=== PATIENT | female | born 1935 | race Caucasian/White ===

== ENCOUNTER → 2017-01-06 | Outpatient (CLI) | payer MEDICARE, BC ==
[~2017-01-06] MED LIST: ALL220TA PO; AMIO200T PO; ASPI325T PO; ASPI81CH CHEW; ASPI81TA45 PO; CITRTAB7 PO; DIGO0.12 PO; DOXY100C PO; FOSA70TA PO; LEVO50TA4 PO; NAPR220C22 PO; PANT40TA3 PO; PRAV10TA PO; PRAV20 PO; TAB-TAB PO; VENTAER INH
== END ==
LOC: CLAB 08:24
PROVIDERS: ATTEND Family Medicine
DX: E03.9 Hypothyroidism, unspecified (principal)
CPT/HCPCS: 36415; 84443

== ENCOUNTER → 2017-03-24 | Outpatient (CLI) | payer MEDICARE, BC ==
[2017-03-24 09:23] LABS: FREE T4 1.14 NG/DL (0.76-1.46)
== END ==
LOC: CLAB 08:37
PROVIDERS: ATTEND Family Medicine
DX: E03.9 Hypothyroidism, unspecified (principal)
CPT/HCPCS: 36415; 84439; 84443

== ENCOUNTER → 2017-05-06 | Outpatient (CLI) | payer MEDICARE, BC ==
[2017-05-06 08:39] LABS: ANION GAP 7 MEQ/L (5-15); AST (GOT) 26 U/L (15-37); BICARBONATE 26.5 MEQ/L (21.0-32.0); BLOOD UREA NITROGEN 24 MG/DL (7-18); CHLORIDE 108 MEQ/L (98-107); POTASSIUM 4.5 MEQ/L (3.5-5.1); SODIUM (NA) 141 MEQ/L (136-145)
[2017-05-06 08:56] LABS: ALKALINE PHOSPHATASE 98 U/L (45-117); ALT (GPT) 52 U/L (10-53); DIGOXIN 0.6 NG/ML (0.8-2.0); FREE T4 1.08 NG/DL (0.76-1.46); GLOMERULAR FILTRATION RATE 68 ML/MIN (>89); GLUCOSE,FASTING 110 MG/DL (74-99); HDL CHOLESTEROL 28.1 MG/DL (40.0-60.0); LDL CHOLESTEROL 51 MG/DL (0-99); TOTAL BILIRUBIN ADULT 0.7 MG/DL (0.2-1.0)
== END ==
LOC: CLAB 07:51
PROVIDERS: ATTEND Family Medicine
DX: E03.9 Hypothyroidism, unspecified (principal); E78.2 Mixed hyperlipidemia; I48.2 Chronic atrial fibrillation
CPT/HCPCS: 36415; 80053; 80061; 80162; 84439; 84443

== ENCOUNTER 2017-05-08 01:40 | Inpatient (IN) | payer MEDICARE, BC ==
[~2017-05-08] VITALS: Ht 162.6 cm; Wt 58.5 kg
[2017-05-08] VITALS (24 sets, daily range): BP systolic 104–150; BP diastolic 48–67; PULSE 68–108; RESP 17–24; TEMP 97.9–99.4; O2SAT 86–100
[~2017-05-08 01:40] MED LIST changes: -AMIO200T PO; -ASPI325T PO; -ASPI81CH CHEW; -DIGO0.12 PO; -DOXY100C PO; -LEVO50TA4 PO; -NAPR220C22 PO; -PANT40TA3 PO; -PRAV10TA PO; -VENTAER INH
--- NOTE | 2017-05-08 01:42 | PD ---
HPI Chief Complaint: Respiratory Symptoms Time Seen by Provider: 01:42 Travel History International Travel<30 days: No Contact w/Intl Traveler<30days: No Traveled to known affect area: No History of Present Illness HPI 82-year-old female came to the emergency room with history of progressive shortness of breath upon exertion. Patient says that this has been going on for past 2-3 months. Today she was unable to get up and go to the kitchen to get some water because of extreme weakness and shortness of breath. She called 911. No history of chest pain. 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 Upon arrival her vital signs were relatively stable. Patient was awake and answering questions appropriately. She looked extremely pale and upon asking she denied any blood in her stools or vomit. No history of abdominal pain or any other pain. Patient says she's been taking one full strength aspirin every day for past few months. [facility] Past Medical History Narrative Medical List of her past medical, surgical, social and family history is reviewed from the nursing note. Arthritis: Yes Autoimmune Disease: No Blood Disorders: No Heart Rhythm Problems: No Cancer: No Cardiovascular Problems: No High Cholesterol: Yes Chest Pain: No Congestive Heart Failure: No COPD: No Cerebrovascular Accident: No Diabetes: No Endocrine: No Genitourinary: No Hepatitis: No Hiatal Hernia: No Immune Disorder: Yes (PSORIASIS) Musculoskeletal: Yes (ARTHRITIS) Neurologic: No Psychiatric: No Reproductive: No Respiratory: No (SMOKES 1/4 PPD) Seizures: No Thyroid Disease: No Menopausal: Yes Past Surgical History Abdominal Surgery: No AICD: No Body Medical Devices: left total knee replaced Cardiac Surgery: No Ear Surgery: No Endocrine Surgery: No Eye Surgery: Yes (RT EYE CATARACT EXTRACTION) Genitourinary Surgery: No Gynecologic Surgery: No Joint Replacement: Yes (LEFT KNEE, RIGHT HIP) Oral Surgery: Yes (CAPS) Pacemaker: No Thoracic Surgery: No Social History Alcohol Use: Yes (OCCASIONALLY - TWICE PER MONTH) Tobacco Use: No (QUIT 10/21-1/ PPD PRIOR TO QUTTING) Substance Use: No Allergies-Medications (Allergen,Severity, Reaction): Coded Allergies: No Known Allergies (Verified , 05/08/17) Comments No known drug allergies. Reported Meds & Prescriptions Reported Meds & Active Scripts Active Reported Digoxin 0.125 Mg Tab 0.125 Mg PO DAILY Levothyroxine (Levothyroxine Sodium) 50 Mcg Tab 50 Mcg PO DAILY Aleve (Naproxen Sodium) 220 Mg Capsule 220 Mg PO DAILY Pravastatin 10 Mg Tab 10 Mg PO DAILY Fosamax (Alendronate Sodium) 70 Mg Tab 70 Mg PO Q7D Aspirin 325 Mg Tab 325 Mg PO DAILY Narrative Medication List of her medications reviewed from the nursing note. Review of Systems Except as stated in HPI: all other systems reviewed are Neg Physical Exam Narrative GENERAL: Awake, alert, elderly, anxious SKIN: Focused skin assessment warm/dry. Pale HEAD: Atraumatic. Normocephalic. EYES: Pupils equal and round. No scleral icterus. No injection or drainage. Pallor ENT: No nasal bleeding or discharge. Mucous membranes pink and moist. NECK: Trachea midline. No JVD. CARDIOVASCULAR: Regular rate and rhythm. No murmur appreciated. RESPIRATORY: No accessory muscle use. Clear to auscultation. Breath sounds equal bilaterally. GASTROINTESTINAL: Abdomen soft, non-tender, nondistended. Hepatic and splenic margins not palpable. MUSCULOSKELETAL: No obvious deformities. No clubbing. No cyanosis. No edema. NEUROLOGICAL: Awake and alert. No obvious cranial nerve deficits. Motor grossly within normal limits. Normal speech. PSYCHIATRIC: Appropriate mood and affect; insight and judgment normal. Data Data Last Documented VS Orders Basic Metabolic Panel (Bmp) (05/08/17 01:56) Complete Blood Count With Diff (05/08/17 01:56) Prothrombin Time / Inr (Pt) (05/08/17 01:56) Type And Screen (05/08/17 01:56) Ecg Monitoring (05/08/17 01:56) Iv Access Insert/Monitor (05/08/17 01:56) Oximetry (05/08/17 01:56) Sodium Chloride 0.9% Flush (Ns Flush) (05/08/17 02:00) Pantoprazole Inj (Protonix Inj) (05/08/17 02:00) Pantoprazole Inj (Protonix Inj) (05/08/17 02:00) Troponin I (05/08/17 01:57) Red Blood Cells (Rbc) (05/08/17 03:10) Blood Product Administration .UPON TRANSFUSION (05/08/17 03:10) Sodium Chlor 0.9% 250 Ml Inj (Ns 250 Ml (05/08/17 03:15) Platelet Pheresis (05/08/17 03:34) Admit To Inpatient (05/08/17 ) Code Status (05/08/17 03:34) Vital Signs (Adult) RALPH.Q1H (05/08/17 03:34) Activity Bed Rest (05/08/17 03:34) Elevate Head Of Bed (05/08/17 03:34) Intake + Output Q1H (05/08/17 03:34) Diet Npo (05/08/17 Breakfast) Sodium Chlor 0.9% 1000 Ml Inj (Ns 1000 M (05/08/17 03:34) Acetaminophen (Tylenol) (05/08/17 03:45) Ondansetron Inj (Zofran Inj) (05/08/17 03:45) Albuterol-Ipratropium Neb (Duoneb Neb) (05/08/17 03:45) Complete Blood Count With Diff (05/09/17 04:00) Basic Metabolic Panel (Bmp) (05/09/17 04:00) Resp Oxygen Danie C Titrat 1-4 L (05/08/17 ) Consult Gastroenterology (05/08/17 ) Special Distribution Clerk / Telemetry RALPH.Q8H (05/08/17 03:34) Scd Bilateral/Knee High RALPH.BID (05/08/17 03:34) Pharmacologic Contraindication (05/08/17 03:34) ^ Initiate Protocol (05/08/17 03:34) Instruction (05/08/17 03:34) [facility] Nursing Information (05/08/17 03:45) Chlorhexidine 2% Cloth (Chlorhexidine 2% (05/08/17 04:00) Chlorhexidine 2% Cloth (Chlorhexidine 2% (05/08/17 03:45) Mrsa Pcr Surveillance (05/08/17 03:34) Inpatient Certification (05/08/17 ) Pantoprazole Inj (Protonix Inj) (05/08/17 09:00) (Hub Use Only)Inp Phy Cons/Ref (05/08/17 ) Pantoprazole Inj (Protonix Inj) (05/08/17 04:00) Admit Order (Ed Use Only) (05/08/17 04:38) Labs Laboratory Tests Test 05/08/17 05/08/17 05/08/17 02:25 03:17 03:51 White Blood Count 8.4 TH/MM3 Red Blood Count 1.24 MIL/MM3 Hemoglobin 3.8 GM/DL Hematocrit 10.7 % Mean Corpuscular Volume 86.0 FL Mean Corpuscular Hemoglobin 30.6 PG Mean Corpuscular Hemoglobin 35.5 % Concent Red Cell Distribution Width 13.6 % Platelet Count 4 TH/MM3 Mean Platelet Volume 8.7 FL Neutrophils (%) (Auto) 56.0 % Lymphocytes (%) (Auto) 39.3 % Monocytes (%) (Auto) 3.7 % Eosinophils (%) (Auto) 1.0 % Basophils (%) (Auto) 0.0 % Neutrophils # (Auto) 4.7 TH/MM3 Lymphocytes # (Auto) 3.3 TH/MM3 Monocytes # (Auto) 0.3 TH/MM3 Eosinophils # (Auto) 0.1 TH/MM3 Basophils # (Auto) 0.0 TH/MM3 CBC Comment AUTO DIFF Differential Comment AUTO DIFF CONFIRMED Platelet Estimate RARE Platelet Morphology Comment NORMAL Reticulocyte Count 0.1 % Absolute Reticulocyte Count 1.2 MIL/L Haptoglobin 132 MG/DL Prothrombin Time 10.8 SEC Prothromb Time International 1.0 RATIO Ratio Sodium Level 142 MEQ/L Potassium Level 4.2 MEQ/L Chloride Level 108 MEQ/L Carbon Dioxide Level 23.1 MEQ/L Anion Gap 11 MEQ/L Blood Urea Nitrogen 33 MG/DL Creatinine 0.89 MG/DL Estimat Glomerular Filtration 61 ML/MIN Rate Random Glucose 122 MG/DL Calcium Level 9.0 MG/DL Iron Level 249 MCG/DL Total Iron Binding Capacity 258 MCG/DL Percent Iron Saturation 96.7 % Ferritin 459 NG/ML Lactate Dehydrogenase 241 U/L Troponin I 0.07 NG/ML Blood Type AB NEGATIVE Antibody Screen NEGATIVE Crossmatch Leukocyte-Reduced Red Blood Cells Blood Bank Comment [facility] Medical Decision Making Medical Screen Exam Complete: Yes Emergency Medical Condition: Yes Medical Record Reviewed: Yes Interpretation(s) Twelve-lead EKG was reviewed by me. Normal sinus rhythm, anterior lateral ST depressions, normal axis. The EKG is grossly changed from the last EKG that's available in our records from 2013. Heart rate of 77 bpm. Differential Diagnosis GI bleed, ACS, congestive heart failure Narrative Course 4 AM blood test results were back and it showed severe anemia and thrombocytopenia. Patient's troponin is elevated as well. Patient was given 2 units of PRBC transfusion. Given her severe anemia I have decided to admit her to the intensive care unit. [facility] accepted the patient. She is obviously not a candidate for anticoagulation given her GI bleed and thrombocytopenia. Critical Care Narrative Aggregate critical care time was 45 minutes. Time to perform other separately billable procedures was not included in the critical care time. My time did not include minutes spent treating any other patients simultaneously or on activities that did not directly contribute to the patient's treatment. The services I provided to this patient were to treat and/or prevent clinically significant deterioration that could result in: Severe symptomatic anemia, thrombocytopenia, elevated troponin, EKG changes I provided critical care services requiring my management, as noted below: Chart data review, documentation time, medication orders and management, vital sign assessments/reviewing monitor data, ordering and reviewing lab tests, ordering and interpreting/reviewing x-rays and diagnostic studies, care of the patient and discussion of the patient with the admitting physicians. Procedures EKG Prior to Arrival: Yes Physician Communication Physician Communication Dr. Ray Diagnosis Primary Impression: Symptomatic anemia Additional Impressions: Thrombocytopenia Elevated troponin I level Abnormal EKG Shortness of breath Admitting Information Admitting Physician Requests: Admit Andrade Valerio MD May 08, 2017 01:42
[2017-05-08] MEDS ORDERED: ASPI81CH CHEW (01:58)
[2017-05-08] MEDS ORDERED: PANTOPRAZOLE INJ 80 MG in SODIUM CHLORIDE 0.9% INJ 100 ML IV SCH ×2 (02:00→04:00)
[2017-05-08] MEDS ORDERED: PANTOPRAZOLE INJ 80 MG in SODIUM CHLORIDE 0.9% INJ 35 ML IV ONE (02:00)
[2017-05-08] MEDS ORDERED: SODIUM CHLORIDE 0.9% FLUSH 10 ML FLUSH IVF PRN (02:00)
[2017-05-08] MEDS ORDERED: LEVO50TA4 PO (02:01)
[2017-05-08] MEDS ORDERED: ASPI325T PO (02:01)
[2017-05-08] MEDS ORDERED: DIGO0.12 PO (02:01)
[2017-05-08] MEDS ORDERED: FOSA70TA PO (02:01)
[2017-05-08] MEDS ORDERED: NAPR220C22 PO (02:01)
[2017-05-08] MEDS ORDERED: PRAV10TA PO (02:01)
[2017-05-08 02:51] LABS: AUTOMATED NEUTROPHIL # 4.7 TH/MM3 (1.8-7.7); EOSINOPHIL # 0.1 TH/MM3 (0-0.4); LYMPH % 39.3 % (9.0-44.0); LYMPHOCYTE # 3.3 TH/MM3 (1.0-4.8); MEAN CORPUSCULAR HEMOGLOBIN 30.6 PG (27.0-34.0); MEAN CORPUSCULAR HGB CONC 35.5 % (32.0-36.0); MONO % 3.7 % (0.0-8.0); RED BLOOD COUNT 1.24 MIL/MM3 (4.00-5.30); RED CELL DISTRIBUTION WIDTH 13.6 % (11.6-17.2); WHITE BLOOD COUNT 8.4 TH/MM3 (4.0-11.0)
[2017-05-08 03:02] LABS: HEMO FLAGS AUTO DIFF
[2017-05-08 03:05] LABS: BICARBONATE 23.1 MEQ/L (21.0-32.0); HEMATOCRIT 10.7 % (35.0-46.0); PLATELET COUNT 4 TH/MM3 (150-450); POTASSIUM 4.2 MEQ/L (3.5-5.1)
[2017-05-08 03:06] LABS: PROTHROMBIN TIME - PATIENT 10.8 SEC (9.8-11.6)
[2017-05-08 03:09] LABS: PLATELET ESTIMATE SMEAR RARE (NORMAL)
[2017-05-08 03:10] LABS: PLATELET MORPHOLOGY NORMAL (NORMAL); SCAN/DIFF AUTO DIFF CONFIRMED
[2017-05-08] MEDS ORDERED: SODIUM CHLOR 0.9% 250 ML INJ 250 ML IV ONE ×2 (03:15→13:15)
[2017-05-08] MEDS ORDERED: SODIUM CHLOR 0.9% 1000 ML INJ 1,000 ML IV SCH (03:34)
[2017-05-08] MEDS ORDERED: CHLORHEXIDINE GLUCONATE 2 % 1 PACK (2 CLOTHS) TOP PRN (03:45)
[2017-05-08] MEDS ORDERED: ONDANSETRON HCL 4 MG/2 ML VIAL IV PRN (03:45)
[2017-05-08] MEDS ORDERED: MISCELLANEOUS NURSING INFORMATION XX SCH (03:45)
[2017-05-08] MEDS ORDERED: ACETAMINOPHEN 325 MG TAB PO PRN (03:45)
--- NOTE | 2017-05-08 03:53 | HHI.HP ---
[facility] Service Critical Care Medicine Primary Care Physician Roe Chairez MD Admission Diagnosis Severe anemia, thrombocytopenia Diagnosis: Chief Complaint: Fatigue Travel History International Travel<30 Days: No Contact w/Intl Traveler <30 Da: No Traveled to Known Affected Are: No History of Present Illness 82 y/o previously active woman presents with fatigue. Feels like legs weigh large amount, heavy. Hgb 3.8 and stool occult blood positive. EKG with ST-T depression. Normotensive. No chest pain. Platelet count 4 total. Excessive bruising for months now. Only change is that thyroid med was recently increased. Past Family Social History Allergies: Coded Allergies: No Known Allergies (Verified , 05/08/17) Past Medical History Past Medical History Arthritis: Yes Autoimmune Disease: No Blood Disorders: No Heart Rhythm Problems: No Cancer: No Cardiovascular Problems: No High Cholesterol: Yes Chest Pain: No Congestive Heart Failure: No COPD: No Cerebrovascular Accident: No Diabetes: No Endocrine: No Genitourinary: No Hepatitis: No Hiatal Hernia: No Immune Disorder: Yes (PSORIASIS) Musculoskeletal: Yes (ARTHRITIS) Neurologic: No Psychiatric: No Reproductive: No Respiratory: No (SMOKES 1/4 PPD) Seizures: No Thyroid Disease: No Menopausal: Yes Past Surgical History Abdominal Surgery: No AICD: No Body Medical Devices: left total knee replaced Cardiac Surgery: No Ear Surgery: No Endocrine Surgery: No Eye Surgery: Yes (RT EYE CATARACT EXTRACTION) Genitourinary Surgery: No Gynecologic Surgery: No Joint Replacement: Yes (LEFT KNEE, RIGHT HIP) Oral Surgery: Yes (CAPS) Pacemaker: No Thoracic Surgery: No Social History Alcohol Use: Yes (OCCASIONALLY - TWICE PER MONTH) Tobacco Use: No (QUIT 10/21-1/2 PPD PRIOR TO QUTTING) Substance Use: No Allergies-Medications Allergies-Medications (Allergen,Severity, Reaction): Coded Allergies: No Known Allergies (Verified , 01/22/15) Reported Meds & Prescriptions Reported Meds & Active Scripts Active Reported Aleve (Naproxen Sodium) 220 Mg Tab 220 Mg PO TID PRN Aspirin 81 mg EC Lo-Dose (Aspirin) 81 Mg Tab 81 Mg PO DAILY Citracal + D3 Maximum (Calcium Citrate/Cholecalciferol) Tab 1 Tab PO DAILY Pravastatin Sodium 20 Mg Tab 10 Mg PO HS Fosamax (Alendronate Sodium) 70 Mg Tab 70 Mg PO Q7D TAKE 30 MINUTES BEFORE THE MORNING MEAL, ONLY WATER pt normally takes on tuesday Multivitamin (Multivitamins) 1 Tab Tab 1 Tab PO DAILY Physical Exam Vital Signs Vital Signs Date Time Temp Pulse Resp B/P Pulse Ox O2 Delivery O2 Flow Rate FiO2 05/08/17 01:46 79 18 95 Nasal Cannula 2 05/08/17 01:42 98.6 82 18 122/58 96 Physical Exam Gen: Ill appearing. Head: Normal. Neck: Supple. Lungs: Clear, no wheezes or crackles. Heat: NL S1S2, 2/6 JUDITH LSB. Abdomen: Soft, no guarding or tenderness. Extremities: Warm, well perfused. Neuro: O X 3, alert, cooperative. Moves 4 limbs to command. Speech clear. Laboratory Laboratory Tests Test 05/08/17 02:25 White Blood Count 8.4 Red Blood Count 1.24 Hemoglobin 3.8 Hematocrit 10.7 Mean Corpuscular Volume 86.0 Mean Corpuscular Hemoglobin 30.6 Mean Corpuscular Hemoglobin 35.5 Concent Red Cell Distribution Width 13.6 Platelet Count 4 Mean Platelet Volume 8.7 Neutrophils (%) (Auto) 56.0 Lymphocytes (%) (Auto) 39.3 Monocytes (%) (Auto) 3.7 Eosinophils (%) (Auto) 1.0 Basophils (%) (Auto) 0.0 Neutrophils # (Auto) 4.7 Lymphocytes # (Auto) 3.3 Monocytes # (Auto) 0.3 Eosinophils # (Auto) 0.1 Basophils # (Auto) 0.0 CBC Comment AUTO DIFF Differential Comment AUTO DIFF CONFIRMED Platelet Estimate RARE Platelet Morphology Comment NORMAL Prothrombin Time 10.8 Prothromb Time International 1.0 Ratio Sodium Level 142 Potassium Level 4.2 Chloride Level 108 Carbon Dioxide Level 23.1 Anion Gap 11 Blood Urea Nitrogen 33 Creatinine 0.89 Estimat Glomerular Filtration 61 Rate Random Glucose 122 Calcium Level 9.0 Troponin I 0.07 Result Diagram: 05/08/1722405/08/17224 Assessment and Plan Assessment and Plan Assessment: 1. Anemia (Hgb 3.8) 2. Thrombocytopenia. 3. Myocardial Ischemia on EKG (not seen by me). Plan: 1. Transfuse 2 units prbcs, one pack platelets. 2. Peripheral blood smear. 3. Hold ASA. 4. Protonix iv bid. 5. No chemical DVT px. 6. SCDs. 7. GI consult after transfusion platelets. 8. NPO. 9. Hematology consult. Overall impression: Critically ill with severe anemia and ischemic changes on ECG. Looks like marrow dysfunction/suppression. Source of blood loss probably slow GI. Critical Care 38 mins Hood Ray MD May 08, 2017 03:53
[2017-05-08] MEDS: PANTOPRAZOLE SODIUM 40 MG VIAL IV PUSH SCH ×2 (10:17→20:29)
[2017-05-08] MEDS ORDERED: MAGNESIUM SULFATE INJ 4 GM in SODIUM CHLORIDE 0.9% INJ 92 ML IV PRN (11:15)
[2017-05-08] MEDS ORDERED: SODIUM PHOSPHATE INJ 30 MMOL in SODIUM CHLOR 0.9% 250 ML INJ 240 ML IV PRN (11:15)
[2017-05-08] MEDS ORDERED: POTASSIUM PHOSPHATE MONOBASIC 500 MG TAB PO/TUBE PRN (11:15)
[2017-05-08] MEDS ORDERED: POTASSIUM PHOSPHATE INJ 30 MMOL in SODIUM CHLOR 0.9% 250 ML INJ 250 ML IV PRN (11:15)
[2017-05-08] MEDS ORDERED: POTASSIUM CHLOR 20 MEQ PREMIX 100 ML IV PRN ×2 (11:15)
[2017-05-08] MEDS ORDERED: MAGNESIUM OXIDE 400 MG TAB PO PRN (11:15)
[2017-05-08] MEDS ORDERED: MAGNESIUM SULFATE INJ 2 GM in SODIUM CHLORIDE 0.9% INJ 96 ML IV PRN (11:15)
[2017-05-08] MEDS ORDERED: POTASSIUM PHOSPHATE MONOBASIC 500 MG TAB PO PRN (11:15)
[2017-05-08] MEDS ORDERED: POTASSIUM CHLOR 40 MEQ PREMIX 100 ML IV PRN ×2 (11:15)
[2017-05-08 11:49] LABS: LDH SERUM 241 U/L (84-246); TRANSFERRIN IRON PROFILE 184 MG/DL (200-360)
[2017-05-08 11:51] LABS: FERRITIN 459 NG/ML (8-252)
[2017-05-08 12:05] LABS: RETIC % 0.1 % (0.4-3.0)
[2017-05-08 12:06] LABS: REVIEW FLAG FINAL
--- NOTE | 2017-05-08 12:07 | EKG ---
Date Performed: 05/08/2017 Time Performed: 01:49:43 PTAGE: 82 years EKG: Sinus rhythm POSSIBLE RIGHT VENTRICULAR CONDUCTION DELAY NONSPECIFIC ST & T-WAVE ABNORMALITY Compared to previous tracing, diffuse ST-T wave changes are now present. BORDERLINE ECG PREVIOUS TRACING : 04/02/2014 09.22 DOCTOR: Meliton Davison Interpretating Date/Time 05/08/2017 12:06:24
[2017-05-08] MEDS: RESP: ALBUTEROL 2.5 MG/IPRATROPIUM 0.5 MG NEB (PRN) INH (17:03)
--- NOTE | 2017-05-08 17:26 | MB ---
cc: JONAH HERNANDEZ M.D. DATE OF CONSULTATION: 05/08/2017 REASON FOR CONSULTATION: Severe anemia. DATE OF : 1935. HISTORY OF PRESENT ILLNESS: Thank you for the consultation. This is an 82-year-old lady who was doing well except in the last week or so when she started having significant fatigue, general weakness, shortness of breath, dyspnea on exertion and stated that her legs felt heavy. She was found to have significant anemia with a hemoglobin of 3.8 and low platelets of 4. The patient denied any GI bleed. No nausea. No vomiting. No hematemesis. No diarrhea or black stool. She had hemoccult positive in the emergency room. The patient denied any other problem except general weakness. No abdominal pain. No change in bowel habits. PAST SURGICAL HISTORY: Significant for eye surgery, left knee and right hip replacement. SOCIAL HISTORY: Positive for occasional alcohol, maybe few times a month. No tobacco or drugs. PAST MEDICAL HISTORY: Significant for: 1. Hypercholesterolemia. 2. Psoriasis. 3. Arthritis. ALLERGIES NO KNOWN DRUG ALLERGIES. MEDICATIONS: Reviewed in the chart. REVIEW OF SYSTEMS: All 12-point negative except for the history of present illness. PHYSICAL EXAMINATION: GENERAL: Alert, oriented no acute distress. VITAL SIGNS: Stable. HEAD, EYES, EARS, NOSE, THROAT: The pupils are reactive to light. NECK: The neck is supple. CHEST: Clear to auscultation and precaution. CARDIAC: Regular rate and rhythm. ABDOMEN: The abdomen is soft, nontender and nondistended. EXTREMITIES: No cyanosis, clubbing or edema. No abnormality in range of motion. NEUROLOGIC: Neurologically intact. PSYCHIATRIC: Psychologically appropriate. LABORATORY DATA: White count 8.4, hemoglobin 3.8, platelets 4. INR 1.0. Iron studies: 249 for the iron saturation 96.7. Troponin 0.07. BUN 33, creatinine 0.89. ASSESSMENT AND PLAN; 82-year-old lady with severe anemia, hemoglobin 3.8, but also very low platelet. The low white count is most likely aplastic anemia but the patient has heme-positive stools and it could be related to bleeding from the mucosal lining because of the low platelets. I am not sure if this is ITP or just bone marrow suppression. 1. I think the patient would need an upper endoscopy and colonoscopy at some point but for now she needs supportive care. 2. Packed RBCs, platelets. 3. Hematology consult. 4. Watch for bleeding. 5. Once she is stable, she will need a colonoscopy and EGD. The patient was accompanied by her daughter and they understand the plan. MD JOSEPH Schneider/JAMES /5:07 PM /5:21 PM
[2017-05-08] MEDS: CHLORHEXIDINE GLUCONATE 2 % 1 PACK (2 CLOTHS) TOP SCH (19:21)
[2017-05-08 19:22] LABS: HEMATOCRIT 21.6 % (35.0-46.0); MEAN CELL VOLUME 85.3 FL (80.0-100.0); MEAN CORPUSCULAR HEMOGLOBIN 29.7 PG (27.0-34.0); MEAN CORPUSCULAR HGB CONC 34.9 % (32.0-36.0); PLATELET COUNT 79 TH/MM3 (150-450); RED BLOOD COUNT 2.53 MIL/MM3 (4.00-5.30); RED CELL DISTRIBUTION WIDTH 14.7 % (11.6-17.2); WHITE BLOOD COUNT 9.7 TH/MM3 (4.0-11.0)
[2017-05-08 19:36] LABS: INDIRECT BILIRUBIN 1.7 MG/DL (0.0-0.8); TOTAL BILIRUBIN ADULT 2.1 MG/DL (0.2-1.0); TOTAL PROTEIN SPE 6.8 GM/DL (6.0-7.6)
[2017-05-09] VITALS (16 sets, daily range): BP systolic 101–141; BP diastolic 55–67; PULSE 70–104; RESP 16–21; TEMP 96.7–98.5; O2SAT 92–99
[2017-05-09 01:20] LABS: HEMATOCRIT 21.6 % (35.0-46.0); MEAN CELL VOLUME 83.3 FL (80.0-100.0); MEAN CORPUSCULAR HEMOGLOBIN 28.4 PG (27.0-34.0); MEAN CORPUSCULAR HGB CONC 34.1 % (32.0-36.0); PLATELET COUNT 72 TH/MM3 (150-450); WHITE BLOOD COUNT 11.1 TH/MM3 (4.0-11.0)
[2017-05-09 01:22] LABS: REVIEW FLAG FINAL
[2017-05-09] MEDS ORDERED: FUROSEMIDE 40 MG/4 ML VIAL IV SCH (01:30)
[2017-05-09] MEDS ORDERED: DIGOXIN 0.125 MG TAB PO SCH (02:45)
[2017-05-09] MEDS: CHLORHEXIDINE GLUCONATE 2 % 1 PACK (2 CLOTHS) TOP SCH (04:11)
[2017-05-09 05:18] LABS: AUTOMATED NEUTROPHIL # 7.4 TH/MM3 (1.8-7.7); BASOPHIL % 0.1 % (0.0-2.0); EOSINOPHIL % 0.1 % (0.0-4.0); HEMATOCRIT 22.4 % (35.0-46.0); LYMPH % 12.5 % (9.0-44.0); LYMPHOCYTE # 1.1 TH/MM3 (1.0-4.8); MEAN CELL VOLUME 85.6 FL (80.0-100.0); MEAN CORPUSCULAR HEMOGLOBIN 29.8 PG (27.0-34.0); MEAN CORPUSCULAR HGB CONC 34.9 % (32.0-36.0); MONO % 5.1 % (0.0-8.0); NEUT % 82.2 % (16.0-70.0); PLATELET COUNT 59 TH/MM3 (150-450); RED BLOOD COUNT 2.62 MIL/MM3 (4.00-5.30); WHITE BLOOD COUNT 9.1 TH/MM3 (4.0-11.0)
[2017-05-09 05:20] LABS: HEMO FLAGS AUTO DIFF
[2017-05-09 05:23] LABS: APTT (PATIENT) 28.2 SEC (24.3-30.1); PROTHROMBIN TIME - PATIENT 10.7 SEC (9.8-11.6)
[2017-05-09 06:03] LABS: BICARBONATE 26.3 MEQ/L (21.0-32.0); POTASSIUM 3.3 MEQ/L (3.5-5.1)
--- NOTE | 2017-05-09 06:16 | RADRPT ---
EXAM DATE/TIME: 05/09/2017 05:26 [place] COMPARISON: CT PULMONARY ANGIOGRAM, May 21, 2014, 11:03. INDICATIONS : History of mediastinal mass, rule out thymoma mass aplastic anemia. RADIATION DOSE: 3.33 CTDIvol (mGy) MEDICAL HISTORY : None SURGICAL HISTORY : None. ENCOUNTER: Initial ACUITY: 1 day PAIN SCALE: 0/10 LOCATION: Bilateral chest TECHNIQUE: Volumetric scanning of the chest was performed. Using automated exposure control and adjustment of t he mA and/or kV according to patient size, radiation dose was kept as low as reasonably achievable to obtain optimal diagnostic quality images. DICOM format image data is available electronically for r eview and comparison. FINDINGS: LUNGS: Abnormal appearance to lungs with multifocal areas of consolidation involving almost the entire right lower lung and subsegmental left lower lobe, posterior segment both upper lobes and scattered areas in the upper lobes. There are some focal consolidative areas in the midlung on the right side. Prio r CT in 2013 demonstrated a 2 cm mass medial midlung; stable in size and PLEURAE: There are small bilateral pleural effusions, measuring up to 12 mm in thickness on both sides. The p leural effusion is similar on the left when compared to 2014 and larger on the right MEDIASTINUM: Stable appearance to the anterior mediastinal mass with some rim calcification; size 3.2 x 4.0 cm. T here is an extension of this mass superiorly which is noncalcified. The configuration and size is un changed from prior CT in May 2014. AXILLAE: Nonspecific bilateral axillary nodes, similar to prior. The largest node measures 13 mm. MUSCULOSKELETAL: Within normal limits for patient age. 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 CONCLUSION: 1. Severe bilateral partially consolidative infiltrates involving all segments of both lungs, a new f inding when compared to 2013. 2. 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 William Carrillo MD on May 09, 2017 at 6:08 Board Certified Radiologist. This report was verified electronically.
[2017-05-09 06:24] LABS: HEMATOCRIT 22.4 % (35.0-46.0); MEAN CELL VOLUME 83.3 FL (80.0-100.0); MEAN CORPUSCULAR HEMOGLOBIN 29.8 PG (27.0-34.0); MEAN CORPUSCULAR HGB CONC 35.8 % (32.0-36.0); PLATELET COUNT 62 TH/MM3 (150-450); RED BLOOD COUNT 2.69 MIL/MM3 (4.00-5.30); RED CELL DISTRIBUTION WIDTH 15.1 % (11.6-17.2); WHITE BLOOD COUNT 8.2 TH/MM3 (4.0-11.0)
[2017-05-09 06:34] LABS: REVIEW FLAG FINAL
[2017-05-09] MEDS ORDERED: FUROSEMIDE 100 MG/10 ML VIAL IV PUSH ONE (07:00)
[2017-05-09 07:02] LABS: PLATELET ESTIMATE SMEAR LOW (NORMAL); PLATELET MORPHOLOGY NORMAL (NORMAL); SCAN/DIFF AUTO DIFF CONFIRMED
--- NOTE | 2017-05-09 08:17 | MB ---
cc: ADELE MEDINA MD, RUBY ANNE E. M.D. DATE OF CONSULTATION: 05/08/2017 DATE OF [address] Bill Mckeon CHIEF COMPLAINT Dr. Mckeon requested consultation for Ms. Vargas regarding pancytopenia and low retic count. HISTORY OF PRESENT ILLNESS Mrs. Vargas is an 82-year-old woman with history of pulmonary embolism, arthritis, hypercholesterolemia, hypothyroidism, psoriasis. She is postmenopausal, has osteoporosis is taking bisphosphonate once weekly. She smokes a quarter pack per day. She has a known pulmonary nodule and mediastinal lesion dating back to 2013. She developed complications of a pulmonary embolism the right lower right middle lobe after a right hip replacement in 2013. Additional findings from that was a 4 cm anterior mediastinal mass and a 2 cm right lung mass which have been stable. 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 There were no other imaging study available. There previous CT PET scan was not available. Mrs. Vargas presents with severe shortness of breath upon exertion. She reports having increasing shortness of breath and fatigue over the last [id number] months. She denies any overt bleeding. Denies any bright red blood per rectum. She was heme positive in the emergency room. She denies any nausea or vomiting. She states her appetite is good. She is trying to maintain her weight being a [employer] lifetime membership. She takes an aspirin since her pulmonary embolism. She has had no problems with her aspirin before. On admission to the hospital her white count is 8.4, hemoglobin of 3.8, platelet count of 4000. MCV was 86. Her retic count is inappropriately low. Haptoglobin is 132. LDH is normal. Iron studies show an elevated ferritin, saturation of 96%. The LDH is 241 which was normal. PT is prolonged. She has no bruising in the skin. No PTT was available. Blood bank test shows the antibody screen is negative up. She is AB negative. She denies any fevers, chills, night sweats. No intercurrent illness. She just had progressive symptoms of shortness of breath. She had a recent increase in her thyroid medicine titrated by her primary physician. It was the same medicine but increase in dose. She noticed leg edema. PAST MEDICAL HISTORY Of: 1. Hypothyroidism. 2. Psoriasis. 3. Arthritis. 4. Chronic tobacco use. 5. Pulmonary embolism. 6. Pulmonary nodule. 7. Anterior mediastinal mass. PAST SURGICAL HISTORY 1. Left knee replacement. 2. Right hip replacement. 3. Right cataract. 4. Oral surgery. SOCIAL HISTORY She drinks alcohol occasionally. Denies any illicit drug use. FAMILY HISTORY Both parents of old age in their late 90s. ALLERGIES NO KNOWN DRUG ALLERGIES. CURRENT MEDICATIONS Include: 1. Digoxin. 2. Levaquin. 3. Aleve. 4. Pravastatin. 5. Fosamax. 6. Aspirin. PHYSICAL EXAMINATION VITAL SIGNS: Temperature 99.3, heart rate 70, respiratory rate 20, blood pressure 117/59, saturation 93%. GENERAL: Mrs. Vargas is a anxious-appearing, pale, 82-year-old woman, quite forgetful. HEENT: Her pupils are round, reactive to light and accommodation. Conjunctivae pink. Oropharynx is clear. NECK: Supple. LUNGS: Clear anteriorly. CARDIOVASCULAR: Exam reveals normal rate, rhythm. ABDOMEN: Benign. No hepatosplenomegaly. EXTREMITIES: Lower extremity with no edema. Left knee surgery scar. LABORATORY DATA As described above. IMAGING No imaging study. ASSESSMENT/PLAN Mrs. Vargas is an 82-year-old woman with multiple medical problems. She has had [id number] months history of progressive symptoms of shortness of breath. She comes in with normocytic anemia, severe and mild thrombocytopenia with evidence of GI bleeding from heme-positive stools. Lengthy discussion with Mrs. Vargas and her daughter present at the consultation and differential. Concern about the GI loss. The GI bleed would explain the decrease in hemoglobin. It is quite concerning that her platelet count is so low at 4000 and her mean platelet volume is normal at 8.7. She responded to transfusion. Her platelet count increased to 27,000. Her hemoglobin improved to 5.1. She is feeling better, additional transfusions have already been ordered. We discussed the differential to include aplastic anemia. This is concerning for that given the low retic counts. There is no evidence of hemolysis. Her LDH is likewise low. Does not appear to be related to a nutritional deficiency as her iron studies are normal. Serum B12 from 2016 was normal. We can certainly checked. She has no signs of coagulopathy. I would, however, obtain baseline PT/PTT. I anticipate that she will would need a bone marrow biopsy to rule out aplastic anemia versus a more acute process. Her peripheral smear will be reviewed. There is no indication of any blasts. Furthermore, acute leukemia would not have LDH that is low. Her questions were answered to her satisfaction. We will continue to follow and I discuss again the possibility of bone marrow biopsy tomorrow depending on the results post her transfusion. We will monitor for her overt signs of GI bleed or blood loss. MD MIGUE Byrd/KK /3:10 PM /8:18 AM MTDEleonora
[2017-05-09] MEDS: PANTOPRAZOLE SODIUM 40 MG VIAL IV PUSH SCH ×2 (08:49→21:27)
[2017-05-09] MEDS: DIGOXIN 0.125 MG TAB PO SCH (08:50)
[2017-05-09 10:09] LABS: RETIC % 0.3 % (0.4-3.0)
[2017-05-09 10:10] LABS: REVIEW FLAG FINAL
[2017-05-09] MEDS ORDERED: LIDOCAINE HCL 2% 20 ML VIAL INFIL ONE (10:15)
[2017-05-09] MEDS ORDERED: LIDOCAINE HCL 1% 20 ML VIAL INFIL ONE (10:15)
[2017-05-09] MEDS: MORPHINE SULFATE 4 MG/ML INJ IV PUSH ONE ×2 (10:30→10:53)
[2017-05-09] MEDS ORDERED: MORPHINE SULFATE 4 MG/ML INJ IV PUSH ONE (10:45)
[2017-05-09] MEDS ORDERED: LORazepam 0.5 MG TAB PO ONE (10:45)
--- NOTE | 2017-05-09 11:39 | PD.ONC.PN ---
Subjective Subjective Remarks Afebrile overnight. Patient resting in bed with daughter at bedside. Had one episode of bloody emesis this morning. Objective Data Date Time Temp Pulse Resp B/P Pulse Ox O2 Delivery O2 Flow Rate FiO2 05/09/17 11:00 94 Nasal Cannula 5.00 05/09/17 10:50 20 05/09/17 07:00 96 Venturi Mask 6.00 50 05/09/17 07:00 95 Venturi Mask 6.00 50 05/09/17 06:00 100 05/09/17 04:00 90 05/09/17 04:00 98.2 90 20 101/55 99 05/09/17 02:45 98.1 94 20 138/67 99 05/09/17 02:00 96 05/09/17 00:00 98.1 104 21 126/67 99 05/09/17 00:00 104 05/08/17 23:00 108 05/08/17 22:22 98 Partial Rebreather 12.00 05/08/17 22:00 80 05/08/17 20:30 90 Venturi Mask 7.00 50 05/08/17 20:20 86 Nasal Cannula 6.00 05/08/17 20:10 100 Partial Rebreather 12.00 05/08/17 20:00 68 05/08/17 20:00 97.9 68 21 137/64 99 05/08/17 19:00 100 Partial Non-Rebreather 05/08/17 18:00 76 05/08/17 17:40 99 Partial Non-Rebreather 05/08/17 17:15 90 Venturi Mask 6.00 50 05/08/17 16:00 80 05/08/17 16:00 98.7 80 24 138/63 92 05/08/17 14:00 71 05/08/17 12:00 99.3 70 21 117/59 93 05/08/17 12:00 70 Result Diagram: 05/09/17 0617 05/09/17 0406 Laboratory Results Laboratory Tests Test 05/08/17 05/08/17 05/08/17 05/09/17 12:40 13:14 18:30 00:51 Hemoglobin 5.1 GM/DL 7.5 GM/DL 7.4 GM/DL Hematocrit 14.8 % 21.6 % 21.6 % Platelet Count 27 TH/MM3 79 TH/MM3 72 TH/MM3 Blood Type AB NEGATIVE Crossmatch Leukocyte-Reduced Red Blood Cells Blood Bank Comment White Blood Count 9.7 TH/MM3 11.1 TH/MM3 Red Blood Count 2.53 MIL/MM3 2.60 MIL/MM3 Mean Corpuscular Volume 85.3 FL 83.3 FL Mean Corpuscular Hemoglobin 29.7 PG 28.4 PG Mean Corpuscular Hemoglobin 34.9 % 34.1 % Concent Red Cell Distribution Width 14.7 % 15.0 % Mean Platelet Volume 7.6 FL 7.6 FL Total Bilirubin 2.1 MG/DL Direct Bilirubin 0.4 MG/DL Indirect Bilirubin 1.7 MG/DL Aspartate Amino Transf 22 U/L (AST/SGOT) Alanine Aminotransferase 41 U/L (ALT/SGPT) Alkaline Phosphatase 84 U/L Troponin I 0.16 NG/ML 0.18 NG/ML Total Protein 6.8 GM/DL Albumin 3.3 GM/DL Test 05/09/17 05/09/17 05/09/17 05/09/17 01:17 04:04 04:06 05:53 Blood Type AB NEGATIVE Crossmatch Leukocyte-Reduced Leukocyte-Reduced Red Blood Red Blood Cells Cells Blood Bank Comment White Blood Count 9.1 TH/MM3 Red Blood Count 2.62 MIL/MM3 Hemoglobin 7.8 GM/DL Hematocrit 22.4 % Mean Corpuscular Volume 85.6 FL Mean Corpuscular Hemoglobin 29.8 PG Mean Corpuscular Hemoglobin 34.9 % Concent Red Cell Distribution Width 15.0 % Platelet Count 59 TH/MM3 Mean Platelet Volume 8.0 FL Neutrophils (%) (Auto) 82.2 % Lymphocytes (%) (Auto) 12.5 % Monocytes (%) (Auto) 5.1 % Eosinophils (%) (Auto) 0.1 % Basophils (%) (Auto) 0.1 % Neutrophils # (Auto) 7.4 TH/MM3 Lymphocytes # (Auto) 1.1 TH/MM3 Monocytes # (Auto) 0.5 TH/MM3 Eosinophils # (Auto) 0.0 TH/MM3 Basophils # (Auto) 0.0 TH/MM3 CBC Comment AUTO DIFF Differential Comment AUTO DIFF CONFIRMED Platelet Estimate LOW Platelet Morphology Comment NORMAL Prothrombin Time 10.7 SEC Prothromb Time International 1.0 RATIO Ratio Activated Partial 28.2 SEC Thromboplast Time Sodium Level 142 MEQ/L Potassium Level 3.3 MEQ/L Chloride Level 106 MEQ/L Carbon Dioxide Level 26.3 MEQ/L Anion Gap 10 MEQ/L Blood Urea Nitrogen 21 MG/DL Creatinine 0.68 MG/DL Estimat Glomerular Filtration 83 ML/MIN Rate Random Glucose 135 MG/DL Calcium Level 8.3 MG/DL Test 05/09/17 06:17 White Blood Count 8.2 TH/MM3 Red Blood Count 2.69 MIL/MM3 Hemoglobin 8.0 GM/DL Hematocrit 22.4 % Mean Corpuscular Volume 83.3 FL Mean Corpuscular Hemoglobin 29.8 PG Mean Corpuscular Hemoglobin 35.8 % Concent Red Cell Distribution Width 15.1 % Platelet Count 62 TH/MM3 Mean Platelet Volume 7.2 FL Reticulocyte Count 0.3 % Absolute Reticulocyte Count 6.7 MIL/L Troponin I 0.16 NG/ML Administered Medications Medications (Trade) Dose Ordered Sig/José Route PRN Reason Start Time Stop Time Status Last Admin Dose Admin Chlorhexidine Gluconate (Chlorhexidine 2% Cloth) 3 pack Taper DAILY@04 TOP 05/08/17 04:00 05/04/18 03:59 05/09/17 04:11 Pantoprazole Sodium 40 mg 40 mg Q12H IV PUSH 05/08/17 09:00 05/09/17 08:49 Potassium Chloride (KCl 20 Meq Premix Inj) 100 ml @ 50 mls/hr Q2H PRN IV For Potassium 3.3 - 3.5 mEq/L 05/08/17 11:15 05/09/17 06:19 Digoxin (Lanoxin) 0.125 mg DAILY PO 05/09/17 09:00 05/09/17 08:50 Objective Remarks GENERAL: Thin female, upright in bed in nad. 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 HEAD: Normocephalic. EYES: No injection or drainage. NECK: Supple, trachea midline. CARDIOVASCULAR: Regular rate and rhythm RESPIRATORY: Breath sounds equal bilaterally. No accessory muscle use. GASTROINTESTINAL: Abdomen soft, non-tender, nondistended. EXTREMITIES: No cyanosis NEUROLOGICAL: No obvious focal deficit. Awake, alert, and oriented x3. Assessment/Plan Problem List: (1) Bicytopenia Status: Acute Plan: s/p bone marrow biopsy on 05/09, pathology pending ++evidence of GI bleeding from heme-positive stools. --low retic count --no evidence of hemolysis. --no signs of coagulopathy. Assessment 82y/o with bicytopenia and low retic count. --history of pulmonary embolism, arthritis, hypercholesterolemia, hypothyroidism , psoriasis. --h/o pulmonary nodule and mediastinal lesion dating back to 2013. --h/o pulmonary embolism right lower right middle lobe after a right hip replacement in 2013. Plan 1. monitor CBC 2. await pathology from bone marrow biopsy Attending Statement The exam, history, and the medical decision-making described in the above note were completed with the assistance of the mid-level provider. I reviewed and agree with the findings presented. I attest that I had a [id number] encounter with the patient on the same day, and personally performed and documented my assessment and findings in the medical record. Pt seen and examined. Discussed with daughter and pt concern for aplastic anemia, low retic count. Discussed with GI heme positive stools likely a secondary problem to the thrombocytopenia. Parvo virus IgG and IgM ordered. BM biopsy performed at bedside. Procedure Note Procedure Procedure: Bone marrow Aspiration and Biopsy Performed by: Cecilia Hughes PA-C and Luna Marie MD Risks and benefits of the procedure were discussed with the patient. Consent was obtained and signed by the patient. The patient was given Morphine 2mg IV as pre-medication. The patient was placed in the right lateral decubitus position. Sterile technique was followed. The site was prepped with Betadine and sterilely draped. Approximately 10 cc 1% lidocaine was used for local anesthesia. Bone marrow aspiration and biopsy were obtained from the left posterior iliac crest. The patient tolerated the procedure without complications and with minimal pain. Cecilia Hughes May 09, 2017 11:39 Luna Marie MD May 09, 2017 23:09
[2017-05-09 11:44] LABS: BONE MARROW PROCESSING COMPLETE; IRON STAIN DONE; JENNER GIEMSA STAIN DONE
--- NOTE | 2017-05-09 13:54 | HHI.CCPN ---
Subjective Remarks/Hospital Course Hospital Course: 82 y/o previously active woman presents with fatigue. Feels like legs weigh large amount, heavy. Hgb 3.8 and stool occult blood positive. EKG with ST-T depression. Normotensive. No chest pain. Platelet count 4 total. Excessive bruising for months now. Only change is that thyroid med was recently increased. Subjective: 05/09: clinically improving. received 4 units prbc total and 3 pack platelets yesterday. hgb improves appropriately and platelets improving, although remains thrombocytopenic. denies complaints to me. early this morning, she became acutely hypoxic requiring lasix 40mg iv, then 80mg iv, now back to [place] o2. Heme saw patient and are concerned about aplastic anemia or bone marrow failure. Objective Vital Signs Date Time Temp Pulse Resp B/P Pulse Ox O2 Delivery O2 Flow Rate FiO2 05/09/17 12:00 74 05/09/17 12:00 98.5 16 107/56 96 05/09/17 11:00 Nasal Cannula 5.00 05/09/17 07:00 50 Intake and Output 05/08/17 05/08/17 05/09/17 08:00 16:00 00:00 Intake Total 1027 ml 626 ml 1268 ml Output Total 800 ml 1300 ml Balance 1027 ml -174 ml -32 ml Result Diagram: 05/09/17 0617 05/09/17 0406 Objective Remarks Gen: frail elderly female, lying in bed. Head: Normal. Neck: Supple. Lungs: bibasilar crackles Heat: normal rate, regular rhythm Abdomen: Soft, no guarding or tenderness. Extremities: Warm, well perfused. Neuro: O X 3, alert, cooperative. Moves 4 limbs to command. Speech clear. A/P Assessment and Plan Assessment: 1. Severe Anemia, either secondary to acute blood loss or from bone marrow failure 2. Thrombocytopenia likely secondary to bone marrow failure, possibly secondary to consumptive process 3. Type II demand ischemia/Elevated Troponins- stable. 4. Acute kidney injury - resolving. 5. Pulmonary edema secondary to intravascular volume overload/Transfusion associated cardiac overload Plan: 1. trend hgb, platelets on serial cbcs. 2. continue to hold ASA 3. continue bid PPI 4. SCDs 5. trend Cr 6. trend trops 7. would recommend outpatient cardiology follow-up when acute issues resolve. likely troponin elevation is secondary to severe anemia and demand ischemia secondary to poor oxygen delivery. denies chest pain. unlikely to be ACS. contra -indicated to anticoagulation given possible GI bleed. 8. appreciate GI input, scope when stable. unlikely to be active GI bleed. hgb stable. per GI, ok to transfer to floor. 9. per heme, ok to transfer to floor. now s/p bone marrow aspirate. 10. No chemical DVT px. 11. advance diet as tolerated. Overall impression: Frail elderly female, likely has bone marrow process, but could have element of GI bleeding. scope when stable. appreciate heme recs for ongoing management. from critical care standpoint, her hgb remain stable and no signs of active ongoing bleeding. will transfer to floor with hospitalist following. Jacky Chavez MD May 09, 2017 13:54
[2017-05-09 15:00] LABS: IMMUNOGLOBULIN A 174 MG/DL (96-532); IMMUNOGLOBULIN G 1430 MG/DL (650-1610)
[2017-05-09 15:10] LABS: IMMUNOGLOBULIN M 179 MG/DL (39-238)
--- NOTE | 2017-05-09 16:21 | HHI.GIFU ---
Subjective Remarks Pt OOB to recliner. Feels tired but otherwise no complaints. Objective Vitals I&O Vital Signs Date Time Temp Pulse Resp B/P Pulse Ox O2 Delivery O2 Flow Rate FiO2 05/09/17 14:00 76 05/09/17 12:00 74 05/09/17 12:00 98.5 102 16 107/56 96 05/09/17 11:00 94 Nasal Cannula 5.00 05/09/17 10:50 20 05/09/17 10:00 78 05/09/17 08:00 77 05/09/17 08:00 98.5 80 18 141/65 05/09/17 07:00 96 Venturi Mask 6.00 50 05/09/17 07:00 95 Venturi Mask 6.00 50 05/09/17 06:00 100 05/09/17 04:00 90 05/09/17 04:00 98.2 90 20 101/55 99 05/09/17 02:45 98.1 94 20 138/67 99 05/09/17 02:00 96 05/09/17 00:00 98.1 104 21 126/67 99 05/09/17 00:00 104 05/08/17 23:00 108 05/08/17 22:22 98 Partial Rebreather 12.00 05/08/17 22:00 80 05/08/17 20:30 90 Venturi Mask 7.00 50 05/08/17 20:20 86 Nasal Cannula 6.00 05/08/17 20:10 100 Partial Rebreather 12.00 05/08/17 20:00 68 05/08/17 20:00 97.9 68 21 137/64 99 05/08/17 19:00 100 Partial Non-Rebreather 05/08/17 18:00 76 05/08/17 17:40 99 Partial Non-Rebreather 05/08/17 17:15 90 Venturi Mask 6.00 50 I/O 05/08/17 05/08/17 05/08/17 05/09/17 05/09/17 05/09/17 07:00 15:00 23:00 07:00 15:00 23:00 Intake Total 300 ml 1353 ml 1268 ml 284 ml 503 ml Output Total 800 ml 1300 ml 2200 ml Balance 300 ml 553 ml -32 ml -1916 ml 503 ml Intake IV Total 552 ml 341 ml 34 ml 253 ml Packed Cells 300 ml 568 ml 500 ml 250 ml 250 ml Platelets 233 ml 427 ml Output Urine Total 800 ml 1300 ml 2200 ml # Voids 5 # Bowel Movements 0 0 Laboratory Laboratory Tests Test 05/08/17 05/09/17 05/09/17 05/09/17 18:30 00:51 01:17 04:04 White Blood Count 9.7 11.1 9.1 Red Blood Count 2.53 2.60 2.62 Hemoglobin 7.5 7.4 7.8 Hematocrit 21.6 21.6 22.4 Mean Corpuscular Volume 85.3 83.3 85.6 Mean Corpuscular Hemoglobin 29.7 28.4 29.8 Mean Corpuscular Hemoglobin 34.9 34.1 34.9 Concent Red Cell Distribution Width 14.7 15.0 15.0 Platelet Count 79 72 59 Mean Platelet Volume 7.6 7.6 8.0 Total Bilirubin 2.1 Direct Bilirubin 0.4 Indirect Bilirubin 1.7 Aspartate Amino Transf 22 (AST/SGOT) Alanine Aminotransferase 41 (ALT/SGPT) Alkaline Phosphatase 84 Troponin I 0.16 0.18 Total Protein 6.8 Albumin 3.3 Blood Type AB NEGATIVE Crossmatch Leukocyte-Reduced Red Blood Cells Blood Bank Comment Neutrophils (%) (Auto) 82.2 Lymphocytes (%) (Auto) 12.5 Monocytes (%) (Auto) 5.1 Eosinophils (%) (Auto) 0.1 Basophils (%) (Auto) 0.1 Neutrophils # (Auto) 7.4 Lymphocytes # (Auto) 1.1 Monocytes # (Auto) 0.5 Eosinophils # (Auto) 0.0 Basophils # (Auto) 0.0 CBC Comment AUTO DIFF Differential Comment AUTO DIFF CONFIRMED Platelet Estimate LOW Platelet Morphology Comment NORMAL Test 05/09/17 05/09/17 05/09/17 05/09/17 04:06 05:53 06:17 14:10 Prothrombin Time 10.7 Prothromb Time International 1.0 Ratio Activated Partial 28.2 Thromboplast Time Sodium Level 142 Potassium Level 3.3 Chloride Level 106 Carbon Dioxide Level 26.3 Anion Gap 10 Blood Urea Nitrogen 21 Creatinine 0.68 Estimat Glomerular Filtration 83 Rate Random Glucose 135 Calcium Level 8.3 Crossmatch Leukocyte-Reduced Red Blood Cells Blood Bank Comment White Blood Count 8.2 Red Blood Count 2.69 Hemoglobin 8.0 Hematocrit 22.4 Mean Corpuscular Volume 83.3 Mean Corpuscular Hemoglobin 29.8 Mean Corpuscular Hemoglobin 35.8 Concent Red Cell Distribution Width 15.1 Platelet Count 62 Mean Platelet Volume 7.2 Reticulocyte Count 0.3 Absolute Reticulocyte Count 6.7 Troponin I 0.16 Total Protein 7.7 Immunoglobulin G Total 1430 Immunoglobulin A 174 Immunoglobulin M 179 Imaging Last Impressions Chest CT 05/08/17 0000 Signed Impressions: Service Date/Time: Tuesday, May 09, 2017 05:26 - CONCLUSION: 1. Severe bilateral partially consolidative infiltrates involving all segments of both lungs, a new finding when compared to 2013. 2. 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 William Carrillo MD Physical Exam HEENT: PERRL; normocephalic; atraumatic; no jaundice. CHEST: rhonchi, wheezes CARDIAC: RRR ABDOMEN: Soft, nondistended, nontender; no hepatosplenomegaly; bowel sounds are present in all four quadrants. EXTREMITIES: No clubbing, cyanosis, or edema. SKIN: Normal; no rash; no jaundice. FLIGHT SERVICE SPECIALIST: No focal deficits; alert and oriented times three. Assessment and Plan Plan ASSESSMENT - anemia - 3.8 on admission, now 8.0. s/p 2 x RBC. heme pos stool. no hematemesis, black stool, diarrhea. - thrombocytopenia - PLT 4 on admission, now 62 s/p 3 x PLT PLAN - EGD/colonoscopy tomorrow - obtain consents - clears today - NPO after midnight - miralax/gatorade prep, with bisacodyl - monitor HH - supportive care - further recommendations to follow This pt seen by myself and Dr Pretty and this note is written on his behalf Vero Macias May 09, 2017 16:21
[2017-05-09] MEDS ORDERED: POLYETHYLENE GLYCOL POWDER 255 GM BTL PO ONE (18:30)
[2017-05-09] MEDS ORDERED: POLYETHYLENE GLYCOL 17 GM PKG PO ONE (20:15)
[2017-05-09] MEDS ORDERED: BISACODYL EC 5 MG TABEC PO ONE (22:00)
[2017-05-10] VITALS (37 sets, daily range): BP systolic 93–148; BP diastolic 50–67; PULSE 62–108; RESP 15–31; TEMP 96.4–98.7; O2SAT 88–97
[2017-05-10] MEDS: CHLORHEXIDINE GLUCONATE 2 % 1 PACK (2 CLOTHS) TOP SCH (04:00)
[2017-05-10 04:49] LABS: HEMATOCRIT 26.7 % (35.0-46.0); MEAN CELL VOLUME 85.1 FL (80.0-100.0); MEAN CORPUSCULAR HEMOGLOBIN 30.2 PG (27.0-34.0); MEAN CORPUSCULAR HGB CONC 35.5 % (32.0-36.0); PLATELET COUNT 59 TH/MM3 (150-450); RED BLOOD COUNT 3.14 MIL/MM3 (4.00-5.30); RED CELL DISTRIBUTION WIDTH 15.1 % (11.6-17.2); WHITE BLOOD COUNT 5.6 TH/MM3 (4.0-11.0)
[2017-05-10 04:58] LABS: REVIEW FLAG FINAL
[2017-05-10 05:32] LABS: BICARBONATE 30.7 MEQ/L (21.0-32.0)
[2017-05-10 05:33] LABS: POTASSIUM 3.6 MEQ/L (3.5-5.1)
--- NOTE | 2017-05-10 07:48 | EKG ---
Date Performed: 05/08/2017 Time Performed: 22:49:54 PTAGE: 82 years EKG: Atrial fibrillation with rapid ventricular response with PVC(s) Extensive ST-T changes may be due to myocardial ischemia Abnormal ECG NO PREVIOUS TRACING DOCTOR: Mega Deluna Interpretating Date/Time 05/10/2017 07:44:20
[2017-05-10] MEDS: DIGOXIN 0.125 MG TAB PO SCH (07:58)
[2017-05-10] MEDS: PANTOPRAZOLE SODIUM 40 MG VIAL IV PUSH SCH ×2 (07:58→23:30)
[2017-05-10 09:19] LABS: ALBUMIN SPE 3.79 GM/DL (3.50-5.00); ALPHA 1 GLOBULIN 0.24 GM/DL (0.11-0.29); ALPHA 2 GLOBULIN 0.64 GM/DL (0.22-1.00); BETA GLOBULINS (SPE) 0.69 GM/DL (0.53-1.03)
--- NOTE | 2017-05-10 11:51 | HHI.PR ---
Subjective Remarks The patient was resting comfortably in bed. She was slightly agitated that the procedure got put on hold secondary to her atrial fibrillation. Her family was at the bedside and their questions were answered. Objective Vitals Vital Signs Date Time Temp Pulse Resp B/P Pulse Ox O2 Delivery O2 Flow Rate FiO2 05/10/17 10:06 Nasal Cannula 05/10/17 09:55 Nasal Cannula 4.00 50 05/10/17 08:00 97.6 74 20 105/53 96 05/10/17 04:00 96.4 83 18 148/67 95 05/10/17 03:39 93 Nasal Cannula 3.50 05/10/17 00:00 97.0 76 18 111/55 93 05/09/17 21:27 Nasal Cannula 4.00 05/09/17 20:02 70 05/09/17 20:00 97.2 74 17 117/58 92 05/09/17 18:30 96.7 71 18 138/66 92 05/09/17 18:19 71 05/09/17 16:00 73 05/09/17 16:00 97.7 74 20 123/61 99 05/09/17 14:00 76 05/09/17 12:00 74 05/09/17 12:00 98.5 102 16 107/56 96 I/O 05/09/17 05/09/17 05/09/17 05/10/17 05/10/17 05/10/17 07:00 15:00 23:00 07:00 15:00 23:00 Intake Total 284 ml 503 ml Output Total 2200 ml Balance -1916 ml 503 ml Intake IV Total 34 ml 253 ml Packed Cells 250 ml 250 ml Output Urine Total 2200 ml # Voids 5 1 2 # Bowel Movements 0 2 Result Diagram: 05/10/17 0437 05/10/17 0437 Imaging Last Impressions Chest CT 05/08/17 0000 Signed Impressions: Service Date/Time: Tuesday, May 09, 2017 05:26 - CONCLUSION: 1. Severe bilateral partially consolidative infiltrates involving all segments of both lungs, a new finding when compared to 2013. 2. 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 William Carrillo MD Objective Remarks Gen: frail elderly female, lying in bed, NAD. Head: Normal. Neck: Supple. Lungs: Bibasilar crackles Heart: Irregularly irregular Abdomen: Soft, no guarding or tenderness. Extremities: Warm, well perfused. Neuro: O X 3, alert, cooperative. Moves 4 limbs to command. Speech clear. Psych: Mood and affect appropriate Medications and IVs Current Medications Medications (Trade) Dose Ordered Sig/José Route Start Time Stop Time Status Last Admin (NS Flush) 2 ml UNSCH PRN IVF 05/08/17 02:00 (Tylenol) 650 mg Q6H PRN PO 05/08/17 03:45 (Zofran Inj) 4 mg Q6H PRN IV 05/08/17 03:45 Miscellaneous Information 1 Q361D XX 05/08/17 03:45 (Chlorhexidine 2% Cloth) 3 pack Taper DAILY@04 TOP 05/08/17 04:00 05/04/18 03:59 05/09/17 04:11 (Chlorhexidine 2% Cloth) 3 pack UNSCH PRN TOP 05/08/17 03:45 (Protonix Inj) 40 mg Q12H IV PUSH 05/08/17 09:00 05/10/17 07:58 Magnesium Oxide 800 mg 800 mg UNSCH PRN PO 05/08/17 11:15 Magnesium Sulfate 4 gm/Sodium Chloride 100 ml @ 50 mls/hr UNSCH PRN IV 05/08/17 11:15 Magnesium Sulfate 2 gm/Sodium Chloride 100 ml @ 50 mls/hr UNSCH PRN IV 05/08/17 11:15 Potassium Chloride 100 ml @ 50 mls/hr Q2H PRN IV 05/08/17 11:15 Potassium Chloride 100 ml @ 50 mls/hr Q2H PRN IV 05/08/17 11:15 05/09/17 06:19 Potassium Chloride 100 ml @ 50 mls/hr Q2H PRN IV 05/08/17 11:15 (KCl 40 Meq Premix Inj) 100 ml @ 25 mls/hr UNSCH PRN IV 05/08/17 11:15 (K-Phos) 2,000 mg Q4H PRN PO 05/08/17 11:15 Potassium Phosphate 2000 mg 2,000 mg UNSCH PRN PO/TUBE 05/08/17 11:15 Potassium Phosphate 30 mmol/ Sodium Chloride 260 ml @ 42 mls/hr UNSCH PRN IV 05/08/17 11:15 (Sodium Phosphate Inj/NS 250 ml Inj) 250 ml @ 42 mls/hr UNSCH PRN IV 05/08/17 11:15 (Lanoxin) 0.125 mg DAILY PO 05/09/17 09:00 05/10/17 07:58 A/P Assessment and Plan Severe anemia/ Thrombocytopenia Secondary to acute blood loss or from bone marrow failure. GI and oncology consults appreciated. S/p multiple transfusions. - EGD/ colonoscopy per GI. - bone marrow biopsy results pending. - follow CBC and transfuse as needed. - PPI BID. Type II demand ischemia/ Elevated Troponins/ A fib Cardiology consult was requested by GI prior to endoscopic procedures. A fib is chronic. - cardiology eval pending. - telemetry. - ASA on hold. Pulmonary edema/ PNA Secondary to intravascular volume overload/ Transfusion associated cardiac overload. S/p NRB. Doing well on nasal cannula. 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 - oxygen and nebs as needed. - diurese as needed. - start doxycycline IV to cover for CAP. PPx: SCDs Discharge Planning Awaiting further evaluation Greg Cid DO May 10, 2017 11:51
[2017-05-10] MEDS ORDERED: AMIODARONE INJ 900 MG in D5W 500 ML (EXCEL BAG) 482 ML IV SCH (12:00)
--- NOTE | 2017-05-10 12:26 | HHI.GIFU ---
Subjective Remarks Went for endoscopy, but developed atrial fibrillation with HR 140's and therefore it was cancelled and she was sent back to room/cardiology consulted. She is now resting in bed in no distress. No shortness of breath, chest pain, nausea, vomiting, or hunger pain "other than hunger pain." Objective Vitals I&O Vital Signs Date Time Temp Pulse Resp B/P Pulse Ox O2 Delivery O2 Flow Rate FiO2 05/10/17 10:06 Nasal Cannula 05/10/17 09:55 Nasal Cannula 4.00 50 05/10/17 08:00 97.6 74 20 105/53 96 05/10/17 04:00 96.4 83 18 148/67 95 05/10/17 03:39 93 Nasal Cannula 3.50 05/10/17 00:00 97.0 76 18 111/55 93 05/09/17 21:27 Nasal Cannula 4.00 05/09/17 20:02 70 05/09/17 20:00 97.2 74 17 117/58 92 05/09/17 18:30 96.7 71 18 138/66 92 05/09/17 18:19 71 05/09/17 16:00 73 05/09/17 16:00 97.7 74 20 123/61 99 05/09/17 14:00 76 I/O 05/09/17 05/09/17 05/09/17 05/10/17 05/10/17 05/10/17 07:00 15:00 23:00 07:00 15:00 23:00 Intake Total 284 ml 503 ml Output Total 2200 ml Balance -1916 ml 503 ml Intake IV Total 34 ml 253 ml Packed Cells 250 ml 250 ml Output Urine Total 2200 ml # Voids 5 1 2 # Bowel Movements 0 2 Laboratory Laboratory Tests Test 05/09/17 05/10/17 14:10 04:37 Troponin I 0.16 Immunoglobulin G Total 1430 Immunoglobulin A 174 Immunoglobulin M 179 White Blood Count 5.6 Red Blood Count 3.14 Hemoglobin 9.5 Hematocrit 26.7 Mean Corpuscular Volume 85.1 Mean Corpuscular Hemoglobin 30.2 Mean Corpuscular Hemoglobin 35.5 Concent Red Cell Distribution Width 15.1 Platelet Count 59 Mean Platelet Volume 8.1 Sodium Level 134 Potassium Level 3.6 Chloride Level 97 Carbon Dioxide Level 30.7 Anion Gap 6 Blood Urea Nitrogen 21 Creatinine 0.75 Estimat Glomerular Filtration 74 Rate Random Glucose 115 Calcium Level 8.4 Imaging Last Impressions Chest CT 05/08/17 0000 Signed Impressions: Service Date/Time: Tuesday, May 09, 2017 05:26 - CONCLUSION: 1. Severe bilateral partially consolidative infiltrates involving all segments of both lungs, a new finding when compared to 2013. 2. 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 William Carrillo MD Physical Exam HEENT: Normocephalic; atraumatic; no jaundice. CHEST: Resp. even/unlabored CARDIAC: RRR ABDOMEN: Soft, nondistended, nontender; no hepatosplenomegaly; bowel sounds are present in all four quadrants. EXTREMITIES: No clubbing, cyanosis, or edema. SKIN: Normal; no rash; no jaundice. 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 Assessment and Plan Plan ASSESSMENT - Severe anemia with H/H of 3.8/10.7 on admission. Hemoccult (+) Stool. S/P 6 units PRBC, 2 units of platelets, 1 unit pooled platelets. HH now 9.5/26.7. Hematology following, s/p bone marrow biopsy (05/09/17), pathology pending. Plan was for EGD/Colonoscopy today, pt went down, but developed afib with rvr, HR 140's and sent back to floor for cardiology evaluation. She now has controlled rate. S/P cardiology evaluation- okay for procedure as long as hr remains controlled- currently 105-110. - Hemoccult (+) Stool. No GI symptoms. EGD/Colonoscopy today. - Thrombocytopenia. Plt of 4 on admission, S/P PLT 4 on admission, s/p 2 units of platelets, 1 unit pooled platelets. Now 59. S/P Bone marrow biopsy. Hematology following. - Afib with RVR in 140's, now rate is controlled at 105-110. S/P Cardiology evaluation, started on amiodarone, cleared for procedure. - Pulmonary edema, PNA. Chest CT (05/08/17)----> 1. Severe bilateral partially consolidative infiltrates involving all segments of both lungs, a new finding when compared to 2013. 2. 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 Improved. Doxycycline PLAN - EGD/Colonoscopy later today - Obtain consents - NPO - Monitor HH - Transfusions per hematology - Await bone marrow biopsy results - Supportive care - Further recommendations to follow - This pt seen by myself and Dr Pretty and this note is written on his behalf Michelle Murrieta May 10, 2017 12:26
[2017-05-10] MEDS ORDERED: AMIODARONE INJ 150 MG in DEXTROSE 5% IN WATER 100ML INJ 97 ML IV ONE ×2 (13:00)
--- NOTE | 2017-05-10 14:31 | ECHRPT ---
Indication: Persistent atrial fibrillation CONCLUSIONS Normal left ventricular size. Wall thickness is normal. The left ventricular systolic function is grossly normal on limited imaging. Ejection fraction is estimated at 60%. No definite wall motion abnormalities. Aortic valve poorly visualized. There is mild tricuspid valve regurgitation. The estimated pulmonary arterial pressure is 38 mmHg. BP: 105 / 53 HR: 74 Rhythm: Atrial fibrillation MEASUREMENTS (Male / Female) Normal Values Technical Quality:Poor 2D ECHO LV Diastolic Diameter PLAX 3.7 cm 4.2 - 5.9 / 3.9 - 5.3 cm LV Systolic Diameter PLAX 3.0 cm IVS Diastolic Thickness 0.9 cm 0.6 - 1.0 / 0.6 - 0.9 cm LVPW Diastolic Thickness 0.9 cm 0.6 - 1.0 / 0.6 - 0.9 cm LV Relative Wall Thickness 0.5 LVOT Diameter 2.0 cm M-MODE Aortic Root Diameter MM 3.1 cm LA Systolic Diameter MM 2.8 cm LA Ao Ratio MM 0.9 AV Cusp Separation MM 1.3 cm DOPPLER AV Peak Velocity 143.0 cm/s AV Peak Gradient 8.2 mmHg LVOT Peak Velocity 135.0 cm/s LVOT Peak Gradient 7.3 mmHg AV Area Cont Eq pk 3.0 cm TR Peak Velocity 265.0 cm/s TR Peak Gradient 28.1 mmHg PV Peak Velocity 136.0 cm/s PV Peak Gradient 7.4 mmHg FINDINGS LEFT VENTRICLE Normal left ventricular size. Wall thickness is normal. The left ventricular systolic function is grossly normal on limited imaging. Ejection fraction is estimated at 60%. No definite wall motion abnormalities. RIGHT VENTRICLE Normal right ventricular size and systolic function. LEFT ATRIUM The left atrial size is normal. RIGHT ATRIUM The right atrial size is normal. ATRIAL SEPTUM Normal atrial septal thickness without atrial level shunting by limited color doppler interrogation. AORTA The aortic root and proximal ascending aorta are normal in size on limited imaging. MITRAL VALVE Structurally normal mitral valve. No mitral valve stenosis or regurgitation. AORTIC VALVE Aortic valve poorly visualized. TRICUSPID VALVE There is mild tricuspid valve regurgitation. The estimated pulmonary arterial pressure is 38 mmHg. PULMONARY VALVE The pulmonary valve is not well visualized. VESSELS The inferior vena cava is normal in size. PERICARDIUM No pericardial effusion. Laron Black MD (Electronically Signed) Final Date:10 May 2017 14:30
[2017-05-10] MEDS: AMIODARONE INJ 450 MG in D5W (EXCEL BAG) 241 ML IV SCH ×2 (16:10→23:33)
[2017-05-10] MEDS: DOXYCYCLINE INJ 100 MG in SODIUM CHLORIDE 0.9% INJ 100 ML IV SCH ×2 (17:15→23:30)
--- NOTE | 2017-05-10 17:23 | MB ---
cc: JENNY NGUYEN DATE OF CONSULTATION 05/10/17 REASON FOR CONSULTATION Atrial fibrillation. HISTORY OF PRESENT ILLNESS The patient is an 82-year-old white female with a history of hyperlipidemia, psoriasis, diverticulosis, pulmonary embolism, paroxysmal atrial fibrillation apparently diagnosed about a year ago who presented to the hospital with a three-month history of increasing shortness of breath. She was found to be severely anemic and is undergoing further evaluation. Last night, she developed atrial fibrillation with a mildly rapid ventricular response. The patient denies palpitations, dizziness, syncope, near-syncope, chest pain, paroxysmal nocturnal dyspnea, orthopnea. In the last several months, she has had intermittent minimal pedal edema. The patient states her primary care physician started her on digoxin about a year ago for paroxysmal atrial fibrillation and recommended daily aspirin at that time as well. PAST MEDICAL HISTORY 1. Hyperlipidemia. 2. Gastroesophageal reflux disease. 3. Allergic rhinitis. 4. Psoriasis. 5. Diverticulosis. 6. Pulmonary embolism 05/21/2014 demonstrated in the right lower and right middle lobes. 7. 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 PAST SURGICAL HISTORY 1. Bunionectomies 2. Left total knee arthroplasty 04/04/2007. 3. Trochanteric nail placement for right femur fracture 04/30/2009 with subsequent removal of the nail 04/09/2014. 4. Right total hip arthroplasty 05/18/2014. 5. Right cataract surgery 12/18/2014. 6, Left cataract surgery 01/22/2015 MEDICATIONS Cardiac medications at home 1. Digoxin 0.125 mg daily. 2. Pravastatin 10 mg q.h.s. 3. Aspirin 325 mg daily. ALLERGIES NO KNOWN DRUG ALLERGIES. FAMILY HISTORY Noncontributory. SOCIAL HISTORY The patient smokes about three cigarettes per day, although she has not smoked in two weeks. She denies alcohol abuse. REVIEW OF SYSTEMS As in the history of present illness, otherwise, negative or noncontributory. She also denies headache, visual changes, unilateral weakness or numbness, abdominal pain, melena, dyspepsia, bright red blood per rectum. PHYSICAL EXAMINATION VITAL SIGNS: Blood pressure 105/53 with a pulse of 115, respirations 20. GENERAL: She is a well-developed, well-nourished white female in no acute distress. HEENT: Jugular venous pressure is normal. Carotid pulses are 2+ bilaterally and without bruits. LUNGS: Examination of the chest reveals diffusely diminished breath sounds. CARDIAC: She has a mildly tachycardic irregular rhythm without S3 or murmur. ABDOMEN: She has a soft, nontender abdomen. Bowel sounds are present. There is no definite hepatosplenomegaly. EXTREMITIES: No clubbing, cyanosis or edema. LABORATORY DATA Hemoglobin on admission of 5.1, today 9.5, WBC 5.6, platelets 59. Potassium 3.6, BUN 21, creatinine 0.75, AST 22, ALT 41, total bilirubin 2.1, INR 1.0. CARDIOLOGY STUDIES EKG from 05/08/2017 at 10:49 p.m. shows atrial fibrillation with a rapid ventricular response, ST abnormality, consider anterolateral ischemia. EKG from 05/08/2017 at 1:49 a.m. shows sinus rhythm, inferior and anterolateral ST and T-wave abnormalities, consider ischemia. IMPRESSION Recurrent paroxysmal atrial fibrillation in this 82-year-old white female with a history of paroxysmal atrial fibrillation apparently diagnosed about a year ago, history of pulmonary embolism 2003, gastroesophageal reflux disease, psoriasis, hyperlipidemia, now admitted with severe anemia. At this time, she remains in atrial fibrillation with mildly increased heart rates. For the most part, she has been asymptomatic. Echocardiogram is pending. There is no definite evidence for acute coronary syndrome, although her EKGs do show dynamic ST-segment and T-wave changes in the inferior and anterolateral leads suggesting ischemia. At this time with her severe thrombocytopenia and severe anemia, she is obviously not a candidate for anticoagulation therapy. Her thromboembolic risk with the atrial fibrillation is mild to moderately increased with her advanced age. She denies any history of hypertension or CVA. RECOMMENDATIONS 1. We will start her on intravenous amiodarone to attempt to restore sinus rhythm. 2. When/if possible would try to resume her daily aspirin. 3. Await her 2-D echo. 4. Consider nuclear stress test in the future as an outpatient. 5. Can proceed with her GI endoscopic procedures later today if her heart rates remain below 100 after initiation of intravenous amiodarone. MD TIFFANIE Rivera/ /12:00 PM /5:16 PM [email or web address]
[2017-05-11] VITALS (36 sets, daily range): BP systolic 98–146; BP diastolic 50–70; PULSE 58–71; RESP 14–33; TEMP 97.8–98.3; O2SAT 87–99
[2017-05-11] MEDS: CHLORHEXIDINE GLUCONATE 2 % 1 PACK (2 CLOTHS) TOP SCH (04:00)
[2017-05-11 05:37] LABS: MEAN CELL VOLUME 84.5 FL (80.0-100.0); MEAN CORPUSCULAR HEMOGLOBIN 29.4 PG (27.0-34.0); MEAN CORPUSCULAR HGB CONC 34.7 % (32.0-36.0); PLATELET COUNT 32 TH/MM3 (150-450); RED BLOOD COUNT 2.96 MIL/MM3 (4.00-5.30); WHITE BLOOD COUNT 5.2 TH/MM3 (4.0-11.0)
[2017-05-11 05:58] LABS: BICARBONATE 29.5 MEQ/L (21.0-32.0); MAGNESIUM 2.5 MG/DL (1.5-2.5)
[2017-05-11 06:51] LABS: REVIEW FLAG FINAL
[2017-05-11] MEDS ORDERED: POTASSIUM CHLORIDE 20 MEQ CONTROLLED RELEASE TAB PO ONE ×2 (07:00→11:00)
--- NOTE | 2017-05-11 07:48 | PD.CARD.PN ---
Subjective Subjective Remarks Resting comfortably. Denies CP, abdominal pain, dizziness, palpitations, nausea. Slept well. Objective Medications Item Value Date Time Amiodarone HCl 250 ml @ 0 mls/hr 05/10/17 1215 450 mg/Dextrose CONTINUOUS/IV 05/10/17 2333 Digoxin 0.125 mg 05/09/17 0900 (Lanoxin) DAILY/PO 05/10/17 0758 Vital Signs / I&O Vital Signs Date Time Temp Pulse Resp B/P Pulse Ox O2 Delivery O2 Flow Rate FiO2 05/11/17 06:00 59 05/11/17 05:45 59 05/11/17 05:30 60 05/11/17 05:15 63 05/11/17 05:00 60 05/11/17 04:45 59 05/11/17 04:45 59 19 107/53 90 05/11/17 04:30 62 05/11/17 04:30 62 33 98/50 92 05/11/17 04:15 63 05/11/17 04:15 63 21 109/54 91 05/11/17 04:00 98.0 62 27 113/52 87 05/11/17 04:00 62 05/11/17 03:45 58 15 112/53 99 05/11/17 03:45 58 05/11/17 03:30 60 15 105/53 99 05/11/17 03:30 60 05/11/17 03:15 59 17 98/51 97 05/11/17 03:15 59 05/11/17 03:10 96 Simple Mask 6.00 05/11/17 03:00 62 25 115/57 98 05/11/17 03:00 62 05/11/17 02:45 62 24 102/52 96 05/11/17 02:45 62 05/11/17 02:30 66 05/11/17 02:30 66 30 98/51 92 05/11/17 02:15 61 18 110/57 94 05/11/17 02:15 61 05/11/17 02:00 62 05/11/17 02:00 62 22 113/55 94 05/11/17 01:45 60 24 102/55 95 05/11/17 01:45 60 05/11/17 01:30 61 05/11/17 01:30 61 18 103/56 94 05/11/17 01:15 63 05/11/17 01:15 63 21 109/59 91 05/11/17 01:00 62 05/11/17 01:00 62 16 106/58 92 05/11/17 00:45 63 05/11/17 00:45 63 16 103/54 92 05/11/17 00:30 62 05/11/17 00:30 62 16 105/56 94 05/11/17 00:15 63 17 104/55 95 05/11/17 00:15 63 05/11/17 00:00 62 05/11/17 00:00 98.0 62 14 103/54 93 05/10/17 23:45 62 15 105/54 95 05/10/17 23:45 62 05/10/17 23:30 63 26 115/56 94 05/10/17 23:30 63 05/10/17 23:15 62 15 108/57 97 05/10/17 23:15 62 05/10/17 23:00 63 05/10/17 23:00 63 15 104/55 96 05/10/17 22:45 62 05/10/17 22:45 62 18 99/50 96 05/10/17 22:30 64 05/10/17 22:30 64 28 107/59 94 05/10/17 22:15 64 16 100/52 94 05/10/17 22:15 64 05/10/17 22:00 65 05/10/17 22:00 65 31 103/57 93 05/10/17 21:45 66 05/10/17 21:30 68 19 102/56 93 05/10/17 21:30 68 05/10/17 21:15 68 05/10/17 21:15 68 20 96/55 93 05/10/17 21:00 67 05/10/17 21:00 67 20 102/55 92 05/10/17 20:45 69 25 96/50 92 05/10/17 20:45 69 05/10/17 20:30 73 24 106/54 93 05/10/17 20:30 73 05/10/17 20:16 82 05/10/17 20:16 82 27 128/58 93 05/10/17 20:00 100 05/10/17 20:00 98.1 100 24 101/54 91 05/10/17 19:45 67 05/10/17 19:45 67 98/54 88 05/10/17 19:30 81 97/52 90 05/10/17 19:30 81 05/10/17 19:22 94 Nasal Cannula 4.00 05/10/17 19:15 101 95/53 91 05/10/17 19:15 101 05/10/17 19:00 91 Nasal Cannula 6.00 05/10/17 19:00 92 110/55 91 05/10/17 19:00 92 05/10/17 18:45 90 106/51 91 05/10/17 18:30 101 108/57 93 05/10/17 18:15 108 98/54 96 05/10/17 18:00 98 05/10/17 18:00 98 103/55 96 05/10/17 17:45 90 94/63 95 05/10/17 17:30 94 93/50 95 05/10/17 17:15 93 105/57 96 05/10/17 17:01 94 107/60 95 05/10/17 17:00 91 93 05/10/17 16:22 96 Nasal Cannula 4.00 05/10/17 16:00 98.5 97 20 108/54 93 05/10/17 16:00 87 05/10/17 12:00 98.7 108 18 101/55 95 05/10/17 10:06 Nasal Cannula 05/10/17 09:55 Nasal Cannula 4.00 50 05/10/17 08:00 97.6 74 20 105/53 96 I/O 05/10/17 05/10/17 05/10/17 05/11/17 05/11/17 05/11/17 07:00 15:00 23:00 07:00 15:00 23:00 Intake Total 423 ml 208 ml Balance 423 ml 208 ml Intake IV Total 423 ml 208 ml # Voids 2 1 # Bowel Movements 2 1 Physical Exam GENERAL: Well developed, well nourished. No acute distress. HEENT: Jugular venous pressure is normal. CHEST: Lungs clear to auscultation anteriorly. CARDIAC: Regular rate and rhythm without S3, S4. II/ JUDITH RUSB. Normal S2. ABDOMEN: Soft, nontender, no hepatosplenomegaly. Bowel sounds present. EXTREMITIES: No clubbing, cyanosis, or edema. Laboratory Laboratory Tests Test 05/10/17 05/11/17 14:30 05:12 Nasal Screen MRSA (PCR) MRSA NOT DETECTED White Blood Count 5.2 TH/MM3 Red Blood Count 2.96 MIL/MM3 Hemoglobin 8.7 GM/DL Hematocrit 25.0 % Mean Corpuscular Volume 84.5 FL Mean Corpuscular Hemoglobin 29.4 PG Mean Corpuscular Hemoglobin 34.7 % Concent Red Cell Distribution Width 15.0 % Platelet Count 32 TH/MM3 Mean Platelet Volume 7.9 FL Sodium Level 139 MEQ/L Potassium Level 3.0 MEQ/L Chloride Level 104 MEQ/L Carbon Dioxide Level 29.5 MEQ/L Anion Gap 6 MEQ/L Blood Urea Nitrogen 17 MG/DL Creatinine 0.59 MG/DL Estimat Glomerular Filtration 98 ML/MIN Rate Random Glucose 105 MG/DL Calcium Level 8.1 MG/DL Magnesium Level 2.5 MG/DL Assessment and Plan Problem List: (1) Paroxysmal atrial fibrillation Assessment and Plan: Back in NSR. Tolerating Amiodarone so far. Echo overall unremarkable. REC continue IV Amiodarone through today stop digoxin resume aspirin if/when possible (2) Elevated troponin I level Assessment and Plan: Minimally elevated troponin levels, possibly from the atrial fibrillation with increased HR's though EKG's with evidence for ischemic ST/T changes. Echo unremarkable. Patient poor candidate at present for invasive cardiac evaluation. REC nuclear stress test as outpatient resume aspirin if/when possible (3) Hyperlipidemia Assessment and Plan: Rec check lipid profile, consider statin. Code Status full code Discussed Condition With patient Problem Qualifiers (1) Hyperlipidemia: Qualified Code: E78.5 - Hyperlipidemia, unspecified hyperlipidemia type Laron Black MD May 11, 2017 07:48
[2017-05-11] MEDS: PANTOPRAZOLE SODIUM 40 MG VIAL IV PUSH SCH ×2 (08:34→21:00)
--- NOTE | 2017-05-11 11:24 | HHI.PR ---
Subjective Remarks The patient was resting in bed comfortably. Her family was at the bedside. She wanted to get for the procedure seen. She didn't want to wear her SCDs. She had no acute complaints. Her questions were answered. Discussed with nursing. Objective Vitals Vital Signs Date Time Temp Pulse Resp B/P Pulse Ox O2 Delivery O2 Flow Rate FiO2 05/11/17 10:00 62 05/11/17 08:18 94 Nasal Cannula 4.00 05/11/17 08:00 63 05/11/17 08:00 98.1 63 30 126/63 96 05/11/17 07:00 95 Nasal Cannula 4.00 05/11/17 06:00 59 05/11/17 05:45 59 05/11/17 05:30 60 05/11/17 05:15 63 05/11/17 05:00 60 05/11/17 04:45 59 05/11/17 04:45 59 19 107/53 90 05/11/17 04:30 62 05/11/17 04:30 62 33 98/50 92 05/11/17 04:15 63 05/11/17 04:15 63 21 109/54 91 05/11/17 04:00 98.0 62 27 113/52 87 05/11/17 04:00 62 05/11/17 03:45 58 15 112/53 99 05/11/17 03:45 58 05/11/17 03:30 60 15 105/53 99 05/11/17 03:30 60 05/11/17 03:15 59 17 98/51 97 05/11/17 03:15 59 05/11/17 03:10 96 Simple Mask 6.00 05/11/17 03:00 62 25 115/57 98 05/11/17 03:00 62 05/11/17 02:45 62 24 102/52 96 05/11/17 02:45 62 05/11/17 02:30 66 05/11/17 02:30 66 30 98/51 92 05/11/17 02:15 61 18 110/57 94 05/11/17 02:15 61 05/11/17 02:00 62 05/11/17 02:00 62 22 113/55 94 05/11/17 01:45 60 24 102/55 95 05/11/17 01:45 60 05/11/17 01:30 61 05/11/17 01:30 61 18 103/56 94 05/11/17 01:15 63 05/11/17 01:15 63 21 109/59 91 05/11/17 01:00 62 05/11/17 01:00 62 16 106/58 92 05/11/17 00:45 63 05/11/17 00:45 63 16 103/54 92 05/11/17 00:30 62 05/11/17 00:30 62 16 105/56 94 05/11/17 00:15 63 17 104/55 95 05/11/17 00:15 63 05/11/17 00:00 62 05/11/17 00:00 98.0 62 14 103/54 93 05/10/17 23:45 62 15 105/54 95 05/10/17 23:45 62 05/10/17 23:30 63 26 115/56 94 05/10/17 23:30 63 05/10/17 23:15 62 15 108/57 97 05/10/17 23:15 62 05/10/17 23:00 63 05/10/17 23:00 63 15 104/55 96 05/10/17 22:45 62 05/10/17 22:45 62 18 99/50 96 05/10/17 22:30 64 05/10/17 22:30 64 28 107/59 94 05/10/17 22:15 64 16 100/52 94 05/10/17 22:15 64 05/10/17 22:00 65 05/10/17 22:00 65 31 103/57 93 05/10/17 21:45 66 05/10/17 21:30 68 19 102/56 93 05/10/17 21:30 68 05/10/17 21:15 68 05/10/17 21:15 68 20 96/55 93 05/10/17 21:00 67 05/10/17 21:00 67 20 102/55 92 05/10/17 20:45 69 25 96/50 92 05/10/17 20:45 69 05/10/17 20:30 73 24 106/54 93 05/10/17 20:30 73 05/10/17 20:16 82 05/10/17 20:16 82 27 128/58 93 05/10/17 20:00 100 05/10/17 20:00 98.1 100 24 101/54 91 05/10/17 19:45 67 05/10/17 19:45 67 98/54 88 05/10/17 19:30 81 97/52 90 05/10/17 19:30 81 05/10/17 19:22 94 Nasal Cannula 4.00 05/10/17 19:15 101 95/53 91 05/10/17 19:15 101 05/10/17 19:00 91 Nasal Cannula 6.00 05/10/17 19:00 92 110/55 91 05/10/17 19:00 92 05/10/17 18:45 90 106/51 91 05/10/17 18:30 101 108/57 93 05/10/17 18:15 108 98/54 96 05/10/17 18:00 98 05/10/17 18:00 98 103/55 96 05/10/17 17:45 90 94/63 95 05/10/17 17:30 94 93/50 95 05/10/17 17:15 93 105/57 96 05/10/17 17:01 94 107/60 95 05/10/17 17:00 91 93 05/10/17 16:22 96 Nasal Cannula 4.00 05/10/17 16:00 98.5 97 20 108/54 93 05/10/17 16:00 87 05/10/17 12:00 98.7 108 18 101/55 95 I/O 05/10/17 05/10/17 05/10/17 05/11/17 05/11/17 05/11/17 07:00 15:00 23:00 07:00 15:00 23:00 Intake Total 423 ml 208 ml Balance 423 ml 208 ml Intake IV Total 423 ml 208 ml # Voids 2 1 # Bowel Movements 2 1 Result Diagram: 05/11/17 0512 05/11/17 0512 Imaging Last Impressions Chest CT 05/08/17 0000 Signed Impressions: Service Date/Time: Tuesday, May 09, 2017 05:26 - CONCLUSION: 1. Severe bilateral partially consolidative infiltrates involving all segments of both lungs, a new finding when compared to 2013. 2. 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 William Carrillo MD Objective Remarks Gen: NAD, resting comfortably. Head: Normal. Neck: Supple. Lungs: Clear to auscultation Heart: Regular rate and rhythm Abdomen: Soft, no guarding or tenderness. Extremities: Warm, well perfused. Neuro: O X 3, alert, cooperative. Moves 4 limbs to command. Speech clear. Psych: Mood and affect appropriate Medications and IVs Current Medications Medications (Trade) Dose Ordered Sig/José Route Start Time Stop Time Status Last Admin (NS Flush) 2 ml UNSCH PRN IVF 05/08/17 02:00 (Tylenol) 650 mg Q6H PRN PO 05/08/17 03:45 (Zofran Inj) 4 mg Q6H PRN IV 05/08/17 03:45 Miscellaneous Information 1 Q361D XX 05/08/17 03:45 (Chlorhexidine 2% Cloth) 3 pack Taper DAILY@04 TOP 05/08/17 04:00 05/04/18 03:59 05/11/17 04:00 (Chlorhexidine 2% Cloth) 3 pack UNSCH PRN TOP 05/08/17 03:45 Pantoprazole Sodium 40 mg 40 mg Q12H IV PUSH 05/08/17 09:00 05/11/17 08:34 Doxycycline Hyclate 100 mg/ Sodium Chloride 100 ml @ 100 mls/hr Q12H IV 05/10/17 13:00 05/10/17 23:30 (Cordarone Inj/ D5W ([place]) Inj) 250 ml @ 0 mls/hr CONTINUOUS IV 05/10/17 12:15 05/12/17 08:00 05/10/17 23:33 A/P Assessment and Plan Severe anemia/ Thrombocytopenia Secondary to acute blood loss or from bone marrow failure. GI and oncology consults appreciated. S/p multiple transfusions. Hemoglobin stable at this time. - EGD/ colonoscopy per GI. - bone marrow biopsy results pending. - follow CBC and transfuse as needed. - PPI BID. Type II demand ischemia/ Elevated Troponins/ A fib Cardiology consult was requested by GI prior to endoscopic procedures. A fib is chronic. Converted to normal sinus rhythm on amiodarone drip. - Follow up with cardiology. Continue amiodarone. - telemetry. - ASA on hold. Pulmonary edema/ PNA Secondary to intravascular volume overload/ Transfusion associated cardiac overload. S/p NRB. Doing well on nasal cannula. 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 - oxygen and nebs as needed. - diurese as needed. - start doxycycline IV to cover for CAP. PPx: SCDs Discharge Planning Awaiting further evaluation Greg Cid DO May 11, 2017 11:24
[2017-05-11] MEDS ORDERED: ePHEDrine/NS 25 MG/5 ML SYR IV ONE (12:00)
[2017-05-11] MEDS ORDERED: PROPOFOL 200 MG/20 ML AMP IV ONE (12:30)
--- NOTE | 2017-05-11 12:32 | PD.ONC.PN ---
Subjective Subjective Remarks Afebrile overnight. Patient resting in bed in nad. Daughter at bedside. Denies pain. EGD today. Objective Data Date Time Temp Pulse Resp B/P Pulse Ox O2 Delivery O2 Flow Rate FiO2 05/11/17 12:00 98.0 65 22 123/66 96 05/11/17 12:00 65 05/11/17 10:00 62 05/11/17 08:18 94 Nasal Cannula 4.00 05/11/17 08:00 63 05/11/17 08:00 98.1 63 30 126/63 96 05/11/17 07:00 95 Nasal Cannula 4.00 05/11/17 06:00 59 05/11/17 05:45 59 05/11/17 05:30 60 05/11/17 05:15 63 05/11/17 05:00 60 05/11/17 04:45 59 05/11/17 04:45 59 19 107/53 90 05/11/17 04:30 62 05/11/17 04:30 62 33 98/50 92 05/11/17 04:15 63 05/11/17 04:15 63 21 109/54 91 05/11/17 04:00 98.0 62 27 113/52 87 05/11/17 04:00 62 05/11/17 03:45 58 15 112/53 99 05/11/17 03:45 58 05/11/17 03:30 60 15 105/53 99 05/11/17 03:30 60 05/11/17 03:15 59 17 98/51 97 05/11/17 03:15 59 05/11/17 03:10 96 Simple Mask 6.00 05/11/17 03:00 62 25 115/57 98 05/11/17 03:00 62 05/11/17 02:45 62 24 102/52 96 05/11/17 02:45 62 05/11/17 02:30 66 05/11/17 02:30 66 30 98/51 92 05/11/17 02:15 61 18 110/57 94 05/11/17 02:15 61 05/11/17 02:00 62 05/11/17 02:00 62 22 113/55 94 05/11/17 01:45 60 24 102/55 95 05/11/17 01:45 60 05/11/17 01:30 61 05/11/17 01:30 61 18 103/56 94 05/11/17 01:15 63 05/11/17 01:15 63 21 109/59 91 05/11/17 01:00 62 05/11/17 01:00 62 16 106/58 92 05/11/17 00:45 63 05/11/17 00:45 63 16 103/54 92 05/11/17 00:30 62 05/11/17 00:30 62 16 105/56 94 05/11/17 00:15 63 17 104/55 95 05/11/17 00:15 63 05/11/17 00:00 62 05/11/17 00:00 98.0 62 14 103/54 93 05/10/17 23:45 62 15 105/54 95 05/10/17 23:45 62 05/10/17 23:30 63 26 115/56 94 05/10/17 23:30 63 05/10/17 23:15 62 15 108/57 97 05/10/17 23:15 62 05/10/17 23:00 63 05/10/17 23:00 63 15 104/55 96 05/10/17 22:45 62 05/10/17 22:45 62 18 99/50 96 05/10/17 22:30 64 05/10/17 22:30 64 28 107/59 94 05/10/17 22:15 64 16 100/52 94 05/10/17 22:15 64 05/10/17 22:00 65 05/10/17 22:00 65 31 103/57 93 05/10/17 21:45 66 05/10/17 21:30 68 19 102/56 93 05/10/17 21:30 68 05/10/17 21:15 68 05/10/17 21:15 68 20 96/55 93 05/10/17 21:00 67 05/10/17 21:00 67 20 102/55 92 05/10/17 20:45 69 25 96/50 92 05/10/17 20:45 69 05/10/17 20:30 73 24 106/54 93 05/10/17 20:30 73 05/10/17 20:16 82 05/10/17 20:16 82 27 128/58 93 05/10/17 20:00 100 05/10/17 20:00 98.1 100 24 101/54 91 05/10/17 19:45 67 05/10/17 19:45 67 98/54 88 05/10/17 19:30 81 97/52 90 05/10/17 19:30 81 05/10/17 19:22 94 Nasal Cannula 4.00 05/10/17 19:15 101 95/53 91 05/10/17 19:15 101 05/10/17 19:00 91 Nasal Cannula 6.00 05/10/17 19:00 92 110/55 91 05/10/17 19:00 92 05/10/17 18:45 90 106/51 91 05/10/17 18:30 101 108/57 93 05/10/17 18:15 108 98/54 96 05/10/17 18:00 98 05/10/17 18:00 98 103/55 96 05/10/17 17:45 90 94/63 95 05/10/17 17:30 94 93/50 95 05/10/17 17:15 93 105/57 96 05/10/17 17:01 94 107/60 95 05/10/17 17:00 91 93 05/10/17 16:22 96 Nasal Cannula 4.00 05/10/17 16:00 98.5 97 20 108/54 93 05/10/17 16:00 87 Result Diagram: 05/11/17 0512 05/11/17 0512 Laboratory Results Laboratory Tests Test 05/10/17 05/11/17 14:30 05:12 Nasal Screen MRSA (PCR) MRSA NOT DETECTED White Blood Count 5.2 TH/MM3 Red Blood Count 2.96 MIL/MM3 Hemoglobin 8.7 GM/DL Hematocrit 25.0 % Mean Corpuscular Volume 84.5 FL Mean Corpuscular Hemoglobin 29.4 PG Mean Corpuscular Hemoglobin 34.7 % Concent Red Cell Distribution Width 15.0 % Platelet Count 32 TH/MM3 Mean Platelet Volume 7.9 FL Sodium Level 139 MEQ/L Potassium Level 3.0 MEQ/L Chloride Level 104 MEQ/L Carbon Dioxide Level 29.5 MEQ/L Anion Gap 6 MEQ/L Blood Urea Nitrogen 17 MG/DL Creatinine 0.59 MG/DL Estimat Glomerular Filtration 98 ML/MIN Rate Random Glucose 105 MG/DL Calcium Level 8.1 MG/DL Magnesium Level 2.5 MG/DL Administered Medications Medications (Trade) Dose Ordered Sig/José Route PRN Reason Start Time Stop Time Status Last Admin Dose Admin Chlorhexidine Gluconate (Chlorhexidine 2% Cloth) 3 pack Taper DAILY@04 TOP 05/08/17 04:00 05/04/18 03:59 05/11/17 04:00 Pantoprazole Sodium 40 mg 40 mg Q12H IV PUSH 05/08/17 09:00 05/11/17 08:34 Doxycycline Hyclate 100 mg/ Sodium Chloride 100 ml @ 100 mls/hr Q12H IV 05/10/17 13:00 05/10/17 23:30 Amiodarone HCl/ Dextrose (Cordarone Inj/ D5W ([place]) Inj) 250 ml @ 0 mls/hr CONTINUOUS IV 05/10/17 12:15 05/12/17 08:00 05/10/17 23:33 Objective Remarks GENERAL: Elderly female, upright in bed in [facility]. 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 1mm puncture wound, left hip, no bruising or bleeding. no erythema or sign of infection. HEAD: Normocephalic. EYES: No injection or drainage. NECK: Supple, trachea midline. CARDIOVASCULAR: Regular rate and rhythm RESPIRATORY: Breath sounds equal bilaterally. No accessory muscle use. GASTROINTESTINAL: Abdomen soft, non-tender, nondistended. EXTREMITIES: No cyanosis NEUROLOGICAL: awake and alert, normal speech. moving all extremities. Assessment/Plan Problem List: (1) Bicytopenia Status: Acute Plan: s/p bone marrow biopsy on 05/09, flow non-diagnostic, awaiting pathology ++evidence of GI bleeding from heme-positive stools. --low retic count --no evidence of hemolysis. --no signs of coagulopathy. Assessment 82y/o with bicytopenia and low retic count. --history of pulmonary embolism, arthritis, hypercholesterolemia, hypothyroidism , psoriasis. --h/o pulmonary nodule and mediastinal lesion dating back to 2013. --h/o pulmonary embolism right lower right middle lobe after a right hip replacement in 2013. Plan 1. await pathology 2. supportive care 3. monitor CBC Attending Statement The exam, history, and the medical decision-making described in the above note were completed with the assistance of the mid-level provider. I reviewed and agree with the findings presented. I attest that I had a [id number] encounter with the patient on the same day, and personally performed and documented my assessment and findings in the medical record. Pt seen and examined. Tolerated Endoscopy. No overt bleeding. Hgb and platelets low but stable, retic inappropriately low. Noted BM biopsy results, hypocellular (not aplastic) however no signs of MDS. Discussed support possible DC and follow in clinic to see if additional transfusion needed. Repeat BM biopsy maybe needed if continue to have cytopenia. Diff dx aplastic anemia versus hypoplastic MDS. Flow cytometry neg for malignant cells. Cytogenetics still pending. 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 No signs of parvo virus infection in BM. Cecilia Hughes May 11, 2017 12:32 Luna Marie MD May 12, 2017 08:43
[2017-05-11] MEDS ORDERED: GLUCAGON 1 MG/ML VIAL IV ONE ×2 (12:47→12:57)
[2017-05-11] MEDS: DOXYCYCLINE INJ 100 MG in SODIUM CHLORIDE 0.9% INJ 100 ML IV SCH (13:00)
--- NOTE | 2017-05-11 13:47 | HHI.GIFU ---
Subjective Remarks Immediate postop note: EGD with biopsy and colonoscopy Indication: severe anemia Meds: MAC Findings: Esophagus normal Stomach: moderate erosive gastritis and duodenitis Duodenum: otherwise normal. Cecum: normal Colon: normal Sigmoid colon severe diverticulosis Rectum: normal Objective Vitals I&O Vital Signs Date Time Temp Pulse Resp B/P Pulse Ox O2 Delivery O2 Flow Rate FiO2 05/11/17 12:00 98.0 65 22 123/66 96 05/11/17 12:00 65 05/11/17 10:00 62 05/11/17 08:18 94 Nasal Cannula 4.00 05/11/17 08:00 63 05/11/17 08:00 98.1 63 30 126/63 96 05/11/17 07:00 95 Nasal Cannula 4.00 05/11/17 06:00 59 05/11/17 05:45 59 05/11/17 05:30 60 05/11/17 05:15 63 05/11/17 05:00 60 05/11/17 04:45 59 05/11/17 04:45 59 19 107/53 90 05/11/17 04:30 62 05/11/17 04:30 62 33 98/50 92 05/11/17 04:15 63 05/11/17 04:15 63 21 109/54 91 05/11/17 04:00 98.0 62 27 113/52 87 05/11/17 04:00 62 05/11/17 03:45 58 15 112/53 99 05/11/17 03:45 58 05/11/17 03:30 60 15 105/53 99 05/11/17 03:30 60 05/11/17 03:15 59 17 98/51 97 05/11/17 03:15 59 05/11/17 03:10 96 Simple Mask 6.00 05/11/17 03:00 62 25 115/57 98 05/11/17 03:00 62 05/11/17 02:45 62 24 102/52 96 05/11/17 02:45 62 05/11/17 02:30 66 05/11/17 02:30 66 30 98/51 92 05/11/17 02:15 61 18 110/57 94 05/11/17 02:15 61 05/11/17 02:00 62 05/11/17 02:00 62 22 113/55 94 05/11/17 01:45 60 24 102/55 95 05/11/17 01:45 60 05/11/17 01:30 61 05/11/17 01:30 61 18 103/56 94 05/11/17 01:15 63 05/11/17 01:15 63 21 109/59 91 05/11/17 01:00 62 05/11/17 01:00 62 16 106/58 92 05/11/17 00:45 63 05/11/17 00:45 63 16 103/54 92 05/11/17 00:30 62 05/11/17 00:30 62 16 105/56 94 05/11/17 00:15 63 17 104/55 95 05/11/17 00:15 63 05/11/17 00:00 62 05/11/17 00:00 98.0 62 14 103/54 93 05/10/17 23:45 62 15 105/54 95 05/10/17 23:45 62 05/10/17 23:30 63 26 115/56 94 05/10/17 23:30 63 05/10/17 23:15 62 15 108/57 97 05/10/17 23:15 62 05/10/17 23:00 63 05/10/17 23:00 63 15 104/55 96 05/10/17 22:45 62 05/10/17 22:45 62 18 99/50 96 05/10/17 22:30 64 05/10/17 22:30 64 28 107/59 94 05/10/17 22:15 64 16 100/52 94 05/10/17 22:15 64 05/10/17 22:00 65 05/10/17 22:00 65 31 103/57 93 05/10/17 21:45 66 05/10/17 21:30 68 19 102/56 93 05/10/17 21:30 68 05/10/17 21:15 68 05/10/17 21:15 68 20 96/55 93 05/10/17 21:00 67 05/10/17 21:00 67 20 102/55 92 05/10/17 20:45 69 25 96/50 92 05/10/17 20:45 69 05/10/17 20:30 73 24 106/54 93 05/10/17 20:30 73 05/10/17 20:16 82 05/10/17 20:16 82 27 128/58 93 05/10/17 20:00 100 05/10/17 20:00 98.1 100 24 101/54 91 05/10/17 19:45 67 05/10/17 19:45 67 98/54 88 05/10/17 19:30 81 97/52 90 05/10/17 19:30 81 05/10/17 19:22 94 Nasal Cannula 4.00 05/10/17 19:15 101 95/53 91 05/10/17 19:15 101 05/10/17 19:00 91 Nasal Cannula 6.00 05/10/17 19:00 92 110/55 91 05/10/17 19:00 92 05/10/17 18:45 90 106/51 91 05/10/17 18:30 101 108/57 93 05/10/17 18:15 108 98/54 96 05/10/17 18:00 98 05/10/17 18:00 98 103/55 96 05/10/17 17:45 90 94/63 95 05/10/17 17:30 94 93/50 95 05/10/17 17:15 93 105/57 96 05/10/17 17:01 94 107/60 95 05/10/17 17:00 91 93 05/10/17 16:22 96 Nasal Cannula 4.00 05/10/17 16:00 98.5 97 20 108/54 93 05/10/17 16:00 87 I/O 05/10/17 05/10/17 05/10/17 05/11/17 05/11/17 05/11/17 07:00 15:00 23:00 07:00 15:00 23:00 Intake Total 423 ml 208 ml Balance 423 ml 208 ml Intake IV Total 423 ml 208 ml # Voids 2 1 # Bowel Movements 2 1 Laboratory Laboratory Tests Test 05/10/17 05/11/17 14:30 05:12 Nasal Screen MRSA (PCR) MRSA NOT DETECTED White Blood Count 5.2 Red Blood Count 2.96 Hemoglobin 8.7 Hematocrit 25.0 Mean Corpuscular Volume 84.5 Mean Corpuscular Hemoglobin 29.4 Mean Corpuscular Hemoglobin 34.7 Concent Red Cell Distribution Width 15.0 Platelet Count 32 Mean Platelet Volume 7.9 Sodium Level 139 Potassium Level 3.0 Chloride Level 104 Carbon Dioxide Level 29.5 Anion Gap 6 Blood Urea Nitrogen 17 Creatinine 0.59 Estimat Glomerular Filtration 98 Rate Random Glucose 105 Calcium Level 8.1 Magnesium Level 2.5 Physical Exam HEENT: Normocephalic; atraumatic; no jaundice. CHEST: Resp. even/unlabored CARDIAC: RRR ABDOMEN: Soft, nondistended, nontender; no hepatosplenomegaly; bowel sounds are present in all four quadrants. EXTREMITIES: No clubbing, cyanosis, or edema. SKIN: Normal; no rash; no jaundice. SINGING MESSENGER: No focal deficits; alert and oriented times three. Assessment and Plan Plan ASSESSMENT - Severe anemia with H/H of 3.8/10.7 on admission. Hemoccult (+) Stool. S/P 6 units PRBC, 2 units of platelets, 1 unit pooled platelets. HH now 9.5/26.7. Hematology following, s/p bone marrow biopsy (05/09/17), pathology pending. Plan was for EGD/Colonoscopy today, pt went down, but developed afib with rvr, HR 140's and sent back to floor for cardiology evaluation. She now has controlled rate. S/P cardiology evaluation- okay for procedure as long as hr remains controlled- currently 105-110. - Hemoccult (+) Stool. No GI symptoms. EGD/Colonoscopy today. - Thrombocytopenia. Plt of 4 on admission, S/P PLT 4 on admission, s/p 2 units of platelets, 1 unit pooled platelets. Now 59. S/P Bone marrow biopsy. Hematology following. - Afib with RVR in 140's, now rate is controlled at 105-110. S/P Cardiology evaluation, started on amiodarone, cleared for procedure. - Pulmonary edema, PNA. Chest CT (05/08/17)----> 1. Severe bilateral partially consolidative infiltrates involving all segments of both lungs, a new finding when compared to 2014. 2. 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 Improved. Doxycycline - EGD and colonoscopy today with biopsy of stomach. Erosive gastritis and diverticulosis. Otherwise normal. No polyps or cancer seen. PLAN - Regular diet - PPI bid - Await biopsy result but OK for discharge if otherwise OK - Monitor HH - Transfusions per hematology - Await bone marrow biopsy results - Supportive care Jai Pretty MD May 11, 2017 13:47
[2017-05-11 19:54] LABS: PARVOVIRUS B19 IGG 7.3 (())
[2017-05-11] MEDS: RESP: ALBUTEROL 2.5 MG/IPRATROPIUM 0.5 MG NEB (PRN) INH (19:57)
[2017-05-11 20:26] LABS: HEMATOCRIT 24.2 % (35.0-46.0); MEAN CELL VOLUME 86.1 FL (80.0-100.0); MEAN CORPUSCULAR HEMOGLOBIN 29.4 PG (27.0-34.0); MEAN CORPUSCULAR HGB CONC 34.1 % (32.0-36.0); PLATELET COUNT 25 TH/MM3 (150-450); RED BLOOD COUNT 2.82 MIL/MM3 (4.00-5.30); RED CELL DISTRIBUTION WIDTH 14.9 % (11.6-17.2); WHITE BLOOD COUNT 3.8 TH/MM3 (4.0-11.0)
[2017-05-11 20:34] LABS: REVIEW FLAG FINAL
[2017-05-11 20:50] LABS: BICARBONATE 26.4 MEQ/L (21.0-32.0); POTASSIUM 3.5 MEQ/L (3.5-5.1)
--- NOTE | 2017-05-11 23:01 | EKG ---
Date Performed: 05/11/2017 Time Performed: 06:41:46 PTAGE: 82 years EKG: Sinus bradycardia. Anterolateral ST changes are nonspecific Borderline ECG NO PREVIOUS TRACING DOCTOR: Jackie Odom Interpretating Date/Time 05/11/2017 22:59:31
[2017-05-12] VITALS (20 sets, daily range): BP systolic 98–153; BP diastolic 53–73; PULSE 62–70; RESP 18–37; TEMP 97.4–98.4; O2SAT 89–96
[2017-05-12] MEDS: DOXYCYCLINE INJ 100 MG in SODIUM CHLORIDE 0.9% INJ 100 ML IV SCH ×3 (02:00→23:01)
[2017-05-12] MEDS: CHLORHEXIDINE GLUCONATE 2 % 1 PACK (2 CLOTHS) TOP SCH ×2 (04:00→19:23)
[2017-05-12] MEDS: PANTOPRAZOLE SODIUM 40 MG VIAL IV PUSH SCH ×2 (07:47→19:28)
[2017-05-12] MEDS: AMIODARONE INJ 450 MG in D5W (EXCEL BAG) 241 ML IV SCH (08:09)
--- NOTE | 2017-05-12 08:59 | PD.CARD.PN ---
Subjective Subjective Remarks Denies CP, dyspnea, dizziness, palpitations, nausea, abdominal pain. Objective Medications Amiodarone drip Vital Signs / I&O Vital Signs Date Time Temp Pulse Resp B/P Pulse Ox O2 Delivery O2 Flow Rate FiO2 05/12/17 06:00 62 05/12/17 04:00 97.4 67 24 112/56 96 05/12/17 04:00 67 05/12/17 02:00 66 05/12/17 00:00 98.4 64 18 112/56 93 05/12/17 00:00 64 05/11/17 22:00 70 05/11/17 20:00 68 05/11/17 20:00 98.3 68 21 131/62 95 05/11/17 19:50 96 Nasal Cannula 2.00 05/11/17 19:00 95 Nasal Cannula 2.00 05/11/17 18:00 71 05/11/17 16:00 66 05/11/17 16:00 97.8 66 26 146/70 95 05/11/17 14:00 65 05/11/17 13:38 97.8 68 16 117/58 96 Nasal Cannula 2 05/11/17 12:00 98.0 65 22 123/66 96 05/11/17 12:00 65 05/11/17 10:00 62 I/O 05/11/17 05/11/17 05/11/17 05/12/17 05/12/17 05/12/17 07:00 15:00 23:00 07:00 15:00 23:00 Intake Total 208 ml 468 ml 268 ml 237 ml Balance 208 ml 468 ml 268 ml 237 ml Intake Oral 250 ml IV Total 208 ml 218 ml 268 ml 237 ml # Voids 1 1 0 # Bowel Movements 0 0 Physical Exam GENERAL: Well developed, well nourished. No acute distress. HEENT: Jugular venous pressure is normal. CHEST: Lungs clear to auscultation anteriorly. CARDIAC: Regular rate and rhythm without S3, S4. II/ JUDITH RUSB. II/ systolic murmur LLSB and apex. Normal S2. ABDOMEN: Soft, nontender, no hepatosplenomegaly. Bowel sounds present. EXTREMITIES: No clubbing, cyanosis, or edema. Laboratory Laboratory Tests Test 05/11/17 20:09 White Blood Count 3.8 TH/MM3 Red Blood Count 2.82 MIL/MM3 Hemoglobin 8.3 GM/DL Hematocrit 24.2 % Mean Corpuscular Volume 86.1 FL Mean Corpuscular Hemoglobin 29.4 PG Mean Corpuscular Hemoglobin 34.1 % Concent Red Cell Distribution Width 14.9 % Platelet Count 25 TH/MM3 Mean Platelet Volume 7.7 FL Sodium Level 140 MEQ/L Potassium Level 3.5 MEQ/L Chloride Level 107 MEQ/L Carbon Dioxide Level 26.4 MEQ/L Anion Gap 7 MEQ/L Blood Urea Nitrogen 18 MG/DL Creatinine 0.59 MG/DL Estimat Glomerular Filtration 98 ML/MIN Rate Random Glucose 113 MG/DL Calcium Level 8.4 MG/DL Assessment and Plan Problem List: (1) Paroxysmal atrial fibrillation Assessment and Plan: Remains in NSR. Tolerating Amiodarone so far. Echo overall unremarkable. REC change to oral Amiodarone 200 mg qd resume aspirin if/when possible OK for discharge from a cardiac standpoint; will f/u patient in the office in about 3 weeks (2) Elevated troponin I level Assessment and Plan: Minimally elevated troponin levels, possibly from the atrial fibrillation with increased HR's though EKG's with evidence for ischemic ST/T changes. Patient denies any recent angina-like symptoms. Echo unremarkable. Patient poor candidate at present for invasive cardiac evaluation. REC nuclear stress test as outpatient resume aspirin if/when possible (3) Hyperlipidemia Assessment and Plan: Awaiting lipid profile, consider statin. Code Status full code Discussed Condition With patient Problem Qualifiers (1) Hyperlipidemia: Qualified Code: E78.5 - Hyperlipidemia, unspecified hyperlipidemia type Laron Black MD May 12, 2017 08:59
[2017-05-12] MEDS ORDERED: diphenhydrAMINE HCL 25 MG CAP PO PRN (09:30)
[2017-05-12] MEDS ORDERED: ACETAMINOPHEN 325 MG TAB PO PRN (09:30)
[2017-05-12] MEDS: AMIODARONE 200 MG TAB PO SCH (10:54)
[2017-05-12] MEDS: LEVOTHYROXINE SODIUM 50 MCG TAB PO SCH (10:54)
--- NOTE | 2017-05-12 11:40 | HHI.DCPOC ---
Discharge Care Plan Diagnosis: (1) Symptomatic anemia (2) Pneumonia (3) Hypoxemia (4) Shortness of breath (5) Elevated troponin I level (6) Paroxysmal atrial fibrillation (7) Bicytopenia Goals to Promote Your Health * To prevent worsening of your condition and complications * To maintain your health at the optimal level Directions to Meet Your Goals Take your medications as prescribed Follow your dietary instruction Follow activity as directed Keep your appointments as scheduled Take your immunizations and boosters as scheduled If your symptoms worsen call your PCP, if no PCP go to Urgent Care Center or Emergency Room Smoking is Dangerous to Your Health. Avoid second hand smoke Call the 24-hour hour crisis hotline for domestic abuse at Greg Cid DO May 12, 2017 11:40
--- NOTE | 2017-05-12 11:40 | HHI.FF ---
Face to Face Verification Diagnosis: (1) Elevated troponin I level (2) Paroxysmal atrial fibrillation (3) Bicytopenia (4) Symptomatic anemia (5) Shortness of breath (6) Pneumonia (7) Hypoxemia Home Health Nursing Order: Medical education Signs/symptoms of disease process Oxygen administration education Medication education-adverse effect Nursing assessment with vital signs I have seen patient Mariza Vargas on 05/12/17. My clinical findings support the need for the requested home health care services because: Ltd mobility - disease progression Patient has SOB Deconditioned w/ increased weakness I certify that my clinical findings support that this patient is homebound because: Unsafe to leave home unassisted Greg Cid DO May 12, 2017 11:40
[2017-05-12] MEDS ORDERED: PANT40TA3 PO ×2 (11:43→11:47)
[2017-05-12] MEDS ORDERED: DOXY100C PO (11:43)
[2017-05-12] MEDS ORDERED: VENTAER INH (11:43)
[2017-05-12] MEDS ORDERED: AMIO200T PO (11:43)
[2017-05-12] MEDS ORDERED: RESP: ALBUTEROL 2.5 MG/IPRATROPIUM 0.5 MG NEB (SCH) NEB ONE (11:45)
--- NOTE | 2017-05-12 11:51 | HHI.PR ---
Subjective Remarks The patient was resting in bed comfortably. She was anxious to go home. Her family was at the bedside. The patient has been having some shortness of breath and wheezing. Apparently she has chronic wheezing. Discussed with nursing. Objective Vitals Vital Signs Date Time Temp Pulse Resp B/P Pulse Ox O2 Delivery O2 Flow Rate FiO2 05/12/17 10:00 66 05/12/17 09:27 96 Nasal Cannula 4.00 05/12/17 09:00 67 37 121/58 95 05/12/17 08:00 64 05/12/17 08:00 97.9 64 22 116/59 92 05/12/17 07:00 92 Nasal Cannula 2.00 05/12/17 07:00 67 28 143/73 94 05/12/17 06:00 62 05/12/17 04:00 97.4 67 24 112/56 96 05/12/17 04:00 67 05/12/17 02:00 66 05/12/17 00:00 98.4 64 18 112/56 93 05/12/17 00:00 64 05/11/17 22:00 70 05/11/17 20:00 68 05/11/17 20:00 98.3 68 21 131/62 95 05/11/17 19:50 96 Nasal Cannula 2.00 05/11/17 19:00 95 Nasal Cannula 2.00 05/11/17 18:00 71 05/11/17 16:00 66 05/11/17 16:00 97.8 66 26 146/70 95 05/11/17 14:00 65 05/11/17 13:38 97.8 68 16 117/58 96 Nasal Cannula 2 05/11/17 12:00 98.0 65 22 123/66 96 05/11/17 12:00 65 I/O 05/11/17 05/11/17 05/11/17 05/12/17 05/12/17 05/12/17 07:00 15:00 23:00 07:00 15:00 23:00 Intake Total 208 ml 468 ml 268 ml 237 ml Balance 208 ml 468 ml 268 ml 237 ml Intake Oral 250 ml IV Total 208 ml 218 ml 268 ml 237 ml # Voids 1 1 0 # Bowel Movements 0 0 Result Diagram: 05/11/17200805/11/172008 Imaging Last Impressions Chest CT 05/08/17 0000 Signed Impressions: Service Date/Time: Tuesday, May 09, 2017 05:26 - CONCLUSION: 1. Severe bilateral partially consolidative infiltrates involving all segments of both lungs, a new finding when compared to 2013. 2. 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 William Carrillo MD Objective Remarks Gen: NAD, resting comfortably. Head: Normal. Neck: Supple. Lungs: Bilateral wheezing and crackles noted Heart: Regular rate and rhythm Abdomen: Soft, no guarding or tenderness. Extremities: Warm, well perfused. Neuro: O X 3, alert, cooperative. Moves 4 limbs to command. Speech clear. Psych: Mood and affect appropriate Medications and IVs Current Medications Medications (Trade) Dose Ordered Sig/José Route Start Time Stop Time Status Last Admin (NS Flush) 2 ml UNSCH PRN IVF 05/08/17 02:00 (Tylenol) 650 mg Q6H PRN PO 05/08/17 03:45 (Zofran Inj) 4 mg Q6H PRN IV 05/08/17 03:45 Miscellaneous Information 1 Q361D XX 05/08/17 03:45 (Chlorhexidine 2% Cloth) 3 pack Taper DAILY@04 TOP 05/08/17 04:00 05/04/18 03:59 05/11/17 04:00 (Chlorhexidine 2% Cloth) 3 pack UNSCH PRN TOP 05/08/17 03:45 Pantoprazole Sodium 40 mg 40 mg Q12H IV PUSH 05/08/17 09:00 05/12/17 07:47 (Vibramycin Inj/ NS Inj) 100 ml @ 100 mls/hr Q12H IV 05/10/17 13:00 05/12/17 02:00 (Cordarone) 200 mg DAILY PO 05/12/17 10:00 05/12/17 10:54 (Synthroid) 50 mcg DAILY@0600 PO 05/12/17 09:30 05/12/17 10:54 (Tylenol) 650 mg Q4H PRN PO 05/12/17 09:30 05/12/17 13:31 (Benadryl) 25 mg Q4H PRN PO 05/12/17 09:30 05/12/17 13:31 A/P Assessment and Plan Pancytopenia GI and oncology consults appreciated. S/p multiple transfusions. Bone marrow biopsy revealed hypocellular marrow. EGD/ colonoscopy per GI with erosive gastritis and diverticulosis. - bone marrow biopsy results pending. - follow CBC and transfuse as needed. Additional transfusion ordered by hematology 05/12. - PPI BID. Type II demand ischemia/ Elevated Troponins/ A fib Cardiology consult was requested by GI prior to endoscopic procedures. A fib is chronic. Converted to normal sinus rhythm on amiodarone drip. - Follow up with cardiology. Continue PO amiodarone. - telemetry. - ASA on hold. Pulmonary edema/ PNA Secondary to intravascular volume overload/ Transfusion associated cardiac overload. S/p NRB. Doing well on nasal cannula. 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 She requires home oxygen per the walk test. - oxygen and nebs as needed. Home oxygen to be arranged. - diurese as needed. - started doxycycline IV to cover for CAP. - pulmonology consult requested. - incentive spirometry. PPx: SCDs Discharge Planning Anticipate d/c following pulmonology evaluation Greg Cid DO May 12, 2017 11:51
[2017-05-12 12:00] LABS: BICARBONATE 27.4 MEQ/L (21.0-32.0); POTASSIUM 3.8 MEQ/L (3.5-5.1)
[2017-05-12 12:03] LABS: HDL CHOLESTEROL 29.7 MG/DL (40.0-60.0)
[2017-05-12 12:56] LABS: HEMATOCRIT 23.3 % (35.0-46.0); MEAN CELL VOLUME 85.9 FL (80.0-100.0); MEAN CORPUSCULAR HEMOGLOBIN 30.1 PG (27.0-34.0); RED BLOOD COUNT 2.71 MIL/MM3 (4.00-5.30); RED CELL DISTRIBUTION WIDTH 15.1 % (11.6-17.2); WHITE BLOOD COUNT 3.5 TH/MM3 (4.0-11.0)
[2017-05-12 13:01] LABS: REVIEW FLAG FINAL
[2017-05-12 13:05] LABS: PLATELET COUNT 18 TH/MM3 (150-450)
--- NOTE | 2017-05-12 13:42 | RADRPT ---
EXAM DATE/TIME: 05/12/2017 12:45 [facility] COMPARISON: No previous studies available for comparison. INDICATIONS : Difficulty breathing. MEDICAL HISTORY : None. SURGICAL HISTORY : None. ENCOUNTER: Subsequent ACUITY: 1 day PAIN SCORE: 0/10 LOCATION: Bilateral chest FINDINGS: Mild increased interstitial markings bilaterally consistent with pulmonary vascular congestion versus pneumonia. Clinical correlation is recommended. The heart is top normal in size. Degenerative thakkar es and scoliosis of the thoracolumbar spine are noted. CONCLUSION: 1. Mild diffuse increased interstitial markings consistent with pulmonary vascular congestion versus pneumonia. Clinical correlation is recommended. 2. Degenerative changes and scoliosis of the thoracolumbar spine. Vaibhav Mendes MD on May 12, 2017 at 13:25 Board Certified Radiologist. This report was verified electronically.
--- NOTE | 2017-05-12 14:57 | PD.ONC.PN ---
Subjective Subjective Remarks Afebrile overnight. Patient resting in bed in nad. Son at bedside. She is eager to go home. Objective Data Date Time Temp Pulse Resp B/P Pulse Ox O2 Delivery O2 Flow Rate FiO2 05/12/17 12:00 66 05/12/17 12:00 98.2 66 24 98/53 91 05/12/17 11:00 68 30 126/61 94 05/12/17 10:15 70 25 112/57 89 05/12/17 10:00 66 05/12/17 10:00 66 26 104/58 92 05/12/17 09:27 96 Nasal Cannula 4.00 05/12/17 09:00 67 37 121/58 95 05/12/17 08:00 64 05/12/17 08:00 97.9 64 22 116/59 92 05/12/17 07:00 92 Nasal Cannula 2.00 05/12/17 07:00 67 28 143/73 94 05/12/17 06:00 62 05/12/17 04:00 97.4 67 24 112/56 96 05/12/17 04:00 67 05/12/17 02:00 66 05/12/17 00:00 98.4 64 18 112/56 93 05/12/17 00:00 64 05/11/17 22:00 70 05/11/17 20:00 68 05/11/17 20:00 98.3 68 21 131/62 95 05/11/17 19:50 96 Nasal Cannula 2.00 05/11/17 19:00 95 Nasal Cannula 2.00 05/11/17 18:00 71 05/11/17 16:00 66 05/11/17 16:00 97.8 66 26 146/70 95 05/12/17 05/12/17 05/12/17 07:00 15:00 23:00 Intake Total 237 ml Balance 237 ml Result Diagram: 05/12/17 1220 05/12/17 1102 Laboratory Results Laboratory Tests Test 05/11/17 05/12/17 05/12/17 05/12/17 20:09 11:02 12:20 13:10 White Blood Count 3.8 TH/MM3 3.5 TH/MM3 Red Blood Count 2.82 MIL/MM3 2.71 MIL/MM3 Hemoglobin 8.3 GM/DL 8.2 GM/DL Hematocrit 24.2 % 23.3 % Mean Corpuscular Volume 86.1 FL 85.9 FL Mean Corpuscular Hemoglobin 29.4 PG 30.1 PG Mean Corpuscular Hemoglobin 34.1 % 35.0 % Concent Red Cell Distribution Width 14.9 % 15.1 % Platelet Count 25 TH/MM3 18 TH/MM3 Mean Platelet Volume 7.7 FL 7.5 FL Sodium Level 140 MEQ/L 141 MEQ/L Potassium Level 3.5 MEQ/L 3.8 MEQ/L Chloride Level 107 MEQ/L 108 MEQ/L Carbon Dioxide Level 26.4 MEQ/L 27.4 MEQ/L Anion Gap 7 MEQ/L 6 MEQ/L Blood Urea Nitrogen 18 MG/DL 17 MG/DL Creatinine 0.59 MG/DL 0.61 MG/DL Estimat Glomerular Filtration 98 ML/MIN 94 ML/MIN Rate Random Glucose 113 MG/DL 111 MG/DL Calcium Level 8.4 MG/DL 8.6 MG/DL Triglycerides Level 138 MG/DL Cholesterol Level 140 MG/DL LDL Cholesterol 83 MG/DL HDL Cholesterol 29.7 MG/DL Cholesterol/HDL Ratio 4.71 RATIO Thyroid Stimulating Hormone 5.700 uIU/ML 3rd Gen Blood Type AB NEGATIVE Antibody Screen NEGATIVE Crossmatch Leukocyte-Reduced Red Blood Cells Blood Bank Comment Administered Medications Medications (Trade) Dose Ordered Sig/José Route PRN Reason Start Time Stop Time Status Last Admin Dose Admin Chlorhexidine Gluconate (Chlorhexidine 2% Cloth) 3 pack Taper DAILY@04 TOP 05/08/17 04:00 05/04/18 03:59 05/11/17 04:00 Pantoprazole Sodium 40 mg 40 mg Q12H IV PUSH 05/08/17 09:00 05/12/17 07:47 Doxycycline Hyclate/Sodium Chloride (Vibramycin Inj/ NS Inj) 100 ml @ 100 mls/hr Q12H IV 05/10/17 13:00 05/12/17 02:00 Amiodarone HCl (Cordarone) 200 mg DAILY PO 05/12/17 10:00 05/12/17 10:54 Levothyroxine Sodium (Synthroid) 50 mcg DAILY@0600 PO 05/12/17 09:30 05/12/17 10:54 Objective Remarks GENERAL: Elderly female, sitting up in bed in [facility]. 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 HEAD: Normocephalic. EYES: No injection or drainage. NECK: Supple, trachea midline. CARDIOVASCULAR: +S1/S2 RESPIRATORY: diminished at bases. scattered rhonchi. On 4L O2 via NC GASTROINTESTINAL: Abdomen soft, non-tender, nondistended. EXTREMITIES: No cyanosis NEUROLOGICAL: awake and alert, normal speech. moving all extremities. Assessment/Plan Problem List: (1) Bicytopenia Status: Acute Plan: s/p bone marrow biopsy on 05/09, +hypocellular bone marrow ++evidence of GI bleeding from heme-positive stools. --low retic count --no evidence of hemolysis. --no signs of coagulopathy. Assessment 82y/o with bicytopenia and low retic count. --history of pulmonary embolism, arthritis, hypercholesterolemia, hypothyroidism , psoriasis. --h/o pulmonary nodule and mediastinal lesion dating back to 2013. --h/o pulmonary embolism right lower right middle lobe after a right hip replacement in 2013. Plan 1. clear for discharge 2. give 1 unit pRBC 3. follow up in clinic within a week Attending Statement The exam, history, and the medical decision-making described in the above note were completed with the assistance of the mid-level provider. I reviewed and agree with the findings presented. I attest that I had a [id number] encounter with the patient on the same day, and personally performed and documented my assessment and findings in the medical record. Pt seen and examined. Reviewed BM biopsy results. Noted differential include MDS in evolution or aplastic anemia. Noted cellularity 15-20%. Discuss preparing to transfuse and f/u in clinic. Await cytogenetic results. May need repeat BM Bx evaluation. Supportive transfusion for now. Cecilia Hughes May 12, 2017 14:57 Luna Marie MD May 12, 2017 16:29
--- NOTE | 2017-05-12 15:31 | HHI.GIFU ---
Subjective Remarks Resting in bed. No obvious active bleeding. States she feels "well" Objective Vitals I&O Vital Signs Date Time Temp Pulse Resp B/P Pulse Ox O2 Delivery O2 Flow Rate FiO2 05/12/17 12:00 66 05/12/17 12:00 98.2 66 24 98/53 91 05/12/17 11:00 68 30 126/61 94 05/12/17 10:15 70 25 112/57 89 05/12/17 10:00 66 05/12/17 10:00 66 26 104/58 92 05/12/17 09:27 96 Nasal Cannula 4.00 05/12/17 09:00 67 37 121/58 95 05/12/17 08:00 64 05/12/17 08:00 97.9 64 22 116/59 92 05/12/17 07:00 92 Nasal Cannula 2.00 05/12/17 07:00 67 28 143/73 94 05/12/17 06:00 62 05/12/17 04:00 97.4 67 24 112/56 96 05/12/17 04:00 67 05/12/17 02:00 66 05/12/17 00:00 98.4 64 18 112/56 93 05/12/17 00:00 64 05/11/17 22:00 70 05/11/17 20:00 68 05/11/17 20:00 98.3 68 21 131/62 95 05/11/17 19:50 96 Nasal Cannula 2.00 05/11/17 19:00 95 Nasal Cannula 2.00 05/11/17 18:00 71 05/11/17 16:00 66 05/11/17 16:00 97.8 66 26 146/70 95 I/O 05/11/17 05/11/17 05/11/17 05/12/17 05/12/17 05/12/17 07:00 15:00 23:00 07:00 15:00 23:00 Intake Total 208 ml 468 ml 268 ml 237 ml Balance 208 ml 468 ml 268 ml 237 ml Intake Oral 250 ml IV Total 208 ml 218 ml 268 ml 237 ml # Voids 1 1 0 # Bowel Movements 0 0 Laboratory Laboratory Tests Test 05/11/17 05/12/17 05/12/17 05/12/17 20:09 11:02 12:20 13:10 White Blood Count 3.8 3.5 Red Blood Count 2.82 2.71 Hemoglobin 8.3 8.2 Hematocrit 24.2 23.3 Mean Corpuscular Volume 86.1 85.9 Mean Corpuscular Hemoglobin 29.4 30.1 Mean Corpuscular Hemoglobin 34.1 35.0 Concent Red Cell Distribution Width 14.9 15.1 Platelet Count 25 18 Mean Platelet Volume 7.7 7.5 Sodium Level 140 141 Potassium Level 3.5 3.8 Chloride Level 107 108 Carbon Dioxide Level 26.4 27.4 Anion Gap 7 6 Blood Urea Nitrogen 18 17 Creatinine 0.59 0.61 Estimat Glomerular Filtration 98 94 Rate Random Glucose 113 111 Calcium Level 8.4 8.6 Triglycerides Level 138 Cholesterol Level 140 LDL Cholesterol 83 HDL Cholesterol 29.7 Cholesterol/HDL Ratio 4.71 Thyroid Stimulating Hormone 5.700 3rd Gen Blood Type AB NEGATIVE Antibody Screen NEGATIVE Crossmatch Leukocyte-Reduced Red Blood Cells Blood Bank Comment Imaging Last Impressions Chest CT 05/08/17 0000 Signed Impressions: Service Date/Time: Tuesday, May 09, 2017 05:26 - CONCLUSION: 1. Severe bilateral partially consolidative infiltrates involving all segments of both lungs, a new finding when compared to 2013. 2. 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 William Carrillo MD Physical Exam HEENT: Normocephalic; atraumatic; no jaundice. CHEST: Resp. even/unlabored CARDIAC: Irregular, rate 65 ABDOMEN: Soft, nondistended, nontender; no hepatosplenomegaly; bowel sounds are present in all four quadrants. EXTREMITIES: No clubbing, cyanosis, or edema. SKIN: Normal; no rash; no jaundice. PRINCIPAL QUALITY ENGINEER: No focal deficits; alert and oriented times three. Assessment and Plan Plan ASSESSMENT - Severe anemia with H/H of 3.8/10.7 on admission. Hemoccult (+) Stool. S/P 7 units PRBC, 2 units of platelets, 1 unit pooled platelets. HH 8.2/23.3, prior to unit of blood. 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 Peripheral blood smear with normochromic normocytic anemia and thrombocytopenia. S/P EGD/Colonoscopy (05/11/17)----> Esophagus normal, moderate erosive gastritis and duodenitis, duodenum otherwise normal, normal cecum, normal colon, sigmoid colon with severe diverticulosis , normal rectum. Pathology pending. PPI - Hemoccult (+) Stool. No GI symptoms. S/P EGD/Colonoscopy as above. - Erosive gastritis and duodenitis. Pathology pending. PPI. - Thrombocytopenia. Plt of 4 on admission, S/P PLT 4 on admission, s/p 2 units of platelets, 1 unit pooled platelets. Have been trending down, Plt 18 today. S/P bone marrow biopsy (05/09/17), pathology moderate hypocellular bone marrow with erythroid and megakaryocytic hypoplasia, stainable iron is present. Peripheral blood smear with normochromic normocytic anemia and thrombocytopenia. Hematology following. - Afib with RVR in 140's, now rate is controlled at 65. S/P Cardiology evaluation, started on amiodarone - Pulmonary edema, PNA. Chest CT (05/08/17)----> 1. Severe bilateral partially consolidative infiltrates involving all segments of both lungs, a new finding when compared to 2014. 2. 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 Improved. Doxycycline PLAN - Regular diet - Await pathology - PPI bid - Monitor HH - Transfusions per hematology - Supportive care - Pt seen and examined by Dr. Pretty and myself and this note is written on his behalf Michelle Murrieta May 12, 2017 15:31
[2017-05-12 19:15] LABS: HEMATOCRIT 25.9 % (35.0-46.0)
[2017-05-12 19:17] LABS: REVIEW FLAG FINAL
[2017-05-12 19:18] LABS: PLATELET COUNT 15 TH/MM3 (150-450)
[2017-05-13] VITALS (7 sets, daily range): BP systolic 121–139; BP diastolic 59–63; PULSE 63–66; RESP 18–19; TEMP 97.6–97.9; O2SAT 91–95
[2017-05-13] MEDS: LEVOTHYROXINE SODIUM 50 MCG TAB PO SCH (05:06)
[2017-05-13] MEDS: PANTOPRAZOLE SODIUM 40 MG VIAL IV PUSH SCH (07:48)
[2017-05-13] MEDS: AMIODARONE 200 MG TAB PO SCH (07:48)
--- NOTE | 2017-05-13 08:44 | MR ---
cc: FARAZ NINO,JAI Kelley JR., MD DATE: 05/11/2017 PROCEDURE 1. Esophagogastroduodenoscopy with biopsy. 2. Colonoscopy. INDICATION Severe anemia. DETAILS OF PROCEDURE After informed consent was obtained, the patient was placed in the left side down position. She was sedated by the Anesthesia service. After adequate sedation was achieved, the Pentax videoscope was inserted in the oropharynx and advanced through the esophagus, stomach and duodenum. It was then slowly withdrawn examining the mucosal surfaces carefully. Biopsies were obtained in the gastric antrum. The scope was retroflexed in the fundus and cardia. The scope was then straightened and pulled through the esophagus and the procedure was terminated. A colonoscopy was then performed. Digital rectal examination was normal. The Pentax videoscope was inserted in the anal canal and advanced through the colon reaching the base of the cecum. There was significant difficulty advancing the scope and she was turned first onto her right side and then back onto her left side to reach the cecum. Once the cecum was reached, the scope was then slowly withdrawn examining the mucosal surfaces carefully. No polypoid lesions or bleeding lesions were seen. A retroflex exam was performed in the rectum. The scope was then straightened and pulled through the anal canal. The procedure was terminated. She tolerated the procedures well and was returned to the recovery area in good condition. FINDINGS 1. The esophagus was normal. 2. In the stomach there was moderate erosive gastritis and also some duodenitis. 3. The duodenum was otherwise normal. 4. The cecum was normal. 5. The colon was normal. 6. In the sigmoid colon there was severe diverticulosis. 7. The rectum was normal. IMPRESSION 1. Erosive gastritis and duodenitis. 2. Severe diverticulosis. 3. No tumors or other significant bleeding lesions were seen. However, the erosive gastritis could certainly account for some anemia. RECOMMENDATIONS 1. The patient should take a proton pump inhibitor b.i.d. 2. Will await the biopsy result. 3. The patient should take Metamucil one tablespoon daily in a glass of water to help manage her diverticulosis. Jai Pretty MD [facility]/ /2:05 PM /8:33 AM
--- NOTE | 2017-05-13 09:33 | HHI.GIFU ---
Subjective Remarks Resting in bed. No obvious active bleeding. She is refusing any further lab work or transfusions and states that she is going to leave against medical advice. D/W patient that her platelets were very low yesterday and if she leaves, that she could have significant bleeding, and even possible . She states she understands this, but has made up her mind and will not have any further treatment at this facility. Objective Vitals I&O Vital Signs Date Time Temp Pulse Resp B/P Pulse Ox O2 Delivery O2 Flow Rate FiO2 05/13/17 08:58 95 Nasal Cannula 2.00 05/13/17 06:00 63 05/13/17 04:00 65 05/13/17 04:00 97.9 64 19 128/60 92 05/13/17 03:00 65 18 121/60 92 05/13/17 02:00 65 05/13/17 02:00 65 19 126/59 92 05/13/17 01:00 66 18 139/63 92 05/13/17 00:00 65 05/13/17 00:00 66 18 136/63 91 05/13/17 00:00 65 05/13/17 00:00 97.6 65 18 136/63 91 05/12/17 22:00 69 05/12/17 20:00 97.8 66 25 150/65 94 05/12/17 20:00 69 05/12/17 20:00 95 Nasal Cannula 2.00 05/12/17 19:56 93 Nasal Cannula 2.00 05/12/17 18:00 69 05/12/17 16:00 65 05/12/17 16:00 97.8 65 25 138/66 94 05/12/17 15:00 66 25 121/55 94 05/12/17 14:00 69 20 113/55 93 05/12/17 13:00 70 28 153/67 91 05/12/17 12:00 66 05/12/17 12:00 98.2 66 24 98/53 91 05/12/17 11:00 68 30 126/61 94 05/12/17 10:15 70 25 112/57 89 05/12/17 10:00 66 05/12/17 10:00 66 26 104/58 92 I/O 05/12/17 05/12/17 05/12/17 05/13/17 05/13/1705/13/17 07:00 15:00 23:00 07:00 15:00 23:00 Intake Total 237 ml 1334 ml Balance 237 ml 1334 ml Intake Oral 500 ml IV Total 237 ml 334 ml Packed Cells 250 ml Platelets 250 ml # Voids 0 2 1 # Bowel Movements 0 1 1 Laboratory Laboratory Tests Test 05/12/17 05/12/17 05/12/17 05/12/17 11:02 12:20 13:10 19:00 Sodium Level 141 Potassium Level 3.8 Chloride Level 108 Carbon Dioxide Level 27.4 Anion Gap 6 Blood Urea Nitrogen 17 Creatinine 0.61 Estimat Glomerular Filtration 94 Rate Random Glucose 111 Calcium Level 8.6 Triglycerides Level 138 Cholesterol Level 140 LDL Cholesterol 83 HDL Cholesterol 29.7 Cholesterol/HDL Ratio 4.71 Thyroid Stimulating Hormone 5.700 3rd Gen Blood Type AB NEGATIVE Antibody Screen NEGATIVE Crossmatch Leukocyte-Reduced Red Blood Cells Blood Bank Comment White Blood Count 3.5 Red Blood Count 2.71 Hemoglobin 8.2 8.7 Hematocrit 23.3 25.9 Mean Corpuscular Volume 85.9 Mean Corpuscular Hemoglobin 30.1 Mean Corpuscular Hemoglobin 35.0 Concent Red Cell Distribution Width 15.1 Platelet Count 18 15 Mean Platelet Volume 7.5 Imaging Last Impressions Chest X-Ray 05/12/17 0000 Signed Impressions: Service Date/Time: April 12:45 - CONCLUSION: 1. Mild diffuse increased interstitial markings consistent with pulmonary vascular congestion versus pneumonia. Clinical correlation is recommended. 2. Degenerative changes and scoliosis of the thoracolumbar spine. Vaibhav Mendes MD Chest CT 05/08/17 0000 Signed Impressions: Service Date/Time: Tuesday, May 09, 2017 05:26 - CONCLUSION: 1. Severe bilateral partially consolidative infiltrates involving all segments of both lungs, a new finding when compared to 2013. 2. 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 William Carrillo MD Physical Exam HEENT: Normocephalic; atraumatic; no jaundice. CHEST: Resp. even/unlabored CARDIAC: Irregular, rate controlled ABDOMEN: Soft, nondistended, nontender; no hepatosplenomegaly; bowel sounds are present in all four quadrants. EXTREMITIES: RUE edematous SKIN: Ecchymosis SHIFT SUPERINTENDENT: No focal deficits; alert and oriented times three. Assessment and Plan Plan ASSESSMENT - Severe anemia with H/H of 3.8/10.7 on admission. Hemoccult (+) Stool. S/P 7 units PRBC, 2 units of platelets, 1 unit pooled platelets. HH 8.2/23.3, prior to unit of blood. 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 Peripheral blood smear with normochromic normocytic anemia and thrombocytopenia. S/P EGD/Colonoscopy (05/11/17)----> Esophagus normal, moderate erosive gastritis and duodenitis, duodenum otherwise normal, normal cecum, normal colon, sigmoid colon with severe diverticulosis , normal rectum. Pathology pending. PPI. No labs from today, patient refusing further blood work/transfusions/treatment. States she will leave AMA. - Hemoccult (+) Stool. No GI symptoms. S/P EGD/Colonoscopy as above. - Erosive gastritis and duodenitis. Pathology pending. PPI. - Thrombocytopenia. Plt of 4 on admission, S/P PLT 4 on admission, s/p 2 units of platelets, 1 unit pooled platelets. Have been trending down, Plt 18 today. S/P bone marrow biopsy (05/09/17), pathology moderate hypocellular bone marrow with erythroid and megakaryocytic hypoplasia, stainable iron is present. Peripheral blood smear with normochromic normocytic anemia and thrombocytopenia. Hematology following. - Afib with RVR in 140's, now rate is controlled at 65. S/P Cardiology evaluation, started on amiodarone - Pulmonary edema, PNA. Chest CT (05/08/17)----> 1. Severe bilateral partially consolidative infiltrates involving all segments of both lungs, a new finding when compared to 2013. 2. 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 Improved. Doxycycline PLAN - Regular diet - Await pathology - PPI bid - Monitor HH - Transfusions per hematology - Pt refusing further evaluation and treatment and is leaving AMA - GI will sign off, please reconsult as needed - Pt seen and examined by Dr. Pretty and myself and this note is written on his behalf Michelle Murrieta May 13, 2017 09:33
--- NOTE | 2017-05-13 10:06 | MB ---
cc: CLAUDIO PRATER DATE OF CONSULTATION 05/12/[address] Greg Cid REASON FOR CONSULTATION Evaluation for lung disease. HISTORY OF PRESENT ILLNESS Ms. Vargas is a pleasant 82 year old female with a history of pulmonary embolism and lung nodule in the past. The patient came to the hospital with weakness which has been getting worse. She says she has been having weakness for the last three months or so, but it was getting much worse. She woke up in the night with dry mouth and could not even get up. She was feeling bad. She came to the emergency room. She had evaluation done. Her hemoglobin was hemoglobin 3.8, hematocrit 10.7. The patient had a blood transfusion done. Her last hemoglobin 8.2, hematocrit 23.3, platelet count today was low at 18 and she had a platelet transfusion done today. She had a CT scan of the chest done which shows severe bilateral partial consolidative infiltrate involving multisegment of both lungs. Repeat chest x-ray today shows mild diffuse increased interstitial infiltrates. CBC showed WBC count 3.5, hemoglobin 8.2, hematocrit 23.3, MCV 85. Platelet count 18. INR is 1.0. Sodium is 141, potassium 3.8, chloride 108, CO2 27, BUN 17, creatinine 0.61. PAST MEDICAL HISTORY 1. Pulmonary embolism. 2. Gastroesophageal reflux disease 3. Hyperlipidemia 4. Lung nodules 5. Bunion surgery 6. History of cataract surgery. 7. History of recurrent paroxysmal atrial fibrillation MEDICATIONS She is currently taking 2. Levothyroxine 50 mcg a day 4. Protonix 40 mg a day. 5. Albuterol/Atrovent nebulizer treatment. ALLERGIES NO KNOWN DRUG ALLERGIES. SOCIAL HISTORY She is a and lives alone. She has a history of smoking 3-5 cigarettes a day most of her life, drinks occasionally. FAMILY HISTORY She has two children . REVIEW OF SYSTEMS Denies any weight loss, feels weak, has fatigue. No headache or dizziness, no known malignancy. PHYSICAL EXAMINATION GENERAL: Elderly female not in acute distress. Anxious to go home. Her son is at the bedside. VITAL SIGNS: Blood pressure 134/66, heart rate 65, respirations 20, temperature 97.8, heart rate 65 HEENT: Pupils are equal and reactive to light. She had bilateral cataract surgery done. Oral mucosa, nasal mucosa normal. NECK: Supple. JVP not raised. CHEST: Equal bilaterally. She has bibasilar rales. CARDIOVASCULAR: S1, S2 normal. ABDOMEN: Soft, nondistended. Bowel sounds are present EXTREMITIES: No edema. IMPRESSION 1. Bibasilar lung infiltrate, possible fluid overload. Lung infiltrate seems to be improving. 2. Leukopenia 3. Thrombocytopenia 4. History of pulmonary embolism. 5. Lung nodule 6. Paroxysmal atrial fibrillation. PLAN I will repeat her chest x-ray in the morning. Supplement her oxygen then we will evaluate for home oxygen therapy. She is on amiodarone. Continue doxycycline. Monitor her platelet count and CBC. Further treatment will depend on the course in the hospital. I discussed the patient's condition with the patient and her son at the bedside. Thank you Dr. Greg Cid for this consultation. MD SARITHA Eddy/ /5:50 PM /9:45 AM CHAIM
--- NOTE | 2017-05-13 10:30 | PD.AMA ---
Against Medical Advice Note Discharge Disposition: Against Medical Advice Pt Condition on Discharge: Guarded Recommended Treatment Course Repeat CBC and transfuse platelets or red cells as needed. Pulmonology consult for pneumonia, continue antibiotics. Set-up home oxygen. The pt understood the risks of leaving and had capacity to make the decision to leave against medical advice. AMA Statement Patient Mariza Vargas has decided to leave the hospital against medical advice. This patient has the capacity to refuse care and understands the risks of leaving, including permanent disability and/or , and has had an opportunity to ask questions about her condition. The patient has been informed that she may return for care at any time, and follow up has been arranged/ advised. Greg Cid DO May 13, 2017 10:29
--- NOTE | 2017-05-13 10:35 | HHI.DS ---
Discharge Summary Admission Date May 08, 2017 at 04:39 Discharge Date: May 13, 2017 Admitting Diagnosis Severe anemia, thrombocytopenia (1) Pancytopenia ICD Code: D61.818 Diagnosis: Principal (2) Pneumonia ICD Code: J18.9 Diagnosis: Principal (3) Hypoxemia ICD Code: R09.02 (4) Elevated troponin I level ICD Code: R74.8 Diagnosis: Principal (5) Paroxysmal atrial fibrillation ICD Code: I48.0 Procedures Bone marrow biopsy EGD/ Colonoscopy Brief History - From Admission 82 y/o previously active woman presents with fatigue. Feels like legs weigh large amount, heavy. Hgb 3.8 and stool occult blood positive. EKG with ST-T depression. Normotensive. No chest pain. Platelet count 4 total. Excessive bruising for months now. Only change is that thyroid med was recently increased. CBC/BMP: 05/12/17 1900 05/12/17 1102 Significant Findings Laboratory Tests Test 05/11/17 05/11/17 05/12/17 05/12/17 05:12 20:09 11:02 12:20 Red Blood Count 2.96 MIL/MM3 2.82 MIL/MM3 2.71 MIL/MM3 (4.00-5.30) (4.00-5.30) (4.00-5.30) Hemoglobin 8.7 GM/DL 8.3 GM/DL 8.2 GM/DL (11.6-15.3) (11.6-15.3) (11.6-15.3) Hematocrit 25.0 % 24.2 % 23.3 % (35.0-46.0) (35.0-46.0) (35.0-46.0) Platelet Count 32 TH/MM3 25 TH/MM3 18 TH/MM3 (150-450) (150-450) (150-450) Potassium Level 3.0 MEQ/L (3.5-5.1) Calcium Level 8.1 MG/DL 8.4 MG/DL (8.5-10.1) (8.5-10.1) White Blood Count 3.8 TH/MM3 3.5 TH/MM3 (4.0-11.0) (4.0-11.0) Random Glucose 113 MG/DL 111 MG/DL (74-106) (74-106) Chloride Level 108 MEQ/L (98-107) HDL Cholesterol 29.7 MG/DL (40.0-60.0) Thyroid Stimulating Hormone 5.700 uIU/ML 3rd Gen (0.358-3.740) Test 05/12/17 19:00 Hemoglobin 8.7 GM/DL (11.6-15.3) Hematocrit 25.9 % (35.0-46.0) Platelet Count 15 TH/MM3 (150-450) Imaging Last Impressions Chest X-Ray 05/12/17 0000 Signed Impressions: Service Date/Time: April 12:45 - CONCLUSION: 1. Mild diffuse increased interstitial markings consistent with pulmonary vascular congestion versus pneumonia. Clinical correlation is recommended. 2. Degenerative changes and scoliosis of the thoracolumbar spine. Vaibhav Mendes MD Chest CT 05/08/17 0000 Signed Impressions: Service Date/Time: Tuesday, May 09, 2017 05:26 - CONCLUSION: 1. Severe bilateral partially consolidative infiltrates involving all segments of both lungs, a new finding when compared to 2013. 2. 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 William Carrillo MD PE at Discharge Gen: NAD, resting comfortably. Head: Normal. Neck: Supple. Lungs: Bilateral wheezing and crackles noted Heart: Regular rate and rhythm Abdomen: Soft, no guarding or tenderness. Extremities: Warm, well perfused. Neuro: O X 3, alert, cooperative. Moves 4 limbs to command. Speech clear. Psych: Slightly agitated. Pt update on day of discharge The patient did not want to stay in the hospital. She said her arm was swollen more the platelets were transfused. She said that she did not want any further blood tests or treatment. She wanted to leave the hospital AGAINST MEDICAL ADVICE. Discussed with nursing. Hospital Course Pancytopenia GI and oncology were consulted. S/p multiple transfusions of red cells and platelets. Bone marrow biopsy revealed a hypocellular marrow. EGD/ colonoscopy per GI with erosive gastritis and diverticulosis. She received a PPI BID. Her platelet count decreased and another unit of platelets were ordered. The unit of platelets infiltrated and the pt had a swollen arm. She did not want any further transfusions or lab work. She demanded to leave the hospital against medical advice. She understood the risks of leaving the hospital at this time and was willing to leave despite the risks. Type II demand ischemia/ Elevated Troponins/ A fib Cardiology was consulted. She converted to normal sinus rhythm on an amiodarone drip. She was continued on PO amiodarone. She was monitored on telemetry. ASA on hold for anemia. Pulmonary edema/ PNA S/p NRB. Doing well on nasal cannula. 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 She requires home oxygen per the walk test. Pulmonology was consulted. She received oxygen and nebs as needed. She was started on doxycycline IV to cover for CAP. She received incentive spirometry. Pt Condition on Discharge: Guarded Discharge Disposition: Discharge Home Discharge Time: > 30 minutes Discharge Instructions DIET: Follow Instructions for: Heart Healthy Diet Follow up Referrals: Gastroenterology - 2 Weeks with Jai Pretty MD Oncology - [address] Marie PCP Follow-up - 1 Week New Orders: CBC WITH DIFF - 2-3 Days New Medications: Albuterol 18 GM Inh (Ventolin Hfa 18 GM Inh) 90 Mcg/Act Aer 2 PUFF INH Q4H PRN SHORTNESS OF BREATH #1 Ref 0 INHALER Doxycycline Hyclate (Doxycycline Hyclate) 100 Mg Cap 100 MG PO BID Infection #10 Ref 0 CAP Pantoprazole (Pantoprazole) 40 Mg Tab 40 MG PO BID Reflux #60 Ref 0 TAB Amiodarone (Amiodarone) 200 Mg Tab 200 MG PO DAILY A fib #30 TAB Continued Medications: Alendronate (Fosamax) 70 Mg Tab 70 MG PO Q7D Osteoporosis Treatment #4 Ref 0 TAB Digoxin (Digoxin) 0.125 Mg Tab 0.125 MG PO DAILY Regulate Heart Beat #30 Ref 0 TAB Levothyroxine (Levothyroxine) 50 Mcg Tab 50 MCG PO DAILY Thyroid #30 Ref 0 TAB Pravastatin (Pravastatin) 10 Mg Tab 10 MG PO DAILY Cholesterol Management #30 Ref 0 TAB Discontinued Medications: Aspirin (Aspirin) 325 Mg Tab 325 MG PO DAILY #30 Ref 0 TAB Naproxen Sodium (Aleve) 220 Mg Capsule 220 MG PO DAILY Greg Cid DO May 13, 2017 10:35 325 MG PO DAILY #30 Ref 0 TAB Naproxen Sodium (Aleve) 220 Mg Capsule 220 MG PO DAILY Greg Cid DO May 13, 2017 10:35
== END 2017-05-13 09:45 | disposition left against medical advice (07) | DRG 808 ==
LOC: NEPE 01:40 → NEDA 04:39 → N03B 07:47 → HOCA 05-09 18:27 → HIMN 05-10 14:45
PROVIDERS: ADMIT Hospitalist; ATTEND Hospitalist
PROC: 07DR3ZX Extraction of Iliac Bone Marrow, Percutaneous Approach, Diagnostic (ICD-10-PCS; 2017-05-09)
PROC: 30233R1 Transfusion of Nonautologous Platelets into Peripheral Vein, Percutaneous Approach (ICD-10-PCS; 2017-05-09)
PROC: 30233N1 Transfusion of Nonautologous Red Blood Cells into Peripheral Vein, Percutaneous Approach (ICD-10-PCS; 2017-05-09)
PROC: 0DB68ZX Excision of Stomach, Via Natural or Artificial Opening Endoscopic, Diagnostic (ICD-10-PCS; principal; 2017-05-11 12:20)
PROC: 0DJD8ZZ Inspection of Lower Intestinal Tract, Via Natural or Artificial Opening Endoscopic (ICD-10-PCS; 2017-05-11 12:20)
DX: D61.818 Other pancytopenia (principal); J18.9 Pneumonia, unspecified organism; I48.0 Paroxysmal atrial fibrillation; I24.8 Other forms of acute ischemic heart disease; E87.71 Transfusion associated circulatory overload; D62 Acute posthemorrhagic anemia; L40.9 Psoriasis, unspecified; R09.02 Hypoxemia; M81.0 Age-related osteoporosis without current pathological fracture; K29.70 Gastritis, unspecified, without bleeding; K29.80 Duodenitis without bleeding; K57.30 Diverticulosis of large intestine without perforation or abscess without bleeding; E78.00 Pure hypercholesterolemia, unspecified; E03.9 Hypothyroidism, unspecified; F17.210 Nicotine dependence, cigarettes, uncomplicated; E78.5 Hyperlipidemia, unspecified; K21.9 Gastro-esophageal reflux disease without esophagitis; Z86.711 Personal history of pulmonary embolism
CPT/HCPCS: 36430; 71010; 71250; 76937; 80048; 80061; 80076; 82728; 82784; 83010; 83540; 83550; 83615; 83735; 84165; 84443; 84484; 85014; 85018; 85025; 85027; 85044; 85049; 85097; 85610; 85730; 86747; 86850; 86900; 86901; 86920; 87641; 88184; 88185; 88237; 88264; 88305; 88311; 88312; 88313; 93005; 93306; 94150; 94620; 94640; 94664; 96374; 96376; C9113; G0364; J0282; J1610; J1940; J2270; J3480; J7030; J7050; J7060; P9016; P9031; P9035

== ENCOUNTER 2017-05-16 20:59 | Inpatient (IN) | payer MEDICARE, BC ==
[~2017-05-16] VITALS: Ht 170.2 cm; Wt 65.6 kg
[~2017-05-16 20:59] MED LIST changes: -ALL220TA PO; +AMIO200T PO; -ASPI81TA45 PO; -CITRTAB7 PO; +DIGO0.12 PO; +DOXY100C PO; +LEVO50TA4 PO; +PANT40TA3 PO; +PRAV10TA PO; -PRAV20 PO; -TAB-TAB PO; +VENTAER INH
[2017-05-18] VITALS (14 sets, daily range): BP systolic 97–130; BP diastolic 50–62; PULSE 64–70; RESP 15–22; TEMP 97–100.4; O2SAT 93–98
[2017-05-18] MEDS ORDERED: NALOXONE HCL 0.4 MG/ML AMP IV PRN (10:15)
[2017-05-18] MEDS ORDERED: SODIUM CHLORIDE 0.9% FLUSH 10 ML FLUSH IV FLUSH PRN (10:15)
[2017-05-18] MEDS ORDERED: MAGNESIUM HYDROXIDE SUSP 30 ML CUP PO PRN (10:15)
[2017-05-18] MEDS ORDERED: SENNOSIDES 8.6 MG TAB PO PRN (10:15)
[2017-05-18] MEDS ORDERED: ALBUTEROL SULFATE 90 MCG/ACT HFA 18 GM INHALER INH PRN (10:15)
[2017-05-18] MEDS ORDERED: LACTULOSE SYRUP 20 GM/30 ML CUP PO PRN (10:15)
[2017-05-18] MEDS ORDERED: BISACODYL 10 MG SUPP RECTAL PRN (10:15)
--- NOTE | 2017-05-18 12:35 | HHI.HP ---
[facility] Roe Chairez MD Admission Diagnosis Diagnoses: Travel History International Travel<30 Days: No Contact w/Intl Traveler <30 Da: No History of Present Illness This is a 52-year-old female who recently had diagnosis of aplastic anemia made. She's been complaining of progressive generalized weakness. Shortness of breath on minimal exertion. Very easy bruising. She is now being admitted for the management of the above. Her platelet count was found yesterday to be 2. She was seen by the undersigned in room 711 in the presence of her daughter. She is alert and oriented. She is complaining of the above. She her daughter are frustrated with her present condition. The patient recently had the diagnosis of atrial fibrillation made and she was started on amiodarone. Clearly with her thrombocytopenia and aplastic anemia she was not considered to be a good candidate for anticoagulation. She was recently evaluated by cardiology. She went home AGAINST MEDICAL ADVICE last week. The reason is unclear. Of note that the patient was recommended to be on telemetry especially with her recent diagnosis of atrial fibrillation at which point she expressed her dislike of the idea of telemetry monitoring. Review of Systems Other as detailed above, 10 systems reviewed otherwise negative Past Family Social History Past Medical History Aplastic anemia Hyperlipidemia Atrial fibrillation Hypothyroidism Gastric erosion Severe diverticulosis Past Surgical History Left total knee replacement Right total hip replacement Allergies: Coded Allergies: No Known Allergies (Verified , 05/08/17) Family History Reviewed but not contributory Social History she is a former smoker, no current smoking, no excessive alcohol or illicit use Physical Exam Vital Signs Vital Signs Date Time Temp Pulse Resp B/P Pulse Ox O2 Delivery O2 Flow Rate FiO2 05/18/17 12:27 97.0 69 21 127/60 95 05/18/17 09:45 97.6 70 21 103/57 94 Physical Exam GENERAL: This is a well-nourished, ill-looking, pale, well-developed patient, anxious but otherwise in no apparent distress. SKIN: Extensive ecchymoses. Skin Cool and dry. She does have what appears to be ecchymosis versus cold sore over her right upper lip HEAD: Atraumatic. Normocephalic. No temporal or scalp tenderness. EYES: Pupils equal round and reactive. Extraocular motions intact. No scleral icterus. No injection or drainage. ENT: Nose without bleeding, purulent drainage or septal hematoma. Throat without erythema, tonsillar hypertrophy or exudate. Uvula midline. Airway patent. NECK: Trachea midline. No JVD or lymphadenopathy. Supple, nontender, no meningeal signs. CARDIOVASCULAR: Regular rate and rhythm without murmurs, gallops, or rubs. RESPIRATORY: Clear to auscultation. Breath sounds equal bilaterally. No wheezes , rales, or rhonchi. GASTROINTESTINAL: Abdomen soft, non-tender, nondistended. No hepato-splenomegaly , or palpable masses. No guarding. MUSCULOSKELETAL: Extremities without clubbing, cyanosis, or edema. No joint tenderness, effusion, or edema noted. No calf tenderness. Negative Homans sign bilaterally. NEUROLOGICAL: Awake and alert. Cranial nerves II through XII intact. Normal speech. Laboratory Laboratory Tests Test 05/18/17 05/18/17 12:42 18:00 Blood Bank Comment White Blood Count 2.5 TH/MM3 Red Blood Count 2.13 MIL/MM3 Hemoglobin 6.2 GM/DL Hematocrit 18.6 % Mean Corpuscular Volume 87.6 FL Mean Corpuscular Hemoglobin 29.1 PG Mean Corpuscular Hemoglobin 33.2 % Concent Red Cell Distribution Width 14.4 % Platelet Count 23 TH/MM3 Mean Platelet Volume 7.8 FL Neutrophils (%) (Auto) % Lymphocytes (%) (Auto) % Monocytes (%) (Auto) % Eosinophils (%) (Auto) % Basophils (%) (Auto) % Neutrophils # (Auto) TH/MM3 Lymphocytes # (Auto) TH/MM3 Monocytes # (Auto) TH/MM3 Eosinophils # (Auto) TH/MM3 Basophils # (Auto) TH/MM3 CBC Comment AUTO DIFF Differential Total Cells 100 Counted Neutrophils % (Manual) 2 % Lymphocytes % 97 % Monocytes % 1 % Neutrophils # (Manual) 0.1 TH/MM3 Differential Comment FINAL DIFF MANUAL Atypical Lymphocytes % Platelet Estimate LOW Platelet Morphology Comment NORMAL Red Cell Morphology Comment Sodium Level 138 MEQ/L Potassium Level 3.8 MEQ/L Chloride Level 105 MEQ/L Carbon Dioxide Level 26.3 MEQ/L Anion Gap 7 MEQ/L Blood Urea Nitrogen 19 MG/DL Creatinine 0.72 MG/DL Estimat Glomerular Filtration 78 ML/MIN Rate Random Glucose 138 MG/DL Calcium Level 8.7 MG/DL Imaging Last 24 hours Impressions Bone Biopsy CT 05/18/17 7573 Signed Impressions: Service Date/Time: Thursday, May 18, 2017 15:21 - CONCLUSION: 1. Uncomplicated CT guided bone marrow aspirate. 2. Uncomplicated CT guided bone marrow biopsy. Robert Cruz MD FACR Assessment and Plan Assessment and Plan Assessment Symptomatic anemia Severe profound symptomatic thrombocytopenia Uncontrolled aplastic anemia Recent diagnosis of atrial fibrillation Recent diagnosis of gastric erosions Management The patient is to continue home medications Telemetry ordered Case discussed with surface room shop optician Dr. Real Bone marrow biopsy is needed It has already been done today The patient needs to be started soon on chemotherapy Platelet transfusion is also ordered Follow complete blood count Follow electrolytes and replace as needed Continue proton pump inhibitor Discussed with patient and her daughter Discussed with nurse 40 minutes spent Discussed With: Nurse, Family Elan Espinoza MD May 18, 2017 12:35
[2017-05-18] MEDS ORDERED: LIDOCAINE 1%/EPINEPHrine 1:100,000 SOLN 20 ML VIAL ONE (14:47)
[2017-05-18] MEDS ORDERED: LIDOCAINE HCL 1% 20 ML VIAL ONE (14:47)
[2017-05-18] MEDS ORDERED: BUPIVACAINE HCL PF 0.75% 10 ML VIAL ONE (15:27)
[2017-05-18 16:04] LABS: BONE MARROW PROCESSING COMPLETE; IRON STAIN DONE; JENNER GIEMSA STAIN DONE
--- NOTE | 2017-05-18 16:05 | RADRPT ---
EXAM DATE/TIME: 05/18/2017 15:21 [place] COMPARISON: No previous studies available for comparison. INDICATIONS : Aplastic anemia BIOPSY SITE: Right ilium MEDICATION(S): 1.) 50 mcg fentanyl (Sublimaze) IV DEVICE(S): 1.) 12 gauge On-Control needle MEDICAL HISTORY : None. SURGICAL HISTORY : None. ENCOUNTER: Initial ACUITY: 1 day PAIN SCORE: 0/10 LOCATION: [facility] A total of one core specimen(s) were obtained and sent to the laboratory for pathologic evaluation. PROCEDURE: 1. CT guided bone marrow biopsy. Prior to the procedure informed consent was obtained. Any appropriate prior imaging studies were rev iewed. Using automated exposure control and adjustment of the mA and/or kV according to patient size , radiation dose was kept as low as reasonably achievable to obtain optimal diagnostic quality images . DICOM format image data is available electronically for review and comparison. The site was prepped in a sterile fashion. Full sterile technique was used, including cap, mask, stefania rile gloves and gown and a large sterile sheet. Hand hygiene and 2% chlorhexidine and/or betadine/al cohol prep was utilized per protocol for cutaneous antisepsis. The skin and subcutaneous tissues wer e infiltrated with local anesthetic solution. With CT guidance the previously identified target was localized. Biopsy was performed using the presc ribed needle as above. Following biopsy marrow aspiration was performed with repeat puncture. Adequa te hemostasis was obtained with compression at the puncture site. Follow-up CT scan reveals no hemorrhage. Conscious sedation was performed with the prescribed dosages and duration as above in the presence of an independent trained radiology nurse to assist in the monitoring of the patient. EKG and oximetry remained stable throughout the procedure. The patient tolerated the procedure well and there were no complications. The patient was sent to Radiology Outpatient Unit in stable condition. CONCLUSION: 1. Uncomplicated CT guided bone marrow aspirate. 2. Uncomplicated CT guided bone marrow biopsy. Robert Cruz MD FACR on May 18, 2017 at 16:02 Board Certified Radiologist. This report was verified electronically.
[2017-05-18 18:12] LABS: MEAN CELL VOLUME 87.6 FL (80.0-100.0); MEAN CORPUSCULAR HEMOGLOBIN 29.1 PG (27.0-34.0); MEAN CORPUSCULAR HGB CONC 33.2 % (32.0-36.0); PLATELET COUNT 23 TH/MM3 (150-450); RED BLOOD COUNT 2.13 MIL/MM3 (4.00-5.30); RED CELL DISTRIBUTION WIDTH 14.4 % (11.6-17.2); WHITE BLOOD COUNT 2.5 TH/MM3 (4.0-11.0)
[2017-05-18 18:25] LABS: HEMO FLAGS AUTO DIFF
[2017-05-18 18:26] LABS: HEMATOCRIT 18.6 % (35.0-46.0)
[2017-05-18 18:35] LABS: BICARBONATE 26.3 MEQ/L (21.0-32.0); POTASSIUM 3.8 MEQ/L (3.5-5.1)
[2017-05-18 19:22] LABS: WBC DIFF SAMPLE 100
[2017-05-18 19:25] LABS: NEUTROPHIL # MANUAL DIFF 0.1 TH/MM3 (1.8-7.7); POLYS (SEG NEUTROPHILS) 2 % (16-70)
[2017-05-18 19:27] LABS: PLATELET ESTIMATE SMEAR LOW (NORMAL); PLATELET MORPHOLOGY NORMAL (NORMAL); SCAN/DIFF FINAL DIFF MANUAL
--- NOTE | 2017-05-18 20:25 | MB ---
cc: ELAN KESSLER MD, RUBY ANNE E. M.D. DATE OF CONSULTATION 05/18/2017 Oncology new patient consultative summary DATE OF [address] Elan Kessler CHIEF COMPLAINT Dr. Kessler requested consultation for Mrs. 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 HISTORY OF PRESENT ILLNESS Mrs. Vargas is an 82-year-old woman with history of arthritis, hypercholesterolemia, psoriasis, previously active, presents with fatigue. She was found to have a hemoglobin of 3.8 and a platelet count 4000. She had heme-positive stools and bruising. She was admitted to hospital on 05/08/2017. She was seen in consultation on 05/09/2017. Bone marrow failure syndrome was considered. Bone marrow biopsy was performed May 09, 2017. The final pathology showed a hypocellular marrow with cellularity of 15-20%. Flow cytometric analysis was negative. Cytogenetics is still pending. 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 She had extensive GI evaluation, because of her heme positive stools. It was not clear if the bleeding caused the cytopenia versus the cytopenia caused the GI bleed, particularly the significant and severe thrombocytopenia. She initially responded to platelet transfusions. Her last platelet transfusion was complicated by extravasation and this prompted her to leave the hospital AMA. She was seen in the outpatient clinic on Tuesday May 16, 2017. She allowed us to do a CBC which came back with pancytopenia, white blood cell count of 2.9, hemoglobin 8.4, platelet count of 2000. ANC is 100. She was afebrile but was having bruising, petechia and recurrent epistaxis. She was agreeable to receive 1 unit of single donor platelets. Admission was deferred and coordinated with Dr. Kessler on May 18, 2017 after the holiday. She is presumed to have worsening cytopenias. She is still has bruising. The infiltration of the platelets in the right arm is improved. She is however very disappointed in the peripheral access team and declined the peripheral access and would only accept a PICC line from the interventional radiologist. She is suspected to have a diagnosis of aplastic anemia with the development of the significant cytopenias. We discussed the need for admission and for treatment with ATG and cyclosporin for treatment. This was coordinated through Dr. Kessler. Hematology/Oncology is consulted to coordinate treatment of the acquired aplastic anemia. Review of the electronic medical record showed a very normal CBC in October of 2016. The rest of her review of systems is negative. She denies any gum bleeding. Epistaxis has resolved. PAST MEDICAL HISTORY 1. Hypothyroidism. 2. Psoriasis. 3. Arthritis. 4. Chronic tobacco use. 5. History of pulmonary embolism. 6. Pulmonary nodule. 7. Anterior mediastinal mass. PAST SURGICAL HISTORY 1. Left knee replacement. 2. Right hip replacement. 3. Left posterior iliac crest bone marrow biopsy. 4. Right cataract surgery. 5. Oral surgery. SOCIAL HISTORY She drinks alcohol occasionally. Denies any illicit drug use. She was an active smoker. FAMILY HISTORY Both parents of old age in their 90s. ALLERGIES NO KNOWN DRUG ALLERGIES. CURRENT MEDICATIONS 1. Cordarone. 2. Lanoxin. 3. Pravachol. 4. Synthroid. 5. Rosalinda-Colace. 6. Doxycycline. 7. Protonix. PHYSICAL EXAMINATION VITAL SIGNS: Temperature 97.6, heart rate 67, respiratory rate 22, blood pressure 130/62, saturation 97%. GENERAL: Mrs. Vargas is a well-developed, well-nourished woman, elderly, looks her stated age. She has a scab over the right upper lip. She has extensive petechiae of lower extremity, bruising in the left antecubital area where her IV site was right forearm with induration which is improved from two days ago. She has no epistaxis. There is dry clot soft purpura is noted. LUNGS: Clear to auscultation. CARDIOVASCULAR: Exam reveals a rate-controlled rhythm. ABDOMEN: Benign. EXTREMITIES: Lower extremity with no edema. NEUROLOGIC: Exam is nonfocal. LABORATORY DATA Labs from 05/16/2017 white blood cell count 2.9, hemoglobin 8.4, platelet count of 2000. ASSESSMENT/PLAN Mrs. Vargas is an 82-year-old woman with multiple medical problems. 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 For this we will coordinate repeat bone marrow biopsy. I suspect that the 15-20% cellularity is a sampling issue. Flow cytometry is negative. Cytogenetics is still pending. If the bone marrow is consistent with aplastic anemia or hypoplastic myelodysplastic syndrome we discussed the risks and benefits of immunosuppression with ATG and cyclosporin. We discussed common toxicity associated with these medications and the support that she will need. We discussed a clinical trial showing that the addition of eltrombopag has been helpful with the platelet recovery. This is an oral agent that we will get approved on an outpatient basis. It would not be available during inpatient stay. Laboratory evaluation including a CBC, CMP will be obtained. She will be transfused for symptomatic anemia and thrombocytopenia. We can consider getting HLA type platelets. Platelets were ordered for bone marrow biopsy procedure. It is not likely that she was going to need platelets for a PICC line. We discussed the risk and benefit of PICC line placement. We discussed the difficulty in considering a port placement in light of her cytopenias at present, particularly she is also neutropenic. Neutropenic precaution is taken. She is fortunately afebrile. Treatment will commence as soon as a bone marrow biopsy is reviewed by our pathology. Supportive treatment continues. She is going to be given information on ATG and cyclosporin. Workup cardiology ibrahim is coordinated by Dr. Kessler including her heart murmur. Her course was complicated by atrial fibrillation. She is unable to tolerate an aspirin in light of her bleeding associated with significant thrombocytopenia which is unlikely to recover. Amicar is continued to enhance the effect of the platelets. It prevents and decreases the bleeding from mucosal areas. Her and her daughter's questions were answered to their satisfaction. MD MIGUE Byrd/REBEL /5:08 PM /8:06 PM
[2017-05-18] MEDS ORDERED: diphenhydrAMINE HCL 25 MG CAP PO PRN (20:45)
[2017-05-18] MEDS ORDERED: ACETAMINOPHEN 325 MG TAB PO PRN (20:45)
[2017-05-18] MEDS: DOCUSATE SODIUM 50 MG/SENNA 8.6 MG TAB PO SCH (21:00)
[2017-05-18] MEDS: DOXYCYCLINE HYCLATE 100 MG CAP PO SCH (21:00)
[2017-05-18] MEDS: SODIUM CHLORIDE 0.9% FLUSH 10 ML FLUSH IV FLUSH SCH (21:00)
[2017-05-18] MEDS: PANTOPRAZOLE SOD 40 MG DELAYED RELEASE TAB PO SCH (21:00)
[2017-05-19] VITALS (11 sets, daily range): BP systolic 85–119; BP diastolic 44–58; PULSE 54–71; RESP 16–18; TEMP 96.9–100.3; O2SAT 94–98
[2017-05-19] MEDS: diphenhydrAMINE HCL 25 MG CAP PO PRN (02:07)
[2017-05-19] MEDS: ACETAMINOPHEN 325 MG TAB PO PRN (02:08)
[2017-05-19] MEDS: LEVOTHYROXINE SODIUM 50 MCG TAB PO SCH (04:55)
[2017-05-19 08:46] LABS: LYMPH % 99.2 % (9.0-44.0); LYMPHOCYTE # 3.6 TH/MM3 (1.0-4.8); MEAN CELL VOLUME 89.2 FL (80.0-100.0); MEAN CORPUSCULAR HEMOGLOBIN 29.6 PG (27.0-34.0); MEAN CORPUSCULAR HGB CONC 33.2 % (32.0-36.0); MONO % 0.4 % (0.0-8.0); NEUT % 0.4 % (16.0-70.0); PLATELET COUNT 21 TH/MM3 (150-450); RED BLOOD COUNT 3.03 MIL/MM3 (4.00-5.30); RED CELL DISTRIBUTION WIDTH 14.3 % (11.6-17.2); WHITE BLOOD COUNT 3.6 TH/MM3 (4.0-11.0)
[2017-05-19 08:50] LABS: HEMO FLAGS AUTO DIFF
[2017-05-19 09:01] LABS: BICARBONATE 26.3 MEQ/L (21.0-32.0)
[2017-05-19] MEDS: SODIUM CHLORIDE 0.9% FLUSH 10 ML FLUSH IV FLUSH SCH ×2 (09:02→22:14)
[2017-05-19] MEDS: DOXYCYCLINE HYCLATE 100 MG CAP PO SCH ×2 (09:04→22:13)
[2017-05-19] MEDS: PANTOPRAZOLE SOD 40 MG DELAYED RELEASE TAB PO SCH ×2 (09:04→21:00)
[2017-05-19] MEDS: DOCUSATE SODIUM 50 MG/SENNA 8.6 MG TAB PO SCH ×2 (09:10→21:00)
[2017-05-19] MEDS: AMIODARONE 200 MG TAB PO SCH (09:11)
[2017-05-19] MEDS: PRAVASTATIN SOD 10 MG TAB PO SCH (09:12)
[2017-05-19] MEDS: DIGOXIN 0.125 MG TAB PO SCH (09:13)
[2017-05-19 09:52] LABS: POLYS (SEG NEUTROPHILS) 1 % (16-70); WBC DIFF SAMPLE 100
[2017-05-19 10:05] LABS: PLATELET ESTIMATE SMEAR LOW (NORMAL); PLATELET MORPHOLOGY NORMAL (NORMAL); SCAN/DIFF FINAL DIFF MANUAL
[2017-05-19] MEDS ORDERED: [UNRECOGNIZED DRUG - REMARK] OTHER ONE (11:00)
--- NOTE | 2017-05-19 13:41 | PD.ONC.PN ---
Subjective Subjective Remarks Afebrile overnight Resting comfortably No acute complaints Objective Data Date Time Temp Pulse Resp B/P Pulse Ox O2 Delivery O2 Flow Rate FiO2 05/19/17 08:46 63 05/19/17 08:00 98.6 62 16 114/55 96 05/19/17 04:52 97.7 66 16 105/55 95 05/19/17 04:00 54 05/19/17 02:08 96.9 66 16 110/56 97 05/19/17 01:44 97.8 61 16 106/58 98 05/19/17 01:12 97.9 59 16 96/50 95 05/19/17 00:00 60 05/18/17 23:27 98.4 66 16 107/52 94 05/18/17 23:04 99.5 66 16 97/60 93 05/18/17 22:44 99.5 66 15 100/50 93 05/18/17 21:25 65 05/18/17 20:00 100.4 67 16 114/57 95 05/18/17 17:05 97.6 67 22 130/62 97 05/18/17 16:43 67 17 124/58 98 05/18/17 16:13 64 19 124/54 97 05/18/17 15:58 98.3 68 18 127/58 96 05/18/17 15:16 98.3 68 16 120/60 96 05/18/17 15:16 98.3 68 16 120/60 96 05/18/17 14:45 98.1 65 18 106/56 97 05/18/17 14:30 98.6 66 18 103/55 96 Result Diagram: 05/19/17 0655 05/19/17 0655 Laboratory Results Laboratory Tests Test 05/18/17 05/18/17 05/19/17 18:00 20:50 06:55 White Blood Count 2.5 TH/MM3 3.6 TH/MM3 Red Blood Count 2.13 MIL/MM3 3.03 MIL/MM3 Hemoglobin 6.2 GM/DL 9.0 GM/DL Hematocrit 18.6 % 27.0 % Mean Corpuscular Volume 87.6 FL 89.2 FL Mean Corpuscular Hemoglobin 29.1 PG 29.6 PG Mean Corpuscular Hemoglobin 33.2 % 33.2 % Concent Red Cell Distribution Width 14.4 % 14.3 % Platelet Count 23 TH/MM3 21 TH/MM3 Mean Platelet Volume 7.8 FL 8.5 FL Neutrophils (%) (Auto) % 0.4 % Lymphocytes (%) (Auto) % 99.2 % Monocytes (%) (Auto) % 0.4 % Eosinophils (%) (Auto) % 0.0 % Basophils (%) (Auto) % 0.0 % Neutrophils # (Auto) TH/MM3 0.0 TH/MM3 Lymphocytes # (Auto) TH/MM3 3.6 TH/MM3 Monocytes # (Auto) TH/MM3 0.0 TH/MM3 Eosinophils # (Auto) TH/MM3 0.0 TH/MM3 Basophils # (Auto) TH/MM3 0.0 TH/MM3 CBC Comment AUTO DIFF AUTO DIFF Differential Total Cells 100 100 Counted Neutrophils % (Manual) 2 % 1 % Lymphocytes % 97 % 98 % Monocytes % 1 % 1 % Neutrophils # (Manual) 0.1 TH/MM3 0.0 TH/MM3 Differential Comment FINAL DIFF FINAL DIFF MANUAL MANUAL Atypical Lymphocytes % Platelet Estimate LOW LOW Platelet Morphology Comment NORMAL NORMAL Red Cell Morphology Comment Sodium Level 138 MEQ/L 140 MEQ/L Potassium Level 3.8 MEQ/L 4.0 MEQ/L Chloride Level 105 MEQ/L 108 MEQ/L Carbon Dioxide Level 26.3 MEQ/L 26.3 MEQ/L Anion Gap 7 MEQ/L 6 MEQ/L Blood Urea Nitrogen 19 MG/DL 19 MG/DL Creatinine 0.72 MG/DL 0.66 MG/DL Estimat Glomerular Filtration 78 ML/MIN 86 ML/MIN Rate Random Glucose 138 MG/DL 108 MG/DL Calcium Level 8.7 MG/DL 9.0 MG/DL Blood Type AB NEGATIVE Antibody Screen NEGATIVE Crossmatch Leukocyte-Reduced Red Blood Cells Blood Bank Comment Imaging Studies Last 24 hours Impressions Bone Biopsy CT 05/18/17 1456 Signed Impressions: Service Date/Time: Thursday, May 18, 2017 15:21 - CONCLUSION: 1. Uncomplicated CT guided bone marrow aspirate. 2. Uncomplicated CT guided bone marrow biopsy. Robert Cruz MD FACR Administered Medications Medications (Trade) Dose Ordered Sig/José Route PRN Reason Start Time Stop Time Status Last Admin Dose Admin Sodium Chloride (NS Flush) 2 ml BID IV FLUSH 05/18/17 21:00 05/19/17 09:02 Amiodarone HCl (Cordarone) 200 mg DAILY PO 05/19/17 09:00 05/19/17 09:11 Doxycycline Hyclate (Vibramycin) 100 mg BID PO 05/18/17 21:00 05/19/17 09:04 Levothyroxine Sodium (Synthroid) 50 mcg DAILY@0600 PO 05/19/17 06:00 05/19/17 04:55 Pantoprazole Sodium (Protonix) 40 mg BID PO 05/18/17 21:00 05/19/17 09:04 Diphenhydramine HCl (Benadryl) 25 mg Q4H PRN PO FOR BLOOD PRODUCTS 05/19/17 01:30 05/19/17 02:07 Acetaminophen (Tylenol) 650 mg Q4H PRN PO FOR BLOOD PRODUCTS 05/19/17 01:30 05/19/17 02:08 Objective Remarks GENERAL: Elderly female resting in bed in no distress SKIN: Warm and dry. HEAD: Normocephalic. EYES: No injection or drainage. NECK: Supple, trachea midline. CARDIOVASCULAR: + S1/S2 RESPIRATORY: Clear anteriorly. Breathing unlabored. GASTROINTESTINAL: Abdomen soft, non-tender, nondistended. EXTREMITIES: No cyanosis, or edema. Scattered mild bruising to bilateral upper and lower extremities NEUROLOGICAL: No obvious focal deficit. Awake, alert, and oriented x3. Assessment/Plan Problem List: (1) Pancytopenia Status: Acute Plan: -- She is suspected to have a diagnosis of aplastic anemia -- Await bone marrow biopsy results -- Begin immunosuppression therapy with ATG and cyclosporine Hx/Workup: This is an 82-year-old female who has been having bruising, petechiae and recurrent epistaxis. She was seen in our clinic on May 16 and was noted to have pancytopenia. She is having worsening cytopenias. She was admitted for a plan of treatment with ATG and cyclosporine. CBC in October 2016 was quite normal. Assessment 82-year-old female with anemia brought in for immunosuppressive treatment Plan 1. Begin immunosuppressive treatment tomorrow with ATG and cyclosporine 2. Will likely give ATG on days 1 through 4. 3. Monitor patient for serum sickness after treatment begins 4. Monitor CBC. Merry Hebert May 19, 2017 13:41
--- NOTE | 2017-05-19 14:22 | HHI.PR ---
Subjective Interval History Alert, oriented, feels better today, general weakness but no pain, no evidence of bleeding Review of Systems Constitutional Constitutional Remarks 10 systems reviewed otherwise negative Vitals/Results Intake & Output 05/18/17 05/18/17 05/19/17 15:00 23:00 07:00 Intake Total 240 ml 300 ml Balance 240 ml 300 ml Intake Oral 240 ml 300 ml # Voids 2 1 # Bowel Movements 0 Vital Signs Vital Signs Date Time Temp Pulse Resp B/P Pulse Ox O2 Delivery O2 Flow Rate FiO2 05/19/17 12:00 99.3 65 18 110/53 95 05/19/17 08:46 63 05/19/17 08:00 98.6 62 16 114/55 96 05/19/17 04:52 97.7 66 16 105/55 95 05/19/17 04:00 54 05/19/17 02:08 96.9 66 16 110/56 97 05/19/17 01:44 97.8 61 16 106/58 98 05/19/17 01:12 97.9 59 16 96/50 95 05/19/17 00:00 60 05/18/17 23:27 98.4 66 16 107/52 94 05/18/17 23:04 99.5 66 16 97/60 93 05/18/17 22:44 99.5 66 15 100/50 93 05/18/17 21:25 65 05/18/17 20:00 100.4 67 16 114/57 95 05/18/17 17:05 97.6 67 22 130/62 97 05/18/17 16:43 67 17 124/58 98 05/18/17 16:13 64 19 124/54 97 05/18/17 15:58 98.3 68 18 127/58 96 05/18/17 15:16 98.3 68 16 120/60 96 05/18/17 15:16 98.3 68 16 120/60 96 05/18/17 14:45 98.1 65 18 106/56 97 05/18/17 14:30 98.6 66 18 103/55 96 CBC/BMP: 05/19/17 0655 05/19/17 0655 Lab Results Laboratory Tests Test 05/18/17 05/18/17 05/19/17 18:00 20:50 06:55 White Blood Count 2.5 TH/MM3 3.6 TH/MM3 Red Blood Count 2.13 MIL/MM3 3.03 MIL/MM3 Hemoglobin 6.2 GM/DL 9.0 GM/DL Hematocrit 18.6 % 27.0 % Mean Corpuscular Volume 87.6 FL 89.2 FL Mean Corpuscular Hemoglobin 29.1 PG 29.6 PG Mean Corpuscular Hemoglobin 33.2 % 33.2 % Concent Red Cell Distribution Width 14.4 % 14.3 % Platelet Count 23 TH/MM3 21 TH/MM3 Mean Platelet Volume 7.8 FL 8.5 FL Neutrophils (%) (Auto) % 0.4 % Lymphocytes (%) (Auto) % 99.2 % Monocytes (%) (Auto) % 0.4 % Eosinophils (%) (Auto) % 0.0 % Basophils (%) (Auto) % 0.0 % Neutrophils # (Auto) TH/MM3 0.0 TH/MM3 Lymphocytes # (Auto) TH/MM3 3.6 TH/MM3 Monocytes # (Auto) TH/MM3 0.0 TH/MM3 Eosinophils # (Auto) TH/MM3 0.0 TH/MM3 Basophils # (Auto) TH/MM3 0.0 TH/MM3 CBC Comment AUTO DIFF AUTO DIFF Differential Total Cells 100 100 Counted Neutrophils % (Manual) 2 % 1 % Lymphocytes % 97 % 98 % Monocytes % 1 % 1 % Neutrophils # (Manual) 0.1 TH/MM3 0.0 TH/MM3 Differential Comment FINAL DIFF FINAL DIFF MANUAL MANUAL Atypical Lymphocytes % Platelet Estimate LOW LOW Platelet Morphology Comment NORMAL NORMAL Red Cell Morphology Comment Sodium Level 138 MEQ/L 140 MEQ/L Potassium Level 3.8 MEQ/L 4.0 MEQ/L Chloride Level 105 MEQ/L 108 MEQ/L Carbon Dioxide Level 26.3 MEQ/L 26.3 MEQ/L Anion Gap 7 MEQ/L 6 MEQ/L Blood Urea Nitrogen 19 MG/DL 19 MG/DL Creatinine 0.72 MG/DL 0.66 MG/DL Estimat Glomerular Filtration 78 ML/MIN 86 ML/MIN Rate Random Glucose 138 MG/DL 108 MG/DL Calcium Level 8.7 MG/DL 9.0 MG/DL Blood Type AB NEGATIVE Antibody Screen NEGATIVE Crossmatch Leukocyte-Reduced Red Blood Cells Blood Bank Comment Physical Exam General General Appearance: Well Developed, Comfortable Eyes Eye Exam: Pupils Reactive Ears & Nose Ears & Nose Exam: Nasal Mucosa [place] Throat Throat Exam: Oral Mucosa [place] & Moist Neck Neck Exam: Trachea Midline Pulmonary Resp Exam: Clear Bilaterally, Breath Sounds Equal, No Distress Cardiology CV Exam: Good Perfusion, Irregular Gastrointestinal/Abdomen GI Exam: Soft, Non-Tender, Bowel Sounds Present Musculoskeletal MS Exam: Normal Tone Integumentary Skin Exam: Warm, Dry (is a) Neurologic Neuro Exam: Alert, Awake, Oriented, Speech Clear, 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, Whiskey Filterer Equal, 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 Psychiatric Psych Exam: Appropriate Responses VTE Prophylaxis VTE Remarks And currently she is contraindicated, both chemical (because of risk of bleeding )and mechanical (because of risk of bruising/ecchymoses/bleeding ) PUD Prophylasis PUD Prophylaxis: Protonix Assessment/Plan Assessment/Plan Assessment Symptomatic anemia, Improved after transfusion Severe profound symptomatic thrombocytopenia, Improved after transfusion Uncontrolled aplastic anemia Status post bone marrow biopsy 05/18/17 Recent diagnosis of atrial fibrillation Recent diagnosis of gastric erosions Management Telemetry Follow Bone marrow biopsy report It has already been done today The patient needs to be started tomorrow on chemotherapy Follow complete blood count Follow electrolytes and replace as needed Continue proton pump inhibitor Discussed with patient Discussed with nurse 40 minutes spent Elan Espinoza MD May 19, 2017 14:22
[2017-05-20] VITALS (16 sets, daily range): BP systolic 111–200; BP diastolic 56–93; PULSE 60–71; RESP 16–20; TEMP 97.6–99.7; O2SAT 93–99
[2017-05-20] MEDS: LEVOTHYROXINE SODIUM 50 MCG TAB PO SCH (05:43)
[2017-05-20] MEDS: cycloSPORINE 25 MG CAP PO SCH ×2 (05:43→17:03)
[2017-05-20] MEDS: cycloSPORINE 100 MG CAP PO SCH ×2 (05:43→17:03)
[2017-05-20 08:04] LABS: MEAN CELL VOLUME 86.8 FL (80.0-100.0); MEAN CORPUSCULAR HEMOGLOBIN 29.4 PG (27.0-34.0); MEAN CORPUSCULAR HGB CONC 33.9 % (32.0-36.0); RED BLOOD COUNT 2.76 MIL/MM3 (4.00-5.30); RED CELL DISTRIBUTION WIDTH 14.2 % (11.6-17.2); WHITE BLOOD COUNT 2.9 TH/MM3 (4.0-11.0)
[2017-05-20 08:10] LABS: HEMO FLAGS AUTO DIFF
[2017-05-20 08:12] LABS: PLATELET COUNT 14 TH/MM3 (150-450)
[2017-05-20 08:16] LABS: BICARBONATE 28.5 MEQ/L (21.0-32.0); POTASSIUM 3.8 MEQ/L (3.5-5.1)
[2017-05-20 08:43] LABS: WBC DIFF SAMPLE 100
[2017-05-20 08:44] LABS: PLATELET ESTIMATE SMEAR RARE (NORMAL); PLATELET MORPHOLOGY NORMAL (NORMAL); SCAN/DIFF FINAL DIFF MANUAL
[2017-05-20] MEDS: DIGOXIN 0.125 MG TAB PO SCH (09:00)
[2017-05-20] MEDS: DOCUSATE SODIUM 50 MG/SENNA 8.6 MG TAB PO SCH ×2 (09:00→21:00)
[2017-05-20] MEDS: SODIUM CHLORIDE 0.9% FLUSH 10 ML FLUSH IV FLUSH SCH ×2 (09:00→21:00)
[2017-05-20] MEDS ORDERED: SODIUM CHLOR 0.9% 250 ML INJ 250 ML IV ONE (09:15)
[2017-05-20] MEDS: AMIODARONE 200 MG TAB PO SCH (09:22)
[2017-05-20] MEDS: PRAVASTATIN SOD 10 MG TAB PO SCH (09:22)
[2017-05-20] MEDS: DOXYCYCLINE HYCLATE 100 MG CAP PO SCH ×2 (09:22→22:35)
[2017-05-20] MEDS: PANTOPRAZOLE SOD 40 MG DELAYED RELEASE TAB PO SCH ×2 (09:22→21:00)
[2017-05-20] MEDS: SODIUM CHLOR 0.9% 1000 ML INJ 1,000 ML IV SCH (10:00)
[2017-05-20] MEDS ORDERED: [UNRECOGNIZED DRUG - REMARK] OTHER ONE (11:00)
[2017-05-20] MEDS ORDERED: methylPREDNISolone SOD SUCC 40 MG/1 ML VIAL IV SCH (11:00)
[2017-05-20] MEDS ORDERED: SODIUM CHLORIDE 0.9% 10 ML VIAL OTHER ONE (11:00)
[2017-05-20] MEDS ORDERED: ACETAMINOPHEN 325 MG TAB PO SCH (11:00)
[2017-05-20] MEDS ORDERED: diphenhydrAMINE HCL 50 MG CAP PO SCH (11:00)
--- NOTE | 2017-05-20 11:03 | RADRPT ---
EXAM DATE/TIME: 05/18/2017 13:31 [place] COMPARISON: No previous studies available for comparison. INDICATIONS : Patient is in need of placement of a left sided PICC line for medication administration. MEDICAL HISTORY : History of severe anemia, thrombocytopenia, PE, OR, hyperlipidemia, recurrent AFIB. SURGICAL HISTORY : History of bunion surgery, cataract removal. ENCOUNTER: Initial ACUITY: 2 weeks PAIN SCORE: 0/10 FLUORO TIME: 0.5 minutes IMAGE SERIES: 1 ACCESS: Left basilic vein DEVICE(S): 1.) 5 Lao dual lumen 45 cm Xcela Power PICC PROCEDURE : 1. Ultrasound guidance for venous catheterization. 2. Fluoroscopic guidance. 3. Ultrasound & fluoroscopic guided central venous Power PICC line placement. The risks, benefits and alternatives to the procedure were explained and verbal and written consent w as obtained. The site was prepped in sterile fashion. Full sterile technique was used, including ca p, mask, sterile gloves and gown and a large sterile sheet. Hand hygiene and 2% chlorhexidine prep w as utilized per protocol for cutaneous antisepsis with appropriate dry time for site. The skin and s ubcutaneous tissues were infiltrated with local anesthetic solution. Under direct ultrasound guidance, a suitable vein was accessed and a measuring guidewire was introduc ed and positioned in the central venous system. The ultrasound images depicting access guidance were saved and stored to PACS for permanent record. A Power Injectable PICC line was cut to prescribed length and introduced, positioned with tip at the cavoatrial junction level. The line was flushed and secured per protocol. CONCLUSION: 1. Uncomplicated central venous Power PICC line placement. 2. The PICC line can be used immediately. Meliton Lerma MD on May 20, 2017 at 10:49 Board Certified Radiologist. This report was verified electronically.
--- NOTE | 2017-05-20 13:07 | PD.ONC.PN ---
Subjective Subjective Remarks Afebrile overnight. Patient noticed some redness and tenderness about her right pinna today. She said the ear had been bothering her for a few days and then today she noticed some redness. NO other symptoms. Objective Data Date Time Temp Pulse Resp B/P Pulse Ox O2 Delivery O2 Flow Rate FiO2 05/20/17 12:03 98.8 62 20 118/56 99 05/20/17 12:00 64 05/20/17 08:15 67 05/20/17 08:00 97.9 67 20 119/69 96 05/20/17 04:00 98.3 70 17 112/57 94 05/20/17 00:05 70 05/20/17 00:00 99.7 69 17 111/93 93 05/19/17 20:00 100.1 71 18 85/44 94 05/19/17 20:00 71 05/19/17 16:00 100.3 67 18 119/56 94 Result Diagram: 05/20/17 0555 05/20/17 0555 Laboratory Results Laboratory Tests Test 05/20/17 05/20/17 05:55 09:09 White Blood Count 2.9 TH/MM3 Red Blood Count 2.76 MIL/MM3 Hemoglobin 8.1 GM/DL Hematocrit 24.0 % Mean Corpuscular Volume 86.8 FL Mean Corpuscular Hemoglobin 29.4 PG Mean Corpuscular Hemoglobin 33.9 % Concent Red Cell Distribution Width 14.2 % Platelet Count 14 TH/MM3 Mean Platelet Volume 8.4 FL Neutrophils (%) (Auto) % Lymphocytes (%) (Auto) % Monocytes (%) (Auto) % Eosinophils (%) (Auto) % Basophils (%) (Auto) % Neutrophils # (Auto) TH/MM3 Lymphocytes # (Auto) TH/MM3 Monocytes # (Auto) TH/MM3 Eosinophils # (Auto) TH/MM3 Basophils # (Auto) TH/MM3 CBC Comment AUTO DIFF Differential Total Cells 100 Counted Lymphocytes % 100 % Neutrophils # (Manual) 0.0 TH/MM3 Differential Comment FINAL DIFF MANUAL Platelet Estimate RARE Platelet Morphology Comment NORMAL Sodium Level 141 MEQ/L Potassium Level 3.8 MEQ/L Chloride Level 106 MEQ/L Carbon Dioxide Level 28.5 MEQ/L Anion Gap 7 MEQ/L Blood Urea Nitrogen 16 MG/DL Creatinine 0.63 MG/DL Estimat Glomerular Filtration 90 ML/MIN Rate Random Glucose 99 MG/DL Calcium Level 8.7 MG/DL Hepatitis A IgM Antibody NEGATIVE Hepatitis B Surface Antigen NEGATIVE Hepatitis B Core IgM Antibody NEGATIVE Hepatitis C Antibody NEGATIVE HIV (1&2) Antibody NEGATIVE Blood Bank Comment Administered Medications Medications (Trade) Dose Ordered Sig/José Route PRN Reason Start Time Stop Time Status Last Admin Dose Admin Sodium Chloride (NS Flush) 2 ml BID IV FLUSH 05/18/17 21:00 05/19/17 22:14 Amiodarone HCl (Cordarone) 200 mg DAILY PO 05/19/17 09:00 05/20/17 09:22 Doxycycline Hyclate (Vibramycin) 100 mg BID PO 05/18/17 21:00 05/20/17 09:22 Levothyroxine Sodium (Synthroid) 50 mcg DAILY@0600 PO 05/19/17 06:00 05/20/17 05:43 Pantoprazole Sodium (Protonix) 40 mg BID PO 05/18/17 21:00 05/20/17 09:22 Pravastatin Sodium (Pravachol) 10 mg DAILY PO 05/19/17 09:00 05/20/17 09:22 Diphenhydramine HCl (Benadryl) 25 mg Q4H PRN PO FOR BLOOD PRODUCTS 05/19/17 01:30 05/19/17 02:07 Acetaminophen (Tylenol) 650 mg Q4H PRN PO FOR BLOOD PRODUCTS 05/19/17 01:30 05/19/17 02:08 Diphenhydramine HCl (Benadryl) 50 mg Q24H PO 05/20/17 11:00 05/23/17 11:01 05/20/17 11:48 Acetaminophen (Tylenol) 650 mg Q24H PO 05/20/17 11:00 05/23/17 11:01 05/20/17 11:48 Cyclosporine (SandIMMUNE) 300 mg BID@,18 PO 05/20/17 06:00 06/02/17 18:01 05/20/17 05:43 Cyclosporine (SandIMMUNE) 50 mg BID@,18 PO 05/20/17 06:00 06/02/17 18:01 05/20/17 05:43 Objective Remarks GENERAL: Elderly female upright in bed in nad SKIN: Warm and dry. right pinna erythematous and tender HEAD: Normocephalic. EYES: No injection or drainage. NECK: Supple, trachea midline. CARDIOVASCULAR: Regular rate and rhythm RESPIRATORY: Breath sounds equal bilaterally. No accessory muscle use. GASTROINTESTINAL: Abdomen soft, non-tender, nondistended. EXTREMITIES: No cyanosis NEUROLOGICAL: No obvious focal deficit. Awake, alert, and oriented x3. Assessment/Plan Problem List: (1) Pancytopenia Status: Acute Plan: -- aplastic anemia suspected -- bone marrow biopsy results pending -- Begin immunosuppression therapy with ATG and cyclosporine Hx/Workup: This is an 82-year-old female who has been having bruising, petechiae and recurrent epistaxis. She was seen in our clinic on May 16 and was noted to have pancytopenia. She is having worsening cytopenias. She was admitted for a plan of treatment with ATG and cyclosporine. CBC in October 2016 was normal. (2) Cellulitis of ear Status: Acute Plan: --start Vanco and Cefepime --consult ID d/t severe neutropenia Assessment 82-year-old female with anemia brought in for immunosuppressive treatment Plan 1. start ATG and cyclosporine 2. monitor CBC 3. start Vanco and Cefepime 4. consult infectious disease 5. 1 unit platelets Attending Statement The exam, history, and the medical decision-making described in the above note were completed with the assistance of the mid-level provider. I reviewed and agree with the findings presented. I attest that I had a [id number] encounter with the patient on the same day, and personally performed and documented my assessment and findings in the medical record. Pt seen and examined. Discussed with nursing and pharmacy the protocol and test dose and dose adjustments, round to nearest vial. Tolerating ATG/CSA, discussed risks and benefits of treatment with Promacta. Sample obtained, pt to start Promacta 50mg daily on Day 1. Monitor for toxicity. Discussed w/ pathology, second bone marrow aplastic. Without dysplasia, negative cytogenetics and neg flow complement dx Aplastic anemia. Pt with symptoms of fatigue over 3 months, bruising several weeks ago. Discussed w/ Dr. Ana mcdonald. Cecilia Hughes May 20, 2017 13:07 Luna Marie MD May 20, 2017 17:39
[2017-05-20] MEDS ORDERED: VANCOMYCIN INJ 1,000 MG in SODIUM CHLOR 0.9% 250 ML INJ 250 ML IV ONE (13:15)
[2017-05-20] MEDS ORDERED: Vancomycin Consult Pharmacy 1 EA OTHER SCH (13:15)
[2017-05-20] MEDS ORDERED: VANCOMYCIN 1,000 MG/NS 250 ML IV SCH ×2 (15:00)
[2017-05-20] MEDS: [UNRECOGNIZED DRUG - REMARK] IV SCH ×3 (16:00→22:37)
--- NOTE | 2017-05-20 16:38 | HHI.PR ---
Subjective Interval History Alert, oriented, feels well, denies pain, denies fever, no trouble breathing Review of Systems Constitutional Constitutional Remarks 10 systems reviewed otherwise negative Vitals/Results Intake & Output 05/19/17 05/19/17 05/20/17 15:00 23:00 07:00 Intake Total 960 ml Balance 960 ml Intake Oral 960 ml # Voids 4 1 # Bowel Movements 1 Vital Signs Vital Signs Date Time Temp Pulse Resp B/P Pulse Ox O2 Delivery O2 Flow Rate FiO2 05/20/17 16:25 97.9 61 20 141/67 95 05/20/17 16:16 98.6 62 20 143/70 96 05/20/17 12:03 98.8 62 20 118/56 99 05/20/17 12:00 64 05/20/17 08:15 67 05/20/17 08:00 97.9 67 20 119/69 96 05/20/17 04:00 98.3 70 17 112/57 94 05/20/17 00:05 70 05/20/17 00:00 99.7 69 17 111/93 93 05/19/17 20:00 100.1 71 18 85/44 94 05/19/17 20:00 71 CBC/BMP: 05/20/17 0555 05/20/17 0555 Lab Results Laboratory Tests Test 05/20/17 05/20/17 05:55 09:09 White Blood Count 2.9 TH/MM3 Red Blood Count 2.76 MIL/MM3 Hemoglobin 8.1 GM/DL Hematocrit 24.0 % Mean Corpuscular Volume 86.8 FL Mean Corpuscular Hemoglobin 29.4 PG Mean Corpuscular Hemoglobin 33.9 % Concent Red Cell Distribution Width 14.2 % Platelet Count 14 TH/MM3 Mean Platelet Volume 8.4 FL Neutrophils (%) (Auto) % Lymphocytes (%) (Auto) % Monocytes (%) (Auto) % Eosinophils (%) (Auto) % Basophils (%) (Auto) % Neutrophils # (Auto) TH/MM3 Lymphocytes # (Auto) TH/MM3 Monocytes # (Auto) TH/MM3 Eosinophils # (Auto) TH/MM3 Basophils # (Auto) TH/MM3 CBC Comment AUTO DIFF Differential Total Cells 100 Counted Lymphocytes % 100 % Neutrophils # (Manual) 0.0 TH/MM3 Differential Comment FINAL DIFF MANUAL Platelet Estimate RARE Platelet Morphology Comment NORMAL Sodium Level 141 MEQ/L Potassium Level 3.8 MEQ/L Chloride Level 106 MEQ/L Carbon Dioxide Level 28.5 MEQ/L Anion Gap 7 MEQ/L Blood Urea Nitrogen 16 MG/DL Creatinine 0.63 MG/DL Estimat Glomerular Filtration 90 ML/MIN Rate Random Glucose 99 MG/DL Calcium Level 8.7 MG/DL Hepatitis A IgM Antibody NEGATIVE Hepatitis B Surface Antigen NEGATIVE Hepatitis B Core IgM Antibody NEGATIVE Hepatitis C Antibody NEGATIVE HIV (1&2) Antibody NEGATIVE Blood Bank Comment Physical Exam General General Appearance: Well Developed, Comfortable Eyes Eye Exam: Pupils Reactive Ears & Nose Ears & Nose Exam: Nasal Mucosa [place] Throat Throat Exam: Oral Mucosa [place] & Moist Neck Neck Exam: Trachea Midline Pulmonary Resp Exam: Clear Bilaterally, Breath Sounds Equal, No Distress Cardiology CV Exam: Good Perfusion, Irregular Gastrointestinal/Abdomen GI Exam: Soft, Non-Tender, Bowel Sounds Present Musculoskeletal MS Exam: Normal Tone Integumentary Skin Exam: Warm, Dry (is a) Skin Remarks Extensive ecchymoses Neurologic Neuro Exam: Alert, Awake, Oriented, Speech Clear, 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, All Around Patternmaker Equal, 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 Psychiatric Psych Exam: Appropriate Responses VTE Prophylaxis VTE Remarks anticoagulation is contraindicated, both chemical (because of risk of bleeding )and mechanical (because of risk of bruising/ecchymoses/bleeding ) PUD Prophylasis PUD Prophylaxis: Protonix Assessment/Plan Assessment/Plan Assessment Symptomatic anemia, Improved after transfusion Severe profound symptomatic thrombocytopenia, given platelets again today Uncontrolled aplastic anemia Status post bone marrow biopsy 05/18/17 Recent diagnosis of atrial fibrillation Recent diagnosis of gastric erosions Management ATG and cyclosporine starting today Telemetry Follow Bone marrow biopsy report Follow complete blood count Follow electrolytes and replace as needed Continue proton pump inhibitor Discussed with patient Discussed with nurse 40 minutes spent Elan Espinoza MD May 20, 2017 16:38
[2017-05-20] MEDS ORDERED: MEPERIDINE HCL 25 MG/ML VIAL IV PUSH STA (18:11)
[2017-05-20] MEDS ORDERED: HYDROCORTISONE SOD SUCCINATE 100 MG VIAL IV PUSH ONE (18:15)
[2017-05-20] MEDS: CEFEPIME INJ 2,000 MG in SODIUM CHLORIDE 0.9% INJ 100 ML IV SCH (18:24)
[2017-05-20] MEDS ORDERED: cloNIDine HCL 0.1 MG TAB PO PRN (18:30)
[2017-05-20] MEDS: PATIENT OWN MEDICATION PO SCH (22:36)
[2017-05-21] VITALS (8 sets, daily range): BP systolic 112–145; BP diastolic 65–74; PULSE 61–101; RESP 16–20; TEMP 96.3–98.4; O2SAT 93–96
[2017-05-21] MEDS: CEFEPIME INJ 2,000 MG in SODIUM CHLORIDE 0.9% INJ 100 ML IV SCH ×2 (03:00→14:05)
[2017-05-21] MEDS: SODIUM CHLOR 0.9% 1000 ML INJ 1,000 ML IV SCH (06:00)
[2017-05-21] MEDS: cycloSPORINE 100 MG CAP PO SCH ×2 (06:32→17:55)
[2017-05-21] MEDS: cycloSPORINE 25 MG CAP PO SCH ×2 (06:32→17:56)
[2017-05-21] MEDS: LEVOTHYROXINE SODIUM 50 MCG TAB PO SCH (06:32)
[2017-05-21 07:16] LABS: HEMATOCRIT 23.4 % (35.0-46.0); MEAN CELL VOLUME 85.3 FL (80.0-100.0); MEAN CORPUSCULAR HEMOGLOBIN 29.5 PG (27.0-34.0); MEAN CORPUSCULAR HGB CONC 34.6 % (32.0-36.0); PLATELET COUNT 47 TH/MM3 (150-450); RED BLOOD COUNT 2.75 MIL/MM3 (4.00-5.30); RED CELL DISTRIBUTION WIDTH 13.5 % (11.6-17.2); WHITE BLOOD COUNT 0.3 TH/MM3 (4.0-11.0)
[2017-05-21 07:19] LABS: HEMO FLAGS AUTO DIFF
[2017-05-21 07:41] LABS: BICARBONATE 26.9 MEQ/L (21.0-32.0); POTASSIUM 4.1 MEQ/L (3.5-5.1)
[2017-05-21 07:44] LABS: INDIRECT BILIRUBIN 0.6 MG/DL (0.0-0.8); TOTAL BILIRUBIN ADULT 1.2 MG/DL (0.2-1.0)
[2017-05-21 08:30] LABS: PLATELET ESTIMATE SMEAR LOW (NORMAL); PLATELET MORPHOLOGY NORMAL (NORMAL); SCAN/DIFF FINAL DIFF MANUAL; WBC DIFF SAMPLE 25
[2017-05-21] MEDS: PANTOPRAZOLE SOD 40 MG DELAYED RELEASE TAB PO SCH ×2 (09:00→19:48)
[2017-05-21] MEDS: DOCUSATE SODIUM 50 MG/SENNA 8.6 MG TAB PO SCH ×2 (09:00→19:50)
[2017-05-21] MEDS ORDERED: MEPERIDINE HCL 25 MG/ML VIAL IV PUSH SCH (09:00)
[2017-05-21] MEDS: DIGOXIN 0.125 MG TAB PO SCH (09:00)
[2017-05-21] MEDS: PRAVASTATIN SOD 10 MG TAB PO SCH (10:04)
[2017-05-21] MEDS: AMIODARONE 200 MG TAB PO SCH (10:04)
[2017-05-21] MEDS: DOXYCYCLINE HYCLATE 100 MG CAP PO SCH (10:05)
[2017-05-21] MEDS: PATIENT OWN MEDICATION PO SCH (10:07)
[2017-05-21] MEDS: SODIUM CHLORIDE 0.9% FLUSH 10 ML FLUSH IV FLUSH SCH ×2 (10:08→19:51)
--- NOTE | 2017-05-21 10:52 | PD.ONC.PN ---
Subjective Subjective Remarks Afebrile overnight. Patient states right ear redness is improving. She is concerned about an abrasion that developed on her lip last week while at rehab. While at rehab her lips became chapped while she was on supplemental O2 and she developed an abrasion to her lip. Tolerated her first ATGAM infusion yesterday. She had some rigors during the infusion which improved with demerol. Objective Data Date Time Temp Pulse Resp B/P Pulse Ox O2 Delivery O2 Flow Rate FiO2 05/21/17 07:30 97.5 65 20 141/72 96 05/21/17 04:00 96.3 64 16 113/66 95 05/21/17 04:00 61 05/21/17 01:21 65 05/21/17 00:00 96.3 62 16 137/74 93 05/20/17 20:11 65 05/20/17 20:00 98.0 69 16 138/74 94 05/20/17 19:15 97.6 69 20 138/62 99 05/20/17 18:34 99.5 71 20 161/79 99 05/20/17 16:39 97.6 60 20 141/67 96 05/20/17 16:25 97.9 61 20 141/67 95 05/20/17 16:16 98.6 62 20 143/70 96 05/20/17 16:00 60 05/20/17 12:03 98.8 62 20 118/56 99 05/20/17 12:00 64 05/21/17 05/21/17 05/21/17 07:00 15:00 23:00 Intake Total 240 ml Output Total 250 ml Balance -10 ml Result Diagram: 05/21/1740 05/21/17 0640 Laboratory Results Laboratory Tests Test 05/21/17 06:40 White Blood Count 0.3 TH/MM3 Red Blood Count 2.75 MIL/MM3 Hemoglobin 8.1 GM/DL Hematocrit 23.4 % Mean Corpuscular Volume 85.3 FL Mean Corpuscular Hemoglobin 29.5 PG Mean Corpuscular Hemoglobin 34.6 % Concent Red Cell Distribution Width 13.5 % Platelet Count 47 TH/MM3 Mean Platelet Volume 8.2 FL Neutrophils (%) (Auto) % Lymphocytes (%) (Auto) % Monocytes (%) (Auto) % Eosinophils (%) (Auto) % Basophils (%) (Auto) % Neutrophils # (Auto) TH/MM3 Lymphocytes # (Auto) TH/MM3 Monocytes # (Auto) TH/MM3 Eosinophils # (Auto) TH/MM3 Basophils # (Auto) TH/MM3 CBC Comment AUTO DIFF Differential Total Cells 25 Counted Lymphocytes % 100 % Neutrophils # (Manual) 0.0 TH/MM3 Differential Comment FINAL DIFF MANUAL Platelet Estimate LOW Platelet Morphology Comment NORMAL Red Cell Morphology Comment NORMAL Sodium Level 141 MEQ/L Potassium Level 4.1 MEQ/L Chloride Level 108 MEQ/L Carbon Dioxide Level 26.9 MEQ/L Anion Gap 6 MEQ/L Blood Urea Nitrogen 23 MG/DL Creatinine 0.75 MG/DL Estimat Glomerular Filtration 74 ML/MIN Rate Random Glucose 128 MG/DL Calcium Level 8.8 MG/DL Total Bilirubin 1.2 MG/DL Direct Bilirubin 0.6 MG/DL Indirect Bilirubin 0.6 MG/DL Aspartate Amino Transf 34 U/L (AST/SGOT) Alanine Aminotransferase 53 U/L (ALT/SGPT) Alkaline Phosphatase 103 U/L Total Protein 7.3 GM/DL Albumin 2.6 GM/DL Administered Medications Medications (Trade) Dose Ordered Sig/José Route PRN Reason Start Time Stop Time Status Last Admin Dose Admin Sodium Chloride (NS Flush) 2 ml BID IV FLUSH 05/18/17 21:00 05/21/17 10:08 Amiodarone HCl (Cordarone) 200 mg DAILY PO 05/19/17 09:00 05/21/17 10:04 Doxycycline Hyclate (Vibramycin) 100 mg BID PO 05/18/17 21:00 05/21/17 10:05 Levothyroxine Sodium (Synthroid) 50 mcg DAILY@0600 PO 05/19/17 06:00 05/21/17 06:32 Pantoprazole Sodium (Protonix) 40 mg BID PO 05/18/17 21:00 05/21/17 09:00 Pravastatin Sodium (Pravachol) 10 mg DAILY PO 05/19/17 09:00 05/21/17 10:04 Diphenhydramine HCl (Benadryl) 25 mg Q4H PRN PO FOR BLOOD PRODUCTS 05/19/17 01:30 05/19/17 02:07 Acetaminophen (Tylenol) 650 mg Q4H PRN PO FOR BLOOD PRODUCTS 05/19/17 01:30 05/19/17 02:08 Diphenhydramine HCl (Benadryl) 50 mg Q24H PO 05/20/17 11:00 05/23/17 11:01 05/20/17 11:48 Acetaminophen (Tylenol) 650 mg Q24H PO 05/20/17 11:00 05/23/17 11:01 05/20/17 11:48 Methylprednisolone Sodium Succinate (SoluMEDROL INJ) 40 mg Q24H IV 05/20/17 11:00 05/23/17 11:01 05/20/17 13:48 Cyclosporine (SandIMMUNE) 300 mg BID@06,18 PO 05/20/17 06:00 06/02/17 18:01 05/21/17 06:32 Cyclosporine (SandIMMUNE) 50 mg BID@,18 PO 05/20/17 06:00 06/02/17 18:01 05/21/17 06:32 Non-Formulary Medication ATGAM 2500 MG DILUTED IN 500... Q24H IV 05/20/17 12:00 05/23/17 12:01 05/20/17 22:37 Cefepime HCl/ Sodium Chloride (Maxipime Inj/NS Inj) 100 ml @ 200 mls/hr Q12H IV 05/20/17 14:00 05/21/17 03:00 Patient Own Medication Promacta 50mg PO Da... DAILY PO 05/20/17 20:00 05/21/17 10:07 Objective Remarks GENERAL: Elderly female upright in bed in nad SKIN: Warm and dry. right pinna redness improved. light bruising noted on extremities. HEAD: Normocephalic. EYES: No injection or drainage. NECK: Supple, trachea midline. CARDIOVASCULAR: +S1/S2 RESPIRATORY: Breath sounds equal bilaterally. No accessory muscle use. GASTROINTESTINAL: Abdomen soft, non-tender, nondistended. EXTREMITIES: No cyanosis NEUROLOGICAL: awake and alert, normal speech. moving all extremities. Assessment/Plan Problem List: (1) Pancytopenia Status: Acute Plan: -- +aplastic anemia -- bone marrow biopsy results pending --05/21/17: ATG and cyclosporine Day 1, had some rigors during ATG which resolved with demerol. Promacta started --05/22/17: continue ATG and cyclosporine. continue Promacta (2) Cellulitis of ear Status: Acute Plan: -on Vanco and Cefepime --ID consulted Assessment 82-year-old female with anemia brought in for immunosuppressive treatment Plan 1. continue ATG and cyclosporine 2. monitor CBC 3. continue Vanco and Cefepime 4. continue Promacta Attending Statement The exam, history, and the medical decision-making described in the above note were completed with the assistance of the mid-level provider. I reviewed and agree with the findings presented. I attest that I had a [id number] encounter with the patient on the same day, and personally performed and documented my assessment and findings in the medical record. Patient seen and examined, vital signs, labs, medications, treatment history reviewed. 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 Moon to have aplastic anemia and was initiated on ATG. ATG was initiated last night at about 10, the patient developed chills and right gutters and was treated with Demerol after that tolerated the treatment reasonably well at a slower than recommended infusion rate. The plan is to treat with a total of 4 daily infusions of ATG and await response. Subjectively patient denies acute complaints, she denies fevers, chills, night sweats or overt bleeding. She does have an active area of cellulitis involving the pinna of the right ear and underwent an area of ulceration overlying her upper lip. She is on empiric antibiotic therapy and receives transfusional support as needed. I did talk to the nursing staff about moving up the ATG dosing from 10:00 PM start time to about 6 PM start time today and then to move up an additional 4 hours tomorrow so she gets the ATG during the daytime hours eventually. Cecilia Hughes May 21, 2017 10:52 Estiven Perez MD May 21, 2017 14:50
--- NOTE | 2017-05-21 14:20 | HHI.PR ---
Subjective Interval History Alert, oriented, denies complaints at rest Review of Systems Constitutional Constitutional Remarks 10 systems reviewed otherwise negative Vitals/Results Intake & Output 05/20/17 05/20/17 05/21/17 15:00 23:00 07:00 Intake Total 1920 ml 240 ml Output Total 450 ml 250 ml Balance 1470 ml -10 ml Intake Oral 1920 ml 240 ml Output Urine Total 450 ml 250 ml # Voids 5 Vital Signs Vital Signs Date Time Temp Pulse Resp B/P Pulse Ox O2 Delivery O2 Flow Rate FiO2 05/21/17 11:50 97.1 64 20 137/67 96 05/21/17 07:30 97.5 65 20 141/72 96 05/21/17 04:00 96.3 64 16 113/66 95 05/21/17 04:00 61 05/21/17 01:21 65 05/21/17 00:00 96.3 62 16 137/74 93 05/20/17 20:11 65 05/20/17 20:00 98.0 69 16 138/74 94 05/20/17 19:15 97.6 69 20 138/62 99 05/20/17 18:34 99.5 71 20 161/79 99 05/20/17 16:39 97.6 60 20 141/67 96 05/20/17 16:25 97.9 61 20 141/67 95 05/20/17 16:16 98.6 62 20 143/70 96 05/20/17 16:00 60 CBC/BMP: 05/21/17 0640 05/21/17 0640 Lab Results Laboratory Tests Test 05/21/17 06:40 White Blood Count 0.3 TH/MM3 Red Blood Count 2.75 MIL/MM3 Hemoglobin 8.1 GM/DL Hematocrit 23.4 % Mean Corpuscular Volume 85.3 FL Mean Corpuscular Hemoglobin 29.5 PG Mean Corpuscular Hemoglobin 34.6 % Concent Red Cell Distribution Width 13.5 % Platelet Count 47 TH/MM3 Mean Platelet Volume 8.2 FL Neutrophils (%) (Auto) % Lymphocytes (%) (Auto) % Monocytes (%) (Auto) % Eosinophils (%) (Auto) % Basophils (%) (Auto) % Neutrophils # (Auto) TH/MM3 Lymphocytes # (Auto) TH/MM3 Monocytes # (Auto) TH/MM3 Eosinophils # (Auto) TH/MM3 Basophils # (Auto) TH/MM3 CBC Comment AUTO DIFF Differential Total Cells 25 Counted Lymphocytes % 100 % Neutrophils # (Manual) 0.0 TH/MM3 Differential Comment FINAL DIFF MANUAL Platelet Estimate LOW Platelet Morphology Comment NORMAL Red Cell Morphology Comment NORMAL Sodium Level 141 MEQ/L Potassium Level 4.1 MEQ/L Chloride Level 108 MEQ/L Carbon Dioxide Level 26.9 MEQ/L Anion Gap 6 MEQ/L Blood Urea Nitrogen 23 MG/DL Creatinine 0.75 MG/DL Estimat Glomerular Filtration 74 ML/MIN Rate Random Glucose 128 MG/DL Calcium Level 8.8 MG/DL Total Bilirubin 1.2 MG/DL Direct Bilirubin 0.6 MG/DL Indirect Bilirubin 0.6 MG/DL Aspartate Amino Transf 34 U/L (AST/SGOT) Alanine Aminotransferase 53 U/L (ALT/SGPT) Alkaline Phosphatase 103 U/L Total Protein 7.3 GM/DL Albumin 2.6 GM/DL Physical Exam General General Appearance: Well Developed, Comfortable Eyes Eye Exam: Pupils Reactive Ears & Nose Ears & Nose Exam: Nasal Mucosa [place] Throat Throat Exam: Oral Mucosa [place] & Moist Neck Neck Exam: Trachea Midline Pulmonary Resp Exam: Clear Bilaterally, Breath Sounds Equal, No Distress Cardiology CV Exam: Good Perfusion, Irregular Gastrointestinal/Abdomen GI Exam: Soft, Non-Tender, Bowel Sounds Present Musculoskeletal MS Exam: Normal Tone Integumentary Skin Exam: Warm, Dry (is a) Skin Remarks Extensive ecchymoses Neurologic Neuro Exam: Alert, Awake, Oriented, Speech Clear, 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, Community Health Worker Equal, 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 Psychiatric Psych Exam: Appropriate Responses VTE Prophylaxis VTE Remarks anticoagulation is contraindicated, both chemical (because of risk of bleeding )and mechanical (because of risk of bruising/ecchymoses/bleeding ) PUD Prophylasis PUD Prophylaxis: Protonix Assessment/Plan Assessment/Plan Assessment Leukopenia, absolute neutrophil count now is 0 Symptomatic anemia, Improved after transfusion Severe profound symptomatic thrombocytopenia, given platelets again today Uncontrolled aplastic anemia Status post bone marrow biopsy 05/18/17 Recent diagnosis of atrial fibrillation Recent diagnosis of gastric erosions Management ATG and cyclosporine Telemetry Follow Bone marrow biopsy report Follow complete blood count Follow electrolytes and replace as needed Continue proton pump inhibitor Discussed with patient Discussed with nurse Discontinue digoxin 40 minutes spent Elan Espinoza MD May 21, 2017 14:20
--- NOTE | 2017-05-21 15:19 | PD.ID.CON ---
History of Present Illness Service ID Consult Requested By Milagro Hughes Reason for Consult ear cellulitis, neutropenia Primary Care Physician Roe Chairez MD Diagnoses: History of Present Illness 82 yo female recently diagnosed with aplastic anemia/MDS when presented with pancytopnia last month She apparently left AMA and came back she co bruising and also tender red swollen R pinna She was found to have ANC 0 SHe was started on cefepime, vancomycin and she thinks her ear pain and swelling improved AT presentation she had fevr up to 100.4 , she remains afbrile in the last 48 hrs Her ANC reamains 0 Review of Systems Constitutional: COMPLAINS OF: Fever, Chills Ears, nose, mouth, throat: COMPLAINS OF: Ear Pain (R pinna) Hematologic/lymphatic: COMPLAINS OF: Bruising Except as stated in HPI: all other systems reviewed are Neg Past Family Social History Allergies: Coded Allergies: No Known Allergies (Verified , 05/08/17) Past Medical History Aplastic anemia Hyperlipidemia Atrial fibrillation Hypothyroidism Gastric erosion Severe diverticulosis Past Surgical History Left total knee replacement Right total hip replacement Active Ordered Medications Medications where reviewed in EMR Antibiotics Include: cefepime 2 gm q12 vancomycin Family History Reviewed, not contributory to current condition Social History she is a former smoker, no current smoking, no excessive alcohol or illicit use Physical Exam Vital Signs Vital Signs Date Time Temp Pulse Resp B/P Pulse Ox O2 Delivery O2 Flow Rate FiO2 05/21/17 11:50 97.1 64 20 137/67 96 05/21/17 07:30 97.5 65 20 141/72 96 05/21/17 04:00 96.3 64 16 113/66 95 05/21/17 04:00 61 05/21/17 01:21 65 05/21/17 00:00 96.3 62 16 137/74 93 05/20/17 20:11 65 05/20/17 20:00 98.0 69 16 138/74 94 05/20/17 19:15 97.6 69 20 138/62 99 05/20/17 18:34 99.5 71 20 161/79 99 05/20/17 16:39 97.6 60 20 141/67 96 05/20/17 16:25 97.9 61 20 141/67 95 05/20/17 16:16 98.6 62 20 143/70 96 05/20/17 16:00 60 Physical Exam CONSTITUTIONAL/GENERAL: This is an adequately nourished patient, in no apparent distress. TUBES/LINES/DRAINS: SKIN: No jaundice, or dissufe rash . Ecchymoses on upper extremities. No wounds seen anteriorly. Skin temperature appropriate. Not diaphoretic. HEAD: Atraumatic. Normocephalic. EYES: Pupils equal and round and reactive. Extraocular motions intact. No scleral icterus. No injection or drainage. Fundi not examined. ENT: Hearing grossly normal. Nose without bleeding or purulent drainage. Oral mucosae without visible erythema, exudates, masses, or lesions. Crusted lesions on upper lip R pinna is erythematou mildly edematous and tender to palpation, crusted lesdion on the egde of the pinna, no fluctuance, tender to palpation NECK: Trachea midline. Supple, nontender. CARDIOVASCULAR: Regular rate and rhythm without murmurs, gallops, or rubs. No JVD. Peripheral pulses symmetric. RESPIRATORY/CHEST: Symmetric, unlabored respirations. Clear to auscultation. Breath sounds equal bilaterally. No wheezes, rales, or rhonchi. GASTROINTESTINAL: Abdomen soft, non-tender, nondistended. No hepato-splenomegaly , or palpable masses. Bowel sounds present. GENITOURINARY: Without palpable bladder distension. MUSCULOSKELETAL: Extremities without clubbing, cyanosis, or edema. No calf tenderness. No mottling or clubbing. LYMPHATICS: No palpable cervical or supraclavicular adenopathy. NEUROLOGICAL: Awake and alert. Motor and sensory grossly within normal limits. Follows commands. Clear speech. Moves all extremities. PSYCHIATRIC: No obvious anxiety/depression. no apparent hallucinations or other psychotic thought process. Laboratory Laboratory Tests Test 05/21/17 06:40 White Blood Count 0.3 Red Blood Count 2.75 Hemoglobin 8.1 Hematocrit 23.4 Mean Corpuscular Volume 85.3 Mean Corpuscular Hemoglobin 29.5 Mean Corpuscular Hemoglobin 34.6 Concent Red Cell Distribution Width 13.5 Platelet Count 47 Mean Platelet Volume 8.2 Neutrophils (%) (Auto) Lymphocytes (%) (Auto) Monocytes (%) (Auto) Eosinophils (%) (Auto) Basophils (%) (Auto) Neutrophils # (Auto) Lymphocytes # (Auto) Monocytes # (Auto) Eosinophils # (Auto) Basophils # (Auto) CBC Comment AUTO DIFF Differential Total Cells 25 Counted Lymphocytes % 100 Neutrophils # (Manual) 0.0 Differential Comment FINAL DIFF MANUAL Platelet Estimate LOW Platelet Morphology Comment NORMAL Red Cell Morphology Comment NORMAL Sodium Level 141 Potassium Level 4.1 Chloride Level 108 Carbon Dioxide Level 26.9 Anion Gap 6 Blood Urea Nitrogen 23 Creatinine 0.75 Estimat Glomerular Filtration 74 Rate Random Glucose 128 Calcium Level 8.8 Total Bilirubin 1.2 Direct Bilirubin 0.6 Indirect Bilirubin 0.6 Aspartate Amino Transf 34 (AST/SGOT) Alanine Aminotransferase 53 (ALT/SGPT) Alkaline Phosphatase 103 Total Protein 7.3 Albumin 2.6 Result Diagram: 05/21/17 0640 05/21/17 0640 Imaging Last Impressions Bone Biopsy CT 05/18/17 1456 Signed Impressions: Service Date/Time: Thursday, May 18, 2017 15:21 - CONCLUSION: 1. Uncomplicated CT guided bone marrow aspirate. 2. Uncomplicated CT guided bone marrow biopsy. Robert Cruz MD FACR PICC Line Insertion 05/18/17 0000 Signed Impressions: Service Date/Time: Thursday, May 18, 2017 13:31 - CONCLUSION: 1. Uncomplicated central venous Power PICC line placement. 2. The PICC line can be used immediately. Meliton Lerma MD Assessment and Plan Assessment and Plan Aplazstic anemia, pancytopenia Severe neutropenia, ANC of 0 R pinna cellilits responding to current empiric abx Fever - resolved bl clx not obtained REC's: cont vanco, cefepime for now plan to switch to po medx on tuesday if cont to improve (likley to levaquine, doxycyline) anticipate at least 14 days of total abx treatment (longer if no resolution by completing tx) Discussed Condition With pt Roseann Ham MD May 21, 2017 15:19
[2017-05-21] MEDS: VANCOMYCIN 1,000 MG/NS 250 ML IV SCH ×2 (17:48)
[2017-05-21] MEDS: ACETAMINOPHEN 325 MG TAB PO SCH (19:46)
[2017-05-21] MEDS: diphenhydrAMINE HCL 50 MG CAP PO SCH (19:46)
[2017-05-21] MEDS: methylPREDNISolone SOD SUCC 40 MG/1 ML VIAL IV SCH (19:47)
[2017-05-21] MEDS: [UNRECOGNIZED DRUG - REMARK] IV SCH (21:12)
[2017-05-22] VITALS (8 sets, daily range): BP systolic 133–150; BP diastolic 64–92; PULSE 59–66; RESP 16–20; TEMP 97–97.9; O2SAT 95–98
[2017-05-22] MEDS: CEFEPIME INJ 2,000 MG in SODIUM CHLORIDE 0.9% INJ 100 ML IV SCH ×2 (02:15→13:32)
[2017-05-22] MEDS: cycloSPORINE 25 MG CAP PO SCH ×2 (06:04→17:35)
[2017-05-22] MEDS: LEVOTHYROXINE SODIUM 50 MCG TAB PO SCH (06:04)
[2017-05-22] MEDS: cycloSPORINE 100 MG CAP PO SCH ×2 (06:04→17:36)
[2017-05-22] MEDS: SODIUM CHLOR 0.9% 1000 ML INJ 1,000 ML IV SCH ×2 (06:17→21:33)
[2017-05-22 07:04] LABS: HEMATOCRIT 23.4 % (35.0-46.0); MEAN CELL VOLUME 85.9 FL (80.0-100.0); MEAN CORPUSCULAR HEMOGLOBIN 30.1 PG (27.0-34.0); PLATELET COUNT 29 TH/MM3 (150-450); RED BLOOD COUNT 2.72 MIL/MM3 (4.00-5.30); RED CELL DISTRIBUTION WIDTH 13.6 % (11.6-17.2); WHITE BLOOD COUNT 0.2 TH/MM3 (4.0-11.0)
[2017-05-22 07:09] LABS: HEMO FLAGS AUTO DIFF
[2017-05-22 07:16] LABS: BICARBONATE 27.5 MEQ/L (21.0-32.0); POTASSIUM 4.5 MEQ/L (3.5-5.1)
[2017-05-22 08:05] LABS: PLATELET ESTIMATE SMEAR LOW (NORMAL); PLATELET MORPHOLOGY NORMAL (NORMAL); SCAN/DIFF FINAL DIFF MANUAL; WBC DIFF SAMPLE 20
[2017-05-22] MEDS: AMIODARONE 200 MG TAB PO SCH (08:22)
[2017-05-22] MEDS: SODIUM CHLORIDE 0.9% FLUSH 10 ML FLUSH IV FLUSH SCH ×2 (08:22→21:00)
[2017-05-22] MEDS: PRAVASTATIN SOD 10 MG TAB PO SCH (08:23)
[2017-05-22] MEDS: PANTOPRAZOLE SOD 40 MG DELAYED RELEASE TAB PO SCH ×2 (08:23→21:31)
[2017-05-22] MEDS: PATIENT OWN MEDICATION PO SCH (08:24)
[2017-05-22] MEDS: DOCUSATE SODIUM 50 MG/SENNA 8.6 MG TAB PO SCH ×2 (08:27→21:00)
--- NOTE | 2017-05-22 10:03 | PD.ONC.PN ---
Subjective Subjective Remarks Afebrile overnight. Patient resting in bed. Tolerated ATG yesterday without incident. Lip improving. right ear improving. No complaints. Objective Data Date Time Temp Pulse Resp B/P Pulse Ox O2 Delivery O2 Flow Rate FiO2 05/22/17 08:18 95 Room Air 05/22/17 08:17 97.0 64 18 144/68 95 05/22/17 04:00 97.2 64 16 138/92 97 05/22/17 00:15 59 05/22/17 00:00 97.7 65 16 141/65 96 05/21/17 21:14 98.4 64 20 145/67 05/21/17 20:00 64 05/21/17 20:00 98.1 101 17 112/74 96 05/21/17 15:30 98.3 67 20 116/65 96 05/21/17 11:50 97.1 64 20 137/67 96 05/22/17 05/22/17 05/22/17 07:00 15:00 23:00 Intake Total 240 ml Output Total 350 ml Balance -110 ml Result Diagram: 05/22/17 0600 05/22/17 0600 Laboratory Results Laboratory Tests Test 05/22/17 06:00 White Blood Count 0.2 TH/MM3 Red Blood Count 2.72 MIL/MM3 Hemoglobin 8.2 GM/DL Hematocrit 23.4 % Mean Corpuscular Volume 85.9 FL Mean Corpuscular Hemoglobin 30.1 PG Mean Corpuscular Hemoglobin 35.0 % Concent Red Cell Distribution Width 13.6 % Platelet Count 29 TH/MM3 Mean Platelet Volume 8.5 FL Neutrophils (%) (Auto) % Lymphocytes (%) (Auto) % Monocytes (%) (Auto) % Eosinophils (%) (Auto) % Basophils (%) (Auto) % Neutrophils # (Auto) TH/MM3 Lymphocytes # (Auto) TH/MM3 Monocytes # (Auto) TH/MM3 Eosinophils # (Auto) TH/MM3 Basophils # (Auto) TH/MM3 CBC Comment AUTO DIFF Differential Total Cells 20 Counted Lymphocytes % 100 % Neutrophils # (Manual) 0.0 TH/MM3 Differential Comment FINAL DIFF MANUAL Platelet Estimate LOW Platelet Morphology Comment NORMAL Sodium Level 143 MEQ/L Potassium Level 4.5 MEQ/L Chloride Level 111 MEQ/L Carbon Dioxide Level 27.5 MEQ/L Anion Gap 5 MEQ/L Blood Urea Nitrogen 26 MG/DL Creatinine 0.74 MG/DL Estimat Glomerular Filtration 75 ML/MIN Rate Random Glucose 142 MG/DL Calcium Level 8.6 MG/DL Administered Medications Medications (Trade) Dose Ordered Sig/José Route PRN Reason Start Time Stop Time Status Last Admin Dose Admin Sodium Chloride (NS Flush) 2 ml BID IV FLUSH 05/18/17 21:00 05/21/17 19:51 Amiodarone HCl (Cordarone) 200 mg DAILY PO 05/19/17 09:00 05/22/17 08:22 Levothyroxine Sodium (Synthroid) 50 mcg DAILY@0600 PO 05/19/17 06:00 05/22/17 06:04 Pantoprazole Sodium (Protonix) 40 mg BID PO 05/18/17 21:00 05/22/17 08:23 Pravastatin Sodium (Pravachol) 10 mg DAILY PO 05/19/17 09:00 05/22/17 08:23 Diphenhydramine HCl (Benadryl) 25 mg Q4H PRN PO FOR BLOOD PRODUCTS 05/19/17 01:30 05/19/17 02:07 Acetaminophen 650 mg 650 mg Q4H PRN PO FOR BLOOD PRODUCTS 05/19/17 01:30 05/19/17 02:08 Sodium Chloride (NS 1000 ml Inj) 1,000 ml @ 50 mls/hr Q20H IV 05/20/17 10:00 05/23/17 09:59 05/22/17 06:17 Cyclosporine (SandIMMUNE) 300 mg BID@ PO 05/20/17 06:00 06/02/17 18:01 05/22/17 06:04 Cyclosporine 50 mg 50 mg BID@ PO 05/20/17 06:00 06/02/17 18:01 05/22/17 06:04 Cefepime HCl 2000 mg/Sodium Chloride 100 ml @ 200 mls/hr Q12H IV 05/20/17 14:00 05/22/17 02:15 Vancomycin HCl/ Sodium Chloride (Vancomycin Inj/ NS 250 ml Inj) 250 ml @ 250 mls/hr Q24H IV 05/21/17 16:00 05/21/17 17:48 Patient Own Medication Promacta 50mg PO Da... DAILY PO 05/20/17 20:00 05/22/17 08:24 Non-Formulary Medication ATGAM 2500 MG DILUTED IN 500... Q24H IV 05/21/17 19:00 05/24/17 19:01 05/21/17 21:12 Acetaminophen (Tylenol) 650 mg Q24H PO 05/21/17 18:00 05/24/17 18:01 05/21/17 19:46 Diphenhydramine HCl (Benadryl) 50 mg Q24H PO 05/21/17 18:00 05/24/17 18:01 05/21/17 19:46 Methylprednisolone Sodium Succinate (SoluMEDROL INJ) 40 mg Q24H IV 05/21/17 18:00 05/24/17 18:01 05/21/17 19:47 Objective Remarks GENERAL: Pleasant female upright in bed in nad. 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 right pinna redness continuing to improve. HEAD: Normocephalic. lips with scabbing on upper lip--improving. EYES: No injection or drainage. NECK: Supple, trachea midline. CARDIOVASCULAR: +S1/S2 RESPIRATORY: Breath sounds equal bilaterally. No accessory muscle use. GASTROINTESTINAL: Abdomen soft, non-tender, nondistended. EXTREMITIES: No cyanosis NEUROLOGICAL: awake and alert, normal speech. moving all extremities. Assessment/Plan Problem List: (1) Pancytopenia Status: Acute Plan: -- +aplastic anemia -- bone marrow biopsy results show aplastic anemia --05/21/17: ATG and cyclosporine Day 1, had some rigors during ATG which resolved with demerol. Promacta started --05/22/17: continue ATG and cyclosporine. continue Promacta --05/23/17: continue ATG and cyclosporine Day 3. continue Promacta. (2) Cellulitis of ear Status: Acute Plan: -on Vanco and Cefepime --ID following. Assessment 82-year-old female with anemia brought in for immunosuppressive treatment Plan 1. continue ATG and cyclosporine 2. monitor CBC--no transfusion today 3. continue Vanco and Cefepime 4. continue Promacta Attending Statement The exam, history, and the medical decision-making described in the above note were completed with the assistance of the mid-level provider. I reviewed and agree with the findings presented. I attest that I had a [id number] encounter with the patient on the same day, and personally performed and documented my assessment and findings in the medical record. Patient seen and examined. She reports tolerating Atgam without difficulties yesterday specifically without chills or rigors. She denies febrile illness, overt bleeding, nausea vomiting or diarrhea. Agree with physical examination as documented above. Recommendations: Aplastic anemia: Continue Atgam for total of 4 doses. Monitor blood counts and this continue supportive transfusions. Continue empiric antibiotics for cellulitis of the right ear. Cecilia Hughes May 22, 2017 10:03 Estiven Perez MD May 22, 2017 10:44
--- NOTE | 2017-05-22 14:36 | HHI.PR ---
Subjective Interval History Alert, oriented, no pain from the right ear, no fever Review of Systems Constitutional Constitutional Remarks 10 systems reviewed otherwise negative Vitals/Results Intake & Output 05/21/17 05/21/17 05/22/17 15:00 23:00 07:00 Intake Total 941 ml 352 ml 240 ml Output Total 300 ml 350 ml Balance 941 ml 52 ml -110 ml Intake Oral 941 ml 240 ml 240 ml IV Total 112 ml Output Urine Total 300 ml 350 ml # Voids 1 # Bowel Movements 1 Vital Signs Vital Signs Date Time Temp Pulse Resp B/P Pulse Ox O2 Delivery O2 Flow Rate FiO2 05/22/17 12:58 97.5 66 20 133/64 97 05/22/17 08:18 95 Room Air 05/22/17 08:17 97.0 64 18 144/68 95 05/22/17 04:00 97.2 64 16 138/92 97 05/22/17 00:15 59 05/22/17 00:00 97.7 65 16 141/65 96 05/21/17 21:14 98.4 64 20 145/67 05/21/17 20:00 64 05/21/17 20:00 98.1 101 17 112/74 96 05/21/17 15:30 98.3 67 20 116/65 96 CBC/BMP: 05/22/17 0600 05/22/17 0600 Lab Results Laboratory Tests Test 05/22/17 06:00 White Blood Count 0.2 TH/MM3 Red Blood Count 2.72 MIL/MM3 Hemoglobin 8.2 GM/DL Hematocrit 23.4 % Mean Corpuscular Volume 85.9 FL Mean Corpuscular Hemoglobin 30.1 PG Mean Corpuscular Hemoglobin 35.0 % Concent Red Cell Distribution Width 13.6 % Platelet Count 29 TH/MM3 Mean Platelet Volume 8.5 FL Neutrophils (%) (Auto) % Lymphocytes (%) (Auto) % Monocytes (%) (Auto) % Eosinophils (%) (Auto) % Basophils (%) (Auto) % Neutrophils # (Auto) TH/MM3 Lymphocytes # (Auto) TH/MM3 Monocytes # (Auto) TH/MM3 Eosinophils # (Auto) TH/MM3 Basophils # (Auto) TH/MM3 CBC Comment AUTO DIFF Differential Total Cells 20 Counted Lymphocytes % 100 % Neutrophils # (Manual) 0.0 TH/MM3 Differential Comment FINAL DIFF MANUAL Platelet Estimate LOW Platelet Morphology Comment NORMAL Sodium Level 143 MEQ/L Potassium Level 4.5 MEQ/L Chloride Level 111 MEQ/L Carbon Dioxide Level 27.5 MEQ/L Anion Gap 5 MEQ/L Blood Urea Nitrogen 26 MG/DL Creatinine 0.74 MG/DL Estimat Glomerular Filtration 75 ML/MIN Rate Random Glucose 142 MG/DL Calcium Level 8.6 MG/DL Physical Exam General General Appearance: Well Developed, Comfortable Eyes Eye Exam: Pupils Reactive Ears & Nose Ears & Nose Exam: Nasal Mucosa [place] Throat Throat Exam: Oral Mucosa [place] & Moist Neck Neck Exam: Trachea Midline Pulmonary Resp Exam: Clear Bilaterally, Breath Sounds Equal, No Distress Cardiology CV Exam: Good Perfusion, Irregular Gastrointestinal/Abdomen GI Exam: Soft, Non-Tender, Bowel Sounds Present Musculoskeletal MS Exam: Normal Tone Integumentary Skin Exam: Warm, Dry (is a) Skin Remarks Extensive ecchymoses Neurologic Neuro Exam: Alert, Awake, Oriented, Speech Clear, 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, Rubber Turner Equal, 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 Psychiatric Psych Exam: Appropriate Responses VTE Prophylaxis VTE Remarks anticoagulation is contraindicated, both chemical (because of risk of bleeding )and mechanical (because of risk of bruising/ecchymoses/bleeding ) PUD Prophylasis PUD Prophylaxis: Protonix Assessment/Plan Assessment/Plan Assessment Right external ear cellulitis Leukopenia, absolute neutrophil count now is 0 Symptomatic anemia, Improved after transfusion Severe profound symptomatic thrombocytopenia, given platelets again today Uncontrolled aplastic anemia Acellular bone marrow per biopsy report Status post bone marrow biopsy 05/18/17 Recent diagnosis of atrial fibrillation Recent diagnosis of gastric erosions Management Antibiotics ATG and cyclosporine Telemetry Follow complete blood count Follow electrolytes and replace as needed Continue proton pump inhibitor Discussed with patient Discussed with nurse Infectious disease and oncology following 40 minutes spent Elan Espinoza MD May 22, 2017 14:36
[2017-05-22] MEDS: diphenhydrAMINE HCL 50 MG CAP PO SCH (17:33)
[2017-05-22] MEDS: VANCOMYCIN 1,000 MG/NS 250 ML IV SCH ×2 (17:33)
[2017-05-22] MEDS: ACETAMINOPHEN 325 MG TAB PO SCH (17:34)
[2017-05-22] MEDS: methylPREDNISolone SOD SUCC 40 MG/1 ML VIAL IV SCH (17:35)
[2017-05-22] MEDS: [UNRECOGNIZED DRUG - REMARK] IV SCH (18:28)
[2017-05-23] VITALS (8 sets, daily range): BP systolic 122–169; BP diastolic 62–78; PULSE 61–69; RESP 16–17; TEMP 96.8–98.5; O2SAT 94–97
[2017-05-23] MEDS: CEFEPIME INJ 2,000 MG in SODIUM CHLORIDE 0.9% INJ 100 ML IV SCH ×2 (02:06→13:08)
[2017-05-23] MEDS: cycloSPORINE 25 MG CAP PO SCH ×2 (06:08→17:10)
[2017-05-23] MEDS: cycloSPORINE 100 MG CAP PO SCH ×2 (06:08→17:10)
[2017-05-23] MEDS: LEVOTHYROXINE SODIUM 50 MCG TAB PO SCH (06:09)
[2017-05-23] MEDS: AMIODARONE 200 MG TAB PO SCH (08:40)
[2017-05-23] MEDS: PRAVASTATIN SOD 10 MG TAB PO SCH (08:41)
[2017-05-23] MEDS: PANTOPRAZOLE SOD 40 MG DELAYED RELEASE TAB PO SCH ×2 (08:41→20:32)
[2017-05-23] MEDS: PATIENT OWN MEDICATION PO SCH (08:42)
[2017-05-23] MEDS: DOCUSATE SODIUM 50 MG/SENNA 8.6 MG TAB PO SCH ×2 (08:59→20:32)
[2017-05-23] MEDS: SODIUM CHLORIDE 0.9% FLUSH 10 ML FLUSH IV FLUSH SCH ×2 (09:00→20:34)
[2017-05-23 09:57] LABS: HEMATOCRIT 22.7 % (35.0-46.0); MEAN CELL VOLUME 84.6 FL (80.0-100.0); MEAN CORPUSCULAR HEMOGLOBIN 29.1 PG (27.0-34.0); MEAN CORPUSCULAR HGB CONC 34.5 % (32.0-36.0); RED BLOOD COUNT 2.69 MIL/MM3 (4.00-5.30); RED CELL DISTRIBUTION WIDTH 13.7 % (11.6-17.2); WHITE BLOOD COUNT 0.3 TH/MM3 (4.0-11.0)
[2017-05-23 10:12] LABS: HEMO FLAGS AUTO DIFF
[2017-05-23 10:14] LABS: PLATELET COUNT 19 TH/MM3 (150-450)
[2017-05-23 10:26] LABS: BICARBONATE 25.7 MEQ/L (21.0-32.0); POTASSIUM 4.3 MEQ/L (3.5-5.1)
[2017-05-23 10:39] LABS: PLATELET ESTIMATE SMEAR RARE (NORMAL); PLATELET MORPHOLOGY NORMAL (NORMAL); SCAN/DIFF FINAL DIFF MANUAL; WBC DIFF SAMPLE 35
--- NOTE | 2017-05-23 11:45 | PD.ONC.PN ---
Subjective Subjective Remarks Afebrile overnight. Tolerated ATG infusion last night. No rigors or reaction. Feeling well today. Right ear cellulitis improving. She has noticed a few bruises on her extremities, but otherwise has no complaints. Objective Data Date Time Temp Pulse Resp B/P Pulse Ox O2 Delivery O2 Flow Rate FiO2 05/23/17 08:00 97.7 64 16 169/78 95 05/23/17 04:00 96.8 62 16 148/63 96 05/23/17 00:05 61 05/23/17 00:00 96.8 65 17 149/72 95 05/22/17 20:06 61 05/22/17 20:00 97.9 63 16 150/74 95 05/22/17 16:00 97.8 66 20 148/70 98 05/22/17 12:58 97.5 66 20 133/64 97 05/23/17 05/23/17 05/23/17 07:00 15:00 23:00 Intake Total 480 ml Output Total 850 ml 400 ml Balance -370 ml -400 ml Result Diagram: 05/23/17 0613 05/23/17 0613 Laboratory Results Laboratory Tests Test 05/23/17 06:13 White Blood Count 0.3 TH/MM3 Red Blood Count 2.69 MIL/MM3 Hemoglobin 7.8 GM/DL Hematocrit 22.7 % Mean Corpuscular Volume 84.6 FL Mean Corpuscular Hemoglobin 29.1 PG Mean Corpuscular Hemoglobin 34.5 % Concent Red Cell Distribution Width 13.7 % Platelet Count 19 TH/MM3 Mean Platelet Volume 8.6 FL Neutrophils (%) (Auto) % Lymphocytes (%) (Auto) % Monocytes (%) (Auto) % Eosinophils (%) (Auto) % Basophils (%) (Auto) % Neutrophils # (Auto) TH/MM3 Lymphocytes # (Auto) TH/MM3 Monocytes # (Auto) TH/MM3 Eosinophils # (Auto) TH/MM3 Basophils # (Auto) TH/MM3 CBC Comment AUTO DIFF Differential Total Cells 35 Counted Lymphocytes % 97 % Monocytes % 3 % Neutrophils # (Manual) 0.0 TH/MM3 Differential Comment FINAL DIFF MANUAL Platelet Estimate RARE Platelet Morphology Comment NORMAL Red Cell Morphology Comment NORMAL Sodium Level 143 MEQ/L Potassium Level 4.3 MEQ/L Chloride Level 110 MEQ/L Carbon Dioxide Level 25.7 MEQ/L Anion Gap 7 MEQ/L Blood Urea Nitrogen 22 MG/DL Creatinine 0.63 MG/DL Estimat Glomerular Filtration 90 ML/MIN Rate Random Glucose 126 MG/DL Calcium Level 8.5 MG/DL Administered Medications Medications (Trade) Dose Ordered Sig/José Route PRN Reason Start Time Stop Time Status Last Admin Dose Admin Sodium Chloride (NS Flush) 2 ml BID IV FLUSH 05/18/17 21:00 05/21/17 19:51 Amiodarone HCl (Cordarone) 200 mg DAILY PO 05/19/17 09:00 05/23/17 08:40 Levothyroxine Sodium (Synthroid) 50 mcg DAILY@0600 PO 05/19/17 06:00 05/23/17 06:09 Pantoprazole Sodium (Protonix) 40 mg BID PO 05/18/17 21:00 05/23/17 08:41 Pravastatin Sodium (Pravachol) 10 mg DAILY PO 05/19/17 09:00 05/23/17 08:41 Diphenhydramine HCl (Benadryl) 25 mg Q4H PRN PO FOR BLOOD PRODUCTS 05/19/17 01:30 05/19/17 02:07 Acetaminophen (Tylenol) 650 mg Q4H PRN PO FOR BLOOD PRODUCTS 05/19/17 01:30 05/19/17 02:08 Cyclosporine (SandIMMUNE) 300 mg BID@ PO 05/20/17 06:00 06/02/17 18:01 05/23/17 06:08 Cyclosporine 50 mg 50 mg BID@,18 PO 05/20/17 06:00 06/02/17 18:01 05/23/17 06:08 Cefepime HCl 2000 mg/Sodium Chloride 100 ml @ 200 mls/hr Q12H IV 05/20/17 14:00 05/23/17 02:06 Vancomycin HCl/ Sodium Chloride (Vancomycin Inj/ NS 250 ml Inj) 250 ml @ 250 mls/hr Q24H IV 05/21/17 16:00 05/22/17 17:33 Patient Own Medication Promacta 50mg PO Da... DAILY PO 05/20/17 20:00 05/23/17 08:42 Non-Formulary Medication ATGAM 2500 MG DILUTED IN 500... Q24H IV 05/21/17 19:00 05/24/17 19:01 05/22/17 18:28 Acetaminophen (Tylenol) 650 mg Q24H PO 05/21/17 18:00 05/24/17 18:01 05/22/17 17:34 Diphenhydramine HCl (Benadryl) 50 mg Q24H PO 05/21/17 18:00 05/24/17 18:01 05/22/17 17:33 Methylprednisolone Sodium Succinate (SoluMEDROL INJ) 40 mg Q24H IV 05/21/17 18:00 05/24/17 18:01 05/22/17 17:35 Objective Remarks GENERAL: Pleasant, bright and sharp female upright in bed in nad. 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 right pinna with light erythema and scab at superior portion. HEAD: Normocephalic. improving scab on lip. EYES: No injection or drainage. NECK: Supple, trachea midline. CARDIOVASCULAR: +S1/S2 RESPIRATORY: Breath sounds equal bilaterally. No accessory muscle use. GASTROINTESTINAL: Abdomen soft, non-tender, nondistended. EXTREMITIES: No cyanosis NEUROLOGICAL: aox3, normal speech. moving all extremities. Assessment/Plan Problem List: (1) Pancytopenia Status: Acute Plan: -- +aplastic anemia -- bone marrow biopsy results show aplastic anemia --05/21/17: ATG and cyclosporine Day 1, had some rigors during ATG which resolved with demerol. Promacta started --05/22/17: continue ATG and cyclosporine. continue Promacta --05/23/17: continue ATG and cyclosporine Day 3. continue Promacta. (2) Cellulitis of ear Status: Acute Plan: -on Vanco and Cefepime --ID following and may switch to PO abx today. Assessment 82-year-old female with anemia brought in for immunosuppressive treatment Plan 1. last day of ATG and cyclosporine tomorrow 2. monitor CBC--no transfusion today 3. continue abx per ID 4. continue Promacta Attending Statement The exam, history, and the medical decision-making described in the above note were completed with the assistance of the mid-level provider. I reviewed and agree with the findings presented. I attest that I had a [id number] encounter with the patient on the same day, and personally performed and documented my assessment and findings in the medical record. Pt seen and examined. Noted infusion time longer in light of pt's reaction on Day 1. Tolerated treatment well. Still pancytopenic, afebrile, tolerating Promacta. R ear still dusky color, abx continue. Cecilia Hughes May 23, 2017 11:45 Luna Marie MD May 23, 2017 17:53 Luna Marie MD May 23, 2017 17:53
[2017-05-23] MEDS ORDERED: PHARMACY ORDERED LAB ONE (15:45)
--- NOTE | 2017-05-23 15:55 | HHI.PR ---
Subjective Interval History Alert, oriented, patient denied any complaints, blood pressure has been elevated earlier, patient received clonidine Review of Systems Constitutional Constitutional Remarks 10 systems reviewed otherwise negative Vitals/Results Intake & Output 05/22/17 05/22/17 05/23/17 15:00 23:00 07:00 Intake Total 240 ml 1047 ml 480 ml Output Total 300 ml 650 ml 850 ml Balance -60 ml 397 ml -370 ml Intake Oral 240 ml 480 ml 480 ml IV Total 567 ml Output Urine Total 300 ml 650 ml 850 ml # Voids 2 # Bowel Movements 1 Vital Signs Vital Signs Date Time Temp Pulse Resp B/P Pulse Ox O2 Delivery O2 Flow Rate FiO2 05/23/17 12:00 98.3 68 16 149/68 95 05/23/17 08:00 97.7 64 16 169/78 95 05/23/17 04:00 96.8 62 16 148/63 96 05/23/17 00:05 61 05/23/17 00:00 96.8 65 17 149/72 95 05/22/17 20:06 61 05/22/17 20:00 97.9 63 16 150/74 95 05/22/17 16:00 97.8 66 20 148/70 98 CBC/BMP: 05/23/17 0613 05/23/17 0613 Lab Results Laboratory Tests Test 05/23/17 06:13 White Blood Count 0.3 TH/MM3 Red Blood Count 2.69 MIL/MM3 Hemoglobin 7.8 GM/DL Hematocrit 22.7 % Mean Corpuscular Volume 84.6 FL Mean Corpuscular Hemoglobin 29.1 PG Mean Corpuscular Hemoglobin 34.5 % Concent Red Cell Distribution Width 13.7 % Platelet Count 19 TH/MM3 Mean Platelet Volume 8.6 FL Neutrophils (%) (Auto) % Lymphocytes (%) (Auto) % Monocytes (%) (Auto) % Eosinophils (%) (Auto) % Basophils (%) (Auto) % Neutrophils # (Auto) TH/MM3 Lymphocytes # (Auto) TH/MM3 Monocytes # (Auto) TH/MM3 Eosinophils # (Auto) TH/MM3 Basophils # (Auto) TH/MM3 CBC Comment AUTO DIFF Differential Total Cells 35 Counted Lymphocytes % 97 % Monocytes % 3 % Neutrophils # (Manual) 0.0 TH/MM3 Differential Comment FINAL DIFF MANUAL Platelet Estimate RARE Platelet Morphology Comment NORMAL Red Cell Morphology Comment NORMAL Sodium Level 143 MEQ/L Potassium Level 4.3 MEQ/L Chloride Level 110 MEQ/L Carbon Dioxide Level 25.7 MEQ/L Anion Gap 7 MEQ/L Blood Urea Nitrogen 22 MG/DL Creatinine 0.63 MG/DL Estimat Glomerular Filtration 90 ML/MIN Rate Random Glucose 126 MG/DL Calcium Level 8.5 MG/DL Physical Exam General General Appearance: Well Developed, Comfortable Eyes Eye Exam: Pupils Reactive Ears & Nose Ears & Nose Exam: Nasal Mucosa [place] Ears & Nose Remarks Right external ear cellulitis Throat Throat Exam: Oral Mucosa [place] & Moist Neck Neck Exam: Trachea Midline Pulmonary Resp Exam: Clear Bilaterally, Breath Sounds Equal, No Distress Cardiology CV Exam: Good Perfusion, Irregular Gastrointestinal/Abdomen GI Exam: Soft, Non-Tender, Bowel Sounds Present Musculoskeletal MS Exam: Normal Tone Integumentary Skin Exam: Warm, Dry (is a) Skin Remarks Extensive ecchymoses Neurologic Neuro Exam: Alert, Awake, Oriented, Speech Clear, 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, Customs [employer] Immigration Officer Equal, 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 Psychiatric Psych Exam: Appropriate Responses VTE Prophylaxis VTE Remarks anticoagulation is contraindicated, both chemical (because of risk of bleeding )and mechanical (because of risk of bruising/ecchymoses/bleeding ) PUD Prophylasis PUD Prophylaxis: Protonix Assessment/Plan Assessment/Plan Assessment Suboptimal blood pressure, a little too high Borderline hypokalemia Right external ear cellulitis Leukopenia, absolute neutrophil count now is 0 Symptomatic anemia, Improved after transfusion Severe profound symptomatic thrombocytopenia, given platelets again today Uncontrolled aplastic anemia Acellular bone marrow per biopsy report Status post bone marrow biopsy 05/18/17 Recent diagnosis of atrial fibrillation Recent diagnosis of gastric erosions Management Lasix 20 mg twice a day Replace potassium Antibiotics ATG and cyclosporine Telemetry Follow complete blood count Follow electrolytes and replace as needed Continue proton pump inhibitor Discussed with patient Discussed with nurse Infectious disease and oncology following 40 minutes spent Elan Espinoza MD May 23, 2017 15:55
[2017-05-23] MEDS: diphenhydrAMINE HCL 50 MG CAP PO SCH (17:09)
[2017-05-23] MEDS: ACETAMINOPHEN 325 MG TAB PO SCH (17:09)
[2017-05-23] MEDS: FUROSEMIDE 20 MG TAB PO SCH (17:10)
[2017-05-23] MEDS: VANCOMYCIN 1,000 MG/NS 250 ML IV SCH ×2 (17:12)
[2017-05-23] MEDS: methylPREDNISolone SOD SUCC 40 MG/1 ML VIAL IV SCH (17:12)
[2017-05-23] MEDS: [UNRECOGNIZED DRUG - REMARK] IV SCH (18:21)
[2017-05-24] VITALS (8 sets, daily range): BP systolic 118–163; BP diastolic 59–88; PULSE 61–75; RESP 16–20; TEMP 93.7–98.7; O2SAT 94–96
[2017-05-24] MEDS: CEFEPIME INJ 2,000 MG in SODIUM CHLORIDE 0.9% INJ 100 ML IV SCH ×2 (01:54→13:47)
[2017-05-24] MEDS: LEVOTHYROXINE SODIUM 50 MCG TAB PO SCH (05:33)
[2017-05-24] MEDS: cycloSPORINE 100 MG CAP PO SCH ×2 (05:33→17:42)
[2017-05-24] MEDS: cycloSPORINE 25 MG CAP PO SCH ×2 (05:34→17:41)
[2017-05-24] MEDS: VANCOMYCIN 1,000 MG/NS 250 ML IV SCH ×4 (05:38→16:39)
[2017-05-24] MEDS: PANTOPRAZOLE SOD 40 MG DELAYED RELEASE TAB PO SCH ×2 (09:00→22:10)
[2017-05-24] MEDS: AMIODARONE 200 MG TAB PO SCH (09:37)
[2017-05-24] MEDS: DOCUSATE SODIUM 50 MG/SENNA 8.6 MG TAB PO SCH ×2 (09:37→22:10)
[2017-05-24] MEDS: PRAVASTATIN SOD 10 MG TAB PO SCH (09:37)
[2017-05-24] MEDS: FUROSEMIDE 20 MG TAB PO SCH ×2 (09:38→17:40)
[2017-05-24] MEDS: PATIENT OWN MEDICATION PO SCH (09:40)
[2017-05-24] MEDS ORDERED: PILL SPLITTER OTHER PRN (10:00)
[2017-05-24] MEDS: SODIUM CHLORIDE 0.9% FLUSH 10 ML FLUSH IV FLUSH SCH ×2 (10:56→22:10)
[2017-05-24 13:06] LABS: HEMATOCRIT 23.3 % (35.0-46.0); MEAN CELL VOLUME 84.4 FL (80.0-100.0); MEAN CORPUSCULAR HEMOGLOBIN 28.6 PG (27.0-34.0); MEAN CORPUSCULAR HGB CONC 33.9 % (32.0-36.0); RED BLOOD COUNT 2.76 MIL/MM3 (4.00-5.30); RED CELL DISTRIBUTION WIDTH 13.6 % (11.6-17.2); WHITE BLOOD COUNT 0.5 TH/MM3 (4.0-11.0)
[2017-05-24 13:08] LABS: HEMO FLAGS AUTO DIFF
[2017-05-24 13:09] LABS: PLATELET COUNT 12 TH/MM3 (150-450)
--- NOTE | 2017-05-24 13:21 | PD.ONC.PN ---
Subjective Subjective Remarks Afebrile overnight. No complaints. No nausea or vomiting. Wants to know how much longer she will need to be in the hospital. Objective Data Date Time Temp Pulse Resp B/P Pulse Ox O2 Delivery O2 Flow Rate FiO2 05/24/17 12:00 93.7 70 18 155/74 94 05/24/17 08:00 98.3 68 18 163/88 94 05/24/17 04:45 97.9 67 18 154/74 95 05/24/17 04:09 61 05/24/17 00:13 62 05/24/17 00:00 96.8 62 16 118/59 96 05/23/17 20:30 97.4 69 16 122/62 94 05/23/17 20:06 62 05/23/17 16:00 98.5 65 16 130/64 97 05/24/17 05/24/17 05/24/17 07:00 15:00 23:00 Intake Total 240 ml Output Total 500 ml Balance -260 ml Result Diagram: 05/24/17 1225 05/24/17 0545 Laboratory Results Laboratory Tests Test 05/23/17 05/24/17 05/24/17 15:51 05:45 12:25 Vancomycin Level Trough 5.4 MCG/ML Creatinine 0.63 MG/DL Estimat Glomerular Filtration 90 ML/MIN Rate White Blood Count 0.5 TH/MM3 Red Blood Count 2.76 MIL/MM3 Hemoglobin 7.9 GM/DL Hematocrit 23.3 % Mean Corpuscular Volume 84.4 FL Mean Corpuscular Hemoglobin 28.6 PG Mean Corpuscular Hemoglobin 33.9 % Concent Red Cell Distribution Width 13.6 % Platelet Count 12 TH/MM3 Mean Platelet Volume 8.2 FL Neutrophils (%) (Auto) % Lymphocytes (%) (Auto) % Monocytes (%) (Auto) % Eosinophils (%) (Auto) % Basophils (%) (Auto) % Neutrophils # (Auto) TH/MM3 Lymphocytes # (Auto) TH/MM3 Monocytes # (Auto) TH/MM3 Eosinophils # (Auto) TH/MM3 Basophils # (Auto) TH/MM3 CBC Comment AUTO DIFF Administered Medications Medications (Trade) Dose Ordered Sig/José Route PRN Reason Start Time Stop Time Status Last Admin Dose Admin Sodium Chloride (NS Flush) 2 ml BID IV FLUSH 05/18/17 21:00 05/24/17 10:56 Senna/Docusate Sodium (Rosalinda-Colace) 1 tab BID PO 05/18/17 21:00 05/24/17 09:37 Amiodarone HCl (Cordarone) 200 mg DAILY PO 05/19/17 09:00 05/24/17 09:37 Levothyroxine Sodium (Synthroid) 50 mcg DAILY@0600 PO 05/19/17 06:00 05/24/17 05:33 Pantoprazole Sodium (Protonix) 40 mg BID PO 05/18/17 21:00 05/24/17 09:00 Pravastatin Sodium (Pravachol) 10 mg DAILY PO 05/19/17 09:00 05/24/17 09:37 Diphenhydramine HCl (Benadryl) 25 mg Q4H PRN PO FOR BLOOD PRODUCTS 05/19/17 01:30 05/19/17 02:07 Acetaminophen (Tylenol) 650 mg Q4H PRN PO FOR BLOOD PRODUCTS 05/19/17 01:30 05/19/17 02:08 Cyclosporine (SandIMMUNE) 300 mg BID@ PO 05/20/17 06:00 06/02/17 18:01 05/24/17 05:33 Cyclosporine (SandIMMUNE) 50 mg BID@,18 PO 05/20/17 06:00 06/02/17 18:01 05/24/17 05:34 Methylprednisolone 40 mg 40 mg DAILY PO 05/24/17 09:00 06/01/17 09:01 05/24/17 10:55 Cefepime HCl/ Sodium Chloride (Maxipime Inj/NS Inj) 100 ml @ 200 mls/hr Q12H IV 05/20/17 14:00 05/24/17 01:54 Patient Own Medication Promacta 50mg PO Da... DAILY PO 05/20/17 20:00 05/24/17 09:40 Non-Formulary Medication ATGAM 2500 MG DILUTED IN 500... Q24H IV 05/21/17 19:00 05/24/17 19:01 05/23/17 18:21 Acetaminophen (Tylenol) 650 mg Q24H PO 05/21/17 18:00 05/24/17 18:01 05/23/17 17:09 Diphenhydramine HCl (Benadryl) 50 mg Q24H PO 05/21/17 18:00 05/24/17 18:01 05/23/17 17:09 Methylprednisolone Sodium Succinate (SoluMEDROL INJ) 40 mg Q24H IV 05/21/17 18:00 05/24/17 18:01 05/23/17 17:12 Furosemide 20 mg 20 mg BID@09,18 PO 05/23/17 18:00 05/24/17 09:38 Vancomycin HCl/ Sodium Chloride (Vancomycin Inj/ NS 250 ml Inj) 250 ml @ 250 mls/hr Q12H IV 05/24/17 05:00 05/24/17 05:38 Objective Remarks GENERAL: Pleasant female upright in bed in nad. 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 right pinna with persistent erythema and scabbing. HEAD: Normocephalic. improving scab on lip. EYES: No injection or drainage. NECK: Supple, trachea midline. CARDIOVASCULAR: +S1/S2 RESPIRATORY: Breath sounds equal bilaterally. No accessory muscle use. GASTROINTESTINAL: Abdomen soft, non-tender, nondistended. EXTREMITIES: No cyanosis NEUROLOGICAL: awake and alert. normal speech. moving all extremities. Assessment/Plan Problem List: (1) Pancytopenia Status: Acute Plan: -- +aplastic anemia -- bone marrow biopsy results show aplastic anemia --05/21/17: ATG and cyclosporine Day 1, had some rigors during ATG which resolved with demerol. Promacta started --05/22/17: continue ATG and cyclosporine. continue Promacta --05/23/17: continue ATG and cyclosporine Day 3. continue Promacta. --05/24/17: last day of ATG tonight. continue Promacta (2) Cellulitis of ear Status: Acute Plan: -on Vanco and Cefepime --ID following Assessment 82-year-old female with anemia brought in for immunosuppressive treatment Plan 1. monitor CBC 2. continue ATG and cyclosporine. 3. continue antibiotics. Attending Statement The exam, history, and the medical decision-making described in the above note were completed with the assistance of the mid-level provider. I reviewed and agree with the findings presented. I attest that I had a [id number] encounter with the patient on the same day, and personally performed and documented my assessment and findings in the medical record. Pt seen and examined. Continue to have R ear lobe erythema, area of ulceration, already on abx. R upper lip with ulceration. Multiple wet purpuric lesion in mouth. Discussed GCSF- start because pt has infection despite abx therapy, ANC =0. Promacta samples available, 3 additional bottles, plan to optimize dose per clinical trial to Promacta 150mg daily. Continue supportive tx. Methylprednisolone oral and cyclosporine BID continue. Monitor for serum sickness rash. Discussed plan to provide support until signs of recovery of bone marrow, ANC > 1500, transfusion for hgb <8.0 or symptoms and platelet <15K or symptoms. Cecilia Hughes May 24, 2017 13:21 Luna Marie MD May 24, 2017 19:04
[2017-05-24 13:35] LABS: WBC DIFF SAMPLE 25
[2017-05-24 13:36] LABS: PLATELET ESTIMATE SMEAR NORMAL (NORMAL); PLATELET MORPHOLOGY NORMAL (NORMAL); SCAN/DIFF FINAL DIFF MANUAL
--- NOTE | 2017-05-24 16:20 | HHI.PR ---
Subjective Interval History Alert, oriented, pain in the right ear has improved, no complaints otherwise Review of Systems Constitutional Constitutional Remarks 10 systems reviewed otherwise negative Vitals/Results Intake & Output 05/23/17 05/23/17 05/24/17 15:00 23:00 07:00 Intake Total 960 ml 818 ml Output Total 400 ml 400 ml Balance 560 ml 418 ml Intake Oral 960 ml IV Total 818 ml Output Urine Total 400 ml 400 ml # Voids 3 # Bowel Movements 1 Vital Signs Vital Signs Date Time Temp Pulse Resp B/P Pulse Ox O2 Delivery O2 Flow Rate FiO2 05/24/17 12:00 93.7 70 18 155/74 94 05/24/17 08:00 98.3 68 18 163/88 94 05/24/17 04:45 97.9 67 18 154/74 95 05/24/17 04:09 61 05/24/17 00:13 62 05/24/17 00:00 96.8 62 16 118/59 96 05/23/17 20:30 97.4 69 16 122/62 94 05/23/17 20:06 62 CBC/BMP: 05/24/17 1225 05/24/17 0545 Lab Results Laboratory Tests Test 05/24/17 05/24/17 05:45 12:25 Creatinine 0.63 MG/DL Estimat Glomerular Filtration 90 ML/MIN Rate White Blood Count 0.5 TH/MM3 Red Blood Count 2.76 MIL/MM3 Hemoglobin 7.9 GM/DL Hematocrit 23.3 % Mean Corpuscular Volume 84.4 FL Mean Corpuscular Hemoglobin 28.6 PG Mean Corpuscular Hemoglobin 33.9 % Concent Red Cell Distribution Width 13.6 % Platelet Count 12 TH/MM3 Mean Platelet Volume 8.2 FL Neutrophils (%) (Auto) % Lymphocytes (%) (Auto) % Monocytes (%) (Auto) % Eosinophils (%) (Auto) % Basophils (%) (Auto) % Neutrophils # (Auto) TH/MM3 Lymphocytes # (Auto) TH/MM3 Monocytes # (Auto) TH/MM3 Eosinophils # (Auto) TH/MM3 Basophils # (Auto) TH/MM3 CBC Comment AUTO DIFF Differential Total Cells 25 Counted Lymphocytes % 100 % Differential Comment FINAL DIFF MANUAL Platelet Estimate NORMAL Platelet Morphology Comment NORMAL Red Cell Morphology Comment NORMAL Physical Exam General General Appearance: Well Developed, Comfortable Eyes Eye Exam: Pupils Reactive Ears & Nose Ears & Nose Exam: Nasal Mucosa [place] Ears & Nose Remarks Right external ear cellulitis Throat Throat Exam: Oral Mucosa [place] & Moist Neck Neck Exam: Trachea Midline Pulmonary Resp Exam: Clear Bilaterally, Breath Sounds Equal, No Distress Cardiology CV Exam: Good Perfusion, Irregular Gastrointestinal/Abdomen GI Exam: Soft, Non-Tender, Bowel Sounds Present Musculoskeletal MS Exam: Normal Tone Integumentary Skin Exam: Warm, Dry (is a) Skin Remarks Extensive ecchymoses Neurologic Neuro Exam: Alert, Awake, Oriented, Speech Clear, 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, Metal Reed Tuner Equal, 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 Psychiatric Psych Exam: Appropriate Responses VTE Prophylaxis VTE Remarks anticoagulation is contraindicated, both chemical (because of risk of bleeding )and mechanical (because of risk of bruising/ecchymoses/bleeding ) PUD Prophylasis PUD Prophylaxis: Protonix Assessment/Plan Assessment/Plan Assessment Elevated blood pressure, Right external ear cellulitis, improving Leukopenia, absolute neutrophil count is still 0 Symptomatic anemia, Improved after transfusion Severe profound symptomatic thrombocytopenia, given platelets again today Uncontrolled aplastic anemia Acellular bone marrow per biopsy report Status post bone marrow biopsy 05/18/17 Recent diagnosis of atrial fibrillation Recent diagnosis of gastric erosions Management Lisinopril for blood pressure control Lasix 20 mg twice a day Replace potassium as needed Antibiotics ATG and cyclosporine Telemetry Follow complete blood count Follow electrolytes and replace as needed Continue proton pump inhibitor Discussed with patient Discussed with nurse Infectious disease and oncology following 40 minutes spent Elan Espinoza MD May 24, 2017 16:20
[2017-05-24] MEDS: ACETAMINOPHEN 325 MG TAB PO SCH (17:41)
[2017-05-24] MEDS: diphenhydrAMINE HCL 50 MG CAP PO SCH (17:41)
[2017-05-24] MEDS: FILGRASTIM INJ 300 MCG in DEXTROSE 5% IN WATER INJ 24 ML IV SCH ×2 (22:12)
[2017-05-25] VITALS (10 sets, daily range): BP systolic 123–164; BP diastolic 58–84; PULSE 60–80; RESP 16–20; TEMP 96.9–98.8; O2SAT 94–96
[2017-05-25] MEDS: CEFEPIME INJ 2,000 MG in SODIUM CHLORIDE 0.9% INJ 100 ML IV SCH ×2 (02:12→15:36)
[2017-05-25] MEDS ORDERED: PHARMACY ORDERED LAB ONE (04:45)
[2017-05-25] MEDS: VANCOMYCIN 1,000 MG/NS 250 ML IV SCH ×4 (04:54→18:52)
[2017-05-25] MEDS: LEVOTHYROXINE SODIUM 50 MCG TAB PO SCH (04:57)
[2017-05-25] MEDS: cycloSPORINE 25 MG CAP PO SCH ×2 (04:57→18:52)
[2017-05-25] MEDS: cycloSPORINE 100 MG CAP PO SCH ×2 (04:57→18:52)
[2017-05-25 07:21] LABS: LYMPH % 98.4 % (9.0-44.0); LYMPHOCYTE # 1.3 TH/MM3 (1.0-4.8); MEAN CELL VOLUME 84.3 FL (80.0-100.0); MEAN CORPUSCULAR HEMOGLOBIN 28.7 PG (27.0-34.0); MONO % 0.7 % (0.0-8.0); NEUT % 0.9 % (16.0-70.0); RED BLOOD COUNT 2.49 MIL/MM3 (4.00-5.30); RED CELL DISTRIBUTION WIDTH 13.7 % (11.6-17.2); WHITE BLOOD COUNT 1.3 TH/MM3 (4.0-11.0)
[2017-05-25 07:27] LABS: HEMO FLAGS AUTO DIFF
[2017-05-25 07:29] LABS: PLATELET COUNT 7 TH/MM3 (150-450)
[2017-05-25 07:49] LABS: BICARBONATE 30.3 MEQ/L (21.0-32.0); POTASSIUM 3.6 MEQ/L (3.5-5.1)
[2017-05-25] MEDS ORDERED: diphenhydrAMINE HCL 25 MG CAP PO PRN (08:15)
[2017-05-25] MEDS ORDERED: SODIUM CHLOR 0.9% 250 ML INJ 250 ML IV ONE (08:15)
[2017-05-25] MEDS ORDERED: ACETAMINOPHEN 325 MG TAB PO PRN (08:15)
[2017-05-25] MEDS ORDERED: PROMACTA 50 MG PO SCH ×2 (09:00)
[2017-05-25 10:00] LABS: PLATELET ESTIMATE SMEAR RARE (NORMAL); PLATELET MORPHOLOGY NORMAL (NORMAL); SCAN/DIFF FINAL DIFF MANUAL; WBC DIFF SAMPLE 100
[2017-05-25] MEDS: PANTOPRAZOLE SOD 40 MG DELAYED RELEASE TAB PO SCH ×2 (10:03→20:10)
[2017-05-25] MEDS: PRAVASTATIN SOD 10 MG TAB PO SCH (10:03)
[2017-05-25] MEDS: AMIODARONE 200 MG TAB PO SCH (10:03)
[2017-05-25] MEDS: DOCUSATE SODIUM 50 MG/SENNA 8.6 MG TAB PO SCH ×2 (10:03→20:10)
[2017-05-25] MEDS: FUROSEMIDE 20 MG TAB PO SCH ×2 (10:04→18:56)
[2017-05-25] MEDS: SODIUM CHLORIDE 0.9% FLUSH 10 ML FLUSH IV FLUSH SCH ×2 (10:09→20:10)
[2017-05-25] MEDS: ACETAMINOPHEN 325 MG TAB PO PRN ×2 (11:10→15:36)
[2017-05-25] MEDS: diphenhydrAMINE HCL 25 MG CAP PO PRN ×2 (11:10→15:36)
--- NOTE | 2017-05-25 11:58 | HHI.PR ---
Subjective Interval History Alert, oriented, has a swelling in the upper lip, also right ear has not improved Review of Systems Constitutional Constitutional Remarks 10 systems reviewed otherwise negative Vitals/Results Intake & Output 05/24/17 05/24/17 05/25/17 15:00 23:00 07:00 Intake Total 240 ml 730 ml 650 ml Output Total 500 ml Balance -260 ml 730 ml 650 ml Intake Oral 240 ml 730 ml 250 ml IV Total 400 ml Output Urine Total 500 ml # Voids 5 1 # Bowel Movements 1 0 Vital Signs Vital Signs Date Time Temp Pulse Resp B/P Pulse Ox O2 Delivery O2 Flow Rate FiO2 05/25/17 08:00 67 05/25/17 08:00 97.9 69 16 160/84 94 05/25/17 04:00 97.8 64 16 154/62 96 05/25/17 04:00 62 05/25/17 00:00 60 05/25/17 00:00 97.8 62 16 151/67 96 05/24/17 20:00 61 05/24/17 20:00 97.2 65 16 161/74 95 05/24/17 16:00 98.7 75 20 124/61 95 05/24/17 12:00 93.7 70 18 155/74 94 CBC/BMP: 05/25/17 0600 05/25/17 0600 Lab Results Laboratory Tests Test 05/24/17 05/25/17 05/25/17 12:25 04:55 06:00 White Blood Count 0.5 TH/MM3 1.3 TH/MM3 Red Blood Count 2.76 MIL/MM3 2.49 MIL/MM3 Hemoglobin 7.9 GM/DL 7.1 GM/DL Hematocrit 23.3 % 21.0 % Mean Corpuscular Volume 84.4 FL 84.3 FL Mean Corpuscular Hemoglobin 28.6 PG 28.7 PG Mean Corpuscular Hemoglobin 33.9 % 34.0 % Concent Red Cell Distribution Width 13.6 % 13.7 % Platelet Count 12 TH/MM3 7 TH/MM3 Mean Platelet Volume 8.2 FL 8.4 FL Neutrophils (%) (Auto) % 0.9 % Lymphocytes (%) (Auto) % 98.4 % Monocytes (%) (Auto) % 0.7 % Eosinophils (%) (Auto) % 0.0 % Basophils (%) (Auto) % 0.0 % Neutrophils # (Auto) TH/MM3 0.0 TH/MM3 Lymphocytes # (Auto) TH/MM3 1.3 TH/MM3 Monocytes # (Auto) TH/MM3 0.0 TH/MM3 Eosinophils # (Auto) TH/MM3 0.0 TH/MM3 Basophils # (Auto) TH/MM3 0.0 TH/MM3 CBC Comment AUTO DIFF AUTO DIFF Differential Total Cells 25 100 Counted Lymphocytes % 100 % 99 % Differential Comment FINAL DIFF FINAL DIFF MANUAL MANUAL Platelet Estimate NORMAL RARE Platelet Morphology Comment NORMAL NORMAL Red Cell Morphology Comment NORMAL Vancomycin Level Trough 13.8 MCG/ML Monocytes % 1 % Neutrophils # (Manual) 0.0 TH/MM3 Sodium Level 141 MEQ/L Potassium Level 3.6 MEQ/L Chloride Level 106 MEQ/L Carbon Dioxide Level 30.3 MEQ/L Anion Gap 5 MEQ/L Blood Urea Nitrogen 19 MG/DL Creatinine 0.62 MG/DL Estimat Glomerular Filtration 92 ML/MIN Rate Random Glucose 89 MG/DL Calcium Level 8.6 MG/DL Physical Exam General General Appearance: Well Developed, Comfortable Eyes Eye Exam: Pupils Reactive Ears & Nose Ears & Nose Exam: Nasal Mucosa [place] Ears & Nose Remarks Right external ear cellulitis, swollen upper lip Throat Throat Exam: Oral Mucosa [place] & Moist Neck Neck Exam: Trachea Midline Pulmonary Resp Exam: Clear Bilaterally, Breath Sounds Equal, No Distress Cardiology CV Exam: Good Perfusion, Irregular Gastrointestinal/Abdomen GI Exam: Soft, Non-Tender, Bowel Sounds Present Musculoskeletal MS Exam: Normal Tone Integumentary Skin Exam: Warm, Dry (is a) Skin Remarks Extensive ecchymoses Neurologic Neuro Exam: Alert, Awake, Oriented, Speech Clear, 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, Photography Instructor Equal, 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 Psychiatric Psych Exam: Appropriate Responses VTE Prophylaxis VTE Remarks anticoagulation is contraindicated, both chemical (because of risk of bleeding )and mechanical (because of risk of bruising/ecchymoses/bleeding ) PUD Prophylasis PUD Prophylaxis: Protonix Assessment/Plan Assessment/Plan Assessment Edema to his upper lip, with ulceration Right external ear cellulitis, Leukopenia, absolute neutrophil count is still 0 Symptomatic anemia, Improved after transfusion Severe profound symptomatic thrombocytopenia, given platelets again today Uncontrolled aplastic anemia Acellular bone marrow per biopsy report Status post bone marrow biopsy 05/18/17 Recent diagnosis of atrial fibrillation Recent diagnosis of gastric erosions Management Intravenous Ganciclovir ordered Lisinopril for blood pressure control Lasix 20 mg twice a day Replace potassium as needed Antibiotics ATG and cyclosporine Telemetry Follow complete blood count Follow electrolytes and replace as needed Continue proton pump inhibitor Discussed with patient Discussed with nurse Infectious disease and oncology following Discussed with oncology team 35 minutes spent Elan Espinoza MD May 25, 2017 11:58
--- NOTE | 2017-05-25 12:08 | PD.ONC.PN ---
Subjective Subjective Remarks Afebrile overnight. Patient resting in bed in nad. States lip is bigger today. Ear was hurting bit last night. Objective Data Date Time Temp Pulse Resp B/P Pulse Ox O2 Delivery O2 Flow Rate FiO2 05/25/17 08:00 67 05/25/17 08:00 97.9 69 16 160/84 94 05/25/17 04:00 97.8 64 16 154/62 96 05/25/17 04:00 62 05/25/17 00:00 60 05/25/17 00:00 97.8 62 16 151/67 96 05/24/17 20:00 61 05/24/17 20:00 97.2 65 16 161/74 95 05/24/17 16:00 98.7 75 20 124/61 95 05/25/17 05/25/17 05/25/17 07:00 15:00 23:00 Intake Total 650 ml Balance 650 ml Result Diagram: 05/25/17 0600 05/25/17 0600 Laboratory Results Laboratory Tests Test 05/24/17 05/25/17 05/25/17 12:25 04:55 06:00 White Blood Count 0.5 TH/MM3 1.3 TH/MM3 Red Blood Count 2.76 MIL/MM3 2.49 MIL/MM3 Hemoglobin 7.9 GM/DL 7.1 GM/DL Hematocrit 23.3 % 21.0 % Mean Corpuscular Volume 84.4 FL 84.3 FL Mean Corpuscular Hemoglobin 28.6 PG 28.7 PG Mean Corpuscular Hemoglobin 33.9 % 34.0 % Concent Red Cell Distribution Width 13.6 % 13.7 % Platelet Count 12 TH/MM3 7 TH/MM3 Mean Platelet Volume 8.2 FL 8.4 FL Neutrophils (%) (Auto) % 0.9 % Lymphocytes (%) (Auto) % 98.4 % Monocytes (%) (Auto) % 0.7 % Eosinophils (%) (Auto) % 0.0 % Basophils (%) (Auto) % 0.0 % Neutrophils # (Auto) TH/MM3 0.0 TH/MM3 Lymphocytes # (Auto) TH/MM3 1.3 TH/MM3 Monocytes # (Auto) TH/MM3 0.0 TH/MM3 Eosinophils # (Auto) TH/MM3 0.0 TH/MM3 Basophils # (Auto) TH/MM3 0.0 TH/MM3 CBC Comment AUTO DIFF AUTO DIFF Differential Total Cells 25 100 Counted Lymphocytes % 100 % 99 % Differential Comment FINAL DIFF FINAL DIFF MANUAL MANUAL Platelet Estimate NORMAL RARE Platelet Morphology Comment NORMAL NORMAL Red Cell Morphology Comment NORMAL Vancomycin Level Trough 13.8 MCG/ML Monocytes % 1 % Neutrophils # (Manual) 0.0 TH/MM3 Sodium Level 141 MEQ/L Potassium Level 3.6 MEQ/L Chloride Level 106 MEQ/L Carbon Dioxide Level 30.3 MEQ/L Anion Gap 5 MEQ/L Blood Urea Nitrogen 19 MG/DL Creatinine 0.62 MG/DL Estimat Glomerular Filtration 92 ML/MIN Rate Random Glucose 89 MG/DL Calcium Level 8.6 MG/DL Administered Medications Medications (Trade) Dose Ordered Sig/José Route PRN Reason Start Time Stop Time Status Last Admin Dose Admin Sodium Chloride (NS Flush) 2 ml BID IV FLUSH 05/18/17 21:00 05/25/17 10:09 Senna/Docusate Sodium (Rosalinda-Colace) 1 tab BID PO 05/18/17 21:00 05/25/17 10:03 Amiodarone HCl (Cordarone) 200 mg DAILY PO 05/19/17 09:00 05/25/17 10:03 Levothyroxine Sodium (Synthroid) 50 mcg DAILY@0600 PO 05/19/17 06:00 05/25/17 04:57 Pantoprazole Sodium (Protonix) 40 mg BID PO 05/18/17 21:00 05/25/17 10:03 Pravastatin Sodium (Pravachol) 10 mg DAILY PO 05/19/17 09:00 05/25/17 10:03 Diphenhydramine HCl (Benadryl) 25 mg Q4H PRN PO FOR BLOOD PRODUCTS 05/19/17 01:30 05/25/17 11:10 Acetaminophen (Tylenol) 650 mg Q4H PRN PO FOR BLOOD PRODUCTS 05/19/17 01:30 05/25/17 11:10 Cyclosporine (SandIMMUNE) 300 mg BID@, PO 05/20/17 06:00 06/02/17 18:01 05/25/17 04:57 Cyclosporine (SandIMMUNE) 50 mg BID@,18 PO 05/20/17 06:00 06/02/17 18:01 05/25/17 04:57 Methylprednisolone 40 mg 40 mg DAILY PO 05/24/17 09:00 06/01/17 09:01 05/25/17 10:03 Cefepime HCl/ Sodium Chloride (Maxipime Inj/NS Inj) 100 ml @ 200 mls/hr Q12H IV 05/20/17 14:00 05/25/17 02:12 Furosemide 20 mg 20 mg BID@09,18 PO 05/23/17 18:00 05/25/17 10:04 Vancomycin HCl 1000 mg/Sodium Chloride 250 ml @ 250 mls/hr Q12H IV 05/24/17 05:00 05/25/17 04:54 Filgrastim/ Dextrose (Neupogen Inj/ D5W Inj) 25 ml @ 100 mls/hr DAILY@14 IV 05/24/17 20:00 05/24/17 22:12 Patient Own Medication PT OWN MED: Proma... DAILY PO 05/25/17 09:00 05/25/17 10:05 Objective Remarks GENERAL: Pleasant female upright in bed. She is bright and happy. in nad. 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 right pinna with erythema and scabbing HEAD: Normocephalic. swelling with scabbing lesion on lip EYES: No injection or drainage. NECK: Supple, trachea midline. CARDIOVASCULAR: +S1/S2 RESPIRATORY: Breath sounds equal bilaterally. No accessory muscle use. GASTROINTESTINAL: Abdomen soft, non-tender, nondistended. EXTREMITIES: No cyanosis NEUROLOGICAL: awake and alert. normal speech. moving all extremities. Assessment/Plan Problem List: (1) Pancytopenia Status: Acute Plan: -- +aplastic anemia -- bone marrow biopsy results show aplastic anemia --05/21/17: ATG and cyclosporine Day 1, had some rigors during ATG which resolved with demerol. Promacta started --05/22/17: continue ATG and cyclosporine. continue Promacta --05/23/17: continue ATG and cyclosporine Day 3. continue Promacta. --05/24/17: last day of ATG and cyclosporine. Neupogen started --05/25: give 1 unit pRBC and 1 unit platelets (2) Cellulitis of ear Status: Acute Plan: --on Vanco and Cefepime --start antiviral therapy 05/25 for worsening lip Assessment 82-year-old female with anemia brought in for immunosuppressive treatment Plan 1. give 1 unit pRBC and 1 unit platelets today 2. continue Promacta 3. start antiviral therapy for worsening lip infection 4. ask nurse to call infectious disease for further recommendations as right ear cellulitis not improving, lip is worsening. Attending Statement The exam, history, and the medical decision-making described in the above note were completed with the assistance of the mid-level provider. I reviewed and agree with the findings presented. I attest that I had a [id number] encounter with the patient on the same day, and personally performed and documented my assessment and findings in the medical record. Pt seen and examined. Discussed need for transfusion. R ear lobe looks the same as does the upper lip. Noted more thrush, agree to mycelex. Discussed w/ pharmacy and nursing, optimal dosing of Promacta away from food. Information on Promacta provided to pt and staff. Cecilia Hughes May 25, 2017 12:08 Luna Marie MD May 25, 2017 22:03
[2017-05-25] MEDS ORDERED: GANCICLOVIR IV SCH (15:00)
[2017-05-25] MEDS ORDERED: SODIUM CHLORIDE 0.9% IV SCH (15:00)
[2017-05-25] MEDS: FILGRASTIM INJ 300 MCG in DEXTROSE 5% IN WATER INJ 24 ML IV SCH ×2 (16:25)
[2017-05-25] MEDS: SODIUM CHLORIDE 0.9% IV SCH ×2 (17:50→23:43)
[2017-05-25] MEDS: ACYCLOVIR IV SCH ×2 (17:50→23:43)
--- NOTE | 2017-05-25 22:30 | HHI.IDPN ---
Subjective Subjective Remarks ANC remain @ 0, plts of 7 thinks her lip ulcer is bigger , denies pain Ear is better, less pain pt is afebrile Antibiotics vanco cefpeime acyclovir stareted Allergies: Coded Allergies: No Known Allergies (Verified , 05/08/17) Objective . Vital Signs Date Time Temp Pulse Resp B/P Pulse Ox O2 Delivery O2 Flow Rate FiO2 05/25/17 20:00 97.0 63 16 164/79 95 05/25/17 17:30 98.2 80 18 138/82 96 05/25/17 16:55 98.8 69 18 95 05/25/17 16:00 98.1 71 18 123/58 94 05/25/17 13:45 96.9 71 20 139/65 96 05/25/17 12:52 70 129/71 05/25/17 12:00 97.9 69 16 160/84 94 05/25/17 08:00 67 05/25/17 08:00 97.9 69 16 160/84 94 05/25/17 04:00 97.8 64 16 154/62 96 05/25/17 04:00 62 05/25/17 00:00 60 05/25/17 00:00 97.8 62 16 151/67 96 05/24/17 05/24/17 05/25/17 15:00 23:00 07:00 Intake Total 240 ml 730 ml 650 ml Output Total 500 ml Balance -260 ml 730 ml 650 ml Intake Oral 240 ml 730 ml 250 ml IV Total 400 ml Output Urine Total 500 ml # Voids 5 1 # Bowel Movements 1 0 . Laboratory Tests Test 05/24/17 05/25/17 12:25 06:00 White Blood Count 0.5 TH/MM3 1.3 TH/MM3 Red Blood Count 2.76 MIL/MM3 2.49 MIL/MM3 Hemoglobin 7.9 GM/DL 7.1 GM/DL Hematocrit 23.3 % 21.0 % Mean Corpuscular Volume 84.4 FL 84.3 FL Mean Corpuscular Hemoglobin 28.6 PG 28.7 PG Mean Corpuscular Hemoglobin 33.9 % 34.0 % Concent Red Cell Distribution Width 13.6 % 13.7 % Platelet Count 12 TH/MM3 7 TH/MM3 Mean Platelet Volume 8.2 FL 8.4 FL Neutrophils (%) (Auto) % 0.9 % Lymphocytes (%) (Auto) % 98.4 % Monocytes (%) (Auto) % 0.7 % Eosinophils (%) (Auto) % 0.0 % Basophils (%) (Auto) % 0.0 % Neutrophils # (Auto) TH/MM3 0.0 TH/MM3 Lymphocytes # (Auto) TH/MM3 1.3 TH/MM3 Monocytes # (Auto) TH/MM3 0.0 TH/MM3 Eosinophils # (Auto) TH/MM3 0.0 TH/MM3 Basophils # (Auto) TH/MM3 0.0 TH/MM3 CBC Comment AUTO DIFF AUTO DIFF Differential Total Cells 25 100 Counted Lymphocytes % 100 % 99 % Differential Comment FINAL DIFF FINAL DIFF MANUAL MANUAL Platelet Estimate NORMAL RARE Platelet Morphology Comment NORMAL NORMAL Red Cell Morphology Comment NORMAL Monocytes % 1 % Neutrophils # (Manual) 0.0 TH/MM3 Laboratory Tests Test 05/24/17 05/25/17 05:45 06:00 Creatinine 0.63 MG/DL 0.62 MG/DL Estimat Glomerular Filtration 90 ML/MIN 92 ML/MIN Rate Sodium Level 141 MEQ/L Potassium Level 3.6 MEQ/L Chloride Level 106 MEQ/L Carbon Dioxide Level 30.3 MEQ/L Anion Gap 5 MEQ/L Blood Urea Nitrogen 19 MG/DL Random Glucose 89 MG/DL Calcium Level 8.6 MG/DL Imaging Last Impressions Bone Biopsy CT 05/18/17 1456 Signed Impressions: Service Date/Time: Thursday, May 18, 2017 15:21 - CONCLUSION: 1. Uncomplicated CT guided bone marrow aspirate. 2. Uncomplicated CT guided bone marrow biopsy. Robert Cruz MD FACR PICC Line Insertion 05/18/17 0000 Signed Impressions: Service Date/Time: Thursday, May 18, 2017 13:31 - CONCLUSION: 1. Uncomplicated central venous Power PICC line placement. 2. The PICC line can be used immediately. Meliton Lerma MD Physical Exam CONSTITUTIONAL/GENERAL: This is an adequately nourished patient, in no apparent distress. TUBES/LINES/DRAINS: SKIN: No jaundice, or dissufe rash . Ecchymoses on upper extremities. No wounds seen anteriorly. Skin temperature appropriate. Not diaphoretic. EYES: Pupils equal and round and reactive. Extraocular motions intact. No scleral icterus. No injection or drainage. Fundi not examined. ENT: Hearing grossly normal. Nose without bleeding or purulent drainage. Oral mucosae without visible erythema, exudates, masses, or lesions. Crusted lesions on upper lip seems bigger, mildly edematous, minimallyt tender R pinna is much improved, with resolving edema and erythema , not tender to palpation, crusted lesdion on the egde of the pinna nearly healed, no fluctuance, minimally tender to palpation CARDIOVASCULAR: Regular rate and rhythm without murmurs, gallops, or rubs. No JVD. Peripheral pulses symmetric. RESPIRATORY/CHEST: Symmetric, unlabored respirations. Clear to auscultation. Breath sounds equal bilaterally. No wheezes, rales, or rhonchi. GASTROINTESTINAL: Abdomen soft, non-tender, nondistended. No hepato-splenomegaly , or palpable masses. Bowel sounds present. MUSCULOSKELETAL: Extremities without clubbing, cyanosis, or edema. No calf tenderness. No mottling or clubbing. NEUROLOGICAL: Awake and alert. Motor and sensory grossly within normal limits. Follows commands. Clear speech. Moves all extremities. PSYCHIATRIC: No obvious anxiety/depression. no apparent hallucinations or other psychotic thought process. Assessment & Plan Remarks Aplastic anemia, pancytopenia Severe neutropenia, ANC of 0, refractory Severe thrombocytopenia R pinna cellilits responding to current empiric abx Upper lip crusted lesion - not improving, somewhat worse - acyclovitr started Fever - resolved bl clx not obtained REC's: cont vanco, cefepime for now cont acyclovir get HSV PCR from the lesion Roseann Ham MD May 25, 2017 22:30
[2017-05-25] MEDS: CLOTRIMAZOLE 10 MG TROCHE BUCCAL SCH (23:43)
[2017-05-26] VITALS: BP 145/66; PULSE 63; RESP 16; TEMP 98.2; O2SAT 96
[2017-05-26] MEDS: CEFEPIME INJ 2,000 MG in SODIUM CHLORIDE 0.9% INJ 100 ML IV SCH ×2 (01:50→14:41)
[2017-05-26 04:00] VITALS: BP 146/71; PULSE 63; RESP 16; TEMP 98.2; O2SAT 94
[2017-05-26] MEDS: VANCOMYCIN 1,000 MG/NS 250 ML IV SCH ×4 (05:19→17:22)
[2017-05-26] MEDS: cycloSPORINE 25 MG CAP PO SCH ×2 (05:20→17:22)
[2017-05-26] MEDS: cycloSPORINE 100 MG CAP PO SCH ×2 (05:20→17:22)
[2017-05-26] MEDS: CLOTRIMAZOLE 10 MG TROCHE BUCCAL SCH ×5 (05:21→21:11)
[2017-05-26] MEDS: LEVOTHYROXINE SODIUM 50 MCG TAB PO SCH (05:22)
[2017-05-26] MEDS: PROMACTA 50 MG PO SCH (05:26)
[2017-05-26 05:57] LABS: HEMATOCRIT 23.1 % (35.0-46.0); MEAN CORPUSCULAR HEMOGLOBIN 29.3 PG (27.0-34.0); MEAN CORPUSCULAR HGB CONC 35.3 % (32.0-36.0); PLATELET COUNT 38 TH/MM3 (150-450); RED BLOOD COUNT 2.79 MIL/MM3 (4.00-5.30); RED CELL DISTRIBUTION WIDTH 13.3 % (11.6-17.2); WHITE BLOOD COUNT 1.9 TH/MM3 (4.0-11.0)
[2017-05-26 06:14] LABS: HEMO FLAGS AUTO DIFF
[2017-05-26] MEDS: SODIUM CHLORIDE 0.9% IV SCH ×3 (07:51→23:19)
[2017-05-26] MEDS: ACYCLOVIR IV SCH ×3 (07:51→23:19)
[2017-05-26 08:00] VITALS: BP 157/69; PULSE 67; RESP 18; TEMP 98.1; O2SAT 95
[2017-05-26 08:44] LABS: SCAN/DIFF FINAL DIFF MANUAL; WBC DIFF SAMPLE 100
[2017-05-26 08:45] LABS: PLATELET ESTIMATE SMEAR LOW (NORMAL); PLATELET MORPHOLOGY NORMAL (NORMAL)
[2017-05-26] MEDS: DOCUSATE SODIUM 50 MG/SENNA 8.6 MG TAB PO SCH ×2 (09:07→19:41)
[2017-05-26] MEDS: FUROSEMIDE 20 MG TAB PO SCH ×2 (09:07→17:22)
[2017-05-26] MEDS: PRAVASTATIN SOD 10 MG TAB PO SCH (09:07)
[2017-05-26] MEDS: PANTOPRAZOLE SOD 40 MG DELAYED RELEASE TAB PO SCH ×2 (09:07→19:41)
[2017-05-26] MEDS: AMIODARONE 200 MG TAB PO SCH (09:07)
[2017-05-26] MEDS: SODIUM CHLORIDE 0.9% FLUSH 10 ML FLUSH IV FLUSH SCH ×2 (09:08→19:42)
[2017-05-26 12:00] VITALS: BP 140/67; PULSE 71; RESP 18; TEMP 99.4; O2SAT 94
--- NOTE | 2017-05-26 13:58 | PD.ONC.PN ---
Subjective Subjective Remarks Afebrile overnight. Patient resting in bed in nad. Notes that her lip has started to itch. Objective Data Date Time Temp Pulse Resp B/P Pulse Ox O2 Delivery O2 Flow Rate FiO2 05/26/17 12:00 99.4 71 18 140/67 94 05/26/17 08:00 98.1 67 18 157/69 95 05/26/17 04:00 98.2 63 16 146/71 94 05/26/17 00:00 98.2 63 16 145/66 96 05/25/17 20:00 97.0 63 16 164/79 95 05/25/17 17:30 98.2 80 18 138/82 96 05/25/17 16:55 98.8 69 18 95 05/25/17 16:00 98.1 71 18 123/58 94 05/26/17 05/26/17 05/26/17 07:00 15:00 23:00 Intake Total 650 ml 120 ml Output Total 600 ml 2 ml Balance 50 ml 118 ml Result Diagram: 05/26/17 0500 05/25/17 0600 Laboratory Results Laboratory Tests Test 05/26/17 05:00 White Blood Count 1.9 TH/MM3 Red Blood Count 2.79 MIL/MM3 Hemoglobin 8.2 GM/DL Hematocrit 23.1 % Mean Corpuscular Volume 83.0 FL Mean Corpuscular Hemoglobin 29.3 PG Mean Corpuscular Hemoglobin 35.3 % Concent Red Cell Distribution Width 13.3 % Platelet Count 38 TH/MM3 Mean Platelet Volume 8.0 FL Neutrophils (%) (Auto) % Lymphocytes (%) (Auto) % Monocytes (%) (Auto) % Eosinophils (%) (Auto) % Basophils (%) (Auto) % Neutrophils # (Auto) TH/MM3 Lymphocytes # (Auto) TH/MM3 Monocytes # (Auto) TH/MM3 Eosinophils # (Auto) TH/MM3 Basophils # (Auto) TH/MM3 CBC Comment AUTO DIFF Differential Total Cells 100 Counted Lymphocytes % 100 % Neutrophils # (Manual) 0.0 TH/MM3 Differential Comment FINAL DIFF MANUAL Platelet Estimate LOW Platelet Morphology Comment NORMAL Administered Medications Medications (Trade) Dose Ordered Sig/José Route PRN Reason Start Time Stop Time Status Last Admin Dose Admin Sodium Chloride (NS Flush) 2 ml BID IV FLUSH 05/18/17 21:00 05/26/17 09:08 Senna/Docusate Sodium (Rosalinda-Colace) 1 tab BID PO 05/18/17 21:00 05/26/17 09:07 Amiodarone HCl (Cordarone) 200 mg DAILY PO 05/19/17 09:00 05/26/17 09:07 Levothyroxine Sodium (Synthroid) 50 mcg DAILY@0600 PO 05/19/17 06:00 05/26/17 05:22 Pantoprazole Sodium (Protonix) 40 mg BID PO 05/18/17 21:00 05/26/17 09:07 Pravastatin Sodium (Pravachol) 10 mg DAILY PO 05/19/17 09:00 05/26/17 09:07 Diphenhydramine HCl (Benadryl) 25 mg Q4H PRN PO FOR BLOOD PRODUCTS 05/19/17 01:30 05/25/17 15:36 Acetaminophen (Tylenol) 650 mg Q4H PRN PO FOR BLOOD PRODUCTS 05/19/17 01:30 05/25/17 15:36 Cyclosporine (SandIMMUNE) 300 mg BID@ PO 05/20/17 06:00 06/02/17 18:01 05/26/17 05:20 Cyclosporine (SandIMMUNE) 50 mg BID@ PO 05/20/17 06:00 06/02/17 18:01 05/26/17 05:20 Methylprednisolone 40 mg 40 mg DAILY PO 05/24/17 09:00 06/01/17 09:01 05/26/17 09:07 Cefepime HCl/ Sodium Chloride (Maxipime Inj/NS Inj) 100 ml @ 200 mls/hr Q12H IV 05/20/17 14:00 05/26/17 01:50 Furosemide 20 mg 20 mg BID@ PO 05/23/17 18:00 05/26/17 09:07 Vancomycin HCl 1000 mg/Sodium Chloride 250 ml @ 250 mls/hr Q12H IV 05/24/17 05:00 05/26/17 05:19 Filgrastim 300 mcg/Dextrose 25 ml @ 100 mls/hr DAILY@14 IV 05/24/17 20:00 05/25/17 16:25 Acyclovir Sodium/ Sodium Chloride (Zovirax Inj/NS Inj) 50 ml @ 50 mls/hr Q8H IV 05/25/17 16:00 05/26/17 07:51 Patient Own Medication PT OWN MED: Proma... DAILY@06 PO 05/26/17 06:00 05/26/17 05:26 Objective Remarks GENERAL: Pleasant female upright in bed in nad. 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 right pinna erythema, swelling and scabbing noted. HEAD: Normocephalic. scabbed lesion on lip EYES: No injection or drainage. NECK: Supple, trachea midline. CARDIOVASCULAR: +S1/S2 RESPIRATORY: Breath sounds equal bilaterally. No accessory muscle use. GASTROINTESTINAL: Abdomen soft, non-tender, nondistended. EXTREMITIES: No cyanosis NEUROLOGICAL: awake and alert. normal speech. moving all extremities. Assessment/Plan Problem List: (1) Pancytopenia Status: Acute Plan: -- +aplastic anemia -- bone marrow biopsy results show aplastic anemia --05/21/17: ATG and cyclosporine Day 1, had some rigors during ATG which resolved with demerol. Promacta started --05/22/17: continue ATG and cyclosporine. continue Promacta --05/23/17: continue ATG and cyclosporine Day 3. continue Promacta. --05/24/17: last day of ATG and cyclosporine. Neupogen started --05/25: give 1 unit pRBC and 1 unit platelets --05/26: no transfusion today. (2) Cellulitis of ear Status: Acute Plan: --on Vanco and Cefepime (3) Lip lesion Status: Acute Plan: --suspect herpetic lesion --on Acyclovir Assessment 82-year-old female with anemia brought in for immunosuppressive treatment Plan 1. continue Promacta 2. continue IV antibiotics and antiviral 3. monitor CBC. once ANC>1K could be discharged. 4. continue Neupogen Attending Statement The exam, history, and the medical decision-making described in the above note were completed with the assistance of the mid-level provider. I reviewed and agree with the findings presented. I attest that I had a [id number] encounter with the patient on the same day, and personally performed and documented my assessment and findings in the medical record. PT seen and examined in AM. Amused that her food is in plastic wrap including her bottled water. No change in R ear or upper lip. No significant improvement, worrisome as pt as no neutrophils. No transfusions needed today. Looks like recovery of WBC with GCSF- used because of ear infection. No bleeding. Cecilia Hughes May 26, 2017 13:58 Luna Marie MD May 27, 2017 00:17
[2017-05-26] MEDS: FILGRASTIM INJ 300 MCG in DEXTROSE 5% IN WATER INJ 24 ML IV SCH ×2 (15:17)
--- NOTE | 2017-05-26 16:04 | HHI.PR ---
Subjective Interval History alert, oriented, she feels better today, the lip is less swollen, the right pinna started to produce tiny amounts of yellow discharge Review of Systems Constitutional Constitutional Remarks 10 systems reviewed otherwise negative Vitals/Results Intake & Output 05/25/17 05/25/17 05/26/17 15:00 23:00 07:00 Intake Total 720 ml 680 ml 650 ml Output Total 600 ml Balance 720 ml 680 ml 50 ml Intake Oral 720 ml 300 ml 300 ml IV Total 80 ml 350 ml Packed Cells 300 ml Output Urine Total 600 ml # Voids 4 2 # Bowel Movements 0 0 0 Vital Signs Vital Signs Date Time Temp Pulse Resp B/P Pulse Ox O2 Delivery O2 Flow Rate FiO2 05/26/17 12:00 99.4 71 18 140/67 94 05/26/17 08:00 98.1 67 18 157/69 95 05/26/17 04:00 98.2 63 16 146/71 94 05/26/17 00:00 98.2 63 16 145/66 96 05/25/17 20:00 97.0 63 16 164/79 95 05/25/17 17:30 98.2 80 18 138/82 96 05/25/17 16:55 98.8 69 18 95 CBC/BMP: 05/26/17 0500 05/25/17 0600 Lab Results Laboratory Tests Test 05/26/17 05:00 White Blood Count 1.9 TH/MM3 Red Blood Count 2.79 MIL/MM3 Hemoglobin 8.2 GM/DL Hematocrit 23.1 % Mean Corpuscular Volume 83.0 FL Mean Corpuscular Hemoglobin 29.3 PG Mean Corpuscular Hemoglobin 35.3 % Concent Red Cell Distribution Width 13.3 % Platelet Count 38 TH/MM3 Mean Platelet Volume 8.0 FL Neutrophils (%) (Auto) % Lymphocytes (%) (Auto) % Monocytes (%) (Auto) % Eosinophils (%) (Auto) % Basophils (%) (Auto) % Neutrophils # (Auto) TH/MM3 Lymphocytes # (Auto) TH/MM3 Monocytes # (Auto) TH/MM3 Eosinophils # (Auto) TH/MM3 Basophils # (Auto) TH/MM3 CBC Comment AUTO DIFF Differential Total Cells 100 Counted Lymphocytes % 100 % Neutrophils # (Manual) 0.0 TH/MM3 Differential Comment FINAL DIFF MANUAL Platelet Estimate LOW Platelet Morphology Comment NORMAL Physical Exam General General Appearance: Well Developed, Comfortable Eyes Eye Exam: Pupils Reactive Ears & Nose Ears & Nose Exam: Nasal Mucosa [place] Ears & Nose Remarks Right external ear cellulitis, swollen upper lip Throat Throat Exam: Oral Mucosa [place] & Moist Neck Neck Exam: Trachea Midline Pulmonary Resp Exam: Clear Bilaterally, Breath Sounds Equal, No Distress Cardiology CV Exam: Good Perfusion, Irregular Gastrointestinal/Abdomen GI Exam: Soft, Non-Tender, Bowel Sounds Present Musculoskeletal MS Exam: Normal Tone Integumentary Skin Exam: Warm, Dry (is a) Skin Remarks Extensive ecchymoses Neurologic Neuro Exam: Alert, Awake, Oriented, Speech Clear, 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, Travel Pt Equal, 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 Psychiatric Psych Exam: Appropriate Responses VTE Prophylaxis VTE Remarks anticoagulation is contraindicated, both chemical (because of risk of bleeding )and mechanical (because of risk of bruising/ecchymoses/bleeding ) PUD Prophylasis PUD Prophylaxis: Protonix Assessment/Plan Assessment/Plan Assessment Edema to his upper lip, improved Right external ear cellulitis, Leukopenia, absolute neutrophil count is still 0 Symptomatic anemia, Improved after transfusion Severe profound symptomatic thrombocytopenia, given platelets again today Uncontrolled aplastic anemia Acellular bone marrow per biopsy report Status post bone marrow biopsy 05/18/17 Recent diagnosis of atrial fibrillation Recent diagnosis of gastric erosions Management Acyclovir Vancomycin Cefepime Lisinopril for blood pressure control Lasix 20 mg twice a day Replace potassium as needed Antibiotics per ID Chemotherapy Telemetry Follow complete blood count Follow electrolytes and replace as needed Continue proton pump inhibitor Discussed with patient Discussed with nurse Infectious disease and oncology following Discussed with oncology team 35 minutes spent Elan Espinoza MD May 26, 2017 16:04
[2017-05-26 16:47] VITALS: BP 154/75; PULSE 71; RESP 18; TEMP 99; O2SAT 96
[2017-05-26 20:00] VITALS: BP 154/74; PULSE 70; RESP 16; TEMP 98.1; O2SAT 94
[2017-05-27] VITALS: BP 173/80; PULSE 70; RESP 16; TEMP 98; O2SAT 93
[2017-05-27] MEDS: CEFEPIME INJ 2,000 MG in SODIUM CHLORIDE 0.9% INJ 100 ML IV SCH ×2 (01:14→14:22)
[2017-05-27] MEDS: VANCOMYCIN 1,000 MG/NS 250 ML IV SCH ×4 (04:56→17:36)
[2017-05-27 05:03] VITALS: BP 164/78; PULSE 68; RESP 16; TEMP 98; O2SAT 93
[2017-05-27 05:43] LABS: HEMATOCRIT 24.9 % (35.0-46.0); MEAN CELL VOLUME 83.5 FL (80.0-100.0); MEAN CORPUSCULAR HEMOGLOBIN 28.7 PG (27.0-34.0); MEAN CORPUSCULAR HGB CONC 34.4 % (32.0-36.0); PLATELET COUNT 27 TH/MM3 (150-450); RED BLOOD COUNT 2.98 MIL/MM3 (4.00-5.30); RED CELL DISTRIBUTION WIDTH 13.6 % (11.6-17.2); WHITE BLOOD COUNT 2.5 TH/MM3 (4.0-11.0)
[2017-05-27] MEDS: PROMACTA 50 MG PO SCH (06:00)
[2017-05-27 06:01] LABS: HEMO FLAGS AUTO DIFF
[2017-05-27 06:07] LABS: BICARBONATE 30.4 MEQ/L (21.0-32.0); POTASSIUM 3.3 MEQ/L (3.5-5.1)
[2017-05-27] MEDS: CLOTRIMAZOLE 10 MG TROCHE BUCCAL SCH ×5 (06:43→23:18)
[2017-05-27] MEDS: cycloSPORINE 25 MG CAP PO SCH ×2 (06:44→17:36)
[2017-05-27] MEDS: cycloSPORINE 100 MG CAP PO SCH ×2 (06:44→17:36)
[2017-05-27] MEDS: LEVOTHYROXINE SODIUM 50 MCG TAB PO SCH (06:44)
[2017-05-27 07:13] LABS: PLATELET ESTIMATE SMEAR LOW (NORMAL); PLATELET MORPHOLOGY NORMAL (NORMAL); WBC DIFF SAMPLE 100
[2017-05-27 07:14] LABS: SCAN/DIFF FINAL DIFF MANUAL
[2017-05-27] MEDS: SODIUM CHLORIDE 0.9% FLUSH 10 ML FLUSH IV FLUSH SCH ×2 (07:58→19:50)
[2017-05-27] MEDS: ACYCLOVIR IV SCH ×3 (07:59→23:18)
[2017-05-27] MEDS: SODIUM CHLORIDE 0.9% IV SCH ×3 (07:59→23:18)
[2017-05-27 08:00] VITALS: BP 135/64; PULSE 76; RESP 20; TEMP 99.1; O2SAT 94
[2017-05-27] MEDS: DOCUSATE SODIUM 50 MG/SENNA 8.6 MG TAB PO SCH ×2 (09:21→19:50)
[2017-05-27] MEDS: AMIODARONE 200 MG TAB PO SCH (09:21)
[2017-05-27] MEDS: PANTOPRAZOLE SOD 40 MG DELAYED RELEASE TAB PO SCH ×2 (09:21→19:51)
[2017-05-27] MEDS: PRAVASTATIN SOD 10 MG TAB PO SCH (09:21)
[2017-05-27] MEDS: FUROSEMIDE 20 MG TAB PO SCH ×2 (09:21→17:36)
[2017-05-27 10:15] LABS: HSV 1,PCR Positive (Negative)
[2017-05-27 12:00] VITALS: BP 116/59; PULSE 76; RESP 19; TEMP 98.8; O2SAT 94
--- NOTE | 2017-05-27 12:43 | PD.ONC.PN ---
Subjective Subjective Remarks Afebrile overnight. Patient resting in bed. Still with pain in lip. States ear feels better. Objective Data Date Time Temp Pulse Resp B/P Pulse Ox O2 Delivery O2 Flow Rate FiO2 05/27/17 08:00 99.1 76 20 135/64 94 05/27/17 05:03 98.0 68 16 164/78 93 05/27/17 00:00 98.0 70 16 173/80 93 05/26/17 20:00 98.1 70 16 154/74 94 05/26/17 16:47 99.0 71 18 154/75 96 Result Diagram: 05/27/17 0505 05/27/17 0505 Laboratory Results Laboratory Tests Test 05/27/17 05:05 White Blood Count 2.5 TH/MM3 Red Blood Count 2.98 MIL/MM3 Hemoglobin 8.6 GM/DL Hematocrit 24.9 % Mean Corpuscular Volume 83.5 FL Mean Corpuscular Hemoglobin 28.7 PG Mean Corpuscular Hemoglobin 34.4 % Concent Red Cell Distribution Width 13.6 % Platelet Count 27 TH/MM3 Mean Platelet Volume 8.2 FL Neutrophils (%) (Auto) % Lymphocytes (%) (Auto) % Monocytes (%) (Auto) % Eosinophils (%) (Auto) % Basophils (%) (Auto) % Neutrophils # (Auto) TH/MM3 Lymphocytes # (Auto) TH/MM3 Monocytes # (Auto) TH/MM3 Eosinophils # (Auto) TH/MM3 Basophils # (Auto) TH/MM3 CBC Comment AUTO DIFF Differential Total Cells 100 Counted Lymphocytes % 100 % Neutrophils # (Manual) 0.0 TH/MM3 Differential Comment FINAL DIFF MANUAL Platelet Estimate LOW Platelet Morphology Comment NORMAL Red Cell Morphology Comment NORMAL Sodium Level 141 MEQ/L Potassium Level 3.3 MEQ/L Chloride Level 102 MEQ/L Carbon Dioxide Level 30.4 MEQ/L Anion Gap 9 MEQ/L Blood Urea Nitrogen 20 MG/DL Creatinine 0.58 MG/DL Estimat Glomerular Filtration 100 ML/MIN Rate Random Glucose 96 MG/DL Calcium Level 8.3 MG/DL Administered Medications Medications (Trade) Dose Ordered Sig/José Route PRN Reason Start Time Stop Time Status Last Admin Dose Admin Sodium Chloride (NS Flush) 2 ml BID IV FLUSH 05/18/17 21:00 05/27/17 07:58 Senna/Docusate Sodium (Rosalinda-Colace) 1 tab BID PO 05/18/17 21:00 05/27/17 09:21 Amiodarone HCl (Cordarone) 200 mg DAILY PO 05/19/17 09:00 05/27/17 09:21 Levothyroxine Sodium (Synthroid) 50 mcg DAILY@0600 PO 05/19/17 06:00 05/27/17 06:44 Pantoprazole Sodium (Protonix) 40 mg BID PO 05/18/17 21:00 05/27/17 09:21 Pravastatin Sodium (Pravachol) 10 mg DAILY PO 05/19/17 09:00 05/27/17 09:21 Diphenhydramine HCl (Benadryl) 25 mg Q4H PRN PO FOR BLOOD PRODUCTS 05/19/17 01:30 05/25/17 15:36 Acetaminophen (Tylenol) 650 mg Q4H PRN PO FOR BLOOD PRODUCTS 05/19/17 01:30 05/25/17 15:36 Cyclosporine (SandIMMUNE) 300 mg BID@ PO 05/20/17 06:00 06/02/17 18:01 05/27/17 06:44 Cyclosporine (SandIMMUNE) 50 mg BID@ PO 05/20/17 06:00 06/02/17 18:01 05/27/17 06:44 Methylprednisolone 40 mg 40 mg DAILY PO 05/24/17 09:00 06/01/17 09:01 05/27/17 09:21 Cefepime HCl/ Sodium Chloride (Maxipime Inj/NS Inj) 100 ml @ 200 mls/hr Q12H IV 05/20/17 14:00 05/27/17 01:14 Furosemide 20 mg 20 mg BID@ PO 05/23/17 18:00 05/27/17 09:21 Vancomycin HCl 1000 mg/Sodium Chloride 250 ml @ 250 mls/hr Q12H IV 05/24/17 05:00 05/27/17 04:56 Filgrastim 300 mcg/Dextrose 25 ml @ 100 mls/hr DAILY@14 IV 05/24/17 20:00 05/26/17 15:17 Acyclovir Sodium/ Sodium Chloride (Zovirax Inj/NS Inj) 50 ml @ 50 mls/hr Q8H IV 05/25/17 16:00 05/27/17 07:59 Patient Own Medication PT OWN MED: Proma... DAILY@06 PO 05/26/17 06:00 05/27/17 06:00 Objective Remarks GENERAL: Pleasant female lying in bed in nad. 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 black and yellow scabbing lesion on lip EYES: No injection or drainage. NECK: Supple, trachea midline. CARDIOVASCULAR: +S1/S2 RESPIRATORY: Breath sounds equal bilaterally. No accessory muscle use. GASTROINTESTINAL: Abdomen soft, non-tender, nondistended. EXTREMITIES: No cyanosis NEUROLOGICAL: aox3. normal speech. moving extremities. upright in room. Assessment/Plan Problem List: (1) Pancytopenia Status: Acute Plan: -- +aplastic anemia -- bone marrow biopsy results show aplastic anemia --05/21/17: ATG and cyclosporine Day 1, had some rigors during ATG which resolved with demerol. Promacta started --05/22/17: continue ATG and cyclosporine. continue Promacta --05/23/17: continue ATG and cyclosporine Day 3. continue Promacta. --05/24/17: last day of ATG and cyclosporine. Neupogen started --05/25: give 1 unit pRBC and 1 unit platelets --05/26: no transfusion today. --05/27: counts stable. WBC improving. neutrophils remain 0 (2) Cellulitis of ear Status: Acute Plan: --on Vanco and Cefepime (3) Lip lesion Status: Acute Plan: --suspect herpetic lesion --on Acyclovir Assessment 82-year-old female with anemia brought in for immunosuppressive treatment Plan 1. once ANC>1K could be discharged. 2. will need a disposition from infectious disease regarding antibiotics 3. for now will continue IV Cefepime and Vanco as well as IV acyclovir 4. continue Neupogen Attending Statement The exam, history, and the medical decision-making described in the above note were completed with the assistance of the mid-level provider. I reviewed and agree with the findings presented. I attest that I had a [id number] encounter with the patient on the same day, and personally performed and documented my assessment and findings in the medical record. Interesting that blood counts increase. Still ANC 0 however R ear looks better. No RBC or platelet transfusion. Upper lip unchanged but thrush resolved. No sign of serum sickness. Continue support. Cecilia Hughes May 27, 2017 12:43 Luna Marie MD May 27, 2017 19:07
[2017-05-27] MEDS ORDERED: ALTEPLASE RECOMBINANT 2 MG VIAL ONE (12:45)
[2017-05-27] MEDS: FILGRASTIM INJ 300 MCG in DEXTROSE 5% IN WATER INJ 24 ML IV SCH ×2 (15:03)
[2017-05-27 16:00] VITALS: BP 142/74; PULSE 107; RESP 16; TEMP 97.3; O2SAT 95
--- NOTE | 2017-05-27 17:31 | HHI.PR ---
Subjective Interval History Alert, oriented, feeling better, less swelling in the upper lip, no pain in the right ear Review of Systems Constitutional Constitutional Remarks 10 systems reviewed otherwise negative Vitals/Results Intake & Output 05/26/17 05/26/17 05/27/17 15:00 23:00 07:00 Intake Total 120 ml 350 ml 250 ml Output Total 2 ml 400 ml 400 ml Balance 118 ml -50 ml -150 ml Intake Oral 120 ml 350 ml 250 ml Output Urine Total 400 ml 400 ml Stool Total 2 ml # Voids 2 # Bowel Movements 0 0 Vital Signs Vital Signs Date Time Temp Pulse Resp B/P Pulse Ox O2 Delivery O2 Flow Rate FiO2 05/27/17 16:00 97.3 107 16 142/74 95 05/27/17 12:00 98.8 76 19 116/59 94 05/27/17 08:00 99.1 76 20 135/64 94 05/27/17 05:03 98.0 68 16 164/78 93 05/27/17 00:00 98.0 70 16 173/80 93 05/26/17 20:00 98.1 70 16 154/74 94 CBC/BMP: 05/27/17 0505 05/27/17 0505 Lab Results Laboratory Tests Test 05/27/17 05:05 White Blood Count 2.5 TH/MM3 Red Blood Count 2.98 MIL/MM3 Hemoglobin 8.6 GM/DL Hematocrit 24.9 % Mean Corpuscular Volume 83.5 FL Mean Corpuscular Hemoglobin 28.7 PG Mean Corpuscular Hemoglobin 34.4 % Concent Red Cell Distribution Width 13.6 % Platelet Count 27 TH/MM3 Mean Platelet Volume 8.2 FL Neutrophils (%) (Auto) % Lymphocytes (%) (Auto) % Monocytes (%) (Auto) % Eosinophils (%) (Auto) % Basophils (%) (Auto) % Neutrophils # (Auto) TH/MM3 Lymphocytes # (Auto) TH/MM3 Monocytes # (Auto) TH/MM3 Eosinophils # (Auto) TH/MM3 Basophils # (Auto) TH/MM3 CBC Comment AUTO DIFF Differential Total Cells 100 Counted Lymphocytes % 100 % Neutrophils # (Manual) 0.0 TH/MM3 Differential Comment FINAL DIFF MANUAL Platelet Estimate LOW Platelet Morphology Comment NORMAL Red Cell Morphology Comment NORMAL Sodium Level 141 MEQ/L Potassium Level 3.3 MEQ/L Chloride Level 102 MEQ/L Carbon Dioxide Level 30.4 MEQ/L Anion Gap 9 MEQ/L Blood Urea Nitrogen 20 MG/DL Creatinine 0.58 MG/DL Estimat Glomerular Filtration 100 ML/MIN Rate Random Glucose 96 MG/DL Calcium Level 8.3 MG/DL Physical Exam General General Appearance: Well Developed, Comfortable Eyes Eye Exam: Pupils Reactive Ears & Nose Ears & Nose Exam: Nasal Mucosa [place] Ears & Nose Remarks Right external ear cellulitis, swollen upper lip Throat Throat Exam: Oral Mucosa [place] & Moist Neck Neck Exam: Trachea Midline Pulmonary Resp Exam: Clear Bilaterally, Breath Sounds Equal, No Distress Cardiology CV Exam: Good Perfusion, Irregular Gastrointestinal/Abdomen GI Exam: Soft, Non-Tender, Bowel Sounds Present Musculoskeletal MS Exam: Normal Tone Integumentary Skin Exam: Warm, Dry (is a) Skin Remarks Extensive ecchymoses Neurologic Neuro Exam: Alert, Awake, Oriented, Speech Clear, 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, Disability Examiner Equal, 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 Psychiatric Psych Exam: Appropriate Responses VTE Prophylaxis VTE Remarks anticoagulation is contraindicated, both chemical (because of risk of bleeding )and mechanical (because of risk of bruising/ecchymoses/bleeding ) PUD Prophylasis PUD Prophylaxis: Protonix Assessment/Plan Assessment/Plan Assessment Hypokalemia Edema to his upper lip, improved Right external ear cellulitis, Leukopenia, absolute neutrophil count is still 0 Symptomatic anemia, Improved after transfusion Severe profound symptomatic thrombocytopenia, given platelets again today Uncontrolled aplastic anemia Acellular bone marrow per biopsy report Status post bone marrow biopsy 05/18/17 Recent diagnosis of atrial fibrillation Recent diagnosis of gastric erosions Management Replace potassium Acyclovir Vancomycin Cefepime Lisinopril for blood pressure control Lasix 20 mg twice a day Replace potassium as needed Antibiotics per ID Chemotherapy Telemetry Follow complete blood count Follow electrolytes and replace as needed Continue proton pump inhibitor Discussed with patient Discussed with nurse Infectious disease and oncology following Discussed with oncology team 35 minutes spent Elan Espinoza MD May 27, 2017 17:30
--- NOTE | 2017-05-27 19:13 | HHI.IDPN ---
Subjective Subjective Remarks ANC remain @ 0, plts improved thinks her lip ulcer is bigger , + painful; lip + HSV 1 PCR Ear is better,no pain pt is afebrile Antibiotics vanco cefpeime acyclovir Allergies: Coded Allergies: No Known Allergies (Verified , 05/08/17) Objective . Vital Signs Date Time Temp Pulse Resp B/P Pulse Ox O2 Delivery O2 Flow Rate FiO2 05/27/17 16:00 97.3 107 16 142/74 95 05/27/17 12:00 98.8 76 19 116/59 94 05/27/17 08:00 99.1 76 20 135/64 94 05/27/17 05:03 98.0 68 16 164/78 93 05/27/17 00:00 98.0 70 16 173/80 93 05/26/17 20:00 98.1 70 16 154/74 94 05/26/17 05/26/17 05/27/17 15:00 23:00 07:00 Intake Total 120 ml 350 ml 250 ml Output Total 2 ml 400 ml 400 ml Balance 118 ml -50 ml -150 ml Intake Oral 120 ml 350 ml 250 ml Output Urine Total 400 ml 400 ml Stool Total 2 ml # Voids 2 # Bowel Movements 0 0 . Laboratory Tests Test 05/26/17 05/27/17 05:00 05:05 White Blood Count 1.9 TH/MM3 2.5 TH/MM3 Red Blood Count 2.79 MIL/MM3 2.98 MIL/MM3 Hemoglobin 8.2 GM/DL 8.6 GM/DL Hematocrit 23.1 % 24.9 % Mean Corpuscular Volume 83.0 FL 83.5 FL Mean Corpuscular Hemoglobin 29.3 PG 28.7 PG Mean Corpuscular Hemoglobin 35.3 % 34.4 % Concent Red Cell Distribution Width 13.3 % 13.6 % Platelet Count 38 TH/MM3 27 TH/MM3 Mean Platelet Volume 8.0 FL 8.2 FL Neutrophils (%) (Auto) % % Lymphocytes (%) (Auto) % % Monocytes (%) (Auto) % % Eosinophils (%) (Auto) % % Basophils (%) (Auto) % % Neutrophils # (Auto) TH/MM3 TH/MM3 Lymphocytes # (Auto) TH/MM3 TH/MM3 Monocytes # (Auto) TH/MM3 TH/MM3 Eosinophils # (Auto) TH/MM3 TH/MM3 Basophils # (Auto) TH/MM3 TH/MM3 CBC Comment AUTO DIFF AUTO DIFF Differential Total Cells 100 100 Counted Lymphocytes % 100 % 100 % Neutrophils # (Manual) 0.0 TH/MM3 0.0 TH/MM3 Differential Comment FINAL DIFF FINAL DIFF MANUAL MANUAL Platelet Estimate LOW LOW Platelet Morphology Comment NORMAL NORMAL Red Cell Morphology Comment NORMAL Laboratory Tests Test 05/27/17 05:05 Sodium Level 141 MEQ/L Potassium Level 3.3 MEQ/L Chloride Level 102 MEQ/L Carbon Dioxide Level 30.4 MEQ/L Anion Gap 9 MEQ/L Blood Urea Nitrogen 20 MG/DL Creatinine 0.58 MG/DL Estimat Glomerular Filtration 100 ML/MIN Rate Random Glucose 96 MG/DL Calcium Level 8.3 MG/DL Imaging Last Impressions Bone Biopsy CT 05/18/17 1456 Signed Impressions: Service Date/Time: Thursday, May 18, 2017 15:21 - CONCLUSION: 1. Uncomplicated CT guided bone marrow aspirate. 2. Uncomplicated CT guided bone marrow biopsy. Robert Cruz MD FACR PICC Line Insertion 05/18/17 0000 Signed Impressions: Service Date/Time: Thursday, May 18, 2017 13:31 - CONCLUSION: 1. Uncomplicated central venous Power PICC line placement. 2. The PICC line can be used immediately. Meliton Lerma MD Physical Exam CONSTITUTIONAL/GENERAL: This is an adequately nourished patient, in no apparent distress. TUBES/LINES/DRAINS: SKIN: No jaundice, or dissufe rash . Ecchymoses on upper extremities. No wounds seen anteriorly. Skin temperature appropriate. Not diaphoretic. EYES: Pupils equal and round and reactive. Extraocular motions intact. No scleral icterus. No injection or drainage. Fundi not examined. ENT: Hearing grossly normal. Nose without bleeding or purulent drainage. Oral mucosae without visible erythema, exudates, masses, or lesions. Crusted lesions on upper lip seems bigger, mildly edematous, minimallyt tender with black eschar R pinna is with residual edema and erythema , not tender to palpation, crusted lesdion on the egde of the pinna nearly healed, no fluctuance, minimally tender to palpation CARDIOVASCULAR: Regular rate and rhythm without murmurs, gallops, or rubs. No JVD. Peripheral pulses symmetric. RESPIRATORY/CHEST: Symmetric, unlabored respirations. Clear to auscultation. Breath sounds equal bilaterally. No wheezes, rales, or rhonchi. GASTROINTESTINAL: Abdomen soft, non-tender, nondistended. No hepato-splenomegaly , or palpable masses. Bowel sounds present. MUSCULOSKELETAL: Extremities without clubbing, cyanosis, or edema. No calf tenderness. No mottling or clubbing. NEUROLOGICAL: Awake and alert. Motor and sensory grossly within normal limits. Follows commands. Clear speech. Moves all extremities. PSYCHIATRIC: calm and cooperative Assessment & Plan Remarks Aplastic anemia, pancytopenia Severe neutropenia, ANC of 0, refractory Severe thrombocytopenia R pinna cellilits responding to current empiric abx Upper lip crusted lesion - not improving, somewhat worse - acyclovitr started - HSV1+ Fever - resolved bl clx not obtained REC's: patrick childers, cont cefepime for now - will lela nguyen if remains afbbrile cont acyclovir Roseann Ham MD May 27, 2017 19:12
[2017-05-27] MEDS: POTASSIUM CHLORIDE 20 MEQ CONTROLLED RELEASE TAB PO SCH (19:49)
[2017-05-27 20:00] VITALS: BP 141/65; PULSE 73; RESP 16; TEMP 98; O2SAT 95
[2017-05-27] MEDS ORDERED: ALTEPLASE RECOMBINANT 2 MG VIAL IV FLUSH ONE (23:29)
[2017-05-28] VITALS (7 sets, daily range): BP systolic 101–157; BP diastolic 56–72; PULSE 69–78; RESP 16–18; TEMP 97.3–99.3; O2SAT 93–95
[2017-05-28] MEDS: CEFEPIME INJ 2,000 MG in SODIUM CHLORIDE 0.9% INJ 100 ML IV SCH ×2 (00:46→14:04)
[2017-05-28] MEDS: PROMACTA 50 MG PO SCH (05:07)
[2017-05-28] MEDS: LEVOTHYROXINE SODIUM 50 MCG TAB PO SCH (05:09)
[2017-05-28] MEDS: CLOTRIMAZOLE 10 MG TROCHE BUCCAL SCH ×5 (05:09→21:46)
[2017-05-28] MEDS: cycloSPORINE 100 MG CAP PO SCH ×2 (05:09→17:15)
[2017-05-28] MEDS: cycloSPORINE 25 MG CAP PO SCH ×2 (05:09→17:13)
[2017-05-28] MEDS: ACYCLOVIR IV SCH ×2 (08:13→15:20)
[2017-05-28] MEDS: PRAVASTATIN SOD 10 MG TAB PO SCH (08:13)
[2017-05-28] MEDS: DOCUSATE SODIUM 50 MG/SENNA 8.6 MG TAB PO SCH ×2 (08:13→21:46)
[2017-05-28] MEDS: SODIUM CHLORIDE 0.9% IV SCH ×2 (08:13→15:20)
[2017-05-28] MEDS: POTASSIUM CHLORIDE 20 MEQ CONTROLLED RELEASE TAB PO SCH ×2 (08:13→21:46)
[2017-05-28] MEDS: PANTOPRAZOLE SOD 40 MG DELAYED RELEASE TAB PO SCH ×2 (08:13→21:46)
[2017-05-28] MEDS: SODIUM CHLORIDE 0.9% FLUSH 10 ML FLUSH IV FLUSH SCH ×2 (08:14→21:46)
[2017-05-28] MEDS: AMIODARONE 200 MG TAB PO SCH (08:14)
[2017-05-28] MEDS: FUROSEMIDE 20 MG TAB PO SCH ×2 (08:14→18:00)
[2017-05-28 08:15] LABS: MEAN CORPUSCULAR HGB CONC 36.1 % (32.0-36.0)
--- NOTE | 2017-05-28 08:47 | PD.ONC.PN ---
Subjective Subjective Remarks Afebrile overnight Denies any acute complaints In good spirits Objective Data Date Time Temp Pulse Resp B/P Pulse Ox O2 Delivery O2 Flow Rate FiO2 05/28/17 04:00 97.9 70 16 150/70 94 05/28/17 00:00 97.9 69 17 157/72 94 05/27/17 20:00 98.0 73 16 141/65 95 05/27/17 16:00 97.3 107 16 142/74 95 05/27/17 12:00 98.8 76 19 116/59 94 05/28/17 05/28/17 05/28/17 07:00 15:00 23:00 Intake Total 240 ml Balance 240 ml Result Diagram: 05/27/17 0505 05/27/17 0505 Administered Medications Medications (Trade) Dose Ordered Sig/José Route PRN Reason Start Time Stop Time Status Last Admin Dose Admin Sodium Chloride (NS Flush) 2 ml BID IV FLUSH 05/18/17 21:00 05/28/17 08:14 Senna/Docusate Sodium (Rosalinda-Colace) 1 tab BID PO 05/18/17 21:00 05/28/17 08:13 Amiodarone HCl (Cordarone) 200 mg DAILY PO 05/19/17 09:00 05/28/17 08:14 Levothyroxine Sodium (Synthroid) 50 mcg DAILY@0600 PO 05/19/17 06:00 05/28/17 05:09 Pantoprazole Sodium (Protonix) 40 mg BID PO 05/18/17 21:00 05/28/17 08:13 Pravastatin Sodium (Pravachol) 10 mg DAILY PO 05/19/17 09:00 05/28/17 08:13 Diphenhydramine HCl (Benadryl) 25 mg Q4H PRN PO FOR BLOOD PRODUCTS 05/19/17 01:30 05/25/17 15:36 Acetaminophen (Tylenol) 650 mg Q4H PRN PO FOR BLOOD PRODUCTS 05/19/17 01:30 05/25/17 15:36 Cyclosporine (SandIMMUNE) 300 mg BID@ PO 05/20/17 06:00 06/02/17 18:01 05/28/17 05:09 Cyclosporine (SandIMMUNE) 50 mg BID@ PO 05/20/17 06:00 06/02/17 18:01 05/28/17 05:09 Methylprednisolone 40 mg 40 mg DAILY PO 05/24/17 09:00 06/01/17 09:01 05/28/17 08:14 Cefepime HCl/ Sodium Chloride (Maxipime Inj/NS Inj) 100 ml @ 200 mls/hr Q12H IV 05/20/17 14:00 05/28/17 00:46 Furosemide 20 mg 20 mg BID@,18 PO 05/23/17 18:00 05/28/17 08:14 Filgrastim 300 mcg/Dextrose 25 ml @ 100 mls/hr DAILY@14 IV 05/24/17 20:00 05/27/17 15:03 Acyclovir Sodium/ Sodium Chloride (Zovirax Inj/NS Inj) 50 ml @ 50 mls/hr Q8H IV 05/25/17 16:00 05/28/17 08:13 Patient Own Medication PT OWN MED: Proma... DAILY@06 PO 05/26/17 06:00 05/28/17 05:07 Potassium Chloride (KCl) 20 meq DAILY PO 05/27/17 20:00 05/28/17 08:13 Objective Remarks GENERAL: Pleasant female lying in bed in nad. 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 HEAD: Normocephalic. Scab on right upper lip. EYES: No injection or drainage. NECK: Supple, trachea midline. CARDIOVASCULAR: +S1/S2. No murmur noted. RESPIRATORY: Breath sounds equal bilaterally. No accessory muscle use. GASTROINTESTINAL: Abdomen soft, non-tender, nondistended. EXTREMITIES: No cyanosis. No edema. NEUROLOGICAL: Normal speech. Moving all extremities. No obvious focal deficit. Assessment/Plan Problem List: (1) Pancytopenia Status: Acute Plan: -- +aplastic anemia -- bone marrow biopsy results show aplastic anemia --05/21/17: ATG and cyclosporine Day 1, had some rigors during ATG which resolved with demerol. Promacta started --05/22/17: continue ATG and cyclosporine. continue Promacta --05/23/17: continue ATG and cyclosporine Day 3. continue Promacta. --05/24/17: last day of ATG and cyclosporine. Neupogen started --05/25: give 1 unit pRBC and 1 unit platelets --05/26: no transfusion today. --05/27: counts stable. WBC improving. neutrophils remain 0 --05/28: (2) Cellulitis of ear Status: Acute Plan: --on Vanco and Cefepime (3) Lip lesion Status: Acute Plan: --suspect herpetic lesion --on Acyclovir Assessment 82-year-old female with anemia brought in for immunosuppressive treatment Plan 1. No evidence of serum sickness 2. Transfuse irradiated platelets today for level of 18K. 3. Daily CBC 4. Can be discharged once ANC greater than 1000. 5. Appreciate infectious disease input on home medications once ready for discharge. Attending Statement The exam, history, and the medical decision-making described in the above note were completed with the assistance of the mid-level provider. I reviewed and agree with the findings presented. I attest that I had a [id number] encounter with the patient on the same day, and personally performed and documented my assessment and findings in the medical record. aplastic anemia s/p ATG-on cyclosporine severely neutropenic afebrile transfuse 1 unit of platelets continue Neupogen and IV antibiotics d/w Merry Shine May 28, 2017 08:47 Pritesh Gordon MD May 29, 2017 00:24
[2017-05-28 11:42] LABS: HEMATOCRIT 25.1 % (35.0-46.0); MEAN CELL VOLUME 83.7 FL (80.0-100.0); MEAN CORPUSCULAR HEMOGLOBIN 30.2 PG (27.0-34.0); RED CELL DISTRIBUTION WIDTH 13.6 % (11.6-17.2)
[2017-05-28 11:44] LABS: HEMO FLAGS AUTO DIFF
[2017-05-28 11:55] LABS: PLATELET COUNT 18 TH/MM3 (150-450)
[2017-05-28 12:14] LABS: PLATELET ESTIMATE SMEAR RARE (NORMAL); PLATELET MORPHOLOGY NORMAL (NORMAL); SCAN/DIFF FINAL DIFF MANUAL; WBC DIFF SAMPLE 100
[2017-05-28] MEDS ORDERED: SODIUM CHLOR 0.9% 250 ML INJ 250 ML IV ONE (12:30)
[2017-05-28] MEDS ORDERED: ACETAMINOPHEN 325 MG TAB PO PRN (12:30)
[2017-05-28] MEDS ORDERED: diphenhydrAMINE HCL 25 MG CAP PO PRN (12:30)
[2017-05-28] MEDS: FILGRASTIM INJ 300 MCG in DEXTROSE 5% IN WATER INJ 24 ML IV SCH ×2 (14:47)
[2017-05-28] MEDS: diphenhydrAMINE HCL 25 MG CAP PO PRN (15:18)
[2017-05-28] MEDS: ACETAMINOPHEN 325 MG TAB PO PRN (15:19)
--- NOTE | 2017-05-28 17:22 | HHI.PR ---
Subjective Interval History Alert, oriented, feels well, less right ear pain, less upper lip swelling Review of Systems Constitutional Constitutional Remarks 10 systems reviewed otherwise negative Vitals/Results Intake & Output 05/27/17 05/27/17 05/28/17 14:59 22:59 06:59 Intake Total 614 ml 240 ml Balance 614 ml 240 ml Intake Oral 480 ml 240 ml IV Total 134 ml # Voids 4 4 # Bowel Movements 1 Vital Signs Vital Signs Date Time Temp Pulse Resp B/P Pulse Ox O2 Delivery O2 Flow Rate FiO2 05/28/17 16:58 97.3 71 16 101/56 95 05/28/17 12:00 99.3 76 18 140/71 94 05/28/17 08:00 97.7 75 18 150/65 95 05/28/17 04:00 97.9 70 16 150/70 94 05/28/17 00:00 97.9 69 17 157/72 94 05/27/17 20:00 98.0 73 16 141/65 95 CBC/BMP: 05/28/17 1045 05/27/17 0505 Lab Results Laboratory Tests Test 05/28/17 05/28/17 10:45 13:38 White Blood Count 2.0 TH/MM3 Red Blood Count 3.00 MIL/MM3 Hemoglobin 9.0 GM/DL Hematocrit 25.1 % Mean Corpuscular Volume 83.7 FL Mean Corpuscular Hemoglobin 30.2 PG Mean Corpuscular Hemoglobin 36.1 % Concent Red Cell Distribution Width 13.6 % Platelet Count 18 TH/MM3 Mean Platelet Volume 8.1 FL Neutrophils (%) (Auto) % Lymphocytes (%) (Auto) % Monocytes (%) (Auto) % Eosinophils (%) (Auto) % Basophils (%) (Auto) % Neutrophils # (Auto) TH/MM3 Lymphocytes # (Auto) TH/MM3 Monocytes # (Auto) TH/MM3 Eosinophils # (Auto) TH/MM3 Basophils # (Auto) TH/MM3 CBC Comment AUTO DIFF Differential Total Cells 100 Counted Lymphocytes % 98 % Monocytes % 2 % Neutrophils # (Manual) 0.0 TH/MM3 Differential Comment FINAL DIFF MANUAL Platelet Estimate RARE Platelet Morphology Comment NORMAL Blood Bank Comment Physical Exam General General Appearance: Well Developed, Comfortable Eyes Eye Exam: Pupils Reactive Ears & Nose Ears & Nose Exam: Nasal Mucosa [place] Ears & Nose Remarks Right external ear cellulitis, swollen upper lip Throat Throat Exam: Oral Mucosa [place] & Moist Neck Neck Exam: Trachea Midline Pulmonary Resp Exam: Clear Bilaterally, Breath Sounds Equal, No Distress Cardiology CV Exam: Good Perfusion, Irregular Gastrointestinal/Abdomen GI Exam: Soft, Non-Tender, Bowel Sounds Present Musculoskeletal MS Exam: Normal Tone Integumentary Skin Exam: Warm, Dry (is a) Skin Remarks Extensive ecchymoses Neurologic Neuro Exam: Alert, Awake, Oriented, Speech Clear, 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, 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, 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 Psychiatric Psych Exam: Appropriate Responses VTE Prophylaxis VTE Remarks anticoagulation is contraindicated, both chemical (because of risk of bleeding )and mechanical (because of risk of bruising/ecchymoses/bleeding ) PUD Prophylasis PUD Prophylaxis: Protonix Assessment/Plan Assessment/Plan Assessment Hypokalemia Edema to his upper lip, improved Right external ear cellulitis, Leukopenia, absolute neutrophil count is still 0 Symptomatic anemia, Improved after transfusion Severe profound symptomatic thrombocytopenia, given platelets again today Uncontrolled aplastic anemia Acellular bone marrow per biopsy report Status post bone marrow biopsy 05/18/17 Recent diagnosis of atrial fibrillation Recent diagnosis of gastric erosions Management Replace potassium Acyclovir Vancomycin Cefepime Lisinopril for blood pressure control Lasix 20 mg twice a day Replace potassium as needed Antibiotics per ID Chemotherapy Telemetry discontinued Follow complete blood count Follow electrolytes and replace as needed Continue proton pump inhibitor Discussed with patient Discussed with nurse Infectious disease and oncology following 35 minutes spent Elan Espinoza MD May 28, 2017 17:22
[2017-05-29] VITALS: BP 130/60; PULSE 71; RESP 16; TEMP 96.9; O2SAT 96
[2017-05-29] MEDS: SODIUM CHLORIDE 0.9% IV SCH ×3 (00:21→16:13)
[2017-05-29] MEDS: ACYCLOVIR IV SCH ×3 (00:21→16:13)
[2017-05-29] MEDS: CEFEPIME INJ 2,000 MG in SODIUM CHLORIDE 0.9% INJ 100 ML IV SCH ×2 (01:58→14:18)
[2017-05-29 04:00] VITALS: BP 150/66; PULSE 74; RESP 16; TEMP 97.9; O2SAT 96
[2017-05-29] MEDS: LEVOTHYROXINE SODIUM 50 MCG TAB PO SCH (05:38)
[2017-05-29] MEDS: CLOTRIMAZOLE 10 MG TROCHE BUCCAL SCH ×5 (05:38→21:39)
[2017-05-29] MEDS: cycloSPORINE 25 MG CAP PO SCH ×2 (05:39→18:02)
[2017-05-29] MEDS: PROMACTA 50 MG PO SCH (05:40)
[2017-05-29] MEDS: cycloSPORINE 100 MG CAP PO SCH ×2 (05:45→18:02)
[2017-05-29 07:41] LABS: HEMATOCRIT 23.9 % (35.0-46.0); MEAN CELL VOLUME 84.4 FL (80.0-100.0); MEAN CORPUSCULAR HEMOGLOBIN 29.4 PG (27.0-34.0); MEAN CORPUSCULAR HGB CONC 34.8 % (32.0-36.0); PLATELET COUNT 42 TH/MM3 (150-450); RED BLOOD COUNT 2.83 MIL/MM3 (4.00-5.30); RED CELL DISTRIBUTION WIDTH 13.5 % (11.6-17.2); WHITE BLOOD COUNT 2.8 TH/MM3 (4.0-11.0)
[2017-05-29 07:55] LABS: HEMO FLAGS AUTO DIFF
[2017-05-29 08:00] VITALS: BP 142/66; PULSE 75; RESP 18; TEMP 99.5; O2SAT 95
[2017-05-29 08:00] LABS: BICARBONATE 31.1 MEQ/L (21.0-32.0); POTASSIUM 3.8 MEQ/L (3.5-5.1)
[2017-05-29 08:24] LABS: WBC DIFF SAMPLE 100
[2017-05-29 08:26] LABS: PLATELET ESTIMATE SMEAR LOW (NORMAL); PLATELET MORPHOLOGY NORMAL (NORMAL); SCAN/DIFF FINAL DIFF MANUAL
[2017-05-29] MEDS: PANTOPRAZOLE SOD 40 MG DELAYED RELEASE TAB PO SCH ×2 (09:23→21:39)
[2017-05-29] MEDS: FUROSEMIDE 20 MG TAB PO SCH ×2 (09:23→18:03)
[2017-05-29] MEDS: DOCUSATE SODIUM 50 MG/SENNA 8.6 MG TAB PO SCH ×2 (09:24→21:39)
[2017-05-29] MEDS: SODIUM CHLORIDE 0.9% FLUSH 10 ML FLUSH IV FLUSH SCH ×2 (09:24→21:39)
[2017-05-29] MEDS: POTASSIUM CHLORIDE 20 MEQ CONTROLLED RELEASE TAB PO SCH ×2 (09:24→21:39)
[2017-05-29] MEDS: AMIODARONE 200 MG TAB PO SCH (09:24)
[2017-05-29] MEDS: PRAVASTATIN SOD 10 MG TAB PO SCH (09:24)
--- NOTE | 2017-05-29 10:15 | PD.ONC.PN ---
Subjective Subjective Remarks Afebrile overnight Pt c/o "boredom" No new bruising or bleeding. Objective Data Date Time Temp Pulse Resp B/P Pulse Ox O2 Delivery O2 Flow Rate FiO2 05/29/17 08:00 99.5 75 18 142/66 95 05/29/17 04:00 97.9 74 16 150/66 96 05/29/17 00:00 96.9 71 16 130/60 96 05/28/17 20:00 97.4 74 16 119/59 93 05/28/17 16:58 97.3 71 16 101/56 95 05/28/17 16:00 98.6 78 18 106/56 94 05/28/17 12:00 99.3 76 18 140/71 94 05/29/17 05/29/17 05/29/17 07:00 15:00 23:00 Intake Total 415 ml Output Total 450 ml Balance -35 ml Result Diagram: 05/29/17 0525 05/29/17 0525 Laboratory Results Laboratory Tests Test 05/28/17 05/28/17 05/29/17 10:45 13:38 05:25 White Blood Count 2.0 TH/MM3 2.8 TH/MM3 Red Blood Count 3.00 MIL/MM3 2.83 MIL/MM3 Hemoglobin 9.0 GM/DL 8.3 GM/DL Hematocrit 25.1 % 23.9 % Mean Corpuscular Volume 83.7 FL 84.4 FL Mean Corpuscular Hemoglobin 30.2 PG 29.4 PG Mean Corpuscular Hemoglobin 36.1 % 34.8 % Concent Red Cell Distribution Width 13.6 % 13.5 % Platelet Count 18 TH/MM3 42 TH/MM3 Mean Platelet Volume 8.1 FL 7.6 FL Neutrophils (%) (Auto) % % Lymphocytes (%) (Auto) % % Monocytes (%) (Auto) % % Eosinophils (%) (Auto) % % Basophils (%) (Auto) % % Neutrophils # (Auto) TH/MM3 TH/MM3 Lymphocytes # (Auto) TH/MM3 TH/MM3 Monocytes # (Auto) TH/MM3 TH/MM3 Eosinophils # (Auto) TH/MM3 TH/MM3 Basophils # (Auto) TH/MM3 TH/MM3 CBC Comment AUTO DIFF AUTO DIFF Differential Total Cells 100 100 Counted Lymphocytes % 98 % 100 % Monocytes % 2 % Neutrophils # (Manual) 0.0 TH/MM3 0.0 TH/MM3 Differential Comment FINAL DIFF FINAL DIFF MANUAL MANUAL Platelet Estimate RARE LOW Platelet Morphology Comment NORMAL NORMAL Blood Bank Comment Sodium Level 141 MEQ/L Potassium Level 3.8 MEQ/L Chloride Level 103 MEQ/L Carbon Dioxide Level 31.1 MEQ/L Anion Gap 7 MEQ/L Blood Urea Nitrogen 28 MG/DL Creatinine 0.51 MG/DL Estimat Glomerular Filtration 115 ML/MIN Rate Random Glucose 87 MG/DL Calcium Level 8.5 MG/DL Administered Medications Medications (Trade) Dose Ordered Sig/José Route PRN Reason Start Time Stop Time Status Last Admin Dose Admin Sodium Chloride (NS Flush) 2 ml BID IV FLUSH 05/18/17 21:00 05/29/17 09:24 Senna/Docusate Sodium (Rosalinda-Colace) 1 tab BID PO 05/18/17 21:00 05/29/17 09:24 Amiodarone HCl (Cordarone) 200 mg DAILY PO 05/19/17 09:00 05/29/17 09:24 Levothyroxine Sodium (Synthroid) 50 mcg DAILY@0600 PO 05/19/17 06:00 05/29/17 05:38 Pantoprazole Sodium (Protonix) 40 mg BID PO 05/18/17 21:00 05/29/17 09:23 Pravastatin Sodium (Pravachol) 10 mg DAILY PO 05/19/17 09:00 05/29/17 09:24 Diphenhydramine HCl (Benadryl) 25 mg Q4H PRN PO FOR BLOOD PRODUCTS 05/19/17 01:30 05/28/17 15:18 Acetaminophen (Tylenol) 650 mg Q4H PRN PO FOR BLOOD PRODUCTS 05/19/17 01:30 05/28/17 15:19 Cyclosporine (SandIMMUNE) 300 mg BID@ PO 05/20/17 06:00 06/02/17 18:01 05/29/17 05:45 Cyclosporine (SandIMMUNE) 50 mg BID@,18 PO 05/20/17 06:00 06/02/17 18:01 05/29/17 05:39 Methylprednisolone 40 mg 40 mg DAILY PO 05/24/17 09:00 06/01/17 09:01 05/29/17 09:23 Cefepime HCl/ Sodium Chloride (Maxipime Inj/NS Inj) 100 ml @ 200 mls/hr Q12H IV 05/20/17 14:00 05/29/17 01:58 Furosemide 20 mg 20 mg BID@,18 PO 05/23/17 18:00 05/29/17 09:23 Filgrastim 300 mcg/Dextrose 25 ml @ 100 mls/hr DAILY@14 IV 05/24/17 20:00 05/28/17 14:47 Acyclovir Sodium/ Sodium Chloride (Zovirax Inj/NS Inj) 50 ml @ 50 mls/hr Q8H IV 05/25/17 16:00 05/29/17 09:23 Patient Own Medication PT OWN MED: Proma... DAILY@06 PO 05/26/17 06:00 05/29/17 05:40 Potassium Chloride (KCl) 20 meq BID PO 05/28/17 21:00 05/29/17 09:24 Objective Remarks GENERAL: Pleasant female lying in bed watching TV in no distress. 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 HEAD: Normocephalic. Scab on right upper lip. EYES: No injection or drainage. NECK: Supple, trachea midline. CARDIOVASCULAR: +S1/S2. No murmur noted. RESPIRATORY: Breath sounds equal bilaterally. No accessory muscle use. GASTROINTESTINAL: Abdomen soft, non-tender, nondistended. EXTREMITIES: No cyanosis. No edema. Scattered ecchymoses to extremities. NEUROLOGICAL: Normal speech. Moving all extremities. No obvious focal deficit. Assessment/Plan Problem List: (1) Pancytopenia Status: Acute Plan: -- +aplastic anemia -- bone marrow biopsy results show aplastic anemia --05/21/17: ATG and cyclosporine Day 1, had some rigors during ATG which resolved with demerol. Promacta started --05/22/17: continue ATG and cyclosporine. continue Promacta --05/23/17: continue ATG and cyclosporine Day 3. continue Promacta. --05/24/17: last day of ATG and cyclosporine. Neupogen started --05/25: give 1 unit pRBC and 1 unit platelets --05/26: no transfusion today. --05/27: counts stable. WBC improving. neutrophils remain 0 --05/28: Transfuse 1 unit Platelets for count of 18k. --05/29: Counts stable. No transfusion. 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 No transfusions today 2. Continue Acyclovir for HSV1+ lip lesion. 3. Daily CBC 4. Continue Neupogen. Can be d/c'd once ANC > 1000. 5. Supportive care. Attending Statement The exam, history, and the medical decision-making described in the above note were completed with the assistance of the mid-level provider. I reviewed and agree with the findings presented. I attest that I had a [id number] encounter with the patient on the same day, and personally performed and documented my assessment and findings in the medical record. Merry Hebert May 29, 2017 10:15 Pritesh Gordon MD May 29, 2017 16:41
[2017-05-29 12:00] VITALS: BP 121/59; PULSE 78; RESP 18; TEMP 97.7; O2SAT 94
[2017-05-29] MEDS: FILGRASTIM INJ 300 MCG in DEXTROSE 5% IN WATER INJ 24 ML IV SCH ×2 (14:55)
[2017-05-29 16:00] VITALS: BP 145/78; PULSE 76; RESP 18; TEMP 99.5; O2SAT 94
--- NOTE | 2017-05-29 16:12 | HHI.PR ---
Subjective Interval History Alert, oriented, denies complaints, upper lip and right ear feel much better Review of Systems Constitutional Constitutional Remarks 10 systems reviewed otherwise negative Vitals/Results Intake & Output 05/28/17 05/28/17 05/29/17 14:59 22:59 06:59 Intake Total 840 ml 770 ml 415 ml Output Total 450 ml Balance 840 ml 770 ml -35 ml Intake Oral 840 ml 480 ml 240 ml IV Total 175 ml Platelets 290 ml Output Urine Total 450 ml # Voids 3 4 # Bowel Movements 1 Vital Signs Vital Signs Date Time Temp Pulse Resp B/P Pulse Ox O2 Delivery O2 Flow Rate FiO2 05/29/17 12:00 97.7 78 18 121/59 94 05/29/17 08:00 99.5 75 18 142/66 95 05/29/17 04:00 97.9 74 16 150/66 96 05/29/17 00:00 96.9 71 16 130/60 96 05/28/17 20:00 97.4 74 16 119/59 93 05/28/17 16:58 97.3 71 16 101/56 95 CBC/BMP: 05/29/17 0525 05/29/17 0525 Lab Results Laboratory Tests Test 05/29/17 05:25 White Blood Count 2.8 TH/MM3 Red Blood Count 2.83 MIL/MM3 Hemoglobin 8.3 GM/DL Hematocrit 23.9 % Mean Corpuscular Volume 84.4 FL Mean Corpuscular Hemoglobin 29.4 PG Mean Corpuscular Hemoglobin 34.8 % Concent Red Cell Distribution Width 13.5 % Platelet Count 42 TH/MM3 Mean Platelet Volume 7.6 FL Neutrophils (%) (Auto) % Lymphocytes (%) (Auto) % Monocytes (%) (Auto) % Eosinophils (%) (Auto) % Basophils (%) (Auto) % Neutrophils # (Auto) TH/MM3 Lymphocytes # (Auto) TH/MM3 Monocytes # (Auto) TH/MM3 Eosinophils # (Auto) TH/MM3 Basophils # (Auto) TH/MM3 CBC Comment AUTO DIFF Differential Total Cells 100 Counted Lymphocytes % 100 % Neutrophils # (Manual) 0.0 TH/MM3 Differential Comment FINAL DIFF MANUAL Platelet Estimate LOW Platelet Morphology Comment NORMAL Sodium Level 141 MEQ/L Potassium Level 3.8 MEQ/L Chloride Level 103 MEQ/L Carbon Dioxide Level 31.1 MEQ/L Anion Gap 7 MEQ/L Blood Urea Nitrogen 28 MG/DL Creatinine 0.51 MG/DL Estimat Glomerular Filtration 115 ML/MIN Rate Random Glucose 87 MG/DL Calcium Level 8.5 MG/DL Physical Exam General General Appearance: Well Developed, Comfortable Eyes Eye Exam: Pupils Reactive Ears & Nose Ears & Nose Exam: Nasal Mucosa [place] Ears & Nose Remarks Right external ear cellulitis, looks better, swollen upper lip also looks better Throat Throat Exam: Oral Mucosa [place] & Moist Neck Neck Exam: Trachea Midline Pulmonary Resp Exam: Clear Bilaterally, Breath Sounds Equal, No Distress Cardiology CV Exam: Good Perfusion, Irregular Gastrointestinal/Abdomen GI Exam: Soft, Non-Tender, Bowel Sounds Present Musculoskeletal MS Exam: Normal Tone Integumentary Skin Exam: Warm, Dry (is a) Skin Remarks Extensive ecchymoses Neurologic Neuro Exam: Alert, Awake, Oriented, Speech Clear, 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, Deskidding Machine Operator Equal, 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 Psychiatric Psych Exam: Appropriate Responses VTE Prophylaxis VTE Remarks anticoagulation is contraindicated, both chemical (because of risk of bleeding )and mechanical (because of risk of bruising/ecchymoses/bleeding ) PUD Prophylasis PUD Prophylaxis: Protonix Assessment/Plan Assessment/Plan Assessment Still has 0 absolute neutrophils 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, secondary to herpes simplex type I, improved Right external ear cellulitis, Leukopenia, Symptomatic anemia, Improved after transfusion Severe profound symptomatic thrombocytopenia, given platelets again today Uncontrolled aplastic anemia Acellular bone marrow per biopsy report Status post bone marrow biopsy 05/18/17 Recent diagnosis of atrial fibrillation Recent diagnosis of gastric erosions Management Replace potassium as needed Acyclovir Vancomycin Cefepime Leukocyte stimulating agent Lisinopril for blood pressure control Lasix 20 mg twice a day Replace potassium as needed Antibiotics per ID Chemotherapy Follow complete blood count Follow electrolytes and replace as needed Continue proton pump inhibitor Discussed with patient Discussed with nurse Infectious disease and oncology following 35 minutes spent Elan Espinoza MD May 29, 2017 16:12
[2017-05-29 20:00] VITALS: BP 121/63; PULSE 70; RESP 16; TEMP 98.1; O2SAT 94
[2017-05-30] VITALS: BP 157/75; PULSE 68; RESP 17; TEMP 97; O2SAT 95
[2017-05-30] MEDS: ACYCLOVIR IV SCH ×3 (00:13→17:21)
[2017-05-30] MEDS: SODIUM CHLORIDE 0.9% IV SCH ×3 (00:13→17:21)
[2017-05-30] MEDS: CEFEPIME INJ 2,000 MG in SODIUM CHLORIDE 0.9% INJ 100 ML IV SCH ×2 (01:50→14:00)
[2017-05-30 04:00] VITALS: BP 133/63; PULSE 68; RESP 16; TEMP 98.4; O2SAT 97
[2017-05-30] MEDS: LEVOTHYROXINE SODIUM 50 MCG TAB PO SCH (05:44)
[2017-05-30] MEDS: cycloSPORINE 25 MG CAP PO SCH ×2 (05:44→18:44)
[2017-05-30] MEDS: CLOTRIMAZOLE 10 MG TROCHE BUCCAL SCH ×5 (05:44→20:36)
[2017-05-30] MEDS: cycloSPORINE 100 MG CAP PO SCH ×3 (05:44→20:37)
[2017-05-30] MEDS: PROMACTA 50 MG PO SCH (05:45)
[2017-05-30 06:46] LABS: HEMATOCRIT 22.9 % (35.0-46.0); LYMPH % 98.9 % (9.0-44.0); LYMPHOCYTE # 2.8 TH/MM3 (1.0-4.8); MEAN CELL VOLUME 83.9 FL (80.0-100.0); MEAN CORPUSCULAR HEMOGLOBIN 29.5 PG (27.0-34.0); MEAN CORPUSCULAR HGB CONC 35.2 % (32.0-36.0); MONO % 0.9 % (0.0-8.0); NEUT % 0.2 % (16.0-70.0); PLATELET COUNT 24 TH/MM3 (150-450); RED BLOOD COUNT 2.73 MIL/MM3 (4.00-5.30); RED CELL DISTRIBUTION WIDTH 13.6 % (11.6-17.2); WHITE BLOOD COUNT 2.9 TH/MM3 (4.0-11.0)
[2017-05-30 06:47] LABS: HEMO FLAGS AUTO DIFF
[2017-05-30 07:33] LABS: WBC DIFF SAMPLE 100
[2017-05-30 07:34] LABS: PLATELET ESTIMATE SMEAR LOW (NORMAL); PLATELET MORPHOLOGY NORMAL (NORMAL); SCAN/DIFF FINAL DIFF MANUAL
[2017-05-30 08:35] VITALS: BP 139/72; PULSE 80; RESP 18; TEMP 100.1; O2SAT 93
[2017-05-30] MEDS: DOCUSATE SODIUM 50 MG/SENNA 8.6 MG TAB PO SCH ×2 (09:00→20:37)
[2017-05-30] MEDS: PANTOPRAZOLE SOD 40 MG DELAYED RELEASE TAB PO SCH ×2 (10:13→20:36)
[2017-05-30] MEDS: FUROSEMIDE 20 MG TAB PO SCH ×2 (10:13→18:44)
[2017-05-30] MEDS: POTASSIUM CHLORIDE 20 MEQ CONTROLLED RELEASE TAB PO SCH ×2 (10:13→20:37)
[2017-05-30] MEDS: AMIODARONE 200 MG TAB PO SCH (10:13)
[2017-05-30] MEDS: PRAVASTATIN SOD 10 MG TAB PO SCH (10:14)
[2017-05-30] MEDS: SODIUM CHLORIDE 0.9% FLUSH 10 ML FLUSH IV FLUSH SCH ×2 (10:15→20:39)
--- NOTE | 2017-05-30 12:52 | PD.ONC.PN ---
Subjective Subjective Remarks Tmax 102.4 this afternoon. Patient says she feels bored. No chills. Tolerating antibiotics. Objective Data Date Time Temp Pulse Resp B/P Pulse Ox O2 Delivery O2 Flow Rate FiO2 05/30/17 08:35 100.1 80 18 139/72 93 05/30/17 04:00 98.4 68 16 133/63 97 05/30/17 00:00 97.0 68 17 157/75 95 05/29/17 20:00 98.1 70 16 121/63 94 05/29/17 16:00 99.5 76 18 145/78 94 05/30/17 05/30/17 05/30/17 06:59 14:59 22:59 Intake Total 440 ml Balance 440 ml Result Diagram: 05/30/17 0540 05/29/17 0525 Laboratory Results Laboratory Tests Test 05/30/17 05:40 White Blood Count 2.9 TH/MM3 Red Blood Count 2.73 MIL/MM3 Hemoglobin 8.1 GM/DL Hematocrit 22.9 % Mean Corpuscular Volume 83.9 FL Mean Corpuscular Hemoglobin 29.5 PG Mean Corpuscular Hemoglobin 35.2 % Concent Red Cell Distribution Width 13.6 % Platelet Count 24 TH/MM3 Mean Platelet Volume 7.8 FL Neutrophils (%) (Auto) 0.2 % Lymphocytes (%) (Auto) 98.9 % Monocytes (%) (Auto) 0.9 % Eosinophils (%) (Auto) 0.0 % Basophils (%) (Auto) 0.0 % Neutrophils # (Auto) 0.0 TH/MM3 Lymphocytes # (Auto) 2.8 TH/MM3 Monocytes # (Auto) 0.0 TH/MM3 Eosinophils # (Auto) 0.0 TH/MM3 Basophils # (Auto) 0.0 TH/MM3 CBC Comment AUTO DIFF Differential Total Cells 100 Counted Lymphocytes % 100 % Differential Comment FINAL DIFF MANUAL Platelet Estimate LOW Platelet Morphology Comment NORMAL Red Cell Morphology Comment NORMAL Administered Medications Medications (Trade) Dose Ordered Sig/José Route PRN Reason Start Time Stop Time Status Last Admin Dose Admin Sodium Chloride (NS Flush) 2 ml UNSCH PRN IV FLUSH FLUSH AFTER USING IV ACCESS 05/18/17 10:15 05/30/17 10:15 Sodium Chloride (NS Flush) 2 ml BID IV FLUSH 05/18/17 21:00 05/30/17 10:15 Senna/Docusate Sodium (Rosalinda-Colace) 1 tab BID PO 05/18/17 21:00 05/29/17 09:24 Amiodarone HCl (Cordarone) 200 mg DAILY PO 05/19/17 09:00 05/30/17 10:13 Levothyroxine Sodium (Synthroid) 50 mcg DAILY@0600 PO 05/19/17 06:00 05/30/17 05:44 Pantoprazole Sodium (Protonix) 40 mg BID PO 05/18/17 21:00 05/30/17 10:13 Pravastatin Sodium (Pravachol) 10 mg DAILY PO 05/19/17 09:00 05/30/17 10:14 Diphenhydramine HCl (Benadryl) 25 mg Q4H PRN PO FOR BLOOD PRODUCTS 05/19/17 01:30 05/28/17 15:18 Acetaminophen (Tylenol) 650 mg Q4H PRN PO FOR BLOOD PRODUCTS 05/19/17 01:30 05/28/17 15:19 Cyclosporine (SandIMMUNE) 300 mg BID@ PO 05/20/17 06:00 06/02/17 18:01 05/30/17 05:44 Cyclosporine (SandIMMUNE) 50 mg BID@ PO 05/20/17 06:00 06/02/17 18:01 05/30/17 05:44 Methylprednisolone 40 mg 40 mg DAILY PO 05/24/17 09:00 06/01/17 09:01 05/30/17 10:13 Cefepime HCl/ Sodium Chloride (Maxipime Inj/NS Inj) 100 ml @ 200 mls/hr Q12H IV 05/20/17 14:00 05/30/17 01:50 Furosemide 20 mg 20 mg BID@ PO 05/23/17 18:00 05/30/17 10:13 Filgrastim 300 mcg/Dextrose 25 ml @ 100 mls/hr DAILY@14 IV 05/24/17 20:00 05/29/17 14:55 Acyclovir Sodium/ Sodium Chloride (Zovirax Inj/NS Inj) 50 ml @ 50 mls/hr Q8H IV 05/25/17 16:00 05/30/17 10:14 Patient Own Medication PT OWN MED: Proma... DAILY@06 PO 05/26/17 06:00 05/30/17 05:45 Potassium Chloride (KCl) 20 meq BID PO 05/28/17 21:00 05/30/17 10:13 Objective Remarks GENERAL: Pleasant female sitting up in bed in nad. 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 right ear with crusting and erythema HEAD: Normocephalic. scabbing lesion on lip persists EYES: No injection or drainage. NECK: Supple, trachea midline. CARDIOVASCULAR: +S1/S2 RESPIRATORY: Breath sounds equal bilaterally. No accessory muscle use. GASTROINTESTINAL: Abdomen soft, non-tender, nondistended. EXTREMITIES: No cyanosis NEUROLOGICAL: awake and alert, normal speech. moving all extremities. Assessment/Plan Problem List: (1) Pancytopenia Status: Acute Plan: -- +aplastic anemia -- bone marrow biopsy results show aplastic anemia --05/21/17: ATG and cyclosporine Day 1, had some rigors during ATG which resolved with demerol. Promacta started --05/22/17: continue ATG and cyclosporine. continue Promacta --05/23/17: continue ATG and cyclosporine Day 3. continue Promacta. --05/24/17: last day of ATG and cyclosporine. Neupogen started --05/25: give 1 unit pRBC and 1 unit platelets --05/26: no transfusion today. --05/27: counts stable. WBC improving. neutrophils remain 0 --05/28: Transfuse 1 unit Platelets for count of 18k. --05/29: Counts stable. No transfusion. --05/30: platelet count falling. no transfusion unless bleeding. 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 Ham--she will see patient today, recommends resuming Vancomycin --continue Cefepime and Acyclovir. Assessment 82-year-old female with anemia brought in for immunosuppressive treatment Plan 1. STAT blood cultures 2. continue Cefepime, Acyclovir, resume Vancomycin Attending Statement The exam, history, and the medical decision-making described in the above note were completed with the assistance of the mid-level provider. I reviewed and agree with the findings presented. I attest that I had a [id number] encounter with the patient on the same day, and personally performed and documented my assessment and findings in the medical record. Pt seen and examined. Looks tired. R ear lobe developed ulcer. Upper lip crusted, no change. Fevers noted, blood cultures still pending. Abx initiated and followed by ID, pt Neutrophils 0. Noted some recovery with stable hgb, stable platelet- no transfusion needed. WBC increase, GCSF continue in light of fever. Decrease methylprednisolone, no sign of serum sickness. Cont Promacta 150mg daily and Cyclosporine 350mg BID. Cecilia Hughes May 30, 2017 12:52 Luna Marie MD May 30, 2017 19:26
[2017-05-30 12:54] VITALS: BP 139/68; PULSE 82; RESP 18; TEMP 102.5; O2SAT 93
[2017-05-30] MEDS ORDERED: VANCOMYCIN INJ 1,000 MG in SODIUM CHLOR 0.9% 250 ML INJ 250 ML IV ONE (13:00)
[2017-05-30] MEDS ORDERED: Vancomycin Consult Pharmacy 1 EA OTHER SCH (13:00)
[2017-05-30] MEDS: ONDANSETRON HCL 4 MG/2 ML VIAL IVP PRN (13:58)
[2017-05-30] MEDS: ACETAMINOPHEN 325 MG TAB PO PRN (13:59)
[2017-05-30] MEDS: FILGRASTIM INJ 300 MCG in DEXTROSE 5% IN WATER INJ 24 ML IV SCH ×2 (14:00)
--- NOTE | 2017-05-30 14:50 | HHI.PR ---
Subjective Interval History Alert, oriented, complaining of right hallux pain and heat also complaining of a very mild bilateral nosebleed, vomited one time this morning after taking her pills Review of Systems Constitutional Constitutional Remarks 10 systems reviewed otherwise negative Vitals/Results Intake & Output 05/29/17 05/29/17 05/30/17 15:00 23:00 07:00 Intake Total 689 ml 440 ml Balance 689 ml 440 ml Intake Oral 480 ml 240 ml IV Total 209 ml 200 ml # Voids 5 3 Vital Signs Vital Signs Date Time Temp Pulse Resp B/P Pulse Ox O2 Delivery O2 Flow Rate FiO2 05/30/17 12:54 102.5 82 18 139/68 93 05/30/17 08:35 100.1 80 18 139/72 93 05/30/17 04:00 98.4 68 16 133/63 97 05/30/17 00:00 97.0 68 17 157/75 95 05/29/17 20:00 98.1 70 16 121/63 94 05/29/17 16:00 99.5 76 18 145/78 94 CBC/BMP: 05/30/17 0540 05/29/17 0525 Lab Results Laboratory Tests Test 05/30/17 05:40 White Blood Count 2.9 TH/MM3 Red Blood Count 2.73 MIL/MM3 Hemoglobin 8.1 GM/DL Hematocrit 22.9 % Mean Corpuscular Volume 83.9 FL Mean Corpuscular Hemoglobin 29.5 PG Mean Corpuscular Hemoglobin 35.2 % Concent Red Cell Distribution Width 13.6 % Platelet Count 24 TH/MM3 Mean Platelet Volume 7.8 FL Neutrophils (%) (Auto) 0.2 % Lymphocytes (%) (Auto) 98.9 % Monocytes (%) (Auto) 0.9 % Eosinophils (%) (Auto) 0.0 % Basophils (%) (Auto) 0.0 % Neutrophils # (Auto) 0.0 TH/MM3 Lymphocytes # (Auto) 2.8 TH/MM3 Monocytes # (Auto) 0.0 TH/MM3 Eosinophils # (Auto) 0.0 TH/MM3 Basophils # (Auto) 0.0 TH/MM3 CBC Comment AUTO DIFF Differential Total Cells 100 Counted Lymphocytes % 100 % Differential Comment FINAL DIFF MANUAL Platelet Estimate LOW Platelet Morphology Comment NORMAL Red Cell Morphology Comment NORMAL Physical Exam General General Appearance: Well Developed, Comfortable Eyes Eye Exam: Pupils Reactive Ears & Nose Ears & Nose Exam: Nasal Mucosa [place] Ears & Nose Remarks Right external ear cellulitis, looks better, swollen upper lip also looks better Throat Throat Exam: Oral Mucosa [place] & Moist Neck Neck Exam: Trachea Midline Pulmonary Resp Exam: Clear Bilaterally, Breath Sounds Equal, No Distress Cardiology CV Exam: Good Perfusion, Irregular Gastrointestinal/Abdomen GI Exam: Soft, Non-Tender, Bowel Sounds Present Musculoskeletal MS Exam: Normal Tone Integumentary Skin Exam: Warm, Dry (is a) Skin Remarks Extensive ecchymoses Extremeties Extremeties Remarks Tender right first metatarsal phalangeal joint with local heat Neurologic Neuro Exam: Alert, Awake, Oriented, Speech Clear, 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, Oral And Maxillofacial Pathologist Equal, 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 Psychiatric Psych Exam: Appropriate Responses VTE Prophylaxis VTE Remarks anticoagulation is contraindicated, both chemical (because of risk of bleeding )and mechanical (because of risk of bruising/ecchymoses/bleeding ) PUD Prophylasis PUD Prophylaxis: Protonix Assessment/Plan Assessment/Plan Assessment Mild epistaxis, likely secondary to thrombocytopenia Right great toe pain, rule out gout Still has 0 absolute neutrophils 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, secondary to herpes simplex type I, improved Right external ear cellulitis, Leukopenia, Symptomatic anemia, Improved after transfusion Severe profound symptomatic thrombocytopenia, given platelets again today Uncontrolled aplastic anemia Acellular bone marrow per biopsy report Status post bone marrow biopsy 05/18/17 Recent diagnosis of atrial fibrillation Recent diagnosis of gastric erosions Management Stat uric acid level Mupirocin cream for both nostrils Replace potassium as needed Acyclovir Vancomycin Cefepime Leukocyte stimulating agent Lisinopril for blood pressure control Lasix 20 mg twice a day Replace potassium as needed Antibiotics per ID Chemotherapy Follow complete blood count Follow electrolytes and replace as needed Continue proton pump inhibitor Discussed with patient Discussed with nurse Infectious disease and oncology following 35 minutes spent Elan Espinoza MD May 30, 2017 14:50
[2017-05-30 16:00] VITALS: BP 98/52; PULSE 75; RESP 18; TEMP 99.2; O2SAT 94
[2017-05-30] MEDS: MUPIROCIN 2% OINT 1 APPLIC/GM SYR EACH NARE SCH ×2 (17:23→20:40)
[2017-05-30] MEDS: VANCOMYCIN 1,000 MG/NS 250 ML IV SCH ×2 (18:43)
[2017-05-30 21:05] VITALS: BP 109/70; PULSE 94; RESP 20; TEMP 97.7; O2SAT 94
--- NOTE | 2017-05-30 21:36 | HHI.IDPN ---
Subjective Subjective Remarks ask by hem onc to see pt 2/2 new fever Pt spiked x1 to 102.5 ow no new complains ear is not hurting upper lip is healing vanco was resumed by hem/onc Antibiotics vanco cefpeime acyclovir Allergies: Coded Allergies: No Known Allergies (Verified , 05/08/17) Objective . Vital Signs Date Time Temp Pulse Resp B/P Pulse Ox O2 Delivery O2 Flow Rate FiO2 05/30/17 21:05 97.7 94 20 109/70 94 05/30/17 16:00 99.2 75 18 98/52 94 05/30/17 12:54 102.5 82 18 139/68 93 05/30/17 08:35 100.1 80 18 139/72 93 05/30/17 04:00 98.4 68 16 133/63 97 05/30/17 00:00 97.0 68 17 157/75 95 05/29/17 05/29/17 05/30/17 15:00 23:00 07:00 Intake Total 689 ml 440 ml Balance 689 ml 440 ml Intake Oral 480 ml 240 ml IV Total 209 ml 200 ml # Voids 5 3 . Laboratory Tests Test 05/29/17 05/30/17 05:25 05:40 White Blood Count 2.8 TH/MM3 2.9 TH/MM3 Red Blood Count 2.83 MIL/MM3 2.73 MIL/MM3 Hemoglobin 8.3 GM/DL 8.1 GM/DL Hematocrit 23.9 % 22.9 % Mean Corpuscular Volume 84.4 FL 83.9 FL Mean Corpuscular Hemoglobin 29.4 PG 29.5 PG Mean Corpuscular Hemoglobin 34.8 % 35.2 % Concent Red Cell Distribution Width 13.5 % 13.6 % Platelet Count 42 TH/MM3 24 TH/MM3 Mean Platelet Volume 7.6 FL 7.8 FL Neutrophils (%) (Auto) % 0.2 % Lymphocytes (%) (Auto) % 98.9 % Monocytes (%) (Auto) % 0.9 % Eosinophils (%) (Auto) % 0.0 % Basophils (%) (Auto) % 0.0 % Neutrophils # (Auto) TH/MM3 0.0 TH/MM3 Lymphocytes # (Auto) TH/MM3 2.8 TH/MM3 Monocytes # (Auto) TH/MM3 0.0 TH/MM3 Eosinophils # (Auto) TH/MM3 0.0 TH/MM3 Basophils # (Auto) TH/MM3 0.0 TH/MM3 CBC Comment AUTO DIFF AUTO DIFF Differential Total Cells 100 100 Counted Lymphocytes % 100 % 100 % Neutrophils # (Manual) 0.0 TH/MM3 Differential Comment FINAL DIFF FINAL DIFF MANUAL MANUAL Platelet Estimate LOW LOW Platelet Morphology Comment NORMAL NORMAL Red Cell Morphology Comment NORMAL Laboratory Tests Test 05/29/17 05:25 Sodium Level 141 MEQ/L Potassium Level 3.8 MEQ/L Chloride Level 103 MEQ/L Carbon Dioxide Level 31.1 MEQ/L Anion Gap 7 MEQ/L Blood Urea Nitrogen 28 MG/DL Creatinine 0.51 MG/DL Estimat Glomerular Filtration 115 ML/MIN Rate Random Glucose 87 MG/DL Calcium Level 8.5 MG/DL Microbiology Date/Time Procedure Status Source Growth 05/30/17 15:10 Aerobic Blood Culture Received Blood Line Pending 05/30/17 15:10 Anaerobic Blood Culture Received Blood Line Pending 05/30/17 15:10 Aerobic Blood Culture Received Blood Peripheral Pending 05/30/17 15:10 Anaerobic Blood Culture Received Blood Peripheral Pending Imaging Last Impressions Bone Biopsy CT 05/18/17 1456 Signed Impressions: Service Date/Time: Thursday, May 18, 2017 15:21 - CONCLUSION: 1. Uncomplicated CT guided bone marrow aspirate. 2. Uncomplicated CT guided bone marrow biopsy. Robert Cruz MD FACR PICC Line Insertion 05/18/17 0000 Signed Impressions: Service Date/Time: Thursday, May 18, 2017 13:31 - CONCLUSION: 1. Uncomplicated central venous Power PICC line placement. 2. The PICC line can be used immediately. Meliton Lerma MD Physical Exam CONSTITUTIONAL/GENERAL: This is an adequately nourished patient, in no apparent distress. TUBES/LINES/DRAINS: SKIN: No jaundice, or dissufe rash . Ecchymoses on upper extremities. No wounds seen anteriorly. Skin temperature appropriate. Not diaphoretic. EYES: Pupils equal and round and reactive. Extraocular motions intact. No scleral icterus. No injection or drainage. Fundi not examined. ENT: Hearing grossly normal. Nose without bleeding or purulent drainage. Oral mucosae without visible erythema, exudates, masses, or lesions. Crusted lesions on upper lip healing R pinna is with minimal residual scab, complete resolution of erythema and edema CARDIOVASCULAR: Regular rate and rhythm without murmurs, gallops, or rubs. No JVD. Peripheral pulses symmetric. RESPIRATORY/CHEST: Symmetric, unlabored respirations. Clear to auscultation. Breath sounds equal bilaterally. No wheezes, rales, or rhonchi. GASTROINTESTINAL: Abdomen soft, non-tender, nondistended. No hepato-splenomegaly , or palpable masses. Bowel sounds present. MUSCULOSKELETAL: Extremities without clubbing, cyanosis, or edema. No calf tenderness. No mottling or clubbing. NEUROLOGICAL: Awake and alert. Motor and sensory grossly within normal limits. Follows commands. Clear speech. Moves all extremities. PSYCHIATRIC: calm and cooperative Assessment & Plan Remarks Aplastic anemia, pancytopenia Severe neutropenia, ANC of 0, refractory Severe thrombocytopenia R pinna cellilits - resolved Upper lip crusted lesion - slowly improving on acyclovi - HSV1+ Fever -new bl clx obtained REC's: cont vanco, cont cefepime for now add micafungin if cont to spike again fu blood clx cont acyclovir chk CXR in am andf urine dw Hem /onc team Roseann Ham MD May 30, 2017 21:36
[2017-05-31] VITALS (7 sets, daily range): BP systolic 98–157; BP diastolic 51–68; PULSE 66–79; RESP 16–20; TEMP 96.9–100.9; O2SAT 93–97
[2017-05-31] MEDS: SODIUM CHLORIDE 0.9% IV SCH ×3 (00:26→16:00)
[2017-05-31] MEDS: ACYCLOVIR IV SCH ×3 (00:26→16:00)
[2017-05-31] MEDS: CEFEPIME INJ 2,000 MG in SODIUM CHLORIDE 0.9% INJ 100 ML IV SCH ×2 (01:39→14:46)
[2017-05-31 05:11] LABS: BLOOD, URINE SMALL (NEG); COMMENT (UR) CULT NOT INDICATED; CULTURE IF INDICATED CULT NOT INDICATED; GLUCOSE,URINE NEG (NEG); GRANULAR CAST, URINE 17 /lpf; KETONE, URINE NEG (NEG); MUCUS URINE FEW /lpf (OCC); NITRITE,URINE NEG (NEG); PH, URINE 5.5 (5.0-8.5); SQUAMOUS EPITHELIAL CELL URINE <1 /hpf (0-5); URINE COLOR YELLOW (YELLW/STRAW)
[2017-05-31] MEDS: cycloSPORINE 25 MG CAP PO SCH ×2 (05:28→17:57)
[2017-05-31] MEDS: cycloSPORINE 100 MG CAP PO SCH ×2 (05:28→17:57)
[2017-05-31] MEDS: CLOTRIMAZOLE 10 MG TROCHE BUCCAL SCH ×5 (05:31→22:44)
[2017-05-31] MEDS: LEVOTHYROXINE SODIUM 50 MCG TAB PO SCH (05:31)
[2017-05-31] MEDS: PROMACTA 50 MG PO SCH (05:32)
[2017-05-31] MEDS: VANCOMYCIN 1,000 MG/NS 250 ML IV SCH ×4 (05:40→17:58)
[2017-05-31 06:35] LABS: HEMATOCRIT 23.3 % (35.0-46.0); MEAN CELL VOLUME 84.8 FL (80.0-100.0); MEAN CORPUSCULAR HEMOGLOBIN 29.3 PG (27.0-34.0); MEAN CORPUSCULAR HGB CONC 34.6 % (32.0-36.0); RED BLOOD COUNT 2.75 MIL/MM3 (4.00-5.30); RED CELL DISTRIBUTION WIDTH 13.6 % (11.6-17.2); WHITE BLOOD COUNT 1.6 TH/MM3 (4.0-11.0)
[2017-05-31 06:44] LABS: HEMO FLAGS AUTO DIFF
--- NOTE | 2017-05-31 06:44 | RADRPT ---
EXAM DATE/TIME: 05/31/2017 05:54 [place] COMPARISON: CHEST SINGLE AP, May 12, 2017, 12:45. INDICATIONS : Short of breath, no chest pain MEDICAL HISTORY : aplastic anemia SURGICAL HISTORY : None. ENCOUNTER: Subsequent ACUITY: 2 weeks PAIN SCORE: 0/10 LOCATION: Bilateral chest FINDINGS: A single view of the chest demonstrates chronic interstitial changes bilaterally. No new or acute pul monary infiltrates are demonstrated. There is eventration of the right hemidiaphragm. No definite ple ural effusions. The heart size is stable. There is a left PICC line in place. There is no pneumothora x.. CONCLUSION: 1. Chronic interstitial lung disease. 2. No new focal pulmonary infiltrates are demonstrated. Maurice Jean Baptiste MD on May 31, 2017 at 6:40 Board Certified Radiologist. This report was verified electronically.
[2017-05-31 06:45] LABS: PLATELET COUNT 14 TH/MM3 (150-450)
[2017-05-31 07:21] LABS: WBC DIFF SAMPLE 100
[2017-05-31 07:22] LABS: OVALOCYTES 1+ (NORMAL); PLATELET ESTIMATE SMEAR LOW (NORMAL); PLATELET MORPHOLOGY NORMAL (NORMAL); SCAN/DIFF FINAL DIFF MANUAL
[2017-05-31] MEDS: DOCUSATE SODIUM 50 MG/SENNA 8.6 MG TAB PO SCH ×2 (09:00→22:45)
[2017-05-31] MEDS: MUPIROCIN 2% OINT 1 APPLIC/GM SYR EACH NARE SCH ×2 (09:16→22:46)
[2017-05-31] MEDS: POTASSIUM CHLORIDE 20 MEQ CONTROLLED RELEASE TAB PO SCH ×2 (09:18→22:45)
[2017-05-31] MEDS: PRAVASTATIN SOD 10 MG TAB PO SCH (09:18)
[2017-05-31] MEDS: AMIODARONE 200 MG TAB PO SCH (09:18)
[2017-05-31] MEDS: PANTOPRAZOLE SOD 40 MG DELAYED RELEASE TAB PO SCH ×2 (09:18→22:45)
[2017-05-31] MEDS: FUROSEMIDE 20 MG TAB PO SCH ×2 (09:18→17:57)
[2017-05-31] MEDS: SODIUM CHLORIDE 0.9% FLUSH 10 ML FLUSH IV FLUSH SCH ×2 (09:19→22:46)
[2017-05-31] MEDS ORDERED: diphenhydrAMINE HCL 25 MG CAP PO PRN (11:30)
[2017-05-31] MEDS ORDERED: SODIUM CHLOR 0.9% 250 ML INJ 250 ML IV ONE (11:30)
[2017-05-31] MEDS ORDERED: ACETAMINOPHEN 325 MG TAB PO PRN (11:30)
--- NOTE | 2017-05-31 11:42 | PD.ONC.PN ---
Subjective Subjective Remarks Afebrile overnight. Patient feeling okay. Tired of being inpatient. right ear improving. Objective Data Date Time Temp Pulse Resp B/P Pulse Ox O2 Delivery O2 Flow Rate FiO2 05/31/17 07:50 97.9 78 20 134/61 97 05/31/17 05:33 99.6 68 18 157/68 95 05/31/17 00:32 97.8 66 18 119/62 95 05/30/17 21:05 97.7 94 20 109/70 94 05/30/17 16:00 99.2 75 18 98/52 94 05/30/17 12:54 102.5 82 18 139/68 93 Result Diagram: 05/31/17 0540 05/29/17 0525 Laboratory Results Laboratory Tests Test 05/31/17 05/31/17 00:15 05:40 Urine Color YELLOW Urine Turbidity HAZY Urine pH 5.5 Urine Specific [place] 1.015 Urine Protein TRACE mg/dL Urine Glucose (UA) NEG mg/dL Urine Ketones NEG mg/dL Urine Occult Blood SMALL Urine Nitrite NEG Urine Bilirubin NEG Urine Urobilinogen LESS THAN 2.0 MG/DL Urine Leukocyte Esterase NEG Urine RBC 3 /hpf Urine WBC LESS THAN 1 /hpf Urine Squamous Epithelial <1 /hpf Cells Urine Granular Casts 17 /lpf Urine Mucus FEW /lpf Microscopic Urinalysis Comment CULT NOT INDICATED White Blood Count 1.6 TH/MM3 Red Blood Count 2.75 MIL/MM3 Hemoglobin 8.1 GM/DL Hematocrit 23.3 % Mean Corpuscular Volume 84.8 FL Mean Corpuscular Hemoglobin 29.3 PG Mean Corpuscular Hemoglobin 34.6 % Concent Red Cell Distribution Width 13.6 % Platelet Count 14 TH/MM3 Mean Platelet Volume 7.4 FL Neutrophils (%) (Auto) % Lymphocytes (%) (Auto) % Monocytes (%) (Auto) % Eosinophils (%) (Auto) % Basophils (%) (Auto) % Neutrophils # (Auto) TH/MM3 Lymphocytes # (Auto) TH/MM3 Monocytes # (Auto) TH/MM3 Eosinophils # (Auto) TH/MM3 Basophils # (Auto) TH/MM3 CBC Comment AUTO DIFF Differential Total Cells 100 Counted Lymphocytes % 100 % Differential Comment FINAL DIFF MANUAL Platelet Estimate LOW Platelet Morphology Comment NORMAL Ovalocytes 1+ Culture Results Microbiology Date/Time Procedure Status Source Growth 05/30/17 15:10 Aerobic Blood Culture - Preliminary Resulted Blood Line NO GROWTH IN 1 DAY 05/30/17 15:10 Anaerobic Blood Culture - Preliminary Resulted Blood Line NO GROWTH IN 1 DAY 05/30/17 15:10 Aerobic Blood Culture - Preliminary Resulted Blood Peripheral NO GROWTH IN 1 DAY 05/30/17 15:10 Anaerobic Blood Culture - Preliminary Resulted Blood Peripheral NO GROWTH IN 1 DAY Imaging Studies Last 24 hours Impressions Chest X-Ray 05/31/17 0600 Signed Impressions: Service Date/Time: Wednesday, May 31, 2017 05:54 - CONCLUSION: 1. Chronic interstitial lung disease. 2. No new focal pulmonary infiltrates are demonstrated. Maurice Jean Baptiste MD Administered Medications Medications (Trade) Dose Ordered Sig/José Route PRN Reason Start Time Stop Time Status Last Admin Dose Admin Sodium Chloride (NS Flush) 2 ml UNSCH PRN IV FLUSH FLUSH AFTER USING IV ACCESS 05/18/17 10:15 05/30/17 10:15 Sodium Chloride (NS Flush) 2 ml BID IV FLUSH 05/18/17 21:00 05/31/17 09:19 Ondansetron HCl (Zofran Inj) 4 mg Q6H PRN IVP NAUSEA OR VOMITING 05/18/17 10:15 05/30/17 13:58 Senna/Docusate Sodium (Rosalinda-Colace) 1 tab BID PO 05/18/17 21:00 05/30/17 20:37 Amiodarone HCl (Cordarone) 200 mg DAILY PO 05/19/17 09:00 05/31/17 09:18 Levothyroxine Sodium (Synthroid) 50 mcg DAILY@0600 PO 05/19/17 06:00 05/31/17 05:31 Pantoprazole Sodium (Protonix) 40 mg BID PO 05/18/17 21:00 05/31/17 09:18 Pravastatin Sodium (Pravachol) 10 mg DAILY PO 05/19/17 09:00 05/31/17 09:18 Diphenhydramine HCl (Benadryl) 25 mg Q4H PRN PO FOR BLOOD PRODUCTS 05/19/17 01:30 05/28/17 15:18 Acetaminophen (Tylenol) 650 mg Q4H PRN PO BLOOD PRODUCTS OR FEVER>100.4 05/19/17 01:30 05/30/17 13:59 Cyclosporine (SandIMMUNE) 300 mg BID@,18 PO 05/20/17 06:00 06/02/17 18:01 05/31/17 05:28 Cyclosporine 50 mg 50 mg BID@,18 PO 05/20/17 06:00 06/02/17 18:01 05/31/17 05:28 Cefepime HCl/ Sodium Chloride (Maxipime Inj/NS Inj) 100 ml @ 200 mls/hr Q12H IV 05/20/17 14:00 05/31/17 01:39 Furosemide 20 mg 20 mg BID@ PO 05/23/17 18:00 05/31/17 09:18 Acyclovir Sodium/ Sodium Chloride (Zovirax Inj/NS Inj) 50 ml @ 50 mls/hr Q8H IV 05/25/17 16:00 05/31/17 09:15 Patient Own Medication PT OWN MED: Prom[facility]... DAILY@06 PO 05/26/17 06:00 05/31/17 05:32 Potassium Chloride 20 meq 20 meq BID PO 05/28/17 21:00 05/31/17 09:18 Vancomycin HCl/ Sodium Chloride (Vancomycin Inj/ NS 250 ml Inj) 250 ml @ 250 mls/hr Q12H IV 05/30/17 17:00 05/31/17 05:40 Mupirocin (Bactroban Nasal 2% Oint) 1 applic BID EACH NARE 05/30/17 15:00 05/31/17 09:16 Objective Remarks GENERAL: Pleasant female upright in bed in [place] SKIN: Warm and dry. right ear with crusting and erythema, swelling improved HEAD: Normocephalic. scabbed black and yellow lesion on lip. EYES: No injection or drainage. NECK: Supple, trachea midline. CARDIOVASCULAR: +S1/S2 RESPIRATORY: Breath sounds equal bilaterally. No accessory muscle use. GASTROINTESTINAL: Abdomen soft, non-tender, nondistended. EXTREMITIES: No cyanosis NEUROLOGICAL: awake and alert, normal speech. moving all extremities. Assessment/Plan Problem List: (1) Pancytopenia Status: Acute Plan: -- +aplastic anemia -- bone marrow biopsy results show aplastic anemia --05/21/17: ATG and cyclosporine Day 1, had some rigors during ATG which resolved with demerol. Promacta started --05/22/17: continue ATG and cyclosporine. continue Promacta --05/23/17: continue ATG and cyclosporine Day 3. continue Promacta. --05/24/17: last day of ATG and cyclosporine. Neupogen started --05/25: give 1 unit pRBC and 1 unit platelets --05/26: no transfusion today. --05/27: counts stable. WBC improving. neutrophils remain 0 --05/28: Transfuse 1 unit Platelets for count of 18k. --05/29: Counts stable. No transfusion. --05/30: platelet count falling. no transfusion. solu-medrol decreased to 20mg --05/31: give one unit platelets (2) Neutropenic fever Status: Acute Plan: --BC, 05/30, no growth --continue Cefepime, Acyclovir and Vancomycin --has cellulitis of right ear and herpetic appearing lip lesion --CXR and U/A from 05/30 show no acute infection Assessment 82-year-old female with anemia brought in for immunosuppressive treatment Plan 1.continue Cefepime, Acyclovir, Vancomycin 2. give 1 unit platelets 3. increase Neupogen to 480mcg Attending Statement The exam, history, and the medical decision-making described in the above note were completed with the assistance of the mid-level provider. I reviewed and agree with the findings presented. I attest that I had a [id number] encounter with the patient on the same day, and personally performed and documented my assessment and findings in the medical record. Pt seen and examined. Son from [place] at bedside visiting. Reviewed pt's labs and recent progress, platelet and red cell transfusion requirement are mild However, pt is completely neutropenic ANC 0 and febrile. She is requiring antibiotic support in anticipation of WBC recovery. 2 weeks post ATG. Promacta continues 150mg daily (~14 days supply available) Cecilia Hughes May 31, 2017 11:42 Luna Marie MD May 31, 2017 19:11
[2017-05-31] MEDS: methylPREDNISolone 4 MG TAB PO SCH (12:23)
[2017-05-31] MEDS: ACETAMINOPHEN 325 MG TAB PO PRN (12:23)
[2017-05-31] MEDS: diphenhydrAMINE HCL 25 MG CAP PO PRN (12:23)
[2017-05-31] MEDS: FILGRASTIM INJ 480 MCG in DEXTROSE 5% IN WATER INJ 25 ML IV SCH ×2 (15:57)
--- NOTE | 2017-05-31 16:52 | HHI.PR ---
Addendum to Inpatient Note Additional Information fever low grade add micafungin fu P blood clx Roseann Ham MD May 31, 2017 16:52
--- NOTE | 2017-05-31 17:30 | HHI.PR ---
Subjective Interval History Alert, oriented, fever last night up to 102.5, blood cultures drawn, the patient herself denies any new complaints, no cough, no shortness of breath, no abdominal pain, no diarrhea Review of Systems Constitutional Constitutional Remarks 10 systems reviewed otherwise negative Vitals/Results Intake & Output 05/30/17 05/30/17 05/31/17 14:59 22:59 06:59 Intake Total 840 ml Balance 840 ml Intake Oral 840 ml # Voids 2 Vital Signs Vital Signs Date Time Temp Pulse Resp B/P Pulse Ox O2 Delivery O2 Flow Rate FiO2 05/31/17 15:50 98.3 69 20 113/56 93 05/31/17 14:05 98.5 77 20 98/51 05/31/17 11:30 100.9 79 20 113/59 94 05/31/17 07:50 97.9 78 20 134/61 97 05/31/17 05:33 99.6 68 18 157/68 95 05/31/17 00:32 97.8 66 18 119/62 95 05/30/17 21:05 97.7 94 20 109/70 94 CBC/BMP: 05/31/17 0540 05/29/17 0525 Lab Results Laboratory Tests Test 05/31/17 05/31/17 05/31/17 05/31/17 00:15 05:40 11:09 11:19 Urine Color YELLOW Urine Turbidity HAZY Urine pH 5.5 Urine Specific [place] 1.015 Urine Protein TRACE mg/dL Urine Glucose (UA) NEG mg/dL Urine Ketones NEG mg/dL Urine Occult Blood SMALL Urine Nitrite NEG Urine Bilirubin NEG Urine Urobilinogen LESS THAN 2.0 MG/DL Urine Leukocyte Esterase NEG Urine RBC 3 /hpf Urine WBC LESS THAN 1 /hpf Urine Squamous Epithelial <1 /hpf Cells Urine Granular Casts 17 /lpf Urine Mucus FEW /lpf Microscopic Urinalysis Comment CULT NOT INDICATED White Blood Count 1.6 TH/MM3 Red Blood Count 2.75 MIL/MM3 Hemoglobin 8.1 GM/DL Hematocrit 23.3 % Mean Corpuscular Volume 84.8 FL Mean Corpuscular Hemoglobin 29.3 PG Mean Corpuscular Hemoglobin 34.6 % Concent Red Cell Distribution Width 13.6 % Platelet Count 14 TH/MM3 Mean Platelet Volume 7.4 FL Neutrophils (%) (Auto) % Lymphocytes (%) (Auto) % Monocytes (%) (Auto) % Eosinophils (%) (Auto) % Basophils (%) (Auto) % Neutrophils # (Auto) TH/MM3 Lymphocytes # (Auto) TH/MM3 Monocytes # (Auto) TH/MM3 Eosinophils # (Auto) TH/MM3 Basophils # (Auto) TH/MM3 CBC Comment AUTO DIFF Differential Total Cells 100 Counted Lymphocytes % 100 % Differential Comment FINAL DIFF MANUAL Platelet Estimate LOW Platelet Morphology Comment NORMAL Ovalocytes 1+ Uric Acid 1.1 MG/DL Blood Bank Comment Physical Exam General General Appearance: Well Developed, Comfortable Eyes Eye Exam: Pupils Reactive Ears & Nose Ears & Nose Exam: Nasal Mucosa [place] Ears & Nose Remarks Right external ear cellulitis, looks better, swollen upper lip also looks better Throat Throat Exam: Oral Mucosa [place] & Moist Neck Neck Exam: Trachea Midline Pulmonary Resp Exam: Clear Bilaterally, Breath Sounds Equal, No Distress Cardiology CV Exam: Good Perfusion, Irregular Gastrointestinal/Abdomen GI Exam: Soft, Non-Tender, Bowel Sounds Present Musculoskeletal MS Exam: Normal Tone Integumentary Skin Exam: Warm, Dry (is a) Skin Remarks Extensive ecchymoses Extremeties Extremeties Remarks Tender right first metatarsal phalangeal joint with local heat Neurologic Neuro Exam: Alert, Awake, Oriented, Speech Clear, 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, 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, 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 Psychiatric Psych Exam: Appropriate Responses VTE Prophylaxis VTE Remarks anticoagulation is contraindicated, both chemical (because of risk of bleeding )and mechanical (because of risk of bruising/ecchymoses/bleeding ) PUD Prophylasis PUD Prophylaxis: Protonix Assessment/Plan Assessment/Plan Assessment Fever Still has 0 absolute neutrophils 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, secondary to herpes simplex type I, improved Right external ear cellulitis, Leukopenia, No evidence of gout Symptomatic anemia, Improved after transfusion Severe profound symptomatic thrombocytopenia, given platelets again today Uncontrolled aplastic anemia Acellular bone marrow per biopsy report Status post bone marrow biopsy 05/18/17 Recent diagnosis of atrial fibrillation Recent diagnosis of gastric erosions Management Follow blood culture reports Mupirocin cream for both nostrils Replace potassium as needed Acyclovir Vancomycin Cefepime Leukocyte stimulating agent Lisinopril for blood pressure control Lasix 20 mg twice a day Replace potassium as needed Antibiotics per ID Chemotherapy Follow complete blood count Follow electrolytes and replace as needed Continue proton pump inhibitor Discussed with patient Discussed with nurse Infectious disease and oncology following 35 minutes spent Discussed Condition with: Patient Elan Espinoza MD May 31, 2017 17:30
[2017-05-31] MEDS: MICAFUNGIN INJ 150 MG in SODIUM CHLORIDE 0.9% INJ 100 ML IV SCH (19:13)
[2017-06-01] VITALS: BP 141/65; PULSE 70; RESP 16; TEMP 98.5; O2SAT 93
[2017-06-01] MEDS: SODIUM CHLORIDE 0.9% IV SCH ×3 (00:24→15:54)
[2017-06-01] MEDS: ACYCLOVIR IV SCH ×3 (00:24→15:54)
[2017-06-01] MEDS: ACETAMINOPHEN 325 MG TAB PO PRN ×2 (02:38→10:05)
[2017-06-01] MEDS: CEFEPIME INJ 2,000 MG in SODIUM CHLORIDE 0.9% INJ 100 ML IV SCH ×2 (02:41→15:19)
[2017-06-01 04:00] VITALS: BP 146/66; PULSE 70; RESP 16; TEMP 97.2; O2SAT 93
[2017-06-01] MEDS: CLOTRIMAZOLE 10 MG TROCHE BUCCAL SCH ×5 (05:46→20:37)
[2017-06-01] MEDS: VANCOMYCIN 1,000 MG/NS 250 ML IV SCH ×4 (05:46→18:14)
[2017-06-01] MEDS: cycloSPORINE 25 MG CAP PO SCH ×2 (05:46→18:15)
[2017-06-01] MEDS: LEVOTHYROXINE SODIUM 50 MCG TAB PO SCH (05:50)
[2017-06-01] MEDS: PROMACTA 50 MG PO SCH (05:55)
[2017-06-01] MEDS: cycloSPORINE 100 MG CAP PO SCH ×2 (06:00→18:15)
[2017-06-01 06:59] LABS: MEAN CELL VOLUME 85.3 FL (80.0-100.0); MEAN CORPUSCULAR HGB CONC 35.2 % (32.0-36.0); PLATELET COUNT 29 TH/MM3 (150-450); RED BLOOD COUNT 2.32 MIL/MM3 (4.00-5.30); RED CELL DISTRIBUTION WIDTH 13.3 % (11.6-17.2); WHITE BLOOD COUNT 2.2 TH/MM3 (4.0-11.0)
[2017-06-01 07:37] LABS: HEMO FLAGS AUTO DIFF
[2017-06-01 07:42] LABS: HEMATOCRIT 19.8 % (35.0-46.0)
[2017-06-01 07:50] VITALS: BP 162/71; PULSE 66; RESP 20; TEMP 96.8; O2SAT 94
[2017-06-01] MEDS: MUPIROCIN 2% OINT 1 APPLIC/GM SYR EACH NARE SCH ×2 (08:44→20:40)
[2017-06-01] MEDS: methylPREDNISolone 4 MG TAB PO SCH (08:44)
[2017-06-01] MEDS: DOCUSATE SODIUM 50 MG/SENNA 8.6 MG TAB PO SCH ×2 (08:45→20:36)
[2017-06-01] MEDS: PRAVASTATIN SOD 10 MG TAB PO SCH (08:45)
[2017-06-01] MEDS: POTASSIUM CHLORIDE 20 MEQ CONTROLLED RELEASE TAB PO SCH ×2 (08:45→20:36)
[2017-06-01] MEDS: FUROSEMIDE 20 MG TAB PO SCH ×2 (08:45→18:15)
[2017-06-01] MEDS: AMIODARONE 200 MG TAB PO SCH (08:45)
[2017-06-01] MEDS: PANTOPRAZOLE SOD 40 MG DELAYED RELEASE TAB PO SCH ×2 (08:45→20:36)
[2017-06-01] MEDS: SODIUM CHLORIDE 0.9% FLUSH 10 ML FLUSH IV FLUSH SCH ×2 (08:46→20:37)
[2017-06-01] MEDS: diphenhydrAMINE HCL 25 MG CAP PO PRN (10:05)
[2017-06-01 10:28] LABS: BANDS 1 % (0-6); WBC DIFF SAMPLE 100
[2017-06-01 10:29] LABS: PLATELET ESTIMATE SMEAR LOW (NORMAL); PLATELET MORPHOLOGY NORMAL (NORMAL); SCAN/DIFF FINAL DIFF MANUAL; SMUDGE CELLS PRESENT PRESENT
[2017-06-01 11:32] VITALS: BP 94/50; PULSE 70; RESP 18; TEMP 98.3
[2017-06-01 11:52] VITALS: BP 99/58; PULSE 67; RESP 18; TEMP 98.8; O2SAT 93
--- NOTE | 2017-06-01 13:51 | HHI.PR ---
Subjective Interval History Alert, oriented, denies complaints, hemoglobin was 7 this morning, she is being transfused this time, some difficulty with poor return on her IV line Review of Systems Constitutional Constitutional Remarks 10 systems reviewed otherwise negative Vitals/Results Intake & Output 05/31/17 05/31/17 06/01/17 14:59 22:59 06:59 Intake Total 480 ml 300 ml 350 ml Output Total 900 ml 400 ml Balance 480 ml -600 ml -50 ml Intake Oral 480 ml 300 ml 350 ml Output Urine Total 900 ml 400 ml # Voids 3 # Bowel Movements 0 0 0 Vital Signs Vital Signs Date Time Temp Pulse Resp B/P Pulse Ox O2 Delivery O2 Flow Rate FiO2 06/01/17 11:52 98.8 67 18 99/58 93 06/01/17 11:32 98.3 70 18 94/50 06/01/17 07:50 96.8 66 20 162/71 94 06/01/17 04:00 97.2 70 16 146/66 93 06/01/17 00:00 98.5 70 16 141/65 93 05/31/17 20:00 96.9 74 16 130/61 93 05/31/17 15:50 98.3 69 20 113/56 93 05/31/17 14:05 98.5 77 20 98/51 CBC/BMP: 06/01/17 0545 06/01/17 0545 Lab Results Laboratory Tests Test 06/01/17 06/01/17 05:45 08:55 White Blood Count 2.2 TH/MM3 Red Blood Count 2.32 MIL/MM3 Hemoglobin 7.0 GM/DL Hematocrit 19.8 % Mean Corpuscular Volume 85.3 FL Mean Corpuscular Hemoglobin 30.0 PG Mean Corpuscular Hemoglobin 35.2 % Concent Red Cell Distribution Width 13.3 % Platelet Count 29 TH/MM3 Mean Platelet Volume 7.2 FL Neutrophils (%) (Auto) % Lymphocytes (%) (Auto) % Monocytes (%) (Auto) % Eosinophils (%) (Auto) % Basophils (%) (Auto) % Neutrophils # (Auto) TH/MM3 Lymphocytes # (Auto) TH/MM3 Monocytes # (Auto) TH/MM3 Eosinophils # (Auto) TH/MM3 Basophils # (Auto) TH/MM3 CBC Comment AUTO DIFF Differential Total Cells 100 Counted Band Neutrophils % 1 % Lymphocytes % 99 % Neutrophils # (Manual) 0.0 TH/MM3 Differential Comment FINAL DIFF MANUAL Smudge Cells PRESENT Platelet Estimate LOW Platelet Morphology Comment NORMAL Creatinine 0.72 MG/DL Estimat Glomerular Filtration 78 ML/MIN Rate Blood Type AB NEGATIVE Antibody Screen NEGATIVE Crossmatch Irradiated/Leukocyte-Reduced RBC Blood Bank Comment Physical Exam General General Appearance: Well Developed, Comfortable Eyes Eye Exam: Pupils Reactive Ears & Nose Ears & Nose Exam: Nasal Mucosa [place] Ears & Nose Remarks Right external ear cellulitis, looks better, swollen upper lip also looks better Throat Throat Exam: Oral Mucosa [place] & Moist Neck Neck Exam: Trachea Midline Pulmonary Resp Exam: Clear Bilaterally, Breath Sounds Equal, No Distress Cardiology CV Exam: Good Perfusion, Irregular Gastrointestinal/Abdomen GI Exam: Soft, Non-Tender, Bowel Sounds Present Musculoskeletal MS Exam: Normal Tone Integumentary Skin Exam: Warm, Dry (is a) Skin Remarks Extensive ecchymoses Extremeties Extremeties Remarks Tender right first metatarsal phalangeal joint with local heat Neurologic Neuro Exam: Alert, Awake, Oriented, Speech Clear, 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, Spring Up Supervisor Equal, 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 Psychiatric Psych Exam: Appropriate Responses VTE Prophylaxis VTE Remarks anticoagulation is contraindicated, both chemical (because of risk of bleeding )and mechanical (because of risk of bruising/ecchymoses/bleeding ) PUD Prophylasis PUD Prophylaxis: Protonix Assessment/Plan Assessment/Plan Assessment Fever has improved Still has 0 absolute neutrophils 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, secondary to herpes simplex type I, improved Right external ear cellulitis, Leukopenia, No evidence of gout Symptomatic anemia, Improved after transfusion Severe profound symptomatic thrombocytopenia, given platelets again today Uncontrolled aplastic anemia Acellular bone marrow per biopsy report Status post bone marrow biopsy 05/18/17 Recent diagnosis of atrial fibrillation Recent diagnosis of gastric erosions Management Topical Zovirax to upper lip Follow blood culture reports Mupirocin cream for both nostrils Replace potassium as needed Acyclovir Vancomycin Cefepime Leukocyte stimulating agent Lisinopril for blood pressure control Lasix 20 mg twice a day Replace potassium as needed Antibiotics per ID Chemotherapy Follow complete blood count Follow electrolytes and replace as needed Continue proton pump inhibitor Discussed with patient Discussed with nurse Infectious disease and oncology following 35 minutes spent Elan Espinoza MD Jun 01, 2017 13:51
[2017-06-01] MEDS ORDERED: ACYCLOVIR 5% OINT 5 APPLIC/5 GM TUBE TOPICAL SCH (14:00)
[2017-06-01] MEDS: FILGRASTIM INJ 480 MCG in DEXTROSE 5% IN WATER INJ 25 ML IV SCH ×2 (15:27)
[2017-06-01] MEDS: MICAFUNGIN INJ 150 MG in SODIUM CHLORIDE 0.9% INJ 100 ML IV SCH (15:51)
[2017-06-01] MEDS ORDERED: PHARMACY ORDERED LAB ONE (16:45)
[2017-06-01] MEDS: ACYCLOVIR 5% OINT 15 APPLIC/15 GM TUBE TOPICAL SCH ×2 (18:18→20:37)
--- NOTE | 2017-06-01 18:22 | PD.ONC.PN ---
Subjective Subjective Remarks Son and daughter at bedside. No complaints but noted hgb low. Answered pt and family's questions. Objective Data Date Time Temp Pulse Resp B/P Pulse Ox O2 Delivery O2 Flow Rate FiO2 06/01/17 11:52 98.8 67 18 99/58 93 06/01/17 11:32 98.3 70 18 94/50 06/01/17 07:50 96.8 66 20 162/71 94 06/01/17 04:00 97.2 70 16 146/66 93 06/01/17 00:00 98.5 70 16 141/65 93 05/31/17 20:00 96.9 74 16 130/61 93 06/01/17 06/01/17 06/01/17 06:59 14:59 22:59 Intake Total 350 ml 300 ml Output Total 400 ml Balance -50 ml 300 ml Result Diagram: 06/01/17 0545 06/01/17 0545 Laboratory Results Laboratory Tests Test 06/01/17 06/01/17 05:45 08:55 White Blood Count 2.2 TH/MM3 Red Blood Count 2.32 MIL/MM3 Hemoglobin 7.0 GM/DL Hematocrit 19.8 % Mean Corpuscular Volume 85.3 FL Mean Corpuscular Hemoglobin 30.0 PG Mean Corpuscular Hemoglobin 35.2 % Concent Red Cell Distribution Width 13.3 % Platelet Count 29 TH/MM3 Mean Platelet Volume 7.2 FL Neutrophils (%) (Auto) % Lymphocytes (%) (Auto) % Monocytes (%) (Auto) % Eosinophils (%) (Auto) % Basophils (%) (Auto) % Neutrophils # (Auto) TH/MM3 Lymphocytes # (Auto) TH/MM3 Monocytes # (Auto) TH/MM3 Eosinophils # (Auto) TH/MM3 Basophils # (Auto) TH/MM3 CBC Comment AUTO DIFF Differential Total Cells 100 Counted Band Neutrophils % 1 % Lymphocytes % 99 % Neutrophils # (Manual) 0.0 TH/MM3 Differential Comment FINAL DIFF MANUAL Smudge Cells PRESENT Platelet Estimate LOW Platelet Morphology Comment NORMAL Creatinine 0.72 MG/DL Estimat Glomerular Filtration 78 ML/MIN Rate Blood Type AB NEGATIVE Antibody Screen NEGATIVE Crossmatch Irradiated/Leukocyte-Reduced RBC Blood Bank Comment Culture Results Microbiology Date/Time Procedure Status Source Growth 05/30/17 15:10 Aerobic Blood Culture - Preliminary Resulted Blood Line NO GROWTH IN 2 DAYS 05/30/17 15:10 Anaerobic Blood Culture - Preliminary Resulted Blood Line NO GROWTH IN 2 DAYS 05/30/17 15:10 Aerobic Blood Culture - Preliminary Resulted Blood Peripheral NO GROWTH IN 2 DAYS 05/30/17 15:10 Anaerobic Blood Culture - Preliminary Resulted Blood Peripheral NO GROWTH IN 2 DAYS Administered Medications Medications (Trade) Dose Ordered Sig/José Route PRN Reason Start Time Stop Time Status Last Admin Dose Admin Sodium Chloride (NS Flush) 2 ml UNSCH PRN IV FLUSH FLUSH AFTER USING IV ACCESS 05/18/17 10:15 05/30/17 10:15 Sodium Chloride (NS Flush) 2 ml BID IV FLUSH 05/18/17 21:00 06/01/17 08:46 Ondansetron HCl (Zofran Inj) 4 mg Q6H PRN IVP NAUSEA OR VOMITING 05/18/17 10:15 05/30/17 13:58 Senna/Docusate Sodium (Rosalinda-Colace) 1 tab BID PO 05/18/17 21:00 06/01/17 08:45 Amiodarone HCl (Cordarone) 200 mg DAILY PO 05/19/17 09:00 06/01/17 08:45 Levothyroxine Sodium (Synthroid) 50 mcg DAILY@0600 PO 05/19/17 06:00 06/01/17 05:50 Pantoprazole Sodium (Protonix) 40 mg BID PO 05/18/17 21:00 06/01/17 08:45 Pravastatin Sodium (Pravachol) 10 mg DAILY PO 05/19/17 09:00 06/01/17 08:45 Diphenhydramine HCl (Benadryl) 25 mg Q4H PRN PO FOR BLOOD PRODUCTS 05/19/17 01:30 06/01/17 10:05 Acetaminophen (Tylenol) 650 mg Q4H PRN PO BLOOD PRODUCTS OR FEVER>100.4 05/19/17 01:30 06/01/17 10:05 Cyclosporine (SandIMMUNE) 300 mg BID@ PO 05/20/17 06:00 06/02/17 18:01 06/01/17 06:00 Cyclosporine 50 mg 50 mg BID@,18 PO 05/20/17 06:00 06/02/17 18:01 06/01/17 05:46 Cefepime HCl/ Sodium Chloride (Maxipime Inj/NS Inj) 100 ml @ 200 mls/hr Q12H IV 05/20/17 14:00 06/01/17 15:19 Furosemide 20 mg 20 mg BID@09,18 PO 05/23/17 18:00 06/01/17 08:45 Acyclovir Sodium/ Sodium Chloride (Zovirax Inj/NS Inj) 50 ml @ 50 mls/hr Q8H IV 05/25/17 16:00 06/01/17 15:54 Patient Own Medication PT OWN MED: Proma... DAILY@06 PO 05/26/17 06:00 06/01/17 05:55 Potassium Chloride 20 meq 20 meq BID PO 05/28/17 21:00 06/01/17 08:45 Vancomycin HCl/ Sodium Chloride (Vancomycin Inj/ NS 250 ml Inj) 250 ml @ 250 mls/hr Q12H IV 05/30/17 17:00 06/01/17 05:46 Mupirocin (Bactroban Nasal 2% Oint) 1 applic BID EACH NARE 05/30/17 15:00 06/01/17 08:44 Methylprednisolone 20 mg 20 mg DAILY PO 05/31/17 09:00 06/01/17 08:44 Filgrastim 480 mcg/Dextrose 26.6 ml @ 106.4 mls/ hr DAILY@14 IV 05/31/17 14:00 06/01/17 15:27 Micafungin Sodium/ Sodium Chloride (Mycamine Inj/NS Inj) 100 ml @ 100 mls/hr Q24H IV 05/31/17 15:00 06/01/17 15:51 Objective Remarks GENERAL: Pleasant female upright in bed in [facility] SKIN: Warm and dry. right ear with crusting and erythema, swelling improved HEAD: Normocephalic. scabbed black upper lip. EYES: No injection or drainage. Mouth with wet purpura. Tongue coated. NECK: Supple, trachea midline. CARDIOVASCULAR: +S1/S2 RESPIRATORY: Breath sounds equal bilaterally. No accessory muscle use. GASTROINTESTINAL: Abdomen soft, non-tender, nondistended. EXTREMITIES: No cyanosis NEUROLOGICAL: awake and alert, normal speech. moving all extremities. Assessment/Plan Problem List: (1) Pancytopenia Status: Acute Plan: -- +aplastic anemia -- bone marrow biopsy results show aplastic anemia --05/21/17: ATG and cyclosporine Day 1, had some rigors during ATG which resolved with demerol. Promacta started --05/22/17: continue ATG and cyclosporine. continue Promacta --05/23/17: continue ATG and cyclosporine Day 3. continue Promacta. --05/24/17: last day of ATG and cyclosporine. Neupogen started --05/25: give 1 unit pRBC and 1 unit platelets --05/26: no transfusion today. --05/27: counts stable. WBC improving. neutrophils remain 0 --05/28: Transfuse 1 unit Platelets for count of 18k. --05/29: Counts stable. No transfusion. --05/30: platelet count falling. no transfusion. solu-medrol decreased to 20mg --05/31: give one unit platelets --06/01: give one unit PRBC, continue antibiotic support, Promacta per protocol, cyclosporine and methylprednisolone No sign of serum sickness. (2) Neutropenic fever Status: Acute Plan: --BC, 05/30, no growth --continue Cefepime, Acyclovir and Vancomycin --has cellulitis of right ear and herpetic appearing lip lesion --CXR and U/A from 05/30 show no acute infection Assessment 82-year-old female with anemia brought in for immunosuppressive treatment Plan 1.continue Abx per ID, discussed with ID 2. give 1 unit PRBC 3. increase Neupogen to 480mcg Luna Marie MD Jun 01, 2017 18:22
[2017-06-01 20:00] VITALS: BP 131/63; PULSE 68; RESP 18; TEMP 97; O2SAT 94
[2017-06-02] VITALS (8 sets, daily range): BP systolic 127–165; BP diastolic 63–76; PULSE 65–76; RESP 16–20; TEMP 97.1–99.1; O2SAT 94–96
[2017-06-02] MEDS: ACYCLOVIR IV SCH ×3 (00:46→14:40)
[2017-06-02] MEDS: SODIUM CHLORIDE 0.9% IV SCH ×3 (00:46→14:40)
[2017-06-02] MEDS: CEFEPIME INJ 2,000 MG in SODIUM CHLORIDE 0.9% INJ 100 ML IV SCH ×2 (01:36→14:05)
[2017-06-02] MEDS: VANCOMYCIN 1,000 MG/NS 250 ML IV SCH ×4 (05:00→15:57)
[2017-06-02] MEDS: LEVOTHYROXINE SODIUM 50 MCG TAB PO SCH (06:23)
[2017-06-02] MEDS: cycloSPORINE 25 MG CAP PO SCH ×2 (06:24→17:34)
[2017-06-02] MEDS: PROMACTA 50 MG PO SCH (06:24)
[2017-06-02] MEDS: CLOTRIMAZOLE 10 MG TROCHE BUCCAL SCH ×4 (06:24→17:34)
[2017-06-02] MEDS: cycloSPORINE 100 MG CAP PO SCH ×2 (07:22→17:34)
[2017-06-02 07:23] LABS: MEAN CELL VOLUME 82.1 FL (80.0-100.0); MEAN CORPUSCULAR HEMOGLOBIN 29.2 PG (27.0-34.0); MEAN CORPUSCULAR HGB CONC 35.5 % (32.0-36.0); RED BLOOD COUNT 2.93 MIL/MM3 (4.00-5.30); RED CELL DISTRIBUTION WIDTH 14.2 % (11.6-17.2); WHITE BLOOD COUNT 3.2 TH/MM3 (4.0-11.0)
[2017-06-02 07:36] LABS: HEMO FLAGS AUTO DIFF
[2017-06-02 07:38] LABS: PLATELET COUNT 14 TH/MM3 (150-450)
[2017-06-02] MEDS: MUPIROCIN 2% OINT 1 APPLIC/GM SYR EACH NARE SCH ×2 (08:00→20:17)
[2017-06-02] MEDS: PANTOPRAZOLE SOD 40 MG DELAYED RELEASE TAB PO SCH ×2 (08:01→20:17)
[2017-06-02] MEDS: POTASSIUM CHLORIDE 20 MEQ CONTROLLED RELEASE TAB PO SCH ×2 (08:01→20:17)
[2017-06-02] MEDS: PRAVASTATIN SOD 10 MG TAB PO SCH (08:01)
[2017-06-02] MEDS: FUROSEMIDE 20 MG TAB PO SCH ×2 (08:01→17:40)
[2017-06-02] MEDS: AMIODARONE 200 MG TAB PO SCH (08:02)
[2017-06-02] MEDS: methylPREDNISolone 4 MG TAB PO SCH (08:02)
[2017-06-02] MEDS: SODIUM CHLORIDE 0.9% FLUSH 10 ML FLUSH IV FLUSH SCH ×2 (08:02→20:21)
[2017-06-02] MEDS: ACYCLOVIR 5% OINT 15 APPLIC/15 GM TUBE TOPICAL SCH ×2 (08:03→20:22)
[2017-06-02] MEDS: DOCUSATE SODIUM 50 MG/SENNA 8.6 MG TAB PO SCH ×2 (08:03→20:17)
[2017-06-02 08:25] LABS: WBC DIFF SAMPLE 100
[2017-06-02 08:26] LABS: PLATELET ESTIMATE SMEAR RARE (NORMAL); PLATELET MORPHOLOGY NORMAL (NORMAL); SCAN/DIFF FINAL DIFF MANUAL
[2017-06-02] MEDS: FILGRASTIM INJ 480 MCG in DEXTROSE 5% IN WATER INJ 25 ML IV SCH ×2 (14:06)
[2017-06-02] MEDS: MICAFUNGIN INJ 150 MG in SODIUM CHLORIDE 0.9% INJ 100 ML IV SCH (14:40)
[2017-06-02] MEDS ORDERED: PHARMACY ORDERED LAB ONE (16:45)
--- NOTE | 2017-06-02 16:48 | PD.ONC.PN ---
Subjective Subjective Remarks My toe hurts. Objective Data Date Time Temp Pulse Resp B/P Pulse Ox O2 Delivery O2 Flow Rate FiO2 06/02/17 11:50 97.3 74 20 134/65 94 06/02/17 07:50 97.6 76 20 127/63 96 06/02/17 04:00 97.5 67 18 148/71 95 06/02/17 00:00 97.1 65 18 165/76 94 06/01/17 20:00 97.0 68 18 131/63 94 06/02/17 06/02/17 06/02/17 07:00 15:00 23:00 Output Total 700 ml Balance -700 ml Result Diagram: 06/02/17 0630 06/01/17 0545 Laboratory Results Laboratory Tests Test 06/01/17 06/02/17 06/02/17 18:00 06:30 07:55 Vancomycin Level Trough 16.9 MCG/ML White Blood Count 3.2 TH/MM3 Red Blood Count 2.93 MIL/MM3 Hemoglobin 8.5 GM/DL Hematocrit 24.0 % Mean Corpuscular Volume 82.1 FL Mean Corpuscular Hemoglobin 29.2 PG Mean Corpuscular Hemoglobin 35.5 % Concent Red Cell Distribution Width 14.2 % Platelet Count 14 TH/MM3 Mean Platelet Volume 7.4 FL Neutrophils (%) (Auto) % Lymphocytes (%) (Auto) % Monocytes (%) (Auto) % Eosinophils (%) (Auto) % Basophils (%) (Auto) % Neutrophils # (Auto) TH/MM3 Lymphocytes # (Auto) TH/MM3 Monocytes # (Auto) TH/MM3 Eosinophils # (Auto) TH/MM3 Basophils # (Auto) TH/MM3 CBC Comment AUTO DIFF Differential Total Cells 100 Counted Lymphocytes % 100 % Differential Comment FINAL DIFF MANUAL Platelet Estimate RARE Platelet Morphology Comment NORMAL Red Cell Morphology Comment NORMAL Blood Bank Comment Administered Medications Medications (Trade) Dose Ordered Sig/José Route PRN Reason Start Time Stop Time Status Last Admin Dose Admin Sodium Chloride (NS Flush) 2 ml UNSCH PRN IV FLUSH FLUSH AFTER USING IV ACCESS 05/18/17 10:15 05/30/17 10:15 Sodium Chloride (NS Flush) 2 ml BID IV FLUSH 05/18/17 21:00 06/02/17 08:02 Ondansetron HCl (Zofran Inj) 4 mg Q6H PRN IVP NAUSEA OR VOMITING 05/18/17 10:15 05/30/17 13:58 Senna/Docusate Sodium (Rosalinda-Colace) 1 tab BID PO 05/18/17 21:00 06/02/17 08:03 Amiodarone HCl (Cordarone) 200 mg DAILY PO 05/19/17 09:00 06/02/17 08:02 Levothyroxine Sodium (Synthroid) 50 mcg DAILY@0600 PO 05/19/17 06:00 06/02/17 06:23 Pantoprazole Sodium (Protonix) 40 mg BID PO 05/18/17 21:00 06/02/17 08:01 Pravastatin Sodium (Pravachol) 10 mg DAILY PO 05/19/17 09:00 06/02/17 08:01 Diphenhydramine HCl (Benadryl) 25 mg Q4H PRN PO FOR BLOOD PRODUCTS 05/19/17 01:30 06/01/17 10:05 Acetaminophen (Tylenol) 650 mg Q4H PRN PO BLOOD PRODUCTS OR FEVER>100.4 05/19/17 01:30 06/01/17 10:05 Cyclosporine (SandIMMUNE) 300 mg BID@ PO 05/20/17 06:00 06/02/17 18:01 06/02/17 07:22 Cyclosporine 50 mg 50 mg BID@ PO 05/20/17 06:00 06/02/17 18:01 06/02/17 06:24 Cefepime HCl/ Sodium Chloride (Maxipime Inj/NS Inj) 100 ml @ 200 mls/hr Q12H IV 05/20/17 14:00 06/02/17 14:05 Furosemide 20 mg 20 mg BID@ PO 05/23/17 18:00 06/02/17 08:01 Acyclovir Sodium/ Sodium Chloride (Zovirax Inj/NS Inj) 50 ml @ 50 mls/hr Q8H IV 05/25/17 16:00 06/02/17 14:40 Patient Own Medication PT OWN MED: [facility]... DAILY@06 PO 05/26/17 06:00 06/02/17 06:24 Potassium Chloride 20 meq 20 meq BID PO 05/28/17 21:00 06/02/17 08:01 Vancomycin HCl/ Sodium Chloride (Vancomycin Inj/ NS 250 ml Inj) 250 ml @ 250 mls/hr Q12H IV 05/30/17 17:00 06/02/17 15:57 Mupirocin (Bactroban Nasal 2% Oint) 1 applic BID EACH NARE 05/30/17 15:00 06/02/17 08:00 Methylprednisolone 20 mg 20 mg DAILY PO 05/31/17 09:00 06/02/17 08:02 Filgrastim 480 mcg/Dextrose 26.6 ml @ 106.4 mls/ hr DAILY@14 IV 05/31/17 14:00 06/02/17 14:06 Micafungin Sodium/ Sodium Chloride (Mycamine Inj/NS Inj) 100 ml @ 100 mls/hr Q24H IV 05/31/17 15:00 06/02/17 14:40 Acyclovir (Zovirax 5% Oint (15 Gm)) 1 applic BID TOPICAL 06/01/17 15:00 06/02/17 08:03 Miscellaneous Information SPECIFIC LAB TO BE KELLY... ONCE ONCE .XX 06/02/17 16:45 06/02/17 16:46 06/02/17 15:57 Objective Remarks GENERAL: Pleasant female upright in bed in nad SKIN: Warm and dry. right ear with erythema- crust resolved swelling improved HEAD: Normocephalic. scabbed black upper lip unchanged. EYES: No injection or drainage. Tongue coating resolved. NECK: Supple, trachea midline. CARDIOVASCULAR: +S1/S2 RESPIRATORY: Breath sounds equal bilaterally. No accessory muscle use. GASTROINTESTINAL: Abdomen soft, non-tender, nondistended. EXTREMITIES: Erythema and swelling R great toe, tracking erythema over dorsum foot, slight swelling R foot. NEUROLOGICAL: awake and alert, normal speech. moving all extremities. Assessment/Plan Problem List: (1) Pancytopenia Status: Acute Plan: -- +aplastic anemia -- bone marrow biopsy results show aplastic anemia --05/21/17: ATG and cyclosporine Day 1, had some rigors during ATG which resolved with demerol. Promacta started --05/22/17: continue ATG and cyclosporine. continue Promacta --05/23/17: continue ATG and cyclosporine Day 3. continue Promacta. --05/24/17: last day of ATG and cyclosporine. Neupogen started --05/25: give 1 unit pRBC and 1 unit platelets --05/26: no transfusion today. --05/27: counts stable. WBC improving. neutrophils remain 0 --05/28: Transfuse 1 unit Platelets for count of 18k. --05/29: Counts stable. No transfusion. --05/30: platelet count falling. no transfusion. solu-medrol decreased to 20mg --05/31: give one unit platelets --06/01: give one unit PRBC, continue antibiotic support, Promacta per protocol, cyclosporine and methylprednisolone No sign of serum sickness. --06/02: Erythema R great toe despite broad spectrum Abx. Podiatry consulted. Platelet transfusion delayed until podiatry procedure. Promacta/cyclosporine continue. (2) Neutropenic fever Status: Acute Plan: 05/23/17. Afebrile but still severely neutropenic. Possible new source of infection. R great toe, pending podiatry evaluation. Discussed with podiatry, plan transfuse platelet in evening. Discussed with Dr. Ham, pending ID recommendations for abx therapy support. --BC, 05/30, no growth --continue Cefepime, Acyclovir and Vancomycin --has cellulitis of right ear and herpetic appearing lip lesion --CXR and U/A from 05/30 show no acute infection Assessment 82-year-old female with anemia brought in for immunosuppressive treatment Plan 1.continue Abx per ID, discussed with ID 2. give 1 unit platelet 3. increase Neupogen to 480mcg 4. Podiatry pending Luna Marie MD Jun 02, 2017 16:47
[2017-06-02] MEDS ORDERED: diphenhydrAMINE HCL 25 MG CAP PO PRN (17:00)
[2017-06-02] MEDS ORDERED: ACETAMINOPHEN 325 MG TAB PO PRN (17:00)
[2017-06-02] MEDS: ACETAMINOPHEN 325 MG TAB PO PRN (17:34)
[2017-06-02] MEDS ORDERED: LIDOCAINE HCL 1% 30 ML VIAL OTHER ONE (18:30)
--- NOTE | 2017-06-02 18:30 | HHI.PR ---
Subjective Interval History Alert, oriented, denies complaints at this time except for right hallux pain and swelling Review of Systems Constitutional Constitutional Remarks 10 systems reviewed otherwise negative Vitals/Results Intake & Output 06/01/17 06/01/17 06/02/17 15:00 23:00 07:00 Intake Total 600 ml Output Total 200 ml 700 ml Balance 400 ml -700 ml Intake Oral 300 ml Packed Cells 300 ml Output Urine Total 200 ml 700 ml # Voids 1 # Bowel Movements 0 Vital Signs Vital Signs Date Time Temp Pulse Resp B/P Pulse Ox O2 Delivery O2 Flow Rate FiO2 06/02/17 18:13 99.1 65 18 141/67 95 06/02/17 15:50 97.9 70 20 140/69 95 06/02/17 11:50 97.3 74 20 134/65 94 06/02/17 07:50 97.6 76 20 127/63 96 06/02/17 04:00 97.5 67 18 148/71 95 06/02/17 00:00 97.1 65 18 165/76 94 06/01/17 20:00 97.0 68 18 131/63 94 CBC/BMP: 06/02/17 0630 06/01/17 0545 Lab Results Laboratory Tests Test 06/02/17 06/02/17 06/02/17 06:30 07:55 17:00 White Blood Count 3.2 TH/MM3 Red Blood Count 2.93 MIL/MM3 Hemoglobin 8.5 GM/DL Hematocrit 24.0 % Mean Corpuscular Volume 82.1 FL Mean Corpuscular Hemoglobin 29.2 PG Mean Corpuscular Hemoglobin 35.5 % Concent Red Cell Distribution Width 14.2 % Platelet Count 14 TH/MM3 Mean Platelet Volume 7.4 FL Neutrophils (%) (Auto) % Lymphocytes (%) (Auto) % Monocytes (%) (Auto) % Eosinophils (%) (Auto) % Basophils (%) (Auto) % Neutrophils # (Auto) TH/MM3 Lymphocytes # (Auto) TH/MM3 Monocytes # (Auto) TH/MM3 Eosinophils # (Auto) TH/MM3 Basophils # (Auto) TH/MM3 CBC Comment AUTO DIFF Differential Total Cells 100 Counted Lymphocytes % 100 % Differential Comment FINAL DIFF MANUAL Platelet Estimate RARE Platelet Morphology Comment NORMAL Red Cell Morphology Comment NORMAL Blood Bank Comment Physical Exam General General Appearance: Well Developed, Comfortable Eyes Eye Exam: Pupils Reactive Ears & Nose Ears & Nose Exam: Nasal Mucosa Birdseye Ears & Nose Remarks Right external ear cellulitis, looks better, swollen upper lip also looks better Throat Throat Exam: Oral Mucosa [place] & Moist Neck Neck Exam: Trachea Midline Pulmonary Resp Exam: Clear Bilaterally, Breath Sounds Equal, No Distress Cardiology CV Exam: Good Perfusion, Irregular Gastrointestinal/Abdomen GI Exam: Soft, Non-Tender, Bowel Sounds Present Musculoskeletal MS Exam: Normal Tone MS Remarks Bruising and tenderness over the right hallux Integumentary Skin Exam: Warm, Dry (is a) Skin Remarks Extensive ecchymoses Extremeties Extremeties Remarks Tender right first metatarsal phalangeal joint with local heat Neurologic Neuro Exam: Alert, Awake, Oriented, Speech Clear, 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, Exercise Rider Equal, 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 Psychiatric Psych Exam: Appropriate Responses VTE Prophylaxis VTE Remarks anticoagulation is contraindicated, both chemical (because of risk of bleeding )and mechanical (because of risk of bruising/ecchymoses/bleeding ) PUD Prophylasis PUD Prophylaxis: Protonix Assessment/Plan Assessment/Plan Assessment Right hallux pain/ecchymosis/swelling Still has 0 absolute neutrophils 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, secondary to herpes simplex type I, improved Right external ear cellulitis, Leukopenia, No evidence of gout Symptomatic anemia, Improved after transfusion Severe profound symptomatic thrombocytopenia, given platelets again today Uncontrolled aplastic anemia Acellular bone marrow per biopsy report Status post bone marrow biopsy 05/18/17 Recent diagnosis of atrial fibrillation Recent diagnosis of gastric erosions Management Podiatry following Topical Zovirax to upper lip Follow blood culture reports Mupirocin cream for both nostrils Replace potassium as needed Acyclovir Vancomycin Cefepime Micafungin Leukocyte stimulating agent Lisinopril for blood pressure control Lasix 20 mg twice a day Replace potassium as needed Antibiotics per ID Chemotherapy Follow complete blood count Follow electrolytes and replace as needed Continue proton pump inhibitor Discussed with patient Discussed with nurse Infectious disease and oncology following 35 minutes spent Elan Espinoza MD Jun 02, 2017 18:30
--- NOTE | 2017-06-02 19:41 | HHI.IDPN ---
Subjective Subjective Remarks co R toe swel;ling redness, tenderness seen by Dr Webster partial nail plate removal no fever chi;lls remains afebrile blood clx neg @ 3 days Antibiotics vanco cefpeime acyclovir micafungin Allergies: Coded Allergies: No Known Allergies (Verified , 05/08/17) Objective . Vital Signs Date Time Temp Pulse Resp B/P Pulse Ox O2 Delivery O2 Flow Rate FiO2 06/02/17 18:35 98.1 65 20 132/63 95 06/02/17 18:13 99.1 65 18 141/67 95 06/02/17 15:50 97.9 70 20 140/69 95 06/02/17 11:50 97.3 74 20 134/65 94 06/02/17 07:50 97.6 76 20 127/63 96 06/02/17 04:00 97.5 67 18 148/71 95 06/02/17 00:00 97.1 65 18 165/76 94 06/01/17 20:00 97.0 68 18 131/63 94 06/01/17 06/01/17 06/02/17 15:00 23:00 07:00 Intake Total 600 ml Output Total 200 ml 700 ml Balance 400 ml -700 ml Intake Oral 300 ml Packed Cells 300 ml Output Urine Total 200 ml 700 ml # Voids 1 # Bowel Movements 0 . Laboratory Tests Test 06/01/17 06/02/17 05:45 06:30 White Blood Count 2.2 TH/MM3 3.2 TH/MM3 Red Blood Count 2.32 MIL/MM3 2.93 MIL/MM3 Hemoglobin 7.0 GM/DL 8.5 GM/DL Hematocrit 19.8 % 24.0 % Mean Corpuscular Volume 85.3 FL 82.1 FL Mean Corpuscular Hemoglobin 30.0 PG 29.2 PG Mean Corpuscular Hemoglobin 35.2 % 35.5 % Concent Red Cell Distribution Width 13.3 % 14.2 % Platelet Count 29 TH/MM3 14 TH/MM3 Mean Platelet Volume 7.2 FL 7.4 FL Neutrophils (%) (Auto) % % Lymphocytes (%) (Auto) % % Monocytes (%) (Auto) % % Eosinophils (%) (Auto) % % Basophils (%) (Auto) % % Neutrophils # (Auto) TH/MM3 TH/MM3 Lymphocytes # (Auto) TH/MM3 TH/MM3 Monocytes # (Auto) TH/MM3 TH/MM3 Eosinophils # (Auto) TH/MM3 TH/MM3 Basophils # (Auto) TH/MM3 TH/MM3 CBC Comment AUTO DIFF AUTO DIFF Differential Total Cells 100 100 Counted Band Neutrophils % 1 % Lymphocytes % 99 % 100 % Neutrophils # (Manual) 0.0 TH/MM3 Differential Comment FINAL DIFF FINAL DIFF MANUAL MANUAL Smudge Cells PRESENT Platelet Estimate LOW RARE Platelet Morphology Comment NORMAL NORMAL Red Cell Morphology Comment NORMAL Laboratory Tests Test 06/01/17 05:45 Creatinine 0.72 MG/DL Estimat Glomerular Filtration 78 ML/MIN Rate Imaging Last Impressions Chest X-Ray 05/31/17 0600 Signed Impressions: Service Date/Time: Wednesday, May 31, 2017 05:54 - CONCLUSION: 1. Chronic interstitial lung disease. 2. No new focal pulmonary infiltrates are demonstrated. Maurice Jean Baptiste MD Bone Biopsy CT 05/18/17 1456 Signed Impressions: Service Date/Time: Thursday, May 18, 2017 15:21 - CONCLUSION: 1. Uncomplicated CT guided bone marrow aspirate. 2. Uncomplicated CT guided bone marrow biopsy. Robert Cruz MD FACR PICC Line Insertion 05/18/17 0000 Signed Impressions: Service Date/Time: Thursday, May 18, 2017 13:31 - CONCLUSION: 1. Uncomplicated central venous Power PICC line placement. 2. The PICC line can be used immediately. Meliton Lerma MD Physical Exam CONSTITUTIONAL/GENERAL: This is an adequately nourished patient, in no apparent distress. TUBES/LINES/DRAINS: SKIN: No jaundice, or dissufe rash . Ecchymoses on upper extremities. No wounds seen anteriorly. Skin temperature appropriate. Not diaphoretic. EYES: Pupils equal and round and reactive. Extraocular motions intact. No scleral icterus. No injection or drainage. Fundi not examined. ENT: Hearing grossly normal. Nose without bleeding or purulent drainage. Oral mucosae without visible erythema, exudates, masses, or lesions. Crusted lesions on upper lip healing R pinna is with minimal residual scab, complete resolution of erythema and edema CARDIOVASCULAR: Regular rate and rhythm without murmurs, gallops, or rubs. No JVD. Peripheral pulses symmetric. RESPIRATORY/CHEST: Symmetric, unlabored respirations. Clear to auscultation. Breath sounds equal bilaterally. No wheezes, rales, or rhonchi. GASTROINTESTINAL: Abdomen soft, non-tender, nondistended. No hepato-splenomegaly , or palpable masses. Bowel sounds present. MUSCULOSKELETAL: Extremities without clubbing, cyanosis, or edema. No calf tenderness. No mottling or clubbing. R hallux with post op dressing in place and mild streaking erythema ixtending to 1st metatarsal NEUROLOGICAL: Awake and alert. Motor and sensory grossly within normal limits. Follows commands. Clear speech. Moves all extremities. PSYCHIATRIC: calm and cooperative Assessment & Plan Remarks Aplastic anemia, pancytopenia Severe neutropenia, ANC of 0, refractory Severe thrombocytopenia R pinna cellilits - resolved Upper lip crusted lesion - slowly improving on acyclovi - HSV1+ Fever -new bl clx negative @ 3 days fever seem to resolved after broad spectrum abx startes will de-escalate abx if remains afebrile and with neg blood clx REC's: cont vanco, cont cefepime for now cont micafungin if cont to spike again fu blood clx cont acyclovir fu R hallux clx dw Roseann Griggs RN, MD Jun 02, 2017 19:41
--- NOTE | 2017-06-02 23:28 | MB ---
cc: ABDI OVALLEM DATE OF CONSULTATION 06/02/17 REASON FOR CONSULTATION Right hallux infection. HISTORY OF PRESENT ILLNESS This is an 82-year-old female who carries a diagnosis of aplastic anemia. Currently, I am seen the patient bedside for possibly progressive infection. I was contacted by the patient's financial aid advisor for possible worsening infection and the urgent nature of a paronychia. The patient denies any obvious incident or injury. It has been a slow progression at this point. PAST MEDICAL HISTORY As above in combination with hyperlipidemia, atrial fibrillation, hypothyroidism, gastric erosion, severe diverticulitis. 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 ALLERGIES NO KNOWN DRUG ALLERGIES. FAMILY HISTORY Noncontributory. SOCIAL HISTORY She is a former smoker. No current smoking. No excessive alcohol or illicit use. MEDICATIONS The patient is currently receivin. Platelets. 2. She is on acyclovir. 3. Micafungin. 4. Filgrastim. 5. Methylprednisolone. 6. Vancomycin. 7. Mupirocin topical. 8. Clotrimazole. 9. Cefepime. 10. Amiodarone. 11. Pravastatin. 12. Benadryl. 13. P.r.n. meds. PHYSICAL EXAMINATION VITAL SIGNS: Temperature is 97.9, pulse rate is 70, respiratory rate is 20, blood pressure is 140/69. She is satting 94% on room air. GENERAL: This is an alert and oriented female seen bedside. She appears to be slightly frail but she is verbal appropriate. DIRECTED EXAMINATION: She is capable of moving all her extremities. The right lower extremity is examined. There is noted to be highly incurvated right lateral nail border with evidence of perinail labia inflammation but no obvious deep fluctuance. This appears not to be coming from the IPJ or the MPJ. No signs of clinical septic arthritis. Pedal pulses are palpable. Sensation intact. There is good capillary refill time to the digit. The left lower extremity appears to be free from pathology. LABORATORY FINDINGS White blood cell 3.2, hemoglobin/hematocrit 8.5 and 24. Platelet count is 14. Chem-7, sodium is 141, potassium 3.8, chloride 103, CO2 31.1, BUN is 28, uric acid 1.1. 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 The patient was educated on the need for decompression of the nail and the nail space to prevent further continuation of the infection, however, due to the patient's chronic illness she may have a difficult time healing this, she understood. Under 1% lidocaine anesthesia a partial nail avulsion was performed with the lateral corner of her nail released, take subungual contents and minimal purulence. A culture was taken at this area. A bandage applied. I am recommending daily bandage change and observation. Of course, will continue to monitor the culture swab from the procedure. Thank you for this consultation. EZEQUIEL Moe /6:13 PM /11:16 PM CHAIM
[2017-06-03] VITALS (8 sets, daily range): BP systolic 95–166; BP diastolic 50–67; PULSE 62–79; RESP 16; TEMP 97.2–99.8; O2SAT 94–95
[2017-06-03] MEDS: ACYCLOVIR IV SCH ×4 (00:13→23:17)
[2017-06-03] MEDS: SODIUM CHLORIDE 0.9% IV SCH ×4 (00:13→23:17)
[2017-06-03] MEDS: CLOTRIMAZOLE 10 MG TROCHE BUCCAL SCH ×6 (00:16→23:15)
[2017-06-03] MEDS: ACETAMINOPHEN 325 MG TAB PO PRN ×2 (00:20→18:23)
[2017-06-03] MEDS: CEFEPIME INJ 2,000 MG in SODIUM CHLORIDE 0.9% INJ 100 ML IV SCH ×2 (01:49→13:21)
[2017-06-03] MEDS: PROMACTA 50 MG PO SCH (05:54)
[2017-06-03] MEDS: LEVOTHYROXINE SODIUM 50 MCG TAB PO SCH (05:55)
[2017-06-03 07:22] LABS: HEMATOCRIT 22.4 % (35.0-46.0); MEAN CELL VOLUME 82.1 FL (80.0-100.0); MEAN CORPUSCULAR HEMOGLOBIN 28.6 PG (27.0-34.0); MEAN CORPUSCULAR HGB CONC 34.8 % (32.0-36.0); MONO % 0.8 % (0.0-8.0); NEUT % 0.2 % (16.0-70.0); PLATELET COUNT 37 TH/MM3 (150-450); RED BLOOD COUNT 2.73 MIL/MM3 (4.00-5.30); RED CELL DISTRIBUTION WIDTH 14.1 % (11.6-17.2); WHITE BLOOD COUNT 3.1 TH/MM3 (4.0-11.0)
[2017-06-03 07:26] LABS: HEMO FLAGS AUTO DIFF
[2017-06-03] MEDS: MUPIROCIN 2% OINT 1 APPLIC/GM SYR EACH NARE SCH ×2 (09:49→20:07)
[2017-06-03] MEDS: VANCOMYCIN 1,000 MG/NS 250 ML IV SCH ×2 (09:49)
[2017-06-03] MEDS: POTASSIUM CHLORIDE 20 MEQ CONTROLLED RELEASE TAB PO SCH ×2 (09:50→20:06)
[2017-06-03] MEDS: AMIODARONE 200 MG TAB PO SCH (09:50)
[2017-06-03] MEDS: PRAVASTATIN SOD 10 MG TAB PO SCH (09:50)
[2017-06-03] MEDS: DOCUSATE SODIUM 50 MG/SENNA 8.6 MG TAB PO SCH ×2 (09:50→20:06)
[2017-06-03] MEDS: FUROSEMIDE 20 MG TAB PO SCH ×2 (09:50→17:18)
[2017-06-03] MEDS: SODIUM CHLORIDE 0.9% FLUSH 10 ML FLUSH IV FLUSH SCH ×2 (09:50→20:07)
[2017-06-03] MEDS: methylPREDNISolone 4 MG TAB PO SCH (09:50)
[2017-06-03] MEDS: PANTOPRAZOLE SOD 40 MG DELAYED RELEASE TAB PO SCH ×2 (09:50→20:06)
[2017-06-03 09:54] LABS: PLATELET ESTIMATE SMEAR LOW (NORMAL); PLATELET MORPHOLOGY NORMAL (NORMAL); SCAN/DIFF FINAL DIFF MANUAL; WBC DIFF SAMPLE 100
[2017-06-03 09:55] LABS: SMUDGE CELLS PRESENT PRESENT
[2017-06-03] MEDS: ACYCLOVIR 5% OINT 15 APPLIC/15 GM TUBE TOPICAL SCH ×2 (10:06→23:14)
[2017-06-03] MEDS ORDERED: SODIUM CHLOR 0.9% 250 ML INJ 250 ML IV ONE (11:45)
[2017-06-03] MEDS ORDERED: diphenhydrAMINE HCL 25 MG CAP PO PRN (11:45)
[2017-06-03] MEDS ORDERED: ACETAMINOPHEN 325 MG TAB PO PRN (11:45)
--- NOTE | 2017-06-03 12:20 | PD.ONC.PN ---
Subjective Subjective Remarks Afebrile overnight. patient resting in bed in nad. Has a mouth sore in left soft palate. Hoping her counts improve soon. Objective Data Date Time Temp Pulse Resp B/P Pulse Ox O2 Delivery O2 Flow Rate FiO2 06/03/17 08:00 98.8 73 16 141/64 94 06/03/17 04:00 97.6 62 16 166/67 95 06/03/17 01:56 20 06/03/17 00:00 97.2 65 16 152/64 95 06/02/17 22:00 98.0 67 16 136/65 94 06/02/17 18:35 98.1 65 20 132/63 95 06/02/17 18:13 99.1 65 18 141/67 95 06/02/17 15:50 97.9 70 20 140/69 95 06/03/17 06/03/17 06/03/17 07:00 15:00 23:00 Intake Total 562 ml Output Total 250 ml Balance 312 ml Result Diagram: 06/03/17 0632 06/03/17 0632 Laboratory Results Laboratory Tests Test 06/02/17 06/02/17 06/03/17 16:00 17:00 06:32 Vancomycin Level Trough 19.0 MCG/ML Blood Bank Comment White Blood Count 3.1 TH/MM3 Red Blood Count 2.73 MIL/MM3 Hemoglobin 7.8 GM/DL Hematocrit 22.4 % Mean Corpuscular Volume 82.1 FL Mean Corpuscular Hemoglobin 28.6 PG Mean Corpuscular Hemoglobin 34.8 % Concent Red Cell Distribution Width 14.1 % Platelet Count 37 TH/MM3 Mean Platelet Volume 8.5 FL Neutrophils (%) (Auto) 0.2 % Lymphocytes (%) (Auto) 99.0 % Monocytes (%) (Auto) 0.8 % Eosinophils (%) (Auto) 0.0 % Basophils (%) (Auto) 0.0 % Neutrophils # (Auto) 0.0 TH/MM3 Lymphocytes # (Auto) 3.0 TH/MM3 Monocytes # (Auto) 0.0 TH/MM3 Eosinophils # (Auto) 0.0 TH/MM3 Basophils # (Auto) 0.0 TH/MM3 CBC Comment AUTO DIFF Differential Total Cells 100 Counted Lymphocytes % 100 % Neutrophils # (Manual) 0.0 TH/MM3 Differential Comment FINAL DIFF MANUAL Smudge Cells PRESENT Platelet Estimate LOW Platelet Morphology Comment NORMAL Red Cell Morphology Comment NORMAL Creatinine 0.78 MG/DL Estimat Glomerular Filtration 71 ML/MIN Rate Culture Results Microbiology Date/Time Procedure Status Source Growth 06/02/17 19:00 Gram Stain Received Wound Foot Pending 06/02/17 19:00 Wound Culture Received Wound Foot Pending 06/02/17 19:00 Acid Fast Stain Received Wound Foot Pending 06/02/17 19:00 Mycobacterial Culture Received Wound Foot Pending 06/02/17 19:00 Fungal Smear Received Wound Foot Pending 06/02/17 19:00 Fungal Culture Received Wound Foot Pending Administered Medications Medications (Trade) Dose Ordered Sig/José Route PRN Reason Start Time Stop Time Status Last Admin Dose Admin Sodium Chloride (NS Flush) 2 ml UNSCH PRN IV FLUSH FLUSH AFTER USING IV ACCESS 05/18/17 10:15 05/30/17 10:15 Sodium Chloride (NS Flush) 2 ml BID IV FLUSH 05/18/17 21:00 06/03/17 09:50 Ondansetron HCl (Zofran Inj) 4 mg Q6H PRN IVP NAUSEA OR VOMITING 05/18/17 10:15 05/30/17 13:58 Senna/Docusate Sodium (Rosalinda-Colace) 1 tab BID PO 05/18/17 21:00 06/03/17 09:50 Amiodarone HCl (Cordarone) 200 mg DAILY PO 05/19/17 09:00 06/03/17 09:50 Levothyroxine Sodium (Synthroid) 50 mcg DAILY@0600 PO 05/19/17 06:00 06/03/17 05:55 Pantoprazole Sodium (Protonix) 40 mg BID PO 05/18/17 21:00 06/03/17 09:50 Pravastatin Sodium (Pravachol) 10 mg DAILY PO 05/19/17 09:00 06/03/17 09:50 Diphenhydramine HCl (Benadryl) 25 mg Q4H PRN PO FOR BLOOD PRODUCTS 05/19/17 01:30 06/01/17 10:05 Acetaminophen 650 mg 650 mg Q4H PRN PO BLOOD PRODUCTS OR FEVER>100.4 05/19/17 01:30 06/03/17 00:20 Cefepime HCl/ Sodium Chloride (Maxipime Inj/NS Inj) 100 ml @ 200 mls/hr Q12H IV 05/20/17 14:00 06/03/17 01:49 Furosemide 20 mg 20 mg BID@,18 PO 05/23/17 18:00 06/03/17 09:50 Acyclovir Sodium/ Sodium Chloride (Zovirax Inj/NS Inj) 50 ml @ 50 mls/hr Q8H IV 05/25/17 16:00 06/03/17 09:48 Patient Own Medication PT OWN MED: Prom[facility]... DAILY@06 PO 05/26/17 06:00 06/03/17 05:54 Potassium Chloride (KCl) 20 meq BID PO 05/28/17 21:00 06/03/17 09:50 Mupirocin (Bactroban Nasal 2% Oint) 1 applic BID EACH NARE 05/30/17 15:00 06/03/17 09:49 Methylprednisolone 20 mg 20 mg DAILY PO 05/31/17 09:00 06/03/17 09:50 Filgrastim 480 mcg/Dextrose 26.6 ml @ 106.4 mls/ hr DAILY@14 IV 05/31/17 14:00 06/02/17 14:06 Micafungin Sodium/ Sodium Chloride (Mycamine Inj/NS Inj) 100 ml @ 100 mls/hr Q24H IV 05/31/17 15:00 06/02/17 14:40 Acyclovir 1 applic 1 applic BID TOPICAL 06/01/17 15:00 06/03/17 10:06 Vancomycin HCl/ Sodium Chloride (Vancomycin Inj/ NS 250 ml Inj) 250 ml @ 250 mls/hr Q18H IV 06/03/17 10:00 06/03/17 09:49 Objective Remarks GENERAL: Pleasant female sitting up in bed SKIN: Warm and dry. light red papular rash on back. HEAD: Normocephalic. scabbed lesion on lip, swelling improved MOUTH: oral ulcer, left soft palate. EYES: No injection or drainage. NECK: Supple, trachea midline. CARDIOVASCULAR: +S1/S2 RESPIRATORY: Breath sounds equal bilaterally. No accessory muscle use. GASTROINTESTINAL: Abdomen soft, non-tender, nondistended. EXTREMITIES: No cyanosis. right great toe with bandages in place, some dried blood seen on bandage. NEUROLOGICAL: awake and alert, normal speech. moving all extremities. Assessment/Plan Problem List: (1) Pancytopenia Status: Acute Plan: -- +aplastic anemia -- bone marrow biopsy results show aplastic anemia --05/21/17: ATG and cyclosporine Day 1, had some rigors during ATG which resolved with demerol. Promacta started --05/22/17: continue ATG and cyclosporine. continue Promacta --05/23/17: continue ATG and cyclosporine Day 3. continue Promacta. --05/24/17: last day of ATG and cyclosporine. Neupogen started --05/25: give 1 unit pRBC and 1 unit platelets --05/26: no transfusion today. --05/27: counts stable. WBC improving. neutrophils remain 0 --05/28: Transfuse 1 unit Platelets for count of 18k. --05/29: Counts stable. No transfusion. --05/30: platelet count falling. no transfusion. solu-medrol decreased to 20mg --05/31: give one unit platelets --06/01: give one unit PRBC, continue antibiotic support, Promacta per protocol, cyclosporine and methylprednisolone No sign of serum sickness. --06/02: Erythema R great toe despite broad spectrum Abx. Podiatry consulted. Platelet transfusion delayed until podiatry procedure. Promacta/cyclosporine continue. --06/03: will give 1 unit pRBC. continue abx. (2) Neutropenic fever Status: Acute Plan: --BC, 05/30, no growth x 4 days --wound culture from foot is pending --continue Cefepime, Acyclovir and Vancomycin (ID following) --has cellulitis of right ear and herpetic appearing lip lesion, right great toe infection. Assessment 82-year-old female with anemia brought in for immunosuppressive treatment Plan 1. continue Cefepime, Vanco, Acyclovir 2. continue Promacta and Neupogen 3. give 1 unit pRBC 4. start magic mouthwash for oral ulcer. Attending Statement The exam, history, and the medical decision-making described in the above note were completed with the assistance of the mid-level provider. I reviewed and agree with the findings presented. I attest that I had a [id number] encounter with the patient on the same day, and personally performed and documented my assessment and findings in the medical record. Pt seen and examined. Appreciate podiatry intervention. Continue support, anticipate cytopenia another 10days, still no significant sign of recovery. Continue to monitor transfusion requirements. WBC increase but no monocyte or neutrophils. Prophylactic antibiotic, antifungal, and antivirals in place. Cecilia Hughes Jun 03, 2017 12:20 Luna Marie MD Jun 03, 2017 19:05
[2017-06-03] MEDS: FILGRASTIM INJ 480 MCG in DEXTROSE 5% IN WATER INJ 25 ML IV SCH ×2 (13:37)
[2017-06-03] MEDS: NYSTAT/DIPHENHY/LIDO MOUTHWASH (Adult) 120ML SWISH-SWAL SCH ×3 (13:37→23:13)
[2017-06-03] MEDS: MICAFUNGIN INJ 150 MG in SODIUM CHLORIDE 0.9% INJ 100 ML IV SCH (15:16)
[2017-06-03] MEDS: diphenhydrAMINE HCL 25 MG CAP PO PRN (18:23)
--- NOTE | 2017-06-03 18:52 | HHI.PR ---
Subjective Interval History Alert, oriented, right hallux pain improved, denies complaints otherwise Review of Systems Constitutional Constitutional Remarks 10 systems reviewed otherwise negative Vitals/Results Intake & Output 06/02/17 06/02/17 06/03/17 14:59 22:59 06:59 Intake Total 240 ml 250 ml 562 ml Output Total 245 ml 400 ml 250 ml Balance -5 ml -150 ml 312 ml Intake Oral 240 ml 250 ml 360 ml IV Total 202 ml Output Urine Total 245 ml 400 ml 250 ml # Bowel Movements 4 0 Vital Signs Vital Signs Date Time Temp Pulse Resp B/P Pulse Ox O2 Delivery O2 Flow Rate FiO2 06/03/17 16:00 98.3 78 16 100/59 94 06/03/17 12:00 99.8 79 16 119/57 94 06/03/17 08:00 98.8 73 16 141/64 94 06/03/17 04:00 97.6 62 16 166/67 95 06/03/17 01:56 20 06/03/17 00:00 97.2 65 16 152/64 95 06/02/17 22:00 98.0 67 16 136/65 94 CBC/BMP: 06/03/17 0632 06/03/17 0632 Lab Results Laboratory Tests Test 06/03/17 06/03/17 06/03/17 06:32 11:40 13:26 White Blood Count 3.1 TH/MM3 Red Blood Count 2.73 MIL/MM3 Hemoglobin 7.8 GM/DL Hematocrit 22.4 % Mean Corpuscular Volume 82.1 FL Mean Corpuscular Hemoglobin 28.6 PG Mean Corpuscular Hemoglobin 34.8 % Concent Red Cell Distribution Width 14.1 % Platelet Count 37 TH/MM3 Mean Platelet Volume 8.5 FL Neutrophils (%) (Auto) 0.2 % Lymphocytes (%) (Auto) 99.0 % Monocytes (%) (Auto) 0.8 % Eosinophils (%) (Auto) 0.0 % Basophils (%) (Auto) 0.0 % Neutrophils # (Auto) 0.0 TH/MM3 Lymphocytes # (Auto) 3.0 TH/MM3 Monocytes # (Auto) 0.0 TH/MM3 Eosinophils # (Auto) 0.0 TH/MM3 Basophils # (Auto) 0.0 TH/MM3 CBC Comment AUTO DIFF Differential Total Cells 100 Counted Lymphocytes % 100 % Neutrophils # (Manual) 0.0 TH/MM3 Differential Comment FINAL DIFF MANUAL Smudge Cells PRESENT Platelet Estimate LOW Platelet Morphology Comment NORMAL Red Cell Morphology Comment NORMAL Creatinine 0.78 MG/DL Estimat Glomerular Filtration 71 ML/MIN Rate Blood Type AB NEGATIVE Direct Antiglobulin Test WEAKLY (Oumar) POSITIVE Crossmatch Irradiated/Leukocyte-Reduced RBC Blood Bank Comment Antibody Identification Anti-A1 Microbiology Microbiology 06/02/17 Gram Stain - Final, Resulted 06/02/17 Wound Culture - Preliminary, Resulted RESULTS PENDING 06/02/17 Acid Fast Stain - Final, Resulted NO ACID FAST BACILLI SEEN 06/02/17 Mycobacterial Culture, Resulted Pending 06/02/17 Fungal Smear - Final, Resulted NO FUNGAL ELEMENTS SEEN. 06/02/17 Fungal Culture, Resulted Pending Physical Exam General General Appearance: Well Developed, Comfortable Eyes Eye Exam: Pupils Reactive Ears & Nose Ears & Nose Exam: Nasal Mucosa De [place] Ears & Nose Remarks Right external ear cellulitis, looks better, swollen upper lip also looks better Throat Throat Exam: Oral Mucosa [place] & Moist Neck Neck Exam: Trachea Midline Pulmonary Resp Exam: Clear Bilaterally, Breath Sounds Equal, No Distress Cardiology CV Exam: Good Perfusion, Irregular Gastrointestinal/Abdomen GI Exam: Soft, Non-Tender, Bowel Sounds Present Musculoskeletal MS Exam: Normal Tone MS Remarks Bruising and tenderness over the right hallux Integumentary Skin Exam: Warm, Dry (is a) Skin Remarks Extensive ecchymoses Extremeties Extremeties Remarks Tender right first metatarsal phalangeal joint with local heat Neurologic Neuro Exam: Alert, Awake, Oriented, Speech Clear, 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, Mobility Specialist Equal, 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 Psychiatric Psych Exam: Appropriate Responses VTE Prophylaxis VTE Remarks anticoagulation is contraindicated, both chemical (because of risk of bleeding )and mechanical (because of risk of bruising/ecchymoses/bleeding ) PUD Prophylasis PUD Prophylaxis: Protonix Assessment/Plan Assessment/Plan Assessment Right hallux pain/ecchymosis/swelling, status post bedside procedure 11/20/2016 Still has 0 absolute neutrophils 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, secondary to herpes simplex type I, improved Right external ear cellulitis, Leukopenia, No evidence of gout Symptomatic anemia, Improved after transfusion Severe profound symptomatic thrombocytopenia, given platelets again today Uncontrolled aplastic anemia Acellular bone marrow per biopsy report Status post bone marrow biopsy 05/18/17 Recent diagnosis of atrial fibrillation Recent diagnosis of gastric erosions Management Podiatry following Topical Zovirax to upper lip Follow blood culture reports Mupirocin cream for both nostrils Replace potassium as needed Acyclovir Vancomycin Cefepime Micafungin Leukocyte stimulating agent Lisinopril for blood pressure control Lasix 20 mg twice a day Replace potassium as needed Antibiotics per ID Chemotherapy Follow complete blood count Follow electrolytes and replace as needed Continue proton pump inhibitor Discussed with patient Discussed with nurse Infectious disease and oncology following 35 minutes spent Elan Espinoza MD Jun 03, 2017 18:52
[2017-06-04] VITALS: BP 120/59; PULSE 64; RESP 16; TEMP 97.7; O2SAT 96
[2017-06-04] MEDS: CEFEPIME INJ 2,000 MG in SODIUM CHLORIDE 0.9% INJ 100 ML IV SCH (01:06)
[2017-06-04] MEDS: ACETAMINOPHEN 325 MG TAB PO PRN (02:15)
[2017-06-04] MEDS ORDERED: PHARMACY ORDERED LAB ONE (03:45)
[2017-06-04 04:00] VITALS: BP 146/65; PULSE 68; RESP 17; TEMP 96.6; O2SAT 96
[2017-06-04] MEDS: VANCOMYCIN 1,000 MG/NS 250 ML IV SCH ×2 (04:44)
[2017-06-04] MEDS: PROMACTA 50 MG PO SCH (06:00)
[2017-06-04] MEDS: LEVOTHYROXINE SODIUM 50 MCG TAB PO SCH (06:07)
[2017-06-04] MEDS: CLOTRIMAZOLE 10 MG TROCHE BUCCAL SCH ×5 (06:07→21:00)
[2017-06-04 08:00] VITALS: BP 155/70; PULSE 70; RESP 16; TEMP 99; O2SAT 95
[2017-06-04] MEDS: ACYCLOVIR 5% OINT 15 APPLIC/15 GM TUBE TOPICAL SCH ×2 (09:00→20:14)
[2017-06-04] MEDS: AMIODARONE 200 MG TAB PO SCH (09:38)
[2017-06-04] MEDS: DOCUSATE SODIUM 50 MG/SENNA 8.6 MG TAB PO SCH ×2 (09:38→20:04)
[2017-06-04] MEDS: PRAVASTATIN SOD 10 MG TAB PO SCH (09:38)
[2017-06-04] MEDS: MUPIROCIN 2% OINT 1 APPLIC/GM SYR EACH NARE SCH ×2 (09:39→20:04)
[2017-06-04] MEDS: FUROSEMIDE 20 MG TAB PO SCH ×2 (09:39→18:11)
[2017-06-04] MEDS: PANTOPRAZOLE SOD 40 MG DELAYED RELEASE TAB PO SCH ×2 (09:39→20:03)
[2017-06-04] MEDS: POTASSIUM CHLORIDE 20 MEQ CONTROLLED RELEASE TAB PO SCH ×2 (09:39→20:03)
[2017-06-04] MEDS: ACYCLOVIR IV SCH (09:45)
[2017-06-04] MEDS: SODIUM CHLORIDE 0.9% IV SCH (09:45)
[2017-06-04] MEDS: methylPREDNISolone 4 MG TAB PO SCH (09:45)
[2017-06-04] MEDS: SODIUM CHLORIDE 0.9% FLUSH 10 ML FLUSH IV FLUSH SCH ×2 (09:57→20:04)
[2017-06-04 11:18] LABS: MEAN CORPUSCULAR HGB CONC 36.3 % (32.0-36.0)
[2017-06-04 12:00] VITALS: BP 134/61; PULSE 76; RESP 18; TEMP 100.1; O2SAT 93
--- NOTE | 2017-06-04 12:07 | PD.ONC.PN ---
Subjective Subjective Remarks Afebrile overnight. Patient resting in bed in nad. Noticed the rash on torso. States it does not itch. Mouth sore is "about the same." No change with magic mouthwash. Objective Data Date Time Temp Pulse Resp B/P Pulse Ox O2 Delivery O2 Flow Rate FiO2 06/04/17 08:00 99.0 70 16 155/70 95 06/04/17 04:00 96.6 68 17 146/65 96 06/04/17 00:00 97.7 64 16 120/59 96 06/03/17 20:00 98.4 72 16 110/55 94 06/03/17 20:00 18 06/03/17 19:18 98.0 76 16 96/50 06/03/17 19:05 97.9 72 16 95/51 94 06/03/17 16:00 98.3 78 16 100/59 94 06/03/17 12:00 99.8 79 16 119/57 94 06/04/17 06/04/17 06/04/17 07:00 15:00 23:00 Intake Total 240 ml Balance 240 ml Result Diagram: 06/03/17 0632 06/03/17 0632 Laboratory Results Laboratory Tests Test 06/03/17 06/04/17 13:26 04:45 Antibody Identification Anti-A1 Vancomycin Level Trough 19.0 MCG/ML Culture Results Microbiology Date/Time Procedure Status Source Growth 06/02/17 19:00 Gram Stain - Final Resulted Wound Foot 06/02/17 19:00 Wound Culture - Preliminary Resulted Wound Foot NO GROWTH IN 24 HOURS. 06/02/17 19:00 Acid Fast Stain - Final Resulted Wound Foot NO ACID FAST BACILLI SEEN 06/02/17 19:00 Mycobacterial Culture Resulted Wound Foot Pending 06/02/17 19:00 Fungal Smear - Final Resulted Wound Foot NO FUNGAL ELEMENTS SEEN. 06/02/17 19:00 Fungal Culture Resulted Wound Foot Pending Administered Medications Medications (Trade) Dose Ordered Sig/José Route PRN Reason Start Time Stop Time Status Last Admin Dose Admin Sodium Chloride (NS Flush) 2 ml UNSCH PRN IV FLUSH FLUSH AFTER USING IV ACCESS 05/18/17 10:15 05/30/17 10:15 Sodium Chloride (NS Flush) 2 ml BID IV FLUSH 05/18/17 21:00 06/04/17 09:57 Ondansetron HCl (Zofran Inj) 4 mg Q6H PRN IVP NAUSEA OR VOMITING 05/18/17 10:15 05/30/17 13:58 Senna/Docusate Sodium (Rosalinda-Colace) 1 tab BID PO 05/18/17 21:00 06/04/17 09:38 Amiodarone HCl (Cordarone) 200 mg DAILY PO 05/19/17 09:00 06/04/17 09:38 Levothyroxine Sodium (Synthroid) 50 mcg DAILY@0600 PO 05/19/17 06:00 06/04/17 06:07 Pantoprazole Sodium (Protonix) 40 mg BID PO 05/18/17 21:00 06/04/17 09:39 Pravastatin Sodium (Pravachol) 10 mg DAILY PO 05/19/17 09:00 06/04/17 09:38 Diphenhydramine HCl (Benadryl) 25 mg Q4H PRN PO FOR BLOOD PRODUCTS 05/19/17 01:30 06/03/17 18:23 Acetaminophen 650 mg 650 mg Q4H PRN PO BLOOD PRODUCTS OR FEVER>100.4 05/19/17 01:30 06/04/17 02:15 Cefepime HCl/ Sodium Chloride (Maxipime Inj/NS Inj) 100 ml @ 200 mls/hr Q12H IV 05/20/17 14:00 06/04/17 01:06 Furosemide 20 mg 20 mg BID@09,18 PO 05/23/17 18:00 06/04/17 09:39 Acyclovir Sodium/ Sodium Chloride (Zovirax Inj/NS Inj) 50 ml @ 50 mls/hr Q8H IV 05/25/17 16:00 06/04/17 09:45 Patient Own Medication PT OWN MED: Prom[facility]... DAILY@06 PO 05/26/17 06:00 06/04/17 06:00 Potassium Chloride (KCl) 20 meq BID PO 05/28/17 21:00 06/04/17 09:39 Mupirocin (Bactroban Nasal 2% Oint) 1 applic BID EACH NARE 05/30/17 15:00 06/04/17 09:39 Methylprednisolone 20 mg 20 mg DAILY PO 05/31/17 09:00 06/04/17 09:45 Filgrastim 480 mcg/Dextrose 26.6 ml @ 106.4 mls/ hr DAILY@14 IV 05/31/17 14:00 06/03/17 13:37 Micafungin Sodium/ Sodium Chloride (Mycamine Inj/NS Inj) 100 ml @ 100 mls/hr Q24H IV 05/31/17 15:00 06/03/17 15:16 Acyclovir 1 applic 1 applic BID TOPICAL 06/01/17 15:00 06/04/17 09:00 Vancomycin HCl/ Sodium Chloride (Vancomycin Inj/ NS 250 ml Inj) 250 ml @ 250 mls/hr Q18H IV 06/03/17 10:00 06/04/17 04:44 Multi-Ingredient Mouthwash/Gargle (Magic Mouthwash Adult Liq) 5 ml QID SWISH-SWAL 06/03/17 13:00 06/03/17 23:13 Objective Remarks GENERAL: Pleasant female upright in bed in nad. 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 red papular rash on torso HEAD: Normocephalic. scabbed lesion on lip. EYES: No injection or drainage. NECK: Supple, trachea midline. CARDIOVASCULAR: +S1/S2 RESPIRATORY: Breath sounds equal bilaterally. No accessory muscle use. GASTROINTESTINAL: Abdomen soft, non-tender, nondistended. EXTREMITIES: No cyanosis. right great toe with bandages in place, some dried blood seen on bandage. NEUROLOGICAL: awake and alert, normal speech. moving all extremities. Assessment/Plan Problem List: (1) Pancytopenia Status: Acute Plan: -- +aplastic anemia -- bone marrow biopsy results show aplastic anemia --05/21/17: ATG and cyclosporine Day 1, had some rigors during ATG which resolved with demerol. Promacta started --05/22/17: continue ATG and cyclosporine. continue Promacta --05/23/17: continue ATG and cyclosporine Day 3. continue Promacta. --05/24/17: last day of ATG and cyclosporine. Neupogen started --05/25: give 1 unit pRBC and 1 unit platelets --05/26: no transfusion today. --05/27: counts stable. WBC improving. neutrophils remain 0 --05/28: Transfuse 1 unit Platelets for count of 18k. --05/29: Counts stable. No transfusion. --05/30: platelet count falling. no transfusion. solu-medrol decreased to 20mg --05/31: give one unit platelets --06/01: give one unit PRBC, continue antibiotic support, Promacta per protocol, cyclosporine and methylprednisolone No sign of serum sickness. --06/02: Erythema R great toe despite broad spectrum Abx. Podiatry consulted. Platelet transfusion delayed until podiatry procedure. Promacta/cyclosporine continue. --06/03: will give 1 unit pRBC. continue abx. --06/04: no transfusion. stop Cefepime, start Azactam. (2) Neutropenic fever Status: Acute Plan: --BC, 05/30, no growth --wound culture from foot shows no growth. --continue Acyclovir and Vancomycin, Micafungin, start Azactam. --has cellulitis of right ear and herpetic appearing lip lesion, right great toe infection. (3) Rash Status: Acute Plan: --rash on torso--, unclear etiology, ?drug eruption --I called and spoke with Dr. Ham of infectious disease who advised me to stop Cefepime and start Azactam. Assessment 82-year-old female with anemia brought in for immunosuppressive treatment Attending Statement Complaining of rash itching Denies any fever Overall feels better Awaiting her bone marrow to cover ID was consulted and change anabiotic to Azactam Reassure Answer her questions The exam, history, and the medical decision-making described in the above note were completed with the assistance of the mid-level provider. I reviewed and agree with the findings presented. I attest that I had a [id number] encounter with the patient on the same day, and personally performed and documented my assessment and findings in the medical record. Cecilia Hughes Jun 04, 2017 12:07 Tushar Shelton MD Jun 04, 2017 23:58
[2017-06-04] MEDS: NYSTAT/DIPHENHY/LIDO MOUTHWASH (Adult) 120ML SWISH-SWAL SCH ×4 (13:00→20:05)
[2017-06-04 13:17] LABS: LYMPH % 98.8 % (9.0-44.0); LYMPHOCYTE # 1.9 TH/MM3 (1.0-4.8); MEAN CELL VOLUME 80.4 FL (80.0-100.0); MEAN CORPUSCULAR HEMOGLOBIN 29.2 PG (27.0-34.0); MONO % 0.8 % (0.0-8.0); NEUT % 0.4 % (16.0-70.0); RED BLOOD COUNT 2.73 MIL/MM3 (4.00-5.30); RED CELL DISTRIBUTION WIDTH 14.8 % (11.6-17.2); WHITE BLOOD COUNT 1.9 TH/MM3 (4.0-11.0)
[2017-06-04 13:38] LABS: HEMO FLAGS AUTO DIFF; PLATELET COUNT 15 TH/MM3 (150-450)
[2017-06-04] MEDS: AZTREONAM INJ 1,000 MG in SODIUM CHLORIDE 0.9% INJ 100 ML IV SCH ×2 (13:54→20:03)
[2017-06-04] MEDS: FILGRASTIM INJ 480 MCG in DEXTROSE 5% IN WATER INJ 25 ML IV SCH ×2 (14:00)
--- NOTE | 2017-06-04 14:11 | HHI.IDPN ---
Subjective Subjective Remarks Rash noted today, non pruritic on back, torso + low grade fever up to 100.1 no new co R hallux clx - no growth Antibiotics vanco cefpeime acyclovir micafungin Allergies: Coded Allergies: No Known Allergies (Verified , 05/08/17) Objective . Vital Signs Date Time Temp Pulse Resp B/P Pulse Ox O2 Delivery O2 Flow Rate FiO2 06/04/17 12:00 100.1 76 18 134/61 93 06/04/17 08:00 99.0 70 16 155/70 95 06/04/17 04:00 96.6 68 17 146/65 96 06/04/17 00:00 97.7 64 16 120/59 96 06/03/17 20:00 98.4 72 16 110/55 94 06/03/17 20:00 18 06/03/17 19:18 98.0 76 16 96/50 06/03/17 19:05 97.9 72 16 95/51 94 06/03/17 16:00 98.3 78 16 100/59 94 06/03/17 06/03/17 06/04/17 15:00 23:00 07:00 Intake Total 480 ml 480 ml 240 ml Balance 480 ml 480 ml 240 ml Intake Oral 480 ml 480 ml 240 ml # Voids 3 4 2 # Bowel Movements 1 . Laboratory Tests Test 06/03/17 06/04/17 06:32 12:00 White Blood Count 3.1 TH/MM3 1.9 TH/MM3 Red Blood Count 2.73 MIL/MM3 2.73 MIL/MM3 Hemoglobin 7.8 GM/DL 8.0 GM/DL Hematocrit 22.4 % 22.0 % Mean Corpuscular Volume 82.1 FL 80.4 FL Mean Corpuscular Hemoglobin 28.6 PG 29.2 PG Mean Corpuscular Hemoglobin 34.8 % 36.3 % Concent Red Cell Distribution Width 14.1 % 14.8 % Platelet Count 37 TH/MM3 15 TH/MM3 Mean Platelet Volume 8.5 FL 9.2 FL Neutrophils (%) (Auto) 0.2 % 0.4 % Lymphocytes (%) (Auto) 99.0 % 98.8 % Monocytes (%) (Auto) 0.8 % 0.8 % Eosinophils (%) (Auto) 0.0 % 0.0 % Basophils (%) (Auto) 0.0 % 0.0 % Neutrophils # (Auto) 0.0 TH/MM3 0.0 TH/MM3 Lymphocytes # (Auto) 3.0 TH/MM3 1.9 TH/MM3 Monocytes # (Auto) 0.0 TH/MM3 0.0 TH/MM3 Eosinophils # (Auto) 0.0 TH/MM3 0.0 TH/MM3 Basophils # (Auto) 0.0 TH/MM3 0.0 TH/MM3 CBC Comment AUTO DIFF AUTO DIFF Differential Total Cells 100 Counted Lymphocytes % 100 % Neutrophils # (Manual) 0.0 TH/MM3 Differential Comment FINAL DIFF MANUAL Smudge Cells PRESENT Platelet Estimate LOW Platelet Morphology Comment NORMAL Red Cell Morphology Comment NORMAL Laboratory Tests Test 06/03/17 06:32 Creatinine 0.78 MG/DL Estimat Glomerular Filtration 71 ML/MIN Rate Microbiology Date/Time Procedure Status Source Growth 06/02/17 19:00 Gram Stain - Final Resulted Wound Foot 06/02/17 19:00 Wound Culture - Preliminary Resulted Wound Foot NO GROWTH IN 24 HOURS. 06/02/17 19:00 Acid Fast Stain - Final Resulted Wound Foot NO ACID FAST BACILLI SEEN 06/02/17 19:00 Mycobacterial Culture Resulted Wound Foot Pending 06/02/17 19:00 Fungal Smear - Final Resulted Wound Foot NO FUNGAL ELEMENTS SEEN. 06/02/17 19:00 Fungal Culture Resulted Wound Foot Pending Imaging Last Impressions Chest X-Ray 05/31/17 0600 Signed Impressions: Service Date/Time: Wednesday, May 31, 2017 05:54 - CONCLUSION: 1. Chronic interstitial lung disease. 2. No new focal pulmonary infiltrates are demonstrated. Maurice Jean Baptiste MD Bone Biopsy CT 05/18/17 1456 Signed Impressions: Service Date/Time: Thursday, May 18, 2017 15:21 - CONCLUSION: 1. Uncomplicated CT guided bone marrow aspirate. 2. Uncomplicated CT guided bone marrow biopsy. Robert Cruz MD FACR PICC Line Insertion 05/18/17 0000 Signed Impressions: Service Date/Time: Thursday, May 18, 2017 13:31 - CONCLUSION: 1. Uncomplicated central venous Power PICC line placement. 2. The PICC line can be used immediately. Meliton Lerma MD Physical Exam CONSTITUTIONAL/GENERAL: This is an adequately nourished patient, in no apparent distress. TUBES/LINES/DRAINS: SKIN: + new rash macula-papula on th back, torso, non pruritic Skin temperature appropriate. Not diaphoretic. EYES: Pupils equal and round and reactive. Extraocular motions intact. No scleral icterus. No injection or drainage. Fundi not examined. ENT: Hearing grossly normal. Nose without bleeding or purulent drainage. Oral mucosae without visible erythema, exudates, masses, or lesions. Crusted lesions on upper lip healing , still some induration present R pinna complete resolution of erythema and edema CARDIOVASCULAR: Regular rate and rhythm without murmurs, gallops, or rubs. No JVD. Peripheral pulses symmetric. RESPIRATORY/CHEST: Symmetric, unlabored respirations. Clear to auscultation. Breath sounds equal bilaterally. No wheezes, rales, or rhonchi. GASTROINTESTINAL: Abdomen soft, non-tender, nondistended. No hepato-splenomegaly , or palpable masses. Bowel sounds present. MUSCULOSKELETAL: Extremities without clubbing, cyanosis, or edema. No calf tenderness. No mottling or clubbing. R hallux with post op dressing in place and mild streaking erythema extending to 1st metatarsal and forefoot. NEUROLOGICAL: Awake and alert. Motor and sensory grossly within normal limits. Follows commands. Clear speech. Moves all extremities. PSYCHIATRIC: calm and cooperative Assessment & Plan Remarks Aplastic anemia, pancytopenia Severe neutropenia, ANC of 0, refractory Severe thrombocytopenia R pinna cellilits - resolved Upper lip crusted lesion - slowly improving on acyclovi - HSV1+ Fever, low grade R hallux paronichia with ascending mild cellulitis New issue: skin rash mostly cw allergic reaction REC's: cont vanco, change cefepime to azactam dc micafungin repeat blood clx cont acyclovir, change to valtrex fu R hallux clx untill final dw Roseann Johns RN, MD Jun 04, 2017 14:11
[2017-06-04] MEDS: valACYclovir HCL 500 MG TAB PO SCH ×2 (14:15→21:00)
[2017-06-04 14:20] LABS: POLYS (SEG NEUTROPHILS) 7 % (16-70); WBC DIFF SAMPLE 100
[2017-06-04 14:22] LABS: NEUTROPHIL # MANUAL DIFF 0.1 TH/MM3 (1.8-7.7)
[2017-06-04 14:25] LABS: PLATELET ESTIMATE SMEAR RARE (NORMAL); PLATELET MORPHOLOGY NORMAL (NORMAL); SCAN/DIFF FINAL DIFF MANUAL
--- NOTE | 2017-06-04 14:53 | HHI.PR ---
Subjective Subjective Remarks Maculopapular rash to abdomen and back Fever, 100.1 Appetite fair No abdominal pain no diarrhea No chest pain No shortness of breath Review of Systems Constitutional Constitutional Remarks 12 point ros completed, negative except as noted above Vitals/Results Intake & Output 06/03/17 06/03/17 06/04/17 15:00 23:00 07:00 Intake Total 480 ml 480 ml 240 ml Balance 480 ml 480 ml 240 ml Intake Oral 480 ml 480 ml 240 ml # Voids 3 4 2 # Bowel Movements 1 Vital Signs Vital Signs Date Time Temp Pulse Resp B/P Pulse Ox O2 Delivery O2 Flow Rate FiO2 06/04/17 12:00 100.1 76 18 134/61 93 06/04/17 08:00 99.0 70 16 155/70 95 06/04/17 04:00 96.6 68 17 146/65 96 06/04/17 00:00 97.7 64 16 120/59 96 06/03/17 20:00 98.4 72 16 110/55 94 06/03/17 20:00 18 06/03/17 19:18 98.0 76 16 96/50 06/03/17 19:05 97.9 72 16 95/51 94 06/03/17 16:00 98.3 78 16 100/59 94 CBC/BMP: 06/04/17 1200 06/03/17 0632 Lab Results Laboratory Tests Test 06/04/17 06/04/17 04:45 12:00 Vancomycin Level Trough 19.0 MCG/ML White Blood Count 1.9 TH/MM3 Red Blood Count 2.73 MIL/MM3 Hemoglobin 8.0 GM/DL Hematocrit 22.0 % Mean Corpuscular Volume 80.4 FL Mean Corpuscular Hemoglobin 29.2 PG Mean Corpuscular Hemoglobin 36.3 % Concent Red Cell Distribution Width 14.8 % Platelet Count 15 TH/MM3 Mean Platelet Volume 9.2 FL Neutrophils (%) (Auto) 0.4 % Lymphocytes (%) (Auto) 98.8 % Monocytes (%) (Auto) 0.8 % Eosinophils (%) (Auto) 0.0 % Basophils (%) (Auto) 0.0 % Neutrophils # (Auto) 0.0 TH/MM3 Lymphocytes # (Auto) 1.9 TH/MM3 Monocytes # (Auto) 0.0 TH/MM3 Eosinophils # (Auto) 0.0 TH/MM3 Basophils # (Auto) 0.0 TH/MM3 CBC Comment AUTO DIFF Differential Total Cells 100 Counted Neutrophils % (Manual) 7 % Lymphocytes % 88 % Monocytes % 5 % Neutrophils # (Manual) 0.1 TH/MM3 Differential Comment FINAL DIFF MANUAL Platelet Estimate RARE Platelet Morphology Comment NORMAL Physical Exam General General Appearance: Well Developed, Comfortable Eyes Eye Exam: Pupils Reactive Ears & Nose Ears & Nose Exam: Nasal Mucosa [place] Throat Throat Exam: Oral Mucosa [place] & Moist Neck Neck Exam: Trachea Midline Pulmonary Resp Exam: Clear Bilaterally, Breath Sounds Equal, No Distress Cardiology CV Exam: Good Perfusion Gastrointestinal/Abdomen GI Exam: Soft, Non-Tender, Bowel Sounds Present, Non-Distended Musculoskeletal MS Exam: Normal Tone Integumentary Skin Exam: Warm, Dry, Ulcer(s) (top lip with ulcerated area ) Skin Remarks maculopapular rash Extremeties Extremities Exam: No Edema, Pedal Pulses Palpable Neurologic Neuro Exam: Alert, Awake, Oriented, Speech Clear, 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, [place] Hand Equal, 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 Psychiatric Psych Exam: Appropriate Responses PUD Prophylasis PUD Prophylaxis: Protonix Assessment/Plan Assessment/Plan Right hallux pain/ecchymosis/swelling, status post bedside procedure 11/20/2016 Still has 0 absolute neutrophils 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, secondary to herpes simplex type I, improved Right external ear cellulitis, Leukopenia, No evidence of gout Symptomatic anemia, Improved after transfusion Severe profound symptomatic thrombocytopenia, given platelets again today Uncontrolled aplastic anemia Acellular bone marrow per biopsy report Status post bone marrow biopsy 05/18/17 Recent diagnosis of atrial fibrillation Recent diagnosis of gastric erosions Maculopapular rash, poss drug induced, Cefepime dc Management Podiatry following wound care appreciate ID input Topical Zovirax to upper lip Follow blood culture reports Mupirocin cream for both nostrils Acyclovir dc, changed to Valtrex Vancomycin Micafungin dc Cefepime dc, changed to Azactam due to rash BP control, continue home meds Lisinopril for blood pressure control Lasix 20 mg twice a day oncology following continue neupogen plat 15, HH 07/05, wbc 1.9 no transfusion today labs in am D/W RN D/W Dr. Borjas D/W pt This patient was seen by myself and Dr. Borjas, this note is written on her behalf. Sofia Morris Jun 04, 2017 14:53
[2017-06-04 16:00] VITALS: BP 125/60; PULSE 79; RESP 16; TEMP 98.5; O2SAT 93
[2017-06-04 20:00] VITALS: BP 121/61; PULSE 74; RESP 16; TEMP 98.4; O2SAT 95
[2017-06-05] VITALS (11 sets, daily range): BP systolic 90–139; BP diastolic 47–66; PULSE 65–80; RESP 16–18; TEMP 97.3–100.2; O2SAT 92–96
[2017-06-05] MEDS: AZTREONAM INJ 1,000 MG in SODIUM CHLORIDE 0.9% INJ 100 ML IV SCH ×3 (03:54→21:42)
[2017-06-05] MEDS: NYSTAT/DIPHENHY/LIDO MOUTHWASH (Adult) 120ML SWISH-SWAL SCH ×4 (04:00→21:47)
[2017-06-05 04:25] LABS: HEMATOCRIT 21.4 % (35.0-46.0); MEAN CELL VOLUME 81.3 FL (80.0-100.0); MEAN CORPUSCULAR HGB CONC 35.7 % (32.0-36.0); RED BLOOD COUNT 2.64 MIL/MM3 (4.00-5.30); RED CELL DISTRIBUTION WIDTH 14.4 % (11.6-17.2); WHITE BLOOD COUNT 2.2 TH/MM3 (4.0-11.0)
[2017-06-05 04:40] LABS: HEMO FLAGS AUTO DIFF
[2017-06-05 04:41] LABS: PLATELET COUNT 12 TH/MM3 (150-450)
[2017-06-05 04:44] LABS: ALT (GPT) 81 U/L (10-53); ANION GAP 9 MEQ/L (5-15); AST (GOT) 6 U/L (15-37); BICARBONATE 29.8 MEQ/L (21.0-32.0); BLOOD UREA NITROGEN 32 MG/DL (7-18); CHLORIDE 99 MEQ/L (98-107); GLOMERULAR FILTRATION RATE 60 ML/MIN (>89); POTASSIUM 4.4 MEQ/L (3.5-5.1); SODIUM (NA) 138 MEQ/L (136-145)
[2017-06-05 04:46] LABS: ALKALINE PHOSPHATASE 92 U/L (45-117); TOTAL BILIRUBIN ADULT 2.7 MG/DL (0.2-1.0)
[2017-06-05] MEDS: VANCOMYCIN 1,000 MG/NS 250 ML IV SCH ×2 (05:00)
[2017-06-05] MEDS: LEVOTHYROXINE SODIUM 50 MCG TAB PO SCH (05:03)
[2017-06-05] MEDS: CLOTRIMAZOLE 10 MG TROCHE BUCCAL SCH ×5 (05:03→21:45)
[2017-06-05] MEDS: PROMACTA 50 MG PO SCH (05:05)
[2017-06-05] MEDS: valACYclovir HCL 500 MG TAB PO SCH ×3 (05:05→21:45)
[2017-06-05 06:43] LABS: POLYS (SEG NEUTROPHILS) 1 % (16-70); WBC DIFF SAMPLE 100
[2017-06-05 06:44] LABS: PLATELET ESTIMATE SMEAR LOW (NORMAL); PLATELET MORPHOLOGY NORMAL (NORMAL); SCAN/DIFF FINAL DIFF MANUAL
[2017-06-05] MEDS: DOCUSATE SODIUM 50 MG/SENNA 8.6 MG TAB PO SCH ×2 (09:00→21:00)
[2017-06-05] MEDS: MUPIROCIN 2% OINT 1 APPLIC/GM SYR EACH NARE SCH ×2 (09:00→21:44)
--- NOTE | 2017-06-05 10:11 | PD.ONC.PN ---
Subjective Subjective Remarks Tmax 100.1 overnight. Continues to have rash. Denies itching. Daughter at bedside. No bleeding. States toe is improving. Objective Data Date Time Temp Pulse Resp B/P Pulse Ox O2 Delivery O2 Flow Rate FiO2 06/05/17 04:00 97.3 72 16 139/62 94 06/05/17 00:00 99.6 76 16 122/66 94 06/04/17 20:00 98.4 74 16 121/61 95 06/04/17 16:00 98.5 79 16 125/60 93 06/04/17 12:00 100.1 76 18 134/61 93 06/05/17 06/05/17 06/05/17 07:00 15:00 23:00 Intake Total 870 ml Balance 870 ml Result Diagram: 06/05/17 0355 06/05/17 0355 Laboratory Results Laboratory Tests Test 06/04/17 06/05/17 12:00 03:55 White Blood Count 1.9 TH/MM3 2.2 TH/MM3 Red Blood Count 2.73 MIL/MM3 2.64 MIL/MM3 Hemoglobin 8.0 GM/DL 7.7 GM/DL Hematocrit 22.0 % 21.4 % Mean Corpuscular Volume 80.4 FL 81.3 FL Mean Corpuscular Hemoglobin 29.2 PG 29.0 PG Mean Corpuscular Hemoglobin 36.3 % 35.7 % Concent Red Cell Distribution Width 14.8 % 14.4 % Platelet Count 15 TH/MM3 12 TH/MM3 Mean Platelet Volume 9.2 FL 8.9 FL Neutrophils (%) (Auto) 0.4 % % Lymphocytes (%) (Auto) 98.8 % % Monocytes (%) (Auto) 0.8 % % Eosinophils (%) (Auto) 0.0 % % Basophils (%) (Auto) 0.0 % % Neutrophils # (Auto) 0.0 TH/MM3 TH/MM3 Lymphocytes # (Auto) 1.9 TH/MM3 TH/MM3 Monocytes # (Auto) 0.0 TH/MM3 TH/MM3 Eosinophils # (Auto) 0.0 TH/MM3 TH/MM3 Basophils # (Auto) 0.0 TH/MM3 TH/MM3 CBC Comment AUTO DIFF AUTO DIFF Differential Total Cells 100 100 Counted Neutrophils % (Manual) 7 % 1 % Lymphocytes % 88 % 99 % Monocytes % 5 % Neutrophils # (Manual) 0.1 TH/MM3 0.0 TH/MM3 Differential Comment FINAL DIFF FINAL DIFF MANUAL MANUAL Platelet Estimate RARE LOW Platelet Morphology Comment NORMAL NORMAL Red Cell Morphology Comment NORMAL Sodium Level 138 MEQ/L Potassium Level 4.4 MEQ/L Chloride Level 99 MEQ/L Carbon Dioxide Level 29.8 MEQ/L Anion Gap 9 MEQ/L Blood Urea Nitrogen 32 MG/DL Creatinine 0.90 MG/DL Estimat Glomerular Filtration 60 ML/MIN Rate Random Glucose 84 MG/DL Calcium Level 8.7 MG/DL Total Bilirubin 2.7 MG/DL Aspartate Amino Transf 6 U/L (AST/SGOT) Alanine Aminotransferase 81 U/L (ALT/SGPT) Alkaline Phosphatase 92 U/L Total Protein 7.2 GM/DL Albumin 2.1 GM/DL Culture Results Microbiology Date/Time Procedure Status Source Growth 06/02/17 19:00 Gram Stain - Final Resulted Wound Foot 06/02/17 19:00 Wound Culture - Preliminary Resulted Wound Foot NO GROWTH IN 24 HOURS. 06/02/17 19:00 Acid Fast Stain - Final Resulted Wound Foot NO ACID FAST BACILLI SEEN 06/02/17 19:00 Mycobacterial Culture Resulted Wound Foot Pending 06/02/17 19:00 Fungal Smear - Final Resulted Wound Foot NO FUNGAL ELEMENTS SEEN. 06/02/17 19:00 Fungal Culture Resulted Wound Foot Pending 06/04/17 18:05 Aerobic Blood Culture Received Blood Peripheral Pending 06/04/17 18:05 Anaerobic Blood Culture Received Blood Peripheral Pending 06/04/17 18:11 Aerobic Blood Culture Received Blood Peripheral Pending 06/04/17 18:11 Anaerobic Blood Culture Received Blood Peripheral Pending Administered Medications Medications (Trade) Dose Ordered Sig/José Route PRN Reason Start Time Stop Time Status Last Admin Dose Admin Sodium Chloride (NS Flush) 2 ml UNSCH PRN IV FLUSH FLUSH AFTER USING IV ACCESS 05/18/17 10:15 05/30/17 10:15 Sodium Chloride (NS Flush) 2 ml BID IV FLUSH 05/18/17 21:00 06/04/17 20:04 Ondansetron HCl (Zofran Inj) 4 mg Q6H PRN IVP NAUSEA OR VOMITING 05/18/17 10:15 05/30/17 13:58 Senna/Docusate Sodium (Rosalinda-Colace) 1 tab BID PO 05/18/17 21:00 06/04/17 20:04 Amiodarone HCl (Cordarone) 200 mg DAILY PO 05/19/17 09:00 06/04/17 09:38 Levothyroxine Sodium (Synthroid) 50 mcg DAILY@0600 PO 05/19/17 06:00 06/05/17 05:03 Pantoprazole Sodium (Protonix) 40 mg BID PO 05/18/17 21:00 06/04/17 20:03 Pravastatin Sodium (Pravachol) 10 mg DAILY PO 05/19/17 09:00 06/04/17 09:38 Diphenhydramine HCl (Benadryl) 25 mg Q4H PRN PO FOR BLOOD PRODUCTS 05/19/17 01:30 06/03/17 18:23 Acetaminophen (Tylenol) 650 mg Q4H PRN PO BLOOD PRODUCTS OR FEVER>100.4 05/19/17 01:30 06/04/17 02:15 Furosemide (Lasix) 20 mg BID@09,18 PO 05/23/17 18:00 06/04/17 18:11 Patient Own Medication PT OWN MED: [facility]... DAILY@06 PO 05/26/17 06:00 06/05/17 05:05 Potassium Chloride (KCl) 20 meq BID PO 05/28/17 21:00 06/04/17 20:03 Mupirocin (Bactroban Nasal 2% Oint) 1 applic BID EACH NARE 05/30/17 15:00 06/04/17 20:04 Methylprednisolone 20 mg 20 mg DAILY PO 05/31/17 09:00 06/04/17 09:45 Filgrastim/ Dextrose (Neupogen Inj/ D5W Inj) 26.6 ml @ 106.4 mls/ hr DAILY@14 IV 05/31/17 14:00 06/04/17 14:00 Acyclovir (Zovirax 5% Oint (15 Gm)) 1 applic BID TOPICAL 06/01/17 15:00 06/04/17 20:14 Multi-Ingredient Mouthwash/Gargle 5 ml 5 ml QID SWISH-SWAL 06/03/17 13:00 06/05/17 04:00 Aztreonam 1000 mg/ Sodium Chloride 100 ml @ 200 mls/hr Q8H IV 06/04/17 12:00 06/05/17 03:54 Vancomycin HCl/ Sodium Chloride (Vancomycin Inj/ NS 250 ml Inj) 250 ml @ 250 mls/hr Q24H IV 06/05/17 05:00 06/05/17 05:00 Valacyclovir HCl (Valtrex) 1,000 mg Q8HR PO 06/04/17 14:15 06/05/17 05:05 Objective Remarks GENERAL: Pleasant female sitting up in bed SKIN: Warm and dry. persistent erythematous papular rash on torso. no lesions on extremities. HEAD: Normocephalic. scabbed lesion on lip. EYES: No injection or drainage. NECK: Supple, trachea midline. CARDIOVASCULAR: +S1/S2 RESPIRATORY: Breath sounds equal bilaterally. No accessory muscle use. GASTROINTESTINAL: Abdomen soft, non-tender, nondistended. EXTREMITIES: No cyanosis. right great toe clean bandages in place. NEUROLOGICAL: awake and alert, normal speech. moving all extremities. Assessment/Plan Problem List: (1) Pancytopenia Status: Acute Plan: -- +aplastic anemia -- bone marrow biopsy results show aplastic anemia --05/21/17: ATG and cyclosporine Day 1, had some rigors during ATG which resolved with demerol. Promacta started --05/22/17: continue ATG and cyclosporine. continue Promacta --05/23/17: continue ATG and cyclosporine Day 3. continue Promacta. --05/24/17: last day of ATG and cyclosporine. Neupogen started --05/25: give 1 unit pRBC and 1 unit platelets --05/26: no transfusion today. --05/27: counts stable. WBC improving. neutrophils remain 0 --05/28: Transfuse 1 unit Platelets for count of 18k. --05/29: Counts stable. No transfusion. --05/30: platelet count falling. no transfusion. solu-medrol decreased to 20mg --05/31: give one unit platelets --06/01: give one unit PRBC, continue antibiotic support, Promacta per protocol, cyclosporine and methylprednisolone No sign of serum sickness. --06/02: Erythema R great toe despite broad spectrum Abx. Podiatry consulted. Platelet transfusion delayed until podiatry procedure. Promacta/cyclosporine continue. --06/03: will give 1 unit pRBC. continue abx. --06/04: no transfusion. stop Cefepime, start Azactam. --06.05: give 1 unit blood and platelets. (2) Neutropenic fever Status: Acute Plan: --BC 06/04 pending --BC, 05/30, no growth --wound culture from foot shows no growth. --on Valtrex and Vancomycin, Azactam. --has cellulitis of right ear and herpetic appearing lip lesion, right great toe infection. (3) Rash Status: Acute Plan: --rash on torso--, unclear etiology, ?drug eruption 06/05: rash persistent, no itching, will monitor. Assessment 82-year-old female with anemia brought in for immunosuppressive treatment Attending Statement I'm bored. Still has Rash but not itching await bone marrow recovery The exam, history, and the medical decision-making described in the above note were completed with the assistance of the mid-level provider. I reviewed and agree with the findings presented. I attest that I had a [id number] encounter with the patient on the same day, and personally performed and documented my assessment and findings in the medical record. Cecilia Hughes Jun 05, 2017 10:11 Tushar Shelton MD Jun 05, 2017 22:24
[2017-06-05] MEDS: AMIODARONE 200 MG TAB PO SCH (11:13)
[2017-06-05] MEDS: FUROSEMIDE 20 MG TAB PO SCH ×2 (11:13→17:47)
[2017-06-05] MEDS: PRAVASTATIN SOD 10 MG TAB PO SCH (11:13)
[2017-06-05] MEDS: POTASSIUM CHLORIDE 20 MEQ CONTROLLED RELEASE TAB PO SCH ×2 (11:13→21:46)
[2017-06-05] MEDS: methylPREDNISolone 4 MG TAB PO SCH (11:13)
[2017-06-05] MEDS: PANTOPRAZOLE SOD 40 MG DELAYED RELEASE TAB PO SCH ×2 (11:13→21:46)
[2017-06-05] MEDS: ACYCLOVIR 5% OINT 15 APPLIC/15 GM TUBE TOPICAL SCH ×2 (11:16→21:44)
--- NOTE | 2017-06-05 12:27 | HHI.PR ---
Subjective Subjective Remarks Maculopapular rash to abdomen and back unchanged Fever 100.2 No chest pain Or shortness of breath No diarrhea Review of Systems Constitutional Constitutional Remarks 12 point ros completed, negative except as noted above Vitals/Results Intake & Output 06/04/17 06/04/17 06/05/17 15:00 23:00 07:00 Intake Total 240 ml 480 ml 870 ml Output Total 450 ml Balance -210 ml 480 ml 870 ml Intake Oral 240 ml 480 ml 480 ml IV Total 390 ml Output Urine Total 450 ml # Voids 4 3 # Bowel Movements 1 1 Vital Signs Vital Signs Date Time Temp Pulse Resp B/P Pulse Ox O2 Delivery O2 Flow Rate FiO2 06/05/17 08:00 97.6 80 102/59 94 06/05/17 04:00 97.3 72 16 139/62 94 06/05/17 00:00 99.6 76 16 122/66 94 06/04/17 20:00 98.4 74 16 121/61 95 06/04/17 16:00 98.5 79 16 125/60 93 CBC/BMP: 06/05/17 0355 06/05/17 0355 Lab Results Laboratory Tests Test 06/05/17 03:55 White Blood Count 2.2 TH/MM3 Red Blood Count 2.64 MIL/MM3 Hemoglobin 7.7 GM/DL Hematocrit 21.4 % Mean Corpuscular Volume 81.3 FL Mean Corpuscular Hemoglobin 29.0 PG Mean Corpuscular Hemoglobin 35.7 % Concent Red Cell Distribution Width 14.4 % Platelet Count 12 TH/MM3 Mean Platelet Volume 8.9 FL Neutrophils (%) (Auto) % Lymphocytes (%) (Auto) % Monocytes (%) (Auto) % Eosinophils (%) (Auto) % Basophils (%) (Auto) % Neutrophils # (Auto) TH/MM3 Lymphocytes # (Auto) TH/MM3 Monocytes # (Auto) TH/MM3 Eosinophils # (Auto) TH/MM3 Basophils # (Auto) TH/MM3 CBC Comment AUTO DIFF Differential Total Cells 100 Counted Neutrophils % (Manual) 1 % Lymphocytes % 99 % Neutrophils # (Manual) 0.0 TH/MM3 Differential Comment FINAL DIFF MANUAL Platelet Estimate LOW Platelet Morphology Comment NORMAL Red Cell Morphology Comment NORMAL Sodium Level 138 MEQ/L Potassium Level 4.4 MEQ/L Chloride Level 99 MEQ/L Carbon Dioxide Level 29.8 MEQ/L Anion Gap 9 MEQ/L Blood Urea Nitrogen 32 MG/DL Creatinine 0.90 MG/DL Estimat Glomerular Filtration 60 ML/MIN Rate Random Glucose 84 MG/DL Calcium Level 8.7 MG/DL Total Bilirubin 2.7 MG/DL Aspartate Amino Transf 6 U/L (AST/SGOT) Alanine Aminotransferase 81 U/L (ALT/SGPT) Alkaline Phosphatase 92 U/L Total Protein 7.2 GM/DL Albumin 2.1 GM/DL Microbiology Microbiology 06/04/17 Aerobic Blood Culture - Preliminary, Resulted NO GROWTH IN 1 DAY 06/04/17 Anaerobic Blood Culture - Preliminary, Resulted NO GROWTH IN 1 DAY 06/04/17 Aerobic Blood Culture - Preliminary, Resulted NO GROWTH IN 1 DAY 06/04/17 Anaerobic Blood Culture - Preliminary, Resulted NO GROWTH IN 1 DAY Physical Exam General General Appearance: Well Developed, Comfortable Eyes Eye Exam: Pupils Reactive Ears & Nose Ears & Nose Exam: Nasal Mucosa [place] Throat Throat Exam: Oral Mucosa [place] & Moist Neck Neck Exam: Trachea Midline Pulmonary Resp Exam: Clear Bilaterally, Breath Sounds Equal, No Distress Cardiology CV Exam: Good Perfusion Gastrointestinal/Abdomen GI Exam: Soft, Non-Tender, Bowel Sounds Present, Non-Distended Musculoskeletal MS Exam: Normal Tone Integumentary Skin Exam: Warm, Dry, Ulcer(s) (top lip with ulcerated area ) Skin Remarks maculopapular rash Extremeties Extremities Exam: No Edema, Pedal Pulses Palpable Neurologic Neuro Exam: Alert, Awake, Oriented, Speech Clear, 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, [place] Equal, 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 Psychiatric Psych Exam: Appropriate Responses PUD Prophylasis PUD Prophylaxis: Protonix Assessment/Plan Assessment/Plan Right hallux pain/ecchymosis/swelling, status post bedside procedure 11/20/2016 Still has 0 absolute neutrophils 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, secondary to herpes simplex type I, improved Right external ear cellulitis, Leukopenia, No evidence of gout Symptomatic anemia, Improved after transfusion Severe profound symptomatic thrombocytopenia, given platelets again today Uncontrolled aplastic anemia Acellular bone marrow per biopsy report Status post bone marrow biopsy 05/18/17 Recent diagnosis of atrial fibrillation Recent diagnosis of gastric erosions Maculopapular rash, poss drug induced, Cefepime dc Management Podiatry following wound care appreciate ID input Topical Zovirax to upper lip Follow blood culture reports Mupirocin cream for both nostrils Acyclovir dc, changed to Valtrex On Vancomycin Micafungin dc Cefepime dc due to rash Continue with Azactam BP control, continue home meds Lisinopril for blood pressure control Lasix 20 mg twice a day oncology following continue neupogen plat 12, HH 7.7/21.4, wbc 2.2 To receive 1 platelet and 1 unit of packed cells today Follow CBC Condition guarded Continue to monitor labs D/W RN D/W Dr. Borjas D/W pt This patient was seen by myself and Dr. Borjas, this note is written on her behalf. Sofia Morris Jun 05, 2017 12:27
[2017-06-05] MEDS: ACETAMINOPHEN 325 MG TAB PO PRN (15:01)
[2017-06-05] MEDS: diphenhydrAMINE HCL 25 MG CAP PO PRN (15:01)
[2017-06-05] MEDS: SODIUM CHLORIDE 0.9% FLUSH 10 ML FLUSH IV FLUSH SCH ×2 (15:09→21:48)
[2017-06-05] MEDS: FILGRASTIM INJ 480 MCG in DEXTROSE 5% IN WATER INJ 25 ML IV SCH ×2 (15:09)
[2017-06-06] VITALS: BP 118/60; PULSE 70; RESP 16; TEMP 97.6; O2SAT 96
[2017-06-06] MEDS: AZTREONAM INJ 1,000 MG in SODIUM CHLORIDE 0.9% INJ 100 ML IV SCH ×3 (04:28→20:49)
[2017-06-06 04:40] VITALS: BP 141/66; PULSE 71; RESP 16; TEMP 98.5; O2SAT 95
[2017-06-06 05:39] LABS: HEMATOCRIT 23.1 % (35.0-46.0); LYMPH % 97.1 % (9.0-44.0); LYMPHOCYTE # 1.4 TH/MM3 (1.0-4.8); MEAN CELL VOLUME 83.3 FL (80.0-100.0); MONO % 2.7 % (0.0-8.0); NEUT % 0.2 % (16.0-70.0); PLATELET COUNT 26 TH/MM3 (150-450); RED BLOOD COUNT 2.78 MIL/MM3 (4.00-5.30); RED CELL DISTRIBUTION WIDTH 14.3 % (11.6-17.2); WHITE BLOOD COUNT 1.4 TH/MM3 (4.0-11.0)
[2017-06-06 05:40] LABS: HEMO FLAGS AUTO DIFF
[2017-06-06] MEDS: VANCOMYCIN 1,000 MG/NS 250 ML IV SCH ×2 (05:41)
[2017-06-06] MEDS: PROMACTA 50 MG PO SCH (05:42)
[2017-06-06] MEDS: LEVOTHYROXINE SODIUM 50 MCG TAB PO SCH (05:43)
[2017-06-06] MEDS: CLOTRIMAZOLE 10 MG TROCHE BUCCAL SCH ×5 (05:43→20:48)
[2017-06-06] MEDS: valACYclovir HCL 500 MG TAB PO SCH ×3 (05:43→22:31)
[2017-06-06 06:06] LABS: BICARBONATE 28.5 MEQ/L (21.0-32.0); POTASSIUM 4.4 MEQ/L (3.5-5.1)
[2017-06-06 06:54] LABS: WBC DIFF SAMPLE 100
[2017-06-06 06:55] LABS: PLATELET ESTIMATE SMEAR LOW (NORMAL); PLATELET MORPHOLOGY NORMAL (NORMAL); SCAN/DIFF FINAL DIFF MANUAL
[2017-06-06] MEDS ORDERED: SODIUM CHLORIDE 0.9% FLUSH 10 ML FLUSH IV FLUSH PRN (07:00)
[2017-06-06] MEDS ORDERED: PICC PRN After Blood Draw NS Lock Flush IV FLUSH (07:00)
[2017-06-06 08:00] VITALS: BP 118/58; PULSE 77; RESP 18; TEMP 99.2; O2SAT 94
[2017-06-06] MEDS: NYSTAT/DIPHENHY/LIDO MOUTHWASH (Adult) 120ML SWISH-SWAL SCH ×4 (08:44→20:48)
[2017-06-06] MEDS: AMIODARONE 200 MG TAB PO SCH (08:45)
[2017-06-06] MEDS: MUPIROCIN 2% OINT 1 APPLIC/GM SYR EACH NARE SCH (08:45)
[2017-06-06] MEDS: methylPREDNISolone 4 MG TAB PO SCH (08:45)
[2017-06-06] MEDS: PRAVASTATIN SOD 10 MG TAB PO SCH (08:46)
[2017-06-06] MEDS: POTASSIUM CHLORIDE 20 MEQ CONTROLLED RELEASE TAB PO SCH ×2 (08:46→20:49)
[2017-06-06] MEDS: FUROSEMIDE 20 MG TAB PO SCH ×2 (08:46→17:29)
[2017-06-06] MEDS: SODIUM CHLORIDE 0.9% FLUSH 10 ML FLUSH IV FLUSH SCH ×2 (08:47→20:53)
[2017-06-06] MEDS: DOCUSATE SODIUM 50 MG/SENNA 8.6 MG TAB PO SCH ×2 (08:48→20:49)
[2017-06-06] MEDS: ACYCLOVIR 5% OINT 15 APPLIC/15 GM TUBE TOPICAL SCH ×2 (08:53→20:48)
[2017-06-06] MEDS: PANTOPRAZOLE SOD 40 MG DELAYED RELEASE TAB PO SCH ×2 (08:53→20:49)
[2017-06-06] MEDS: PICC Daily Heparin 100 unit/mL Lock Flush IV FLUSH SCH (09:00)
[2017-06-06 12:00] VITALS: BP 120/66; PULSE 79; RESP 18; TEMP 99.6; O2SAT 93
--- NOTE | 2017-06-06 13:04 | PD.ONC.PN ---
Subjective Subjective Remarks Afebrile overnight. Rash remains persistent. Is not causing her any pain. No blistering. Having pain in one of her teeth. Objective Data Date Time Temp Pulse Resp B/P Pulse Ox O2 Delivery O2 Flow Rate FiO2 06/06/17 08:00 99.2 77 18 118/58 94 06/06/17 04:40 98.5 71 16 141/66 95 06/06/17 00:00 97.6 70 16 118/60 96 06/05/17 21:30 97.4 65 18 108/55 06/05/17 20:00 97.6 67 16 90/52 92 06/05/17 18:06 97.7 76 16 98/50 96 06/05/17 17:42 97.7 76 16 90/51 93 06/05/17 16:00 98.5 74 16 103/52 93 06/05/17 15:35 99.9 79 16 98/53 94 06/05/17 15:15 99.0 80 16 105/53 94 06/05/17 15:15 99.0 06/06/17 06/06/17 06/06/17 07:00 15:00 23:00 Intake Total 300 ml Output Total 450 ml Balance -150 ml Result Diagram: 06/06/17 0420 06/06/17 0420 Laboratory Results Laboratory Tests Test 06/05/17 06/06/17 12:50 04:20 Blood Type AB NEGATIVE Antibody Screen NEGATIVE Crossmatch Irradiated/Leukocyte-Reduced RBC Blood Bank Comment White Blood Count 1.4 TH/MM3 Red Blood Count 2.78 MIL/MM3 Hemoglobin 8.3 GM/DL Hematocrit 23.1 % Mean Corpuscular Volume 83.3 FL Mean Corpuscular Hemoglobin 30.0 PG Mean Corpuscular Hemoglobin 36.0 % Concent Red Cell Distribution Width 14.3 % Platelet Count 26 TH/MM3 Mean Platelet Volume 9.1 FL Neutrophils (%) (Auto) 0.2 % Lymphocytes (%) (Auto) 97.1 % Monocytes (%) (Auto) 2.7 % Eosinophils (%) (Auto) 0.0 % Basophils (%) (Auto) 0.0 % Neutrophils # (Auto) 0.0 TH/MM3 Lymphocytes # (Auto) 1.4 TH/MM3 Monocytes # (Auto) 0.0 TH/MM3 Eosinophils # (Auto) 0.0 TH/MM3 Basophils # (Auto) 0.0 TH/MM3 CBC Comment AUTO DIFF Differential Total Cells 100 Counted Lymphocytes % 100 % Differential Comment FINAL DIFF MANUAL Platelet Estimate LOW Platelet Morphology Comment NORMAL Red Cell Morphology Comment NORMAL Sodium Level 136 MEQ/L Potassium Level 4.4 MEQ/L Chloride Level 100 MEQ/L Carbon Dioxide Level 28.5 MEQ/L Anion Gap 8 MEQ/L Blood Urea Nitrogen 39 MG/DL Creatinine 0.96 MG/DL Estimat Glomerular Filtration 56 ML/MIN Rate Random Glucose 84 MG/DL Calcium Level 8.6 MG/DL Culture Results Microbiology Date/Time Procedure Status Source Growth 06/04/17 18:05 Aerobic Blood Culture - Preliminary Resulted Blood Peripheral NO GROWTH IN 2 DAYS 06/04/17 18:05 Anaerobic Blood Culture - Preliminary Resulted Blood Peripheral NO GROWTH IN 2 DAYS 06/04/17 18:11 Aerobic Blood Culture - Preliminary Resulted Blood Peripheral NO GROWTH IN 2 DAYS 06/04/17 18:11 Anaerobic Blood Culture - Preliminary Resulted Blood Peripheral NO GROWTH IN 2 DAYS Administered Medications Medications (Trade) Dose Ordered Sig/José Route PRN Reason Start Time Stop Time Status Last Admin Dose Admin Sodium Chloride (NS Flush) 2 ml UNSCH PRN IV FLUSH FLUSH AFTER USING IV ACCESS 05/18/17 10:15 05/30/17 10:15 Sodium Chloride (NS Flush) 2 ml BID IV FLUSH 05/18/17 21:00 06/06/17 08:47 Ondansetron HCl (Zofran Inj) 4 mg Q6H PRN IVP NAUSEA OR VOMITING 05/18/17 10:15 05/30/17 13:58 Senna/Docusate Sodium (Rosalinda-Colace) 1 tab BID PO 05/18/17 21:00 06/04/17 20:04 Amiodarone HCl (Cordarone) 200 mg DAILY PO 05/19/17 09:00 06/06/17 08:45 Levothyroxine Sodium (Synthroid) 50 mcg DAILY@0600 PO 05/19/17 06:00 06/06/17 05:43 Pantoprazole Sodium (Protonix) 40 mg BID PO 05/18/17 21:00 06/06/17 08:53 Pravastatin Sodium (Pravachol) 10 mg DAILY PO 05/19/17 09:00 06/06/17 08:46 Diphenhydramine HCl (Benadryl) 25 mg Q4H PRN PO FOR BLOOD PRODUCTS 05/19/17 01:30 06/05/17 15:01 Acetaminophen (Tylenol) 650 mg Q4H PRN PO BLOOD PRODUCTS OR FEVER>100.4 05/19/17 01:30 06/05/17 15:01 Furosemide (Lasix) 20 mg BID@09,18 PO 05/23/17 18:00 06/06/17 08:46 Patient Own Medication PT OWN MED: [facility]... DAILY@06 PO 05/26/17 06:00 06/06/17 05:42 Potassium Chloride (KCl) 20 meq BID PO 05/28/17 21:00 06/05/17 21:46 Mupirocin (Bactroban Nasal 2% Oint) 1 applic BID EACH NARE 05/30/17 15:00 06/05/17 21:44 Methylprednisolone 20 mg 20 mg DAILY PO 05/31/17 09:00 06/06/17 08:45 Filgrastim/ Dextrose (Neupogen Inj/ D5W Inj) 26.6 ml @ 106.4 mls/ hr DAILY@14 IV 05/31/17 14:00 06/05/17 15:09 Acyclovir (Zovirax 5% Oint (15 Gm)) 1 applic BID TOPICAL 06/01/17 15:00 06/06/17 08:53 Multi-Ingredient Mouthwash/Gargle 5 ml 5 ml QID SWISH-SWAL 06/03/17 13:00 06/06/17 08:44 Aztreonam 1000 mg/ Sodium Chloride 100 ml @ 200 mls/hr Q8H IV 06/04/17 12:00 06/06/17 04:28 Vancomycin HCl/ Sodium Chloride (Vancomycin Inj/ NS 250 ml Inj) 250 ml @ 250 mls/hr Q24H IV 06/05/17 05:00 06/06/17 05:41 Valacyclovir HCl (Valtrex) 1,000 mg Q8HR PO 06/04/17 14:15 06/06/17 05:43 Objective Remarks GENERAL: Pleasant female upright in bed SKIN: Warm and dry. red papular rash on torso, no convalescing. erythematous line along dorsum of right foot. right foot bandage c/d/i. red spots on palms of hands. none on feet HEAD: Normocephalic. ++ lesion on lip. MOUTH: one ulcer, ~3mm noted on left soft palate. some gingivitis and peridontal disease noted around, right lower incisor EYES: No injection or drainage. NECK: Supple, trachea midline. CARDIOVASCULAR: +S1/S2 RESPIRATORY: Breath sounds equal bilaterally. No accessory muscle use. GASTROINTESTINAL: Abdomen soft, non-tender, nondistended. EXTREMITIES: No cyanosis. right great toe clean bandages in place. NEUROLOGICAL: aox3. normal speech. Assessment/Plan Problem List: (1) Pancytopenia Status: Acute Plan: -- +aplastic anemia -- bone marrow biopsy results show aplastic anemia --05/21/17: ATG and cyclosporine Day 1, had some rigors during ATG which resolved with demerol. Promacta started --05/22/17: continue ATG and cyclosporine. continue Promacta --05/23/17: continue ATG and cyclosporine Day 3. continue Promacta. --05/24/17: last day of ATG and cyclosporine. Neupogen started --05/25: give 1 unit pRBC and 1 unit platelets --05/26: no transfusion today. --05/27: counts stable. WBC improving. neutrophils remain 0 --05/28: Transfuse 1 unit Platelets for count of 18k. --05/29: Counts stable. No transfusion. --05/30: platelet count falling. no transfusion. solu-medrol decreased to 20mg --05/31: give one unit platelets --06/01: give one unit PRBC, continue antibiotic support, Promacta per protocol, cyclosporine and methylprednisolone No sign of serum sickness. --06/02: Erythema R great toe despite broad spectrum Abx. Podiatry consulted. Platelet transfusion delayed until podiatry procedure. Promacta/cyclosporine continue. --06/03: will give 1 unit pRBC. continue abx. --06/04: no transfusion. stop Cefepime, start Azactam. --06.05: give 1 unit blood and platelets. --06/06: no transfusion (2) Neutropenic fever Status: Acute Plan: --BC 06/04 no growth --BC, 05/30, no growth --wound culture from foot shows no growth. --on Valtrex and Vancomycin, Azactam. --has cellulitis of right ear and herpetic appearing lip lesion, right great toe infection. (3) Rash Status: Acute Plan: --rash on torso--, unclear etiology, ?drug eruption vs. hand foot mouth disease vs viral exanthem, vs. erythema multiforme 06/05: rash persistent, no itching, will monitor. 06/06: rash now involving palms of hands. I do not see any lesions on soles of feet. the rash also seems to be convalescing. I do not see any blister formation. likely serum sickness rash. Assessment 82-year-old female with anemia brought in for immunosuppressive treatment Plan 1. continue antibiotics. 2. no transfusion today 3. increase steroids to 40mg daily. Attending Statement The exam, history, and the medical decision-making described in the above note were completed with the assistance of the mid-level provider. I reviewed and agree with the findings presented. I attest that I had a [id number] encounter with the patient on the same day, and personally performed and documented my assessment and findings in the medical record. Serum sickness rash, involves palms. Need to increase steroids. Not pruritic. R great toe dressing dry but erythema tracking away from toe. Reconsult podiatry to reassess. Cecilia Hughes Jun 06, 2017 13:04 Luna Marie MD Jun 06, 2017 18:33
[2017-06-06] MEDS: FILGRASTIM INJ 480 MCG in DEXTROSE 5% IN WATER INJ 25 ML IV SCH ×2 (13:36)
--- NOTE | 2017-06-06 15:37 | HHI.PR ---
Subjective Subjective Remarks Maculopapular rash to abdomen and back unchanged rash on palmar surface now no itching no fever no cp no sob No diarrhea Review of Systems Constitutional Constitutional Remarks 12 point ros completed, negative except as noted above Vitals/Results Intake & Output 06/05/17 06/05/17 06/06/17 15:00 23:00 07:00 Intake Total 360 ml 350 ml 300 ml Output Total 550 ml 450 ml Balance 360 ml -200 ml -150 ml Intake Oral 360 ml 350 ml 300 ml Output Urine Total 550 ml 450 ml # Voids 3 # Bowel Movements 1 0 0 Vital Signs Vital Signs Date Time Temp Pulse Resp B/P Pulse Ox O2 Delivery O2 Flow Rate FiO2 06/06/17 12:00 99.6 79 18 120/66 93 06/06/17 08:00 99.2 77 18 118/58 94 06/06/17 04:40 98.5 71 16 141/66 95 06/06/17 00:00 97.6 70 16 118/60 96 06/05/17 21:30 97.4 65 18 108/55 06/05/17 20:00 97.6 67 16 90/52 92 06/05/17 18:06 97.7 76 16 98/50 96 06/05/17 17:42 97.7 76 16 90/51 93 06/05/17 16:00 98.5 74 16 103/52 93 CBC/BMP: 06/06/17 0420 06/06/17 0420 Lab Results Laboratory Tests Test 06/06/17 04:20 White Blood Count 1.4 TH/MM3 Red Blood Count 2.78 MIL/MM3 Hemoglobin 8.3 GM/DL Hematocrit 23.1 % Mean Corpuscular Volume 83.3 FL Mean Corpuscular Hemoglobin 30.0 PG Mean Corpuscular Hemoglobin 36.0 % Concent Red Cell Distribution Width 14.3 % Platelet Count 26 TH/MM3 Mean Platelet Volume 9.1 FL Neutrophils (%) (Auto) 0.2 % Lymphocytes (%) (Auto) 97.1 % Monocytes (%) (Auto) 2.7 % Eosinophils (%) (Auto) 0.0 % Basophils (%) (Auto) 0.0 % Neutrophils # (Auto) 0.0 TH/MM3 Lymphocytes # (Auto) 1.4 TH/MM3 Monocytes # (Auto) 0.0 TH/MM3 Eosinophils # (Auto) 0.0 TH/MM3 Basophils # (Auto) 0.0 TH/MM3 CBC Comment AUTO DIFF Differential Total Cells 100 Counted Lymphocytes % 100 % Differential Comment FINAL DIFF MANUAL Platelet Estimate LOW Platelet Morphology Comment NORMAL Red Cell Morphology Comment NORMAL Sodium Level 136 MEQ/L Potassium Level 4.4 MEQ/L Chloride Level 100 MEQ/L Carbon Dioxide Level 28.5 MEQ/L Anion Gap 8 MEQ/L Blood Urea Nitrogen 39 MG/DL Creatinine 0.96 MG/DL Estimat Glomerular Filtration 56 ML/MIN Rate Random Glucose 84 MG/DL Calcium Level 8.6 MG/DL Physical Exam General General Appearance: Well Developed, Comfortable Eyes Eye Exam: Pupils Reactive Ears & Nose Ears & Nose Exam: Nasal Mucosa [place] Throat Throat Exam: Oral Mucosa [place] & Moist Neck Neck Exam: Trachea Midline Pulmonary Resp Exam: Clear Bilaterally, Breath Sounds Equal, No Distress Cardiology CV Exam: Good Perfusion Gastrointestinal/Abdomen GI Exam: Soft, Non-Tender, Bowel Sounds Present, Non-Distended Musculoskeletal MS Exam: Normal Tone Integumentary Skin Exam: Warm, Dry, Ulcer(s) (top lip with ulcerated area ) Skin Remarks maculopapular rash Extremeties Extremities Exam: No Edema, Pedal Pulses Palpable Neurologic Neuro Exam: Alert, Awake, Oriented, Speech Clear, 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, Nurse Emergency Equal, 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 Psychiatric Psych Exam: Appropriate Responses PUD Prophylasis PUD Prophylaxis: Protonix Assessment/Plan Assessment/Plan Right hallux pain/ecchymosis/swelling, status post bedside procedure 11/20/2016 Still has 0 absolute neutrophils 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, secondary to herpes simplex type I, improved Right external ear cellulitis, Leukopenia, No evidence of gout Symptomatic anemia, Improved after transfusion Severe profound symptomatic thrombocytopenia, given platelets again today Uncontrolled aplastic anemia Acellular bone marrow per biopsy report Status post bone marrow biopsy 05/18/17 Recent diagnosis of atrial fibrillation Recent diagnosis of gastric erosions Maculopapular rash, poss drug induced, Cefepime dc Management Podiatry following wound care appreciate ID input Topical Zovirax to upper lip Follow blood culture reports Mupirocin cream for both nostrils Acyclovir dc, changed to Valtrex On Vancomycin Micafungin dc Cefepime dc due to rash Continue with Azactam Rash, now on hands no itching Poss drug eruption BP control, continue home meds Lisinopril for blood pressure control Lasix 20 mg twice a day oncology following continue neupogen HH stable 8.3/23.1 Plat 26 WBC 1.4 no blood products today Follow CBC Condition guarded Continue to monitor labs D/W RN D/W Dr. Borjas D/W pt This patient was seen by myself and Dr. Borjas, this note is written on her behalf. Sofia Morris Jun 06, 2017 15:37
[2017-06-06 16:00] VITALS: BP 111/55; PULSE 78; RESP 16; TEMP 98.7; O2SAT 95
[2017-06-06] MEDS ORDERED: methylPREDNISolone 4 MG TAB PO ONE (17:00)
[2017-06-06] MEDS ORDERED: SODIUM CHLORIDE 0.65% NASAL SPRAY 45 ML BTL EACH NARE PRN (19:00)
[2017-06-06 20:30] VITALS: BP 155/72; PULSE 70; RESP 18; TEMP 97.6; O2SAT 95
[2017-06-06] MEDS: PICC PRN Heparin 100 units/ml Lock Flush IV FLUSH (22:31)
[2017-06-06] MEDS: PICC HIT (ADULT) PRN NS Lock Flush IV FLUSH (22:31)
[2017-06-07] VITALS (9 sets, daily range): BP systolic 111–158; BP diastolic 56–96; PULSE 67–108; RESP 16–20; TEMP 96.7–99.9; O2SAT 94–98
[2017-06-07] MEDS: AZTREONAM INJ 1,000 MG in SODIUM CHLORIDE 0.9% INJ 100 ML IV SCH ×3 (04:52→20:46)
[2017-06-07] MEDS: PICC HIT (ADULT) PRN NS Lock Flush IV FLUSH (04:58)
[2017-06-07] MEDS: PICC HIT (ADULT) Q8H NS Lock Flush IV FLUSH PRN (04:59)
[2017-06-07 05:33] LABS: MEAN CELL VOLUME 82.8 FL (80.0-100.0); MEAN CORPUSCULAR HEMOGLOBIN 29.7 PG (27.0-34.0); MEAN CORPUSCULAR HGB CONC 35.9 % (32.0-36.0); RED BLOOD COUNT 2.47 MIL/MM3 (4.00-5.30); RED CELL DISTRIBUTION WIDTH 14.2 % (11.6-17.2); WHITE BLOOD COUNT 0.8 TH/MM3 (4.0-11.0)
[2017-06-07] MEDS: VANCOMYCIN 1,000 MG/NS 250 ML IV SCH ×2 (05:37)
[2017-06-07] MEDS: LEVOTHYROXINE SODIUM 50 MCG TAB PO SCH (05:41)
[2017-06-07] MEDS: valACYclovir HCL 500 MG TAB PO SCH ×3 (05:41→22:58)
[2017-06-07] MEDS: CLOTRIMAZOLE 10 MG TROCHE BUCCAL SCH ×5 (05:41→22:58)
[2017-06-07 05:42] LABS: HEMO FLAGS AUTO DIFF
[2017-06-07] MEDS: PROMACTA 50 MG PO SCH (05:43)
[2017-06-07 05:45] LABS: HEMATOCRIT 20.4 % (35.0-46.0); PLATELET COUNT 17 TH/MM3 (150-450)
[2017-06-07 06:04] LABS: BICARBONATE 28.5 MEQ/L (21.0-32.0); POTASSIUM 4.3 MEQ/L (3.5-5.1)
[2017-06-07 07:45] LABS: POLYS (SEG NEUTROPHILS) 1 % (16-70); WBC DIFF SAMPLE 83
[2017-06-07 07:47] LABS: PLATELET ESTIMATE SMEAR LOW (NORMAL); PLATELET MORPHOLOGY NORMAL (NORMAL); SCAN/DIFF FINAL DIFF MANUAL
[2017-06-07] MEDS: FUROSEMIDE 20 MG TAB PO SCH ×2 (08:30→16:11)
[2017-06-07] MEDS: methylPREDNISolone 4 MG TAB PO SCH (08:30)
[2017-06-07] MEDS: AMIODARONE 200 MG TAB PO SCH (08:31)
[2017-06-07] MEDS: PRAVASTATIN SOD 10 MG TAB PO SCH (08:31)
[2017-06-07] MEDS: POTASSIUM CHLORIDE 20 MEQ CONTROLLED RELEASE TAB PO SCH ×2 (08:31→22:59)
[2017-06-07] MEDS: DOCUSATE SODIUM 50 MG/SENNA 8.6 MG TAB PO SCH ×2 (08:31→23:02)
[2017-06-07] MEDS: PANTOPRAZOLE SOD 40 MG DELAYED RELEASE TAB PO SCH ×2 (08:31→22:58)
[2017-06-07] MEDS: NYSTAT/DIPHENHY/LIDO MOUTHWASH (Adult) 120ML SWISH-SWAL SCH ×4 (08:31→22:59)
[2017-06-07] MEDS: SODIUM CHLORIDE 0.9% FLUSH 10 ML FLUSH IV FLUSH SCH ×2 (08:32→20:46)
[2017-06-07] MEDS: ACYCLOVIR 5% OINT 15 APPLIC/15 GM TUBE TOPICAL SCH ×2 (08:36→23:00)
[2017-06-07] MEDS: PICC Daily Heparin 100 unit/mL Lock Flush IV FLUSH SCH (09:00)
--- NOTE | 2017-06-07 11:18 | PD.ONC.PN ---
Subjective Subjective Remarks Afebrile overnight. reports rash is improving. wants to take a shower feeling well. Objective Data Date Time Temp Pulse Resp B/P Pulse Ox O2 Delivery O2 Flow Rate FiO2 06/07/17 07:50 98.7 72 20 135/62 95 06/07/17 04:25 96.7 70 16 144/80 96 06/07/17 00:00 97.2 67 16 111/56 94 06/06/17 20:30 97.6 06/06/17 20:30 70 18 155/72 95 06/06/17 16:00 98.7 78 16 111/55 95 06/06/17 12:00 99.6 79 18 120/66 93 06/07/17 06/07/17 06/07/17 07:00 15:00 23:00 Intake Total 350 ml Balance 350 ml Result Diagram: 06/07/17 0450 06/07/17 0450 Laboratory Results Laboratory Tests Test 06/07/17 06/07/17 04:50 06:19 White Blood Count 0.8 TH/MM3 Red Blood Count 2.47 MIL/MM3 Hemoglobin 7.3 GM/DL Hematocrit 20.4 % Mean Corpuscular Volume 82.8 FL Mean Corpuscular Hemoglobin 29.7 PG Mean Corpuscular Hemoglobin 35.9 % Concent Red Cell Distribution Width 14.2 % Platelet Count 17 TH/MM3 Mean Platelet Volume 8.7 FL Neutrophils (%) (Auto) % Lymphocytes (%) (Auto) % Monocytes (%) (Auto) % Eosinophils (%) (Auto) % Basophils (%) (Auto) % Neutrophils # (Auto) TH/MM3 Lymphocytes # (Auto) TH/MM3 Monocytes # (Auto) TH/MM3 Eosinophils # (Auto) TH/MM3 Basophils # (Auto) TH/MM3 CBC Comment AUTO DIFF Differential Total Cells 83 Counted Neutrophils % (Manual) 1 % Lymphocytes % 96 % Monocytes % 2 % Neutrophils # (Manual) 0.0 TH/MM3 Differential Comment FINAL DIFF MANUAL Platelet Estimate LOW Platelet Morphology Comment NORMAL Red Cell Morphology Comment NORMAL Sodium Level 138 MEQ/L Potassium Level 4.3 MEQ/L Chloride Level 102 MEQ/L Carbon Dioxide Level 28.5 MEQ/L Anion Gap 8 MEQ/L Blood Urea Nitrogen 35 MG/DL Creatinine 0.88 MG/DL Estimat Glomerular Filtration 62 ML/MIN Rate Random Glucose 115 MG/DL Calcium Level 8.5 MG/DL Blood Type AB NEGATIVE Crossmatch Irradiated/Leukocyte-Reduced RBC Blood Bank Comment Culture Results Microbiology Date/Time Procedure Status Source Growth 06/04/17 18:05 Aerobic Blood Culture - Preliminary Resulted Blood Peripheral NO GROWTH IN 2 DAYS 06/04/17 18:05 Anaerobic Blood Culture - Preliminary Resulted Blood Peripheral NO GROWTH IN 2 DAYS 06/04/17 18:11 Aerobic Blood Culture - Preliminary Resulted Blood Peripheral NO GROWTH IN 2 DAYS 06/04/17 18:11 Anaerobic Blood Culture - Preliminary Resulted Blood Peripheral NO GROWTH IN 2 DAYS Administered Medications Medications (Trade) Dose Ordered Sig/José Route PRN Reason Start Time Stop Time Status Last Admin Dose Admin Sodium Chloride (NS Flush) 2 ml UNSCH PRN IV FLUSH FLUSH AFTER USING IV ACCESS 05/18/17 10:15 05/30/17 10:15 Sodium Chloride (NS Flush) 2 ml BID IV FLUSH 05/18/17 21:00 06/07/17 08:32 Ondansetron HCl (Zofran Inj) 4 mg Q6H PRN IVP NAUSEA OR VOMITING 05/18/17 10:15 05/30/17 13:58 Senna/Docusate Sodium (Rosalinda-Colace) 1 tab BID PO 05/18/17 21:00 06/04/17 20:04 Amiodarone HCl (Cordarone) 200 mg DAILY PO 05/19/17 09:00 06/07/17 08:31 Levothyroxine Sodium (Synthroid) 50 mcg DAILY@0600 PO 05/19/17 06:00 06/07/17 05:41 Pantoprazole Sodium (Protonix) 40 mg BID PO 05/18/17 21:00 06/07/17 08:31 Pravastatin Sodium (Pravachol) 10 mg DAILY PO 05/19/17 09:00 06/07/17 08:31 Diphenhydramine HCl (Benadryl) 25 mg Q4H PRN PO FOR BLOOD PRODUCTS 05/19/17 01:30 06/05/17 15:01 Acetaminophen (Tylenol) 650 mg Q4H PRN PO BLOOD PRODUCTS OR FEVER>100.4 05/19/17 01:30 06/05/17 15:01 Furosemide (Lasix) 20 mg BID@09,18 PO 05/23/17 18:00 06/07/17 08:30 Patient Own Medication PT OWN MED: [facility]... DAILY@06 PO 05/26/17 06:00 06/07/17 05:43 Potassium Chloride (KCl) 20 meq BID PO 05/28/17 21:00 06/07/17 08:31 Mupirocin 1 applic 1 applic BID EACH NARE 05/30/17 15:00 Hold 06/05/17 21:44 Filgrastim/ Dextrose (Neupogen Inj/ D5W Inj) 26.6 ml @ 106.4 mls/ hr DAILY@14 IV 05/31/17 14:00 06/06/17 13:36 Acyclovir (Zovirax 5% Oint (15 Gm)) 1 applic BID TOPICAL 06/01/17 15:00 06/07/17 08:36 Multi-Ingredient Mouthwash/Gargle 5 ml 5 ml QID SWISH-SWAL 06/03/17 13:00 06/07/17 08:31 Aztreonam 1000 mg/ Sodium Chloride 100 ml @ 200 mls/hr Q8H IV 06/04/17 12:00 06/07/17 04:52 Vancomycin HCl/ Sodium Chloride (Vancomycin Inj/ NS 250 ml Inj) 250 ml @ 250 mls/hr Q24H IV 06/05/17 05:00 06/07/17 05:37 Valacyclovir HCl (Valtrex) 1,000 mg Q8HR PO 06/04/17 14:15 06/07/17 05:41 Heparin Sodium (Porcine) (Heparin Central Flush) 200 units UNSCH PRN IV FLUSH SEE PROTOCOL TABLE 06/06/17 07:00 06/06/17 22:31 Sodium Chloride (NS Flush) 5 ml UNSCH PRN IV FLUSH NEEDED 06/06/17 07:00 06/07/17 04:59 Sodium Chloride (NS Flush) 5 ml UNSCH PRN IV FLUSH SEE PROTOCOL TABLE 06/06/17 07:00 06/07/17 04:58 Methylprednisolone (Medrol) 40 mg DAILY PO 06/07/17 09:00 06/07/17 08:30 Objective Remarks GENERAL: Pleasant female upright in bed SKIN: Warm and dry. HEAD: Normocephalic. EYES: No injection or drainage. NECK: Supple, trachea midline. CARDIOVASCULAR: +S1/S2 RESPIRATORY: Breath sounds equal bilaterally. No accessory muscle use. GASTROINTESTINAL: Abdomen soft, non-tender, nondistended. EXTREMITIES: No cyanosis. right great toe clean bandages in place. NEUROLOGICAL: awake and alert, normal speech. moving all extremities. Assessment/Plan Problem List: (1) Pancytopenia Status: Acute Plan: -- +aplastic anemia -- bone marrow biopsy results show aplastic anemia --05/21/17: ATG and cyclosporine Day 1, had some rigors during ATG which resolved with demerol. Promacta started --05/22/17: continue ATG and cyclosporine. continue Promacta --05/23/17: continue ATG and cyclosporine Day 3. continue Promacta. --05/24/17: last day of ATG and cyclosporine. Neupogen started --05/25: give 1 unit pRBC and 1 unit platelets --05/26: no transfusion today. --05/27: counts stable. WBC improving. neutrophils remain 0 --05/28: Transfuse 1 unit Platelets for count of 18k. --05/29: Counts stable. No transfusion. --05/30: platelet count falling. no transfusion. solu-medrol decreased to 20mg --05/31: give one unit platelets --06/01: give one unit PRBC, continue antibiotic support, Promacta per protocol, cyclosporine and methylprednisolone No sign of serum sickness. --06/02: Erythema R great toe despite broad spectrum Abx. Podiatry consulted. Platelet transfusion delayed until podiatry procedure. Promacta/cyclosporine continue. --06/03: will give 1 unit pRBC. continue abx. --06/04: no transfusion. stop Cefepime, start Azactam. --06.05: give 1 unit blood and platelets. --06/06: no transfusion. increase steroids for serum sickness rash. --06/07: 1 unit pRBC today. (2) Neutropenic fever Status: Acute Plan: --BC 06/04 no growth --BC, 05/30, no growth --wound culture from foot shows no growth. --on Valtrex and Vancomycin, Azactam. --has cellulitis of right ear and herpetic appearing lip lesion, right great toe infection. (3) serum sickness rash Status: Acute Plan: --on solu-medrol 40mg PO daily --d/t treatment for aplastic anemia Assessment 82-year-old female with anemia brought in for immunosuppressive treatment Plan 1. continue solu-medrol 40mg daily for serum sickness rash 2. continue antibiotics 3. reconsult podiatry for worsening infection in great toe. Attending Statement The exam, history, and the medical decision-making described in the above note were completed with the assistance of the mid-level provider. I reviewed and agree with the findings presented. I attest that I had a [id number] encounter with the patient on the same day, and personally performed and documented my assessment and findings in the medical record. Pt seen and examine. Rash worsen in palms and soles. Rash stops at torso, no extension to legs. Cont Solumedrol. Continue support. Noted dry dressing to R toe, progression of redness noted. Clinically doing well. Encourage to ambulate in the room. Cecilia Hughes Jun 07, 2017 11:18 Luna Marie MD Jun 07, 2017 21:31
[2017-06-07] MEDS: diphenhydrAMINE HCL 25 MG CAP PO PRN (11:27)
[2017-06-07] MEDS: ACETAMINOPHEN 325 MG TAB PO PRN (11:27)
[2017-06-07] MEDS: FILGRASTIM INJ 480 MCG in DEXTROSE 5% IN WATER INJ 25 ML IV SCH ×2 (16:11)
--- NOTE | 2017-06-07 18:32 | PD.POD ---
Subjective Podiatric Problems s/p ingrown toenail removal R lateral hallux Past Med/Surg/Social History Social History Smoking Status: Former Smoker Objective Vital Signs Vital Signs Date Time Temp Pulse Resp B/P Pulse Ox O2 Delivery O2 Flow Rate FiO2 06/07/17 15:59 99.1 68 20 125/58 94 06/07/17 12:49 98.7 69 20 133/67 94 06/07/17 12:37 99.9 70 18 129/64 94 06/07/17 11:50 98.2 78 20 122/57 95 06/07/17 07:50 98.7 72 20 135/62 95 06/07/17 04:25 96.7 70 16 144/80 96 06/07/17 00:00 97.2 67 16 111/56 94 06/06/17 20:30 97.6 06/06/17 20:30 70 18 155/72 95 Coded Allergies: No Known Allergies (Verified , 05/08/17) Physical Exam Remarks no classic erythema/edema concerning for infection noted at this time. Appears to be some type of coagulation issue in skin. No purulence to hallux, minimal tenderness. No open lesion. No fluctuance noted there, either. Assessment & Plan A/P Ingrown toenail R hallux, s/p avulsion with Dr Medrano Will continue to monitor through the week. Recommend ordering MRI R foot with and without contrast if concerned for infection in soft tissue vs deeper abscess in the area of R hallux to rule out infection Lani Chris DPM Jun 07, 2017 18:32
[2017-06-07] MEDS: PICC PRN Heparin 100 units/ml Lock Flush IV FLUSH ×2 (18:46→22:56)
--- NOTE | 2017-06-07 19:17 | HHI.PR ---
Subjective Subjective Remarks Awake and responsive resting in bed Low-grade fever 99.1 Hemoglobin low receiving 1 unit packed RBCs (Fernanda Monroy) Review of Systems Constitutional Constitutional: Fatigue, Weakness Constitutional Remarks 10 point ROS done positives noted (Fernanda Monroy) Ears and Nose Ears and Nose Remarks Generalized rash (Fernanda Monroy) Pulmonary Respiratory: Shortness of Breath (occasional low volumes) (Fernanda Monroy) GI/Abdomen GI/Abdomen Remarks Encourage by mouth fluids (Fernanda Monroy) Psychiatric Psychiatric: Normal Mood (Fernanda Monroy) Vitals/Results Intake & Output 06/06/17 06/06/17 06/07/17 15:00 23:00 07:00 Intake Total 480 ml 630 ml Output Total 350 ml Balance 130 ml 630 ml Intake Oral 480 ml 480 ml IV Total 150 ml Output Urine Total 350 ml Vital Signs Vital Signs Date Time Temp Pulse Resp B/P Pulse Ox O2 Delivery O2 Flow Rate FiO2 06/07/17 19:02 108 18 158/96 98 06/07/17 15:59 99.1 68 20 125/58 94 06/07/17 12:49 98.7 69 20 133/67 94 06/07/17 12:37 99.9 70 18 129/64 94 06/07/17 11:50 98.2 78 20 122/57 95 06/07/17 07:50 98.7 72 20 135/62 95 06/07/17 04:25 96.7 70 16 144/80 96 06/07/17 00:00 97.2 67 16 111/56 94 06/06/17 20:30 97.6 06/06/17 20:30 70 18 155/72 95 (Fernanda Monroy) CBC/BMP: 06/07/17 0450 06/07/17 0450 Lab Results Laboratory Tests Test 06/07/17 06/07/17 04:50 06:19 White Blood Count 0.8 TH/MM3 Red Blood Count 2.47 MIL/MM3 Hemoglobin 7.3 GM/DL Hematocrit 20.4 % Mean Corpuscular Volume 82.8 FL Mean Corpuscular Hemoglobin 29.7 PG Mean Corpuscular Hemoglobin 35.9 % Concent Red Cell Distribution Width 14.2 % Platelet Count 17 TH/MM3 Mean Platelet Volume 8.7 FL Neutrophils (%) (Auto) % Lymphocytes (%) (Auto) % Monocytes (%) (Auto) % Eosinophils (%) (Auto) % Basophils (%) (Auto) % Neutrophils # (Auto) TH/MM3 Lymphocytes # (Auto) TH/MM3 Monocytes # (Auto) TH/MM3 Eosinophils # (Auto) TH/MM3 Basophils # (Auto) TH/MM3 CBC Comment AUTO DIFF Differential Total Cells 83 Counted Neutrophils % (Manual) 1 % Lymphocytes % 96 % Monocytes % 2 % Neutrophils # (Manual) 0.0 TH/MM3 Differential Comment FINAL DIFF MANUAL Platelet Estimate LOW Platelet Morphology Comment NORMAL Red Cell Morphology Comment NORMAL Sodium Level 138 MEQ/L Potassium Level 4.3 MEQ/L Chloride Level 102 MEQ/L Carbon Dioxide Level 28.5 MEQ/L Anion Gap 8 MEQ/L Blood Urea Nitrogen 35 MG/DL Creatinine 0.88 MG/DL Estimat Glomerular Filtration 62 ML/MIN Rate Random Glucose 115 MG/DL Calcium Level 8.5 MG/DL Blood Type AB NEGATIVE Crossmatch Irradiated/Leukocyte-Reduced RBC Blood Bank Comment Current Medications Administered Medications Medications (Trade) Dose Ordered Sig/José Route PRN Reason Start Time Stop Time Status Last Admin Dose Admin Sodium Chloride (NS Flush) 2 ml UNSCH PRN IV FLUSH FLUSH AFTER USING IV ACCESS 05/18/17 10:15 05/30/17 10:15 Sodium Chloride (NS Flush) 2 ml BID IV FLUSH 05/18/17 21:00 06/07/17 08:32 Ondansetron HCl (Zofran Inj) 4 mg Q6H PRN IVP NAUSEA OR VOMITING 05/18/17 10:15 05/30/17 13:58 Senna/Docusate Sodium (Rosalinda-Colace) 1 tab BID PO 05/18/17 21:00 06/04/17 20:04 Amiodarone HCl (Cordarone) 200 mg DAILY PO 05/19/17 09:00 06/07/17 08:31 Levothyroxine Sodium (Synthroid) 50 mcg DAILY@0600 PO 05/19/17 06:00 06/07/17 05:41 Pantoprazole Sodium (Protonix) 40 mg BID PO 05/18/17 21:00 06/07/17 08:31 Pravastatin Sodium (Pravachol) 10 mg DAILY PO 05/19/17 09:00 06/07/17 08:31 Diphenhydramine HCl (Benadryl) 25 mg Q4H PRN PO FOR BLOOD PRODUCTS 05/19/17 01:30 06/07/17 11:27 Acetaminophen (Tylenol) 650 mg Q4H PRN PO BLOOD PRODUCTS OR FEVER>100.4 05/19/17 01:30 06/07/17 11:27 Furosemide (Lasix) 20 mg BID@18 PO 05/23/17 18:00 06/07/17 16:11 Patient Own Medication PT OWN MED: [facility]... DAILY@06 PO 05/26/17 06:00 06/07/17 05:43 Potassium Chloride (KCl) 20 meq BID PO 05/28/17 21:00 06/07/17 08:31 Mupirocin 1 applic 1 applic BID EACH NARE 05/30/17 15:00 Hold 06/05/17 21:44 Filgrastim/ Dextrose (Neupogen Inj/ D5W Inj) 26.6 ml @ 106.4 mls/ hr DAILY@14 IV 05/31/17 14:00 06/07/17 16:11 Acyclovir (Zovirax 5% Oint (15 Gm)) 1 applic BID TOPICAL 06/01/17 15:00 06/07/17 08:36 Multi-Ingredient Mouthwash/Gargle 5 ml 5 ml QID SWISH-SWAL 06/03/17 13:00 06/07/17 16:11 Aztreonam 1000 mg/ Sodium Chloride 100 ml @ 200 mls/hr Q8H IV 06/04/17 12:00 06/07/17 11:27 Vancomycin HCl/ Sodium Chloride (Vancomycin Inj/ NS 250 ml Inj) 250 ml @ 250 mls/hr Q24H IV 06/05/17 05:00 06/07/17 05:37 Valacyclovir HCl (Valtrex) 1,000 mg Q8HR PO 06/04/17 14:15 06/07/17 16:10 Heparin Sodium (Porcine) (Heparin Central Flush) 200 units UNSCH PRN IV FLUSH SEE PROTOCOL TABLE 06/06/17 07:00 06/07/17 18:46 Sodium Chloride (NS Flush) 5 ml UNSCH PRN IV FLUSH NEEDED 06/06/17 07:00 06/07/17 04:59 Sodium Chloride (NS Flush) 5 ml UNSCH PRN IV FLUSH SEE PROTOCOL TABLE 06/06/17 07:00 06/07/17 04:58 Methylprednisolone (Medrol) 40 mg DAILY PO 06/07/17 09:00 06/07/17 08:30 (Fernanda Monroy) Physical Exam General General Appearance: Well Developed, Comfortable, Pale (Fernanda MonroyP) Eyes Eye Exam: Pupils Reactive (Fernanda Monroy CASING INSPECTOR) Ears & Nose Ears & Nose Exam: Nasal Mucosa [place] (Fernanda Monroy CASING INSPECTOR) Throat Throat Exam: Oral Mucosa [place] & Moist (Fernanda Monroy CASING INSPECTOR) Neck Neck Exam: Trachea Midline (Fernanda Monroy [employer]ING INSPECTOR) Pulmonary Resp Exam: Clear Bilaterally, Breath Sounds Equal, No Distress (Fernanda MonroyP) Cardiology CV Exam: Good Perfusion (Fernanda MonroyP) Gastrointestinal/Abdomen GI Exam: Soft, Non-Tender, Bowel Sounds Present, Non-Distended (Fernanda Monroy [employer]ING INSPECTOR) Musculoskeletal MS Exam: Normal Tone (Fernanda Monroy CASING INSPECTOR) Integumentary Skin Exam: Warm, Dry, Ulcer(s) (top lip with ulcerated area ) (Fernanda MonroyP) Extremeties Extremities Exam: No Edema, Pedal Pulses Palpable Extremeties Remarks Great toe right foot wound, previous ingrown toenail, edema (Fernanda Monroy CASING INSPECTOR) Neurologic Neuro Exam: Alert, Awake, Oriented, Speech Clear, 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, [employer]lower [employer] Manager Equal, 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 (Fernanda Monroy CASING INSPECTOR) Psychiatric Psych Exam: Appropriate Responses (Fernanda MonroyP) PUD Prophylasis PUD Prophylaxis: Protonix (Fernanda MonroyP) Assessment/Plan Assessment/Plan Right hallux pain/ecchymosis/swelling, status post bedside procedure 11/20/2016 Still has 0 absolute neutrophils 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, secondary to herpes simplex type I, improved Right external ear cellulitis, Leukopenia, No evidence of gout Symptomatic anemia, Improved after transfusion Severe profound symptomatic thrombocytopenia, Uncontrolled aplastic anemia Acellular bone marrow per biopsy report Status post bone marrow biopsy 05/18/17 Recent diagnosis of atrial fibrillation Recent diagnosis of gastric erosions Maculopapular rash Management Low grade fever, 99.1 Podiatry consult and appreciate input for right great toe, bulky dressing clean dry and intact, no acute bleeding noted wound care appreciate ID input Topical Zovirax to upper lip cultures, no growth blood cultures, positive when culture Mupirocin cream for both nostrils Acyclovir dc, changed to Valtrex Antibiotic therapy Rash, generalized on trunk, facial, hands no itching , steroids begun HTN, medical mangement oncology following 1 unit packed RBCs today, anemia now decreased again to 7.3 hgb Follow CBC D/W RN D/W Dr. Borjas, seen on her behalf D/W pt (Fernanda Monroy) Assessment/Plan patient seen and examined agree with above assessment and plan continue current care d/w Fernanda MIJARES discussed with patient (Tayla Borjas MD) Fernanda Monroy Jun 07, 2017 19:17 Tayla Borjas MD Jun 07, 2017 19:31
[2017-06-08] VITALS (11 sets, daily range): BP systolic 92–169; BP diastolic 45–77; PULSE 70–110; RESP 16–20; TEMP 96.1–101.9; O2SAT 91–96
[2017-06-08] MEDS ORDERED: PHARMACY ORDERED LAB ONE (04:45)
[2017-06-08] MEDS: ONDANSETRON HCL 4 MG/2 ML VIAL IVP PRN (04:56)
[2017-06-08] MEDS: AZTREONAM INJ 1,000 MG in SODIUM CHLORIDE 0.9% INJ 100 ML IV SCH ×3 (05:03→20:29)
[2017-06-08 05:47] LABS: HEMATOCRIT 26.7 % (35.0-46.0); MEAN CELL VOLUME 84.2 FL (80.0-100.0); MEAN CORPUSCULAR HEMOGLOBIN 29.3 PG (27.0-34.0); MEAN CORPUSCULAR HGB CONC 34.8 % (32.0-36.0); RED BLOOD COUNT 3.17 MIL/MM3 (4.00-5.30); RED CELL DISTRIBUTION WIDTH 14.1 % (11.6-17.2); WHITE BLOOD COUNT 1.3 TH/MM3 (4.0-11.0)
[2017-06-08] MEDS: VANCOMYCIN 1,000 MG/NS 250 ML IV SCH ×2 (05:59)
[2017-06-08] MEDS: CLOTRIMAZOLE 10 MG TROCHE BUCCAL SCH ×5 (06:00→22:03)
[2017-06-08] MEDS: valACYclovir HCL 500 MG TAB PO SCH ×3 (06:00→21:51)
[2017-06-08] MEDS: LEVOTHYROXINE SODIUM 50 MCG TAB PO SCH (06:01)
[2017-06-08] MEDS: PROMACTA 50 MG PO SCH (06:01)
[2017-06-08 06:04] LABS: BICARBONATE 27.7 MEQ/L (21.0-32.0)
[2017-06-08 06:05] LABS: HEMO FLAGS AUTO DIFF
[2017-06-08 06:06] LABS: PLATELET COUNT 9 TH/MM3 (150-450)
[2017-06-08 06:07] LABS: VANCOMYCIN TROUGH 13.6 MCG/ML (5.0-10.0)
[2017-06-08 08:08] LABS: BANDS 1 % (0-6); POLYS (SEG NEUTROPHILS) 1 % (16-70); WBC DIFF SAMPLE 100
[2017-06-08 08:09] LABS: OVALOCYTES 1+ (NORMAL); PLATELET ESTIMATE SMEAR RARE (NORMAL); PLATELET MORPHOLOGY NORMAL (NORMAL); SCAN/DIFF FINAL DIFF MANUAL; SPHEROCYTES 1+ (NORMAL)
[2017-06-08] MEDS: NYSTAT/DIPHENHY/LIDO MOUTHWASH (Adult) 120ML SWISH-SWAL SCH ×4 (09:49→20:30)
[2017-06-08] MEDS: PANTOPRAZOLE SOD 40 MG DELAYED RELEASE TAB PO SCH ×2 (09:49→20:30)
[2017-06-08] MEDS: FUROSEMIDE 20 MG TAB PO SCH (09:49)
[2017-06-08] MEDS: PRAVASTATIN SOD 10 MG TAB PO SCH (09:49)
[2017-06-08] MEDS: AMIODARONE 200 MG TAB PO SCH (09:49)
[2017-06-08] MEDS: PICC Daily Heparin 100 unit/mL Lock Flush IV FLUSH SCH (09:49)
[2017-06-08] MEDS: methylPREDNISolone 4 MG TAB PO SCH (09:49)
[2017-06-08] MEDS: POTASSIUM CHLORIDE 20 MEQ CONTROLLED RELEASE TAB PO SCH (09:49)
[2017-06-08] MEDS: DOCUSATE SODIUM 50 MG/SENNA 8.6 MG TAB PO SCH ×2 (09:50→20:30)
[2017-06-08] MEDS: SODIUM CHLORIDE 0.9% FLUSH 10 ML FLUSH IV FLUSH SCH ×2 (09:50→20:35)
[2017-06-08] MEDS: ACETAMINOPHEN 325 MG TAB PO PRN (11:28)
[2017-06-08] MEDS: diphenhydrAMINE HCL 25 MG CAP PO PRN ×2 (11:29→22:30)
[2017-06-08] MEDS: ACYCLOVIR 5% OINT 15 APPLIC/15 GM TUBE TOPICAL SCH ×2 (11:29→20:35)
--- NOTE | 2017-06-08 12:42 | PD.ONC.PN ---
Subjective Subjective Remarks Tmax 101.9 this morning. Patient feeling very weak today and has been diaphoretic. No other symptoms. No cough or congestion. No pain. Objective Data Date Time Temp Pulse Resp B/P Pulse Ox O2 Delivery O2 Flow Rate FiO2 06/08/17 11:30 101.9 82 20 101/51 92 06/08/17 07:50 100.6 90 20 101/51 91 06/08/17 04:55 101.0 06/08/17 04:00 100.2 86 16 169/77 94 06/08/17 00:00 98.9 70 16 145/64 96 06/07/17 20:00 98.9 76 16 145/66 95 06/07/17 19:02 108 18 158/96 98 06/07/17 15:59 99.1 68 20 125/58 94 06/07/17 12:49 98.7 69 20 133/67 94 06/08/17 06/08/17 06/08/17 07:00 15:00 23:00 Intake Total 250 ml Output Total 300 ml Balance -50 ml Result Diagram: 06/08/17 0500 06/08/17 0500 Laboratory Results Laboratory Tests Test 06/08/17 06/08/17 05:00 06:48 White Blood Count 1.3 TH/MM3 Red Blood Count 3.17 MIL/MM3 Hemoglobin 9.3 GM/DL Hematocrit 26.7 % Mean Corpuscular Volume 84.2 FL Mean Corpuscular Hemoglobin 29.3 PG Mean Corpuscular Hemoglobin 34.8 % Concent Red Cell Distribution Width 14.1 % Platelet Count 9 TH/MM3 Mean Platelet Volume 9.1 FL Neutrophils (%) (Auto) % Lymphocytes (%) (Auto) % Monocytes (%) (Auto) % Eosinophils (%) (Auto) % Basophils (%) (Auto) % Neutrophils # (Auto) TH/MM3 Lymphocytes # (Auto) TH/MM3 Monocytes # (Auto) TH/MM3 Eosinophils # (Auto) TH/MM3 Basophils # (Auto) TH/MM3 CBC Comment AUTO DIFF Differential Total Cells 100 Counted Neutrophils % (Manual) 1 % Band Neutrophils % 1 % Lymphocytes % 96 % Monocytes % 2 % Neutrophils # (Manual) 0.0 TH/MM3 Differential Comment FINAL DIFF MANUAL Platelet Estimate RARE Platelet Morphology Comment NORMAL Spherocytes 1+ Ovalocytes 1+ Sodium Level 135 MEQ/L Potassium Level 4.0 MEQ/L Chloride Level 99 MEQ/L Carbon Dioxide Level 27.7 MEQ/L Anion Gap 8 MEQ/L Blood Urea Nitrogen 32 MG/DL Creatinine 0.90 MG/DL Estimat Glomerular Filtration 60 ML/MIN Rate Random Glucose 92 MG/DL Calcium Level 8.5 MG/DL Vancomycin Level Trough 13.6 MCG/ML Blood Bank Comment Culture Results Microbiology Date/Time Procedure Status Source Growth 06/08/17 05:00 Aerobic Blood Culture Received Blood Peripheral Pending 06/08/17 05:00 Anaerobic Blood Culture Received Blood Peripheral Pending Administered Medications Medications (Trade) Dose Ordered Sig/José Route PRN Reason Start Time Stop Time Status Last Admin Dose Admin Sodium Chloride (NS Flush) 2 ml UNSCH PRN IV FLUSH FLUSH AFTER USING IV ACCESS 05/18/17 10:15 05/30/17 10:15 Sodium Chloride (NS Flush) 2 ml BID IV FLUSH 05/18/17 21:00 06/08/17 09:50 Ondansetron HCl (Zofran Inj) 4 mg Q6H PRN IVP NAUSEA OR VOMITING 05/18/17 10:15 06/08/17 04:56 Senna/Docusate Sodium (Rosalinda-Colace) 1 tab BID PO 05/18/17 21:00 06/08/17 09:50 Amiodarone HCl (Cordarone) 200 mg DAILY PO 05/19/17 09:00 06/08/17 09:49 Levothyroxine Sodium (Synthroid) 50 mcg DAILY@0600 PO 05/19/17 06:00 06/08/17 06:01 Pantoprazole Sodium (Protonix) 40 mg BID PO 05/18/17 21:00 06/08/17 09:49 Pravastatin Sodium (Pravachol) 10 mg DAILY PO 05/19/17 09:00 06/08/17 09:49 Diphenhydramine HCl (Benadryl) 25 mg Q4H PRN PO FOR BLOOD PRODUCTS 05/19/17 01:30 06/08/17 11:29 Acetaminophen (Tylenol) 650 mg Q4H PRN PO BLOOD PRODUCTS OR FEVER>100.4 05/19/17 01:30 06/08/17 11:28 Furosemide (Lasix) 20 mg BID@,18 PO 05/23/17 18:00 06/08/17 09:49 Patient Own Medication PT OWN MED: [facility]... DAILY@06 PO 05/26/17 06:00 06/08/17 06:01 Potassium Chloride (KCl) 20 meq BID PO 05/28/17 21:00 06/08/17 09:49 Mupirocin 1 applic 1 applic BID EACH NARE 05/30/17 15:00 Hold 06/05/17 21:44 Filgrastim/ Dextrose (Neupogen Inj/ D5W Inj) 26.6 ml @ 106.4 mls/ hr DAILY@14 IV 05/31/17 14:00 06/07/17 16:11 Acyclovir (Zovirax 5% Oint (15 Gm)) 1 applic BID TOPICAL 06/01/17 15:00 06/08/17 11:29 Multi-Ingredient Mouthwash/Gargle 5 ml 5 ml QID SWISH-SWAL 06/03/17 13:00 06/08/17 09:49 Aztreonam 1000 mg/ Sodium Chloride 100 ml @ 200 mls/hr Q8H IV 06/04/17 12:00 06/08/17 05:03 Vancomycin HCl/ Sodium Chloride (Vancomycin Inj/ NS 250 ml Inj) 250 ml @ 250 mls/hr Q24H IV 06/05/17 05:00 06/08/17 05:59 Valacyclovir HCl (Valtrex) 1,000 mg Q8HR PO 06/04/17 14:15 06/08/17 06:00 Heparin Sodium (Porcine) (Heparin Central Flush) 200 units DAILY IV FLUSH 06/06/17 09:00 06/08/17 09:49 Sodium Chloride (NS Flush) 5 ml UNSCH PRN IV FLUSH SEE PROTOCOL TABLE 06/06/17 07:00 06/07/17 22:56 Heparin Sodium (Porcine) (Heparin Central Flush) 200 units UNSCH PRN IV FLUSH SEE PROTOCOL TABLE 06/06/17 07:00 06/07/17 22:56 Sodium Chloride (NS Flush) 5 ml UNSCH PRN IV FLUSH NEEDED 06/06/17 07:00 06/07/17 04:59 Sodium Chloride (NS Flush) 5 ml UNSCH PRN IV FLUSH SEE PROTOCOL TABLE 06/06/17 07:00 06/07/17 04:58 Methylprednisolone (Medrol) 40 mg DAILY PO 06/07/17 09:00 06/08/17 09:49 Objective Remarks GENERAL: Pleasant female sitting up in bed. appears weak and diaphoretic. 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 HEAD: Normocephalic. EYES: No injection or drainage. NECK: Supple, trachea midline. CARDIOVASCULAR: +S1/S2 RESPIRATORY: Breath sounds equal bilaterally. No accessory muscle use. GASTROINTESTINAL: Abdomen soft, non-tender, nondistended. EXTREMITIES: No cyanosis. right great toe with clean bandage. dark red stain along dorsum of foot. NEUROLOGICAL: aox3. normal speech. moving all extremities. Assessment/Plan Problem List: (1) Pancytopenia Status: Acute Plan: -- +aplastic anemia -- bone marrow biopsy results show aplastic anemia --05/21/17: ATG and cyclosporine Day 1, had some rigors during ATG which resolved with demerol. Promacta started --05/22/17: continue ATG and cyclosporine. continue Promacta --05/23/17: continue ATG and cyclosporine Day 3. continue Promacta. --05/24/17: last day of ATG and cyclosporine. Neupogen started --05/25: give 1 unit pRBC and 1 unit platelets --05/26: no transfusion today. --05/27: counts stable. WBC improving. neutrophils remain 0 --05/28: Transfuse 1 unit Platelets for count of 18k. --05/29: Counts stable. No transfusion. --05/30: platelet count falling. no transfusion. solu-medrol decreased to 20mg --05/31: give one unit platelets --06/01: give one unit PRBC, continue antibiotic support, Promacta per protocol, cyclosporine and methylprednisolone No sign of serum sickness. --06/02: Erythema R great toe despite broad spectrum Abx. Podiatry consulted. Platelet transfusion delayed until podiatry procedure. Promacta/cyclosporine continue. --06/03: will give 1 unit pRBC. continue abx. --06/04: no transfusion. stop Cefepime, start Azactam. --06.05: give 1 unit blood and platelets. --06/06: no transfusion. increase steroids for serum sickness rash. --06/07: 1 unit pRBC today. --06/08: 1 unit platelets today. (2) Neutropenic fever Status: Acute Plan: --BC 06/08: pending. --BC 06/04 no growth --BC, 05/30, no growth --wound culture from foot shows no growth. --on Valtrex and Vancomycin, Azactam. --has cellulitis of right ear and herpetic appearing lip lesion, right great toe infection. (3) serum sickness rash Status: Acute Plan: --on solu-medrol 40mg PO daily --d/t ATG/cyclosporine tx Assessment 82-year-old female with anemia brought in for immunosuppressive treatment Plan 1. continue solu-medrol 40mg daily for serum sickness rash 2. continue antibiotics 3. give 1 unit platelets today 4. podiatry note reviewed, erythema thought to be due to blood pooling rather than infection. 5. will ask ID to see again today for recurrent fevers. Attending Statement The exam, history, and the medical decision-making described in the above note were completed with the assistance of the mid-level provider. I reviewed and agree with the findings presented. I attest that I had a [id number] encounter with the patient on the same day, and personally performed and documented my assessment and findings in the medical record. Pt seen and examined. State she feels better than this morning. Noted serum sickness rash persist in palms and feet, affecting chest abdomen, back now trending to legs. R toe swollen with tracking redness, dry crust over inner side of nail. Hopeful of some recovery, seeing monocytes but in differential through still 0 ANC Continue platelet transfusion and RBC transfusion for symptoms. Monitor fever, noted Blood culture decreased. If continue low, transfer to ICU. Cecilia Hughes Jun 08, 2017 12:42 Luna Marie MD Jun 08, 2017 18:33
[2017-06-08] MEDS: FILGRASTIM INJ 480 MCG in DEXTROSE 5% IN WATER INJ 25 ML IV SCH ×2 (15:26)
[2017-06-08] MEDS: SODIUM CHLOR 0.9% 1000 ML INJ 1,000 ML IV SCH (15:27)
--- NOTE | 2017-06-08 15:46 | HHI.PR ---
Subjective Subjective Remarks Awake and responsive resting in bed Low-grade fever 99.1 Hemoglobin low receiving 1 unit packed RBCs Review of Systems Constitutional Constitutional: Fatigue, Weakness Constitutional Remarks 10 point ROS done positives noted Ears and Nose Ears and Nose Remarks Generalized rash Pulmonary Respiratory: Shortness of Breath (occasional low volumes) GI/Abdomen GI/Abdomen Remarks Encourage by mouth fluids Psychiatric Psychiatric: Normal Mood Vitals/Results Intake & Output 06/07/17 06/07/17 06/08/17 15:00 23:00 07:00 Intake Total 830 ml 460 ml 250 ml Output Total 450 ml 300 ml 300 ml Balance 380 ml 160 ml -50 ml Intake Oral 480 ml 350 ml 250 ml IV Total 350 ml 110 ml Output Urine Total 450 ml 300 ml 300 ml # Voids 2 # Bowel Movements 0 0 0 Vital Signs Vital Signs Date Time Temp Pulse Resp B/P Pulse Ox O2 Delivery O2 Flow Rate FiO2 06/08/17 14:43 98.5 71 18 99/46 93 06/08/17 13:14 99.1 70 18 97/52 94 06/08/17 12:57 99.8 71 20 101/51 94 06/08/17 12:43 99.6 73 20 99/45 94 06/08/17 11:30 101.9 82 20 101/51 92 06/08/17 07:50 100.6 90 20 101/51 91 06/08/17 04:55 101.0 06/08/17 04:00 100.2 86 16 169/77 94 06/08/17 00:00 98.9 70 16 145/64 96 06/07/17 20:00 98.9 76 16 145/66 95 06/07/17 19:02 108 18 158/96 98 06/07/17 15:59 99.1 68 20 125/58 94 CBC/BMP: 06/08/17 0500 06/08/17 0500 Lab Results Laboratory Tests Test 06/08/17 06/08/17 05:00 06:48 White Blood Count 1.3 TH/MM3 Red Blood Count 3.17 MIL/MM3 Hemoglobin 9.3 GM/DL Hematocrit 26.7 % Mean Corpuscular Volume 84.2 FL Mean Corpuscular Hemoglobin 29.3 PG Mean Corpuscular Hemoglobin 34.8 % Concent Red Cell Distribution Width 14.1 % Platelet Count 9 TH/MM3 Mean Platelet Volume 9.1 FL Neutrophils (%) (Auto) % Lymphocytes (%) (Auto) % Monocytes (%) (Auto) % Eosinophils (%) (Auto) % Basophils (%) (Auto) % Neutrophils # (Auto) TH/MM3 Lymphocytes # (Auto) TH/MM3 Monocytes # (Auto) TH/MM3 Eosinophils # (Auto) TH/MM3 Basophils # (Auto) TH/MM3 CBC Comment AUTO DIFF Differential Total Cells 100 Counted Neutrophils % (Manual) 1 % Band Neutrophils % 1 % Lymphocytes % 96 % Monocytes % 2 % Neutrophils # (Manual) 0.0 TH/MM3 Differential Comment FINAL DIFF MANUAL Platelet Estimate RARE Platelet Morphology Comment NORMAL Spherocytes 1+ Ovalocytes 1+ Sodium Level 135 MEQ/L Potassium Level 4.0 MEQ/L Chloride Level 99 MEQ/L Carbon Dioxide Level 27.7 MEQ/L Anion Gap 8 MEQ/L Blood Urea Nitrogen 32 MG/DL Creatinine 0.90 MG/DL Estimat Glomerular Filtration 60 ML/MIN Rate Random Glucose 92 MG/DL Calcium Level 8.5 MG/DL Vancomycin Level Trough 13.6 MCG/ML Blood Bank Comment Microbiology Microbiology 06/08/17 Aerobic Blood Culture, Received Pending 06/08/17 Anaerobic Blood Culture, Received Pending Physical Exam General General Appearance: Well Developed, Comfortable, Pale Eyes Eye Exam: Pupils Reactive Ears & Nose Ears & Nose Exam: Nasal Mucosa [place] Throat Throat Exam: Oral Mucosa [place] & Moist Neck Neck Exam: Trachea Midline Pulmonary Resp Exam: Clear Bilaterally, Breath Sounds Equal, No Distress Cardiology CV Exam: Good Perfusion Gastrointestinal/Abdomen GI Exam: Soft, Non-Tender, Bowel Sounds Present, Non-Distended Musculoskeletal MS Exam: Normal Tone Integumentary Skin Exam: Warm, Dry, Ulcer(s) (top lip with ulcerated area ) Extremeties Extremities Exam: No Edema, Pedal Pulses Palpable Extremeties Remarks Great toe right foot wound, previous ingrown toenail, edema Neurologic Neuro Exam: Alert, Awake, Oriented, Speech Clear, 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, Funder Equal, 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 Psychiatric Psych Exam: Appropriate Responses PUD Prophylasis PUD Prophylaxis: Protonix Assessment/Plan Assessment/Plan Assessment/Plan Right hallux pain/ecchymosis/swelling, status post bedside procedure 11/20/2016 Still has 0 absolute neutrophils 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, secondary to herpes simplex type I, improved Right external ear cellulitis, Leukopenia, Symptomatic anemia, Improved after transfusion Severe profound symptomatic thrombocytopenia, Uncontrolled aplastic anemia Acellular bone marrow per biopsy report Status post bone marrow biopsy 05/18/17 Recent diagnosis of atrial fibrillation Recent diagnosis of gastric erosions Maculopapular rash Management vital signs reviewed, new fever, 101.9, BP 99/46 labs reviewed, WBC 1.3 platelets low ,9, 1 unit platelets given, NA 135, now IVF, anemia 9.3 Podiatry consult and appreciate input for right great toe, bulky dressing clean dry and intact, no acute bleeding noted wound care, changed today with vaseline gauze applied. Thought not to be infected for now, positive staph culture on 06-02 No evidence of gout, in rt. great toe wound appreciate ID input cultures, no growth blood cultures, Mupirocin cream for both nostrils Acyclovir dc, changed to Valtrex Antibiotic therapy emperic , reconsult for new fever today, 101.9 Rash, generalized on trunk, facial, hands, no acute change no itching , steroids begun HTN, medical mangement, oncology following BP lower than her norm, 99/46 IV hydration initiated today 1 unit platelets today Follow CBC Not ready for discharge D/W RN D/W Dr. Borjas, seen on her behalf D/W pt Fernanda Monroy Jun 08, 2017 15:46
--- NOTE | 2017-06-08 20:46 | HHI.IDPN ---
Subjective Subjective Remarks I was asked to see the pt for recurretn fever Rash more prominent non pruritic on back, torso + fever last night up to 101.9 No fever today She states she is feeling well denies pain anywhre no diarrhea R hallux clx - no growth Antibiotics vanco azactam valtrex micafungin Allergies: Coded Allergies: No Known Allergies (Verified , 05/08/17) Objective . Vital Signs Date Time Temp Pulse Resp B/P Pulse Ox O2 Delivery O2 Flow Rate FiO2 06/08/17 20:00 97.2 110 16 92/54 94 06/08/17 15:50 96.1 103 20 101/53 94 06/08/17 14:43 98.5 71 18 99/46 93 06/08/17 13:14 99.1 70 18 97/52 94 06/08/17 12:57 99.8 71 20 101/51 94 06/08/17 12:43 99.6 73 20 99/45 94 06/08/17 11:30 101.9 82 20 101/51 92 06/08/17 07:50 100.6 90 20 101/51 91 06/08/17 04:55 101.0 06/08/17 04:00 100.2 86 16 169/77 94 06/08/17 00:00 98.9 70 16 145/64 96 06/07/17 06/07/17 06/08/17 15:00 23:00 07:00 Intake Total 830 ml 460 ml 250 ml Output Total 450 ml 300 ml 300 ml Balance 380 ml 160 ml -50 ml Intake Oral 480 ml 350 ml 250 ml IV Total 350 ml 110 ml Output Urine Total 450 ml 300 ml 300 ml # Voids 2 # Bowel Movements 0 0 0 . Laboratory Tests Test 06/07/17 06/08/17 04:50 05:00 White Blood Count 0.8 TH/MM3 1.3 TH/MM3 Red Blood Count 2.47 MIL/MM3 3.17 MIL/MM3 Hemoglobin 7.3 GM/DL 9.3 GM/DL Hematocrit 20.4 % 26.7 % Mean Corpuscular Volume 82.8 FL 84.2 FL Mean Corpuscular Hemoglobin 29.7 PG 29.3 PG Mean Corpuscular Hemoglobin 35.9 % 34.8 % Concent Red Cell Distribution Width 14.2 % 14.1 % Platelet Count 17 TH/MM3 9 TH/MM3 Mean Platelet Volume 8.7 FL 9.1 FL Neutrophils (%) (Auto) % % Lymphocytes (%) (Auto) % % Monocytes (%) (Auto) % % Eosinophils (%) (Auto) % % Basophils (%) (Auto) % % Neutrophils # (Auto) TH/MM3 TH/MM3 Lymphocytes # (Auto) TH/MM3 TH/MM3 Monocytes # (Auto) TH/MM3 TH/MM3 Eosinophils # (Auto) TH/MM3 TH/MM3 Basophils # (Auto) TH/MM3 TH/MM3 CBC Comment AUTO DIFF AUTO DIFF Differential Total Cells 83 100 Counted Neutrophils % (Manual) 1 % 1 % Lymphocytes % 96 % 96 % Monocytes % 2 % 2 % Neutrophils # (Manual) 0.0 TH/MM3 0.0 TH/MM3 Differential Comment FINAL DIFF FINAL DIFF MANUAL MANUAL Platelet Estimate LOW RARE Platelet Morphology Comment NORMAL NORMAL Red Cell Morphology Comment NORMAL Band Neutrophils % 1 % Spherocytes 1+ Ovalocytes 1+ Laboratory Tests Test 06/07/17 06/08/17 04:50 05:00 Sodium Level 138 MEQ/L 135 MEQ/L Potassium Level 4.3 MEQ/L 4.0 MEQ/L Chloride Level 102 MEQ/L 99 MEQ/L Carbon Dioxide Level 28.5 MEQ/L 27.7 MEQ/L Anion Gap 8 MEQ/L 8 MEQ/L Blood Urea Nitrogen 35 MG/DL 32 MG/DL Creatinine 0.88 MG/DL 0.90 MG/DL Estimat Glomerular Filtration 62 ML/MIN 60 ML/MIN Rate Random Glucose 115 MG/DL 92 MG/DL Calcium Level 8.5 MG/DL 8.5 MG/DL Microbiology Date/Time Procedure Status Source Growth 06/08/17 05:00 Aerobic Blood Culture Received Blood Peripheral Pending 06/08/17 05:00 Anaerobic Blood Culture Received Blood Peripheral Pending Imaging Last Impressions Chest X-Ray 05/31/17 0600 Signed Impressions: Service Date/Time: Wednesday, May 31, 2017 05:54 - CONCLUSION: 1. Chronic interstitial lung disease. 2. No new focal pulmonary infiltrates are demonstrated. Maurice Jean Baptiste MD Bone Biopsy CT 05/18/17 1456 Signed Impressions: Service Date/Time: Thursday, May 18, 2017 15:21 - CONCLUSION: 1. Uncomplicated CT guided bone marrow aspirate. 2. Uncomplicated CT guided bone marrow biopsy. Robert Cruz MD FACR PICC Line Insertion 05/18/17 0000 Signed Impressions: Service Date/Time: Thursday, May 18, 2017 13:31 - CONCLUSION: 1. Uncomplicated central venous Power PICC line placement. 2. The PICC line can be used immediately. Meliton Lerma MD Physical Exam CONSTITUTIONAL/GENERAL: This is an adequately nourished patient, in no apparent distress. TUBES/LINES/DRAINS: SKIN: + prominent non blanching rash macula-papula on th back, torso, non pruritic Skin temperature appropriate. Not diaphoretic. EYES: Pupils equal and round and reactive. . No scleral icterus. No injection or drainage. ENT: Hearing grossly normal. Nose without bleeding or purulent drainage. Oral mucosae without visible erythema, exudates, masses, or lesions. Crusted lesions on upper lip healing , still some induration present CARDIOVASCULAR: Regular rate and rhythm without murmurs, gallops, or rubs. No JVD. RESPIRATORY/CHEST: Symmetric, unlabored respirations. Clear to auscultation. Breath sounds equal bilaterally. No wheezes, rales, or rhonchi. GASTROINTESTINAL: Abdomen soft, non-tender, nondistended. No hepato-splenomegaly , or palpable masses. Bowel sounds present. MUSCULOSKELETAL: Extremities without clubbing, cyanosis, or edema. R hallux with p dressing in place a NEUROLOGICAL: Awake and alert. Motor and sensory grossly within normal limits. Follows commands. Clear speech. Moves all extremities. PSYCHIATRIC: calm and cooperative Assessment & Plan Remarks Aplastic anemia, pancytopenia Severe neutropenia, ANC of 0, refractory Severe thrombocytopenia R pinna cellilits - resolved Upper lip crusted lesion - slowly improving on acyclovi - HSV1+ Fever, low grade R hallux paronichia with ascending mild cellulitis - clx with Staph hominis, cw skin colonisation Skin rash mostly cw allergic reaction ? cefepime REC's: cont vanco, cont azactam will add micafungin if cont to spike cont valtrex fu repeat BC dw Roseann Owens MD Jun 08, 2017 20:46
[2017-06-09] VITALS (8 sets, daily range): BP systolic 95–127; BP diastolic 55–67; PULSE 66–109; RESP 16–20; TEMP 96.6–100.2; O2SAT 93–95
[2017-06-09] MEDS: SODIUM CHLOR 0.9% 1000 ML INJ 1,000 ML IV SCH (00:01)
[2017-06-09] MEDS: AZTREONAM INJ 1,000 MG in SODIUM CHLORIDE 0.9% INJ 100 ML IV SCH ×3 (03:46→21:29)
[2017-06-09] MEDS: VANCOMYCIN 1,000 MG/NS 250 ML IV SCH ×2 (04:41)
[2017-06-09] MEDS: LEVOTHYROXINE SODIUM 50 MCG TAB PO SCH (06:18)
[2017-06-09] MEDS: CLOTRIMAZOLE 10 MG TROCHE BUCCAL SCH ×5 (06:18→21:25)
[2017-06-09] MEDS: valACYclovir HCL 500 MG TAB PO SCH ×3 (06:18→21:24)
[2017-06-09] MEDS: PROMACTA 50 MG PO SCH (06:25)
[2017-06-09 07:16] LABS: HEMATOCRIT 21.2 % (35.0-46.0); MEAN CELL VOLUME 83.7 FL (80.0-100.0); MEAN CORPUSCULAR HEMOGLOBIN 29.6 PG (27.0-34.0); MEAN CORPUSCULAR HGB CONC 35.4 % (32.0-36.0); PLATELET COUNT 24 TH/MM3 (150-450); RED BLOOD COUNT 2.53 MIL/MM3 (4.00-5.30); WHITE BLOOD COUNT 1.4 TH/MM3 (4.0-11.0)
[2017-06-09 07:32] LABS: HEMO FLAGS AUTO DIFF
[2017-06-09 10:11] LABS: NEUTROPHIL # MANUAL DIFF 0.1 TH/MM3 (1.8-7.7); POLYS (SEG NEUTROPHILS) 4 % (16-70); WBC DIFF SAMPLE 100
[2017-06-09 10:12] LABS: PLATELET ESTIMATE SMEAR LOW (NORMAL); PLATELET MORPHOLOGY NORMAL (NORMAL); SCAN/DIFF FINAL DIFF MANUAL
[2017-06-09] MEDS: DOCUSATE SODIUM 50 MG/SENNA 8.6 MG TAB PO SCH ×2 (10:35→21:00)
[2017-06-09] MEDS: AMIODARONE 200 MG TAB PO SCH (10:42)
[2017-06-09] MEDS: PRAVASTATIN SOD 10 MG TAB PO SCH (10:42)
[2017-06-09] MEDS: NYSTAT/DIPHENHY/LIDO MOUTHWASH (Adult) 120ML SWISH-SWAL SCH ×4 (10:43→21:25)
[2017-06-09] MEDS: methylPREDNISolone 4 MG TAB PO SCH (10:43)
[2017-06-09] MEDS: PANTOPRAZOLE SOD 40 MG DELAYED RELEASE TAB PO SCH ×2 (10:43→21:25)
[2017-06-09] MEDS: ACYCLOVIR 5% OINT 15 APPLIC/15 GM TUBE TOPICAL SCH ×2 (10:44→21:25)
[2017-06-09] MEDS: SODIUM CHLORIDE 0.9% FLUSH 10 ML FLUSH IV FLUSH SCH ×2 (10:45→21:26)
[2017-06-09] MEDS: PICC Daily Heparin 100 unit/mL Lock Flush IV FLUSH SCH (10:45)
[2017-06-09] MEDS: FILGRASTIM INJ 480 MCG in DEXTROSE 5% IN WATER INJ 25 ML IV SCH ×2 (12:59)
--- NOTE | 2017-06-09 14:05 | PD.ONC.PN ---
Subjective Subjective Remarks Tmax 100.2 at noon today. Rash extending to face now. patient notes no difference in sensation. still has no itching. denies any pain. resting comfortably today. wants to take a shower. Objective Data Date Time Temp Pulse Resp B/P Pulse Ox O2 Delivery O2 Flow Rate FiO2 06/09/17 12:44 100.2 79 20 127/59 95 06/09/17 08:47 99.0 89 19 117/67 95 06/09/17 04:00 97.1 76 16 111/56 94 06/09/17 00:00 96.6 109 16 95/61 94 06/08/17 20:00 97.2 110 16 92/54 94 06/08/17 15:50 96.1 103 20 101/53 94 06/08/17 14:43 98.5 71 18 99/46 93 06/09/17 06/09/17 06/09/17 06:59 14:59 22:59 Intake Total 300 ml Output Total 400 ml Balance -100 ml Result Diagram: 06/09/1761906/09/17 06 Laboratory Results Laboratory Tests Test 06/09/17 06:20 White Blood Count 1.4 TH/MM3 Red Blood Count 2.53 MIL/MM3 Hemoglobin 7.5 GM/DL Hematocrit 21.2 % Mean Corpuscular Volume 83.7 FL Mean Corpuscular Hemoglobin 29.6 PG Mean Corpuscular Hemoglobin 35.4 % Concent Red Cell Distribution Width 14.0 % Platelet Count 24 TH/MM3 Mean Platelet Volume 8.5 FL Neutrophils (%) (Auto) % Lymphocytes (%) (Auto) % Monocytes (%) (Auto) % Eosinophils (%) (Auto) % Basophils (%) (Auto) % Neutrophils # (Auto) TH/MM3 Lymphocytes # (Auto) TH/MM3 Monocytes # (Auto) TH/MM3 Eosinophils # (Auto) TH/MM3 Basophils # (Auto) TH/MM3 CBC Comment AUTO DIFF Differential Total Cells 100 Counted Neutrophils % (Manual) 4 % Lymphocytes % 94 % Monocytes % 2 % Neutrophils # (Manual) 0.1 TH/MM3 Differential Comment FINAL DIFF MANUAL Atypical Lymphocytes % Platelet Estimate LOW Platelet Morphology Comment NORMAL Red Cell Morphology Comment NORMAL Creatinine 0.93 MG/DL Estimat Glomerular Filtration 58 ML/MIN Rate Culture Results Microbiology Date/Time Procedure Status Source Growth 06/08/17 05:00 Aerobic Blood Culture - Preliminary Resulted Blood Peripheral NO GROWTH IN 1 DAY 06/08/17 05:00 Anaerobic Blood Culture - Preliminary Resulted Blood Peripheral NO GROWTH IN 1 DAY Administered Medications Medications (Trade) Dose Ordered Sig/José Route PRN Reason Start Time Stop Time Status Last Admin Dose Admin Sodium Chloride (NS Flush) 2 ml UNSCH PRN IV FLUSH FLUSH AFTER USING IV ACCESS 05/18/17 10:15 05/30/17 10:15 Sodium Chloride (NS Flush) 2 ml BID IV FLUSH 05/18/17 21:00 06/09/17 10:45 Ondansetron HCl (Zofran Inj) 4 mg Q6H PRN IVP NAUSEA OR VOMITING 05/18/17 10:15 06/08/17 04:56 Senna/Docusate Sodium (Rosalinda-Colace) 1 tab BID PO 05/18/17 21:00 06/09/17 10:35 Amiodarone HCl (Cordarone) 200 mg DAILY PO 05/19/17 09:00 06/09/17 10:42 Levothyroxine Sodium (Synthroid) 50 mcg DAILY@0600 PO 05/19/17 06:00 06/09/17 06:18 Pantoprazole Sodium (Protonix) 40 mg BID PO 05/18/17 21:00 06/09/17 10:43 Pravastatin Sodium (Pravachol) 10 mg DAILY PO 05/19/17 09:00 06/09/17 10:42 Diphenhydramine HCl (Benadryl) 25 mg Q4H PRN PO FOR BLOOD PRODUCTS 05/19/17 01:30 06/08/17 22:30 Acetaminophen (Tylenol) 650 mg Q4H PRN PO BLOOD PRODUCTS OR FEVER>100.4 05/19/17 01:30 06/08/17 11:28 Furosemide (Lasix) 20 mg BID@0918 PO 05/23/17 18:00 Hold 06/08/17 09:49 Patient Own Medication PT OWN MED: [facility]... DAILY@06 PO 05/26/17 06:00 06/09/17 06:25 Potassium Chloride (KCl) 20 meq BID PO 05/28/17 21:00 Hold 06/08/17 09:49 Mupirocin 1 applic 1 applic BID EACH NARE 05/30/17 15:00 Hold 06/05/17 21:44 Filgrastim/ Dextrose (Neupogen Inj/ D5W Inj) 26.6 ml @ 106.4 mls/ hr DAILY@14 IV 05/31/17 14:00 06/09/17 12:59 Acyclovir (Zovirax 5% Oint (15 Gm)) 1 applic BID TOPICAL 06/01/17 15:00 06/09/17 10:44 Multi-Ingredient Mouthwash/Gargle 5 ml 5 ml QID SWISH-SWAL 06/03/17 13:00 06/09/17 12:59 Aztreonam 1000 mg/ Sodium Chloride 100 ml @ 200 mls/hr Q8H IV 06/04/17 12:00 06/09/17 10:53 Vancomycin HCl/ Sodium Chloride (Vancomycin Inj/ NS 250 ml Inj) 250 ml @ 250 mls/hr Q24H IV 06/05/17 05:00 06/09/17 04:41 Valacyclovir HCl (Valtrex) 1,000 mg Q8HR PO 06/04/17 14:15 06/09/17 12:58 Heparin Sodium (Porcine) (Heparin Central Flush) 200 units DAILY IV FLUSH 06/06/17 09:00 06/09/17 10:45 Sodium Chloride (NS Flush) 5 ml UNSCH PRN IV FLUSH SEE PROTOCOL TABLE 06/06/17 07:00 06/07/17 22:56 Heparin Sodium (Porcine) (Heparin Central Flush) 200 units UNSCH PRN IV FLUSH SEE PROTOCOL TABLE 06/06/17 07:00 06/07/17 22:56 Sodium Chloride (NS Flush) 5 ml UNSCH PRN IV FLUSH NEEDED 06/06/17 07:00 06/07/17 04:59 Sodium Chloride (NS Flush) 5 ml UNSCH PRN IV FLUSH SEE PROTOCOL TABLE 06/06/17 07:00 06/07/17 04:58 Methylprednisolone 40 mg 40 mg DAILY PO 06/07/17 09:00 06/09/17 10:43 Sodium Chloride (NS 1000 ml Inj) 1,000 ml @ 84 mls/hr [id number] IV 06/08/17 14:00 06/09/17 00:01 Objective Remarks GENERAL: Pleasant female upright in bed in [facility] SKIN: Warm and dry. erythematous confluent rash on trunk, neck face and extremities. HEAD: Normocephalic. EYES: No injection or drainage. NECK: Supple, trachea midline. CARDIOVASCULAR: +S1/S2 RESPIRATORY: Breath sounds equal bilaterally. No accessory muscle use. GASTROINTESTINAL: Abdomen soft, non-tender, nondistended. EXTREMITIES: No cyanosis. right great toe with clean bandage. NEUROLOGICAL: awake and alert, normal speech. moving all extremities. Assessment/Plan Problem List: (1) Pancytopenia Status: Acute Plan: -- +aplastic anemia -- bone marrow biopsy results show aplastic anemia --05/21/17: ATG and cyclosporine Day 1, had some rigors during ATG which resolved with demerol. Promacta started --05/22/17: continue ATG and cyclosporine. continue Promacta --05/23/17: continue ATG and cyclosporine Day 3. continue Promacta. --05/24/17: last day of ATG and cyclosporine. Neupogen started --05/25: give 1 unit pRBC and 1 unit platelets --05/26: no transfusion today. --05/27: counts stable. WBC improving. neutrophils remain 0 --05/28: Transfuse 1 unit Platelets for count of 18k. --05/29: Counts stable. No transfusion. --05/30: platelet count falling. no transfusion. solu-medrol decreased to 20mg --05/31: give one unit platelets --06/01: give one unit PRBC, continue antibiotic support, Promacta per protocol, cyclosporine and methylprednisolone No sign of serum sickness. --06/02: Erythema R great toe despite broad spectrum Abx. Podiatry consulted. Platelet transfusion delayed until podiatry procedure. Promacta/cyclosporine continue. --06/03: will give 1 unit pRBC. continue abx. --06/04: no transfusion. stop Cefepime, start Azactam. --06.05: give 1 unit blood and platelets. --06/06: no transfusion. increase steroids for serum sickness rash. --06/07: 1 unit pRBC today. --06/08: 1 unit platelets today. --06/09: continue solu-medrol for serum sickness rash. give 1 unit pRBC (2) Neutropenic fever Status: Acute Plan: --BC 06/08: no growth --BC 06/04 no growth --BC, 05/30, no growth --wound culture from foot shows no growth. --on Valtrex and Vancomycin, Azactam. --has cellulitis of right ear and herpetic appearing lip lesion, right great toe infection. (3) serum sickness rash Status: Acute Plan: --on solu-medrol 40mg PO daily --d/t ATG/cyclosporine tx Assessment 82-year-old female with anemia brought in for immunosuppressive treatment Plan 1. continue solu-medrol 2. give 1 unit pRBC today 3. continue antibiotics. 4. continue IVF today. watch blood pressure Attending Statement The exam, history, and the medical decision-making described in the above note were completed with the assistance of the mid-level provider. I reviewed and agree with the findings presented. I attest that I had a [id number] encounter with the patient on the same day, and personally performed and documented my assessment and findings in the medical record. Pt seen and examined. Noted serum sickness rash, extending to arms and face and upper thigh. Clinically feels tired, bp better but noted fevers. Abx on board. Hopeful for bone marrow recovery as noted several days findings of monocytes. Cecilia Hughes Jun 09, 2017 14:04 Luna Marie MD Jun 09, 2017 16:01
--- NOTE | 2017-06-09 15:35 | HHI.PR ---
Subjective Subjective Remarks Awake and responsive, mild itching last pm resting in bed Low-grade fever 100.2 1 unit PRBS today per ONC. bowel regimin, No BM X 3rd day (Fernanda Monroy) Review of Systems Constitutional Constitutional: Fatigue, Weakness Constitutional Remarks 10 point ROS done positives noted, fever (Fernanda Monroy) Ears and Nose Ears and Nose Remarks Generalized rash moving up on face (Fernanda Monroy) Throat Throat Remarks small sore on rt. lower lip (Fernanda Monroy) Pulmonary Respiratory: Shortness of Breath (occasional low volumes) (Fernanda Monroy) GI/Abdomen GI/Abdominal Exam: Constipation (None in 3rd day, encouraged laxative) GI/Abdomen Remarks Encourage by mouth fluids (Fernanda Monroy) Musculoskeletal MS: Weakness (Fernanda Monroy) Integumentary Skin Remarks rt. great toe (Fernanda Monroy) Psychiatric Psychiatric: Normal Mood (Fernanda Monroy) Vitals/Results Intake & Output 06/08/17 06/08/17 06/09/17 15:00 23:00 07:00 Intake Total 666 ml 360 ml 300 ml Output Total 500 ml 150 ml 400 ml Balance 166 ml 210 ml -100 ml Intake Oral 300 ml 360 ml 300 ml IV Total 366 ml Output Urine Total 500 ml 150 ml 400 ml # Bowel Movements 0 0 0 Vital Signs Vital Signs Date Time Temp Pulse Resp B/P Pulse Ox O2 Delivery O2 Flow Rate FiO2 06/09/17 12:44 100.2 79 20 127/59 95 06/09/17 08:47 99.0 89 19 117/67 95 06/09/17 04:00 97.1 76 16 111/56 94 06/09/17 00:00 96.6 109 16 95/61 94 06/08/17 20:00 97.2 110 16 92/54 94 06/08/17 15:50 96.1 103 20 101/53 94 (Fernanda Monroy) CBC/BMP: 06/09/17 0620 06/09/17 0620 Lab Results Laboratory Tests Test 06/09/17 06/09/17 06:20 13:00 White Blood Count 1.4 TH/MM3 Red Blood Count 2.53 MIL/MM3 Hemoglobin 7.5 GM/DL Hematocrit 21.2 % Mean Corpuscular Volume 83.7 FL Mean Corpuscular Hemoglobin 29.6 PG Mean Corpuscular Hemoglobin 35.4 % Concent Red Cell Distribution Width 14.0 % Platelet Count 24 TH/MM3 Mean Platelet Volume 8.5 FL Neutrophils (%) (Auto) % Lymphocytes (%) (Auto) % Monocytes (%) (Auto) % Eosinophils (%) (Auto) % Basophils (%) (Auto) % Neutrophils # (Auto) TH/MM3 Lymphocytes # (Auto) TH/MM3 Monocytes # (Auto) TH/MM3 Eosinophils # (Auto) TH/MM3 Basophils # (Auto) TH/MM3 CBC Comment AUTO DIFF Differential Total Cells 100 Counted Neutrophils % (Manual) 4 % Lymphocytes % 94 % Monocytes % 2 % Neutrophils # (Manual) 0.1 TH/MM3 Differential Comment FINAL DIFF MANUAL Atypical Lymphocytes % Platelet Estimate LOW Platelet Morphology Comment NORMAL Red Cell Morphology Comment NORMAL Creatinine 0.93 MG/DL Estimat Glomerular Filtration 58 ML/MIN Rate Blood Type AB NEGATIVE Antibody Screen NEGATIVE Crossmatch Irradiated/Leukocyte-Reduced RBC Blood Bank Comment Imaging Remarks Last Impressions Chest X-Ray 05/31/17 0600 Signed Impressions: Service Date/Time: Wednesday, May 31, 2017 05:54 - CONCLUSION: 1. Chronic interstitial lung disease. 2. No new focal pulmonary infiltrates are demonstrated. Maurice Jean Baptiste MD Bone Biopsy CT 05/18/17 1456 Signed Impressions: Service Date/Time: Thursday, May 18, 2017 15:21 - CONCLUSION: 1. Uncomplicated CT guided bone marrow aspirate. 2. Uncomplicated CT guided bone marrow biopsy. Robert Cruz MD FACR PICC Line Insertion 05/18/17 0000 Signed Impressions: Service Date/Time: Thursday, May 18, 2017 13:31 - CONCLUSION: 1. Uncomplicated central venous Power PICC line placement. 2. The PICC line can be used immediately. Meliton Lerma MD Current Medications Administered Medications Medications (Trade) Dose Ordered Sig/José Route PRN Reason Start Time Stop Time Status Last Admin Dose Admin Sodium Chloride (NS Flush) 2 ml UNSCH PRN IV FLUSH FLUSH AFTER USING IV ACCESS 05/18/17 10:15 05/30/17 10:15 Sodium Chloride (NS Flush) 2 ml BID IV FLUSH 05/18/17 21:00 06/09/17 10:45 Ondansetron HCl (Zofran Inj) 4 mg Q6H PRN IVP NAUSEA OR VOMITING 05/18/17 10:15 06/08/17 04:56 Senna/Docusate Sodium (Rosalinda-Colace) 1 tab BID PO 05/18/17 21:00 06/09/17 10:35 Amiodarone HCl (Cordarone) 200 mg DAILY PO 05/19/17 09:00 06/09/17 10:42 Levothyroxine Sodium (Synthroid) 50 mcg DAILY@0600 PO 05/19/17 06:00 06/09/17 06:18 Pantoprazole Sodium (Protonix) 40 mg BID PO 05/18/17 21:00 06/09/17 10:43 Pravastatin Sodium (Pravachol) 10 mg DAILY PO 05/19/17 09:00 06/09/17 10:42 Diphenhydramine HCl (Benadryl) 25 mg Q4H PRN PO FOR BLOOD PRODUCTS 05/19/17 01:30 06/08/17 22:30 Acetaminophen (Tylenol) 650 mg Q4H PRN PO BLOOD PRODUCTS OR FEVER>100.4 05/19/17 01:30 06/08/17 11:28 Furosemide (Lasix) 20 mg BID@09,18 PO 05/23/17 18:00 Hold 06/08/17 09:49 Patient Own Medication PT OWN MED: [facility]... DAILY@06 PO 05/26/17 06:00 06/09/17 06:25 Potassium Chloride (KCl) 20 meq BID PO 05/28/17 21:00 Hold 06/08/17 09:49 Mupirocin 1 applic 1 applic BID EACH NARE 05/30/17 15:00 Hold 06/05/17 21:44 Filgrastim/ Dextrose (Neupogen Inj/ D5W Inj) 26.6 ml @ 106.4 mls/ hr DAILY@14 IV 05/31/17 14:00 06/09/17 12:59 Acyclovir (Zovirax 5% Oint (15 Gm)) 1 applic BID TOPICAL 06/01/17 15:00 06/09/17 10:44 Multi-Ingredient Mouthwash/Gargle 5 ml 5 ml QID SWISH-SWAL 06/03/17 13:00 06/09/17 12:59 Aztreonam 1000 mg/ Sodium Chloride 100 ml @ 200 mls/hr Q8H IV 06/04/17 12:00 06/09/17 10:53 Vancomycin HCl/ Sodium Chloride (Vancomycin Inj/ NS 250 ml Inj) 250 ml @ 250 mls/hr Q24H IV 06/05/17 05:00 06/09/17 04:41 Valacyclovir HCl (Valtrex) 1,000 mg Q8HR PO 06/04/17 14:15 06/09/17 12:58 Heparin Sodium (Porcine) (Heparin Central Flush) 200 units DAILY IV FLUSH 06/06/17 09:00 06/09/17 10:45 Sodium Chloride (NS Flush) 5 ml UNSCH PRN IV FLUSH SEE PROTOCOL TABLE 06/06/17 07:00 06/07/17 22:56 Heparin Sodium (Porcine) (Heparin Central Flush) 200 units UNSCH PRN IV FLUSH SEE PROTOCOL TABLE 06/06/17 07:00 06/07/17 22:56 Sodium Chloride (NS Flush) 5 ml UNSCH PRN IV FLUSH NEEDED 06/06/17 07:00 06/07/17 04:59 Sodium Chloride (NS Flush) 5 ml UNSCH PRN IV FLUSH SEE PROTOCOL TABLE 06/06/17 07:00 06/07/17 04:58 Methylprednisolone 40 mg 40 mg DAILY PO 06/07/17 09:00 06/09/17 10:43 Sodium Chloride (NS 1000 ml Inj) 1,000 ml @ 84 mls/hr [id number] IV 06/08/17 14:00 06/09/17 00:01 (Fernanda Monroy) Physical Exam General General Appearance: Well Developed, Comfortable (doesnt complain), Pale ( Fernanda Monroy) Eyes Eye Exam: Pupils Reactive (Fernanda Monroy) Ears & Nose Ears & Nose Exam: Nasal Mucosa Tula (Fernanda Monroy) Throat Throat Exam: Oral Mucosa Tula & Moist (Fernanda Monroy) Neck Neck Exam: Trachea Midline (Fernanda MonroyP) Pulmonary Resp Exam: Clear Bilaterally, Breath Sounds Equal, No Distress (Fernanda MonroyP) Cardiology CV Exam: Good Perfusion (Fernanda MonroyP) Gastrointestinal/Abdomen GI Exam: Soft, Non-Tender, Bowel Sounds Present, Non-Distended (Fernanda MonroyP) Musculoskeletal MS Exam: Normal Tone (Fernanda MonroyP) Integumentary Skin Exam: Warm, Dry, Ulcer(s) (top lip with ulcerated area ) (Fernanda MonroyP) Extremeties Extremities Exam: No Edema, Pedal Pulses Palpable Extremeties Remarks Great toe right foot wound, previous ingrown toenail, edema (Fernanda MonroyP) Neurologic Neuro Exam: Alert, Awake, Oriented, Speech Clear, 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, Office Runner Equal, 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 (Fernanda MonroyP) Psychiatric Psych Exam: Appropriate Responses (Fernanda Monroy) PUD Prophylasis PUD Prophylaxis: Protonix (Fernanda Monroy) Assessment/Plan Assessment/Plan Assessment/Plan Right hallux pain/ecchymosis/swelling, status post bedside procedure 11/20/2016 neutropenia 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, secondary to herpes simplex type I, improved Right external ear cellulitis, Leukopenia, Symptomatic anemia, Improved after transfusion Severe profound symptomatic thrombocytopenia, Uncontrolled aplastic anemia Acellular bone marrow per biopsy report Status post bone marrow biopsy 05/18/17 Recent diagnosis of atrial fibrillation Recent diagnosis of gastric erosions Maculopapular rash Management vital signs reviewed, fever trending [id number], HR labile, 79-109 labs reviewed, WBC 1.4 platelets 24, 1 unit PRBS today given, NA 135, now IVF, anemia 7.5 trended down today Podiatry consult and appreciate input for right great toe, bulky dressing clean dry and intact, no acute bleeding noted wound care,dressing changed daily /prn. positive staph culture on 20 No evidence of gout, in rt. great toe wound appreciate ID input cultures, no growth blood cultures, Mupirocin cream for both nostrils Acyclovir dc, changed to Valtrex Antibiotic therapy emperic , fever trending down Rash, generalized on trunk, mild increase to face, not itching today, skin dry steroids begun HTN, medical mangement, oncology following, appreciate input, aplastic anemia 1 unit PRBS, hgb down today 7.5 Follow CBC No DC pending, D/W RN D/W Dr. Borjas, seen on her behalf D/W pt (Fernanda Monroy) Assessment/Plan patient seen and examined agree with above assessment and plan fever improving continue supportive care plan to transfuse PRBCs today discussed with patient and Fernanda MIJARES (Tayla Borjas MD) Fernanda Monroy Jun 09, 2017 15:34 Tayla Borjas MD Jun 09, 2017 16:35
[2017-06-09] MEDS ORDERED: AQUAPHOR OINT 50 APPLIC/50 GM TUBE TOPICAL ONE (16:15)
[2017-06-09] MEDS: diphenhydrAMINE HCL 25 MG CAP PO PRN (16:34)
[2017-06-09] MEDS: ACETAMINOPHEN 325 MG TAB PO PRN (16:34)
[2017-06-10] VITALS (8 sets, daily range): BP systolic 97–141; BP diastolic 60–75; PULSE 92–125; RESP 12–18; TEMP 97–98.7; O2SAT 93–98
[2017-06-10] MEDS: diphenhydrAMINE HCL 25 MG CAP PO PRN (00:54)
[2017-06-10] MEDS: SODIUM CHLOR 0.9% 1000 ML INJ 1,000 ML IV SCH ×2 (01:45→10:36)
[2017-06-10] MEDS: AZTREONAM INJ 1,000 MG in SODIUM CHLORIDE 0.9% INJ 100 ML IV SCH ×3 (04:13→19:43)
[2017-06-10] MEDS: VANCOMYCIN 1,000 MG/NS 250 ML IV SCH ×2 (05:45)
[2017-06-10] MEDS: PROMACTA 50 MG PO SCH (05:46)
[2017-06-10] MEDS: CLOTRIMAZOLE 10 MG TROCHE BUCCAL SCH ×5 (05:46→22:15)
[2017-06-10] MEDS: LEVOTHYROXINE SODIUM 50 MCG TAB PO SCH (05:47)
[2017-06-10] MEDS: valACYclovir HCL 500 MG TAB PO SCH ×3 (05:59→22:15)
[2017-06-10 07:55] LABS: HEMATOCRIT 24.3 % (35.0-46.0); MEAN CELL VOLUME 84.2 FL (80.0-100.0); MEAN CORPUSCULAR HEMOGLOBIN 29.2 PG (27.0-34.0); MEAN CORPUSCULAR HGB CONC 34.7 % (32.0-36.0); RED BLOOD COUNT 2.89 MIL/MM3 (4.00-5.30); RED CELL DISTRIBUTION WIDTH 14.2 % (11.6-17.2); WHITE BLOOD COUNT 1.9 TH/MM3 (4.0-11.0)
[2017-06-10 08:05] LABS: HEMO FLAGS AUTO DIFF
[2017-06-10 08:10] LABS: PLATELET COUNT 16 TH/MM3 (150-450)
[2017-06-10] MEDS: DOCUSATE SODIUM 50 MG/SENNA 8.6 MG TAB PO SCH ×2 (09:00→19:46)
[2017-06-10 09:06] LABS: BANDS 1 % (0-6); NEUTROPHIL # MANUAL DIFF 0.1 TH/MM3 (1.8-7.7); PLATELET MORPHOLOGY NORMAL (NORMAL); POLYS (SEG NEUTROPHILS) 2 % (16-70); WBC DIFF SAMPLE 100
[2017-06-10 09:07] LABS: SCAN/DIFF FINAL DIFF MANUAL
[2017-06-10 09:08] LABS: PLATELET ESTIMATE SMEAR RARE (NORMAL)
[2017-06-10] MEDS: methylPREDNISolone 4 MG TAB PO SCH (10:26)
[2017-06-10] MEDS: PICC Daily Heparin 100 unit/mL Lock Flush IV FLUSH SCH (10:33)
[2017-06-10] MEDS: PANTOPRAZOLE SOD 40 MG DELAYED RELEASE TAB PO SCH ×2 (10:33→19:47)
[2017-06-10] MEDS: SODIUM CHLORIDE 0.9% FLUSH 10 ML FLUSH IV FLUSH SCH ×2 (10:33→19:48)
[2017-06-10] MEDS: AMIODARONE 200 MG TAB PO SCH (10:33)
[2017-06-10] MEDS: NYSTAT/DIPHENHY/LIDO MOUTHWASH (Adult) 120ML SWISH-SWAL SCH ×4 (10:34→19:47)
[2017-06-10] MEDS: PRAVASTATIN SOD 10 MG TAB PO SCH (10:34)
[2017-06-10] MEDS: ACYCLOVIR 5% OINT 15 APPLIC/15 GM TUBE TOPICAL SCH ×2 (10:36→19:48)
--- NOTE | 2017-06-10 13:20 | PD.ONC.PN ---
Subjective Subjective Remarks Afebrile overnight. Patient resting in bed. Rash persistent. Scab on lip flaking off. No bleeding. Objective Data Date Time Temp Pulse Resp B/P Pulse Ox O2 Delivery O2 Flow Rate FiO2 06/10/17 11:59 98.7 125 12 141/67 97 06/10/17 08:00 98.2 109 18 125/68 95 06/10/17 04:00 97.0 97 16 121/75 95 06/10/17 00:00 97.5 103 16 115/60 94 06/09/17 20:00 97.9 66 16 114/56 94 06/09/17 17:30 98.7 69 18 108/66 95 06/09/17 17:15 99.6 68 18 110/55 93 06/09/17 16:24 99.0 78 20 121/59 95 06/10/17 06/10/17 06/10/17 07:00 15:00 23:00 Intake Total 250 ml Balance 250 ml Result Diagram: 06/10/17 0550 06/09/17 0620 Laboratory Results Laboratory Tests Test 06/10/17 05:50 White Blood Count 1.9 TH/MM3 Red Blood Count 2.89 MIL/MM3 Hemoglobin 8.4 GM/DL Hematocrit 24.3 % Mean Corpuscular Volume 84.2 FL Mean Corpuscular Hemoglobin 29.2 PG Mean Corpuscular Hemoglobin 34.7 % Concent Red Cell Distribution Width 14.2 % Platelet Count 16 TH/MM3 Mean Platelet Volume 8.0 FL Neutrophils (%) (Auto) % Lymphocytes (%) (Auto) % Monocytes (%) (Auto) % Eosinophils (%) (Auto) % Basophils (%) (Auto) % Neutrophils # (Auto) TH/MM3 Lymphocytes # (Auto) TH/MM3 Monocytes # (Auto) TH/MM3 Eosinophils # (Auto) TH/MM3 Basophils # (Auto) TH/MM3 CBC Comment AUTO DIFF Differential Total Cells 100 Counted Neutrophils % (Manual) 2 % Band Neutrophils % 1 % Lymphocytes % 96 % Monocytes % 1 % Neutrophils # (Manual) 0.1 TH/MM3 Differential Comment FINAL DIFF MANUAL Platelet Estimate RARE Platelet Morphology Comment NORMAL Red Cell Morphology Comment NORMAL Culture Results Microbiology Date/Time Procedure Status Source Growth 06/08/17 05:00 Aerobic Blood Culture - Preliminary Resulted Blood Peripheral NO GROWTH IN 2 DAYS 06/08/17 05:00 Anaerobic Blood Culture - Preliminary Resulted Blood Peripheral NO GROWTH IN 2 DAYS Administered Medications Medications (Trade) Dose Ordered Sig/José Route PRN Reason Start Time Stop Time Status Last Admin Dose Admin Sodium Chloride (NS Flush) 2 ml UNSCH PRN IV FLUSH FLUSH AFTER USING IV ACCESS 05/18/17 10:15 05/30/17 10:15 Sodium Chloride (NS Flush) 2 ml BID IV FLUSH 05/18/17 21:00 06/10/17 10:33 Ondansetron HCl (Zofran Inj) 4 mg Q6H PRN IVP NAUSEA OR VOMITING 05/18/17 10:15 06/08/17 04:56 Senna/Docusate Sodium (Rosalinda-Colace) 1 tab BID PO 05/18/17 21:00 06/10/17 09:00 Amiodarone HCl (Cordarone) 200 mg DAILY PO 05/19/17 09:00 06/10/17 10:33 Levothyroxine Sodium (Synthroid) 50 mcg DAILY@0600 PO 05/19/17 06:00 06/10/17 05:47 Pantoprazole Sodium (Protonix) 40 mg BID PO 05/18/17 21:00 06/10/17 10:33 Pravastatin Sodium (Pravachol) 10 mg DAILY PO 05/19/17 09:00 06/10/17 10:34 Diphenhydramine HCl (Benadryl) 25 mg Q4H PRN PO FOR BLOOD PRODUCTS 05/19/17 01:30 06/10/17 00:54 Acetaminophen (Tylenol) 650 mg Q4H PRN PO BLOOD PRODUCTS OR FEVER>100.4 05/19/17 01:30 06/09/17 16:34 Furosemide (Lasix) 20 mg BID@18 PO 05/23/17 18:00 Hold 06/08/17 09:49 Patient Own Medication PT OWN MED: Prom[facility]... DAILY@06 PO 05/26/17 06:00 06/10/17 05:46 Potassium Chloride (KCl) 20 meq BID PO 05/28/17 21:00 Hold 06/08/17 09:49 Mupirocin 1 applic 1 applic BID EACH NARE 05/30/17 15:00 Hold 06/05/17 21:44 Filgrastim/ Dextrose (Neupogen Inj/ D5W Inj) 26.6 ml @ 106.4 mls/ hr DAILY@14 IV 05/31/17 14:00 06/09/17 12:59 Acyclovir (Zovirax 5% Oint (15 Gm)) 1 applic BID TOPICAL 06/01/17 15:00 06/10/17 10:36 Multi-Ingredient Mouthwash/Gargle 5 ml 5 ml QID SWISH-SWAL 06/03/17 13:00 06/10/17 12:10 Aztreonam 1000 mg/ Sodium Chloride 100 ml @ 200 mls/hr Q8H IV 06/04/17 12:00 06/10/17 12:09 Vancomycin HCl/ Sodium Chloride (Vancomycin Inj/ NS 250 ml Inj) 250 ml @ 250 mls/hr Q24H IV 06/05/17 05:00 06/10/17 05:45 Valacyclovir HCl (Valtrex) 1,000 mg Q8HR PO 06/04/17 14:15 06/10/17 05:59 Heparin Sodium (Porcine) (Heparin Central Flush) 200 units DAILY IV FLUSH 06/06/17 09:00 06/10/17 10:33 Sodium Chloride (NS Flush) 5 ml UNSCH PRN IV FLUSH SEE PROTOCOL TABLE 06/06/17 07:00 06/07/17 22:56 Heparin Sodium (Porcine) (Heparin Central Flush) 200 units UNSCH PRN IV FLUSH SEE PROTOCOL TABLE 06/06/17 07:00 06/07/17 22:56 Sodium Chloride (NS Flush) 5 ml UNSCH PRN IV FLUSH NEEDED 06/06/17 07:00 06/07/17 04:59 Sodium Chloride (NS Flush) 5 ml UNSCH PRN IV FLUSH SEE PROTOCOL TABLE 06/06/17 07:00 06/07/17 04:58 Methylprednisolone (Medrol) 40 mg DAILY PO 06/07/17 09:00 06/10/17 10:26 Objective Remarks GENERAL: chronically ill female upright in bed. 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 confluent red rash on trunk, neck face and extremities. HEAD: Normocephalic. EYES: No injection or drainage. NECK: Supple, trachea midline. CARDIOVASCULAR: IRR RESPIRATORY: Breath sounds equal bilaterally. No accessory muscle use. GASTROINTESTINAL: Abdomen soft, non-tender, nondistended. EXTREMITIES: No cyanosis. right great toe with clean bandage. NEUROLOGICAL: awake and alert, normal speech. moving all extremities. Assessment/Plan Problem List: (1) Pancytopenia Status: Acute Plan: -- +aplastic anemia -- bone marrow biopsy results show aplastic anemia --05/21/17: ATG and cyclosporine Day 1, had some rigors during ATG which resolved with demerol. Promacta started --05/22/17: continue ATG and cyclosporine. continue Promacta --05/23/17: continue ATG and cyclosporine Day 3. continue Promacta. --05/24/17: last day of ATG and cyclosporine. Neupogen started --05/25: give 1 unit pRBC and 1 unit platelets --05/26: no transfusion today. --05/27: counts stable. WBC improving. neutrophils remain 0 --05/28: Transfuse 1 unit Platelets for count of 18k. --05/29: Counts stable. No transfusion. --05/30: platelet count falling. no transfusion. solu-medrol decreased to 20mg --05/31: give one unit platelets --06/01: give one unit PRBC, continue antibiotic support, Promacta per protocol, cyclosporine and methylprednisolone No sign of serum sickness. --06/02: Erythema R great toe despite broad spectrum Abx. Podiatry consulted. Platelet transfusion delayed until podiatry procedure. Promacta/cyclosporine continue. --06/03: will give 1 unit pRBC. continue abx. --06/04: no transfusion. stop Cefepime, start Azactam. --06.05: give 1 unit blood and platelets. --06/06: no transfusion. increase steroids for serum sickness rash. --06/07: 1 unit pRBC today. --06/08: 1 unit platelets today. --06/09: continue solu-medrol for serum sickness rash. give 1 unit pRBC --06/10. no transfusion today. (2) Neutropenic fever Status: Acute Plan: --BC 06/08: no growth --BC 06/04 no growth --BC, 05/30, no growth --wound culture from foot shows no growth. --on Valtrex and Vancomycin, Azactam. --has cellulitis of right ear and herpetic appearing lip lesion, right great toe infection. (3) serum sickness rash Status: Acute Plan: --on solu-medrol 40mg PO daily --d/t ATG/cyclosporine tx Assessment 82-year-old female with anemia brought in for immunosuppressive treatment Plan 1. continue solu-medrol 2. no transfusion today 3. continue antibiotics. 4. stop IVF 5. check EKG Attending Statement The exam, history, and the medical decision-making described in the above note were completed with the assistance of the mid-level provider. I reviewed and agree with the findings presented. I attest that I had a [id number] encounter with the patient on the same day, and personally performed and documented my assessment and findings in the medical record. Pt seen and examined with daughter. Still pancytopenic but no transfusion. No bleeding. Continue w/ serum sickness rash more confluent and flat, discuss use aquaphor to help the skin. Shower with assistance. Pt wants to feel human again. Encouraged by monocytosis and neutrophils/bands. Continue Promacta, Rx will be sent to out pt pharmacy, we will see if daughter can case picker. Cecilia Hughes Jun 10, 2017 13:19 Luna Marie MD Jun 10, 2017 14:38
[2017-06-10] MEDS ORDERED: DIGOXIN 0.125 MG TAB PO SCH (13:45)
--- NOTE | 2017-06-10 13:59 | HHI.PR ---
Subjective Subjective Remarks Awake resting in bed Taking by mouth fluids well Rash noted on trunk ,neck, face, and extremities, by mouth steroids started Tachycardia, a been placed on telemetry (Fernanda Monroy) Review of Systems Constitutional Constitutional: Fatigue, Weakness Constitutional Remarks 10 point ROS done positives noted, fever (Fernanda Monroy) Ears and Nose Ears and Nose Remarks Generalized rash moving up on face (Fernanda Monroy) Throat Throat Remarks Scabbed one third of lower lip sore, dry (Fenranda Monroy) Pulmonary Respiratory: Shortness of Breath (, exertional) (Fernanda Monroy) GI/Abdomen GI/Abdominal Exam: Constipation (resolved, VM yesterday) GI/Abdomen Remarks Encourage by mouth fluids (Fernanda Monroy) Musculoskeletal MS: Weakness (Fernanda Monroy) Integumentary Skin Remarks rt. great toe (Fernanda Monroy) Psychiatric Psychiatric: Normal Mood (Fernanda Monroy) Vitals/Results Intake & Output 06/09/17 06/09/17 06/10/17 15:00 23:00 07:00 Intake Total 700 ml 1090 ml 250 ml Output Total 700 ml Balance 0 ml 1090 ml 250 ml Intake Oral 700 ml 250 ml 250 ml IV Total 840 ml Output Urine Total 700 ml # Voids 1 2 # Bowel Movements 1 0 Vital Signs Vital Signs Date Time Temp Pulse Resp B/P Pulse Ox O2 Delivery O2 Flow Rate FiO2 06/10/17 11:59 98.7 125 12 141/67 97 06/10/17 08:00 98.2 109 18 125/68 95 06/10/17 04:00 97.0 97 16 121/75 95 06/10/17 00:00 97.5 103 16 115/60 94 06/09/17 20:00 97.9 66 16 114/56 94 06/09/17 17:30 98.7 69 18 108/66 95 06/09/17 17:15 99.6 68 18 110/55 93 06/09/17 16:24 99.0 78 20 121/59 95 (Fernanda Monroy) CBC/BMP: 7/28/17 0550 06/09/17 0620 Lab Results Laboratory Tests Test 06/10/17 05:50 White Blood Count 1.9 TH/MM3 Red Blood Count 2.89 MIL/MM3 Hemoglobin 8.4 GM/DL Hematocrit 24.3 % Mean Corpuscular Volume 84.2 FL Mean Corpuscular Hemoglobin 29.2 PG Mean Corpuscular Hemoglobin 34.7 % Concent Red Cell Distribution Width 14.2 % Platelet Count 16 TH/MM3 Mean Platelet Volume 8.0 FL Neutrophils (%) (Auto) % Lymphocytes (%) (Auto) % Monocytes (%) (Auto) % Eosinophils (%) (Auto) % Basophils (%) (Auto) % Neutrophils # (Auto) TH/MM3 Lymphocytes # (Auto) TH/MM3 Monocytes # (Auto) TH/MM3 Eosinophils # (Auto) TH/MM3 Basophils # (Auto) TH/MM3 CBC Comment AUTO DIFF Differential Total Cells 100 Counted Neutrophils % (Manual) 2 % Band Neutrophils % 1 % Lymphocytes % 96 % Monocytes % 1 % Neutrophils # (Manual) 0.1 TH/MM3 Differential Comment FINAL DIFF MANUAL Platelet Estimate RARE Platelet Morphology Comment NORMAL Red Cell Morphology Comment NORMAL Current Medications Administered Medications Medications (Trade) Dose Ordered Sig/José Route PRN Reason Start Time Stop Time Status Last Admin Dose Admin Sodium Chloride (NS Flush) 2 ml UNSCH PRN IV FLUSH FLUSH AFTER USING IV ACCESS 05/18/17 10:15 05/30/17 10:15 Sodium Chloride (NS Flush) 2 ml BID IV FLUSH 05/18/17 21:00 06/10/17 10:33 Ondansetron HCl (Zofran Inj) 4 mg Q6H PRN IVP NAUSEA OR VOMITING 05/18/17 10:15 06/08/17 04:56 Senna/Docusate Sodium (Rosalinda-Colace) 1 tab BID PO 05/18/17 21:00 06/10/17 09:00 Amiodarone HCl (Cordarone) 200 mg DAILY PO 05/19/17 09:00 06/10/17 10:33 Levothyroxine Sodium (Synthroid) 50 mcg DAILY@0600 PO 05/19/17 06:00 06/10/17 05:47 Pantoprazole Sodium (Protonix) 40 mg BID PO 05/18/17 21:00 06/10/17 10:33 Pravastatin Sodium (Pravachol) 10 mg DAILY PO 05/19/17 09:00 06/10/17 10:34 Diphenhydramine HCl (Benadryl) 25 mg Q4H PRN PO FOR BLOOD PRODUCTS 05/19/17 01:30 06/10/17 00:54 Acetaminophen (Tylenol) 650 mg Q4H PRN PO BLOOD PRODUCTS OR FEVER>100.4 05/19/17 01:30 06/09/17 16:34 Furosemide (Lasix) 20 mg BID@09,18 PO 05/23/17 18:00 Hold 06/08/17 09:49 Patient Own Medication PT OWN MED: Prom[facility]... DAILY@06 PO 05/26/17 06:00 06/10/17 05:46 Potassium Chloride (KCl) 20 meq BID PO 05/28/17 21:00 Hold 06/08/17 09:49 Mupirocin 1 applic 1 applic BID EACH NARE 05/30/17 15:00 Hold 06/05/17 21:44 Filgrastim/ Dextrose (Neupogen Inj/ D5W Inj) 26.6 ml @ 106.4 mls/ hr DAILY@14 IV 05/31/17 14:00 06/09/17 12:59 Acyclovir (Zovirax 5% Oint (15 Gm)) 1 applic BID TOPICAL 06/01/17 15:00 06/10/17 10:36 Multi-Ingredient Mouthwash/Gargle 5 ml 5 ml QID SWISH-SWAL 06/03/17 13:00 06/10/17 12:10 Aztreonam 1000 mg/ Sodium Chloride 100 ml @ 200 mls/hr Q8H IV 06/04/17 12:00 06/10/17 12:09 Vancomycin HCl/ Sodium Chloride (Vancomycin Inj/ NS 250 ml Inj) 250 ml @ 250 mls/hr Q24H IV 06/05/17 05:00 06/10/17 05:45 Valacyclovir HCl (Valtrex) 1,000 mg Q8HR PO 06/04/17 14:15 06/10/17 05:59 Heparin Sodium (Porcine) (Heparin Central Flush) 200 units DAILY IV FLUSH 06/06/17 09:00 06/10/17 10:33 Sodium Chloride (NS Flush) 5 ml UNSCH PRN IV FLUSH SEE PROTOCOL TABLE 06/06/17 07:00 06/07/17 22:56 Heparin Sodium (Porcine) (Heparin Central Flush) 200 units UNSCH PRN IV FLUSH SEE PROTOCOL TABLE 06/06/17 07:00 06/07/17 22:56 Sodium Chloride (NS Flush) 5 ml UNSCH PRN IV FLUSH NEEDED 06/06/17 07:00 06/07/17 04:59 Sodium Chloride (NS Flush) 5 ml UNSCH PRN IV FLUSH SEE PROTOCOL TABLE 06/06/17 07:00 06/07/17 04:58 Methylprednisolone (Medrol) 40 mg DAILY PO 06/07/17 09:00 06/10/17 10:26 (Fernanda MonroyP) Physical Exam General General Appearance: Well Developed, Comfortable (doesnt complain), Pale Appearance Remarks Macular rash (Fernanda Monroy [employer]JUNCT PS[employer]CHOLOGY INSTRUCTOR) Eyes Eye Exam: Pupils Reactive (Fernanda Monroy [employer]JUNCT PSYCHOLOGY INSTRUCTOR) Ears & Nose Ears & Nose Exam: Nasal Mucosa [place] (Fernanda Monroy ADJUNCT PSYCHOLOGY INSTRUCTOR) Throat Throat Exam: Oral Mucosa [place] & Moist (Fernanda Monroy ADJUNCT PSYCHOLOGY INSTRUCTOR) Neck Neck Exam: Trachea Midline (Fernanda MonroyP) Pulmonary Resp Exam: Clear Bilaterally, Breath Sounds Equal, No Distress (Fernanda Monroy. ADJUNCT PSYCHOLOGY INSTRUCTOR) Cardiology CV Exam: Good Perfusion (placed on telemetry today), Tachycardia (Fernanda Monroy. ADJUNCT PSYCHOLOGY INSTRUCTOR) Gastrointestinal/Abdomen GI Exam: Soft, Non-Tender, Bowel Sounds Present, Non-Distended (Fernanda Monroy. ADJUNCT PSYCHOLOGY INSTRUCTOR) Musculoskeletal MS Exam: Normal Tone (Fernanda Monroy. ADJUNCT PSYCHOLOGY INSTRUCTOR) Integumentary Skin Exam: Warm, Dry, Ulcer(s) (top lip with ulcerated area ) (Fernanda Monroy. ADJUNCT PSYCHOLOGY INSTRUCTOR) Extremeties Extremities Exam: No Edema, Pedal Pulses Palpable Extremeties Remarks Great toe right foot wound, previous ingrown toenail, edema (Fernanda Monroy. ADJUNCT PSYCHOLOGY INSTRUCTOR) Neurologic Neuro Exam: Alert, Awake, Oriented, Speech Clear, 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, Insulation Cupola Charger Equal, 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 (Fernanda Monroy. ADJUNCT PSYCHOLOGY INSTRUCTOR) Psychiatric Psych Exam: Appropriate Responses (Fernanda Monroy) PUD Prophylasis PUD Prophylaxis: Protonix (Fernanda Monroy) Assessment/Plan Assessment/Plan Vital signs reviewed, patient's afebrile, heart rate has increased over the past 24 hours from the 60s to currently 125, noted rate increase especially since 8:00 this morning. We'll put patient back on telemetry, a has a history of atrial fibrillation Labs reviewed, WBC count 1.9, hemoglobin 8.4 received packed RBCs yesterday 1, platelet count 16, BMP ordered for in the morning, patient has had mild dehydration encouraged by mouth fluids and include juice Assessment/Plan Right hallux pain/ecchymosis/swelling, status post bedside procedure 11/20/2016 neutropenia 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, secondary to herpes simplex type I, improved Right external ear cellulitis, Leukopenia, Symptomatic anemia, Improved after transfusion Severe profound symptomatic thrombocytopenia, Uncontrolled aplastic anemia Acellular bone marrow per biopsy report Status post bone marrow biopsy 05/18/17 Recent diagnosis of atrial fibrillation Recent diagnosis of gastric erosions Maculopapular rash Tachycardia possible atrial fibrillation, patient has history of Management Podiatry consult and appreciate input for right great toe, positive staph culture on 06-02 No evidence of gout, in rt. great toe wound No acute erythema, mild minimal edema, dressing clean dry and intact appreciate ID input cultures, no growth blood cultures, Mupirocin cream for both nostrils Acyclovir dc, changed to Valtrex Antibiotic therapy empiric By mouth steroids, no transfusion today, Rash, generalized on trunk, mild increase to face, not itching today, skin dry steroids begun, patient states for the most part not itching too bad but does take medication at night to help her rest HTN, medical mangement, oncology following, appreciate input, aplastic anemia Follow CBC Tachycardia, heart rate was in the 60s yesterday now 125, as trended up since midnight, but especially over the last 4 hours. Put patient on telemetry Patient has a history of atrial fibrillation, started back patient's home dose of Lanoxin 0.125 mg by mouth daily. Check EKG No DC pending, D/W RN D/W Dr. Borjas, seen on her behalf D/W pt (Fernanda Monroy) Assessment/Plan Patient seen and examined agree with above assessment and plan received Dig x1 Heart rate slowly improving monitor heart rate may need to increase Amio to 2oo bid, if tachycardia persists plan of care discussed with patient discussed with Fernanda chang in am (Tayla Borjas MD) Fernanda Monroy Jun 10, 2017 13:59 Tayla Borjas MD Jun 10, 2017 16:10
[2017-06-10] MEDS: FILGRASTIM INJ 480 MCG in DEXTROSE 5% IN WATER INJ 25 ML IV SCH ×2 (15:30)
[2017-06-11] VITALS: BP 104/53; PULSE 106; RESP 18; TEMP 96.1; O2SAT 95
[2017-06-11 04:00] VITALS: BP 134/65; PULSE 86; RESP 16; TEMP 97.4; O2SAT 98
[2017-06-11] MEDS: AZTREONAM INJ 1,000 MG in SODIUM CHLORIDE 0.9% INJ 100 ML IV SCH ×3 (04:28→19:53)
[2017-06-11] MEDS: VANCOMYCIN 1,000 MG/NS 250 ML IV SCH ×2 (05:52)
[2017-06-11] MEDS: LEVOTHYROXINE SODIUM 50 MCG TAB PO SCH (05:54)
[2017-06-11] MEDS: CLOTRIMAZOLE 10 MG TROCHE BUCCAL SCH ×5 (05:54→21:23)
[2017-06-11] MEDS: valACYclovir HCL 500 MG TAB PO SCH ×3 (05:54→21:23)
[2017-06-11] MEDS: PROMACTA 50 MG PO SCH (05:54)
[2017-06-11 06:20] LABS: BICARBONATE 26.3 MEQ/L (21.0-32.0); POTASSIUM 3.4 MEQ/L (3.5-5.1)
[2017-06-11 07:05] LABS: HEMATOCRIT 22.2 % (35.0-46.0); MEAN CELL VOLUME 83.3 FL (80.0-100.0); MEAN CORPUSCULAR HEMOGLOBIN 29.3 PG (27.0-34.0); MEAN CORPUSCULAR HGB CONC 35.2 % (32.0-36.0); RED BLOOD COUNT 2.66 MIL/MM3 (4.00-5.30); RED CELL DISTRIBUTION WIDTH 14.6 % (11.6-17.2)
[2017-06-11 07:07] LABS: HEMO FLAGS AUTO DIFF
[2017-06-11 07:08] LABS: PLATELET COUNT 10 TH/MM3 (150-450)
[2017-06-11 08:00] VITALS: BP 130/86; PULSE 124; RESP 20; TEMP 98.4; O2SAT 96
[2017-06-11] MEDS: NYSTAT/DIPHENHY/LIDO MOUTHWASH (Adult) 120ML SWISH-SWAL SCH ×4 (08:06→19:53)
[2017-06-11] MEDS: AMIODARONE 200 MG TAB PO SCH ×2 (08:06→19:51)
[2017-06-11] MEDS: PICC Daily Heparin 100 unit/mL Lock Flush IV FLUSH SCH (08:07)
[2017-06-11] MEDS: PRAVASTATIN SOD 10 MG TAB PO SCH (08:07)
[2017-06-11] MEDS: PANTOPRAZOLE SOD 40 MG DELAYED RELEASE TAB PO SCH ×2 (08:07→19:50)
[2017-06-11] MEDS: DOCUSATE SODIUM 50 MG/SENNA 8.6 MG TAB PO SCH ×2 (08:07→19:50)
[2017-06-11] MEDS: methylPREDNISolone 4 MG TAB PO SCH (08:08)
[2017-06-11] MEDS: ACYCLOVIR 5% OINT 15 APPLIC/15 GM TUBE TOPICAL SCH ×2 (08:09→21:00)
[2017-06-11] MEDS: SODIUM CHLORIDE 0.9% FLUSH 10 ML FLUSH IV FLUSH SCH ×2 (08:09→19:51)
[2017-06-11] MEDS ORDERED: SODIUM CHLOR 0.9% 250 ML INJ 250 ML IV ONE (09:15)
[2017-06-11] MEDS ORDERED: ACETAMINOPHEN 325 MG TAB PO PRN (09:15)
[2017-06-11] MEDS ORDERED: diphenhydrAMINE HCL 25 MG CAP PO PRN (09:15)
[2017-06-11 09:23] LABS: BANDS 1 % (0-6); BASOPHILS 1 % (0-2); NEUTROPHIL # MANUAL DIFF 0.1 TH/MM3 (1.8-7.7); PLATELET ESTIMATE SMEAR RARE (NORMAL); PLATELET MORPHOLOGY NORMAL (NORMAL); POLYS (SEG NEUTROPHILS) 2 % (16-70); WBC DIFF SAMPLE 100
[2017-06-11 09:24] LABS: SCAN/DIFF FINAL DIFF MANUAL
--- NOTE | 2017-06-11 11:31 | PD.ONC.PN ---
Subjective Subjective Remarks Afebrile overnight The patient is concerned about getting her Promacta She is not sure if her daughter knows to pick this up and bring it to the hospital She denies any acute complaints Objective Data Date Time Temp Pulse Resp B/P Pulse Ox O2 Delivery O2 Flow Rate FiO2 06/11/17 08:00 98.4 124 20 130/86 96 06/11/17 04:00 97.4 86 16 134/65 98 06/11/17 00:00 96.1 106 18 104/53 95 06/10/17 20:22 110 06/10/17 20:00 97.3 100 18 97/62 98 06/10/17 16:00 104 06/10/17 16:00 98.1 92 16 99/61 93 06/10/17 14:00 124 06/10/17 11:59 98.7 125 12 141/67 97 06/11/17 06/11/17 06/11/17 07:00 15:00 23:00 Intake Total 250 ml Output Total 550 ml Balance -300 ml Result Diagram: 06/11/17 0426 06/11/17 0426 Laboratory Results Laboratory Tests Test 06/11/17 06/11/17 04:26 09:02 White Blood Count 2.0 TH/MM3 Red Blood Count 2.66 MIL/MM3 Hemoglobin 7.8 GM/DL Hematocrit 22.2 % Mean Corpuscular Volume 83.3 FL Mean Corpuscular Hemoglobin 29.3 PG Mean Corpuscular Hemoglobin 35.2 % Concent Red Cell Distribution Width 14.6 % Platelet Count 10 TH/MM3 Mean Platelet Volume 8.7 FL Neutrophils (%) (Auto) % Lymphocytes (%) (Auto) % Monocytes (%) (Auto) % Eosinophils (%) (Auto) % Basophils (%) (Auto) % Neutrophils # (Auto) TH/MM3 Lymphocytes # (Auto) TH/MM3 Monocytes # (Auto) TH/MM3 Eosinophils # (Auto) TH/MM3 Basophils # (Auto) TH/MM3 CBC Comment AUTO DIFF Differential Total Cells 100 Counted Neutrophils % (Manual) 2 % Band Neutrophils % 1 % Lymphocytes % 94 % Monocytes % 2 % Basophils % 1 % Neutrophils # (Manual) 0.1 TH/MM3 Differential Comment FINAL DIFF MANUAL Platelet Estimate RARE Platelet Morphology Comment NORMAL Red Cell Morphology Comment NORMAL Sodium Level 142 MEQ/L Potassium Level 3.4 MEQ/L Chloride Level 109 MEQ/L Carbon Dioxide Level 26.3 MEQ/L Anion Gap 7 MEQ/L Blood Urea Nitrogen 22 MG/DL Creatinine 0.56 MG/DL Estimat Glomerular Filtration 104 ML/MIN Rate Random Glucose 71 MG/DL Calcium Level 7.5 MG/DL Blood Bank Comment Administered Medications Medications (Trade) Dose Ordered Sig/José Route PRN Reason Start Time Stop Time Status Last Admin Dose Admin Sodium Chloride (NS Flush) 2 ml UNSCH PRN IV FLUSH FLUSH AFTER USING IV ACCESS 05/18/17 10:15 05/30/17 10:15 Sodium Chloride (NS Flush) 2 ml BID IV FLUSH 05/18/17 21:00 06/11/17 08:09 Ondansetron HCl (Zofran Inj) 4 mg Q6H PRN IVP NAUSEA OR VOMITING 05/18/17 10:15 06/08/17 04:56 Senna/Docusate Sodium (Rosalinda-Colace) 1 tab BID PO 05/18/17 21:00 06/10/17 09:00 Amiodarone HCl (Cordarone) 200 mg DAILY PO 05/19/17 09:00 06/11/17 08:06 Levothyroxine Sodium (Synthroid) 50 mcg DAILY@0600 PO 05/19/17 06:00 06/11/17 05:54 Pantoprazole Sodium (Protonix) 40 mg BID PO 05/18/17 21:00 06/11/17 08:07 Pravastatin Sodium (Pravachol) 10 mg DAILY PO 05/19/17 09:00 06/11/17 08:07 Diphenhydramine HCl (Benadryl) 25 mg Q4H PRN PO FOR BLOOD PRODUCTS 05/19/17 01:30 06/10/17 00:54 Acetaminophen (Tylenol) 650 mg Q4H PRN PO BLOOD PRODUCTS OR FEVER>100.4 05/19/17 01:30 06/09/17 16:34 Furosemide (Lasix) 20 mg BID@ PO 05/23/17 18:00 Hold 06/08/17 09:49 Patient Own Medication PT OWN MED: Proma... DAILY@06 PO 05/26/17 06:00 06/11/17 05:54 Potassium Chloride (KCl) 20 meq BID PO 05/28/17 21:00 Hold 06/08/17 09:49 Mupirocin 1 applic 1 applic BID EACH NARE 05/30/17 15:00 Hold 06/05/17 21:44 Filgrastim/ Dextrose (Neupogen Inj/ D5W Inj) 26.6 ml @ 106.4 mls/ hr DAILY@14 IV 05/31/17 14:00 06/10/17 15:30 Acyclovir (Zovirax 5% Oint (15 Gm)) 1 applic BID TOPICAL 06/01/17 15:00 06/11/17 08:09 Multi-Ingredient Mouthwash/Gargle 5 ml 5 ml QID SWISH-SWAL 06/03/17 13:00 06/11/17 08:06 Aztreonam 1000 mg/ Sodium Chloride 100 ml @ 200 mls/hr Q8H IV 06/04/17 12:00 06/11/17 04:28 Vancomycin HCl/ Sodium Chloride (Vancomycin Inj/ NS 250 ml Inj) 250 ml @ 250 mls/hr Q24H IV 06/05/17 05:00 06/11/17 05:52 Valacyclovir HCl (Valtrex) 1,000 mg Q8HR PO 06/04/17 14:15 06/11/17 05:54 Heparin Sodium (Porcine) (Heparin Central Flush) 200 units DAILY IV FLUSH 06/06/17 09:00 06/11/17 08:07 Sodium Chloride (NS Flush) 5 ml UNSCH PRN IV FLUSH SEE PROTOCOL TABLE 06/06/17 07:00 06/07/17 22:56 Heparin Sodium (Porcine) (Heparin Central Flush) 200 units UNSCH PRN IV FLUSH SEE PROTOCOL TABLE 06/06/17 07:00 06/07/17 22:56 Sodium Chloride (NS Flush) 5 ml UNSCH PRN IV FLUSH NEEDED 06/06/17 07:00 06/07/17 04:59 Sodium Chloride (NS Flush) 5 ml UNSCH PRN IV FLUSH SEE PROTOCOL TABLE 06/06/17 07:00 06/07/17 04:58 Methylprednisolone (Medrol) 40 mg DAILY PO 06/07/17 09:00 06/11/17 08:08 Objective Remarks GENERAL: Chronically ill appearing female sitting up in bed in no distress SKIN: Warm and dry. Confluent red rash on trunk, neck face and extremities. HEAD: Normocephalic. EYES: No injection or drainage. NECK: Supple, trachea midline. CARDIOVASCULAR: + S1/S2. RESPIRATORY: Breath sounds equal bilaterally. No accessory muscle use. GASTROINTESTINAL: Abdomen soft, non-tender, nondistended. EXTREMITIES: No cyanosis. Right great toe with clean bandage. NEUROLOGICAL: Awake and alert, normal speech. moving all extremities. Assessment/Plan Problem List: (1) Pancytopenia Status: Acute Plan: -- +aplastic anemia -- bone marrow biopsy results show aplastic anemia -- s/p ATG and cyclosporine (2) Neutropenic fever Status: Acute Plan: --BC 06/08: no growth (3) serum sickness rash Status: Acute Plan: --on solu-medrol 40mg PO daily --d/t ATG/cyclosporine tx Assessment 82-year-old female with anemia brought in for immunosuppressive treatment Plan The exam, history, and the medical decision-making described in the above note were completed with the assistance of the mid-level provider. I reviewed and agree with the findings presented. I attest that I had a [id number] encounter with the patient on the same day, and personally performed and documented my assessment and findings in the medical record.1. Will give irradiated platelet transfusion today for platelets of 10,000. 2. Continue steroids for serum sickness rash. 3. Expect counts to recover some point next week 4. Will help patient to facilitate information about Promacta delivery so that her daughter can bring this important medication to the hospital. Attending Statement The exam, history, and the medical decision-making described in the above note were completed with the assistance of the mid-level provider. I reviewed and agree with the findings presented. I attest that I had a [id number] encounter with the patient on the same day, and personally performed and documented my assessment and findings in the medical record. the patient has significant ecchymoses and has received platelets today. We have contacted pharmacy today and have asked them to obtain Promacta TORI. Hopefully her shipment will arrive soon. Above discussed with patient. Merry Hebert Jun 11, 2017 11:31 Rajinder Roa MD Jun 11, 2017 17:48
[2017-06-11] MEDS: diphenhydrAMINE HCL 25 MG CAP PO PRN (11:49)
[2017-06-11] MEDS: ACETAMINOPHEN 325 MG TAB PO PRN (11:49)
--- NOTE | 2017-06-11 13:02 | HHI.PR ---
Subjective Subjective Remarks Awake resting in bed Rash continues on extremities and trunk, essentially unchanged Heart rate 125, a fib, patient denies any chest pain or palpitations Up on side of bed and in room at intervals (Fernanda Monroy) Review of Systems Constitutional Constitutional: Fatigue, Weakness Constitutional Remarks 10 point ROS done positives noted, fever (Fernanda Monroy) Eyes Eyes: Itching (occasional, especially at night) (Fernanda Monroy) Ears and Nose Ears and Nose Remarks Generalized rash moving up on face (Fernanda Monroy) Throat Throat Remarks Scabbed one third of lower lip sore, dry (Fernanda Monroy) Pulmonary Respiratory: Shortness of Breath (, exertional) (Fernanda Monroy) GI/Abdomen GI/Abdominal Exam: Constipation (resolved, VM yesterday) GI/Abdomen Remarks Encourage by mouth fluids (Fernanda Monroy) Musculoskeletal MS: Weakness (Fernanda Monroy) Integumentary Skin Remarks rt. great toe (Fernanda Monroy) Psychiatric Psychiatric: Normal Mood (Fernanda Monroy) Vitals/Results Intake & Output 06/10/17 06/10/17 06/11/17 15:00 23:00 07:00 Intake Total 374 ml 250 ml 250 ml Output Total 550 ml Balance 374 ml 250 ml -300 ml Intake Oral 374 ml 250 ml 250 ml Output Urine Total 550 ml # Voids 2 1 # Bowel Movements 1 Vital Signs Vital Signs Date Time Temp Pulse Resp B/P Pulse Ox O2 Delivery O2 Flow Rate FiO2 06/11/17 08:00 98.4 124 20 130/86 96 06/11/17 04:00 97.4 86 16 134/65 98 06/11/17 00:00 96.1 106 18 104/53 95 06/10/17 20:22 110 06/10/17 20:00 97.3 100 18 97/62 98 06/10/17 16:00 104 06/10/17 16:00 98.1 92 16 99/61 93 06/10/17 14:00 124 (Fernanda Monroy) CBC/BMP: 06/11/17 0426 06/11/17 0426 Lab Results Laboratory Tests Test 06/11/17 06/11/17 04:26 09:02 White Blood Count 2.0 TH/MM3 Red Blood Count 2.66 MIL/MM3 Hemoglobin 7.8 GM/DL Hematocrit 22.2 % Mean Corpuscular Volume 83.3 FL Mean Corpuscular Hemoglobin 29.3 PG Mean Corpuscular Hemoglobin 35.2 % Concent Red Cell Distribution Width 14.6 % Platelet Count 10 TH/MM3 Mean Platelet Volume 8.7 FL Neutrophils (%) (Auto) % Lymphocytes (%) (Auto) % Monocytes (%) (Auto) % Eosinophils (%) (Auto) % Basophils (%) (Auto) % Neutrophils # (Auto) TH/MM3 Lymphocytes # (Auto) TH/MM3 Monocytes # (Auto) TH/MM3 Eosinophils # (Auto) TH/MM3 Basophils # (Auto) TH/MM3 CBC Comment AUTO DIFF Differential Total Cells 100 Counted Neutrophils % (Manual) 2 % Band Neutrophils % 1 % Lymphocytes % 94 % Monocytes % 2 % Basophils % 1 % Neutrophils # (Manual) 0.1 TH/MM3 Differential Comment FINAL DIFF MANUAL Platelet Estimate RARE Platelet Morphology Comment NORMAL Red Cell Morphology Comment NORMAL Sodium Level 142 MEQ/L Potassium Level 3.4 MEQ/L Chloride Level 109 MEQ/L Carbon Dioxide Level 26.3 MEQ/L Anion Gap 7 MEQ/L Blood Urea Nitrogen 22 MG/DL Creatinine 0.56 MG/DL Estimat Glomerular Filtration 104 ML/MIN Rate Random Glucose 71 MG/DL Calcium Level 7.5 MG/DL Blood Bank Comment Imaging Remarks Last Impressions Chest X-Ray 05/31/17 0600 Signed Impressions: Service Date/Time: Wednesday, May 31, 2017 05:54 - CONCLUSION: 1. Chronic interstitial lung disease. 2. No new focal pulmonary infiltrates are demonstrated. Maurice Jean Baptiste MD Bone Biopsy CT 05/18/17 1456 Signed Impressions: Service Date/Time: Thursday, May 18, 2017 15:21 - CONCLUSION: 1. Uncomplicated CT guided bone marrow aspirate. 2. Uncomplicated CT guided bone marrow biopsy. Robert Cruz MD FACR PICC Line Insertion 05/18/17 0000 Signed Impressions: Service Date/Time: Thursday, May 18, 2017 13:31 - CONCLUSION: 1. Uncomplicated central venous Power PICC line placement. 2. The PICC line can be used immediately. Meliton Lerma MD Current Medications Administered Medications Medications (Trade) Dose Ordered Sig/José Route PRN Reason Start Time Stop Time Status Last Admin Dose Admin Sodium Chloride (NS Flush) 2 ml UNSCH PRN IV FLUSH FLUSH AFTER USING IV ACCESS 05/18/17 10:15 05/30/17 10:15 Sodium Chloride (NS Flush) 2 ml BID IV FLUSH 05/18/17 21:00 06/11/17 08:09 Ondansetron HCl (Zofran Inj) 4 mg Q6H PRN IVP NAUSEA OR VOMITING 05/18/17 10:15 06/08/17 04:56 Senna/Docusate Sodium (Rosalinda-Colace) 1 tab BID PO 05/18/17 21:00 06/10/17 09:00 Levothyroxine Sodium (Synthroid) 50 mcg DAILY@0600 PO 05/19/17 06:00 06/11/17 05:54 Pantoprazole Sodium (Protonix) 40 mg BID PO 05/18/17 21:00 06/11/17 08:07 Pravastatin Sodium (Pravachol) 10 mg DAILY PO 05/19/17 09:00 06/11/17 08:07 Diphenhydramine HCl (Benadryl) 25 mg Q4H PRN PO FOR BLOOD PRODUCTS 05/19/17 01:30 06/11/17 11:49 Acetaminophen (Tylenol) 650 mg Q4H PRN PO BLOOD PRODUCTS OR FEVER>100.4 05/19/17 01:30 06/11/17 11:49 Furosemide (Lasix) 20 mg BID@09,18 PO 05/23/17 18:00 Hold 06/08/17 09:49 Patient Own Medication PT OWN MED: Proma... DAILY@06 PO 05/26/17 06:00 06/11/17 05:54 Potassium Chloride (KCl) 20 meq BID PO 05/28/17 21:00 Hold 06/08/17 09:49 Mupirocin 1 applic 1 applic BID EACH NARE 05/30/17 15:00 Hold 06/05/17 21:44 Filgrastim/ Dextrose (Neupogen Inj/ D5W Inj) 26.6 ml @ 106.4 mls/ hr DAILY@14 IV 05/31/17 14:00 06/11/17 14:06 Acyclovir (Zovirax 5% Oint (15 Gm)) 1 applic BID TOPICAL 06/01/17 15:00 06/11/17 08:09 Multi-Ingredient Mouthwash/Gargle 5 ml 5 ml QID SWISH-SWAL 06/03/17 13:00 06/11/17 11:50 Aztreonam 1000 mg/ Sodium Chloride 100 ml @ 200 mls/hr Q8H IV 06/04/17 12:00 06/11/17 11:49 Vancomycin HCl/ Sodium Chloride (Vancomycin Inj/ NS 250 ml Inj) 250 ml @ 250 mls/hr Q24H IV 06/05/17 05:00 06/11/17 05:52 Valacyclovir HCl (Valtrex) 1,000 mg Q8HR PO 06/04/17 14:15 06/11/17 14:06 Heparin Sodium (Porcine) (Heparin Central Flush) 200 units DAILY IV FLUSH 06/06/17 09:00 06/11/17 08:07 Sodium Chloride (NS Flush) 5 ml UNSCH PRN IV FLUSH SEE PROTOCOL TABLE 06/06/17 07:00 06/07/17 22:56 Heparin Sodium (Porcine) (Heparin Central Flush) 200 units UNSCH PRN IV FLUSH SEE PROTOCOL TABLE 06/06/17 07:00 06/07/17 22:56 Sodium Chloride (NS Flush) 5 ml UNSCH PRN IV FLUSH NEEDED 06/06/17 07:00 06/07/17 04:59 Sodium Chloride (NS Flush) 5 ml UNSCH PRN IV FLUSH SEE PROTOCOL TABLE 06/06/17 07:00 06/07/17 04:58 Methylprednisolone 40 mg 40 mg DAILY PO 06/07/17 09:00 06/11/17 08:08 Sodium Chloride (NS 250 ml Inj) 250 ml @ 15 mls/hr ONCE ONCE IV 06/11/17 09:15 06/12/17 01:54 06/11/17 09:15 (Fernanda Monroy) Physical Exam General General Appearance: Well Developed, Comfortable (doesnt complain), Pale Appearance Remarks Macular rash (Fernanda Monroy) Eyes Eye Exam: Pupils Reactive (Ferannda Monroy. MANAGER [employer]) Ears & Nose Ears & Nose Exam: Nasal Mucosa [place] (Fernanda Monroy. MANAGER [employer]) Throat Throat Exam: Oral Mucosa [place] & Moist (Fernanda Monroy [employer]NAGER [employer]) Neck Neck Exam: Trachea Midline (Fernanda Monroy [employer]NAGER [employer]) Pulmonary Resp Exam: Clear Bilaterally, Breath Sounds Equal, No Distress (Fernanda Monroy [employer]) Cardiology CV Exam: Good Perfusion (placed on telemetry today), Tachycardia (Fernanda Monroy. MANAGER [employer]) Gastrointestinal/Abdomen GI Exam: Soft, Non-Tender, Bowel Sounds Present, Non-Distended (Fernanda Monroy. MANAGER [employer]) Musculoskeletal MS Exam: Normal Tone (Fernanda Monroy. MANAGER [employer]) Integumentary Skin Exam: Warm, Dry, Ulcer(s) (top lip with ulcerated area ) (Fernanda Monroy. MANAGER [employer]) Extremeties Extremities Exam: No Edema, Pedal Pulses Palpable Extremeties Remarks Great toe right foot wound, previous ingrown toenail, edema (Fernanda Monroy. MANAGER [employer]) Neurologic Neuro Exam: Alert, Awake, Oriented, Speech Clear, 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, Ultimate Hoops Scoreboard Operator Equal, 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 (Fernanda Monroy. MANAGER [employer]) Psychiatric Psych Exam: Appropriate Responses (Fernanda MonroyP) PUD Prophylasis PUD Prophylaxis: Protonix (Fernanda Monroy. MANAGER [employer]) Assessment/Plan Assessment/Plan Assessment/Plan Vital signs reviewed, patient's afebrile, heart rate labile 125, history of atrial fibrillation Labs reviewed, receiving platelets today Hypokalemia mild KCl by mouth 20 mEq 1, Assessment/Plan Right hallux pain/ecchymosis/swelling, status post bedside procedure 11/20/2016 neutropenia 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, secondary to herpes simplex type I, improved Right external ear cellulitis, Leukopenia, Symptomatic anemia, Improved after transfusion Severe profound symptomatic thrombocytopenia, Uncontrolled aplastic anemia Acellular bone marrow per biopsy report Status post bone marrow biopsy 05/18/17 Recent diagnosis of atrial fibrillation Recent diagnosis of gastric erosions Maculopapular rash atrial fibrillation, uncontrolled Management appreciate ID input cultures, no growth blood cultures, continue Valtrex, Mupirocin cream for both nostrils Rash, generalized on trunk, mild increase to face, not itching today, skin dry steroids begun, patient states for the most part not itching too bad but does take medication at night to help her rest HTN, medical mangement, oncology following, appreciate input, aplastic anemia Follow CBC, platelets today, continue steroids Continue steroids for serum sickness rash. Atrial fibrillation , RVR , Tachycardia, telemetry, continues tacky especially during the daytime currently a 125, increase Amniodarone to 200mg BID, Atrial fibrillation, day 2 Podiatry consult and appreciate input for right great toe, positive staph culture on 06-02, No evidence of gout, in rt. great toe wound No acute erythema, mild minimal edema, dressing clean dry and intact Discharge planning when okay with oncology D/W RN D/W Dr. Borjas, seen on her behalf D/W pt (Fernanda Monroy) Assessment/Plan patient seen and examined agree with above assessment and plan rash fading a fib with RVR, increase Amio to 200 bid patient anxious about Promacta, d./w nursing staff. Oncology trying to get the medication delivered to patient's outpatient pharmacy. platelets transfused today plan of care discussed with patient and nursing staff discussed with Fernanda MIJARES daily labs (Tayla Borjas MD) Fernanda Monroy Jun 11, 2017 13:02 Tayla Borjas MD Jun 11, 2017 15:08
[2017-06-11] MEDS: FILGRASTIM INJ 480 MCG in DEXTROSE 5% IN WATER INJ 25 ML IV SCH ×2 (14:06)
[2017-06-11] MEDS ORDERED: POTASSIUM CHLORIDE 20 MEQ CONTROLLED RELEASE TAB PO ONE (14:45)
[2017-06-11 16:00] VITALS: BP 126/84; PULSE 108; RESP 18; TEMP 97; O2SAT 94
[2017-06-11 16:13] VITALS: PULSE 157
--- NOTE | 2017-06-11 16:38 | EKG ---
Date Performed: 06/10/2017 Time Performed: 22:26:24 PTAGE: 82 years EKG: ATRIAL FIBRILLATION Small inferior Q-waves of undetermined significance Since PREVIOUS TRACING , rhythm has changed from sinus bradycardia to atrial fibrillation. ST-T changes have slightly improved. PREVIOUS TRACIN05/11/2017 06.41 DOCTOR: Rajinder Ingram Interpretating Date/Time 06/11/2017 16:37:17
--- NOTE | 2017-06-11 17:47 | PD.POD ---
Subjective Podiatric Problems s/p ingrown toenail removal R lateral hallux Past Med/Surg/Social History Social History Smoking Status: Former Smoker Objective Vital Signs Vital Signs Date Time Temp Pulse Resp B/P Pulse Ox O2 Delivery O2 Flow Rate FiO2 06/11/17 16:13 157 06/11/17 16:00 97.0 108 18 126/84 94 06/11/17 08:00 98.4 124 20 130/86 96 06/11/17 04:00 97.4 86 16 134/65 98 06/11/17 00:00 96.1 106 18 104/53 95 06/10/17 20:22 110 06/10/17 20:00 97.3 100 18 97/62 98 Coded Allergies: No Known Allergies (Verified , 05/08/17) Physical Exam Remarks R foot with slowly resolving skin reaction. Discoloration is lightening at hallux area, but still remains to dorsal foot and ankle. Same lesions also visible on anterior L ankle area in patches, which confirms that it is not cellulitis. Assessment & Plan A/P Ingrown toenail R hallux, s/p avulsion with Dr Medrano Podiatry signing off. No further treatment necessary Do not feel this is cellulitis due to lesion appearing on other leg that are identical in appearance to R foot/ankle lesions Lani Chris DPM Jun 11, 2017 17:47
--- NOTE | 2017-06-11 19:52 | HHI.IDPN ---
Subjective Subjective Remarks doing well rash is quite prominent but denies pruritis In good spirits afebrile x 2 days Antibiotics vanco azactam valtrex Allergies: Coded Allergies: No Known Allergies (Verified , 05/08/17) Objective . Vital Signs Date Time Temp Pulse Resp B/P Pulse Ox O2 Delivery O2 Flow Rate FiO2 06/11/17 16:13 157 06/11/17 16:00 97.0 108 18 126/84 94 06/11/17 08:00 98.4 124 20 130/86 96 06/11/17 04:00 97.4 86 16 134/65 98 06/11/17 00:00 96.1 106 18 104/53 95 06/10/17 20:22 110 06/10/17 20:00 97.3 100 18 97/62 98 06/10/17 06/10/17 06/11/17 15:00 23:00 07:00 Intake Total 374 ml 250 ml 250 ml Output Total 550 ml Balance 374 ml 250 ml -300 ml Intake Oral 374 ml 250 ml 250 ml Output Urine Total 550 ml # Voids 2 1 # Bowel Movements 1 . Laboratory Tests Test 06/10/17 06/11/17 05:50 04:26 White Blood Count 1.9 TH/MM3 2.0 TH/MM3 Red Blood Count 2.89 MIL/MM3 2.66 MIL/MM3 Hemoglobin 8.4 GM/DL 7.8 GM/DL Hematocrit 24.3 % 22.2 % Mean Corpuscular Volume 84.2 FL 83.3 FL Mean Corpuscular Hemoglobin 29.2 PG 29.3 PG Mean Corpuscular Hemoglobin 34.7 % 35.2 % Concent Red Cell Distribution Width 14.2 % 14.6 % Platelet Count 16 TH/MM3 10 TH/MM3 Mean Platelet Volume 8.0 FL 8.7 FL Neutrophils (%) (Auto) % % Lymphocytes (%) (Auto) % % Monocytes (%) (Auto) % % Eosinophils (%) (Auto) % % Basophils (%) (Auto) % % Neutrophils # (Auto) TH/MM3 TH/MM3 Lymphocytes # (Auto) TH/MM3 TH/MM3 Monocytes # (Auto) TH/MM3 TH/MM3 Eosinophils # (Auto) TH/MM3 TH/MM3 Basophils # (Auto) TH/MM3 TH/MM3 CBC Comment AUTO DIFF AUTO DIFF Differential Total Cells 100 100 Counted Neutrophils % (Manual) 2 % 2 % Band Neutrophils % 1 % 1 % Lymphocytes % 96 % 94 % Monocytes % 1 % 2 % Neutrophils # (Manual) 0.1 TH/MM3 0.1 TH/MM3 Differential Comment FINAL DIFF FINAL DIFF MANUAL MANUAL Platelet Estimate RARE RARE Platelet Morphology Comment NORMAL NORMAL Red Cell Morphology Comment NORMAL NORMAL Basophils % 1 % Laboratory Tests Test 06/11/17 04:26 Sodium Level 142 MEQ/L Potassium Level 3.4 MEQ/L Chloride Level 109 MEQ/L Carbon Dioxide Level 26.3 MEQ/L Anion Gap 7 MEQ/L Blood Urea Nitrogen 22 MG/DL Creatinine 0.56 MG/DL Estimat Glomerular Filtration 104 ML/MIN Rate Random Glucose 71 MG/DL Calcium Level 7.5 MG/DL Imaging Last Impressions Chest X-Ray 05/31/17 0600 Signed Impressions: Service Date/Time: Wednesday, May 31, 2017 05:54 - CONCLUSION: 1. Chronic interstitial lung disease. 2. No new focal pulmonary infiltrates are demonstrated. Maurice Jean Baptiste MD Bone Biopsy CT 05/18/17 1456 Signed Impressions: Service Date/Time: Thursday, May 18, 2017 15:21 - CONCLUSION: 1. Uncomplicated CT guided bone marrow aspirate. 2. Uncomplicated CT guided bone marrow biopsy. Robert Cruz MD FACR PICC Line Insertion 05/18/17 0000 Signed Impressions: Service Date/Time: Thursday, May 18, 2017 13:31 - CONCLUSION: 1. Uncomplicated central venous Power PICC line placement. 2. The PICC line can be used immediately. Meliton Lerma MD Physical Exam CONSTITUTIONAL/GENERAL: This is an adequately nourished patient, in no apparent distress. TUBES/LINES/DRAINS: SKIN: + prominent non blanching very diffuse rash macula-papula on th back, torso, non pruritic, extremetis hemorragic rash on abdomen and RLE Skin temperature appropriate. Not diaphoretic. EYES: Pupils equal and round and reactive. . No scleral icterus. No injection or drainage. ENT: Hearing grossly normal. Nose without bleeding or purulent drainage. Oral mucosae without visible erythema, exudates, masses, or lesions. Crusted lesions on upper lip healing , still some induration present CARDIOVASCULAR: Regular rate and rhythm without murmurs, gallops, or rubs. No JVD. RESPIRATORY/CHEST: Symmetric, unlabored respirations. Clear to auscultation. Breath sounds equal bilaterally. No wheezes, rales, or rhonchi. GASTROINTESTINAL: Abdomen soft, non-tender, nondistended. No hepato-splenomegaly , or palpable masses. Bowel sounds present. MUSCULOSKELETAL: Extremities without clubbing, cyanosis, R foot edema. R hallux with dry clean wound Hemorragic cellultic changes noted NEUROLOGICAL: Awake and alert. Motor and sensory grossly within normal limits. Follows commands. Clear speech. Moves all extremities. PSYCHIATRIC: calm and cooperative Assessment & Plan Remarks Aplastic anemia, pancytopenia Severe neutropenia, ANC of 0, refractory Severe thrombocytopenia R pinna cellilits - resolved Upper lip crusted lesion - slowly improving on acyclovi - HSV1+ Fever, low grade R hallux paronichia with ascending mild cellulitis - clx with Staph hominis, cw skin colonisation Skin rash mostly cw allergic reaction ? cefepime REC's: cont vanco x 2 weeks cont azactam x 2 weeks will add micafungin if cont to spike cont valtrex repeat BC if spikes avoid cephalosporins Roseann Salinas RN, MD Jun 11, 2017 19:52
[2017-06-11 20:00] VITALS: BP 133/77; PULSE 110; RESP 19; TEMP 97.1; O2SAT 95
[2017-06-12] VITALS (14 sets, daily range): BP systolic 109–141; BP diastolic 55–87; PULSE 67–101; RESP 16–18; TEMP 97.3–99.3; O2SAT 92–96
[2017-06-12] MEDS: AZTREONAM INJ 1,000 MG in SODIUM CHLORIDE 0.9% INJ 100 ML IV SCH ×3 (04:33→20:05)
[2017-06-12] MEDS ORDERED: PHARMACY ORDERED LAB ONE (04:45)
[2017-06-12] MEDS: valACYclovir HCL 500 MG TAB PO SCH ×3 (05:50→20:07)
[2017-06-12] MEDS: LEVOTHYROXINE SODIUM 50 MCG TAB PO SCH (05:50)
[2017-06-12] MEDS: VANCOMYCIN 1,000 MG/NS 250 ML IV SCH ×2 (05:51)
[2017-06-12] MEDS: CLOTRIMAZOLE 10 MG TROCHE BUCCAL SCH ×5 (05:56→20:04)
[2017-06-12] MEDS ORDERED: ELTROMBOPAG 50 MG TAB PO ONE (06:00)
[2017-06-12] MEDS ORDERED: NON-FORMULARY DRUG PO ONE ×2 (06:00)
[2017-06-12 06:09] LABS: HEMATOCRIT 21.4 % (35.0-46.0); MEAN CORPUSCULAR HGB CONC 34.5 % (32.0-36.0); PLATELET COUNT 28 TH/MM3 (150-450); RED BLOOD COUNT 2.55 MIL/MM3 (4.00-5.30); RED CELL DISTRIBUTION WIDTH 14.2 % (11.6-17.2); WHITE BLOOD COUNT 2.2 TH/MM3 (4.0-11.0)
[2017-06-12 06:15] LABS: HEMO FLAGS AUTO DIFF
[2017-06-12 06:37] LABS: BICARBONATE 26.1 MEQ/L (21.0-32.0); POTASSIUM 3.5 MEQ/L (3.5-5.1)
[2017-06-12 06:39] LABS: VANCOMYCIN TROUGH 12.5 MCG/ML (5.0-10.0)
[2017-06-12 08:22] LABS: POLYS (SEG NEUTROPHILS) 4 % (16-70); WBC DIFF SAMPLE 100
[2017-06-12 08:23] LABS: NEUTROPHIL # MANUAL DIFF 0.1 TH/MM3 (1.8-7.7); PLATELET ESTIMATE SMEAR LOW (NORMAL); PLATELET MORPHOLOGY NORMAL (NORMAL); SCAN/DIFF FINAL DIFF MANUAL
[2017-06-12] MEDS ORDERED: diphenhydrAMINE HCL 25 MG CAP PO PRN (08:45)
[2017-06-12] MEDS ORDERED: SODIUM CHLOR 0.9% 250 ML INJ 250 ML IV ONE (08:45)
[2017-06-12] MEDS ORDERED: ACETAMINOPHEN 325 MG TAB PO PRN (08:45)
[2017-06-12] MEDS: DOCUSATE SODIUM 50 MG/SENNA 8.6 MG TAB PO SCH ×2 (09:00→20:04)
[2017-06-12] MEDS: PICC Daily Heparin 100 unit/mL Lock Flush IV FLUSH SCH (09:00)
[2017-06-12] MEDS: NYSTAT/DIPHENHY/LIDO MOUTHWASH (Adult) 120ML SWISH-SWAL SCH ×4 (09:24→20:03)
[2017-06-12] MEDS: methylPREDNISolone 4 MG TAB PO SCH (09:25)
[2017-06-12] MEDS: PANTOPRAZOLE SOD 40 MG DELAYED RELEASE TAB PO SCH ×2 (09:25→20:04)
[2017-06-12] MEDS: AMIODARONE 200 MG TAB PO SCH ×2 (09:26→20:04)
[2017-06-12] MEDS: PRAVASTATIN SOD 10 MG TAB PO SCH (09:26)
[2017-06-12] MEDS: SODIUM CHLORIDE 0.9% FLUSH 10 ML FLUSH IV FLUSH SCH ×2 (09:27→20:04)
[2017-06-12] MEDS: ACYCLOVIR 5% OINT 15 APPLIC/15 GM TUBE TOPICAL SCH ×2 (09:27→20:11)
--- NOTE | 2017-06-12 09:38 | PD.ONC.PN ---
Subjective Subjective Remarks Afebrile overnight Patient up and about in room with her daughter at bedside Denies any acute complaints Happy to have received her medicine this morning Objective Data Date Time Temp Pulse Resp B/P Pulse Ox O2 Delivery O2 Flow Rate FiO2 06/12/17 08:58 98.5 78 18 123/63 95 06/12/17 04:00 99.3 74 18 137/64 96 06/12/17 00:21 76 06/12/17 00:00 97.3 90 17 109/55 96 06/11/17 20:00 97.1 110 19 133/77 95 06/11/17 16:13 157 06/11/17 16:00 97.0 108 18 126/84 94 06/12/17 06/12/17 06/12/17 07:00 15:00 23:00 Intake Total 0 ml Balance 0 ml Result Diagram: 06/12/17 0430 06/12/17 0445 Laboratory Results Laboratory Tests Test 06/12/17 06/12/17 04:30 04:45 White Blood Count 2.2 TH/MM3 Red Blood Count 2.55 MIL/MM3 Hemoglobin 7.4 GM/DL Hematocrit 21.4 % Mean Corpuscular Volume 84.0 FL Mean Corpuscular Hemoglobin 29.0 PG Mean Corpuscular Hemoglobin 34.5 % Concent Red Cell Distribution Width 14.2 % Platelet Count 28 TH/MM3 Mean Platelet Volume 8.5 FL Neutrophils (%) (Auto) % Lymphocytes (%) (Auto) % Monocytes (%) (Auto) % Eosinophils (%) (Auto) % Basophils (%) (Auto) % Neutrophils # (Auto) TH/MM3 Lymphocytes # (Auto) TH/MM3 Monocytes # (Auto) TH/MM3 Eosinophils # (Auto) TH/MM3 Basophils # (Auto) TH/MM3 CBC Comment AUTO DIFF Differential Total Cells 100 Counted Neutrophils % (Manual) 4 % Lymphocytes % 96 % Neutrophils # (Manual) 0.1 TH/MM3 Differential Comment FINAL DIFF MANUAL Platelet Estimate LOW Platelet Morphology Comment NORMAL Red Cell Morphology Comment NORMAL Sodium Level 143 MEQ/L Potassium Level 3.5 MEQ/L Chloride Level 109 MEQ/L Carbon Dioxide Level 26.1 MEQ/L Anion Gap 8 MEQ/L Blood Urea Nitrogen 22 MG/DL Creatinine 0.64 MG/DL Estimat Glomerular Filtration 89 ML/MIN Rate Random Glucose 70 MG/DL Calcium Level 7.9 MG/DL Vancomycin Level Trough 12.5 MCG/ML Administered Medications Medications (Trade) Dose Ordered Sig/José Route PRN Reason Start Time Stop Time Status Last Admin Dose Admin Sodium Chloride (NS Flush) 2 ml UNSCH PRN IV FLUSH FLUSH AFTER USING IV ACCESS 05/18/17 10:15 05/30/17 10:15 Sodium Chloride (NS Flush) 2 ml BID IV FLUSH 05/18/17 21:00 06/12/17 09:27 Ondansetron HCl (Zofran Inj) 4 mg Q6H PRN IVP NAUSEA OR VOMITING 05/18/17 10:15 06/08/17 04:56 Senna/Docusate Sodium (Rosalinda-Colace) 1 tab BID PO 05/18/17 21:00 06/11/17 19:50 Levothyroxine Sodium (Synthroid) 50 mcg DAILY@0600 PO 05/19/17 06:00 06/12/17 05:50 Pantoprazole Sodium (Protonix) 40 mg BID PO 05/18/17 21:00 06/12/17 09:25 Pravastatin Sodium (Pravachol) 10 mg DAILY PO 05/19/17 09:00 06/12/17 09:26 Diphenhydramine HCl (Benadryl) 25 mg Q4H PRN PO FOR BLOOD PRODUCTS 05/19/17 01:30 06/11/17 11:49 Acetaminophen (Tylenol) 650 mg Q4H PRN PO BLOOD PRODUCTS OR FEVER>100.4 05/19/17 01:30 06/11/17 11:49 Furosemide (Lasix) 20 mg BID@09,18 PO 05/23/17 18:00 Hold 06/08/17 09:49 Patient Own Medication PT OWN MED: Proma... DAILY@06 PO 05/26/17 06:00 Hold 06/11/17 05:54 Potassium Chloride (KCl) 20 meq BID PO 05/28/17 21:00 Hold 06/08/17 09:49 Mupirocin 1 applic 1 applic BID EACH NARE 05/30/17 15:00 Hold 06/05/17 21:44 Filgrastim/ Dextrose (Neupogen Inj/ D5W Inj) 26.6 ml @ 106.4 mls/ hr DAILY@14 IV 05/31/17 14:00 06/11/17 14:06 Acyclovir (Zovirax 5% Oint (15 Gm)) 1 applic BID TOPICAL 06/01/17 15:00 06/12/17 09:27 Multi-Ingredient Mouthwash/Gargle 5 ml 5 ml QID SWISH-SWAL 06/03/17 13:00 06/12/17 09:24 Aztreonam 1000 mg/ Sodium Chloride 100 ml @ 200 mls/hr Q8H IV 06/04/17 12:00 06/12/17 04:33 Vancomycin HCl/ Sodium Chloride (Vancomycin Inj/ NS 250 ml Inj) 250 ml @ 250 mls/hr Q24H IV 06/05/17 05:00 06/12/17 05:51 Valacyclovir HCl (Valtrex) 1,000 mg Q8HR PO 06/04/17 14:15 06/12/17 05:50 Heparin Sodium (Porcine) (Heparin Central Flush) 200 units DAILY IV FLUSH 06/06/17 09:00 06/11/17 08:07 Sodium Chloride (NS Flush) 5 ml UNSCH PRN IV FLUSH SEE PROTOCOL TABLE 06/06/17 07:00 06/07/17 22:56 Heparin Sodium (Porcine) (Heparin Central Flush) 200 units UNSCH PRN IV FLUSH SEE PROTOCOL TABLE 06/06/17 07:00 06/07/17 22:56 Sodium Chloride (NS Flush) 5 ml UNSCH PRN IV FLUSH NEEDED 06/06/17 07:00 06/07/17 04:59 Sodium Chloride (NS Flush) 5 ml UNSCH PRN IV FLUSH SEE PROTOCOL TABLE 06/06/17 07:00 06/07/17 04:58 Methylprednisolone (Medrol) 40 mg DAILY PO 06/07/17 09:00 06/12/17 09:25 Amiodarone HCl (Cordarone) 200 mg BID PO 06/11/17 21:00 06/12/17 09:26 Objective Remarks GENERAL: Chronically ill appearing female sitting up in bed in no distress SKIN: Warm and dry. Rash improving. HEAD: Normocephalic. EYES: No injection or drainage. NECK: Supple, trachea midline. CARDIOVASCULAR: + S1/S2. Regular rhythm. RESPIRATORY: Breath sounds equal bilaterally. No accessory muscle use. GASTROINTESTINAL: Abdomen soft, non-tender, nondistended. EXTREMITIES: No cyanosis. No edema. NEUROLOGICAL: Awake and alert, normal speech. moving all extremities. Assessment/Plan Problem List: (1) Pancytopenia Status: Acute Plan: -- +aplastic anemia -- bone marrow biopsy results show aplastic anemia -- s/p ATG and cyclosporine Assessment 82-year-old female with anemia brought in for immunosuppressive treatment Plan 1. Transfuse one unit packed red blood cells for hemoglobin of 7.4 2. We were able to get Promacta from our pharmacy, however they state there was only one dose available, which she received this morning. 3. Discussed with daughter at bedside that we would need to deliver Promacta to her house so that she would be able to sign for it. 4. Monitor CBC 5. Continue steroids for serum sickness rash Attending Statement The exam, history, and the medical decision-making described in the above note were completed with the assistance of the mid-level provider. I reviewed and agree with the findings presented. I attest that I had a [id number] encounter with the patient on the same day, and personally performed and documented my assessment and findings in the medical record. I spoke with pharmacy and we will have the Promacta 150 mg daily within the next two days. This is based on the [place] journal of medicine article- - " Eltrombopag added to standard immunosuppression for aplastic anemia" The dose is 150 mg daily . patient will receive 1 unit of packed cells today. Merry Hebert Jun 12, 2017 09:38 Rajinder Roa MD Jun 12, 2017 15:34
[2017-06-12] MEDS: diphenhydrAMINE HCL 25 MG CAP PO PRN (12:08)
[2017-06-12] MEDS: ACETAMINOPHEN 325 MG TAB PO PRN (12:08)
[2017-06-12] MEDS: FILGRASTIM INJ 480 MCG in DEXTROSE 5% IN WATER INJ 25 ML IV SCH ×2 (15:54)
--- NOTE | 2017-06-12 16:19 | HHI.PR ---
Subjective Subjective Remarks Awake resting in bed Rash continues on extremities and trunk, much improved over the past 24 hours Heart rate 78, below 100 since midnight Up on side of bed and in room at intervals Getting bored, supportive care (Fernanda Monroy) Review of Systems Constitutional Constitutional: Fatigue, Weakness Constitutional Remarks 10 point ROS done positives noted, fever (Fernanda Monroy) Eyes Eyes: Itching (occasional, especially at night) (Fernanda Monroy) Ears and Nose Ears and Nose Remarks Generalized rash moving up on face (Fernanda Monroy) Throat Throat Remarks Scabbed one third of lower lip sore, dry (Fernanda Monroy) Pulmonary Respiratory: Shortness of Breath (, exertional) (Fernanda Monroy) GI/Abdomen GI/Abdominal Exam: Constipation GI/Abdomen Remarks Encourage by mouth fluids (Fernanda Monroy) Musculoskeletal MS: Weakness (Fernanda Monroy) Integumentary Skin Remarks rt. great toe (Fernanda Monroy) Psychiatric Psychiatric: Normal Mood (Fernanda Monroy) Vitals/Results Intake & Output 06/11/17 06/11/17 06/12/17 15:00 23:00 07:00 Intake Total 1800 ml 0 ml Balance 1800 ml 0 ml Intake Oral 1800 ml 0 ml # Voids 5 1 # Bowel Movements 1 0 Vital Signs Vital Signs Date Time Temp Pulse Resp B/P Pulse Ox O2 Delivery O2 Flow Rate FiO2 06/12/17 13:33 98.4 78 16 131/65 94 06/12/17 13:08 97.5 75 16 140/65 94 06/12/17 12:57 98.6 76 18 141/62 94 06/12/17 08:58 98.5 78 18 123/63 95 06/12/17 04:00 99.3 74 18 137/64 96 06/12/17 00:21 76 06/12/17 00:00 97.3 90 17 109/55 96 06/11/17 20:00 97.1 110 19 133/77 95 (Fernanda Monroy) CBC/BMP: 06/12/17 0430 06/12/17 0445 Lab Results Laboratory Tests Test 06/12/17 06/12/17 06/12/17 04:30 04:45 09:15 White Blood Count 2.2 TH/MM3 Red Blood Count 2.55 MIL/MM3 Hemoglobin 7.4 GM/DL Hematocrit 21.4 % Mean Corpuscular Volume 84.0 FL Mean Corpuscular Hemoglobin 29.0 PG Mean Corpuscular Hemoglobin 34.5 % Concent Red Cell Distribution Width 14.2 % Platelet Count 28 TH/MM3 Mean Platelet Volume 8.5 FL Neutrophils (%) (Auto) % Lymphocytes (%) (Auto) % Monocytes (%) (Auto) % Eosinophils (%) (Auto) % Basophils (%) (Auto) % Neutrophils # (Auto) TH/MM3 Lymphocytes # (Auto) TH/MM3 Monocytes # (Auto) TH/MM3 Eosinophils # (Auto) TH/MM3 Basophils # (Auto) TH/MM3 CBC Comment AUTO DIFF Differential Total Cells 100 Counted Neutrophils % (Manual) 4 % Lymphocytes % 96 % Neutrophils # (Manual) 0.1 TH/MM3 Differential Comment FINAL DIFF MANUAL Platelet Estimate LOW Platelet Morphology Comment NORMAL Red Cell Morphology Comment NORMAL Sodium Level 143 MEQ/L Potassium Level 3.5 MEQ/L Chloride Level 109 MEQ/L Carbon Dioxide Level 26.1 MEQ/L Anion Gap 8 MEQ/L Blood Urea Nitrogen 22 MG/DL Creatinine 0.64 MG/DL Estimat Glomerular Filtration 89 ML/MIN Rate Random Glucose 70 MG/DL Calcium Level 7.9 MG/DL Vancomycin Level Trough 12.5 MCG/ML Blood Type AB NEGATIVE Antibody Screen NEGATIVE Crossmatch Irradiated/Leukocyte-Reduced RBC Blood Bank Comment Imaging Remarks Last Impressions Chest X-Ray 05/31/17 0600 Signed Impressions: Service Date/Time: Wednesday, May 31, 2017 05:54 - CONCLUSION: 1. Chronic interstitial lung disease. 2. No new focal pulmonary infiltrates are demonstrated. Maurice Jean Baptiste MD Bone Biopsy CT 05/18/17 1456 Signed Impressions: Service Date/Time: Thursday, May 18, 2017 15:21 - CONCLUSION: 1. Uncomplicated CT guided bone marrow aspirate. 2. Uncomplicated CT guided bone marrow biopsy. Robert Cruz MD FACR PICC Line Insertion 05/18/17 0000 Signed Impressions: Service Date/Time: Thursday, May 18, 2017 13:31 - CONCLUSION: 1. Uncomplicated central venous Power PICC line placement. 2. The PICC line can be used immediately. Meliton Lerma MD Current Medications Administered Medications Medications (Trade) Dose Ordered Sig/José Route PRN Reason Start Time Stop Time Status Last Admin Dose Admin Sodium Chloride (NS Flush) 2 ml UNSCH PRN IV FLUSH FLUSH AFTER USING IV ACCESS 05/18/17 10:15 05/30/17 10:15 Sodium Chloride (NS Flush) 2 ml BID IV FLUSH 05/18/17 21:00 06/12/17 09:27 Ondansetron HCl (Zofran Inj) 4 mg Q6H PRN IVP NAUSEA OR VOMITING 05/18/17 10:15 06/08/17 04:56 Senna/Docusate Sodium (Rosalinda-Colace) 1 tab BID PO 05/18/17 21:00 06/11/17 19:50 Levothyroxine Sodium (Synthroid) 50 mcg DAILY@0600 PO 05/19/17 06:00 06/12/17 05:50 Pantoprazole Sodium (Protonix) 40 mg BID PO 05/18/17 21:00 06/12/17 09:25 Pravastatin Sodium (Pravachol) 10 mg DAILY PO 05/19/17 09:00 06/12/17 09:26 Diphenhydramine HCl (Benadryl) 25 mg Q4H PRN PO FOR BLOOD PRODUCTS 05/19/17 01:30 06/12/17 12:08 Acetaminophen (Tylenol) 650 mg Q4H PRN PO BLOOD PRODUCTS OR FEVER>100.4 05/19/17 01:30 06/12/17 12:08 Furosemide (Lasix) 20 mg BID@09,18 PO 05/23/17 18:00 Hold 06/08/17 09:49 Patient Own Medication PT OWN MED: Proma... DAILY@06 PO 05/26/17 06:00 Hold 06/11/17 05:54 Potassium Chloride (KCl) 20 meq BID PO 05/28/17 21:00 Hold 06/08/17 09:49 Mupirocin 1 applic 1 applic BID EACH NARE 05/30/17 15:00 Hold 06/05/17 21:44 Filgrastim/ Dextrose (Neupogen Inj/ D5W Inj) 26.6 ml @ 106.4 mls/ hr DAILY@14 IV 05/31/17 14:00 06/12/17 15:54 Acyclovir (Zovirax 5% Oint (15 Gm)) 1 applic BID TOPICAL 06/01/17 15:00 06/12/17 09:27 Multi-Ingredient Mouthwash/Gargle 5 ml 5 ml QID SWISH-SWAL 06/03/17 13:00 06/12/17 12:07 Aztreonam 1000 mg/ Sodium Chloride 100 ml @ 200 mls/hr Q8H IV 06/04/17 12:00 06/12/17 12:07 Vancomycin HCl/ Sodium Chloride (Vancomycin Inj/ NS 250 ml Inj) 250 ml @ 250 mls/hr Q24H IV 06/05/17 05:00 06/12/17 05:51 Valacyclovir HCl (Valtrex) 1,000 mg Q8HR PO 06/04/17 14:15 06/12/17 13:31 Heparin Sodium (Porcine) (Heparin Central Flush) 200 units DAILY IV FLUSH 06/06/17 09:00 06/11/17 08:07 Sodium Chloride (NS Flush) 5 ml UNSCH PRN IV FLUSH SEE PROTOCOL TABLE 06/06/17 07:00 06/07/17 22:56 Heparin Sodium (Porcine) (Heparin Central Flush) 200 units UNSCH PRN IV FLUSH SEE PROTOCOL TABLE 06/06/17 07:00 06/07/17 22:56 Sodium Chloride (NS Flush) 5 ml UNSCH PRN IV FLUSH NEEDED 06/06/17 07:00 06/07/17 04:59 Sodium Chloride (NS Flush) 5 ml UNSCH PRN IV FLUSH SEE PROTOCOL TABLE 06/06/17 07:00 06/07/17 04:58 Methylprednisolone (Medrol) 40 mg DAILY PO 06/07/17 09:00 06/12/17 09:25 Amiodarone HCl 200 mg 200 mg BID PO 06/11/17 21:00 06/12/17 09:26 Sodium Chloride (NS 250 ml Inj) 250 ml @ 15 mls/hr ONCE ONCE IV 06/12/17 08:45 06/13/17 01:24 06/12/17 12:07 (Eliana,Fernanda M. COOK RELIEF) Physical Exam General General Appearance: Well Developed, Comfortable (doesnt complain), Pale Appearance Remarks Macular rash, major improving over the past 24 hours, not itch today (Fernanda Monroy. [employer]) Eyes Eye Exam: Pupils Reactive (Fernanda Monroy. [employer]) Ears & Nose Ears & Nose Exam: Nasal Mucosa [place] (Fernanda Monroy. [employer]) Throat Throat Exam: Oral Mucosa [place] & Moist (Fernanda Monroy [employer]) Neck Neck Exam: Trachea Midline (Fernanda Monroy. [employer]) Pulmonary Resp Exam: Clear Bilaterally, Breath Sounds Equal, No Distress (Fernanda Monroy. [employer]) Cardiology CV Exam: Good Perfusion (placed on telemetry today), Tachycardia (Fernanda Monroy. [employer]) Gastrointestinal/Abdomen GI Exam: Soft, Non-Tender, Bowel Sounds Present, Non-Distended (Fernanda Monroy. [employer]) Hematologic/Lymphatic Heme Exam: Ecchymosis, Purpura (Fernanda Monroy. [employer]) Musculoskeletal MS Exam: Normal Tone (Fernanda Monroy. [employer]) Integumentary Skin Exam: Warm, Dry, Ulcer(s) (top lip with ulcerated area ) (Fernanda Monroy. [employer]) Extremeties Extremities Exam: No Edema, Pedal Pulses Palpable Extremeties Remarks Great toe right foot wound, previous ingrown toenail, edema (Fernanda Monroy. [employer]) Neurologic Neuro Exam: Alert, Awake, Oriented, Speech Clear, 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, Half Section Ironer Equal, 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 (Fernanda Monroy. [employer]) Psychiatric Psych Exam: Appropriate Responses (Fernanda Monroy. [employer]) PUD Prophylasis PUD Prophylaxis: Protonix (Fernanda Monroy. [employer]) Assessment/Plan Assessment/Plan Right hallux pain/ecchymosis/swelling, status post bedside procedure 11/20/2016 neutropenia 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, secondary to herpes simplex type I, improved Right external ear cellulitis, Leukopenia, Symptomatic anemia, Improved after transfusion Severe profound symptomatic thrombocytopenia, Uncontrolled aplastic anemia Acellular bone marrow per biopsy report Status post bone marrow biopsy 05/18/17 Recent diagnosis of atrial fibrillation Recent diagnosis of gastric erosions Maculopapular rash atrial fibrillation, uncontrolled Management appreciate ID input cultures, no growth blood cultures, continue Valtrex, Mupirocin cream for both nostrils Rash, generalized on trunk, resolving and responding to steroids HTN, medical mangement, oncology following, appreciate input, aplastic anemia Follow CBC, packed red blood cells 1 unit today per anemia 7.4, recheck labs in the morning, platelet count 28 today, received platelets on 06-11, leukopenia continues Continue steroids for serum sickness rash. Atrial fibrillation heart rate controlled today 78 and below 100 since midnight , Amniodarone to 200mg BID, Podiatry consult and appreciate input for right great toe, positive staph culture on 06-02, No evidence of gout, in rt. great toe wound No acute erythema, mild minimal edema, dressing clean dry and intact Discharge planning when okay with oncology D/W RN D/W Dr. Borjas, seen on her behalf D/W pt (Fernanda Monroy) Assessment/Plan continue current supportive care discussed with Fernanda MIJARES (Tayla Borjas MD) Fernanda Monroy Jun 12, 2017 16:19 Tayla Borjas MD Jun 12, 2017 16:55
[2017-06-13] VITALS (8 sets, daily range): BP systolic 124–138; BP diastolic 58–80; PULSE 72–106; RESP 12–18; TEMP 96.6–98.7; O2SAT 93–96
[2017-06-13] MEDS: CLOTRIMAZOLE 10 MG TROCHE BUCCAL SCH ×5 (05:00→20:35)
[2017-06-13] MEDS: AZTREONAM INJ 1,000 MG in SODIUM CHLORIDE 0.9% INJ 100 ML IV SCH ×3 (05:00→20:34)
[2017-06-13] MEDS: ELTROMBOPAG 50 MG TAB PO SCH (05:01)
[2017-06-13] MEDS: LEVOTHYROXINE SODIUM 50 MCG TAB PO SCH (05:01)
[2017-06-13] MEDS: valACYclovir HCL 500 MG TAB PO SCH ×3 (05:01→20:35)
[2017-06-13 05:52] LABS: HEMATOCRIT 23.7 % (35.0-46.0); MEAN CELL VOLUME 84.2 FL (80.0-100.0); MEAN CORPUSCULAR HEMOGLOBIN 29.6 PG (27.0-34.0); MEAN CORPUSCULAR HGB CONC 35.1 % (32.0-36.0); RED BLOOD COUNT 2.81 MIL/MM3 (4.00-5.30); RED CELL DISTRIBUTION WIDTH 14.3 % (11.6-17.2); WHITE BLOOD COUNT 2.1 TH/MM3 (4.0-11.0)
[2017-06-13 06:06] LABS: HEMO FLAGS AUTO DIFF
[2017-06-13] MEDS: VANCOMYCIN 1,000 MG/NS 250 ML IV SCH ×2 (06:07)
[2017-06-13 06:08] LABS: PLATELET COUNT 15 TH/MM3 (150-450)
[2017-06-13 06:52] LABS: BANDS 2 % (0-6); NEUTROPHIL # MANUAL DIFF 0.1 TH/MM3 (1.8-7.7); POLYS (SEG NEUTROPHILS) 1 % (16-70); WBC DIFF SAMPLE 100
[2017-06-13 06:53] LABS: OVALOCYTES 1+ (NORMAL); PLATELET ESTIMATE SMEAR LOW (NORMAL); PLATELET MORPHOLOGY NORMAL (NORMAL); SCAN/DIFF FINAL DIFF MANUAL
[2017-06-13] MEDS: DOCUSATE SODIUM 50 MG/SENNA 8.6 MG TAB PO SCH ×2 (09:00→20:35)
[2017-06-13] MEDS: NYSTAT/DIPHENHY/LIDO MOUTHWASH (Adult) 120ML SWISH-SWAL SCH ×4 (09:00→20:34)
--- NOTE | 2017-06-13 09:27 | HHI.PR ---
Subjective Subjective Remarks rash improved no fever afib on tele, HR 130s at times, now 90s no cp no sob doesn't want tele monitor eating okay daughter at [facility]sd Review of Systems Constitutional Constitutional Remarks 12 point ros completed, negative except as noted above Vitals/Results Intake & Output 06/12/17 06/12/17 06/13/17 14:59 22:59 06:59 Intake Total 1030 ml 240 ml 60 ml Balance 1030 ml 240 ml 60 ml Intake Oral 480 ml 240 ml 60 ml IV Total 250 ml Packed Cells 300 ml # Voids 2 1 # Bowel Movements 0 0 Vital Signs Vital Signs Date Time Temp Pulse Resp B/P Pulse Ox O2 Delivery O2 Flow Rate FiO2 06/13/17 08:00 98.4 99 14 124/64 95 06/13/17 04:00 97.2 76 18 130/61 94 06/13/17 00:00 97.8 88 17 138/64 93 06/12/17 20:39 70 06/12/17 20:00 97.3 101 17 140/87 95 06/12/17 17:04 97.7 68 16 133/65 92 06/12/17 17:00 97.7 68 16 133/65 92 06/12/17 16:22 67 06/12/17 13:33 98.4 78 16 131/65 94 06/12/17 13:08 97.5 75 16 140/65 94 06/12/17 12:57 98.6 76 18 141/62 94 06/12/17 12:27 76 CBC/BMP: 06/13/17 0500 06/12/17 0445 Lab Results Laboratory Tests Test 06/13/17 05:00 White Blood Count 2.1 TH/MM3 Red Blood Count 2.81 MIL/MM3 Hemoglobin 8.3 GM/DL Hematocrit 23.7 % Mean Corpuscular Volume 84.2 FL Mean Corpuscular Hemoglobin 29.6 PG Mean Corpuscular Hemoglobin 35.1 % Concent Red Cell Distribution Width 14.3 % Platelet Count 15 TH/MM3 Mean Platelet Volume 7.8 FL Neutrophils (%) (Auto) % Lymphocytes (%) (Auto) % Monocytes (%) (Auto) % Eosinophils (%) (Auto) % Basophils (%) (Auto) % Neutrophils # (Auto) TH/MM3 Lymphocytes # (Auto) TH/MM3 Monocytes # (Auto) TH/MM3 Eosinophils # (Auto) TH/MM3 Basophils # (Auto) TH/MM3 CBC Comment AUTO DIFF Differential Total Cells 100 Counted Neutrophils % (Manual) 1 % Band Neutrophils % 2 % Lymphocytes % 97 % Neutrophils # (Manual) 0.1 TH/MM3 Differential Comment FINAL DIFF MANUAL Platelet Estimate LOW Platelet Morphology Comment NORMAL Ovalocytes 1+ Physical Exam General General Appearance: Well Developed, No Acute Distress, Comfortable, Pale Eyes Eye Exam: Pupils Equal, Pupils Reactive Ears & Nose Ears & Nose Exam: Nasal Mucosa [place] Throat Throat Exam: Oral Mucosa [place] & Moist Throat Remarks herpes lesion top lip Neck Neck Exam: Trachea Midline Pulmonary Resp Exam: Clear Bilaterally, Breath Sounds Equal, No Distress Cardiology CV Exam: Good Perfusion, Irregular, Tachycardia Gastrointestinal/Abdomen GI Exam: Soft, Non-Tender, Bowel Sounds Present, Non-Distended Hematologic/Lymphatic Heme Exam: Ecchymosis Musculoskeletal MS Exam: Normal Tone MS Remarks erythematous, discoloration both legs, mild edema Integumentary Skin Exam: Warm, Dry Skin Remarks rash markedly improved, not more brownish discoloration palmar rash improved discoloration both legs, erythematous/brownish Extremeties Extremities Exam: No Edema, Pedal Pulses Palpable Neurologic Neuro Exam: Alert, Awake, Oriented, Speech Clear, 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, Gis Analyst Equal, 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 Psychiatric Psych Exam: Appropriate Responses PUD Prophylasis PUD Prophylaxis: Protonix Assessment/Plan Assessment/Plan Right hallux pain/ecchymosis/swelling, status post bedside procedure 11/20/2016 pancytopenia 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, secondary to herpes simplex type I, improved Right external ear cellulitis, Leukopenia, No evidence of gout Symptomatic anemia, Improved after transfusion Severe profound symptomatic thrombocytopenia, given platelets again today Uncontrolled aplastic anemia Acellular bone marrow per biopsy report Status post bone marrow biopsy 05/18/17 Recent diagnosis of atrial fibrillation Recent diagnosis of gastric erosions Maculopapular rash, poss drug induced, Cefepime dc Management Podiatry following wound culture staph hominis appreciate ID input Topical Zovirax to upper lip Follow blood culture reports Mupirocin cream for both nostrils Acyclovir dc, now on Valtrex On Vancomycin Cefepime dc due to rash Continue with Azactam Rash, Poss drug eruption resolving BP control, continue home meds Lisinopril for blood pressure control Lasix 20 mg twice a day oncology following continue neupogen HH stable 8.3/23.7 Plat 15 WBC 1.4 S/P plat/PRBC May need plat, defer to hematology bone marrow biopsy results show aplastic anemia s/p ATG and cyclosporine started on Promacta 06/12 afib RVR, received dig Had Echo, EF okay continue Amiodarone 200 mg po bid occ. elevations in HR especially at night, okay this morning cardiology signed off Replace K Labs in am Condition guarded DC planning in progress. D/W RN D/W D/W pt This patient was seen by myself and Dr. Swanson, this note is written on her behalf. Sofia Morris Jun 13, 2017 09:27
[2017-06-13] MEDS ORDERED: POTASSIUM CHLORIDE 25 MEQ EFFERVESCENT TAB PO ONE (09:30)
[2017-06-13] MEDS: methylPREDNISolone 4 MG TAB PO SCH (09:44)
[2017-06-13] MEDS: PANTOPRAZOLE SOD 40 MG DELAYED RELEASE TAB PO SCH ×2 (09:44→20:34)
[2017-06-13] MEDS: PRAVASTATIN SOD 10 MG TAB PO SCH (09:44)
[2017-06-13] MEDS: AMIODARONE 200 MG TAB PO SCH ×2 (09:44→20:34)
[2017-06-13] MEDS: ACYCLOVIR 5% OINT 15 APPLIC/15 GM TUBE TOPICAL SCH ×2 (09:45→20:35)
[2017-06-13] MEDS: SODIUM CHLORIDE 0.9% FLUSH 10 ML FLUSH IV FLUSH SCH ×2 (09:53→20:41)
[2017-06-13] MEDS: PICC Daily Heparin 100 unit/mL Lock Flush IV FLUSH SCH (09:54)
--- NOTE | 2017-06-13 13:01 | PD.ONC.PN ---
Subjective Subjective Remarks Afebrile overnight. Patient resting in bed in nad. Rash significantly improved. Feeling tired. Objective Data Date Time Temp Pulse Resp B/P Pulse Ox O2 Delivery O2 Flow Rate FiO2 06/13/17 08:00 98.4 99 14 124/64 95 06/13/17 04:00 97.2 76 18 130/61 94 06/13/17 00:00 97.8 88 17 138/64 93 06/12/17 20:39 70 06/12/17 20:00 97.3 101 17 140/87 95 06/12/17 17:04 97.7 68 16 133/65 92 06/12/17 17:00 97.7 68 16 133/65 92 06/12/17 16:22 67 06/12/17 13:33 98.4 78 16 131/65 94 06/12/17 13:08 97.5 75 16 140/65 94 06/12/17 12:57 98.6 76 18 141/62 94 06/13/17 06/13/17 06/13/17 07:00 15:00 23:00 Intake Total 60 ml Balance 60 ml Result Diagram: 06/13/17 0500 06/12/17 0445 Laboratory Results Laboratory Tests Test 06/13/17 05:00 White Blood Count 2.1 TH/MM3 Red Blood Count 2.81 MIL/MM3 Hemoglobin 8.3 GM/DL Hematocrit 23.7 % Mean Corpuscular Volume 84.2 FL Mean Corpuscular Hemoglobin 29.6 PG Mean Corpuscular Hemoglobin 35.1 % Concent Red Cell Distribution Width 14.3 % Platelet Count 15 TH/MM3 Mean Platelet Volume 7.8 FL Neutrophils (%) (Auto) % Lymphocytes (%) (Auto) % Monocytes (%) (Auto) % Eosinophils (%) (Auto) % Basophils (%) (Auto) % Neutrophils # (Auto) TH/MM3 Lymphocytes # (Auto) TH/MM3 Monocytes # (Auto) TH/MM3 Eosinophils # (Auto) TH/MM3 Basophils # (Auto) TH/MM3 CBC Comment AUTO DIFF Differential Total Cells 100 Counted Neutrophils % (Manual) 1 % Band Neutrophils % 2 % Lymphocytes % 97 % Neutrophils # (Manual) 0.1 TH/MM3 Differential Comment FINAL DIFF MANUAL Platelet Estimate LOW Platelet Morphology Comment NORMAL Ovalocytes 1+ Administered Medications Medications (Trade) Dose Ordered Sig/José Route PRN Reason Start Time Stop Time Status Last Admin Dose Admin Sodium Chloride (NS Flush) 2 ml UNSCH PRN IV FLUSH FLUSH AFTER USING IV ACCESS 05/18/17 10:15 05/30/17 10:15 Sodium Chloride (NS Flush) 2 ml BID IV FLUSH 05/18/17 21:00 06/13/17 09:53 Ondansetron HCl (Zofran Inj) 4 mg Q6H PRN IVP NAUSEA OR VOMITING 05/18/17 10:15 06/08/17 04:56 Senna/Docusate Sodium (Rosalinda-Colace) 1 tab BID PO 05/18/17 21:00 06/11/17 19:50 Levothyroxine Sodium (Synthroid) 50 mcg DAILY@0600 PO 05/19/17 06:00 06/13/17 05:01 Pantoprazole Sodium (Protonix) 40 mg BID PO 05/18/17 21:00 06/13/17 09:44 Pravastatin Sodium (Pravachol) 10 mg DAILY PO 05/19/17 09:00 06/13/17 09:44 Diphenhydramine HCl (Benadryl) 25 mg Q4H PRN PO FOR BLOOD PRODUCTS 05/19/17 01:30 06/12/17 12:08 Acetaminophen (Tylenol) 650 mg Q4H PRN PO BLOOD PRODUCTS OR FEVER>100.4 05/19/17 01:30 06/12/17 12:08 Furosemide (Lasix) 20 mg BID@09,18 PO 05/23/17 18:00 Hold 06/08/17 09:49 Potassium Chloride (KCl) 20 meq BID PO 05/28/17 21:00 Hold 06/08/17 09:49 Mupirocin 1 applic 1 applic BID EACH NARE 05/30/17 15:00 Hold 06/05/17 21:44 Filgrastim/ Dextrose (Neupogen Inj/ D5W Inj) 26.6 ml @ 106.4 mls/ hr DAILY@14 IV 05/31/17 14:00 06/12/17 15:54 Acyclovir (Zovirax 5% Oint (15 Gm)) 1 applic BID TOPICAL 06/01/17 15:00 06/13/17 09:45 Multi-Ingredient Mouthwash/Gargle 5 ml 5 ml QID SWISH-SWAL 06/03/17 13:00 06/12/17 20:03 Aztreonam 1000 mg/ Sodium Chloride 100 ml @ 200 mls/hr Q8H IV 06/04/17 12:00 06/13/17 05:00 Vancomycin HCl/ Sodium Chloride (Vancomycin Inj/ NS 250 ml Inj) 250 ml @ 250 mls/hr Q24H IV 06/05/17 05:00 06/13/17 06:07 Valacyclovir HCl (Valtrex) 1,000 mg Q8HR PO 06/04/17 14:15 06/13/17 05:01 Heparin Sodium (Porcine) (Heparin Central Flush) 200 units DAILY IV FLUSH 06/06/17 09:00 06/13/17 09:54 Sodium Chloride (NS Flush) 5 ml UNSCH PRN IV FLUSH SEE PROTOCOL TABLE 06/06/17 07:00 06/07/17 22:56 Heparin Sodium (Porcine) (Heparin Central Flush) 200 units UNSCH PRN IV FLUSH SEE PROTOCOL TABLE 06/06/17 07:00 06/07/17 22:56 Sodium Chloride (NS Flush) 5 ml UNSCH PRN IV FLUSH NEEDED 06/06/17 07:00 06/07/17 04:59 Sodium Chloride (NS Flush) 5 ml UNSCH PRN IV FLUSH SEE PROTOCOL TABLE 06/06/17 07:00 06/07/17 04:58 Methylprednisolone (Medrol) 40 mg DAILY PO 06/07/17 09:00 06/13/17 09:44 Amiodarone HCl (Cordarone) 200 mg BID PO 06/11/17 21:00 06/13/17 09:44 Eltrombopag (Promacta) 150 mg DAILY@06 PO 06/13/17 06:00 06/13/17 05:01 Objective Remarks GENERAL: Pleasant female upright in bed in nad. 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 a few petechiae noted on legs. rash gone. HEAD: Normocephalic. EYES: No injection or drainage. NECK: Supple, trachea midline. CARDIOVASCULAR: +S1/S2 RESPIRATORY: Breath sounds equal bilaterally. No accessory muscle use. GASTROINTESTINAL: Abdomen soft, non-tender, nondistended. EXTREMITIES: No cyanosis. NEUROLOGICAL: aox3. normal speech Assessment/Plan Assessment 82-year-old female with aplastic anemia s/p ATG and cyclosporine. Plan 1. no need for transfusion today. monitor CBC 2. thrilled that her rash is resolving. will start to taper her steroids tomorrow. 3. awaiting Promacta delivery to daughter Lilian's house. Once Lilian receives it she will bring it in 4. continue antibiotics until bone marrow recover. Cecilia Hughes Jun 13, 2017 13:01
[2017-06-13] MEDS: FILGRASTIM INJ 480 MCG in DEXTROSE 5% IN WATER INJ 25 ML IV SCH ×2 (15:03)
[2017-06-14] VITALS (8 sets, daily range): BP systolic 107–154; BP diastolic 54–68; PULSE 53–79; RESP 16–20; TEMP 96.3–98.2; O2SAT 93–96
[2017-06-14] MEDS: AZTREONAM INJ 1,000 MG in SODIUM CHLORIDE 0.9% INJ 100 ML IV SCH ×3 (03:45→20:18)
[2017-06-14] MEDS: VANCOMYCIN 1,000 MG/NS 250 ML IV SCH ×2 (04:31)
[2017-06-14] MEDS: CLOTRIMAZOLE 10 MG TROCHE BUCCAL SCH ×5 (05:37→20:18)
[2017-06-14] MEDS: LEVOTHYROXINE SODIUM 50 MCG TAB PO SCH (05:37)
[2017-06-14] MEDS: valACYclovir HCL 500 MG TAB PO SCH ×3 (05:37→20:18)
[2017-06-14] MEDS: ELTROMBOPAG 50 MG TAB PO SCH (05:37)
[2017-06-14 07:38] LABS: HEMATOCRIT 23.4 % (35.0-46.0); MEAN CELL VOLUME 84.9 FL (80.0-100.0); MEAN CORPUSCULAR HEMOGLOBIN 29.1 PG (27.0-34.0); MEAN CORPUSCULAR HGB CONC 34.3 % (32.0-36.0); RED BLOOD COUNT 2.76 MIL/MM3 (4.00-5.30); RED CELL DISTRIBUTION WIDTH 14.4 % (11.6-17.2); WHITE BLOOD COUNT 2.2 TH/MM3 (4.0-11.0)
[2017-06-14 07:42] LABS: HEMO FLAGS AUTO DIFF
[2017-06-14 07:47] LABS: PLATELET COUNT 9 TH/MM3 (150-450)
[2017-06-14] MEDS ORDERED: SODIUM CHLOR 0.9% 250 ML INJ 250 ML IV ONE (08:00)
[2017-06-14 08:54] LABS: POLYS (SEG NEUTROPHILS) 2 % (16-70); WBC DIFF SAMPLE 100
[2017-06-14 08:55] LABS: PLATELET ESTIMATE SMEAR LOW (NORMAL); PLATELET MORPHOLOGY NORMAL (NORMAL); SCAN/DIFF FINAL DIFF MANUAL
[2017-06-14] MEDS: DOCUSATE SODIUM 50 MG/SENNA 8.6 MG TAB PO SCH ×2 (09:00→20:21)
[2017-06-14] MEDS: ACYCLOVIR 5% OINT 15 APPLIC/15 GM TUBE TOPICAL SCH ×2 (09:00→20:21)
[2017-06-14] MEDS: PANTOPRAZOLE SOD 40 MG DELAYED RELEASE TAB PO SCH ×2 (09:23→20:18)
[2017-06-14] MEDS: PRAVASTATIN SOD 10 MG TAB PO SCH (09:23)
[2017-06-14] MEDS: methylPREDNISolone 4 MG TAB PO SCH (09:25)
[2017-06-14] MEDS: AMIODARONE 200 MG TAB PO SCH ×2 (09:25→20:18)
[2017-06-14] MEDS: NYSTAT/DIPHENHY/LIDO MOUTHWASH (Adult) 120ML SWISH-SWAL SCH ×4 (09:26→20:17)
[2017-06-14] MEDS: SODIUM CHLORIDE 0.9% FLUSH 10 ML FLUSH IV FLUSH SCH ×2 (09:26→20:21)
[2017-06-14] MEDS: PICC Daily Heparin 100 unit/mL Lock Flush IV FLUSH SCH (09:28)
[2017-06-14] MEDS: ACETAMINOPHEN 325 MG TAB PO PRN (11:52)
[2017-06-14] MEDS: diphenhydrAMINE HCL 25 MG CAP PO PRN (11:52)
--- NOTE | 2017-06-14 12:10 | PD.ONC.PN ---
Subjective Subjective Remarks Afebrile overnight. Patient feeling good today. Rash improved. noticed some swelling in extremities. Objective Data Date Time Temp Pulse Resp B/P Pulse Ox O2 Delivery O2 Flow Rate FiO2 06/14/17 08:00 97.3 79 18 154/67 95 06/14/17 04:00 98.2 63 18 135/63 95 06/14/17 04:00 66 06/14/17 00:00 69 06/14/17 00:00 97.5 53 17 107/54 96 06/13/17 20:00 96.6 101 18 138/80 96 06/13/17 20:00 90 06/13/17 16:25 76 06/13/17 16:00 98.7 72 12 124/58 94 06/13/17 12:32 80 Result Diagram: 06/14/17 0539 06/12/17 0445 Laboratory Results Laboratory Tests Test 06/14/17 06/14/17 05:39 08:12 White Blood Count 2.2 TH/MM3 Red Blood Count 2.76 MIL/MM3 Hemoglobin 8.0 GM/DL Hematocrit 23.4 % Mean Corpuscular Volume 84.9 FL Mean Corpuscular Hemoglobin 29.1 PG Mean Corpuscular Hemoglobin 34.3 % Concent Red Cell Distribution Width 14.4 % Platelet Count 9 TH/MM3 Mean Platelet Volume 8.4 FL Neutrophils (%) (Auto) % Lymphocytes (%) (Auto) % Monocytes (%) (Auto) % Eosinophils (%) (Auto) % Basophils (%) (Auto) % Neutrophils # (Auto) TH/MM3 Lymphocytes # (Auto) TH/MM3 Monocytes # (Auto) TH/MM3 Eosinophils # (Auto) TH/MM3 Basophils # (Auto) TH/MM3 CBC Comment AUTO DIFF Differential Total Cells 100 Counted Neutrophils % (Manual) 2 % Lymphocytes % 98 % Neutrophils # (Manual) 0.0 TH/MM3 Differential Comment FINAL DIFF MANUAL Platelet Estimate LOW Platelet Morphology Comment NORMAL Red Cell Morphology Comment NORMAL Blood Bank Comment Administered Medications Medications (Trade) Dose Ordered Sig/José Route PRN Reason Start Time Stop Time Status Last Admin Dose Admin Sodium Chloride (NS Flush) 2 ml UNSCH PRN IV FLUSH FLUSH AFTER USING IV ACCESS 05/18/17 10:15 05/30/17 10:15 Sodium Chloride (NS Flush) 2 ml BID IV FLUSH 05/18/17 21:00 06/14/17 09:26 Ondansetron HCl (Zofran Inj) 4 mg Q6H PRN IVP NAUSEA OR VOMITING 05/18/17 10:15 06/08/17 04:56 Senna/Docusate Sodium (Rosalinda-Colace) 1 tab BID PO 05/18/17 21:00 06/11/17 19:50 Levothyroxine Sodium (Synthroid) 50 mcg DAILY@0600 PO 05/19/17 06:00 06/14/17 05:37 Pantoprazole Sodium (Protonix) 40 mg BID PO 05/18/17 21:00 06/14/17 09:23 Pravastatin Sodium (Pravachol) 10 mg DAILY PO 05/19/17 09:00 06/14/17 09:23 Diphenhydramine HCl (Benadryl) 25 mg Q4H PRN PO FOR BLOOD PRODUCTS 05/19/17 01:30 06/14/17 11:52 Acetaminophen (Tylenol) 650 mg Q4H PRN PO BLOOD PRODUCTS OR FEVER>100.4 05/19/17 01:30 06/14/17 11:52 Furosemide (Lasix) 20 mg BID@09,18 PO 05/23/17 18:00 Hold 06/08/17 09:49 Potassium Chloride (KCl) 20 meq BID PO 05/28/17 21:00 Hold 06/08/17 09:49 Mupirocin 1 applic 1 applic BID EACH NARE 05/30/17 15:00 Hold 06/05/17 21:44 Filgrastim/ Dextrose (Neupogen Inj/ D5W Inj) 26.6 ml @ 106.4 mls/ hr DAILY@14 IV 05/31/17 14:00 06/13/17 15:03 Acyclovir (Zovirax 5% Oint (15 Gm)) 1 applic BID TOPICAL 06/01/17 15:00 06/13/17 09:45 Multi-Ingredient Mouthwash/Gargle 5 ml 5 ml QID SWISH-SWAL 06/03/17 13:00 06/14/17 09:26 Aztreonam 1000 mg/ Sodium Chloride 100 ml @ 200 mls/hr Q8H IV 06/04/17 12:00 06/14/17 03:45 Vancomycin HCl/ Sodium Chloride (Vancomycin Inj/ NS 250 ml Inj) 250 ml @ 250 mls/hr Q24H IV 06/05/17 05:00 06/14/17 04:31 Valacyclovir HCl (Valtrex) 1,000 mg Q8HR PO 06/04/17 14:15 06/14/17 05:37 Heparin Sodium (Porcine) (Heparin Central Flush) 200 units DAILY IV FLUSH 06/06/17 09:00 06/14/17 09:28 Sodium Chloride (NS Flush) 5 ml UNSCH PRN IV FLUSH SEE PROTOCOL TABLE 06/06/17 07:00 06/07/17 22:56 Heparin Sodium (Porcine) (Heparin Central Flush) 200 units UNSCH PRN IV FLUSH SEE PROTOCOL TABLE 06/06/17 07:00 06/07/17 22:56 Sodium Chloride (NS Flush) 5 ml UNSCH PRN IV FLUSH NEEDED 06/06/17 07:00 06/07/17 04:59 Sodium Chloride (NS Flush) 5 ml UNSCH PRN IV FLUSH SEE PROTOCOL TABLE 06/06/17 07:00 06/07/17 04:58 Amiodarone HCl (Cordarone) 200 mg BID PO 06/11/17 21:00 06/14/17 09:25 Eltrombopag 150 mg 150 mg DAILY@06 PO 06/13/17 06:00 06/14/17 05:37 Sodium Chloride (NS 250 ml Inj) 250 ml @ 15 mls/hr ONCE ONCE IV 06/14/17 08:00 06/15/17 00:39 06/14/17 09:28 Objective Remarks GENERAL: Pleasant female sitting up in bed in nad. 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 HEAD: Normocephalic. EYES: No injection or drainage. NECK: Supple, trachea midline. CARDIOVASCULAR: +S1/S2 RESPIRATORY: Breath sounds equal bilaterally. No accessory muscle use. GASTROINTESTINAL: Abdomen soft, non-tender, nondistended. EXTREMITIES: No cyanosis. mild edema, ble NEUROLOGICAL: awake and alert, normal speech. moving extremities. Assessment/Plan Assessment 82-year-old female with aplastic anemia s/p ATG and cyclosporine. Plan 1. give 1 unit irradiated platelets 2. reduce methylprednisolone to 20mg PO daily 3. continue Promacta 4. hopefully her bone marrow will recover soon. 5. continue abx until bone marrow recovery Cecilia Hughes Jun 14, 2017 12:10
--- NOTE | 2017-06-14 13:29 | HHI.IDPN ---
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 Vital Signs Date Time Temp Pulse Resp B/P Pulse Ox O2 Delivery O2 Flow Rate FiO2 06/14/17 12:45 96.4 68 18 127/59 95 06/14/17 12:19 97.9 68 20 144/68 93 06/14/17 08:00 97.3 79 18 154/67 95 06/14/17 04:00 98.2 63 18 135/63 95 06/14/17 04:00 66 06/14/17 00:00 69 06/14/17 00:00 97.5 53 17 107/54 96 06/13/17 20:00 96.6 101 18 138/80 96 06/13/17 20:00 90 06/13/17 16:25 76 06/13/17 16:00 98.7 72 12 124/58 94 06/13/17 06/13/17 06/14/17 15:00 23:00 07:00 Intake Total 747 ml Balance 747 ml Intake Oral 582 ml IV Total 165 ml # Voids 4 2 # Bowel Movements 0 . Laboratory Tests Test 06/13/17 06/14/17 05:00 05:39 White Blood Count 2.1 TH/MM3 2.2 TH/MM3 Red Blood Count 2.81 MIL/MM3 2.76 MIL/MM3 Hemoglobin 8.3 GM/DL 8.0 GM/DL Hematocrit 23.7 % 23.4 % Mean Corpuscular Volume 84.2 FL 84.9 FL Mean Corpuscular Hemoglobin 29.6 PG 29.1 PG Mean Corpuscular Hemoglobin 35.1 % 34.3 % Concent Red Cell Distribution Width 14.3 % 14.4 % Platelet Count 15 TH/MM3 9 TH/MM3 Mean Platelet Volume 7.8 FL 8.4 FL Neutrophils (%) (Auto) % % Lymphocytes (%) (Auto) % % Monocytes (%) (Auto) % % Eosinophils (%) (Auto) % % Basophils (%) (Auto) % % Neutrophils # (Auto) TH/MM3 TH/MM3 Lymphocytes # (Auto) TH/MM3 TH/MM3 Monocytes # (Auto) TH/MM3 TH/MM3 Eosinophils # (Auto) TH/MM3 TH/MM3 Basophils # (Auto) TH/MM3 TH/MM3 CBC Comment AUTO DIFF AUTO DIFF Differential Total Cells 100 100 Counted Neutrophils % (Manual) 1 % 2 % Band Neutrophils % 2 % Lymphocytes % 97 % 98 % Neutrophils # (Manual) 0.1 TH/MM3 0.0 TH/MM3 Differential Comment FINAL DIFF FINAL DIFF MANUAL MANUAL Platelet Estimate LOW LOW Platelet Morphology Comment NORMAL NORMAL Ovalocytes 1+ Red Cell Morphology Comment NORMAL Imaging Chest X-Ray 05/31/17 0600 Signed Impressions: Service Date/Time: Wednesday, May 31, 2017 05:54 - CONCLUSION: 1. Chronic interstitial lung disease. 2. No new focal pulmonary infiltrates are demonstrated. Maurice Jean aBptiste MD Bone Biopsy CT 05/18/17 1456 Signed Impressions: Service Date/Time: Thursday, May 18, 2017 15:21 - CONCLUSION: 1. Uncomplicated CT guided bone marrow aspirate. 2. Uncomplicated CT guided bone marrow biopsy. Robert Cruz MD FACR PICC Line Insertion 05/18/17 0000 Signed Impressions: Service Date/Time: Thursday, May 18, 2017 13:31 - CONCLUSION: 1. Uncomplicated central venous Power PICC line placement. 2. The PICC line can be used immediately. Meliton Lerma MD Physical Exam CONSTITUTIONAL/GENERAL: Awake and alert, NAD SKIN: Rash is better, has blanching macules now mostly in UE and LE, improving EYES: Pupils equal and round and reactive. . No scleral icterus. No injection or drainage. ENT: Nose without bleeding or purulent drainage. Oral mucosae without visible erythema, exudates, masses, or lesions. Lesion lip better CARDIOVASCULAR: Regular rate and rhythm without murmurs, gallops, or rubs. No JVD. RESPIRATORY/CHEST: Clear to auscultation. Breath sounds equal bilaterally. No wheezes, rales, or rhonchi. GASTROINTESTINAL: Abdomen soft, non-tender, nondistended. No hepato-splenomegaly , or palpable masses. Bowel sounds present. MUSCULOSKELETAL: Extremities without clubbing, cyanosis, R foot edema. R hallux with dry clean wound NEUROLOGICAL: Awake and alert. Motor and sensory grossly within normal limits. Follows commands. Clear speech. Moves all extremities. PSYCHIATRIC: calm and cooperative Assessment & Plan Remarks Aplastic anemia, pancytopenia Severe neutropenia, ANC of 0, refractory Severe thrombocytopenia R pinna cellulits - resolved Upper lip crusted lesion - slowly improving on acyclovir - HSV1+ Fever, low grade, resolved R hallux paronychia with ascending mild cellulitis - clx with Staph hominis, cw skin colonization Skin rash mostly cw allergic reaction ? cefepime, improving REC's: cont vanco x 2 weeks cont azactam x 2 weeks cont valtrex repeat BC if spikes avoid cephalosporins D/W Lynn More MD Jun 14, 2017 13:29
--- NOTE | 2017-06-14 13:31 | HHI.PR ---
Subjective Subjective Remarks rash improved no fever Heart rate better control, 80s 90s Chest pain Or shortness of breath Eating well No Diarrhea Review of Systems Constitutional Constitutional Remarks 12 point ros completed, negative except as noted above Hematologic/Lymphatic Heme/Lymph: Ecchymosis Vitals/Results Intake & Output 06/13/17 06/13/17 06/14/17 15:00 23:00 07:00 Intake Total 747 ml Balance 747 ml Intake Oral 582 ml IV Total 165 ml # Voids 4 2 # Bowel Movements 0 Vital Signs Vital Signs Date Time Temp Pulse Resp B/P Pulse Ox O2 Delivery O2 Flow Rate FiO2 06/14/17 12:45 96.4 68 18 127/59 95 06/14/17 12:19 97.9 68 20 144/68 93 06/14/17 08:00 97.3 79 18 154/67 95 06/14/17 04:00 98.2 63 18 135/63 95 06/14/17 04:00 66 06/14/17 00:00 69 06/14/17 00:00 97.5 53 17 107/54 96 06/13/17 20:00 96.6 101 18 138/80 96 06/13/17 20:00 90 06/13/17 16:25 76 06/13/17 16:00 98.7 72 12 124/58 94 CBC/BMP: 06/14/17 0539 06/12/17 0445 Lab Results Laboratory Tests Test 06/14/17 06/14/17 05:39 08:12 White Blood Count 2.2 TH/MM3 Red Blood Count 2.76 MIL/MM3 Hemoglobin 8.0 GM/DL Hematocrit 23.4 % Mean Corpuscular Volume 84.9 FL Mean Corpuscular Hemoglobin 29.1 PG Mean Corpuscular Hemoglobin 34.3 % Concent Red Cell Distribution Width 14.4 % Platelet Count 9 TH/MM3 Mean Platelet Volume 8.4 FL Neutrophils (%) (Auto) % Lymphocytes (%) (Auto) % Monocytes (%) (Auto) % Eosinophils (%) (Auto) % Basophils (%) (Auto) % Neutrophils # (Auto) TH/MM3 Lymphocytes # (Auto) TH/MM3 Monocytes # (Auto) TH/MM3 Eosinophils # (Auto) TH/MM3 Basophils # (Auto) TH/MM3 CBC Comment AUTO DIFF Differential Total Cells 100 Counted Neutrophils % (Manual) 2 % Lymphocytes % 98 % Neutrophils # (Manual) 0.0 TH/MM3 Differential Comment FINAL DIFF MANUAL Platelet Estimate LOW Platelet Morphology Comment NORMAL Red Cell Morphology Comment NORMAL Blood Bank Comment Physical Exam General General Appearance: Well Developed, No Acute Distress, Comfortable, Pale Eyes Eye Exam: Pupils Equal, Pupils Reactive Ears & Nose Ears & Nose Exam: Nasal Mucosa Amenia Throat Throat Exam: Oral Mucosa Amenia & Moist Throat Remarks herpes lesion top lip Neck Neck Exam: Trachea Midline Pulmonary Resp Exam: Clear Bilaterally, Breath Sounds Equal, No Distress Cardiology CV Exam: Good Perfusion, Irregular, Tachycardia Gastrointestinal/Abdomen GI Exam: Soft, Non-Tender, Bowel Sounds Present, Non-Distended Hematologic/Lymphatic Heme Exam: Ecchymosis Musculoskeletal MS Exam: Normal Tone MS Remarks erythematous, discoloration both legs, mild edema Integumentary Skin Exam: Warm, Dry Skin Remarks rash markedly improved, not more brownish discoloration palmar rash improved discoloration both legs, erythematous/brownish Extremeties Extremities Exam: No Edema, Pedal Pulses Palpable Neurologic Neuro Exam: Alert, Awake, Oriented, Speech Clear, 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, Physical Chemist Equal, 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 Psychiatric Psych Exam: Appropriate Responses PUD Prophylasis PUD Prophylaxis: Protonix Assessment/Plan Assessment/Plan Right hallux pain/ecchymosis/swelling, status post bedside procedure 11/20/2016 pancytopenia 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, secondary to herpes simplex type I, improved Right external ear cellulitis, Leukopenia, No evidence of gout Symptomatic anemia, Improved after transfusion Severe profound symptomatic thrombocytopenia, given platelets again today Uncontrolled aplastic anemia Acellular bone marrow per biopsy report Status post bone marrow biopsy 05/18/17 Recent diagnosis of atrial fibrillation Recent diagnosis of gastric erosions Maculopapular rash, poss drug induced, Cefepime dc Management Podiatry input appreciated, signed off wound culture staph hominis appreciate ID input Topical Zovirax to upper lip Follow blood culture reports Mupirocin cream for both nostrils Acyclovir dc, now on Valtrex On Vancomycin Cefepime dc'd due to rash Continue with Azactam Rash, Poss drug eruption resolving Steroids being weaned off BP control, continue home meds Lisinopril for blood pressure control Lasix 20 mg twice a day oncology following continue neupogen HH stable 07/06.4 Plat 9 Will receive platelets today bone marrow biopsy results show aplastic anemia s/p ATG and cyclosporine started on Promacta 06/12 Continue treatment as above, patient not ready for discharge until bone marrow recovery afib RVR, received dig Had Echo, EF okay continue Amiodarone 200 mg po bid Rate better controlled Was evaluated by cardiology during most previous admission Stable, will DC telemetry monitoring. Labs in am Condition guarded DC planning in progress. D/W RN D/W D/W pt This patient was seen by myself and Dr. Swanson, this note is written on her behalf. Sofia Morris Jun 14, 2017 13:31
[2017-06-14] MEDS: FILGRASTIM INJ 480 MCG in DEXTROSE 5% IN WATER INJ 25 ML IV SCH ×2 (15:04)
[2017-06-15] VITALS (7 sets, daily range): BP systolic 111–159; BP diastolic 59–82; PULSE 66–108; RESP 14–20; TEMP 96–98.6; O2SAT 93–98
[2017-06-15] MEDS: AZTREONAM INJ 1,000 MG in SODIUM CHLORIDE 0.9% INJ 100 ML IV SCH ×3 (04:59→20:22)
[2017-06-15] MEDS: CLOTRIMAZOLE 10 MG TROCHE BUCCAL SCH ×5 (05:01→20:21)
[2017-06-15] MEDS: valACYclovir HCL 500 MG TAB PO SCH ×3 (05:01→20:21)
[2017-06-15] MEDS: ELTROMBOPAG 50 MG TAB PO SCH (05:01)
[2017-06-15] MEDS: LEVOTHYROXINE SODIUM 50 MCG TAB PO SCH (05:01)
[2017-06-15] MEDS: VANCOMYCIN 1,000 MG/NS 250 ML IV SCH ×2 (05:29)
[2017-06-15 07:26] LABS: HEMATOCRIT 21.4 % (35.0-46.0); MEAN CELL VOLUME 83.6 FL (80.0-100.0); MEAN CORPUSCULAR HEMOGLOBIN 29.8 PG (27.0-34.0); MEAN CORPUSCULAR HGB CONC 35.6 % (32.0-36.0); RED BLOOD COUNT 2.56 MIL/MM3 (4.00-5.30); RED CELL DISTRIBUTION WIDTH 14.5 % (11.6-17.2); WHITE BLOOD COUNT 2.1 TH/MM3 (4.0-11.0)
[2017-06-15 07:30] LABS: HEMO FLAGS AUTO DIFF
[2017-06-15 07:33] LABS: PLATELET COUNT 17 TH/MM3 (150-450)
[2017-06-15] MEDS: AMIODARONE 200 MG TAB PO SCH ×2 (08:28→20:22)
[2017-06-15] MEDS: PANTOPRAZOLE SOD 40 MG DELAYED RELEASE TAB PO SCH ×2 (08:29→20:21)
[2017-06-15] MEDS: PRAVASTATIN SOD 10 MG TAB PO SCH (08:29)
[2017-06-15] MEDS: methylPREDNISolone 4 MG TAB PO SCH (08:29)
[2017-06-15] MEDS: NYSTAT/DIPHENHY/LIDO MOUTHWASH (Adult) 120ML SWISH-SWAL SCH ×4 (08:29→20:22)
[2017-06-15] MEDS: ACYCLOVIR 5% OINT 15 APPLIC/15 GM TUBE TOPICAL SCH ×2 (09:00→20:23)
[2017-06-15] MEDS: DOCUSATE SODIUM 50 MG/SENNA 8.6 MG TAB PO SCH ×2 (09:00→20:22)
[2017-06-15] MEDS: SODIUM CHLORIDE 0.9% FLUSH 10 ML FLUSH IV FLUSH SCH ×2 (09:00→20:23)
[2017-06-15 09:11] LABS: BANDS 1 % (0-6); POLYS (SEG NEUTROPHILS) 1 % (16-70); WBC DIFF SAMPLE 100
[2017-06-15 09:12] LABS: PLATELET ESTIMATE SMEAR LOW (NORMAL); PLATELET MORPHOLOGY NORMAL (NORMAL); SCAN/DIFF FINAL DIFF MANUAL
--- NOTE | 2017-06-15 10:54 | PD.ONC.PN ---
Subjective Subjective Remarks Afebrile overnight. Patient has no acute complaints. She is asking how much longer until her bone marrow recovers Rash much improved Objective Data Date Time Temp Pulse Resp B/P Pulse Ox O2 Delivery O2 Flow Rate FiO2 06/15/17 07:50 96.8 72 20 157/72 94 06/15/17 05:47 97.3 68 16 142/67 95 06/15/17 00:00 97.1 66 18 159/75 93 06/14/17 20:16 96.4 66 16 141/63 94 06/14/17 16:00 96.3 71 18 138/65 95 06/14/17 12:45 96.4 68 18 127/59 95 06/14/17 12:19 97.9 68 20 144/68 93 06/14/17 12:00 97.3 69 18 140/65 94 Result Diagram: 06/15/17 0534 06/15/17 0534 Laboratory Results Laboratory Tests Test 06/15/17 05:34 White Blood Count 2.1 TH/MM3 Red Blood Count 2.56 MIL/MM3 Hemoglobin 7.6 GM/DL Hematocrit 21.4 % Mean Corpuscular Volume 83.6 FL Mean Corpuscular Hemoglobin 29.8 PG Mean Corpuscular Hemoglobin 35.6 % Concent Red Cell Distribution Width 14.5 % Platelet Count 17 TH/MM3 Mean Platelet Volume 8.4 FL Neutrophils (%) (Auto) % Lymphocytes (%) (Auto) % Monocytes (%) (Auto) % Eosinophils (%) (Auto) % Basophils (%) (Auto) % Neutrophils # (Auto) TH/MM3 Lymphocytes # (Auto) TH/MM3 Monocytes # (Auto) TH/MM3 Eosinophils # (Auto) TH/MM3 Basophils # (Auto) TH/MM3 CBC Comment AUTO DIFF Differential Total Cells 100 Counted Neutrophils % (Manual) 1 % Band Neutrophils % 1 % Lymphocytes % 98 % Neutrophils # (Manual) 0.0 TH/MM3 Differential Comment FINAL DIFF MANUAL Platelet Estimate LOW Platelet Morphology Comment NORMAL Creatinine 0.51 MG/DL Estimat Glomerular Filtration 115 ML/MIN Rate Administered Medications Medications (Trade) Dose Ordered Sig/José Route PRN Reason Start Time Stop Time Status Last Admin Dose Admin Sodium Chloride (NS Flush) 2 ml UNSCH PRN IV FLUSH FLUSH AFTER USING IV ACCESS 05/18/17 10:15 05/30/17 10:15 Sodium Chloride (NS Flush) 2 ml BID IV FLUSH 05/18/17 21:00 06/14/17 20:21 Ondansetron HCl (Zofran Inj) 4 mg Q6H PRN IVP NAUSEA OR VOMITING 05/18/17 10:15 06/08/17 04:56 Senna/Docusate Sodium (Rosalinda-Colace) 1 tab BID PO 05/18/17 21:00 06/11/17 19:50 Levothyroxine Sodium (Synthroid) 50 mcg DAILY@0600 PO 05/19/17 06:00 06/15/17 05:01 Pantoprazole Sodium (Protonix) 40 mg BID PO 05/18/17 21:00 06/15/17 08:29 Pravastatin Sodium (Pravachol) 10 mg DAILY PO 05/19/17 09:00 06/15/17 08:29 Diphenhydramine HCl (Benadryl) 25 mg Q4H PRN PO FOR BLOOD PRODUCTS 05/19/17 01:30 06/14/17 11:52 Acetaminophen (Tylenol) 650 mg Q4H PRN PO BLOOD PRODUCTS OR FEVER>100.4 05/19/17 01:30 06/14/17 11:52 Furosemide (Lasix) 20 mg BID@09,18 PO 05/23/17 18:00 Hold 06/08/17 09:49 Potassium Chloride (KCl) 20 meq BID PO 05/28/17 21:00 Hold 06/08/17 09:49 Mupirocin 1 applic 1 applic BID EACH NARE 05/30/17 15:00 Hold 06/05/17 21:44 Filgrastim/ Dextrose (Neupogen Inj/ D5W Inj) 26.6 ml @ 106.4 mls/ hr DAILY@14 IV 05/31/17 14:00 06/14/17 15:04 Acyclovir (Zovirax 5% Oint (15 Gm)) 1 applic BID TOPICAL 06/01/17 15:00 06/13/17 09:45 Multi-Ingredient Mouthwash/Gargle 5 ml 5 ml QID SWISH-SWAL 06/03/17 13:00 06/15/17 08:29 Aztreonam 1000 mg/ Sodium Chloride 100 ml @ 200 mls/hr Q8H IV 06/04/17 12:00 06/15/17 04:59 Vancomycin HCl/ Sodium Chloride (Vancomycin Inj/ NS 250 ml Inj) 250 ml @ 250 mls/hr Q24H IV 06/05/17 05:00 06/15/17 05:29 Valacyclovir HCl (Valtrex) 1,000 mg Q8HR PO 06/04/17 14:15 06/15/17 05:01 Heparin Sodium (Porcine) (Heparin Central Flush) 200 units DAILY IV FLUSH 06/06/17 09:00 06/14/17 09:28 Sodium Chloride (NS Flush) 5 ml UNSCH PRN IV FLUSH SEE PROTOCOL TABLE 06/06/17 07:00 06/07/17 22:56 Heparin Sodium (Porcine) (Heparin Central Flush) 200 units UNSCH PRN IV FLUSH SEE PROTOCOL TABLE 06/06/17 07:00 06/07/17 22:56 Sodium Chloride (NS Flush) 5 ml UNSCH PRN IV FLUSH NEEDED 06/06/17 07:00 06/07/17 04:59 Sodium Chloride (NS Flush) 5 ml UNSCH PRN IV FLUSH SEE PROTOCOL TABLE 06/06/17 07:00 06/07/17 04:58 Amiodarone HCl (Cordarone) 200 mg BID PO 06/11/17 21:00 06/15/17 08:28 Eltrombopag (Promacta) 150 mg DAILY@06 PO 06/13/17 06:00 06/15/17 05:01 Methylprednisolone (Medrol) 20 mg DAILY PO 06/15/17 09:00 06/15/17 08:29 Objective Remarks GENERAL: Pleasant female sitting up in bed in no distress with daughter present. 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 HEAD: Normocephalic. EYES: No injection or drainage. NECK: Supple, trachea midline. CARDIOVASCULAR: +S1/S2 RESPIRATORY: Clear posteriorly. Breathing unlabored. GASTROINTESTINAL: Abdomen soft, non-tender, nondistended. EXTREMITIES: No cyanosis. Trace edema bilateral lower extremities NEUROLOGICAL: Moving all extremities, normal speech. No obvious focal deficit. Assessment/Plan Problem List: (1) Pancytopenia Status: Acute Plan: -- +aplastic anemia -- bone marrow biopsy results show aplastic anemia -- s/p ATG and cyclosporine Assessment 82-year-old female with aplastic anemia s/p ATG and cyclosporine. Plan 1. Transfuse one unit irradiated packed red blood cells. 2. Continue to wean steroids. Decrease to 10 mg tomorrow. 3. Continue antibiotics until counts recover 4. Monitor CBC. We will continue to transfuse as needed Attending Statement The exam, history, and the medical decision-making described in the above note were completed with the assistance of the mid-level provider. I reviewed and agree with the findings presented. I attest that I had a [id number] encounter with the patient on the same day, and personally performed and documented my assessment and findings in the medical record. remains stable and rash almost resolved. will decrease prednisone tomorrow and continue antibiotics until recovery of counts. Merry Hebert Jun 15, 2017 10:54 Rajinder Roa MD Jun 15, 2017 17:12
--- NOTE | 2017-06-15 11:02 | HHI.PR ---
Subjective Subjective Remarks rash improved no fever no Chest pain Or shortness of breath Eating well No Diarrhea daughter at bsd Review of Systems Constitutional Constitutional Remarks 12 point ros completed, negative except as noted above Hematologic/Lymphatic Heme/Lymph: Ecchymosis Vitals/Results Intake & Output 06/14/17 06/14/17 06/15/17 15:00 23:00 07:00 Intake Total 736 ml 206 ml Balance 736 ml 206 ml Intake Oral 720 ml IV Total 16 ml 206 ml # Voids 3 Vital Signs Vital Signs Date Time Temp Pulse Resp B/P Pulse Ox O2 Delivery O2 Flow Rate FiO2 06/15/17 07:50 96.8 72 20 157/72 94 06/15/17 05:47 97.3 68 16 142/67 95 06/15/17 00:00 97.1 66 18 159/75 93 06/14/17 20:16 96.4 66 16 141/63 94 06/14/17 16:00 96.3 71 18 138/65 95 06/14/17 12:45 96.4 68 18 127/59 95 06/14/17 12:19 97.9 68 20 144/68 93 06/14/17 12:00 97.3 69 18 140/65 94 CBC/BMP: 06/15/17 0534 06/15/17 0534 Lab Results Laboratory Tests Test 06/15/17 05:34 White Blood Count 2.1 TH/MM3 Red Blood Count 2.56 MIL/MM3 Hemoglobin 7.6 GM/DL Hematocrit 21.4 % Mean Corpuscular Volume 83.6 FL Mean Corpuscular Hemoglobin 29.8 PG Mean Corpuscular Hemoglobin 35.6 % Concent Red Cell Distribution Width 14.5 % Platelet Count 17 TH/MM3 Mean Platelet Volume 8.4 FL Neutrophils (%) (Auto) % Lymphocytes (%) (Auto) % Monocytes (%) (Auto) % Eosinophils (%) (Auto) % Basophils (%) (Auto) % Neutrophils # (Auto) TH/MM3 Lymphocytes # (Auto) TH/MM3 Monocytes # (Auto) TH/MM3 Eosinophils # (Auto) TH/MM3 Basophils # (Auto) TH/MM3 CBC Comment AUTO DIFF Differential Total Cells 100 Counted Neutrophils % (Manual) 1 % Band Neutrophils % 1 % Lymphocytes % 98 % Neutrophils # (Manual) 0.0 TH/MM3 Differential Comment FINAL DIFF MANUAL Platelet Estimate LOW Platelet Morphology Comment NORMAL Creatinine 0.51 MG/DL Estimat Glomerular Filtration 115 ML/MIN Rate Physical Exam General General Appearance: Well Developed, No Acute Distress, Comfortable, Pale Eyes Eye Exam: Pupils Equal, Pupils Reactive Ears & Nose Ears & Nose Exam: Nasal Mucosa Alvin Throat Throat Exam: Oral Mucosa Alvin & Moist Throat Remarks herpes lesion top lip now off Neck Neck Exam: Trachea Midline Pulmonary Resp Exam: Clear Bilaterally, Breath Sounds Equal, No Distress Cardiology CV Exam: Regular, Good Perfusion, Murmur Gastrointestinal/Abdomen GI Exam: Soft, Non-Tender, Bowel Sounds Present, Non-Distended Hematologic/Lymphatic Heme Exam: Ecchymosis Musculoskeletal MS Exam: Normal Tone MS Remarks erythematous, discoloration both legs, mild edema Integumentary Skin Exam: Warm, Dry Skin Remarks rash markedly improved, not more brownish discoloration palmar rash improved discoloration both legs, erythematous/brownish Extremeties Extremities Exam: No Edema, Pedal Pulses Palpable Neurologic Neuro Exam: Alert, Awake, Oriented, Speech Clear, 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, Professional Nursing Assistant Equal, 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 Psychiatric Psych Exam: Appropriate Responses PUD Prophylasis PUD Prophylaxis: Protonix Assessment/Plan Assessment/Plan Right hallux pain/ecchymosis/swelling, status post bedside procedure 11/20/2016 pancytopenia 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, secondary to herpes simplex type I, improved Right external ear cellulitis, Leukopenia, No evidence of gout Symptomatic anemia, Improved after transfusion Severe profound symptomatic thrombocytopenia, given platelets again today Uncontrolled aplastic anemia Acellular bone marrow per biopsy report Status post bone marrow biopsy 05/18/17 Recent diagnosis of atrial fibrillation Recent diagnosis of gastric erosions Maculopapular rash, poss drug induced, Cefepime dc Management Podiatry input appreciated, signed off wound culture staph hominis appreciate ID input Topical Zovirax to upper lip Follow blood culture reports Mupirocin cream for both nostrils Acyclovir dc, now on Valtrex On Vancomycin Cefepime dc'd due to rash Continue with Azactam Rash, Poss drug eruption resolving Steroids being weaned off BP control, continue home meds Lisinopril for blood pressure control Lasix 20 mg twice a day oncology following continue neupogen HH 7.6/21.4, will receive 1 unit PRBC today Plat 17, no plat tx today bone marrow biopsy results show aplastic anemia s/p ATG and cyclosporine started on Promacta 06/12 Continue treatment as above, patient not ready for discharge until bone marrow recovery afib RVR, received dig Had Echo, EF okay continue Amiodarone 200 mg po bid Rate better controlled Was evaluated by cardiology during most previous admission stable Labs in am Condition guarded DC planning in progress. D/W RN D/W D/W pt This patient was seen by myself and Dr. Swanson, this note is written on her behalf. Sofia Morris Jun 15, 2017 11:02
[2017-06-15] MEDS: diphenhydrAMINE HCL 25 MG CAP PO PRN (12:59)
[2017-06-15] MEDS: ACETAMINOPHEN 325 MG TAB PO PRN (12:59)
[2017-06-15] MEDS: FILGRASTIM INJ 480 MCG in DEXTROSE 5% IN WATER INJ 25 ML IV SCH ×2 (13:08)
[2017-06-15] MEDS: PICC Daily Heparin 100 unit/mL Lock Flush IV FLUSH SCH (17:15)
[2017-06-15] MEDS ORDERED: ACETAMINOPHEN 325 MG TAB PO PRN (22:00)
[2017-06-16] VITALS (8 sets, daily range): BP systolic 120–169; BP diastolic 58–73; PULSE 58–73; RESP 16–20; TEMP 96.9–99.9; O2SAT 92–96
[2017-06-16] MEDS: AZTREONAM INJ 1,000 MG in SODIUM CHLORIDE 0.9% INJ 100 ML IV SCH ×3 (05:01→22:31)
[2017-06-16] MEDS: valACYclovir HCL 500 MG TAB PO SCH ×3 (05:05→22:30)
[2017-06-16] MEDS: CLOTRIMAZOLE 10 MG TROCHE BUCCAL SCH ×5 (05:06→22:32)
[2017-06-16] MEDS: LEVOTHYROXINE SODIUM 50 MCG TAB PO SCH (05:06)
[2017-06-16] MEDS: ELTROMBOPAG 50 MG TAB PO SCH (05:06)
[2017-06-16] MEDS: VANCOMYCIN 1,000 MG/NS 250 ML IV SCH ×2 (06:18)
[2017-06-16] MEDS: AMIODARONE 200 MG TAB PO SCH ×2 (08:25→22:30)
[2017-06-16] MEDS: PANTOPRAZOLE SOD 40 MG DELAYED RELEASE TAB PO SCH (08:25)
[2017-06-16] MEDS: PRAVASTATIN SOD 10 MG TAB PO SCH (08:25)
[2017-06-16] MEDS: DOCUSATE SODIUM 50 MG/SENNA 8.6 MG TAB PO SCH ×2 (08:26→21:00)
[2017-06-16] MEDS: methylPREDNISolone 4 MG TAB PO SCH (08:26)
[2017-06-16] MEDS: ACYCLOVIR 5% OINT 15 APPLIC/15 GM TUBE TOPICAL SCH ×2 (08:26→21:00)
[2017-06-16] MEDS: SODIUM CHLORIDE 0.9% FLUSH 10 ML FLUSH IV FLUSH SCH ×2 (08:26→22:31)
[2017-06-16] MEDS: NYSTAT/DIPHENHY/LIDO MOUTHWASH (Adult) 120ML SWISH-SWAL SCH ×4 (09:00→22:32)
[2017-06-16] MEDS: PICC Daily Heparin 100 unit/mL Lock Flush IV FLUSH SCH (09:00)
[2017-06-16 09:17] LABS: HEMATOCRIT 25.6 % (35.0-46.0); MEAN CORPUSCULAR HEMOGLOBIN 28.9 PG (27.0-34.0); MEAN CORPUSCULAR HGB CONC 34.3 % (32.0-36.0); RED BLOOD COUNT 3.05 MIL/MM3 (4.00-5.30); RED CELL DISTRIBUTION WIDTH 14.2 % (11.6-17.2); WHITE BLOOD COUNT 2.1 TH/MM3 (4.0-11.0)
[2017-06-16 09:21] LABS: HEMO FLAGS AUTO DIFF
[2017-06-16 09:24] LABS: PLATELET COUNT 11 TH/MM3 (150-450)
[2017-06-16 11:36] LABS: POLYS (SEG NEUTROPHILS) 2 % (16-70); WBC DIFF SAMPLE 100
[2017-06-16 11:37] LABS: PLATELET ESTIMATE SMEAR RARE (NORMAL); PLATELET MORPHOLOGY NORMAL (NORMAL); SCAN/DIFF FINAL DIFF MANUAL
[2017-06-16 11:39] LABS: SMUDGE CELLS PRESENT PRESENT
--- NOTE | 2017-06-16 14:23 | HHI.PR ---
Subjective Remarks no fever no Chest pain Or shortness of breath Eating well No Diarrhea daughter at bsd Review of Systems 1o point ros completed, negative except as noted above Objective Objective Results - Vital Signs Date Time Temp Pulse Resp B/P Pulse Ox O2 Delivery O2 Flow Rate FiO2 06/16/17 11:30 98.8 66 20 161/70 94 06/16/17 07:50 99.9 71 20 154/67 93 06/16/17 04:00 96.9 73 17 159/73 93 06/16/17 00:00 98.2 67 18 120/58 92 06/15/17 20:00 96.0 91 18 122/78 95 06/15/17 15:00 97.4 94 18 111/67 96 06/15/17 15:00 96.6 95 20 113/72 95 I/O 06/15/17 06/15/17 06/15/17 06/16/17 06/16/17 06/16/17 06:59 14:59 22:59 06:59 14:59 22:59 Intake Total 240 ml 250 ml Output Total 450 ml Balance -210 ml 250 ml Intake Oral 240 ml Packed Cells 250 ml Output Urine Total 450 ml # Voids 3 2 # Bowel Movements 1 Result Diagram: 06/16/17 0830 06/15/17 0534 Imaging Last 24 hours Impressions Bone Biopsy CT 05/18/17 1456 Signed Impressions: Service Date/Time: Thursday, May 18, 2017 15:21 - CONCLUSION: 1. Uncomplicated CT guided bone marrow aspirate. 2. Uncomplicated CT guided bone marrow biopsy. Robert Cruz MD FACR Other Results Laboratory Tests Test 06/16/17 06/16/17 08:30 12:54 White Blood Count 2.1 Red Blood Count 3.05 Hemoglobin 8.8 Hematocrit 25.6 Mean Corpuscular Volume 84.0 Mean Corpuscular Hemoglobin 28.9 Mean Corpuscular Hemoglobin 34.3 Concent Red Cell Distribution Width 14.2 Platelet Count 11 Mean Platelet Volume 8.0 Neutrophils (%) (Auto) Lymphocytes (%) (Auto) Monocytes (%) (Auto) Eosinophils (%) (Auto) Basophils (%) (Auto) Neutrophils # (Auto) Lymphocytes # (Auto) Monocytes # (Auto) Eosinophils # (Auto) Basophils # (Auto) CBC Comment AUTO DIFF Differential Total Cells 100 Counted Neutrophils % (Manual) 2 Lymphocytes % 96 Monocytes % 2 Neutrophils # (Manual) 0.0 Differential Comment FINAL DIFF MANUAL Smudge Cells PRESENT Platelet Estimate RARE Platelet Morphology Comment NORMAL Red Cell Morphology Comment NORMAL Blood Bank Comment Physical Exam Physical Exam General General Appearance: Well Developed, No Acute Distress, Comfortable, Pale Eyes Eye Exam: Pupils Equal, Pupils Reactive Ears & Nose Ears & Nose Exam: Nasal Mucosa [place] Throat Throat Exam: Oral Mucosa [place] & Moist Throat Remarks herpes lesion top lip now off Neck Neck Exam: Trachea Midline Pulmonary Resp Exam: Clear Bilaterally, Breath Sounds Equal, No Distress Cardiology CV Exam: Regular, Good Perfusion, Murmur Gastrointestinal/Abdomen GI Exam: Soft, Non-Tender, Bowel Sounds Present, Non-Distended Hematologic/Lymphatic Heme Exam: Ecchymosis Musculoskeletal MS Exam: Normal Tone MS Remarks erythematous, discoloration both legs, mild edema Integumentary Skin Exam: Warm, Dry Skin Remarks rash markedly improved, not more brownish discoloration palmar rash improved discoloration both legs, erythematous/brownish Extremeties Extremities Exam: No Edema, Pedal Pulses Palpable Neurologic Neuro Exam: Alert, Awake, Oriented, Speech Clear, 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, Potato Grader Equal, 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 Psychiatric Psych Exam: Appropriate Responses PUD Prophylasis PUD Prophylaxis: Protonix A/P Assessment and Plan Right hallux pain/ecchymosis/swelling, status post bedside procedure 11/20/2016 pancytopenia 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, secondary to herpes simplex type I, improved Right external ear cellulitis, Leukopenia, No evidence of gout Symptomatic anemia, Improved after transfusion Severe profound symptomatic thrombocytopenia, given platelets again today Uncontrolled aplastic anemia Acellular bone marrow per biopsy report Status post bone marrow biopsy 05/18/17 Recent diagnosis of atrial fibrillation Recent diagnosis of gastric erosions Maculopapular rash, poss drug induced, Cefepime dc Management Podiatry input appreciated, signed off wound culture staph hominis appreciate ID input Topical Zovirax to upper lip Follow blood culture reports Mupirocin cream for both nostrils Acyclovir dc, now on Valtrex On Vancomycin Cefepime dc'd due to rash Continue with Azactam Rash, Poss drug eruption better Steroids being weaned off BP control, continue home meds Lisinopril for blood pressure control Lasix 20 mg twice a day oncology following continue neupogen 06/21, had 1 unit PRBC 06/15 Plat 11, for plat tx today bone marrow biopsy results show aplastic anemia s/p ATG and cyclosporine started on Promacta 06/12 Continue treatment as above, patient not ready for discharge until bone marrow recovery afib RVR, received dig Had Echo, EF okay continue Amiodarone 200 mg po bid Rate better controlled Was evaluated by cardiology during most previous admission stable Labs in am Condition guarded dw pt D/W RN Discussed With: Nurse, Family Zaina Swanson MD Jun 16, 2017 14:23
[2017-06-16] MEDS: ACETAMINOPHEN 325 MG TAB PO PRN (14:29)
[2017-06-16] MEDS: diphenhydrAMINE HCL 25 MG CAP PO PRN (14:32)
[2017-06-16] MEDS: FILGRASTIM INJ 480 MCG in DEXTROSE 5% IN WATER INJ 25 ML IV SCH ×2 (14:33)
--- NOTE | 2017-06-16 18:02 | PD.ONC.PN ---
Subjective Subjective Remarks Patient resting in bed in no distress Asking when her counts will recover Denies any acute complaints Objective Data Date Time Temp Pulse Resp B/P Pulse Ox O2 Delivery O2 Flow Rate FiO2 06/16/17 15:39 98.0 62 16 129/69 96 06/16/17 15:04 98.4 65 16 134/65 95 06/16/17 11:30 98.8 66 20 161/70 94 06/16/17 07:50 99.9 71 20 154/67 93 06/16/17 04:00 96.9 73 17 159/73 93 06/16/17 00:00 98.2 67 18 120/58 92 06/15/17 20:00 96.0 91 18 122/78 95 06/16/17 06/16/17 06/16/17 07:00 15:00 23:00 Intake Total 397 ml Balance 397 ml Result Diagram: 06/16/17 0830 06/15/17 0534 Laboratory Results Laboratory Tests Test 06/16/17 06/16/17 08:30 12:54 White Blood Count 2.1 TH/MM3 Red Blood Count 3.05 MIL/MM3 Hemoglobin 8.8 GM/DL Hematocrit 25.6 % Mean Corpuscular Volume 84.0 FL Mean Corpuscular Hemoglobin 28.9 PG Mean Corpuscular Hemoglobin 34.3 % Concent Red Cell Distribution Width 14.2 % Platelet Count 11 TH/MM3 Mean Platelet Volume 8.0 FL Neutrophils (%) (Auto) % Lymphocytes (%) (Auto) % Monocytes (%) (Auto) % Eosinophils (%) (Auto) % Basophils (%) (Auto) % Neutrophils # (Auto) TH/MM3 Lymphocytes # (Auto) TH/MM3 Monocytes # (Auto) TH/MM3 Eosinophils # (Auto) TH/MM3 Basophils # (Auto) TH/MM3 CBC Comment AUTO DIFF Differential Total Cells 100 Counted Neutrophils % (Manual) 2 % Lymphocytes % 96 % Monocytes % 2 % Neutrophils # (Manual) 0.0 TH/MM3 Differential Comment FINAL DIFF MANUAL Smudge Cells PRESENT Platelet Estimate RARE Platelet Morphology Comment NORMAL Red Cell Morphology Comment NORMAL Blood Bank Comment Administered Medications Medications (Trade) Dose Ordered Sig/José Route PRN Reason Start Time Stop Time Status Last Admin Dose Admin Sodium Chloride (NS Flush) 2 ml UNSCH PRN IV FLUSH FLUSH AFTER USING IV ACCESS 05/18/17 10:15 05/30/17 10:15 Sodium Chloride (NS Flush) 2 ml BID IV FLUSH 05/18/17 21:00 06/16/17 08:26 Ondansetron HCl (Zofran Inj) 4 mg Q6H PRN IVP NAUSEA OR VOMITING 05/18/17 10:15 06/08/17 04:56 Senna/Docusate Sodium (Rosalinda-Colace) 1 tab BID PO 05/18/17 21:00 06/15/17 20:22 Levothyroxine Sodium (Synthroid) 50 mcg DAILY@0600 PO 05/19/17 06:00 06/16/17 05:06 Pantoprazole Sodium (Protonix) 40 mg BID PO 05/18/17 21:00 06/16/17 08:25 Pravastatin Sodium (Pravachol) 10 mg DAILY PO 05/19/17 09:00 06/16/17 08:25 Diphenhydramine HCl (Benadryl) 25 mg Q4H PRN PO FOR BLOOD PRODUCTS 05/19/17 01:30 06/16/17 14:32 Acetaminophen (Tylenol) 650 mg Q4H PRN PO BLOOD PRODUCTS 05/19/17 01:30 06/16/17 14:29 Furosemide (Lasix) 20 mg BID@09,18 PO 05/23/17 18:00 Hold 06/08/17 09:49 Potassium Chloride (KCl) 20 meq BID PO 05/28/17 21:00 Hold 06/08/17 09:49 Mupirocin 1 applic 1 applic BID EACH NARE 05/30/17 15:00 Hold 06/05/17 21:44 Filgrastim/ Dextrose (Neupogen Inj/ D5W Inj) 26.6 ml @ 106.4 mls/ hr DAILY@14 IV 05/31/17 14:00 06/16/17 14:33 Acyclovir (Zovirax 5% Oint (15 Gm)) 1 applic BID TOPICAL 06/01/17 15:00 06/13/17 09:45 Multi-Ingredient Mouthwash/Gargle 5 ml 5 ml QID SWISH-SWAL 06/03/17 13:00 06/16/17 17:49 Aztreonam 1000 mg/ Sodium Chloride 100 ml @ 200 mls/hr Q8H IV 06/04/17 12:00 06/16/17 13:20 Vancomycin HCl/ Sodium Chloride (Vancomycin Inj/ NS 250 ml Inj) 250 ml @ 250 mls/hr Q24H IV 06/05/17 05:00 06/16/17 06:18 Valacyclovir HCl (Valtrex) 1,000 mg Q8HR PO 06/04/17 14:15 06/16/17 13:19 Heparin Sodium (Porcine) (Heparin Central Flush) 200 units DAILY IV FLUSH 06/06/17 09:00 06/15/17 17:15 Sodium Chloride (NS Flush) 5 ml UNSCH PRN IV FLUSH SEE PROTOCOL TABLE 06/06/17 07:00 06/07/17 22:56 Heparin Sodium (Porcine) (Heparin Central Flush) 200 units UNSCH PRN IV FLUSH SEE PROTOCOL TABLE 06/06/17 07:00 06/07/17 22:56 Sodium Chloride (NS Flush) 5 ml UNSCH PRN IV FLUSH NEEDED 06/06/17 07:00 06/07/17 04:59 Sodium Chloride (NS Flush) 5 ml UNSCH PRN IV FLUSH SEE PROTOCOL TABLE 06/06/17 07:00 06/07/17 04:58 Amiodarone HCl (Cordarone) 200 mg BID PO 06/11/17 21:00 06/16/17 08:25 Eltrombopag (Promacta) 150 mg DAILY@06 PO 06/13/17 06:00 06/16/17 05:06 Methylprednisolone (Medrol) 20 mg DAILY PO 06/15/17 09:00 06/16/17 08:26 Objective Remarks GENERAL: Pleasant female sitting up in bed in no distress with daughter present. 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 HEAD: Normocephalic. EYES: No injection or drainage. NECK: Supple, trachea midline. CARDIOVASCULAR: +S1/S2 RESPIRATORY: Clear posteriorly. Breathing unlabored. GASTROINTESTINAL: Abdomen soft, non-tender, nondistended. EXTREMITIES: No cyanosis. Trace edema bilateral lower extremities NEUROLOGICAL: Moving all extremities, normal speech. No obvious focal deficit. Assessment/Plan Problem List: (1) Pancytopenia Status: Acute Plan: -- +aplastic anemia -- bone marrow biopsy results show aplastic anemia -- s/p ATG and cyclosporine Assessment 82-year-old female with aplastic anemia s/p ATG and cyclosporine. Plan 1. Transfuse one unit irradiated platelets 2. Decrease Medrol to 10 mg daily 3. Continue antibiotics until counts recover 4. Monitor CBC. We will continue to transfuse as needed Merry Hebert Jun 16, 2017 18:02
[2017-06-17] VITALS (7 sets, daily range): BP systolic 93–151; BP diastolic 56–72; PULSE 61–111; RESP 15–18; TEMP 98–100.2; O2SAT 92–96
[2017-06-17] MEDS: ELTROMBOPAG 50 MG TAB PO SCH (04:57)
[2017-06-17] MEDS: AZTREONAM INJ 1,000 MG in SODIUM CHLORIDE 0.9% INJ 100 ML IV SCH ×3 (04:57→19:54)
[2017-06-17] MEDS: LEVOTHYROXINE SODIUM 50 MCG TAB PO SCH (04:57)
[2017-06-17] MEDS: valACYclovir HCL 500 MG TAB PO SCH ×3 (04:57→19:51)
[2017-06-17] MEDS: CLOTRIMAZOLE 10 MG TROCHE BUCCAL SCH ×5 (04:57→19:50)
[2017-06-17] MEDS: VANCOMYCIN 1,000 MG/NS 250 ML IV SCH ×2 (05:56)
[2017-06-17 06:21] LABS: HEMATOCRIT 24.7 % (35.0-46.0); MEAN CELL VOLUME 83.7 FL (80.0-100.0); MEAN CORPUSCULAR HEMOGLOBIN 28.9 PG (27.0-34.0); MEAN CORPUSCULAR HGB CONC 34.5 % (32.0-36.0); PLATELET COUNT 28 TH/MM3 (150-450); RED BLOOD COUNT 2.95 MIL/MM3 (4.00-5.30); RED CELL DISTRIBUTION WIDTH 14.3 % (11.6-17.2)
[2017-06-17 06:23] LABS: HEMO FLAGS AUTO DIFF
[2017-06-17 06:50] LABS: BICARBONATE 32.2 MEQ/L (21.0-32.0)
[2017-06-17 07:02] LABS: POTASSIUM 2.5 MEQ/L (3.5-5.1)
[2017-06-17 07:05] LABS: NEUTROPHIL # MANUAL DIFF 0.1 TH/MM3 (1.8-7.7); PLATELET ESTIMATE SMEAR LOW (NORMAL); PLATELET MORPHOLOGY NORMAL (NORMAL); POLYS (SEG NEUTROPHILS) 3 % (16-70); SCAN/DIFF FINAL DIFF MANUAL; WBC DIFF SAMPLE 100
[2017-06-17 07:09] LABS: SMUDGE CELLS PRESENT PRESENT
[2017-06-17] MEDS: NYSTAT/DIPHENHY/LIDO MOUTHWASH (Adult) 120ML SWISH-SWAL SCH ×4 (09:31→19:51)
[2017-06-17] MEDS: AMIODARONE 200 MG TAB PO SCH ×2 (09:32→19:51)
[2017-06-17] MEDS: methylPREDNISolone 4 MG TAB PO SCH (09:32)
[2017-06-17] MEDS: PRAVASTATIN SOD 10 MG TAB PO SCH (09:32)
[2017-06-17] MEDS: DOCUSATE SODIUM 50 MG/SENNA 8.6 MG TAB PO SCH ×2 (09:33→19:51)
[2017-06-17] MEDS: PICC HIT (ADULT) PRN NS Lock Flush IV FLUSH (09:33)
[2017-06-17] MEDS: SODIUM CHLORIDE 0.9% FLUSH 10 ML FLUSH IV FLUSH SCH ×2 (09:33→19:54)
[2017-06-17] MEDS: PANTOPRAZOLE SOD 40 MG DELAYED RELEASE TAB PO SCH (09:33)
[2017-06-17] MEDS: ACYCLOVIR 5% OINT 15 APPLIC/15 GM TUBE TOPICAL SCH ×2 (09:39→19:54)
--- NOTE | 2017-06-17 10:45 | PD.ONC.PN ---
Subjective Subjective Remarks Tmax 99.7 overnight. Patient resting in bed in nad. Has little to no appetite. Tired of hospital food. Objective Data Date Time Temp Pulse Resp B/P Pulse Ox O2 Delivery O2 Flow Rate FiO2 06/17/17 08:00 99.3 70 18 138/72 93 06/17/17 04:00 99.7 63 17 151/67 92 06/17/17 00:00 98.7 61 17 144/66 93 06/16/17 20:00 97.4 58 18 149/70 94 06/16/17 15:39 98.0 62 16 129/69 96 06/16/17 15:04 98.4 65 16 134/65 95 06/16/17 15:00 97.9 62 20 169/72 94 06/16/17 11:30 98.8 66 20 161/70 94 Result Diagram: 06/17/17 0450 06/17/17 0450 Laboratory Results Laboratory Tests Test 06/16/17 06/17/17 12:54 04:50 Blood Bank Comment White Blood Count 2.0 TH/MM3 Red Blood Count 2.95 MIL/MM3 Hemoglobin 8.5 GM/DL Hematocrit 24.7 % Mean Corpuscular Volume 83.7 FL Mean Corpuscular Hemoglobin 28.9 PG Mean Corpuscular Hemoglobin 34.5 % Concent Red Cell Distribution Width 14.3 % Platelet Count 28 TH/MM3 Mean Platelet Volume 7.9 FL Neutrophils (%) (Auto) % Lymphocytes (%) (Auto) % Monocytes (%) (Auto) % Eosinophils (%) (Auto) % Basophils (%) (Auto) % Neutrophils # (Auto) TH/MM3 Lymphocytes # (Auto) TH/MM3 Monocytes # (Auto) TH/MM3 Eosinophils # (Auto) TH/MM3 Basophils # (Auto) TH/MM3 CBC Comment AUTO DIFF Differential Total Cells 100 Counted Neutrophils % (Manual) 3 % Lymphocytes % 96 % Monocytes % 1 % Neutrophils # (Manual) 0.1 TH/MM3 Differential Comment FINAL DIFF MANUAL Smudge Cells PRESENT Platelet Estimate LOW Platelet Morphology Comment NORMAL Red Cell Morphology Comment NORMAL Sodium Level 141 MEQ/L Potassium Level 2.5 MEQ/L Chloride Level 102 MEQ/L Carbon Dioxide Level 32.2 MEQ/L Anion Gap 7 MEQ/L Blood Urea Nitrogen 16 MG/DL Creatinine 0.52 MG/DL Estimat Glomerular Filtration 113 ML/MIN Rate Random Glucose 75 MG/DL Calcium Level 7.9 MG/DL Administered Medications Medications (Trade) Dose Ordered Sig/José Route PRN Reason Start Time Stop Time Status Last Admin Dose Admin Sodium Chloride (NS Flush) 2 ml UNSCH PRN IV FLUSH FLUSH AFTER USING IV ACCESS 05/18/17 10:15 05/30/17 10:15 Sodium Chloride (NS Flush) 2 ml BID IV FLUSH 05/18/17 21:00 06/17/17 09:33 Ondansetron HCl (Zofran Inj) 4 mg Q6H PRN IVP NAUSEA OR VOMITING 05/18/17 10:15 06/08/17 04:56 Senna/Docusate Sodium (Rosalinda-Colace) 1 tab BID PO 05/18/17 21:00 06/15/17 20:22 Levothyroxine Sodium (Synthroid) 50 mcg DAILY@0600 PO 05/19/17 06:00 06/17/17 04:57 Pravastatin Sodium (Pravachol) 10 mg DAILY PO 05/19/17 09:00 06/17/17 09:32 Diphenhydramine HCl (Benadryl) 25 mg Q4H PRN PO FOR BLOOD PRODUCTS 05/19/17 01:30 06/16/17 14:32 Acetaminophen (Tylenol) 650 mg Q4H PRN PO BLOOD PRODUCTS 05/19/17 01:30 06/16/17 14:29 Furosemide (Lasix) 20 mg BID@09,18 PO 05/23/17 18:00 Hold 06/08/17 09:49 Potassium Chloride (KCl) 20 meq BID PO 05/28/17 21:00 Hold 06/08/17 09:49 Mupirocin 1 applic 1 applic BID EACH NARE 05/30/17 15:00 Hold 06/05/17 21:44 Filgrastim/ Dextrose (Neupogen Inj/ D5W Inj) 26.6 ml @ 106.4 mls/ hr DAILY@14 IV 05/31/17 14:00 06/16/17 14:33 Acyclovir (Zovirax 5% Oint (15 Gm)) 1 applic BID TOPICAL 06/01/17 15:00 06/13/17 09:45 Multi-Ingredient Mouthwash/Gargle 5 ml 5 ml QID SWISH-SWAL 06/03/17 13:00 06/17/17 09:31 Aztreonam 1000 mg/ Sodium Chloride 100 ml @ 200 mls/hr Q8H IV 06/04/17 12:00 06/17/17 04:57 Vancomycin HCl/ Sodium Chloride (Vancomycin Inj/ NS 250 ml Inj) 250 ml @ 250 mls/hr Q24H IV 06/05/17 05:00 06/17/17 05:56 Valacyclovir HCl (Valtrex) 1,000 mg Q8HR PO 06/04/17 14:15 06/17/17 04:57 Heparin Sodium (Porcine) (Heparin Central Flush) 200 units DAILY IV FLUSH 06/06/17 09:00 06/15/17 17:15 Sodium Chloride (NS Flush) 5 ml UNSCH PRN IV FLUSH SEE PROTOCOL TABLE 06/06/17 07:00 06/07/17 22:56 Heparin Sodium (Porcine) (Heparin Central Flush) 200 units UNSCH PRN IV FLUSH SEE PROTOCOL TABLE 06/06/17 07:00 06/07/17 22:56 Sodium Chloride (NS Flush) 5 ml UNSCH PRN IV FLUSH NEEDED 06/06/17 07:00 06/07/17 04:59 Sodium Chloride (NS Flush) 5 ml UNSCH PRN IV FLUSH SEE PROTOCOL TABLE 06/06/17 07:00 06/17/17 09:33 Amiodarone HCl (Cordarone) 200 mg BID PO 06/11/17 21:00 06/17/17 09:32 Eltrombopag (Promacta) 150 mg DAILY@06 PO 06/13/17 06:00 06/17/17 04:57 Methylprednisolone (Medrol) 10 mg DAILY PO 06/17/17 09:00 06/17/17 09:32 Pantoprazole Sodium (Protonix) 40 mg DAILY PO 06/17/17 09:00 06/17/17 09:33 Objective Remarks GENERAL: Elderly female upright in bed in nad. 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 HEAD: Normocephalic. EYES: No injection or drainage. NECK: Supple, trachea midline. CARDIOVASCULAR: +S1/S2 RESPIRATORY: Breath sounds equal bilaterally. No accessory muscle use. GASTROINTESTINAL: Abdomen soft, non-tender, nondistended. EXTREMITIES: No cyanosis. mild edema, ble NEUROLOGICAL: awake and alert, normal speech. moving extremities. Assessment/Plan Assessment 82-year-old female with aplastic anemia s/p ATG and cyclosporine. Plan 1. no transfusion today 2. continue Medrol at 10mg PO daily 3. continue antibiotics 4. hopefully her counts will recover soon. we expect them to recover sometime during the month of June. Ceiclia Hughes Jun 17, 2017 10:45
[2017-06-17] MEDS ORDERED: POTASSIUM CHLOR 40 MEQ PREMIX 100 ML IV ONE (11:00)
[2017-06-17] MEDS ORDERED: POTASSIUM CHLORIDE 10 MEQ CONTROLLED RELEASE TAB PO ONE (11:00)
[2017-06-17] MEDS: FILGRASTIM INJ 480 MCG in DEXTROSE 5% IN WATER INJ 25 ML IV SCH ×2 (13:32)
[2017-06-17] MEDS: PICC Daily Heparin 100 unit/mL Lock Flush IV FLUSH SCH (13:37)
--- NOTE | 2017-06-17 15:40 | HHI.PR ---
Subjective Subjective Remarks Rash almost gone Fever, max 100.2 Had one episode of diarrhea today, large amount Appetite poor today Feeling a little down No chest pain Or shortness of breath Review of Systems Constitutional Constitutional Remarks 12 point ros completed, negative except as noted above Hematologic/Lymphatic Heme/Lymph: Ecchymosis Vitals/Results Intake & Output 06/16/17 06/16/17 06/17/17 15:00 23:00 07:00 Intake Total 120 ml 397 ml Balance 120 ml 397 ml Intake Oral 120 ml IV Total 170 ml Platelets 227 ml # Voids 1 1 # Bowel Movements 0 Vital Signs Vital Signs Date Time Temp Pulse Resp B/P Pulse Ox O2 Delivery O2 Flow Rate FiO2 06/17/17 12:00 100.2 111 18 122/56 92 06/17/17 08:00 99.3 70 18 138/72 93 06/17/17 04:00 99.7 63 17 151/67 92 06/17/17 00:00 98.7 61 17 144/66 93 06/16/17 20:00 97.4 58 18 149/70 94 06/16/17 15:39 98.0 62 16 129/69 96 CBC/BMP: 06/17/17 0450 06/17/17 0450 Lab Results Laboratory Tests Test 06/17/17 04:50 White Blood Count 2.0 TH/MM3 Red Blood Count 2.95 MIL/MM3 Hemoglobin 8.5 GM/DL Hematocrit 24.7 % Mean Corpuscular Volume 83.7 FL Mean Corpuscular Hemoglobin 28.9 PG Mean Corpuscular Hemoglobin 34.5 % Concent Red Cell Distribution Width 14.3 % Platelet Count 28 TH/MM3 Mean Platelet Volume 7.9 FL Neutrophils (%) (Auto) % Lymphocytes (%) (Auto) % Monocytes (%) (Auto) % Eosinophils (%) (Auto) % Basophils (%) (Auto) % Neutrophils # (Auto) TH/MM3 Lymphocytes # (Auto) TH/MM3 Monocytes # (Auto) TH/MM3 Eosinophils # (Auto) TH/MM3 Basophils # (Auto) TH/MM3 CBC Comment AUTO DIFF Differential Total Cells 100 Counted Neutrophils % (Manual) 3 % Lymphocytes % 96 % Monocytes % 1 % Neutrophils # (Manual) 0.1 TH/MM3 Differential Comment FINAL DIFF MANUAL Smudge Cells PRESENT Platelet Estimate LOW Platelet Morphology Comment NORMAL Red Cell Morphology Comment NORMAL Sodium Level 141 MEQ/L Potassium Level 2.5 MEQ/L Chloride Level 102 MEQ/L Carbon Dioxide Level 32.2 MEQ/L Anion Gap 7 MEQ/L Blood Urea Nitrogen 16 MG/DL Creatinine 0.52 MG/DL Estimat Glomerular Filtration 113 ML/MIN Rate Random Glucose 75 MG/DL Calcium Level 7.9 MG/DL Physical Exam General General Appearance: Well Developed, No Acute Distress, Comfortable, Pale Eyes Eye Exam: Pupils Equal, Pupils Reactive Ears & Nose Ears & Nose Exam: Nasal Mucosa [place] Throat Throat Exam: Oral Mucosa [place] & Moist Throat Remarks herpes lesion top lip now off Neck Neck Exam: Trachea Midline Pulmonary Resp Exam: Clear Bilaterally, Breath Sounds Equal, No Distress Cardiology CV Exam: Regular, Good Perfusion, Murmur Gastrointestinal/Abdomen GI Exam: Soft, Non-Tender, Bowel Sounds Present, Positive Bowel Movement, Non- Distended Hematologic/Lymphatic Heme Exam: Ecchymosis Musculoskeletal MS Exam: Normal Tone MS Remarks erythematous, discoloration both legs, mild edema Integumentary Skin Exam: Warm, Dry Skin Remarks rash markedly improved, not more brownish discoloration palmar rash improved discoloration both legs, erythematous/brownish Extremeties Extremities Exam: No Edema, Pedal Pulses Palpable Neurologic Neuro Exam: Alert, Awake, Oriented, Speech Clear, 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, Mine Surveyor Equal, 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 Psychiatric Psych Exam: Appropriate Responses PUD Prophylasis PUD Prophylaxis: Protonix Assessment/Plan Assessment/Plan Right hallux pain/ecchymosis/swelling, status post bedside procedure 11/20/2016 pancytopenia 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, secondary to herpes simplex type I, improved Right external ear cellulitis, Leukopenia, No evidence of gout Symptomatic anemia, Improved after transfusion Severe profound symptomatic thrombocytopenia, given platelets again today Uncontrolled aplastic anemia Acellular bone marrow per biopsy report Status post bone marrow biopsy 05/18/17 Recent diagnosis of atrial fibrillation Recent diagnosis of gastric erosions Maculopapular rash, poss drug induced, Cefepime dc Management Podiatry input appreciated, signed off wound culture staph hominis appreciate ID input Topical Zovirax to upper lip Follow blood culture reports Mupirocin cream for both nostrils Acyclovir dc, now on Valtrex On Vancomycin Cefepime dc'd due to rash Continue with Azactam Rash, Poss drug eruption resolving Steroids being weaned off Diarrhea, 1 episode Hypokalemia, currently on replacement Continue to monitor electrolytes If diarrhea continues, we will check stool for C. difficile BP control, continue home meds Lisinopril for blood pressure control Lasix 20 mg twice a day oncology following continue neupogen H&H stable, hemoglobin 8.5, hematocrit 24.7 Platelets 28 WBC 2 bone marrow biopsy results show aplastic anemia s/p ATG and cyclosporine started on Promacta 06/12 Continue treatment as above, patient not ready for discharge until bone marrow recovery afib RVR, received dig Had Echo, EF okay continue Amiodarone 200 mg po bid Rate better controlled Was evaluated by cardiology during most previous admission stable Labs in the morning Condition guarded D/W RN D/W D/W pt This patient was seen by myself and Dr. Swanson, this note is written on her behalf. Sofia Morris Jun 17, 2017 15:40
[2017-06-18] VITALS (8 sets, daily range): BP systolic 98–141; BP diastolic 52–65; PULSE 61–70; RESP 16–20; TEMP 97.7–99.8; O2SAT 95–97
[2017-06-18] MEDS: AZTREONAM INJ 1,000 MG in SODIUM CHLORIDE 0.9% INJ 100 ML IV SCH ×3 (05:11→22:11)
[2017-06-18] MEDS: ELTROMBOPAG 50 MG TAB PO SCH (05:11)
[2017-06-18] MEDS: valACYclovir HCL 500 MG TAB PO SCH ×3 (05:12→22:12)
[2017-06-18] MEDS: LEVOTHYROXINE SODIUM 50 MCG TAB PO SCH (05:12)
[2017-06-18] MEDS: CLOTRIMAZOLE 10 MG TROCHE BUCCAL SCH ×5 (05:12→22:00)
[2017-06-18] MEDS: VANCOMYCIN 1,000 MG/NS 250 ML IV SCH ×2 (05:48)
[2017-06-18 06:06] LABS: HEMATOCRIT 23.4 % (35.0-46.0); MEAN CELL VOLUME 83.8 FL (80.0-100.0); MEAN CORPUSCULAR HEMOGLOBIN 29.4 PG (27.0-34.0); MEAN CORPUSCULAR HGB CONC 35.1 % (32.0-36.0); RED BLOOD COUNT 2.79 MIL/MM3 (4.00-5.30); RED CELL DISTRIBUTION WIDTH 14.2 % (11.6-17.2); WHITE BLOOD COUNT 1.5 TH/MM3 (4.0-11.0)
[2017-06-18 06:12] LABS: HEMO FLAGS AUTO DIFF
[2017-06-18 06:13] LABS: PLATELET COUNT 12 TH/MM3 (150-450)
[2017-06-18 06:19] LABS: BICARBONATE 30.6 MEQ/L (21.0-32.0)
[2017-06-18] MEDS: DOCUSATE SODIUM 50 MG/SENNA 8.6 MG TAB PO SCH ×2 (08:29→21:00)
[2017-06-18] MEDS: ACYCLOVIR 5% OINT 15 APPLIC/15 GM TUBE TOPICAL SCH ×2 (09:00→21:00)
[2017-06-18 09:02] LABS: BANDS 1 % (0-6); PLATELET ESTIMATE SMEAR RARE (NORMAL); PLATELET MORPHOLOGY NORMAL (NORMAL); WBC DIFF SAMPLE 100
[2017-06-18 09:03] LABS: SCAN/DIFF FINAL DIFF MANUAL
[2017-06-18] MEDS: NYSTAT/DIPHENHY/LIDO MOUTHWASH (Adult) 120ML SWISH-SWAL SCH ×4 (09:38→21:00)
[2017-06-18] MEDS: PRAVASTATIN SOD 10 MG TAB PO SCH (09:39)
[2017-06-18] MEDS: AMIODARONE 200 MG TAB PO SCH ×2 (09:39→22:12)
[2017-06-18] MEDS: diphenhydrAMINE HCL 25 MG CAP PO PRN (09:39)
[2017-06-18] MEDS: PANTOPRAZOLE SOD 40 MG DELAYED RELEASE TAB PO SCH (09:39)
[2017-06-18] MEDS: ACETAMINOPHEN 325 MG TAB PO PRN (09:39)
[2017-06-18] MEDS: POTASSIUM CHLORIDE 25 MEQ EFFERVESCENT TAB PO ONE ×2 (10:00→10:42)
--- NOTE | 2017-06-18 10:09 | PD.ONC.PN ---
Subjective Subjective Remarks Tmax 99.8 overnight. patient resting in bed in nad. No overnight events. Objective Data Date Time Temp Pulse Resp B/P Pulse Ox O2 Delivery O2 Flow Rate FiO2 06/18/17 08:30 99.0 67 16 132/63 95 06/18/17 04:00 99.8 68 16 140/60 97 06/18/17 00:00 98.8 63 16 141/65 95 06/17/17 20:00 98.0 65 16 119/56 95 06/17/17 18:52 64 06/17/17 16:00 98.5 102 15 93/66 96 06/17/17 12:00 100.2 111 18 122/56 92 06/18/17 06/18/17 06/18/17 07:00 15:00 23:00 Intake Total 500 ml Output Total 800 ml 500 ml Balance -300 ml -500 ml Result Diagram: 06/18/17 0500 06/18/17 0500 Laboratory Results Laboratory Tests Test 06/18/17 06/18/17 05:00 07:25 White Blood Count 1.5 TH/MM3 Red Blood Count 2.79 MIL/MM3 Hemoglobin 8.2 GM/DL Hematocrit 23.4 % Mean Corpuscular Volume 83.8 FL Mean Corpuscular Hemoglobin 29.4 PG Mean Corpuscular Hemoglobin 35.1 % Concent Red Cell Distribution Width 14.2 % Platelet Count 12 TH/MM3 Mean Platelet Volume 7.6 FL Neutrophils (%) (Auto) % Lymphocytes (%) (Auto) % Monocytes (%) (Auto) % Eosinophils (%) (Auto) % Basophils (%) (Auto) % Neutrophils # (Auto) TH/MM3 Lymphocytes # (Auto) TH/MM3 Monocytes # (Auto) TH/MM3 Eosinophils # (Auto) TH/MM3 Basophils # (Auto) TH/MM3 CBC Comment AUTO DIFF Differential Total Cells 100 Counted Band Neutrophils % 1 % Lymphocytes % 98 % Monocytes % 1 % Neutrophils # (Manual) 0.0 TH/MM3 Differential Comment FINAL DIFF MANUAL Platelet Estimate RARE Platelet Morphology Comment NORMAL Sodium Level 140 MEQ/L Potassium Level 3.0 MEQ/L Chloride Level 102 MEQ/L Carbon Dioxide Level 30.6 MEQ/L Anion Gap 7 MEQ/L Blood Urea Nitrogen 15 MG/DL Creatinine 0.55 MG/DL Estimat Glomerular Filtration 106 ML/MIN Rate Random Glucose 80 MG/DL Calcium Level 7.7 MG/DL Blood Bank Comment Administered Medications Medications (Trade) Dose Ordered Sig/José Route PRN Reason Start Time Stop Time Status Last Admin Dose Admin Sodium Chloride (NS Flush) 2 ml UNSCH PRN IV FLUSH FLUSH AFTER USING IV ACCESS 05/18/17 10:15 05/30/17 10:15 Sodium Chloride (NS Flush) 2 ml BID IV FLUSH 05/18/17 21:00 06/17/17 19:54 Ondansetron HCl (Zofran Inj) 4 mg Q6H PRN IVP NAUSEA OR VOMITING 05/18/17 10:15 06/08/17 04:56 Senna/Docusate Sodium (Rosalinda-Colace) 1 tab BID PO 05/18/17 21:00 06/15/17 20:22 Levothyroxine Sodium (Synthroid) 50 mcg DAILY@0600 PO 05/19/17 06:00 06/18/17 05:12 Pravastatin Sodium (Pravachol) 10 mg DAILY PO 05/19/17 09:00 06/18/17 09:39 Diphenhydramine HCl (Benadryl) 25 mg Q4H PRN PO FOR BLOOD PRODUCTS 05/19/17 01:30 06/18/17 09:39 Acetaminophen (Tylenol) 650 mg Q4H PRN PO BLOOD PRODUCTS 05/19/17 01:30 06/18/17 09:39 Furosemide (Lasix) 20 mg BID@09,18 PO 05/23/17 18:00 Hold 06/08/17 09:49 Potassium Chloride (KCl) 20 meq BID PO 05/28/17 21:00 Hold 06/08/17 09:49 Mupirocin 1 applic 1 applic BID EACH NARE 05/30/17 15:00 Hold 06/05/17 21:44 Filgrastim/ Dextrose (Neupogen Inj/ D5W Inj) 26.6 ml @ 106.4 mls/ hr DAILY@14 IV 05/31/17 14:00 06/17/17 13:32 Acyclovir (Zovirax 5% Oint (15 Gm)) 1 applic BID TOPICAL 06/01/17 15:00 06/13/17 09:45 Multi-Ingredient Mouthwash/Gargle 5 ml 5 ml QID SWISH-SWAL 06/03/17 13:00 06/18/17 09:38 Aztreonam 1000 mg/ Sodium Chloride 100 ml @ 200 mls/hr Q8H IV 06/04/17 12:00 06/18/17 05:11 Vancomycin HCl/ Sodium Chloride (Vancomycin Inj/ NS 250 ml Inj) 250 ml @ 250 mls/hr Q24H IV 06/05/17 05:00 06/18/17 05:48 Valacyclovir HCl (Valtrex) 1,000 mg Q8HR PO 06/04/17 14:15 06/18/17 05:12 Heparin Sodium (Porcine) (Heparin Central Flush) 200 units DAILY IV FLUSH 06/06/17 09:00 06/15/17 17:15 Sodium Chloride (NS Flush) 5 ml UNSCH PRN IV FLUSH SEE PROTOCOL TABLE 06/06/17 07:00 06/07/17 22:56 Heparin Sodium (Porcine) (Heparin Central Flush) 200 units UNSCH PRN IV FLUSH SEE PROTOCOL TABLE 06/06/17 07:00 06/07/17 22:56 Sodium Chloride (NS Flush) 5 ml UNSCH PRN IV FLUSH NEEDED 06/06/17 07:00 06/07/17 04:59 Sodium Chloride (NS Flush) 5 ml UNSCH PRN IV FLUSH SEE PROTOCOL TABLE 06/06/17 07:00 06/17/17 09:33 Amiodarone HCl (Cordarone) 200 mg BID PO 06/11/17 21:00 06/18/17 09:39 Eltrombopag (Promacta) 150 mg DAILY@06 PO 06/13/17 06:00 06/18/17 05:11 Methylprednisolone (Medrol) 10 mg DAILY PO 06/17/17 09:00 06/17/17 09:32 Pantoprazole Sodium (Protonix) 40 mg DAILY PO 06/17/17 09:00 06/18/17 09:39 Objective Remarks GENERAL: Elderly female sitting up in bed in [facility]. 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 HEAD: Normocephalic. EYES: No injection or drainage. NECK: Supple, trachea midline. CARDIOVASCULAR: +S1/S2 RESPIRATORY: Breath sounds equal bilaterally. No accessory muscle use. GASTROINTESTINAL: Abdomen soft, non-tender, nondistended. EXTREMITIES: No cyanosis. NEUROLOGICAL: aox3. normal speech. moving all extremities. Assessment/Plan Problem List: (1) Pancytopenia Status: Acute Plan: -- +aplastic anemia -- bone marrow biopsy results show aplastic anemia -- s/p ATG and cyclosporine Assessment 82-year-old female with aplastic anemia s/p ATG and cyclosporine. Plan 1. 1 unit platelets 2. continue Medrol at 10mg PO daily 3. continue antibiotics Attending Statement The exam, history, and the medical decision-making described in the above note were completed with the assistance of the mid-level provider. I reviewed and agree with the findings presented. I attest that I had a [id number] encounter with the patient on the same day, and personally performed and documented my assessment and findings in the medical record. No new symptoms, no bleeding. Transfuse platelet today. Rash improved with steroid. Cecilia Hughes Jun 18, 2017 10:09 Aureliano Alvarado MD Jun 18, 2017 11:06
--- NOTE | 2017-06-18 10:09 | HHI.PR ---
Subjective Subjective Remarks no diarrhea, formed stool today appetite better Temp last night max 100.2 no cough no cp no sob Review of Systems Constitutional Constitutional Remarks 12 point ros completed, negative except as noted above Hematologic/Lymphatic Heme/Lymph: Ecchymosis Vitals/Results Intake & Output 06/17/17 06/17/17 06/18/17 15:00 23:00 07:00 Intake Total 871 ml 250 ml 500 ml Output Total 1000 ml 800 ml Balance -129 ml 250 ml -300 ml Intake Oral 720 ml 250 ml 500 ml IV Total 151 ml Output Urine Total 1000 ml 800 ml # Voids 2 # Bowel Movements 1 Vital Signs Vital Signs Date Time Temp Pulse Resp B/P Pulse Ox O2 Delivery O2 Flow Rate FiO2 06/18/17 08:30 99.0 67 16 132/63 95 06/18/17 04:00 99.8 68 16 140/60 97 06/18/17 00:00 98.8 63 16 141/65 95 06/17/17 20:00 98.0 65 16 119/56 95 06/17/17 18:52 64 06/17/17 16:00 98.5 102 15 93/66 96 06/17/17 12:00 100.2 111 18 122/56 92 CBC/BMP: 06/18/17 0500 06/18/17 0500 Lab Results Laboratory Tests Test 06/18/17 06/18/17 05:00 07:25 White Blood Count 1.5 TH/MM3 Red Blood Count 2.79 MIL/MM3 Hemoglobin 8.2 GM/DL Hematocrit 23.4 % Mean Corpuscular Volume 83.8 FL Mean Corpuscular Hemoglobin 29.4 PG Mean Corpuscular Hemoglobin 35.1 % Concent Red Cell Distribution Width 14.2 % Platelet Count 12 TH/MM3 Mean Platelet Volume 7.6 FL Neutrophils (%) (Auto) % Lymphocytes (%) (Auto) % Monocytes (%) (Auto) % Eosinophils (%) (Auto) % Basophils (%) (Auto) % Neutrophils # (Auto) TH/MM3 Lymphocytes # (Auto) TH/MM3 Monocytes # (Auto) TH/MM3 Eosinophils # (Auto) TH/MM3 Basophils # (Auto) TH/MM3 CBC Comment AUTO DIFF Differential Total Cells 100 Counted Band Neutrophils % 1 % Lymphocytes % 98 % Monocytes % 1 % Neutrophils # (Manual) 0.0 TH/MM3 Differential Comment FINAL DIFF MANUAL Platelet Estimate RARE Platelet Morphology Comment NORMAL Sodium Level 140 MEQ/L Potassium Level 3.0 MEQ/L Chloride Level 102 MEQ/L Carbon Dioxide Level 30.6 MEQ/L Anion Gap 7 MEQ/L Blood Urea Nitrogen 15 MG/DL Creatinine 0.55 MG/DL Estimat Glomerular Filtration 106 ML/MIN Rate Random Glucose 80 MG/DL Calcium Level 7.7 MG/DL Blood Bank Comment Physical Exam General General Appearance: Well Developed, No Acute Distress, Comfortable, Pale Eyes Eye Exam: Pupils Equal, Pupils Reactive Ears & Nose Ears & Nose Exam: Nasal Mucosa [place] Throat Throat Exam: Oral Mucosa [place] & Moist Throat Remarks herpes lesion top lip now off Neck Neck Exam: Trachea Midline Pulmonary Resp Exam: Clear Bilaterally, Breath Sounds Equal, No Distress Cardiology CV Exam: Regular, Good Perfusion, Murmur Gastrointestinal/Abdomen GI Exam: Soft, Non-Tender, Bowel Sounds Present, Positive Bowel Movement, Non- Distended Hematologic/Lymphatic Heme Exam: Ecchymosis Musculoskeletal MS Exam: Normal Tone MS Remarks erythematous, discoloration both legs, mild edema Integumentary Skin Exam: Warm, Dry Skin Remarks rash markedly improved, not more brownish discoloration palmar rash improved discoloration both legs, erythematous/brownish Extremeties Extremities Exam: No Edema, Pedal Pulses Palpable Neurologic Neuro Exam: Alert, Awake, Oriented, Speech Clear, 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, Apparel Designer Equal, 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 Psychiatric Psych Exam: Appropriate Responses PUD Prophylasis PUD Prophylaxis: Protonix Assessment/Plan Assessment/Plan Right hallux pain/ecchymosis/swelling, status post bedside procedure 11/20/2016 pancytopenia 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, secondary to herpes simplex type I, improved Right external ear cellulitis, Leukopenia, No evidence of gout Symptomatic anemia, Improved after transfusion Severe profound symptomatic thrombocytopenia, given platelets again today Uncontrolled aplastic anemia Acellular bone marrow per biopsy report Status post bone marrow biopsy 05/18/17 Recent diagnosis of atrial fibrillation Recent diagnosis of gastric erosions Maculopapular rash, poss drug induced, Cefepime dc Management Podiatry input appreciated, signed off wound culture staph hominis appreciate ID input Topical Zovirax to upper lip Follow blood culture reports Mupirocin cream for both nostrils Acyclovir dc, now on Valtrex On Vancomycin Cefepime dc'd due to rash Continue with Azactam Rash, Poss drug eruption resolving Steroids being weaned off Diarrhea, 1 episode-resolved continue to monitor Hypokalemia, currently on replacement Continue to monitor electrolytes BP control, continue home meds Lisinopril for blood pressure control Lasix 20 mg twice a day oncology following continue neupogen H&H stable, hemoglobin 8.2/23.4 Platelets 12-1 unit to be given WBC 1.5 bone marrow biopsy results show aplastic anemia s/p ATG and cyclosporine started on Promacta 06/12 Continue treatment as above, patient not ready for discharge until bone marrow recovery afib RVR, received dig Had Echo, EF okay continue Amiodarone 200 mg po bid Rate better controlled Was evaluated by cardiology during most previous admission stable Labs in the morning Condition guarded D/W RN D/W D/W pt This patient was seen by myself and Dr. Swanson, this note is written on her behalf. Sofia Morris Jun 18, 2017 10:09
[2017-06-18] MEDS: methylPREDNISolone 4 MG TAB PO SCH (10:42)
[2017-06-18] MEDS: SODIUM CHLORIDE 0.9% FLUSH 10 ML FLUSH IV FLUSH SCH ×2 (10:43→22:14)
[2017-06-18] MEDS ORDERED: POTASSIUM CHLORIDE 10 MEQ CONTROLLED RELEASE TAB PO ONE (11:00)
[2017-06-18] MEDS: FILGRASTIM INJ 480 MCG in DEXTROSE 5% IN WATER INJ 25 ML IV SCH ×2 (14:32)
[2017-06-18] MEDS: PICC Daily Heparin 100 unit/mL Lock Flush IV FLUSH SCH (15:13)
[2017-06-19] VITALS (9 sets, daily range): BP systolic 121–153; BP diastolic 60–86; PULSE 65–73; RESP 16–18; TEMP 97.2–99.5; O2SAT 94–98
[2017-06-19] MEDS ORDERED: PHARMACY ORDERED LAB ONE (04:45)
[2017-06-19] MEDS: AZTREONAM INJ 1,000 MG in SODIUM CHLORIDE 0.9% INJ 100 ML IV SCH ×3 (04:56→21:17)
[2017-06-19] MEDS: VANCOMYCIN 1,000 MG/NS 250 ML IV SCH ×2 (04:56)
[2017-06-19] MEDS: LEVOTHYROXINE SODIUM 50 MCG TAB PO SCH (04:57)
[2017-06-19] MEDS: CLOTRIMAZOLE 10 MG TROCHE BUCCAL SCH ×5 (04:57→21:19)
[2017-06-19] MEDS: ELTROMBOPAG 50 MG TAB PO SCH (04:57)
[2017-06-19] MEDS: valACYclovir HCL 500 MG TAB PO SCH ×3 (04:57→21:19)
[2017-06-19 06:01] LABS: BASOPHIL % 0.1 % (0.0-2.0); EOSINOPHIL % 0.2 % (0.0-4.0); HEMATOCRIT 22.3 % (35.0-46.0); LYMPH % 95.3 % (9.0-44.0); LYMPHOCYTE # 1.5 TH/MM3 (1.0-4.8); MEAN CELL VOLUME 84.1 FL (80.0-100.0); MEAN CORPUSCULAR HEMOGLOBIN 29.2 PG (27.0-34.0); MEAN CORPUSCULAR HGB CONC 34.7 % (32.0-36.0); MONO % 2.3 % (0.0-8.0); NEUT % 2.1 % (16.0-70.0); PLATELET COUNT 22 TH/MM3 (150-450); RED BLOOD COUNT 2.65 MIL/MM3 (4.00-5.30); WHITE BLOOD COUNT 1.6 TH/MM3 (4.0-11.0)
[2017-06-19 06:06] LABS: BICARBONATE 30.6 MEQ/L (21.0-32.0)
[2017-06-19 06:09] LABS: POTASSIUM 2.8 MEQ/L (3.5-5.1)
[2017-06-19 06:10] LABS: HEMO FLAGS AUTO DIFF
[2017-06-19 06:59] LABS: BANDS 1 % (0-6); MYELOCYTES 1 % (0-0); NEUTROPHIL # MANUAL DIFF 0.1 TH/MM3 (1.8-7.7); PLATELET ESTIMATE SMEAR LOW (NORMAL); PLATELET MORPHOLOGY NORMAL (NORMAL); POLYS (SEG NEUTROPHILS) 2 % (16-70); SCAN/DIFF FINAL DIFF MANUAL; WBC DIFF SAMPLE 100
[2017-06-19] MEDS ORDERED: POTASSIUM CHLOR 40 MEQ PREMIX 100 ML IV ONE (08:00)
[2017-06-19] MEDS: NYSTAT/DIPHENHY/LIDO MOUTHWASH (Adult) 120ML SWISH-SWAL SCH ×4 (08:17→21:20)
[2017-06-19] MEDS: PANTOPRAZOLE SOD 40 MG DELAYED RELEASE TAB PO SCH (08:21)
[2017-06-19] MEDS: methylPREDNISolone 4 MG TAB PO SCH (08:21)
[2017-06-19] MEDS: ACYCLOVIR 5% OINT 15 APPLIC/15 GM TUBE TOPICAL SCH ×2 (08:22→21:20)
[2017-06-19] MEDS: PRAVASTATIN SOD 10 MG TAB PO SCH (08:22)
[2017-06-19] MEDS: AMIODARONE 200 MG TAB PO SCH ×2 (08:22→21:19)
[2017-06-19] MEDS: SODIUM CHLORIDE 0.9% FLUSH 10 ML FLUSH IV FLUSH SCH ×2 (08:22→21:17)
[2017-06-19] MEDS: DOCUSATE SODIUM 50 MG/SENNA 8.6 MG TAB PO SCH ×2 (08:22→21:00)
[2017-06-19] MEDS ORDERED: POTASSIUM CHLORIDE INJ 30 MEQ in SODIUM CHLORIDE 0.9% INJ 100 ML IV SCH (10:15)
--- NOTE | 2017-06-19 10:19 | PD.ONC.PN ---
Subjective Subjective Remarks Afebrile overnight. patient resting in bed in nad. no diarrhea. Had small BM this morning. walked the halls yesterday. Objective Data Date Time Temp Pulse Resp B/P Pulse Ox O2 Delivery O2 Flow Rate FiO2 06/19/17 04:00 99.1 70 18 139/67 94 06/19/17 00:00 97.2 65 18 146/86 95 06/18/17 20:00 97.9 61 18 122/60 95 06/18/17 16:00 97.7 64 18 128/64 96 06/18/17 11:54 98.2 65 16 98/52 95 06/18/17 11:27 98.4 64 16 121/60 96 06/18/17 10:44 98.2 70 20 108/59 96 06/19/17 06/19/17 06/19/17 07:00 15:00 23:00 Intake Total 120 ml Output Total 200 ml Balance 120 ml -200 ml Result Diagram: 06/19/17 0500 06/19/17 0500 Laboratory Results Laboratory Tests Test 06/19/17 06/19/17 05:00 08:30 White Blood Count 1.6 TH/MM3 Red Blood Count 2.65 MIL/MM3 Hemoglobin 7.8 GM/DL Hematocrit 22.3 % Mean Corpuscular Volume 84.1 FL Mean Corpuscular Hemoglobin 29.2 PG Mean Corpuscular Hemoglobin 34.7 % Concent Red Cell Distribution Width 14.0 % Platelet Count 22 TH/MM3 Mean Platelet Volume 6.7 FL Neutrophils (%) (Auto) 2.1 % Lymphocytes (%) (Auto) 95.3 % Monocytes (%) (Auto) 2.3 % Eosinophils (%) (Auto) 0.2 % Basophils (%) (Auto) 0.1 % Neutrophils # (Auto) 0.0 TH/MM3 Lymphocytes # (Auto) 1.5 TH/MM3 Monocytes # (Auto) 0.0 TH/MM3 Eosinophils # (Auto) 0.0 TH/MM3 Basophils # (Auto) 0.0 TH/MM3 CBC Comment AUTO DIFF Differential Total Cells 100 Counted Neutrophils % (Manual) 2 % Band Neutrophils % 1 % Lymphocytes % 93 % Monocytes % 3 % Neutrophils # (Manual) 0.1 TH/MM3 Myelocytes 1 % Differential Comment FINAL DIFF MANUAL Platelet Estimate LOW Platelet Morphology Comment NORMAL Red Cell Morphology Comment NORMAL Sodium Level 139 MEQ/L Potassium Level 2.8 MEQ/L Chloride Level 102 MEQ/L Carbon Dioxide Level 30.6 MEQ/L Anion Gap 6 MEQ/L Blood Urea Nitrogen 15 MG/DL Creatinine 0.51 MG/DL Estimat Glomerular Filtration 115 ML/MIN Rate Random Glucose 81 MG/DL Calcium Level 7.6 MG/DL Blood Type AB NEGATIVE Antibody Screen NEGATIVE Crossmatch Irradiated/Leukocyte-Reduced RBC Blood Bank Comment Administered Medications Medications (Trade) Dose Ordered Sig/José Route PRN Reason Start Time Stop Time Status Last Admin Dose Admin Sodium Chloride (NS Flush) 2 ml UNSCH PRN IV FLUSH FLUSH AFTER USING IV ACCESS 05/18/17 10:15 05/30/17 10:15 Sodium Chloride (NS Flush) 2 ml BID IV FLUSH 05/18/17 21:00 06/19/17 08:22 Ondansetron HCl (Zofran Inj) 4 mg Q6H PRN IVP NAUSEA OR VOMITING 05/18/17 10:15 06/08/17 04:56 Senna/Docusate Sodium (Rosalinda-Colace) 1 tab BID PO 05/18/17 21:00 06/15/17 20:22 Levothyroxine Sodium (Synthroid) 50 mcg DAILY@0600 PO 05/19/17 06:00 06/19/17 04:57 Pravastatin Sodium (Pravachol) 10 mg DAILY PO 05/19/17 09:00 06/19/17 08:22 Diphenhydramine HCl (Benadryl) 25 mg Q4H PRN PO FOR BLOOD PRODUCTS 05/19/17 01:30 06/18/17 09:39 Acetaminophen (Tylenol) 650 mg Q4H PRN PO BLOOD PRODUCTS 05/19/17 01:30 06/18/17 09:39 Furosemide (Lasix) 20 mg BID@09,18 PO 05/23/17 18:00 Hold 06/08/17 09:49 Potassium Chloride (KCl) 20 meq BID PO 05/28/17 21:00 Hold 06/08/17 09:49 Mupirocin 1 applic 1 applic BID EACH NARE 05/30/17 15:00 Hold 06/05/17 21:44 Filgrastim/ Dextrose (Neupogen Inj/ D5W Inj) 26.6 ml @ 106.4 mls/ hr DAILY@14 IV 05/31/17 14:00 06/18/17 14:32 Acyclovir (Zovirax 5% Oint (15 Gm)) 1 applic BID TOPICAL 06/01/17 15:00 06/13/17 09:45 Multi-Ingredient Mouthwash/Gargle 5 ml 5 ml QID SWISH-SWAL 06/03/17 13:00 06/19/17 08:17 Aztreonam 1000 mg/ Sodium Chloride 100 ml @ 200 mls/hr Q8H IV 06/04/17 12:00 06/19/17 04:56 Vancomycin HCl/ Sodium Chloride (Vancomycin Inj/ NS 250 ml Inj) 250 ml @ 250 mls/hr Q24H IV 06/05/17 05:00 06/19/17 04:56 Valacyclovir HCl (Valtrex) 1,000 mg Q8HR PO 06/04/17 14:15 06/19/17 04:57 Heparin Sodium (Porcine) (Heparin Central Flush) 200 units DAILY IV FLUSH 06/06/17 09:00 06/18/17 15:13 Sodium Chloride (NS Flush) 5 ml UNSCH PRN IV FLUSH SEE PROTOCOL TABLE 06/06/17 07:00 06/07/17 22:56 Heparin Sodium (Porcine) (Heparin Central Flush) 200 units UNSCH PRN IV FLUSH SEE PROTOCOL TABLE 06/06/17 07:00 06/07/17 22:56 Sodium Chloride (NS Flush) 5 ml UNSCH PRN IV FLUSH NEEDED 06/06/17 07:00 06/07/17 04:59 Sodium Chloride (NS Flush) 5 ml UNSCH PRN IV FLUSH SEE PROTOCOL TABLE 06/06/17 07:00 06/17/17 09:33 Amiodarone HCl (Cordarone) 200 mg BID PO 06/11/17 21:00 06/19/17 08:22 Eltrombopag (Promacta) 150 mg DAILY@06 PO 06/13/17 06:00 06/19/17 04:57 Methylprednisolone (Medrol) 10 mg DAILY PO 06/17/17 09:00 06/19/17 08:21 Pantoprazole Sodium 40 mg 40 mg DAILY PO 06/17/17 09:00 06/19/17 08:21 Potassium Chloride (KCl 40 Meq Premix Inj) 100 ml @ 25 mls/hr ONCE ONCE IV 06/19/17 08:00 06/19/17 11:59 06/19/17 08:17 Objective Remarks GENERAL: Elderly female supine in bed resting. 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 HEAD: Normocephalic. EYES: No injection or drainage. NECK: Supple, trachea midline. CARDIOVASCULAR: +S1/S2 RESPIRATORY: Breath sounds equal bilaterally. No accessory muscle use. GASTROINTESTINAL: Abdomen soft, non-tender, nondistended. EXTREMITIES: No cyanosis. NEUROLOGICAL: awake and alert, normal speech. Assessment/Plan Problem List: (1) Pancytopenia Status: Acute Plan: -- +aplastic anemia -- bone marrow biopsy results show aplastic anemia -- s/p ATG and cyclosporine Assessment 82-year-old female with aplastic anemia s/p ATG and cyclosporine. Plan 1. 1 unit pRBC today 2. continue Medrol at 10mg PO daily 3. continue antibiotics Attending Statement The exam, history, and the medical decision-making described in the above note were completed with the assistance of the mid-level provider. I reviewed and agree with the findings presented. I attest that I had a [id number] encounter with the patient on the same day, and personally performed and documented my assessment and findings in the medical record. No bleeding. Hgb trended lower. Transfuse PRBC today. Continue steroids, monitor CBC. Cecilia Hughes Jun 19, 2017 10:19 Aureliano Alvarado MD Jun 19, 2017 11:04
[2017-06-19] MEDS: diphenhydrAMINE HCL 25 MG CAP PO PRN (10:47)
[2017-06-19] MEDS: ACETAMINOPHEN 325 MG TAB PO PRN (10:48)
--- NOTE | 2017-06-19 11:33 | HHI.PR ---
Subjective Subjective Remarks no diarrhea, formed stool today appetite better Temp last night max 100.2 no cough no cp no sob (Sofia Morris) Review of Systems Constitutional Constitutional Remarks 12 point ros completed, negative except as noted above (Sofia Morris) Hematologic/Lymphatic Heme/Lymph: Ecchymosis (Sofia Morris) Vitals/Results Intake & Output 06/18/17 06/18/17 06/19/17 15:00 23:00 07:00 Intake Total 720 ml 240 ml 120 ml Output Total 800 ml Balance -80 ml 240 ml 120 ml Intake Oral 720 ml 240 ml 120 ml Output Urine Total 800 ml # Voids 2 2 1 # Bowel Movements 2 0 0 Vital Signs Vital Signs Date Time Temp Pulse Resp B/P Pulse Ox O2 Delivery O2 Flow Rate FiO2 06/19/17 08:00 98.7 73 16 149/84 98 06/19/17 04:00 99.1 70 18 139/67 94 06/19/17 00:00 97.2 65 18 146/86 95 06/18/17 20:00 97.9 61 18 122/60 95 06/18/17 16:00 97.7 64 18 128/64 96 06/18/17 11:54 98.2 65 16 98/52 95 (Sofia Morris) CBC/BMP: 06/19/17 0500 06/19/17 0500 Lab Results Laboratory Tests Test 06/19/17 06/19/17 05:00 08:30 White Blood Count 1.6 TH/MM3 Red Blood Count 2.65 MIL/MM3 Hemoglobin 7.8 GM/DL Hematocrit 22.3 % Mean Corpuscular Volume 84.1 FL Mean Corpuscular Hemoglobin 29.2 PG Mean Corpuscular Hemoglobin 34.7 % Concent Red Cell Distribution Width 14.0 % Platelet Count 22 TH/MM3 Mean Platelet Volume 6.7 FL Neutrophils (%) (Auto) 2.1 % Lymphocytes (%) (Auto) 95.3 % Monocytes (%) (Auto) 2.3 % Eosinophils (%) (Auto) 0.2 % Basophils (%) (Auto) 0.1 % Neutrophils # (Auto) 0.0 TH/MM3 Lymphocytes # (Auto) 1.5 TH/MM3 Monocytes # (Auto) 0.0 TH/MM3 Eosinophils # (Auto) 0.0 TH/MM3 Basophils # (Auto) 0.0 TH/MM3 CBC Comment AUTO DIFF Differential Total Cells 100 Counted Neutrophils % (Manual) 2 % Band Neutrophils % 1 % Lymphocytes % 93 % Monocytes % 3 % Neutrophils # (Manual) 0.1 TH/MM3 Myelocytes 1 % Differential Comment FINAL DIFF MANUAL Platelet Estimate LOW Platelet Morphology Comment NORMAL Red Cell Morphology Comment NORMAL Sodium Level 139 MEQ/L Potassium Level 2.8 MEQ/L Chloride Level 102 MEQ/L Carbon Dioxide Level 30.6 MEQ/L Anion Gap 6 MEQ/L Blood Urea Nitrogen 15 MG/DL Creatinine 0.51 MG/DL Estimat Glomerular Filtration 115 ML/MIN Rate Random Glucose 81 MG/DL Calcium Level 7.6 MG/DL Blood Type AB NEGATIVE Antibody Screen NEGATIVE Crossmatch Irradiated/Leukocyte-Reduced RBC Blood Bank Comment (Sofia Morris) Physical Exam General General Appearance: Well Developed, No Acute Distress, Comfortable, Pale (Sofia Morris) Eyes Eye Exam: Pupils Equal, Pupils Reactive (Sofia Morris) Ears & Nose Ears & Nose Exam: Nasal Mucosa [place] (Sofia Morris) Throat Throat Exam: Oral Mucosa [place] & Moist Throat Remarks herpes lesion top lip now off (Sofia MorrisP) Neck Neck Exam: Trachea Midline (Sofia Morris) Pulmonary Resp Exam: Clear Bilaterally, Breath Sounds Equal, No Distress (Sofia MorrisP) Cardiology CV Exam: Regular, Good Perfusion, Murmur (Sofia Morris) Gastrointestinal/Abdomen GI Exam: Soft, Non-Tender, Bowel Sounds Present, Positive Bowel Movement, Non- Distended (Sofia MorrisP) Hematologic/Lymphatic Heme Exam: Ecchymosis (Sofia Morris) Musculoskeletal MS Exam: Normal Tone MS Remarks erythematous, discoloration both legs, mild edema (Sofia MorrisP) Integumentary Skin Exam: Warm, Dry Skin Remarks rash markedly improved, not more brownish discoloration palmar rash improved discoloration both legs, erythematous/brownish (Sofia MorrisP) Extremeties Extremities Exam: No Edema, Pedal Pulses Palpable (Sofia MorrisP) Neurologic Neuro Exam: Alert, Awake, Oriented, Speech Clear, 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, Naphthalene Operator Helper Equal, 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 (Sofia Morris) Psychiatric Psych Exam: Appropriate Responses (Sofia Morris) PUD Prophylasis PUD Prophylaxis: Protonix (Sofia Morris) Assessment/Plan Assessment/Plan Right hallux pain/ecchymosis/swelling, status post bedside procedure 11/20/2016 pancytopenia 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, secondary to herpes simplex type I, improved Right external ear cellulitis, Leukopenia, No evidence of gout Symptomatic anemia, Improved after transfusion Severe profound symptomatic thrombocytopenia, given platelets again today Uncontrolled aplastic anemia Acellular bone marrow per biopsy report Status post bone marrow biopsy 05/18/17 Recent diagnosis of atrial fibrillation Recent diagnosis of gastric erosions Maculopapular rash, poss drug induced, Cefepime dc Management Podiatry input appreciated, signed off wound culture staph hominis appreciate ID input Topical Zovirax to upper lip Follow blood culture reports Mupirocin cream for both nostrils Acyclovir dc, now on Valtrex On Vancomycin Cefepime dc'd due to rash Continue with Azactam Rash, Poss drug eruption resolving Steroids being weaned off Diarrhea, 1 episode-resolved continue to monitor Hypokalemia, currently on replacement Continue to monitor electrolytes BP control, continue home meds Lisinopril for blood pressure control Lasix 20 mg twice a day oncology following continue neupogen H&H stable, hemoglobin 8.2/23.4 Platelets 12-1 unit to be given WBC 1.5 bone marrow biopsy results show aplastic anemia s/p ATG and cyclosporine started on Promacta 06/12 Continue treatment as above, patient not ready for discharge until bone marrow recovery afib RVR, received dig Had Echo, EF okay continue Amiodarone 200 mg po bid Rate better controlled Was evaluated by cardiology during most previous admission stable Labs in the morning Condition guarded D/W RN D/W D/W pt This patient was seen by myself and Dr. Swanson, this note is written on her behalf. (Sofia Morris) Assessment/Plan pt seen and examined labs reviewed meds reviewed K replacement blood transfusion dw pt dw rn dw pairer about plan of care (Zaina Swanson MD) Sofia Morris Jun 19, 2017 11:33 Zaina Swanson MD Jun 19, 2017 12:18
[2017-06-19] MEDS ORDERED: POTASSIUM CHLORIDE 20 MEQ CONTROLLED RELEASE TAB PO ONE (12:00)
--- NOTE | 2017-06-19 12:18 | HHI.PR ---
Subjective Subjective Remarks loose stool today no fever doesn't like the food daughter at [facility], upset about the food pt. to receive PRBC today Review of Systems Constitutional Constitutional Remarks 12 point ros completed, negative except as noted above Hematologic/Lymphatic Heme/Lymph: Ecchymosis Vitals/Results Intake & Output 06/18/17 06/18/17 06/19/17 15:00 23:00 07:00 Intake Total 720 ml 240 ml 120 ml Output Total 800 ml Balance -80 ml 240 ml 120 ml Intake Oral 720 ml 240 ml 120 ml Output Urine Total 800 ml # Voids 2 2 1 # Bowel Movements 2 0 0 Vital Signs Vital Signs Date Time Temp Pulse Resp B/P Pulse Ox O2 Delivery O2 Flow Rate FiO2 06/19/17 12:10 99.1 66 16 121/60 94 06/19/17 11:32 98.9 69 16 124/60 95 06/19/17 08:00 98.7 73 16 149/84 98 06/19/17 04:00 99.1 70 18 139/67 94 06/19/17 00:00 97.2 65 18 146/86 95 06/18/17 20:00 97.9 61 18 122/60 95 06/18/17 16:00 97.7 64 18 128/64 96 CBC/BMP: 06/19/17 0500 06/19/17 0500 Lab Results Laboratory Tests Test 06/19/17 06/19/17 05:00 08:30 White Blood Count 1.6 TH/MM3 Red Blood Count 2.65 MIL/MM3 Hemoglobin 7.8 GM/DL Hematocrit 22.3 % Mean Corpuscular Volume 84.1 FL Mean Corpuscular Hemoglobin 29.2 PG Mean Corpuscular Hemoglobin 34.7 % Concent Red Cell Distribution Width 14.0 % Platelet Count 22 TH/MM3 Mean Platelet Volume 6.7 FL Neutrophils (%) (Auto) 2.1 % Lymphocytes (%) (Auto) 95.3 % Monocytes (%) (Auto) 2.3 % Eosinophils (%) (Auto) 0.2 % Basophils (%) (Auto) 0.1 % Neutrophils # (Auto) 0.0 TH/MM3 Lymphocytes # (Auto) 1.5 TH/MM3 Monocytes # (Auto) 0.0 TH/MM3 Eosinophils # (Auto) 0.0 TH/MM3 Basophils # (Auto) 0.0 TH/MM3 CBC Comment AUTO DIFF Differential Total Cells 100 Counted Neutrophils % (Manual) 2 % Band Neutrophils % 1 % Lymphocytes % 93 % Monocytes % 3 % Neutrophils # (Manual) 0.1 TH/MM3 Myelocytes 1 % Differential Comment FINAL DIFF MANUAL Platelet Estimate LOW Platelet Morphology Comment NORMAL Red Cell Morphology Comment NORMAL Sodium Level 139 MEQ/L Potassium Level 2.8 MEQ/L Chloride Level 102 MEQ/L Carbon Dioxide Level 30.6 MEQ/L Anion Gap 6 MEQ/L Blood Urea Nitrogen 15 MG/DL Creatinine 0.51 MG/DL Estimat Glomerular Filtration 115 ML/MIN Rate Random Glucose 81 MG/DL Calcium Level 7.6 MG/DL Blood Type AB NEGATIVE Antibody Screen NEGATIVE Crossmatch Irradiated/Leukocyte-Reduced RBC Blood Bank Comment Physical Exam General General Appearance: Well Developed, No Acute Distress, Comfortable, Pale Eyes Eye Exam: Pupils Equal, Pupils Reactive Ears & Nose Ears & Nose Exam: Nasal Mucosa Amity Throat Throat Exam: Oral Mucosa Amity & Moist Throat Remarks herpes lesion top lip now off Neck Neck Exam: Trachea Midline Pulmonary Resp Exam: Clear Bilaterally, Breath Sounds Equal, No Distress Cardiology CV Exam: Regular, Good Perfusion, Murmur Gastrointestinal/Abdomen GI Exam: Soft, Non-Tender, Bowel Sounds Present, Positive Bowel Movement, Non- Distended Hematologic/Lymphatic Heme Exam: Ecchymosis Musculoskeletal MS Exam: Normal Tone MS Remarks erythematous, discoloration both legs, mild edema Integumentary Skin Exam: Warm, Dry Skin Remarks rash markedly improved, not more brownish discoloration palmar rash improved discoloration both legs, erythematous/brownish Extremeties Extremities Exam: No Edema, Pedal Pulses Palpable Neurologic Neuro Exam: Alert, Awake, Oriented, Speech Clear, 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, Photoflash Powder Mixer Equal, 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 Psychiatric Psych Exam: Appropriate Responses PUD Prophylasis PUD Prophylaxis: Protonix Assessment/Plan Assessment/Plan Right hallux pain/ecchymosis/swelling, status post bedside procedure 11/20/2016 pancytopenia 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, secondary to herpes simplex type I, improved Right external ear cellulitis, Leukopenia, No evidence of gout Symptomatic anemia, Improved after transfusion Severe profound symptomatic thrombocytopenia, given platelets again today Uncontrolled aplastic anemia Acellular bone marrow per biopsy report Status post bone marrow biopsy 05/18/17 Recent diagnosis of atrial fibrillation Recent diagnosis of gastric erosions Maculopapular rash, poss drug induced, Cefepime dc Management Podiatry input appreciated, signed off wound culture staph hominis appreciate ID input Topical Zovirax to upper lip Mupirocin cream for both nostrils Acyclovir dc, now on Valtrex On Vancomycin Cefepime dc'd due to rash Continue with Azactam Rash, Poss drug eruption resolving Steroids being weaned off BP control, continue home meds Lisinopril for blood pressure control Lasix 20 mg twice a day oncology following HH 7.8/22.3 will receive 1 unit today Plat bone marrow biopsy results show aplastic anemia s/p ATG and cyclosporine given Promacta 06/12 Continue treatment as above, patient not ready for discharge until bone marrow recovery afib RVR, received dig Had Echo, EF okay continue Amiodarone 200 mg po bid Rate better controlled Was evaluated by cardiology during most previous admission stable monitor CBC D/W RN D/W D/W pt This patient was seen by myself and Dr. Swanson, this note is written on her behalf. Sofia Morris Jun 19, 2017 12:18
[2017-06-19] MEDS: FILGRASTIM INJ 480 MCG in DEXTROSE 5% IN WATER INJ 25 ML IV SCH ×2 (14:10)
[2017-06-19] MEDS: PICC Daily Heparin 100 unit/mL Lock Flush IV FLUSH SCH (14:35)
[2017-06-19 21:12] LABS: MEAN CORPUSCULAR HGB CONC 36.2 % (32.0-36.0)
[2017-06-19] MEDS: PICC HIT (ADULT) PRN NS Lock Flush IV FLUSH (22:27)
[2017-06-19] MEDS: PICC PRN Heparin 100 units/ml Lock Flush IV FLUSH (22:27)
[2017-06-20] VITALS (7 sets, daily range): BP systolic 93–153; BP diastolic 55–69; PULSE 66–108; RESP 16–18; TEMP 98–99.9; O2SAT 67–96
[2017-06-20] MEDS ORDERED: PHARMACY ORDERED LAB ONE (04:45)
[2017-06-20] MEDS: PICC HIT (ADULT) PRN NS Lock Flush IV FLUSH (04:48)
[2017-06-20] MEDS: PICC HIT (ADULT) Q8H NS Lock Flush IV FLUSH PRN ×2 (04:48→21:33)
[2017-06-20] MEDS: AZTREONAM INJ 1,000 MG in SODIUM CHLORIDE 0.9% INJ 100 ML IV SCH ×3 (04:53→20:47)
[2017-06-20 05:20] LABS: BASOPHIL % 0.1 % (0.0-2.0); EOSINOPHIL % 0.2 % (0.0-4.0); HEMATOCRIT 25.3 % (35.0-46.0); LYMPH % 95.3 % (9.0-44.0); LYMPHOCYTE # 1.4 TH/MM3 (1.0-4.8); MEAN CELL VOLUME 83.1 FL (80.0-100.0); MEAN CORPUSCULAR HEMOGLOBIN 30.1 PG (27.0-34.0); MONO % 2.8 % (0.0-8.0); NEUT % 1.6 % (16.0-70.0); RED BLOOD COUNT 3.04 MIL/MM3 (4.00-5.30); WHITE BLOOD COUNT 1.5 TH/MM3 (4.0-11.0)
[2017-06-20 05:23] LABS: HEMO FLAGS AUTO DIFF
[2017-06-20 05:25] LABS: PLATELET COUNT 13 TH/MM3 (150-450)
[2017-06-20] MEDS: VANCOMYCIN 1,000 MG/NS 250 ML IV SCH ×4 (05:39→17:52)
[2017-06-20 05:43] LABS: BICARBONATE 30.2 MEQ/L (21.0-32.0)
[2017-06-20] MEDS: LEVOTHYROXINE SODIUM 50 MCG TAB PO SCH (05:45)
[2017-06-20] MEDS: CLOTRIMAZOLE 10 MG TROCHE BUCCAL SCH ×5 (05:45→20:48)
[2017-06-20] MEDS: ELTROMBOPAG 50 MG TAB PO SCH (05:45)
[2017-06-20] MEDS: valACYclovir HCL 500 MG TAB PO SCH ×3 (05:45→20:48)
[2017-06-20 05:52] LABS: POTASSIUM 2.8 MEQ/L (3.5-5.1)
[2017-06-20] MEDS ORDERED: POTASSIUM CHLORIDE 20 MEQ PWD PACKET PO SCH (06:30)
[2017-06-20] MEDS: POTASSIUM CHLOR 20 MEQ PREMIX 100 ML IV SCH ×2 (06:56→08:59)
[2017-06-20] MEDS ORDERED: POTASSIUM CHLORIDE 20 MEQ CONTROLLED RELEASE TAB PO SCH ×2 (07:00)
[2017-06-20] MEDS: DOCUSATE SODIUM 50 MG/SENNA 8.6 MG TAB PO SCH ×2 (08:46→20:48)
[2017-06-20] MEDS: ACYCLOVIR 5% OINT 15 APPLIC/15 GM TUBE TOPICAL SCH ×2 (08:46→20:48)
[2017-06-20] MEDS: NYSTAT/DIPHENHY/LIDO MOUTHWASH (Adult) 120ML SWISH-SWAL SCH ×4 (08:58→20:49)
[2017-06-20] MEDS: diphenhydrAMINE HCL 25 MG CAP PO PRN (08:58)
[2017-06-20] MEDS: PRAVASTATIN SOD 10 MG TAB PO SCH (08:58)
[2017-06-20] MEDS: ACETAMINOPHEN 325 MG TAB PO PRN (08:58)
[2017-06-20] MEDS: methylPREDNISolone 4 MG TAB PO SCH (08:58)
[2017-06-20] MEDS: PANTOPRAZOLE SOD 40 MG DELAYED RELEASE TAB PO SCH (08:58)
[2017-06-20] MEDS: AMIODARONE 200 MG TAB PO SCH ×2 (08:58→20:47)
[2017-06-20 08:59] LABS: PLATELET ESTIMATE SMEAR RARE (NORMAL); PLATELET MORPHOLOGY NORMAL (NORMAL); SCAN/DIFF FINAL DIFF MANUAL; WBC DIFF SAMPLE 100
--- NOTE | 2017-06-20 12:40 | PD.ONC.PN ---
Subjective Subjective Remarks Afebrile overnight. Tired of being in the hospital. Wants to go home. Objective Data Date Time Temp Pulse Resp B/P Pulse Ox O2 Delivery O2 Flow Rate FiO2 06/20/17 10:29 98.5 66 18 93/55 96 06/20/17 09:52 98.7 74 18 126/60 96 06/20/17 08:00 98.7 74 18 126/60 96 06/20/17 04:55 99.9 108 16 118/57 96 06/19/17 23:00 99.5 67 16 153/72 95 06/19/17 20:00 99.2 67 17 125/60 97 06/19/17 16:00 97.7 65 18 146/72 96 06/19/17 14:14 98.3 67 16 136/66 95 06/20/17 06/20/17 06/20/17 07:00 15:00 23:00 Intake Total 385 ml Balance 385 ml Result Diagram: 06/20/17 0445 06/20/17 0445 Laboratory Results Laboratory Tests Test 06/20/17 06/20/17 04:45 05:31 White Blood Count 1.5 TH/MM3 Red Blood Count 3.04 MIL/MM3 Hemoglobin 9.2 GM/DL Hematocrit 25.3 % Mean Corpuscular Volume 83.1 FL Mean Corpuscular Hemoglobin 30.1 PG Mean Corpuscular Hemoglobin 36.2 % Concent Red Cell Distribution Width 14.0 % Platelet Count 13 TH/MM3 Mean Platelet Volume 7.6 FL Neutrophils (%) (Auto) 1.6 % Lymphocytes (%) (Auto) 95.3 % Monocytes (%) (Auto) 2.8 % Eosinophils (%) (Auto) 0.2 % Basophils (%) (Auto) 0.1 % Neutrophils # (Auto) 0.0 TH/MM3 Lymphocytes # (Auto) 1.4 TH/MM3 Monocytes # (Auto) 0.0 TH/MM3 Eosinophils # (Auto) 0.0 TH/MM3 Basophils # (Auto) 0.0 TH/MM3 CBC Comment AUTO DIFF Differential Total Cells 100 Counted Lymphocytes % 98 % Monocytes % 2 % Neutrophils # (Manual) 0.0 TH/MM3 Differential Comment FINAL DIFF MANUAL Atypical Lymphocytes % Platelet Estimate RARE Platelet Morphology Comment NORMAL Sodium Level 137 MEQ/L Potassium Level 2.8 MEQ/L Chloride Level 101 MEQ/L Carbon Dioxide Level 30.2 MEQ/L Anion Gap 6 MEQ/L Blood Urea Nitrogen 14 MG/DL Creatinine 0.52 MG/DL Estimat Glomerular Filtration 113 ML/MIN Rate Random Glucose 98 MG/DL Calcium Level 7.5 MG/DL Vancomycin Level Trough 6.3 MCG/ML Blood Bank Comment Administered Medications Medications (Trade) Dose Ordered Sig/José Route PRN Reason Start Time Stop Time Status Last Admin Dose Admin Sodium Chloride (NS Flush) 2 ml UNSCH PRN IV FLUSH FLUSH AFTER USING IV ACCESS 05/18/17 10:15 05/30/17 10:15 Sodium Chloride (NS Flush) 2 ml BID IV FLUSH 05/18/17 21:00 06/19/17 21:17 Ondansetron HCl (Zofran Inj) 4 mg Q6H PRN IVP NAUSEA OR VOMITING 05/18/17 10:15 06/08/17 04:56 Senna/Docusate Sodium (Rosalinda-Colace) 1 tab BID PO 05/18/17 21:00 06/15/17 20:22 Levothyroxine Sodium (Synthroid) 50 mcg DAILY@0600 PO 05/19/17 06:00 06/20/17 05:45 Pravastatin Sodium (Pravachol) 10 mg DAILY PO 05/19/17 09:00 06/20/17 08:58 Diphenhydramine HCl (Benadryl) 25 mg Q4H PRN PO FOR BLOOD PRODUCTS 05/19/17 01:30 06/20/17 08:58 Acetaminophen (Tylenol) 650 mg Q4H PRN PO BLOOD PRODUCTS 05/19/17 01:30 06/20/17 08:58 Furosemide (Lasix) 20 mg BID@09,18 PO 05/23/17 18:00 Hold 06/08/17 09:49 Potassium Chloride (KCl) 20 meq BID PO 05/28/17 21:00 Hold 06/08/17 09:49 Mupirocin 1 applic 1 applic BID EACH NARE 05/30/17 15:00 Hold 06/05/17 21:44 Filgrastim/ Dextrose (Neupogen Inj/ D5W Inj) 26.6 ml @ 106.4 mls/ hr DAILY@14 IV 05/31/17 14:00 06/19/17 14:10 Acyclovir (Zovirax 5% Oint (15 Gm)) 1 applic BID TOPICAL 06/01/17 15:00 06/13/17 09:45 Multi-Ingredient Mouthwash/Gargle 5 ml 5 ml QID SWISH-SWAL 06/03/17 13:00 06/20/17 08:58 Aztreonam/Sodium Chloride (Azactam Inj/NS Inj) 100 ml @ 200 mls/hr Q8H IV 06/04/17 12:00 06/20/17 04:53 Valacyclovir HCl (Valtrex) 1,000 mg Q8HR PO 06/04/17 14:15 06/20/17 05:45 Heparin Sodium (Porcine) (Heparin Central Flush) 200 units DAILY IV FLUSH 06/06/17 09:00 06/19/17 14:35 Sodium Chloride (NS Flush) 5 ml UNSCH PRN IV FLUSH SEE PROTOCOL TABLE 06/06/17 07:00 06/07/17 22:56 Heparin Sodium (Porcine) (Heparin Central Flush) 200 units UNSCH PRN IV FLUSH SEE PROTOCOL TABLE 06/06/17 07:00 06/19/17 22:27 Sodium Chloride (NS Flush) 5 ml UNSCH PRN IV FLUSH NEEDED 06/06/17 07:00 06/20/17 04:48 Sodium Chloride (NS Flush) 5 ml UNSCH PRN IV FLUSH SEE PROTOCOL TABLE 06/06/17 07:00 06/20/17 04:48 Amiodarone HCl (Cordarone) 200 mg BID PO 06/11/17 21:00 06/20/17 08:58 Eltrombopag (Promacta) 150 mg DAILY@06 PO 06/13/17 06:00 06/20/17 05:45 Methylprednisolone (Medrol) 10 mg DAILY PO 06/17/17 09:00 06/20/17 08:58 Pantoprazole Sodium (Protonix) 40 mg DAILY PO 06/17/17 09:00 06/20/17 08:58 Objective Remarks GENERAL: Elderly female upright in bed with daughter at bedside. 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 HEAD: Normocephalic. EYES: No injection or drainage. NECK: Supple, trachea midline. CARDIOVASCULAR: +S1/S2 RESPIRATORY: Breath sounds equal bilaterally. No accessory muscle use. GASTROINTESTINAL: Abdomen soft, non-tender, nondistended. EXTREMITIES: No cyanosis. NEUROLOGICAL: awake and alert, normal speech. moving all extremities. Assessment/Plan Problem List: (1) Pancytopenia Status: Acute Plan: -- +aplastic anemia -- bone marrow biopsy results show aplastic anemia -- s/p ATG and cyclosporine Assessment 82-year-old female with aplastic anemia s/p ATG and cyclosporine. Plan 1. no transfusion today 2. continue Medrol at 10mg PO daily 3. continue antibiotics 4. plan for bone marrow biopsy Attending Statement The exam, history, and the medical decision-making described in the above note were completed with the assistance of the mid-level provider. I reviewed and agree with the findings presented. I attest that I had a [id number] encounter with the patient on the same day, and personally performed and documented my assessment and findings in the medical record. R toe better, no fevers, R ear lobe better, lip better. However ANC <100 Pt eager to go home, son coming in from [place] before going to [facility] for his research. Transfusion requirements are a daily event. Agree to BM biopsy at bedside. Evaluate cause of pancytopenia, unable to exclude medication effect. Cecilia Hughes Jun 20, 2017 12:40 Luna Marie MD Jun 20, 2017 19:27
[2017-06-20] MEDS: SODIUM CHLORIDE 0.9% FLUSH 10 ML FLUSH IV FLUSH SCH ×2 (13:13→20:49)
[2017-06-20] MEDS: FILGRASTIM INJ 480 MCG in DEXTROSE 5% IN WATER INJ 25 ML IV SCH ×2 (13:54)
[2017-06-20] MEDS: PICC Daily Heparin 100 unit/mL Lock Flush IV FLUSH SCH (14:30)
[2017-06-20] MEDS ORDERED: LIDOCAINE HCL 2% 50 ML VIAL NERV BLOCK ONE (14:45)
--- NOTE | 2017-06-20 17:35 | HHI.PR ---
Subjective Subjective Remarks Awake, dangle in bed tired of hospital, family coming Wed. fever low grade, 99.9 appetite good, eats home cooked food. (Fernanda Monroy) Review of Systems Constitutional Constitutional: Fatigue, Weakness (mild) Constitutional Remarks 10 point ROS done positives noted, fever (Fernanda Monroy) Throat Throat Remarks Scabbed one third of lower lip sore, dry, slow improvement (Fernanda Monroy) GI/Abdomen GI/Abdomen Remarks Encourage by mouth fluids (Fernanda Monroy) Hematologic/Lymphatic Heme/Lymph: Ecchymosis (Fernanda Monroy) Integumentary Skin Remarks rt. great toe (Fernanda Monroy) Psychiatric Psychiatric: Normal Mood, Anxiety (mild) (Fernanda Monroy) Vitals/Results Intake & Output 06/19/17 06/19/17 06/20/17 15:00 23:00 07:00 Intake Total 110 ml 385 ml Output Total 600 ml Balance -600 ml 110 ml 385 ml IV Total 110 ml 385 ml Output Urine Total 600 ml Vital Signs Vital Signs Date Time Temp Pulse Resp B/P Pulse Ox O2 Delivery O2 Flow Rate FiO2 06/20/17 10:29 98.5 66 18 93/55 96 06/20/17 09:52 98.7 74 18 126/60 96 06/20/17 08:00 98.7 74 18 126/60 96 06/20/17 04:55 99.9 108 16 118/57 96 06/19/17 23:00 99.5 67 16 153/72 95 06/19/17 20:00 99.2 67 17 125/60 97 (Fernanda Monroy) CBC/BMP: 06/20/17 0445 06/20/17 0445 Lab Results Laboratory Tests Test 06/20/17 06/20/17 04:45 05:31 White Blood Count 1.5 TH/MM3 Red Blood Count 3.04 MIL/MM3 Hemoglobin 9.2 GM/DL Hematocrit 25.3 % Mean Corpuscular Volume 83.1 FL Mean Corpuscular Hemoglobin 30.1 PG Mean Corpuscular Hemoglobin 36.2 % Concent Red Cell Distribution Width 14.0 % Platelet Count 13 TH/MM3 Mean Platelet Volume 7.6 FL Neutrophils (%) (Auto) 1.6 % Lymphocytes (%) (Auto) 95.3 % Monocytes (%) (Auto) 2.8 % Eosinophils (%) (Auto) 0.2 % Basophils (%) (Auto) 0.1 % Neutrophils # (Auto) 0.0 TH/MM3 Lymphocytes # (Auto) 1.4 TH/MM3 Monocytes # (Auto) 0.0 TH/MM3 Eosinophils # (Auto) 0.0 TH/MM3 Basophils # (Auto) 0.0 TH/MM3 CBC Comment AUTO DIFF Differential Total Cells 100 Counted Lymphocytes % 98 % Monocytes % 2 % Neutrophils # (Manual) 0.0 TH/MM3 Differential Comment FINAL DIFF MANUAL Atypical Lymphocytes % Platelet Estimate RARE Platelet Morphology Comment NORMAL Sodium Level 137 MEQ/L Potassium Level 2.8 MEQ/L Chloride Level 101 MEQ/L Carbon Dioxide Level 30.2 MEQ/L Anion Gap 6 MEQ/L Blood Urea Nitrogen 14 MG/DL Creatinine 0.52 MG/DL Estimat Glomerular Filtration 113 ML/MIN Rate Random Glucose 98 MG/DL Calcium Level 7.5 MG/DL Vancomycin Level Trough 6.3 MCG/ML Blood Bank Comment Imaging Remarks Last Impressions Chest X-Ray 05/31/17 0600 Signed Impressions: Service Date/Time: Wednesday, May 31, 2017 05:54 - CONCLUSION: 1. Chronic interstitial lung disease. 2. No new focal pulmonary infiltrates are demonstrated. Maurice Jean Baptiste MD Bone Biopsy CT 05/18/17 1456 Signed Impressions: Service Date/Time: Thursday, May 18, 2017 15:21 - CONCLUSION: 1. Uncomplicated CT guided bone marrow aspirate. 2. Uncomplicated CT guided bone marrow biopsy. Robert Cruz MD FACR PICC Line Insertion 05/18/17 0000 Signed Impressions: Service Date/Time: Thursday, May 18, 2017 13:31 - CONCLUSION: 1. Uncomplicated central venous Power PICC line placement. 2. The PICC line can be used immediately. Meliton Lerma MD (Fernanda Monroy) Physical Exam General General Appearance: Well Developed, No Acute Distress, Comfortable, Pale ( Fernanda Monroy) Eyes Eye Exam: Pupils Equal, Pupils Reactive (Fernanda Monroy. TANK INSPECTOR) Ears & Nose Ears & Nose Exam: Nasal Mucosa Petty (Fernanda Monroy. TANK INSPECTOR) Throat Throat Exam: Oral Mucosa Petty & Moist (pale) (Fernanda Monroy. TANK INSPECTOR) Neck Neck Exam: Trachea Midline (Fernanda Monroy. TANK INSPECTOR) Pulmonary Resp Exam: Clear Bilaterally, Breath Sounds Equal, No Distress (Fernanda Monroy. TANK INSPECTOR) Cardiology CV Exam: Regular, Good Perfusion, Murmur (Fernanda Monroy. TANK INSPECTOR) Gastrointestinal/Abdomen GI Exam: Soft, Non-Tender, Bowel Sounds Present, Positive Bowel Movement, Non- Distended (Fernanda Monroy. TANK INSPECTOR) Hematologic/Lymphatic Heme Exam: Ecchymosis (Fernanda Monroy. TANK INSPECTOR) Musculoskeletal MS Exam: Normal Tone, Atrophy (mild) (Fernanda Monroy. TANK INSPECTOR) Integumentary Skin Exam: Warm, Dry (Fernanda Monroy. TANK INSPECTOR) Extremeties Extremities Exam: No Edema, Pedal Pulses Palpable (Fernanda Monroy. TANK INSPECTOR) Neurologic Neuro Exam: Alert, Awake, Oriented, Speech Clear, 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, Beef Specialist Equal, 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 (Fernanda Monroy M. TANK INSPECTOR) Psychiatric Psych Exam: Appropriate Responses (Fernanda Monroy. TANK INSPECTOR) PUD Prophylasis PUD Prophylaxis: Protonix (Fernanda Monroy. TANK INSPECTOR) Assessment/Plan Assessment/Plan Right hallux pain/ecchymosis/swelling, status post bedside procedure 11/20/2016 pancytopenia 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, secondary to herpes simplex type I, improved Right external ear cellulitis, Leukopenia, No evidence of gout Symptomatic anemia, Improved after transfusion Severe profound symptomatic thrombocytopenia, given platelets again today Uncontrolled aplastic anemia Acellular bone marrow per biopsy report Status post bone marrow biopsy 05/18/17 Recent diagnosis of atrial fibrillation Recent diagnosis of gastric erosions Maculopapular rash, poss drug induced, Cefepime dc Management vitals reviewed , BP 93/55, denies any dizziness labs reviewed, platelet ct. 13, no treatment today, leukopenia appreciate ID input Continue with Azactam Rash, Poss drug eruption resolving, no urticaria BP control, continue home meds Lisinopril for blood pressure control Lasix 20 mg twice a day oncology following plan for another bone marrow biopsy to review for plan of care D/W RN D/W , seen on his behalf D/W pt, tired of hospital and treatments, feels she is not getting better. Family is coming Wed. Wants to go home and spend time with them. Supportive care for her wishes. Poss. Palliative care consult after marrow biopsy. (Fernanda Monroy) Assessment/Plan seen, examined by myself, Dr Espinoza, today Discussed with patient, she is not discouraged, she wants to go home She was encouraged to speak to her oncologist about possible options, including comfort care Discussed with mid level provider The exam, history, and the medical decision-making described in the above note were completed with the assistance of the mid-level provider. I reviewed the findings presented. I attest that I had a [id number] encounter with the patient on the same day, and personally performed and documented my assessment and findings in the medical record. (Elan Espinoza MD) Fernanda Monroy Jun 20, 2017 17:35 Elan Espinoza MD Jun 20, 2017 20:07
[2017-06-20] MEDS: PICC PRN Heparin 100 units/ml Lock Flush IV FLUSH (21:34)
[2017-06-21] VITALS (7 sets, daily range): BP systolic 97–142; BP diastolic 56–65; PULSE 69–107; RESP 16–20; TEMP 97.6–100.8; O2SAT 94–97
[2017-06-21] MEDS: AZTREONAM INJ 1,000 MG in SODIUM CHLORIDE 0.9% INJ 100 ML IV SCH ×3 (04:45→19:23)
[2017-06-21] MEDS: PICC HIT (ADULT) Q8H NS Lock Flush IV FLUSH PRN (04:48)
[2017-06-21] MEDS: PICC HIT (ADULT) PRN NS Lock Flush IV FLUSH (04:48)
[2017-06-21 05:13] LABS: BASOPHIL % 0.1 % (0.0-2.0); EOSINOPHIL % 0.1 % (0.0-4.0); HEMATOCRIT 22.4 % (35.0-46.0); LYMPH % 93.5 % (9.0-44.0); LYMPHOCYTE # 1.1 TH/MM3 (1.0-4.8); MEAN CELL VOLUME 83.4 FL (80.0-100.0); MONO % 4.1 % (0.0-8.0); NEUT % 2.2 % (16.0-70.0); PLATELET COUNT 24 TH/MM3 (150-450); RED BLOOD COUNT 2.69 MIL/MM3 (4.00-5.30); RED CELL DISTRIBUTION WIDTH 14.1 % (11.6-17.2); WHITE BLOOD COUNT 1.2 TH/MM3 (4.0-11.0)
[2017-06-21 05:19] LABS: HEMO FLAGS AUTO DIFF
[2017-06-21] MEDS: VANCOMYCIN 1,000 MG/NS 250 ML IV SCH ×4 (05:48→16:59)
[2017-06-21] MEDS: valACYclovir HCL 500 MG TAB PO SCH ×3 (05:50→21:46)
[2017-06-21] MEDS: ELTROMBOPAG 50 MG TAB PO SCH (05:50)
[2017-06-21] MEDS: CLOTRIMAZOLE 10 MG TROCHE BUCCAL SCH ×5 (05:50→21:46)
[2017-06-21] MEDS: LEVOTHYROXINE SODIUM 50 MCG TAB PO SCH (05:50)
[2017-06-21 06:56] LABS: POLYS (SEG NEUTROPHILS) 1 % (16-70); WBC DIFF SAMPLE 100
[2017-06-21 06:57] LABS: OVALOCYTES 1+ (NORMAL); PLATELET ESTIMATE SMEAR LOW (NORMAL); PLATELET MORPHOLOGY NORMAL (NORMAL); SCAN/DIFF FINAL DIFF MANUAL; STOMATOCYTES 1+ (NORMAL)
[2017-06-21] MEDS: PANTOPRAZOLE SOD 40 MG DELAYED RELEASE TAB PO SCH (08:26)
[2017-06-21] MEDS: AMIODARONE 200 MG TAB PO SCH ×2 (08:27→21:46)
[2017-06-21] MEDS: methylPREDNISolone 4 MG TAB PO SCH (08:27)
[2017-06-21] MEDS: PRAVASTATIN SOD 10 MG TAB PO SCH (08:27)
[2017-06-21] MEDS: SODIUM CHLORIDE 0.9% FLUSH 10 ML FLUSH IV FLUSH SCH ×2 (08:28→20:13)
[2017-06-21] MEDS: PICC Daily Heparin 100 unit/mL Lock Flush IV FLUSH SCH ×2 (08:28→20:13)
[2017-06-21] MEDS: ACYCLOVIR 5% OINT 15 APPLIC/15 GM TUBE TOPICAL SCH ×2 (08:30→21:00)
[2017-06-21] MEDS: DOCUSATE SODIUM 50 MG/SENNA 8.6 MG TAB PO SCH ×2 (08:30→21:00)
[2017-06-21] MEDS: NYSTAT/DIPHENHY/LIDO MOUTHWASH (Adult) 120ML SWISH-SWAL SCH ×4 (08:30→21:47)
[2017-06-21 12:01] LABS: BICARBONATE 28.3 MEQ/L (21.0-32.0); MAGNESIUM 1.7 MG/DL (1.5-2.5); POTASSIUM 3.3 MEQ/L (3.5-5.1)
[2017-06-21 12:03] LABS: VANCOMYCIN TROUGH 30.1 MCG/ML (5.0-10.0)
[2017-06-21] MEDS ORDERED: SODIUM CHLOR 0.9% 250 ML INJ 250 ML IV ONE (12:30)
--- NOTE | 2017-06-21 12:39 | PD.ONC.PN ---
Subjective Subjective Remarks Tmax 100.8 overnight. Tired of being in the hospital. Wants to go home. Resting in bed otherwise with no complaints. Objective Data Date Time Temp Pulse Resp B/P Pulse Ox O2 Delivery O2 Flow Rate FiO2 06/21/17 12:00 98.4 69 20 115/65 94 06/21/17 08:00 100.3 74 16 118/56 94 06/21/17 04:35 100.8 76 16 142/64 95 06/21/17 00:00 98.7 70 16 137/64 95 06/20/17 20:00 98.0 68 16 152/69 96 06/20/17 16:00 98.2 66 18 153/67 67 06/21/17 06/21/17 06/21/17 07:00 15:00 23:00 Intake Total 970 ml Balance 970 ml Result Diagram: 06/21/17 0440 06/21/17 0850 Laboratory Results Laboratory Tests Test 06/20/17 06/21/17 06/21/17 21:00 04:40 08:50 Magnesium Level 1.8 MG/DL 1.7 MG/DL White Blood Count 1.2 TH/MM3 Red Blood Count 2.69 MIL/MM3 Hemoglobin 8.1 GM/DL Hematocrit 22.4 % Mean Corpuscular Volume 83.4 FL Mean Corpuscular Hemoglobin 30.0 PG Mean Corpuscular Hemoglobin 36.0 % Concent Red Cell Distribution Width 14.1 % Platelet Count 24 TH/MM3 Mean Platelet Volume 7.4 FL Neutrophils (%) (Auto) 2.2 % Lymphocytes (%) (Auto) 93.5 % Monocytes (%) (Auto) 4.1 % Eosinophils (%) (Auto) 0.1 % Basophils (%) (Auto) 0.1 % Neutrophils # (Auto) 0.0 TH/MM3 Lymphocytes # (Auto) 1.1 TH/MM3 Monocytes # (Auto) 0.0 TH/MM3 Eosinophils # (Auto) 0.0 TH/MM3 Basophils # (Auto) 0.0 TH/MM3 CBC Comment AUTO DIFF Differential Total Cells 100 Counted Neutrophils % (Manual) 1 % Lymphocytes % 99 % Neutrophils # (Manual) 0.0 TH/MM3 Differential Comment FINAL DIFF MANUAL Platelet Estimate LOW Platelet Morphology Comment NORMAL Ovalocytes 1+ Stomatocytes 1+ Creatinine 0.58 MG/DL 0.57 MG/DL Estimat Glomerular Filtration 100 ML/MIN 102 ML/MIN Rate Sodium Level 138 MEQ/L Potassium Level 3.3 MEQ/L Chloride Level 103 MEQ/L Carbon Dioxide Level 28.3 MEQ/L Anion Gap 7 MEQ/L Blood Urea Nitrogen 14 MG/DL Random Glucose 79 MG/DL Calcium Level 8.0 MG/DL Vancomycin Level Trough 30.1 MCG/ML Culture Results Microbiology Date/Time Procedure Status Source Growth 06/21/17 04:40 Aerobic Blood Culture Received Blood Line Pending 06/21/17 04:40 Anaerobic Blood Culture Received Blood Line Pending Administered Medications Medications (Trade) Dose Ordered Sig/José Route PRN Reason Start Time Stop Time Status Last Admin Dose Admin Sodium Chloride (NS Flush) 2 ml UNSCH PRN IV FLUSH FLUSH AFTER USING IV ACCESS 05/18/17 10:15 05/30/17 10:15 Sodium Chloride (NS Flush) 2 ml BID IV FLUSH 05/18/17 21:00 06/21/17 08:28 Ondansetron HCl (Zofran Inj) 4 mg Q6H PRN IVP NAUSEA OR VOMITING 05/18/17 10:15 06/08/17 04:56 Senna/Docusate Sodium (Rosalinda-Colace) 1 tab BID PO 05/18/17 21:00 06/15/17 20:22 Levothyroxine Sodium (Synthroid) 50 mcg DAILY@0600 PO 05/19/17 06:00 06/21/17 05:50 Pravastatin Sodium (Pravachol) 10 mg DAILY PO 05/19/17 09:00 06/21/17 08:27 Diphenhydramine HCl (Benadryl) 25 mg Q4H PRN PO FOR BLOOD PRODUCTS 05/19/17 01:30 06/20/17 08:58 Acetaminophen (Tylenol) 650 mg Q4H PRN PO BLOOD PRODUCTS 05/19/17 01:30 06/20/17 08:58 Furosemide (Lasix) 20 mg BID@,18 PO 05/23/17 18:00 Hold 06/08/17 09:49 Potassium Chloride (KCl) 20 meq BID PO 05/28/17 21:00 Hold 06/08/17 09:49 Mupirocin 1 applic 1 applic BID EACH NARE 05/30/17 15:00 Hold 06/05/17 21:44 Filgrastim/ Dextrose (Neupogen Inj/ D5W Inj) 26.6 ml @ 106.4 mls/ hr DAILY@14 IV 05/31/17 14:00 06/20/17 13:54 Acyclovir (Zovirax 5% Oint (15 Gm)) 1 applic BID TOPICAL 06/01/17 15:00 06/13/17 09:45 Multi-Ingredient Mouthwash/Gargle 5 ml 5 ml QID SWISH-SWAL 06/03/17 13:00 06/20/17 20:49 Aztreonam/Sodium Chloride (Azactam Inj/NS Inj) 100 ml @ 200 mls/hr Q8H IV 06/04/17 12:00 06/21/17 12:31 Valacyclovir HCl (Valtrex) 1,000 mg Q8HR PO 06/04/17 14:15 06/21/17 12:33 Heparin Sodium (Porcine) (Heparin Central Flush) 200 units DAILY IV FLUSH 06/06/17 09:00 06/21/17 08:28 Sodium Chloride (NS Flush) 5 ml UNSCH PRN IV FLUSH SEE PROTOCOL TABLE 06/06/17 07:00 06/07/17 22:56 Heparin Sodium (Porcine) (Heparin Central Flush) 200 units UNSCH PRN IV FLUSH SEE PROTOCOL TABLE 06/06/17 07:00 06/20/17 21:34 Sodium Chloride (NS Flush) 5 ml UNSCH PRN IV FLUSH NEEDED 06/06/17 07:00 06/21/17 04:48 Sodium Chloride (NS Flush) 5 ml UNSCH PRN IV FLUSH SEE PROTOCOL TABLE 06/06/17 07:00 06/21/17 04:48 Amiodarone HCl (Cordarone) 200 mg BID PO 06/11/17 21:00 06/21/17 08:27 Eltrombopag (Promacta) 150 mg DAILY@06 PO 06/13/17 06:00 06/21/17 05:50 Acetaminophen (Tylenol) 650 mg QID PRN PO FEVER > 100.3 06/15/17 22:00 06/21/17 08:27 Methylprednisolone (Medrol) 10 mg DAILY PO 06/17/17 09:00 06/21/17 08:27 Pantoprazole Sodium 40 mg 40 mg DAILY PO 06/17/17 09:00 06/21/17 08:26 Vancomycin HCl/ Sodium Chloride (Vancomycin Inj/ NS 250 ml Inj) 250 ml @ 250 mls/hr Q12H IV 06/20/17 17:00 06/21/17 05:48 Morphine Sulfate (Morphine Inj) 2 mg ONCE ONCE IV PUSH 06/21/17 12:45 06/21/17 12:46 06/21/17 12:32 Objective Remarks GENERAL: Elderly female sitting up in bed in nad. 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 HEAD: Normocephalic. EYES: No injection or drainage. NECK: Supple, trachea midline. CARDIOVASCULAR: +S1/S2 RESPIRATORY: Breath sounds equal bilaterally. No accessory muscle use. GASTROINTESTINAL: Abdomen soft, non-tender, nondistended. EXTREMITIES: No cyanosis. NEUROLOGICAL: aox3. normal speech. moving all extremities. Assessment/Plan Problem List: (1) Pancytopenia Status: Acute Plan: -- +aplastic anemia -- bone marrow biopsy results show aplastic anemia -- s/p ATG and cyclosporine Assessment 82-year-old female with aplastic anemia s/p ATG and cyclosporine. Plan 1. no transfusion today 2. bone marrow biopsy today 3. monitor CBC, coags Attending Statement The exam, history, and the medical decision-making described in the above note were completed with the assistance of the mid-level provider. I reviewed and agree with the findings presented. I attest that I had a [id number] encounter with the patient on the same day, and personally performed and documented my assessment and findings in the medical record. Pt seen and examined, pancytopenia. Fever last night despite abx, looks clinically stable. Eager to go home, discuss concern about pancytopenia, need for abx that keeps her in hospital. BM bx to determine response or other reason for cytopenia. Discussed w/ pathology. Procedure Note Procedure Procedure: Bone marrow Aspiration and Biopsy Procedure Performed by: Diana Finley MD and Cecilia Hughes PA-C Risks and benefits of the procedure were discussed with the patient. Consent was obtained and signed by the patient. The patient was given Morphine 2mg IVas pre-medication. The patient was placed in the right lateral decubitus position. Sterile technique was followed. The site was prepped with Betadine and sterilely draped. Approximately 10 cc 1% lidocaine was used for local anesthesia. Bone marrow aspiration and biopsy were obtained from the left posterior iliac crest. The patient tolerated the procedure without complications and with minimal pain. Cecilia Hughes Jun 21, 2017 12:39 Luna Marie MD Jun 21, 2017 20:03
[2017-06-21] MEDS ORDERED: MORPHINE SULFATE 4 MG/ML INJ IV PUSH ONE (12:45)
[2017-06-21] MEDS ORDERED: MORPHINE SULFATE 4 MG/ML INJ IV PUSH STA (13:17)
[2017-06-21] MEDS: FILGRASTIM INJ 480 MCG in DEXTROSE 5% IN WATER INJ 25 ML IV SCH ×2 (13:52)
[2017-06-21 14:28] LABS: BONE MARROW PROCESSING COMPLETE; IRON STAIN DONE; JENNER GIEMSA STAIN DONE
[2017-06-21] MEDS ORDERED: POTASSIUM CHLORIDE 20 MEQ CONTROLLED RELEASE TAB PO ONE (15:00)
--- NOTE | 2017-06-21 16:39 | HHI.PR ---
Subjective Subjective Remarks Resting in bed Awake alert oriented Bone marrow test done today Vital signs normal trends no fever Review of Systems Constitutional Constitutional: Fatigue, Weakness (mild) Constitutional Remarks 10 point ROS done positives noted, Throat Throat Remarks Scabbed one third of lower lip sore, dry, slow improvement GI/Abdomen GI/Abdomen Remarks Encourage by mouth fluids Hematologic/Lymphatic Heme/Lymph: Ecchymosis Integumentary Skin Remarks rt. great toe Psychiatric Psychiatric: Normal Mood, Anxiety (mild) Vitals/Results Intake & Output 06/20/17 06/20/17 06/21/17 15:00 23:00 07:00 Intake Total 720 ml 970 ml Balance 720 ml 970 ml Intake Oral 720 ml 250 ml IV Total 720 ml # Voids 3 1 2 # Bowel Movements 1 Vital Signs Vital Signs Date Time Temp Pulse Resp B/P Pulse Ox O2 Delivery O2 Flow Rate FiO2 06/21/17 12:00 98.4 69 20 115/65 94 06/21/17 08:00 100.3 74 16 118/56 94 06/21/17 04:35 100.8 76 16 142/64 95 06/21/17 00:00 98.7 70 16 137/64 95 06/20/17 20:00 98.0 68 16 152/69 96 CBC/BMP: 06/21/17 0440 06/21/17 0850 Lab Results Laboratory Tests Test 06/20/17 06/21/17 06/21/17 21:00 04:40 08:50 Magnesium Level 1.8 MG/DL 1.7 MG/DL White Blood Count 1.2 TH/MM3 Red Blood Count 2.69 MIL/MM3 Hemoglobin 8.1 GM/DL Hematocrit 22.4 % Mean Corpuscular Volume 83.4 FL Mean Corpuscular Hemoglobin 30.0 PG Mean Corpuscular Hemoglobin 36.0 % Concent Red Cell Distribution Width 14.1 % Platelet Count 24 TH/MM3 Mean Platelet Volume 7.4 FL Neutrophils (%) (Auto) 2.2 % Lymphocytes (%) (Auto) 93.5 % Monocytes (%) (Auto) 4.1 % Eosinophils (%) (Auto) 0.1 % Basophils (%) (Auto) 0.1 % Neutrophils # (Auto) 0.0 TH/MM3 Lymphocytes # (Auto) 1.1 TH/MM3 Monocytes # (Auto) 0.0 TH/MM3 Eosinophils # (Auto) 0.0 TH/MM3 Basophils # (Auto) 0.0 TH/MM3 CBC Comment AUTO DIFF Differential Total Cells 100 Counted Neutrophils % (Manual) 1 % Lymphocytes % 99 % Neutrophils # (Manual) 0.0 TH/MM3 Differential Comment FINAL DIFF MANUAL Platelet Estimate LOW Platelet Morphology Comment NORMAL Ovalocytes 1+ Stomatocytes 1+ Creatinine 0.58 MG/DL 0.57 MG/DL Estimat Glomerular Filtration 100 ML/MIN 102 ML/MIN Rate Sodium Level 138 MEQ/L Potassium Level 3.3 MEQ/L Chloride Level 103 MEQ/L Carbon Dioxide Level 28.3 MEQ/L Anion Gap 7 MEQ/L Blood Urea Nitrogen 14 MG/DL Random Glucose 79 MG/DL Calcium Level 8.0 MG/DL Vancomycin Level Trough 30.1 MCG/ML Microbiology Microbiology 06/21/17 Aerobic Blood Culture, Received Pending 06/21/17 Anaerobic Blood Culture, Received Pending Physical Exam General General Appearance: Well Developed, No Acute Distress, Comfortable, Pale Eyes Eye Exam: Pupils Equal, Pupils Reactive Ears & Nose Ears & Nose Exam: Nasal Mucosa Duarte Throat Throat Exam: Oral Mucosa Duarte & Moist (pale) Neck Neck Exam: Trachea Midline Pulmonary Resp Exam: Clear Bilaterally, Breath Sounds Equal, No Distress Cardiology CV Exam: Regular, Good Perfusion, Murmur Gastrointestinal/Abdomen GI Exam: Soft, Non-Tender, Bowel Sounds Present, Positive Bowel Movement, Non- Distended Hematologic/Lymphatic Heme Exam: Ecchymosis Musculoskeletal MS Exam: Normal Tone, Atrophy (mild) Integumentary Skin Exam: Warm, Dry Extremeties Extremities Exam: No Edema, Pedal Pulses Palpable Neurologic Neuro Exam: Alert, Awake, Oriented, Speech Clear, 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, 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, 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 Psychiatric Psych Exam: Appropriate Responses PUD Prophylasis PUD Prophylaxis: Protonix Assessment/Plan Assessment/Plan Right hallux pain/ecchymosis/swelling, status post bedside procedure 11/20/2016 pancytopenia 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, secondary to herpes simplex type I, resolved Right external ear cellulitis, Leukopenia, Symptomatic anemia, Improved after transfusion Severe profound symptomatic thrombocytopenia, Uncontrolled aplastic anemia Acellular bone marrow per biopsy report Status post bone marrow biopsy 05/18/17, second one done on 06/21/17 Recent diagnosis of atrial fibrillation Recent diagnosis of gastric erosions Maculopapular rash, poss drug induced, Cefepime dc, resolved Management vitals reviewed , normal trends no fever noted today labs reviewed, hemoglobin stable at 8.1 leukopenia 1.2, potassium level 3.3, extra 40 mEq by mouth given today, recheck labs in the morning appreciate ID input Continue with Azactam Rash, resolved BP control, continue home meds Lisinopril for blood pressure control Lasix 20 mg twice a day oncology following Bone marrow biopsy done today in patient's room, patient tolerated procedure well Monitor CBC, coags D/W RN D/W , seen on his behalf Discussed with the patient, patient is wanting to go home, and makes everyone aware. Has discussed hospice care, but would not be able to receive for blood products if she goes on hospice. She is not quite there yet, but knows her options. Supportive care Fernanda Monroy Jun 21, 2017 16:39
[2017-06-21] MEDS ORDERED: PHARMACY ORDERED LAB ONE (16:45)
[2017-06-22] VITALS (7 sets, daily range): BP systolic 91–121; BP diastolic 50–83; PULSE 67–106; RESP 14–18; TEMP 98.4–100.2; O2SAT 93–96
[2017-06-22] MEDS: AZTREONAM INJ 1,000 MG in SODIUM CHLORIDE 0.9% INJ 100 ML IV SCH ×3 (04:52→21:41)
[2017-06-22] MEDS: PICC PRN Heparin 100 units/ml Lock Flush IV FLUSH (05:08)
[2017-06-22 05:27] LABS: HEMATOCRIT 22.5 % (35.0-46.0); MEAN CELL VOLUME 84.4 FL (80.0-100.0); MEAN CORPUSCULAR HEMOGLOBIN 29.6 PG (27.0-34.0); MEAN CORPUSCULAR HGB CONC 35.1 % (32.0-36.0); RED BLOOD COUNT 2.66 MIL/MM3 (4.00-5.30); RED CELL DISTRIBUTION WIDTH 14.2 % (11.6-17.2); WHITE BLOOD COUNT 1.4 TH/MM3 (4.0-11.0)
[2017-06-22 05:33] LABS: HEMO FLAGS AUTO DIFF
[2017-06-22 05:34] LABS: PLATELET COUNT 13 TH/MM3 (150-450)
[2017-06-22 05:58] LABS: BICARBONATE 28.9 MEQ/L (21.0-32.0); POTASSIUM 3.4 MEQ/L (3.5-5.1)
[2017-06-22] MEDS: LEVOTHYROXINE SODIUM 50 MCG TAB PO SCH (06:08)
[2017-06-22] MEDS: CLOTRIMAZOLE 10 MG TROCHE BUCCAL SCH ×5 (06:08→21:41)
[2017-06-22] MEDS: ELTROMBOPAG 50 MG TAB PO SCH (06:08)
[2017-06-22] MEDS: valACYclovir HCL 500 MG TAB PO SCH ×3 (06:08→21:41)
[2017-06-22] MEDS: VANCOMYCIN 1,000 MG/NS 250 ML IV SCH ×4 (06:09→20:29)
[2017-06-22 06:21] LABS: CALCIUM-PROTEIN CORRECTED 8.3 MG/DL (8.5-10.1)
[2017-06-22 07:38] LABS: POLYS (SEG NEUTROPHILS) 1 % (16-70); WBC DIFF SAMPLE 100
[2017-06-22 07:39] LABS: SCAN/DIFF FINAL DIFF MANUAL
[2017-06-22 07:40] LABS: PLATELET ESTIMATE SMEAR RARE (NORMAL); PLATELET MORPHOLOGY NORMAL (NORMAL)
[2017-06-22 07:41] LABS: STOMATOCYTES 1+ (NORMAL)
--- NOTE | 2017-06-22 11:14 | PD.WCN.NOT ---
Wound Consult Description: Bilateral blanchable buttock erythema with scab to L buttock that is moisture related. Communicated with: MARGARITA Mohan 7 elida and Sofia MIJARES Recommendation: Please cleanse buttock area gently with soap and water and pat dry. Apply Calazime barrier cream BID and PRN and leave buttock and perianal area open to air Additional Information: Patient seen on east for evaluation of possible pressure ulcer to medial lower back area. Patient complains of frequent loose stools and states," I just had some explosive diarrhea".Patient stood without assist and pulled clothing down to reveal buttock and lower back area. Biopsy site noted to L medial lower back area covered with small adhesive bandage, otherwise medial back is unremarkable. Bilateral buttock area noted with blanchable erythema and small scab to L buttock measuring ~0.4cm x ~0.7 cm. Blanchable erythema and scab appear to be moisture related. Patient states,"I have trouble cleaning myself after a BM and sometimes I don't get it all." loose stool is noted on pad in patient's undergarment, and also noted to perianal area. Removed pad and cleansed perianal and buttock area with soap and water and pat dry. Left buttock area open to air. No pressure injuries seen at this time. Patient able to pull up clothing independently and is sitting on side of bed with call light in reach upon leaving room. Fabiana Queen [facility] Jun 22, 2017 11:14
[2017-06-22] MEDS: PRAVASTATIN SOD 10 MG TAB PO SCH (11:18)
[2017-06-22] MEDS: DOCUSATE SODIUM 50 MG/SENNA 8.6 MG TAB PO SCH ×2 (11:18→20:29)
[2017-06-22] MEDS: PANTOPRAZOLE SOD 40 MG DELAYED RELEASE TAB PO SCH (11:18)
[2017-06-22] MEDS: AMIODARONE 200 MG TAB PO SCH ×2 (11:19→21:41)
[2017-06-22] MEDS: SODIUM CHLORIDE 0.9% FLUSH 10 ML FLUSH IV FLUSH SCH ×2 (11:19→20:29)
[2017-06-22] MEDS: ACYCLOVIR 5% OINT 15 APPLIC/15 GM TUBE TOPICAL SCH ×2 (11:24→20:29)
[2017-06-22] MEDS: NYSTAT/DIPHENHY/LIDO MOUTHWASH (Adult) 120ML SWISH-SWAL SCH ×4 (11:24→20:34)
[2017-06-22] MEDS ORDERED: POTASSIUM CHLORIDE 10 MEQ CONTROLLED RELEASE TAB PO ONE (13:15)
[2017-06-22] MEDS: methylPREDNISolone 4 MG TAB PO SCH (13:33)
--- NOTE | 2017-06-22 13:35 | PD.ONC.PN ---
Subjective Subjective Remarks Tmax 100.2 overnight. Patient resting in room in nad. Tired of being in hospital. No pain at bone marrow biopsy site. Objective Data Date Time Temp Pulse Resp B/P Pulse Ox O2 Delivery O2 Flow Rate FiO2 06/22/17 12:00 99.6 70 14 120/56 96 06/22/17 08:00 98.8 73 16 101/50 93 06/22/17 04:54 100.2 106 16 91/56 95 06/22/17 00:00 98.8 82 16 98/52 95 06/21/17 21:45 83 112/59 06/21/17 20:00 97.6 96 16 110/58 97 06/21/17 16:00 98.1 107 18 97/58 96 Result Diagram: 06/22/17 0500 06/22/17 0500 Laboratory Results Laboratory Tests Test 06/21/17 06/22/17 17:15 05:00 Vancomycin Level Trough 15.6 MCG/ML White Blood Count 1.4 TH/MM3 Red Blood Count 2.66 MIL/MM3 Hemoglobin 7.9 GM/DL Hematocrit 22.5 % Mean Corpuscular Volume 84.4 FL Mean Corpuscular Hemoglobin 29.6 PG Mean Corpuscular Hemoglobin 35.1 % Concent Red Cell Distribution Width 14.2 % Platelet Count 13 TH/MM3 Mean Platelet Volume 7.2 FL Neutrophils (%) (Auto) % Lymphocytes (%) (Auto) % Monocytes (%) (Auto) % Eosinophils (%) (Auto) % Basophils (%) (Auto) % Neutrophils # (Auto) TH/MM3 Lymphocytes # (Auto) TH/MM3 Monocytes # (Auto) TH/MM3 Eosinophils # (Auto) TH/MM3 Basophils # (Auto) TH/MM3 CBC Comment AUTO DIFF Differential Total Cells 100 Counted Neutrophils % (Manual) 1 % Lymphocytes % 99 % Neutrophils # (Manual) 0.0 TH/MM3 Differential Comment FINAL DIFF MANUAL Platelet Estimate RARE Platelet Morphology Comment NORMAL Stomatocytes 1+ Sodium Level 138 MEQ/L Potassium Level 3.4 MEQ/L Chloride Level 103 MEQ/L Carbon Dioxide Level 28.9 MEQ/L Anion Gap 6 MEQ/L Blood Urea Nitrogen 16 MG/DL Creatinine 0.61 MG/DL Estimat Glomerular Filtration 94 ML/MIN Rate Random Glucose 86 MG/DL Calcium Level 7.3 MG/DL Protein Corrected Calcium 8.3 MG/DL Total Protein 5.2 GM/DL Blood Type AB NEGATIVE Antibody Screen NEGATIVE Crossmatch Irradiated/Leukocyte-Reduced RBC Blood Bank Comment Culture Results Microbiology Date/Time Procedure Status Source Growth 06/21/17 04:40 Aerobic Blood Culture - Preliminary Resulted Blood Line NO GROWTH IN 1 DAY 06/21/17 04:40 Anaerobic Blood Culture - Preliminary Resulted Blood Line NO GROWTH IN 1 DAY Administered Medications Medications (Trade) Dose Ordered Sig/José Route PRN Reason Start Time Stop Time Status Last Admin Dose Admin Sodium Chloride (NS Flush) 2 ml UNSCH PRN IV FLUSH FLUSH AFTER USING IV ACCESS 05/18/17 10:15 05/30/17 10:15 Sodium Chloride (NS Flush) 2 ml BID IV FLUSH 05/18/17 21:00 06/22/17 11:19 Ondansetron HCl (Zofran Inj) 4 mg Q6H PRN IVP NAUSEA OR VOMITING 05/18/17 10:15 06/08/17 04:56 Senna/Docusate Sodium (Rosalinda-Colace) 1 tab BID PO 05/18/17 21:00 06/15/17 20:22 Levothyroxine Sodium (Synthroid) 50 mcg DAILY@0600 PO 05/19/17 06:00 06/22/17 06:08 Pravastatin Sodium (Pravachol) 10 mg DAILY PO 05/19/17 09:00 06/22/17 11:18 Diphenhydramine HCl (Benadryl) 25 mg Q4H PRN PO FOR BLOOD PRODUCTS 05/19/17 01:30 06/20/17 08:58 Acetaminophen (Tylenol) 650 mg Q4H PRN PO BLOOD PRODUCTS 05/19/17 01:30 06/20/17 08:58 Furosemide (Lasix) 20 mg BID@09,18 PO 05/23/17 18:00 Hold 06/08/17 09:49 Potassium Chloride (KCl) 20 meq BID PO 05/28/17 21:00 Hold 06/08/17 09:49 Mupirocin 1 applic 1 applic BID EACH NARE 05/30/17 15:00 Hold 06/05/17 21:44 Filgrastim/ Dextrose (Neupogen Inj/ D5W Inj) 26.6 ml @ 106.4 mls/ hr DAILY@14 IV 05/31/17 14:00 06/21/17 13:52 Acyclovir (Zovirax 5% Oint (15 Gm)) 1 applic BID TOPICAL 06/01/17 15:00 06/13/17 09:45 Multi-Ingredient Mouthwash/Gargle 5 ml 5 ml QID SWISH-SWAL 06/03/17 13:00 06/21/17 21:47 Aztreonam/Sodium Chloride (Azactam Inj/NS Inj) 100 ml @ 200 mls/hr Q8H IV 06/04/17 12:00 06/22/17 04:52 Valacyclovir HCl (Valtrex) 1,000 mg Q8HR PO 06/04/17 14:15 06/22/17 06:08 Heparin Sodium (Porcine) (Heparin Central Flush) 200 units DAILY IV FLUSH 06/06/17 09:00 06/21/17 20:13 Sodium Chloride (NS Flush) 5 ml UNSCH PRN IV FLUSH SEE PROTOCOL TABLE 06/06/17 07:00 06/07/17 22:56 Heparin Sodium (Porcine) (Heparin Central Flush) 200 units UNSCH PRN IV FLUSH SEE PROTOCOL TABLE 06/06/17 07:00 06/22/17 05:08 Sodium Chloride (NS Flush) 5 ml UNSCH PRN IV FLUSH NEEDED 06/06/17 07:00 06/21/17 04:48 Sodium Chloride (NS Flush) 5 ml UNSCH PRN IV FLUSH SEE PROTOCOL TABLE 06/06/17 07:00 06/21/17 04:48 Amiodarone HCl (Cordarone) 200 mg BID PO 06/11/17 21:00 06/22/17 11:19 Eltrombopag (Promacta) 150 mg DAILY@06 PO 06/13/17 06:00 06/22/17 06:08 Acetaminophen (Tylenol) 650 mg QID PRN PO FEVER > 100.3 06/15/17 22:00 06/21/17 08:27 Methylprednisolone (Medrol) 10 mg DAILY PO 06/17/17 09:00 06/21/17 08:27 Pantoprazole Sodium 40 mg 40 mg DAILY PO 06/17/17 09:00 06/22/17 11:18 Vancomycin HCl/ Sodium Chloride (Vancomycin Inj/ NS 250 ml Inj) 250 ml @ 250 mls/hr Q12H IV 06/20/17 17:00 06/22/17 06:09 Objective Remarks GENERAL: Elderly female supine in bed in nad SKIN: Warm and dry. band-aid left hip, no bleeding. HEAD: Normocephalic. EYES: No scleral icterus. No injection or drainage. NECK: Supple, trachea midline. CARDIOVASCULAR: Regular rate and rhythm RESPIRATORY: Breath sounds equal bilaterally. No accessory muscle use. GASTROINTESTINAL: Abdomen soft, non-tender, nondistended. EXTREMITIES: No cyanosis NEUROLOGICAL: No obvious focal deficit. Awake, alert, and oriented x3. Assessment/Plan Problem List: (1) Pancytopenia Status: Acute Plan: -- +aplastic anemia -- bone marrow biopsy results show aplastic anemia -- s/p ATG and cyclosporine Assessment 82-year-old female with aplastic anemia s/p ATG and cyclosporine. Plan 1. 1 unit pRBC and 1 unit platelets today 2. monitor CBC, coags 3. await repeat bone marrow biopsy 4. patient okay to leave unit and go sit outside for a bit when accompanied by staff member Attending Statement The exam, history, and the medical decision-making described in the above note were completed with the assistance of the mid-level provider. I reviewed and agree with the findings presented. I attest that I had a [id number] encounter with the patient on the same day, and personally performed and documented my assessment and findings in the medical record. Pt seen and examined. Still pancytopenic, s/p BM biopsy. Pt eager to go home, understanding her risk, her son at bedside. Discussed planning, we will involve ID and case management. She has snf care plan - need to explore what benefits available to help her be in her own home. Transfusions will need to be coordinated as out pt. Cecilia Hughes Jun 22, 2017 13:34 Luna Marie MD Jun 23, 2017 08:26
--- NOTE | 2017-06-22 13:53 | HHI.PR ---
Subjective Subjective Remarks fever last night 100.2 no diarrhea appetite fair, doesn't like food no cp no sob Review of Systems Constitutional Constitutional Remarks 12 point ros completed, negative except as noted above Vitals/Results Intake & Output 06/21/17 06/21/17 06/22/17 15:00 23:00 07:00 Intake Total 1000 ml 400 ml Balance 1000 ml 400 ml Intake Oral 250 ml 400 ml IV Total 750 ml # Voids 2 4 1 # Bowel Movements 1 1 0 Vital Signs Vital Signs Date Time Temp Pulse Resp B/P Pulse Ox O2 Delivery O2 Flow Rate FiO2 06/22/17 12:00 99.6 70 14 120/56 96 06/22/17 08:00 98.8 73 16 101/50 93 06/22/17 04:54 100.2 106 16 91/56 95 06/22/17 00:00 98.8 82 16 98/52 95 06/21/17 21:45 83 112/59 06/21/17 20:00 97.6 96 16 110/58 97 06/21/17 16:00 98.1 107 18 97/58 96 CBC/BMP: 06/22/17 0500 06/22/17 0500 Lab Results Laboratory Tests Test 06/21/17 06/22/17 17:15 05:00 Vancomycin Level Trough 15.6 MCG/ML White Blood Count 1.4 TH/MM3 Red Blood Count 2.66 MIL/MM3 Hemoglobin 7.9 GM/DL Hematocrit 22.5 % Mean Corpuscular Volume 84.4 FL Mean Corpuscular Hemoglobin 29.6 PG Mean Corpuscular Hemoglobin 35.1 % Concent Red Cell Distribution Width 14.2 % Platelet Count 13 TH/MM3 Mean Platelet Volume 7.2 FL Neutrophils (%) (Auto) % Lymphocytes (%) (Auto) % Monocytes (%) (Auto) % Eosinophils (%) (Auto) % Basophils (%) (Auto) % Neutrophils # (Auto) TH/MM3 Lymphocytes # (Auto) TH/MM3 Monocytes # (Auto) TH/MM3 Eosinophils # (Auto) TH/MM3 Basophils # (Auto) TH/MM3 CBC Comment AUTO DIFF Differential Total Cells 100 Counted Neutrophils % (Manual) 1 % Lymphocytes % 99 % Neutrophils # (Manual) 0.0 TH/MM3 Differential Comment FINAL DIFF MANUAL Platelet Estimate RARE Platelet Morphology Comment NORMAL Stomatocytes 1+ Sodium Level 138 MEQ/L Potassium Level 3.4 MEQ/L Chloride Level 103 MEQ/L Carbon Dioxide Level 28.9 MEQ/L Anion Gap 6 MEQ/L Blood Urea Nitrogen 16 MG/DL Creatinine 0.61 MG/DL Estimat Glomerular Filtration 94 ML/MIN Rate Random Glucose 86 MG/DL Calcium Level 7.3 MG/DL Protein Corrected Calcium 8.3 MG/DL Total Protein 5.2 GM/DL Blood Type AB NEGATIVE Antibody Screen NEGATIVE Crossmatch Irradiated/Leukocyte-Reduced RBC Blood Bank Comment Physical Exam General General Appearance: Well Developed, No Acute Distress, Comfortable, Pale Eyes Eye Exam: Pupils Equal, Pupils Reactive Ears & Nose Ears & Nose Exam: Nasal Mucosa [place] Throat Throat Exam: Oral Mucosa [place] & Moist Throat Remarks herpes lesion top lip now off Neck Neck Exam: Trachea Midline Pulmonary Resp Exam: Clear Bilaterally, Breath Sounds Equal, No Distress Cardiology CV Exam: Regular, Good Perfusion, Murmur Gastrointestinal/Abdomen GI Exam: Soft, Non-Tender, Bowel Sounds Present, Positive Bowel Movement, Non- Distended Hematologic/Lymphatic Heme Exam: Ecchymosis Musculoskeletal MS Exam: Normal Tone, Atrophy (mild) MS Remarks erythematous, discoloration both legs, mild edema Integumentary Skin Exam: Warm, Dry Skin Remarks rash markedly improved, not more brownish discoloration palmar rash improved discoloration both legs, erythematous/brownish Extremeties Extremities Exam: No Edema, Pedal Pulses Palpable Neurologic Neuro Exam: Alert, Awake, Oriented, Speech Clear, 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, Clothing Sorter Equal, 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 Psychiatric Psych Exam: Appropriate Responses PUD Prophylasis PUD Prophylaxis: Protonix Assessment/Plan Assessment/Plan Right hallux pain/ecchymosis/swelling, status post bedside procedure 11/20/2016 pancytopenia Right hallux pain/ecchymosis/swelling, status post bedside procedure 11/20/2016 pancytopenia 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, secondary to herpes simplex type I, improved Right external ear cellulitis, Leukopenia, No evidence of gout Symptomatic anemia, Improved after transfusion Severe profound symptomatic thrombocytopenia, given platelets again today Uncontrolled aplastic anemia Acellular bone marrow per biopsy report Status post bone marrow biopsy 05/18/17 Recent diagnosis of atrial fibrillation Recent diagnosis of gastric erosions Maculopapular rash, poss drug induced, Cefepime dc Management Podiatry input appreciated, signed off wound culture staph hominis appreciate ID input Topical Zovirax to upper lip Mupirocin cream for both nostrils Acyclovir dc, now on Valtrex On Vancomycin and Aztreonam. Cefepime dc'd due to rash Rash, Poss drug eruption resolving Steroids being weaned off BP control, continue home meds Lisinopril for blood pressure control Lasix 20 mg twice a day oncology following continue with blood product replacement plat 13. HH 06/02.3, will receive plat and PRBC today bone marrow biopsy results show aplastic anemia s/p ATG and cyclosporine and Promacta 06/12 no bone marrow recovery, had bone marrow bx on 06/21 results pending afib RVR, received dig Had Echo, EF okay continue Amiodarone 200 mg po bid Rate better controlled Was evaluated by cardiology during most previous admission stable monitor CBC continue with supportive care, pt. has had lengthy hospitalization.Anxious to go home. Not ready for dc yet D/W RN D/W D/W pt This patient was seen by myself and Dr. Espinoza, this note is written on her behalf. Sofia Morris Jun 22, 2017 13:53
[2017-06-22] MEDS ORDERED: NS + KCL 20 MEQ INJ 1,000 ML IV SCH (14:00)
[2017-06-22] MEDS: FILGRASTIM INJ 480 MCG in DEXTROSE 5% IN WATER INJ 25 ML IV SCH ×2 (14:41)
[2017-06-22] MEDS: diphenhydrAMINE HCL 25 MG CAP PO PRN (14:41)
[2017-06-22] MEDS: ACETAMINOPHEN 325 MG TAB PO PRN (14:42)
[2017-06-22] MEDS ORDERED: PHARMACY ORDERED LAB ONE (16:45)
[2017-06-23] VITALS (7 sets, daily range): BP systolic 98–152; BP diastolic 53–75; PULSE 67–117; RESP 16–20; TEMP 98.6–100.2; O2SAT 94–99
[2017-06-23] MEDS: AZTREONAM INJ 1,000 MG in SODIUM CHLORIDE 0.9% INJ 100 ML IV SCH ×3 (04:50→20:51)
--- NOTE | 2017-06-23 05:47 | RADRPT ---
EXAM DATE/TIME: 06/23/2017 05:38 [facility] COMPARISON: No previous studies available for comparison. INDICATIONS : Trauma, fall. RADIATION DOSE: 31.57 CTDIvol (mGy) MEDICAL HISTORY : Cardiovascular disease. SURGICAL HISTORY : None. ENCOUNTER: Initial ACUITY: 1 day PAIN SCALE: 5/10 LOCATION: cranial TECHNIQUE: Multiple contiguous axial images were obtained of the head. Using automated exposure control and adj ustment of the mA and/or kV according to patient size, radiation dose was kept as low as reasonably a chievable to obtain optimal diagnostic quality images. DICOM format image data is available electro nically for review and comparison. FINDINGS: CEREBRUM: The ventricles are normal for age. No evidence of midline shift, mass lesion, hemorrhage or acute in farction. No extra-axial fluid collections are seen. POSTERIOR FOSSA: The cerebellum and brainstem are intact. The 4th ventricle is midline. The cerebellopontine angle i s unremarkable. EXTRACRANIAL: The visualized portion of the orbits is intact. SKULL: The calvaria is intact. No evidence of skull fracture. CONCLUSION: No acute disease. Harsh Negro MD on June 23, 2017 at 5:45 Board Certified Radiologist. This report was verified electronically.
[2017-06-23] MEDS: CLOTRIMAZOLE 10 MG TROCHE BUCCAL SCH ×5 (05:59→20:52)
[2017-06-23] MEDS: valACYclovir HCL 500 MG TAB PO SCH ×3 (05:59→20:52)
[2017-06-23] MEDS: LEVOTHYROXINE SODIUM 50 MCG TAB PO SCH (05:59)
[2017-06-23] MEDS: ELTROMBOPAG 50 MG TAB PO SCH (05:59)
[2017-06-23 08:26] LABS: BASOPHIL % 0.2 % (0.0-2.0); EOSINOPHIL % 0.1 % (0.0-4.0); HEMATOCRIT 24.5 % (35.0-46.0); LYMPH % 91.3 % (9.0-44.0); LYMPHOCYTE # 0.9 TH/MM3 (1.0-4.8); MEAN CELL VOLUME 85.3 FL (80.0-100.0); MEAN CORPUSCULAR HEMOGLOBIN 29.5 PG (27.0-34.0); MEAN CORPUSCULAR HGB CONC 34.6 % (32.0-36.0); MONO % 5.3 % (0.0-8.0); NEUT % 3.1 % (16.0-70.0); PLATELET COUNT 23 TH/MM3 (150-450); RED BLOOD COUNT 2.87 MIL/MM3 (4.00-5.30); RED CELL DISTRIBUTION WIDTH 14.3 % (11.6-17.2)
[2017-06-23 08:35] LABS: HEMO FLAGS AUTO DIFF
[2017-06-23 08:58] LABS: BICARBONATE 25.1 MEQ/L (21.0-32.0); POTASSIUM 3.5 MEQ/L (3.5-5.1)
[2017-06-23] MEDS: cycloSPORINE 100 MG CAP PO SCH ×2 (09:00→17:54)
[2017-06-23] MEDS: SODIUM CHLORIDE 0.9% FLUSH 10 ML FLUSH IV FLUSH SCH ×2 (09:00→20:51)
[2017-06-23] MEDS: PICC Daily Heparin 100 unit/mL Lock Flush IV FLUSH SCH (09:00)
[2017-06-23] MEDS: NYSTAT/DIPHENHY/LIDO MOUTHWASH (Adult) 120ML SWISH-SWAL SCH ×4 (09:00→20:52)
[2017-06-23] MEDS: PANTOPRAZOLE SOD 40 MG DELAYED RELEASE TAB PO SCH (09:00)
[2017-06-23] MEDS: methylPREDNISolone 4 MG TAB PO SCH (09:00)
[2017-06-23] MEDS: ACYCLOVIR 5% OINT 15 APPLIC/15 GM TUBE TOPICAL SCH ×2 (09:00→20:52)
[2017-06-23] MEDS: DOCUSATE SODIUM 50 MG/SENNA 8.6 MG TAB PO SCH ×2 (09:00→20:52)
[2017-06-23] MEDS: cycloSPORINE 25 MG CAP PO SCH ×2 (09:00→17:54)
[2017-06-23 09:22] LABS: CALCIUM-PROTEIN CORRECTED 8.2 MG/DL (8.5-10.1)
[2017-06-23 09:34] LABS: BANDS 1 % (0-6); WBC DIFF SAMPLE 100
[2017-06-23 09:35] LABS: ACANTHOCYTES OCC (NORMAL)
[2017-06-23 09:36] LABS: PLATELET ESTIMATE SMEAR LOW (NORMAL); PLATELET MORPHOLOGY NORMAL (NORMAL); SCAN/DIFF FINAL DIFF MANUAL; SMUDGE CELLS PRESENT PRESENT
--- NOTE | 2017-06-23 10:33 | PD.ONC.PN ---
Subjective Subjective Remarks Afebrile overnight. son at bedside. Patient fell last night while getting up to go to the bathroom. She scraped her left elbow and hit her right cheek. Objective Data Date Time Temp Pulse Resp B/P Pulse Ox O2 Delivery O2 Flow Rate FiO2 06/23/17 08:00 98.7 72 19 146/57 94 06/23/17 05:01 98.7 76 16 137/67 96 06/23/17 03:55 99.2 83 16 152/72 95 06/23/17 00:00 99.1 67 16 108/57 99 06/22/17 20:00 98.4 67 16 121/60 95 06/22/17 17:39 98.6 75 18 115/83 96 06/22/17 16:00 98.7 73 18 106/53 96 06/22/17 12:00 99.6 70 14 120/56 96 06/23/17 06/23/17 06/23/17 07:00 15:00 23:00 Intake Total 350 ml Output Total 500 ml Balance -150 ml Result Diagram: 06/23/17 0600 06/23/17 0600 Laboratory Results Laboratory Tests Test 06/22/17 06/23/17 19:34 06:00 Vancomycin Level Trough 18.3 MCG/ML White Blood Count 1.0 TH/MM3 Red Blood Count 2.87 MIL/MM3 Hemoglobin 8.5 GM/DL Hematocrit 24.5 % Mean Corpuscular Volume 85.3 FL Mean Corpuscular Hemoglobin 29.5 PG Mean Corpuscular Hemoglobin 34.6 % Concent Red Cell Distribution Width 14.3 % Platelet Count 23 TH/MM3 Mean Platelet Volume 8.5 FL Neutrophils (%) (Auto) 3.1 % Lymphocytes (%) (Auto) 91.3 % Monocytes (%) (Auto) 5.3 % Eosinophils (%) (Auto) 0.1 % Basophils (%) (Auto) 0.2 % Neutrophils # (Auto) 0.0 TH/MM3 Lymphocytes # (Auto) 0.9 TH/MM3 Monocytes # (Auto) 0.1 TH/MM3 Eosinophils # (Auto) 0.0 TH/MM3 Basophils # (Auto) 0.0 TH/MM3 CBC Comment AUTO DIFF Differential Total Cells 100 Counted Band Neutrophils % 1 % Lymphocytes % 97 % Monocytes % 2 % Neutrophils # (Manual) 0.0 TH/MM3 Differential Comment FINAL DIFF MANUAL Smudge Cells PRESENT Platelet Estimate LOW Platelet Morphology Comment NORMAL Acanthocytes OCC Sodium Level 139 MEQ/L Potassium Level 3.5 MEQ/L Chloride Level 107 MEQ/L Carbon Dioxide Level 25.1 MEQ/L Anion Gap 7 MEQ/L Blood Urea Nitrogen 16 MG/DL Creatinine 0.57 MG/DL Estimat Glomerular Filtration 102 ML/MIN Rate Random Glucose 87 MG/DL Calcium Level 7.4 MG/DL Protein Corrected Calcium 8.2 MG/DL Total Protein 5.7 GM/DL Culture Results Microbiology Date/Time Procedure Status Source Growth 06/21/17 04:40 Aerobic Blood Culture - Preliminary Resulted Blood Line NO GROWTH IN 1 DAY 06/21/17 04:40 Anaerobic Blood Culture - Preliminary Resulted Blood Line NO GROWTH IN 1 DAY Imaging Studies Last [address] 06/23/17 0000 Signed Impressions: Service Date/Time: June 05:38 - CONCLUSION: No acute disease. Harsh Negro MD Administered Medications Medications (Trade) Dose Ordered Sig/José Route PRN Reason Start Time Stop Time Status Last Admin Dose Admin Sodium Chloride (NS Flush) 2 ml UNSCH PRN IV FLUSH FLUSH AFTER USING IV ACCESS 05/18/17 10:15 05/30/17 10:15 Sodium Chloride (NS Flush) 2 ml BID IV FLUSH 05/18/17 21:00 06/22/17 20:29 Ondansetron HCl (Zofran Inj) 4 mg Q6H PRN IVP NAUSEA OR VOMITING 05/18/17 10:15 06/08/17 04:56 Senna/Docusate Sodium (Rosalinda-Colace) 1 tab BID PO 05/18/17 21:00 06/15/17 20:22 Levothyroxine Sodium (Synthroid) 50 mcg DAILY@0600 PO 05/19/17 06:00 06/23/17 05:59 Pravastatin Sodium (Pravachol) 10 mg DAILY PO 05/19/17 09:00 06/22/17 11:18 Diphenhydramine HCl (Benadryl) 25 mg Q4H PRN PO FOR BLOOD PRODUCTS 05/19/17 01:30 06/22/17 14:41 Acetaminophen (Tylenol) 650 mg Q4H PRN PO BLOOD PRODUCTS 05/19/17 01:30 06/22/17 14:42 Furosemide (Lasix) 20 mg BID@09,18 PO 05/23/17 18:00 Hold 06/08/17 09:49 Potassium Chloride (KCl) 20 meq BID PO 05/28/17 21:00 Hold 06/08/17 09:49 Mupirocin 1 applic 1 applic BID EACH NARE 05/30/17 15:00 Hold 06/05/17 21:44 Filgrastim/ Dextrose (Neupogen Inj/ D5W Inj) 26.6 ml @ 106.4 mls/ hr DAILY@14 IV 05/31/17 14:00 06/22/17 14:41 Acyclovir (Zovirax 5% Oint (15 Gm)) 1 applic BID TOPICAL 06/01/17 15:00 06/13/17 09:45 Multi-Ingredient Mouthwash/Gargle 5 ml 5 ml QID SWISH-SWAL 06/03/17 13:00 06/21/17 21:47 Aztreonam/Sodium Chloride (Azactam Inj/NS Inj) 100 ml @ 200 mls/hr Q8H IV 06/04/17 12:00 06/23/17 04:50 Valacyclovir HCl (Valtrex) 1,000 mg Q8HR PO 06/04/17 14:15 06/23/17 05:59 Heparin Sodium (Porcine) (Heparin Central Flush) 200 units DAILY IV FLUSH 06/06/17 09:00 06/21/17 20:13 Sodium Chloride (NS Flush) 5 ml UNSCH PRN IV FLUSH SEE PROTOCOL TABLE 06/06/17 07:00 06/07/17 22:56 Heparin Sodium (Porcine) (Heparin Central Flush) 200 units UNSCH PRN IV FLUSH SEE PROTOCOL TABLE 06/06/17 07:00 06/22/17 05:08 Sodium Chloride (NS Flush) 5 ml UNSCH PRN IV FLUSH NEEDED 06/06/17 07:00 06/21/17 04:48 Sodium Chloride (NS Flush) 5 ml UNSCH PRN IV FLUSH SEE PROTOCOL TABLE 06/06/17 07:00 06/21/17 04:48 Amiodarone HCl (Cordarone) 200 mg BID PO 06/11/17 21:00 06/22/17 21:41 Eltrombopag (Promacta) 150 mg DAILY@06 PO 06/13/17 06:00 06/23/17 05:59 Acetaminophen (Tylenol) 650 mg QID PRN PO FEVER > 100.3 06/15/17 22:00 06/21/17 08:27 Methylprednisolone (Medrol) 10 mg DAILY PO 06/17/17 09:00 06/22/17 13:33 Pantoprazole Sodium (Protonix) 40 mg DAILY PO 06/17/17 09:00 06/22/17 11:18 Objective Remarks GENERAL: Elderly female upright in bed. son at bedside. 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 left forearm with skin tear. HEAD: Normocephalic. right face with bruise. EYES: No injection or drainage. NECK: Supple, trachea midline. CARDIOVASCULAR: Regular rate and rhythm RESPIRATORY: Breath sounds equal bilaterally. No accessory muscle use. GASTROINTESTINAL: Abdomen soft, non-tender, nondistended. EXTREMITIES: No cyanosis NEUROLOGICAL: awake and alert, normal speech. moving all extremities. Assessment/Plan Problem List: (1) Pancytopenia Status: Acute Plan: -- +aplastic anemia -- bone marrow biopsy results show aplastic anemia -- s/p ATG and cyclosporine Assessment 82-year-old female with aplastic anemia s/p ATG and cyclosporine. Plan 1. check CT facial bones. 2. resume Cyclosporine. check cyclosporine levels 3. monitor CBC 4. ask ID for home abx recommendations. Patient could be discharged once home abx are in place. Attending Statement The exam, history, and the medical decision-making described in the above note were completed with the assistance of the mid-level provider. I reviewed and agree with the findings presented. I attest that I had a [id number] encounter with the patient on the same day, and personally performed and documented my assessment and findings in the medical record. Pt eager to go home. Cyclosporine dose to be titrated to therapeutic level. Noted trauma skin tear L elbow. Noted some fever but now low grade. Monitor. Plan to coordinate home abx and transfusion. DC home on Cyclosporine and Promacta. Abx: prophylaxis Valcyclovir and Diflucan Plan to continue Vancomycin, Aztreonam. Cecilia Hughes Jun 23, 2017 10:33 Luna Marie MD Jun 23, 2017 19:12
[2017-06-23] MEDS: AMIODARONE 200 MG TAB PO SCH ×2 (11:39→20:51)
[2017-06-23] MEDS: PRAVASTATIN SOD 10 MG TAB PO SCH (11:40)
--- NOTE | 2017-06-23 12:22 | RADRPT ---
EXAM DATE/TIME: 06/23/2017 11:59 [facility] COMPARISON: No previous studies available for comparison. INDICATIONS : Fell hitting her left check RADIATION DOSE: 43.86 CTDIvol (mGy) MEDICAL HISTORY : Hypothyroidism. Aplastic anemia SURGICAL HISTORY : None. ENCOUNTER: Initial ACUITY: 1 day PAIN SCORE: 4/10 LOCATION: Left facial TECHNIQUE: Volumetric scanning of the facial bones was performed. Using automated exposure control and adjustme nt of the mA and/or kV according to patient size, radiation dose was kept as low as reasonably achiev able to obtain optimal diagnostic quality images. DICOM format image data is available electronicTune Clout y for review and comparison. FINDINGS: ORBITS: The orbital and infraorbital osseous structures are intact. The retroconal structures have a normal configuration. No radiopaque foreign bodies are seen. NASAL BONE: The nasal bone and maxillary spine are intact ZYGOMATIC ARCHES: Symmetric without evidence of fracture. SINUSES: The maxillary, ethmoid and frontal sinuses are intact. No air-fluid levels seen. NASAL CAVITY: The nasal septum is intact and midline. The lacrimal ducts are intact. SOFT TISSUES: No radiopaque foreign bodies seen. No soft-tissue swelling is seen. INTRACRANIAL: No intracranial air seen. CRIBIFORM PLATE: Grossly intact. CONCLUSION: Normal examination. Abraham Mendosa MD on June 23, 2017 at 12:10 Board Certified Radiologist. This report was verified electronically.
[2017-06-23] MEDS: FILGRASTIM INJ 480 MCG in DEXTROSE 5% IN WATER INJ 25 ML IV SCH ×2 (13:01)
--- NOTE | 2017-06-23 15:21 | HHI.PR ---
Subjective Subjective Remarks Resting in bed but responds readily to verbal stimuli Patient worked hard with PT today Appetite good Patient is hoping for discharge tomorrow, but will need to go home with IV antibiotics (Fernanda Monroy) Review of Systems Constitutional Constitutional Remarks 10 point ROS done positives noted, (Fernanda Monroy) Throat Throat Remarks Scabbed one third of lower lip sore, dry, slow improvement (Fernanda Monroy) GI/Abdomen GI/Abdomen Remarks Encourage by mouth fluids (Fernanda Monroy) Integumentary Skin Remarks rt. great toe (Fernanda Monroy) Vitals/Results Intake & Output 06/22/17 06/22/17 06/23/17 15:00 23:00 07:00 Intake Total 472 ml 350 ml 350 ml Output Total 500 ml Balance 472 ml 350 ml -150 ml Intake Oral 472 ml 350 ml 350 ml Output Urine Total 500 ml # Voids 1 1 # Bowel Movements 0 0 1 Vital Signs Vital Signs Date Time Temp Pulse Resp B/P Pulse Ox O2 Delivery O2 Flow Rate FiO2 06/23/17 12:31 100.2 84 20 142/70 94 06/23/17 08:00 98.7 72 19 146/57 94 06/23/17 05:01 98.7 76 16 137/67 96 06/23/17 03:55 99.2 83 16 152/72 95 06/23/17 00:00 99.1 67 16 108/57 99 06/22/17 20:00 98.4 67 16 121/60 95 06/22/17 17:39 98.6 75 18 115/83 96 06/22/17 16:00 98.7 73 18 106/53 96 (Fernanda Monroy) CBC/BMP: 06/23/17 0600 06/23/17 0600 Lab Results Laboratory Tests Test 06/22/17 06/23/17 19:34 06:00 Vancomycin Level Trough 18.3 MCG/ML White Blood Count 1.0 TH/MM3 Red Blood Count 2.87 MIL/MM3 Hemoglobin 8.5 GM/DL Hematocrit 24.5 % Mean Corpuscular Volume 85.3 FL Mean Corpuscular Hemoglobin 29.5 PG Mean Corpuscular Hemoglobin 34.6 % Concent Red Cell Distribution Width 14.3 % Platelet Count 23 TH/MM3 Mean Platelet Volume 8.5 FL Neutrophils (%) (Auto) 3.1 % Lymphocytes (%) (Auto) 91.3 % Monocytes (%) (Auto) 5.3 % Eosinophils (%) (Auto) 0.1 % Basophils (%) (Auto) 0.2 % Neutrophils # (Auto) 0.0 TH/MM3 Lymphocytes # (Auto) 0.9 TH/MM3 Monocytes # (Auto) 0.1 TH/MM3 Eosinophils # (Auto) 0.0 TH/MM3 Basophils # (Auto) 0.0 TH/MM3 CBC Comment AUTO DIFF Differential Total Cells 100 Counted Band Neutrophils % 1 % Lymphocytes % 97 % Monocytes % 2 % Neutrophils # (Manual) 0.0 TH/MM3 Differential Comment FINAL DIFF MANUAL Smudge Cells PRESENT Platelet Estimate LOW Platelet Morphology Comment NORMAL Acanthocytes OCC Sodium Level 139 MEQ/L Potassium Level 3.5 MEQ/L Chloride Level 107 MEQ/L Carbon Dioxide Level 25.1 MEQ/L Anion Gap 7 MEQ/L Blood Urea Nitrogen 16 MG/DL Creatinine 0.57 MG/DL Estimat Glomerular Filtration 102 ML/MIN Rate Random Glucose 87 MG/DL Calcium Level 7.4 MG/DL Protein Corrected Calcium 8.2 MG/DL Total Protein 5.7 GM/DL (Eliana,Susan M. [employer] P[employer]) Physical Exam General General Appearance: Well Developed, No Acute Distress, Comfortable, Pale ( Fernanda Monroy. SWE[employer]) Eyes Eye Exam: Pupils Equal, Pupils Reactive (Fernanda Monroy. SWE[employer]) Ears & Nose Ears & Nose Exam: Nasal Mucosa [place] (StinnettFernanda M. SWE[employer] P[employer]LED [employer]KER) Throat Throat Exam: Oral Mucosa [place] & Moist (StinnettFernanda M. [employer]WE[employer] P[employer]KER) Neck Neck Exam: Trachea Midline (ElianaFernanda M. [employer]WE[employer] P[employer]) Pulmonary Resp Exam: Clear Bilaterally, Breath Sounds Equal, No Distress (ElianaFernanda M. SWE[employer] P[employer]) Cardiology CV Exam: Regular, Good Perfusion, Murmur (Eliana,Susan M. [employer]) Gastrointestinal/Abdomen GI Exam: Soft, Non-Tender, Bowel Sounds Present, Positive Bowel Movement, Non- Distended (Stinnett,Susan M. 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, 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 (Fernanda Monroy) Psychiatric Psych Exam: Appropriate Responses (Fernanda Monroy) PUD Prophylasis PUD Prophylaxis: Protonix (Fernanda Monroy) Assessment/Plan Assessment/Plan Right hallux pain/ecchymosis/swelling, status post bedside procedure 11/20/2016 pancytopenia, still continues to wax and wane Right hallux pain/ecchymosis/swelling, status post bedside procedure 11/20/2016 pancytopenia 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, secondary to herpes simplex type I, improved Right external ear cellulitis, Leukopenia, No evidence of gout Symptomatic anemia, Improved after transfusion Severe profound symptomatic thrombocytopenia, given platelets again today Uncontrolled aplastic anemia Acellular bone marrow per biopsy report Status post bone marrow biopsy 05/18/17 Recent diagnosis of atrial fibrillation Recent diagnosis of gastric erosions Maculopapular rash, poss drug induced, Cefepime dc Management Podiatry input appreciated, signed off wound culture staph hominis appreciate ID input Maintained on Valtrex Rash, Poss drug eruption Resolved BP control, continue home meds Lisinopril for blood pressure control Lasix 20 mg twice a day oncology following Plan for patient to possibly go home with home antibiotics, patient is hoping for tomorrow We will put in orders for home health care D/W RN D/W , seen on his behalf D/W pt (Fernanda Monroy) Assessment/Plan seen, examined by myself, Dr Espinoza, today Discussed with patient Discussed with nurse Plans according to oncology service for home discharge Home IV antibiotics Possible transfusion as outpatient Frequent follow-up with oncology as outpatient The patient has requested the above and is aware of the risks involved High risk of need of readmission very soon Discussed with mid level provider The exam, history, and the medical decision-making described in the above note were completed with the assistance of the mid-level provider. I reviewed the findings presented. I attest that I had a [id number] encounter with the patient on the same day, and personally performed and documented my assessment and findings in the medical record.seen, examined by myself, Dr Espinoza, today Discussed with patient Discussed with mid level provider The exam, history, and the medical decision-making described in the above note were completed with the assistance of the mid-level provider. I reviewed the findings presented. I attest that I had a [id number] encounter with the patient on the same day, and personally performed and documented my assessment and findings in the medical record. (Elan Espinoza MD) Fernanda Monroy Jun 23, 2017 15:21 Elan Espinoza MD Jun 23, 2017 19:46
--- NOTE | 2017-06-23 15:23 | HHI.FF ---
Face to Face Verification Diagnosis: (1) Neutropenic fever (2) Lip lesion (3) Pancytopenia (4) Symptomatic anemia (5) Shortness of breath (6) Paroxysmal atrial fibrillation (7) Lung nodule, multiple (8) Thrombocytopenia Physical Therapy Order: Strength and gait training Occupational Therapy Order: Gross motor coordination, Fine motor coordination Home Health Nursing Order: Nursing assessment with vital signs Instructions: Will need home IV antibiotics once ID has decided on course of treatment I have seen patient Mariza Vargas on 06/23/17. My clinical findings support the need for the requested home health care services because: Ltd mobility - disease progression Deconditioned w/ increased weakness High risk of falls I certify that my clinical findings support that this patient is homebound because: Poor cardiac reserve Fernanda Monroy Jun 23, 2017 15:23
[2017-06-23] MEDS ORDERED: VANCOMYCIN INJ 1,250 MG in SODIUM CHLOR 0.9% 250 ML INJ 250 ML IV SCH (20:00)
[2017-06-23] MEDS ORDERED: VANCOMYCIN INJ 1,400 MG in SODIUM CHLORID 0.9% 500 ML INJ 500 ML IV SCH (20:00)
[2017-06-24] VITALS (10 sets, daily range): BP systolic 112–171; BP diastolic 52–87; PULSE 63–70; RESP 14–18; TEMP 96.7–98.7; O2SAT 93–98
[2017-06-24] MEDS: AZTREONAM INJ 1,000 MG in SODIUM CHLORIDE 0.9% INJ 100 ML IV SCH (04:10)
[2017-06-24] MEDS: valACYclovir HCL 500 MG TAB PO SCH (05:17)
[2017-06-24] MEDS: CLOTRIMAZOLE 10 MG TROCHE BUCCAL SCH ×4 (05:17→17:36)
[2017-06-24] MEDS: LEVOTHYROXINE SODIUM 50 MCG TAB PO SCH (05:17)
[2017-06-24] MEDS: cycloSPORINE 25 MG CAP PO SCH ×2 (05:18→17:36)
[2017-06-24] MEDS: ELTROMBOPAG 50 MG TAB PO SCH (05:18)
[2017-06-24] MEDS: cycloSPORINE 100 MG CAP PO SCH ×2 (05:18→17:36)
[2017-06-24 06:13] LABS: HEMATOCRIT 21.7 % (35.0-46.0); MEAN CORPUSCULAR HEMOGLOBIN 29.7 PG (27.0-34.0); RED BLOOD COUNT 2.55 MIL/MM3 (4.00-5.30); RED CELL DISTRIBUTION WIDTH 13.9 % (11.6-17.2); WHITE BLOOD COUNT 1.3 TH/MM3 (4.0-11.0)
[2017-06-24 06:14] LABS: HEMO FLAGS AUTO DIFF
[2017-06-24 06:15] LABS: PLATELET COUNT 12 TH/MM3 (150-450)
[2017-06-24 06:30] LABS: BICARBONATE 26.5 MEQ/L (21.0-32.0); POTASSIUM 3.1 MEQ/L (3.5-5.1); TOTAL BILIRUBIN ADULT 1.8 MG/DL (0.2-1.0)
[2017-06-24 07:25] LABS: WBC DIFF SAMPLE 25
[2017-06-24 07:26] LABS: OVALOCYTES 1+ (NORMAL); PLATELET ESTIMATE SMEAR LOW (NORMAL); PLATELET MORPHOLOGY NORMAL (NORMAL); SCAN/DIFF FINAL DIFF MANUAL; SMUDGE CELLS PRESENT PRESENT
[2017-06-24] MEDS ORDERED: POTASSIUM CHLORIDE 10 MEQ CONTROLLED RELEASE TAB PO ONE (08:00)
[2017-06-24] MEDS: DOCUSATE SODIUM 50 MG/SENNA 8.6 MG TAB PO SCH (09:00)
[2017-06-24] MEDS: ACYCLOVIR 5% OINT 15 APPLIC/15 GM TUBE TOPICAL SCH (09:00)
[2017-06-24] MEDS ORDERED: methylPREDNISolone 4 MG TAB PO SCH (09:00)
[2017-06-24] MEDS: NYSTAT/DIPHENHY/LIDO MOUTHWASH (Adult) 120ML SWISH-SWAL SCH ×3 (09:00→17:45)
[2017-06-24] MEDS: PANTOPRAZOLE SOD 40 MG DELAYED RELEASE TAB PO SCH (09:08)
[2017-06-24] MEDS: AMIODARONE 200 MG TAB PO SCH (09:08)
[2017-06-24] MEDS: PRAVASTATIN SOD 10 MG TAB PO SCH (09:08)
[2017-06-24] MEDS: diphenhydrAMINE HCL 25 MG CAP PO PRN (09:09)
[2017-06-24] MEDS: PICC Daily Heparin 100 unit/mL Lock Flush IV FLUSH SCH (09:09)
[2017-06-24] MEDS: SODIUM CHLORIDE 0.9% FLUSH 10 ML FLUSH IV FLUSH SCH (09:11)
[2017-06-24] MEDS ORDERED: SAND25 PO (10:53)
[2017-06-24] MEDS ORDERED: [UNRECOGNIZED DRUG - CODE] PO (10:53)
--- NOTE | 2017-06-24 10:57 | HHI.IDPN ---
Subjective Subjective Remarks doing well no fever x 24 hrslow grade yday up to 100.2 pt's lip and ear are healed toe is improving but still some swelling rash resolved ANC 0 no new co Antibiotics vanco azactam valtrex Past Medical History Reviewed Allergies: Coded Allergies: No Known Allergies (Unverified , 06/24/17) Objective . Vital Signs Date Time Temp Pulse Resp B/P Pulse Ox O2 Delivery O2 Flow Rate FiO2 06/24/17 08:00 97.6 66 18 125/63 94 06/24/17 04:00 98.7 63 16 112/52 98 06/24/17 00:00 97.6 67 16 152/71 95 06/23/17 20:00 98.6 99 16 98/53 94 06/23/17 16:00 99.8 117 20 119/75 95 06/23/17 12:31 100.2 84 20 142/70 94 06/23/17 06/23/17 06/24/17 15:00 23:00 07:00 Intake Total 480 ml 360 ml 300 ml Output Total 350 ml 350 ml Balance 480 ml 10 ml -50 ml Intake Oral 480 ml 360 ml 300 ml Output Urine Total 350 ml 350 ml # Voids 2 # Bowel Movements 2 1 1 . Laboratory Tests Test 06/23/17 06/24/17 06:00 05:15 White Blood Count 1.0 TH/MM3 1.3 TH/MM3 Red Blood Count 2.87 MIL/MM3 2.55 MIL/MM3 Hemoglobin 8.5 GM/DL 7.6 GM/DL Hematocrit 24.5 % 21.7 % Mean Corpuscular Volume 85.3 FL 85.0 FL Mean Corpuscular Hemoglobin 29.5 PG 29.7 PG Mean Corpuscular Hemoglobin 34.6 % 35.0 % Concent Red Cell Distribution Width 14.3 % 13.9 % Platelet Count 23 TH/MM3 12 TH/MM3 Mean Platelet Volume 8.5 FL 8.1 FL Neutrophils (%) (Auto) 3.1 % % Lymphocytes (%) (Auto) 91.3 % % Monocytes (%) (Auto) 5.3 % % Eosinophils (%) (Auto) 0.1 % % Basophils (%) (Auto) 0.2 % % Neutrophils # (Auto) 0.0 TH/MM3 TH/MM3 Lymphocytes # (Auto) 0.9 TH/MM3 TH/MM3 Monocytes # (Auto) 0.1 TH/MM3 TH/MM3 Eosinophils # (Auto) 0.0 TH/MM3 TH/MM3 Basophils # (Auto) 0.0 TH/MM3 TH/MM3 CBC Comment AUTO DIFF AUTO DIFF Differential Total Cells 100 25 Counted Band Neutrophils % 1 % Lymphocytes % 97 % 96 % Monocytes % 2 % 4 % Neutrophils # (Manual) 0.0 TH/MM3 Differential Comment FINAL DIFF FINAL DIFF MANUAL MANUAL Smudge Cells PRESENT PRESENT Platelet Estimate LOW LOW Platelet Morphology Comment NORMAL NORMAL Acanthocytes OCC Ovalocytes 1+ Laboratory Tests Test 06/23/17 06/24/17 06:00 05:15 Sodium Level 139 MEQ/L 138 MEQ/L Potassium Level 3.5 MEQ/L 3.1 MEQ/L Chloride Level 107 MEQ/L 106 MEQ/L Carbon Dioxide Level 25.1 MEQ/L 26.5 MEQ/L Anion Gap 7 MEQ/L 6 MEQ/L Blood Urea Nitrogen 16 MG/DL 17 MG/DL Creatinine 0.57 MG/DL 0.58 MG/DL Estimat Glomerular Filtration 102 ML/MIN 100 ML/MIN Rate Random Glucose 87 MG/DL 83 MG/DL Calcium Level 7.4 MG/DL 7.0 MG/DL Protein Corrected Calcium 8.2 MG/DL 8.0 MG/DL Total Protein 5.7 GM/DL 5.2 GM/DL Total Bilirubin 1.8 MG/DL Aspartate Amino Transf 18 U/L (AST/SGOT) Alanine Aminotransferase 95 U/L (ALT/SGPT) Alkaline Phosphatase 250 U/L Lactate Dehydrogenase 125 U/L Albumin 1.8 GM/DL Imaging Chest X-Ray 05/31/17 0600 Signed Impressions: Service Date/Time: Wednesday, May 31, 2017 05:54 - CONCLUSION: 1. Chronic interstitial lung disease. 2. No new focal pulmonary infiltrates are demonstrated. Maurice Jean Baptiste MD Bone Biopsy CT 05/18/17 1456 Signed Impressions: Service Date/Time: Thursday, May 18, 2017 15:21 - CONCLUSION: 1. Uncomplicated CT guided bone marrow aspirate. 2. Uncomplicated CT guided bone marrow biopsy. Robert Cruz MD FACR PICC Line Insertion 05/18/17 0000 Signed Impressions: Service Date/Time: Thursday, May 18, 2017 13:31 - CONCLUSION: 1. Uncomplicated central venous Power PICC line placement. 2. The PICC line can be used immediately. Meliton Lerma MD Physical Exam CONSTITUTIONAL/GENERAL: Awake and alert, NAD SKIN: Rash is resovelving, now just pyperpigmented maculas EYES: Pupils equal and round and reactive. . No scleral icterus. No injection or drainage. ENT: Nose without bleeding or purulent drainage. Oral mucosae without visible erythema, exudates, masses, or lesions. Lesion lip completely resolved CARDIOVASCULAR: Regular rate and rhythm without murmurs, gallops, or rubs. No JVD. RESPIRATORY/CHEST: Clear to auscultation. Breath sounds equal bilaterally. No wheezes, rales, or rhonchi. GASTROINTESTINAL: Abdomen soft, non-tender, nondistended. No hepato-splenomegaly , or palpable masses. Bowel sounds present. MUSCULOSKELETAL: Extremities without clubbing, cyanosis, R foot edema. R hallux with dry clean wound, crusted, mild edema noted no erythema, no ascending celluitis or lymphangitis NEUROLOGICAL: Awake and alert. Motor and sensory grossly within normal limits. Follows commands. Clear speech. Moves all extremities. 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+ Fever, low grade, intermittent R hallux paronychia with ascending mild cellulitis - ccellulitis resolved, hallux is markedly improved Skin rash mostly cw allergic reaction to cefepime, nearly resolved REC's: completed azactam, vanco x 3 weeks we can use levaquine 500 daily if amiodarone is switched to another antiarithmic med (risk of QT prolongation 2/2 levaquine/amio ineraction) cont valtrex reduce dose to 500 BID OK to dc pt if remains afebrile today, however if develops fever again will need to readmit her dw Dr Osborn: pt can not be switched to other antiarythmial medx and has to stayu on amiodarone Also fluconazole will be added to her Rx for antifungal profilaxis Levaquion/ ciporo not an option migel Ayala, it is believed that pt rash was due to serum sickness seation to one of her hem/onc medx, but not to cefepime - cefepime is removed from allergy list dc on AUgmentin 875 bid D/W Milagro Ayala and Dr Anurag lainez pharmacist dw son @ b/s Roseann Ham MD Jun 24, 2017 10:57
--- NOTE | 2017-06-24 11:57 | PD.ONC.PN ---
Subjective Subjective Remarks Afebrile overnight. Patient eager to go home. No issues overnight. Objective Data Date Time Temp Pulse Resp B/P Pulse Ox O2 Delivery O2 Flow Rate FiO2 06/24/17 10:53 96.7 63 16 161/74 93 06/24/17 08:00 97.6 66 18 125/63 94 06/24/17 04:00 98.7 63 16 112/52 98 06/24/17 00:00 97.6 67 16 152/71 95 06/23/17 20:00 98.6 99 16 98/53 94 06/23/17 16:00 99.8 117 20 119/75 95 06/23/17 12:31 100.2 84 20 142/70 94 06/24/17 06/24/17 06/24/17 07:00 15:00 23:00 Intake Total 300 ml Output Total 350 ml Balance -50 ml Result Diagram: 06/24/17 0515 06/24/17 0515 Laboratory Results Laboratory Tests Test 06/24/17 06/24/17 06/24/17 05:00 05:15 08:38 Blood Type AB NEGATIVE Crossmatch Irradiated/Leukocyte-Reduced Irradiated/Leukocyte-Reduced RBC RBC Blood Bank Comment White Blood Count 1.3 TH/MM3 Red Blood Count 2.55 MIL/MM3 Hemoglobin 7.6 GM/DL Hematocrit 21.7 % Mean Corpuscular Volume 85.0 FL Mean Corpuscular Hemoglobin 29.7 PG Mean Corpuscular Hemoglobin 35.0 % Concent Red Cell Distribution Width 13.9 % Platelet Count 12 TH/MM3 Mean Platelet Volume 8.1 FL Neutrophils (%) (Auto) % Lymphocytes (%) (Auto) % Monocytes (%) (Auto) % Eosinophils (%) (Auto) % Basophils (%) (Auto) % Neutrophils # (Auto) TH/MM3 Lymphocytes # (Auto) TH/MM3 Monocytes # (Auto) TH/MM3 Eosinophils # (Auto) TH/MM3 Basophils # (Auto) TH/MM3 CBC Comment AUTO DIFF Differential Total Cells 25 Counted Lymphocytes % 96 % Monocytes % 4 % Differential Comment FINAL DIFF MANUAL Smudge Cells PRESENT Platelet Estimate LOW Platelet Morphology Comment NORMAL Ovalocytes 1+ Sodium Level 138 MEQ/L Potassium Level 3.1 MEQ/L Chloride Level 106 MEQ/L Carbon Dioxide Level 26.5 MEQ/L Anion Gap 6 MEQ/L Blood Urea Nitrogen 17 MG/DL Creatinine 0.58 MG/DL Estimat Glomerular Filtration 100 ML/MIN Rate Random Glucose 83 MG/DL Calcium Level 7.0 MG/DL Protein Corrected Calcium 8.0 MG/DL Total Bilirubin 1.8 MG/DL Aspartate Amino Transf 18 U/L (AST/SGOT) Alanine Aminotransferase 95 U/L (ALT/SGPT) Alkaline Phosphatase 250 U/L Lactate Dehydrogenase 125 U/L Total Protein 5.2 GM/DL Albumin 1.8 GM/DL Administered Medications Medications (Trade) Dose Ordered Sig/José Route PRN Reason Start Time Stop Time Status Last Admin Dose Admin Sodium Chloride (NS Flush) 2 ml UNSCH PRN IV FLUSH FLUSH AFTER USING IV ACCESS 05/18/17 10:15 05/30/17 10:15 Sodium Chloride (NS Flush) 2 ml BID IV FLUSH 05/18/17 21:00 06/24/17 09:11 Ondansetron HCl (Zofran Inj) 4 mg Q6H PRN IVP NAUSEA OR VOMITING 05/18/17 10:15 06/08/17 04:56 Senna/Docusate Sodium (Rosalinda-Colace) 1 tab BID PO 05/18/17 21:00 06/15/17 20:22 Levothyroxine Sodium (Synthroid) 50 mcg DAILY@0600 PO 05/19/17 06:00 06/24/17 05:17 Pravastatin Sodium (Pravachol) 10 mg DAILY PO 05/19/17 09:00 06/24/17 09:08 Diphenhydramine HCl (Benadryl) 25 mg Q4H PRN PO FOR BLOOD PRODUCTS 05/19/17 01:30 06/24/17 09:09 Acetaminophen (Tylenol) 650 mg Q4H PRN PO BLOOD PRODUCTS 05/19/17 01:30 06/22/17 14:42 Furosemide (Lasix) 20 mg BID@09,18 PO 05/23/17 18:00 Hold 06/08/17 09:49 Potassium Chloride (KCl) 20 meq BID PO 05/28/17 21:00 Hold 06/08/17 09:49 Mupirocin 1 applic 1 applic BID EACH NARE 05/30/17 15:00 Hold 06/05/17 21:44 Filgrastim/ Dextrose (Neupogen Inj/ D5W Inj) 26.6 ml @ 106.4 mls/ hr DAILY@14 IV 05/31/17 14:00 06/23/17 13:01 Acyclovir (Zovirax 5% Oint (15 Gm)) 1 applic BID TOPICAL 06/01/17 15:00 06/13/17 09:45 Multi-Ingredient Mouthwash/Gargle (Magic Mouthwash Adult Liq) 5 ml QID SWISH-SWAL 06/03/17 13:00 06/21/17 21:47 Heparin Sodium (Porcine) (Heparin Central Flush) 200 units DAILY IV FLUSH 06/06/17 09:00 06/24/17 09:09 Sodium Chloride (NS Flush) 5 ml UNSCH PRN IV FLUSH SEE PROTOCOL TABLE 06/06/17 07:00 06/07/17 22:56 Heparin Sodium (Porcine) (Heparin Central Flush) 200 units UNSCH PRN IV FLUSH SEE PROTOCOL TABLE 06/06/17 07:00 06/22/17 05:08 Sodium Chloride (NS Flush) 5 ml UNSCH PRN IV FLUSH NEEDED 06/06/17 07:00 06/21/17 04:48 Sodium Chloride (NS Flush) 5 ml UNSCH PRN IV FLUSH SEE PROTOCOL TABLE 06/06/17 07:00 06/21/17 04:48 Eltrombopag (Promacta) 150 mg DAILY@06 PO 06/13/17 06:00 06/24/17 05:18 Acetaminophen (Tylenol) 650 mg QID PRN PO FEVER > 100.3 06/15/17 22:00 06/21/17 08:27 Pantoprazole Sodium (Protonix) 40 mg DAILY PO 06/17/17 09:00 06/24/17 09:08 Cyclosporine (SandIMMUNE) 300 mg BID@,18 PO 06/23/17 09:00 06/24/17 05:18 Cyclosporine (SandIMMUNE) 50 mg BID@,18 PO 06/23/17 09:00 06/24/17 05:18 Methylprednisolone (Medrol) 4 mg DAILY PO 06/24/17 09:00 06/24/17 09:00 Objective Remarks GENERAL: Elderly female sitting up in bed in [facility]. 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 left forearm skin tear with clean bandage. bandage removed and wound is clean with no active bleeding. HEAD: Normocephalic. bruise, right cheek EYES: No injection or drainage. NECK: Supple, trachea midline. CARDIOVASCULAR: Regular rate and rhythm RESPIRATORY: Breath sounds equal bilaterally. No accessory muscle use. GASTROINTESTINAL: Abdomen soft, non-tender, nondistended. EXTREMITIES: No cyanosis NEUROLOGICAL: aox3. normal speech. moving extremities. Assessment/Plan Problem List: (1) Pancytopenia Status: Acute Plan: -- +aplastic anemia -- bone marrow biopsy results show aplastic anemia -- s/p ATG and cyclosporine Assessment 82-year-old female with aplastic anemia s/p ATG and cyclosporine. Plan 1. Rx for Cyclosporine and Medrol written 2. patient clear for discharge from hematology perspective. d/c home on abx per ID recommendations 3. follow up in [facility] arranged for Tuesday with Dr. Marie. Attending Statement The exam, history, and the medical decision-making described in the above note were completed with the assistance of the mid-level provider. I reviewed and agree with the findings presented. I attest that I had a [id number] encounter with the patient on the same day, and personally performed and documented my assessment and findings in the medical record. Pt understand risk of going home, insistent she goes home. Motivated by son who will only be state side another week- before going to [facility]. Abx prophylaxis planned with ID. Continue cyclosporine and Promacta. Plans for transfusion in clinic on Tuesday. Anticipate need for transfusions 2-3x/week. Eager to go home- feels she will recover better at home. Advise to call if problems over the weekend, take temperature twice a day, monitor for bleeding. Cecilia Hughes Jun 24, 2017 11:57 Luna Marie MD Jun 24, 2017 19:02
--- NOTE | 2017-06-24 12:19 | HHI.PR ---
Addendum to Inpatient Note Additional Information dw Dr Osborn: pt can not be switched to other antiarythmial medx and has to stayu on amiodarone Also fluconazole will be added to her Rx for antifungal profilaxis Levaquion/ ciporo not an option migel Ayala, it is believed that pt rash was due to serum sickness seation to one of her hem/onc medx, but not to cefepime - cefepime is removed from allergy list Roseann Ham MD Jun 24, 2017 12:19
[2017-06-24] MEDS ORDERED: AMOXICILLIN/CLAVULANATE K 875 MG TAB PO SCH (13:00)
[2017-06-24] MEDS ORDERED: AZTREONAM INJ 1,000 MG in SODIUM CHLORIDE 0.9% INJ 100 ML IV SCH (13:00)
[2017-06-24] MEDS ORDERED: FUROSEMIDE 20 MG/2 ML VIAL IV PUSH ONE (14:30)
[2017-06-24] MEDS: FILGRASTIM INJ 480 MCG in DEXTROSE 5% IN WATER INJ 25 ML IV SCH ×2 (14:45)
[2017-06-24] MEDS ORDERED: AMOX875T2 PO (15:32)
[2017-06-24] MEDS ORDERED: VALT500T PO (15:32)
[2017-06-24] MEDS ORDERED: MEDR4TAB PO (16:51)
--- NOTE | 2017-06-24 17:33 | HHI.PR ---
Subjective Subjective Remarks Resting in bed but responds readily to verbal stimuli Patient receiving blood transfusion Then planning on discharge (Fernanda Monroy) Review of Systems Constitutional Constitutional Remarks 10 point ROS done positives noted, (Fernanda Monroy) Throat Throat Remarks Scabbed one third of lower lip sore, dry, slow improvement (Fernanda Monroy) GI/Abdomen GI/Abdomen Remarks Encourage by mouth fluids (Fernanda Monroy) Integumentary Skin Remarks rt. great toe (Fernanda Monroy) Vitals/Results Intake & Output 06/23/17 06/23/17 06/24/17 14:59 22:59 06:59 Intake Total 480 ml 360 ml 300 ml Output Total 350 ml 350 ml Balance 480 ml 10 ml -50 ml Intake Oral 480 ml 360 ml 300 ml Output Urine Total 350 ml 350 ml # Voids 2 # Bowel Movements 2 1 1 Vital Signs Vital Signs Date Time Temp Pulse Resp B/P Pulse Ox O2 Delivery O2 Flow Rate FiO2 06/24/17 15:02 98.4 67 16 171/87 93 06/24/17 14:42 97.7 67 14 167/85 96 06/24/17 12:45 97.5 66 16 164/77 95 06/24/17 12:38 97.8 67 16 156/75 94 06/24/17 11:10 97.4 63 16 157/74 95 06/24/17 10:53 96.7 63 16 161/74 93 06/24/17 08:00 97.6 66 18 125/63 94 06/24/17 04:00 98.7 63 16 112/52 98 06/24/17 00:00 97.6 67 16 152/71 95 06/23/17 20:00 98.6 99 16 98/53 94 (Fernanda Monroy) CBC/BMP: 06/24/17 0515 06/24/17 0515 Lab Results Laboratory Tests Test 06/24/17 06/24/17 06/24/17 05:00 05:15 08:38 Blood Type AB NEGATIVE Crossmatch Irradiated/Leukocyte-Reduced Irradiated/Leukocyte-Reduced RBC RBC Blood Bank Comment White Blood Count 1.3 TH/MM3 Red Blood Count 2.55 MIL/MM3 Hemoglobin 7.6 GM/DL Hematocrit 21.7 % Mean Corpuscular Volume 85.0 FL Mean Corpuscular Hemoglobin 29.7 PG Mean Corpuscular Hemoglobin 35.0 % Concent Red Cell Distribution Width 13.9 % Platelet Count 12 TH/MM3 Mean Platelet Volume 8.1 FL Neutrophils (%) (Auto) % Lymphocytes (%) (Auto) % Monocytes (%) (Auto) % Eosinophils (%) (Auto) % Basophils (%) (Auto) % Neutrophils # (Auto) TH/MM3 Lymphocytes # (Auto) TH/MM3 Monocytes # (Auto) TH/MM3 Eosinophils # (Auto) TH/MM3 Basophils # (Auto) TH/MM3 CBC Comment AUTO DIFF Differential Total Cells 25 Counted Lymphocytes % 96 % Monocytes % 4 % Differential Comment FINAL DIFF MANUAL Smudge Cells PRESENT Platelet Estimate LOW Platelet Morphology Comment NORMAL Ovalocytes 1+ Sodium Level 138 MEQ/L Potassium Level 3.1 MEQ/L Chloride Level 106 MEQ/L Carbon Dioxide Level 26.5 MEQ/L Anion Gap 6 MEQ/L Blood Urea Nitrogen 17 MG/DL Creatinine 0.58 MG/DL Estimat Glomerular Filtration 100 ML/MIN Rate Random Glucose 83 MG/DL Calcium Level 7.0 MG/DL Protein Corrected Calcium 8.0 MG/DL Total Bilirubin 1.8 MG/DL Aspartate Amino Transf 18 U/L (AST/SGOT) Alanine Aminotransferase 95 U/L (ALT/SGPT) Alkaline Phosphatase 250 U/L Lactate Dehydrogenase 125 U/L Total Protein 5.2 GM/DL Albumin 1.8 GM/DL Cyclosporine Level 103 COMMENT (Fernanda MonroyP) Physical Exam General General Appearance: Well Developed, No Acute Distress, Comfortable, Pale ( Fernanda Monroy. 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 (Fernanda Monroy. 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 & Moist (Fernanda Monroy. 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) Gastrointestinal/Abdomen GI Exam: Soft, Non-Tender, Bowel Sounds Present, Positive Bowel Movement, Non- Distended (Fernanda oMnroy) Musculoskeletal MS Exam: Normal Tone, Atrophy (mild) (Fernanda Monroy) Integumentary Skin Exam: Warm, Dry (Fernanda Monroy) Extremeties Extremities Exam: No Edema, Pedal Pulses Palpable (Fernanda Monroy) Neurologic Neuro Exam: Alert, Awake, Oriented, Speech Clear, 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, Manager Credit Risk Equal, 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 (Fernanda Monroy) Psychiatric Psych Exam: Appropriate Responses (Fernanda Monroy) PUD Prophylasis PUD Prophylaxis: Protonix (Fernanda Monroy) Assessment/Plan Assessment/Plan Right hallux pain/ecchymosis/swelling, status post bedside procedure 11/20/2016 pancytopenia, still continues to wax and wane Right hallux pain/ecchymosis/swelling, status post bedside procedure 11/20/2016 pancytopenia 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, secondary to herpes simplex type I, improved Right external ear cellulitis, Leukopenia, No evidence of gout Symptomatic anemia, Improved after transfusion Severe profound symptomatic thrombocytopenia, given platelets again today Uncontrolled aplastic anemia Acellular bone marrow per biopsy report Status post bone marrow biopsy 05/18/17 Recent diagnosis of atrial fibrillation Recent diagnosis of gastric erosions Maculopapular rash, poss drug induced, Cefepime dc Management appreciate ID input Placed on antibiotics for discharge home, discussed options with Dr. Espinoza, We'll continue amiodarone by mouth for her history of atrial fibrillation and tachycardia BP control, normal trends today Lisinopril for blood pressure control Lasix 20 mg twice a day oncology following Patient receiving transfusion before discharge Plan for home home health care, by mouth antibiotics Augmentin by mouth Instructions given for follow-up with oncology as outpatient Supportive care to patient and family D/W RN D/W , seen on his behalf D/W pt (Fernanda Monroy) Assessment/Plan seen, examined by myself, Dr Espinoza, today Discussed with patient and her family Discussed with oncology Discharge home today Discussed with infectious disease specialist Did not have Levaquin because of the major contraction with amiodarone Amiodarone could not be discontinued because of the risk of atrial fibrillation Discharge on Augmentin and ganciclovir by mouth Pseudomonas could not be covered after discharge The patient was recommended to seek medical attention immediately for any fever or any sign of sepsis Discussed with mid level provider The exam, history, and the medical decision-making described in the above note were completed with the assistance of the mid-level provider. I reviewed the findings presented. I attest that I had a [id number] encounter with the patient on the same day, and personally performed and documented my assessment and findings in the medical record. 40 minutes (Elan Espinoza MD) Fernanda Monroy Jun 24, 2017 17:33 Elan Espinoza MD Jun 24, 2017 18:55
[2017-06-24] MEDS ORDERED: DRONEDARONE 400 MG TAB PO SCH (18:00)
[2017-06-24] MEDS ORDERED: valACYclovir HCL 500 MG TAB PO SCH (19:00)
[2017-06-25] MEDS ORDERED: PHARMACY ORDERED LAB ONE (19:45)
== END 2017-06-24 19:03 | disposition home or self-care (01) | DRG 809 ==
LOC: HOCA 05-18 09:05
PROVIDERS: ADMIT Specialist; ATTEND Specialist
PROC: 07DR3ZX Extraction of Iliac Bone Marrow, Percutaneous Approach, Diagnostic (ICD-10-PCS; principal; 2017-05-18)
PROC: 30243R1 Transfusion of Nonautologous Platelets into Central Vein, Percutaneous Approach (ICD-10-PCS; 2017-05-18)
PROC: 30243N1 Transfusion of Nonautologous Red Blood Cells into Central Vein, Percutaneous Approach (ICD-10-PCS; 2017-05-18)
PROC: 02HV33Z Insertion of Infusion Device into Superior Vena Cava, Percutaneous Approach (ICD-10-PCS; 2017-05-20)
PROC: 0HDRXZZ Extraction of Toe Nail, External Approach (ICD-10-PCS; 2017-06-02)
PROC: 07DR3ZX Extraction of Iliac Bone Marrow, Percutaneous Approach, Diagnostic (ICD-10-PCS; 2017-06-21)
DX: D61.9 Aplastic anemia, unspecified (principal); T80.69XA Other serum reaction due to other serum, initial encounter; I48.91 Unspecified atrial fibrillation; K25.9 Gastric ulcer, unspecified as acute or chronic, without hemorrhage or perforation; E86.0 Dehydration; I10 Essential (primary) hypertension; K12.1 Other forms of stomatitis; E03.9 Hypothyroidism, unspecified; B00.1 Herpesviral vesicular dermatitis; S51.012A Laceration without foreign body of left elbow, initial encounter; S00.83XA Contusion of other part of head, initial encounter; R50.81 Fever presenting with conditions classified elsewhere; H60.11 Cellulitis of right external ear; L03.031 Cellulitis of right toe; D69.6 Thrombocytopenia, unspecified; D70.9 Neutropenia, unspecified; E87.6 Hypokalemia; E78.5 Hyperlipidemia, unspecified; L40.9 Psoriasis, unspecified; R01.1 Cardiac murmur, unspecified; L27.0 Generalized skin eruption due to drugs and medicaments taken internally; L60.0 Ingrowing nail; R19.7 Diarrhea, unspecified; W19.XXXA Unspecified fall, initial encounter; Y92.230 Patient room in hospital as the place of occurrence of the external cause; Z86.711 Personal history of pulmonary embolism; Z87.891 Personal history of nicotine dependence; Z96.641 Presence of right artificial hip joint; Z96.652 Presence of left artificial knee joint
CPT/HCPCS: 36430; 36569; 38221; 70450; 70486; 71010; 76937; 77001; 77012; 80048; 80053; 80074; 80076; 80158; 80202; 81001; 82565; 83615; 83735; 84155; 84550; 85007; 85027; 85097; 86077; 86403; 86703; 86850; 86860; 86870; 86880; 86900; 86901; 86920; 86922; 86965; 87015; 87040; 87070; 87077; 87102; 87116; 87186; 87205; 87206; 87497; 87529; 88184; 88185; 88237; 88264; 88280; 88305; 88311; 88313; 93005; C1751; C1830; G0364; J0133; J0692; J1442; J1642; J1720; J1940; J2175; J2248; J2270; J2405; J2920; J2997; J3010; J3370; J3480; J7030; J7050; J7502; J7509; J7515; P9016; P9035; P9037; P9040; Q0163